=== PATIENT | female | born 1955 | race Hispanic/Latino ===

== ENCOUNTER 2018-11-02 08:21 | Inpatient (IN) | payer SELFPAY ==
[2018-11-02] MEDS ORDERED: Pantoprazole 80 MG in Sodium Chloride 0.9% 100 ML IVP SCH (08:45)
[2018-11-02 09:04] LABS: #Lymphocytes 1.3 thou/uL (1.20-3.40); #Monocytes 0.4 thou/uL (0.11-0.59); #Neutrophils 14.2 thou/uL (1.40-6.50); %Basophils 0.2 % (0.0-1.0); %Eosinophils 0.2 % (0.0-10.0); %Lymphocytes 8.4 % (21.0-51.0); %Monocytes 2.3 % (0.0-10.0); %Neutrophils 88.9 % (42.0-75.0); Hemoglobin 9.1 g/dL (12.0-16.0); Mean Corpuscular HGB CONC 33.2 g/dL (32.0-36.0); Mean Corpuscular Hemoglobin 28.1 pg (27.0-31.0); Mean Corpuscular Volume 84.7 fL (78.0-98.0); Mean Platelet Volume 8.3 fL (7.4-10.4); Platelet Count 471 thou/uL (130-400); RBC Distribution Width 14.2 % (11.5-14.5); Red Blood Cell (RBC) Count 3.22 mill/uL (4.20-5.40)
[2018-11-02] MEDS ORDERED: Ondansetron PF 4 MG/2 ML Vial ONE ×2 (09:12→16:09)
[2018-11-02] MEDS ORDERED: Promethazine HCl 25 MG/ML VIAL ONE ×2 (09:12→09:57)
--- NOTE | 2018-11-02 09:22 | RAD ---
CHEST 1 VIEW: COMPARISON: 08/03/2018. HISTORY: Emesis. Hematemesis. FINDINGS: Normal cardiac silhouette. The pulmonary vessels and hilum are normal. Costophrenic angles are kati r. Diminished lung volumes, likely due to a poor inspiratory effort. No masses or consolidation. N o pneumothorax or osseous abnormalities. IMPRESSION: No acute cardiopulmonary process. POS: [facility]
[2018-11-02 09:24] LABS: INR-International Normal Ratio 1.2; PTT 26.2 SEC (22.9-36.1); Prothrombin Time 14.9 SEC (12.0-14.7)
[2018-11-02 09:25] LABS: ALT (SGPT) Less than 7 U/L (8-55); AST (SGOT) 11 U/L (5-34); Albumin 3.7 g/dL (3.4-4.8); Alkaline Phosphatase 56 U/L (40-150); Anion Gap 16 mmol/L (10-20); BUN (Urea Nitrogen) 44 mg/dL (9.8-20.1); Bilirubin, Total 0.2 mg/dL (0.2-1.2); Calc. Creatinine Clearance 0 mL/min (70-130); Carbon Dioxide 14 mmol/L (23-31); Chloride 113 mmol/L (98-107); Estimated GFR-MDRD 51; Globulin 2.7 g/dL (2.4-3.5); Glucose 194 mg/dL (80-115); Lipase 4 U/L (8-78); Potassium 3.1 mmol/L (3.5-5.1); Protein, Total 6.4 g/dL (6.0-8.3); Sodium 140 mmol/L (136-145)
--- NOTE | 2018-11-02 10:40 | HP ---
PRIMARY CARE PROVIDER: Adrienne Conway. HISTORY OF PRESENT ILLNESS: Referred to [facility] by [place] [facility] with upper GI bleed. The patient developed abdominal pain, nausea and vomiting last night. She had been vomiting about 12 hours, has been vomiting coffee-grounds emesis. She was hospitalized in August of this year, underwent an endoscopy, past specimen showed no Helicobacter pylori. She was discharged on intensive dose of Protonix, ran out after one month and has not had it refilled. PAST MEDICAL HISTORY: Upper GI bleeding, August 2018; diabetes mellitus type 2; hypertension; osteoarthritis. CURRENT MEDICATIONS: 1. Metformin 500 mg twice a day. 2. ProAir HFA. 3. Tramadol 50 mg one or two tabs p.r.n. 4. Lisinopril 20 mg twice a day. 5. Gabapentin 900 mg three times a day. 6. Clonidine 0.1 mg as needed. 7. Potassium chloride 20 mEq a day. ALLERGIES: CIPRO CAUSED HIVES. PAST SURGICAL HISTORY: Cholecystectomy, hysterectomy. SOCIAL HISTORY: Full code status. Daughter at bedside, next of kin. No alcohol, tobacco. FAMILY HISTORY: Negative for inheritable diseases. REVIEW OF SYSTEMS: GENERAL: No fever, chills, dizziness, fainting. EYES: No double vision, blurred vision, flashing lights. EAR, NOSE AND THROAT: No ear pain or drainage. No nasal bleeding. No trouble swallowing. CARDIAC: No chest pain, orthopnea or paroxysmal nocturnal dyspnea. RESPIRATION: No cough, wheezing or asthma. GASTROINTESTINAL: In addition to this was mentioned in the PI, she did have one case of dark stool last night. GENITOURINARY: No hematuria, dysuria. MUSCULOSKELETAL: No pain or swelling in arms or legs. NEUROLOGICAL: No strokes, seizures, or focal weakness. PSYCHIATRIC: No anxiety, depression. SKIN: No bruising, bleeding or rash. HEME/LYMPH: No tender or swollen lymph nodes in axilla, inguinal, cervical area. PHYSICAL EXAMINATION: GENERAL: The patient is somewhat lethargic, but oriented, cooperative. VITAL SIGNS: Blood pressure 140/70, pulse 110, respirations 20, temperature 99.2. HEAD, EYES, EARS, NOSE, AND THROAT: Reveal pupils are equal, round, and reactive to light. Extraocular movements are intact. Sclerae are white. Tympanic membranes clear. Nose clear. Oral mucous membranes are dry. Dental hygiene is adequate. NECK: Supple without jugular venous distention, adenopathy or thyromegaly. CHEST: Clear to auscultation percussion. HEART: Regular rate and rhythm. First and second heart sounds are clear. There are no appreciated murmurs or gallops. ABDOMEN: Soft. Bowel sounds are normal. There is no hepatosplenomegaly. No mass. No rebound or bruits. EXTREMITIES: Reveal no cyanosis, clubbing, or edema. PULSES: Carotid, radial, femoral, and dorsalis pedis pulses intact. SKIN: Warm and dry without bruises or rash. HEME/LYMPH: No tender or swollen lymph nodes in axilla, inguinal, cervical area. NEUROLOGICAL: Cranial nerves 2 through 12 intact. Deep tendon reflexes symmetric. IMAGING DATA: Have looked for an EKG, have not found one. We will order one, if not found. Chest x-ray, large air bubble in stomach. No cardiomegaly, CHF, or infiltrate; reviewed by me. LABORATORY DATA: Sodium 140, potassium 3.1, CO2 14, BUN 44, creatinine 1.08, blood sugar 194. Liver function tests normal. White count 16.0, hemoglobin 9.1, platelet count 471,000. ADMITTING DIAGNOSES: 1. Upper gastrointestinal bleeding. 2. Acute blood loss anemia. 3. History of peptic ulcer disease. 4. Diabetes mellitus type 2, not in control. 5. Hypertension. 6. Metabolic acidosis. 7. Hypokalemia. PLAN: 1. IV fluid resuscitation, start with a bolus. Continue at 150 mL an hour of normal saline. 2. 40 mg IV q.12 hours. 3. Serial H and H q.6 hours. 4. Replace potassium. 5. Accu-Chek, sliding scale. 6. GI consult. Job ID: [id number]
[2018-11-02] MEDS ORDERED: HumaLOG 300 UNITS/3 ML VIAL SC PRN (11:30)
[2018-11-02] MEDS ORDERED: Dextrose 5% in Water 1,000 ML IV PRN (11:30)
[2018-11-02] MEDS ORDERED: Dextrose 50% Abboject 50 ML SYRINGE SLOW IVP PRN (11:30)
[2018-11-02 12:50] LABS: Bilirubin Negative (Negative); Blood, Urine Negative (Negative); Clarity CLEAR (Clear); Glucose, Urine (Dipstick) Negative (Negative); Leukocyte Negative (Negative); Nitrite Negative (Negative); Protein, Urine (Dipstick) Negative (Neg-Trace); Specific Gravity, Urine 1.013 (1.002-1.036); Urobilinogen 0.2 mg/dL (0.2-1.0); pH, Urine 6.5 (5.0-9.0)
[2018-11-02 13:07] LABS: #Lymphocytes 1.3 thou/uL (1.20-3.40); #Monocytes 0.2 thou/uL (0.11-0.59); #Neutrophils 14.6 thou/uL (1.40-6.50); %Basophils 0.1 % (0.0-1.0); %Eosinophils 0.1 % (0.0-10.0); %Monocytes 1.1 % (0.0-10.0); %Neutrophils 90.8 % (42.0-75.0); Mean Corpuscular HGB CONC 33.6 g/dL (32.0-36.0); Mean Corpuscular Hemoglobin 28.4 pg (27.0-31.0); Mean Corpuscular Volume 84.7 fL (78.0-98.0); Mean Platelet Volume 7.9 fL (7.4-10.4); Platelet Count 438 thou/uL (130-400); RBC Distribution Width 14.1 % (11.5-14.5); White Blood Cell (WBC) Count 16.1 thou/uL (4.8-10.8)
[2018-11-02] MEDS ORDERED: Lidocaine 1% PF 5 ML VIAL ONE (16:09)
[2018-11-02] MEDS ORDERED: Succinylcholine Chloride 20 MG/ML 10 ml SYRINGE FS ONE (16:09)
[2018-11-02] MEDS ORDERED: Rocuronium Bromide 10 MG/ML (10ML VIAL) ONE (16:09)
[2018-11-02] MEDS ORDERED: Glycopyrrolate 0.2 MG/ML 5 ML SYRINGE ONE (16:09)
[2018-11-02] MEDS ORDERED: Esmolol 100 MG/10 ML VIAL ONE (16:09)
[2018-11-02] MEDS ORDERED: PROPOFOL 200 MG/20 ML VIAL ONE (16:09)
[2018-11-02] MEDS ORDERED: PHENYLEPHRINE-NS 100 MCG/ML 10 ML SYRINGE ONE (16:09)
[2018-11-02] MEDS ORDERED: ePHEDrine 50 MG/ML VIAL ONE (16:09)
[2018-11-02] MEDS ORDERED: Fentanyl 100 MCG/2 ML VIAL ONE ×2 (16:31→16:32)
[2018-11-02] MEDS ORDERED: Ondansetron HCl/PF 4 MG/2 ML Vial IVP PRN (17:44)
[2018-11-02] MEDS ORDERED: Promethazine HCl 25 MG/ML VIAL SLOW IVP PRN (17:44)
[2018-11-02] MEDS ORDERED: Promethazine HCl 25 MG/ML VIAL IM PRN (17:44)
[2018-11-02 17:59] LABS: Hemoglobin 11.5 g/dL (12.0-16.0); Mean Corpuscular HGB CONC 31.9 g/dL (32.0-36.0); Mean Corpuscular Hemoglobin 28.1 pg (27.0-31.0); Mean Corpuscular Volume 87.9 fL (78.0-98.0); Mean Platelet Volume 8.2 fL (7.4-10.4); Platelet Count 325 thou/uL (130-400); RBC Distribution Width 15.1 % (11.5-14.5); Red Blood Cell (RBC) Count 4.12 mill/uL (4.20-5.40); White Blood Cell (WBC) Count 14.8 thou/uL (4.8-10.8)
[2018-11-02 18:21] LABS: Anisocytosis SLIGHT = 6-15 cells (100X) (0-5/hpf); Band 9 % (5-11); Burr Cells SLIGHT = 2-5 cells (100X) (0-1/hpf); Hypochromia SLIGHT = 6-15 cells (100X) (0-5/hpf); Lymphocytes 18 % (21-51); MDiff Complete? YES; Neutrophil 72 % (42-75); Ovalocytes SLIGHT = 2-5 cells (100X) (0-1/hpf); Platelet Morphology Comment Appears Adequate; Polychromasia SLIGHT = 2-3 cells (100X) (0-2/hpf); Reactive Lymphocytes 1 % (0-10)
[2018-11-02] MEDS ORDERED: Labetalol HCl 100 MG/20 ML VIAL SLOW IVP PRN (19:14)
[2018-11-02] MEDS: Sodium Chloride 0.9% 1,000 ML IV SCH ×2 (20:15→20:16)
[2018-11-02] MEDS: Ondansetron ODT 4 MG TAB PO PRN (20:16)
[2018-11-02] MEDS: Pantoprazole 40 MG VIAL IVP SCH (20:17)
[2018-11-02 20:22] VITALS: BMI 27.4
[2018-11-02] MEDS: Labetalol HCl 100 MG/20 ML VIAL SLOW IVP PRN (22:09)
[2018-11-03] MEDS: Sodium Chloride 0.9% 1,000 ML IV SCH ×2 (00:09→06:22)
[2018-11-03] MEDS: Gabapentin 300 MG CAP PO SCH ×6 (00:09→23:03)
[2018-11-03 00:54] LABS: Band 1 % (5-11); Hemoglobin 11.4 g/dL (12.0-16.0); Hypochromia SLIGHT = 6-15 cells (100X) (0-5/hpf); Lymphocytes 6 % (21-51); MDiff Complete? YES; Mean Corpuscular HGB CONC 33.6 g/dL (32.0-36.0); Mean Corpuscular Hemoglobin 28.3 pg (27.0-31.0); Mean Corpuscular Volume 84.3 fL (78.0-98.0); Mean Platelet Volume 7.8 fL (7.4-10.4); Monocytes 2 % (0-10); Neutrophil 91 % (42-75); Platelet Count 282 thou/uL (130-400); Platelet Morphology Comment Appears Adequate; Red Blood Cell (RBC) Count 4.02 mill/uL (4.20-5.40); White Blood Cell (WBC) Count 20.1 thou/uL (4.8-10.8)
[2018-11-03] MEDS ORDERED: Promethazine HCl 25 MG/ML VIAL IM/IV PRN (01:52)
[2018-11-03] MEDS: Labetalol HCl 100 MG/20 ML VIAL SLOW IVP PRN (01:58)
[2018-11-03] MEDS: Morphine 4 MG/ML VIAL SLOW IVP PRN ×2 (02:07→08:37)
--- NOTE | 2018-11-03 05:28 | CON ---
DATE OF CONSULTATION: 11/02/2018 REFERRING DOCTOR: Radha Harp MD REASON FOR CONSULTATION: History of coffee ground vomiting and also black tarry stools. HISTORY OF PRESENT ILLNESS: Maisha Qureshi is a 63-year-old Latin-Maur[place] female, who is known to me from before. She was hospitalized in July 2018 with black tarry stool; underwent an EGD. She was found to have multiple gastric ulcers and also a necrotic ulcer in duodenal bulb. Her gastric biopsy was negative for Helicobacter pylori. She was discharged on PPI. She was also come and see me in my office, but she did not show for the appointment. The patient did take the medications for nearly about a month and then she ran out of medications. She stopped taking the medication subsequently. The patient has done well until last night. She was not taking aspirin or any NSAID medication. The patient noted epigastric discomfort, nausea, and vomiting and started having some black tarry stool and also vomited coffee-ground material. She did through the night and she went nauseous. She came to the ER and hospitalized. In the ER, she had a CBC done, which showed WBC of 16,000, hemoglobin 9.1 and hematocrit 27.3, which have dropped down to hemoglobin 8 and hematocrit 23.7. She was seen in the Day Surgery. She appears ill and she appears pale. She says she is having nausea and trying to gag and vomit. She did not vomit in the Day Surgery.She was also tachycardic with a pulse rate of 136, blood pressure 120/58. There is no other relevant history. ALLERGIES: CIPRO. SOCIAL HISTORY: The patient does not smoke or drink alcohol. MEDICAL ILLNESSES: 1. Hypertension. 2. Diabetes mellitus. 3. Osteoarthritis. 4. Upper GI bleeding in July 2018 and had an EGD and was found to have multiple gastric ulcers and also large ulcer in the duodenum. PAST SURGICAL HISTORY: 1. Hysterectomy. 2. Cholecystectomy. MEDICATIONS LIST: Reviewed, which include: 1. Metformin. 2. ProAir. 3. Tramadol. 4. Lisinopril. 5. Gabapentin. 6. Clonidine. 7. Potassium chloride. FAMILY HISTORY: There is no family history of cancer, stroke, or heart disease. REVIEW OF SYSTEMS: CONSTITUTIONAL: Remarkable for a feeling dizzy, feeling sick to her stomach, nausea, vomiting, vague abdominal discomfort, melena, coffee-ground vomiting. CENTRAL NERVOUS SYSTEM: She also feels dizzy and lightheaded. Other systems reviewed and are normal. PHYSICAL EXAMINATION: GENERAL: She appears pale. She is awake and communicative. She is tachycardic. VITAL SIGNS: Pulse is 136 and blood pressure 120/58. HEENT: Conjunctivae clear. NECK: Supple. No adenitis or thyromegaly noted. CARDIOVASCULAR SYSTEM: First and second heart sounds heard. LUNGS: Clear to auscultation. ABDOMEN: Soft. Abdomen is mildly tender over the epigastric area. There is no rebound or guarding. EXTREMITIES: Reveal no edema. LABORATORY DATA: Potassium 3.1, BUN is 44 most recent GI bleeding, creatinine 1.08, glucose 194, calcium 9. Bilirubin 0.2, AST 11, ALT 7, alkaline phosphatase 56, lipase is 4. CBC shows anemia, hemoglobin 8, hematocrit 23.7, WBC count is 16,000, platelets 458,000, polymorphs 90, lymphocytes 8. CBC on 08/07/2018, hemoglobin 10.6 and hematocrit 31.1. CLINICAL IMPRESSION: 1. Acute upper gastrointestinal bleeding, most likely from the ulceration. She took the medications only for few weeks and stopped taking the medications after 1 month of therapy. The patient's ulcers are quite large and I believe . 2. Anemia due to blood loss. 3. Hypertension. 4. Diabetes mellitus. 5. Osteoarthritis. 6. Gastric ulcers and large ulcer in the duodenum. RECOMMENDATIONS: 1. N.p.o., IV PPI, IV fluids. 2. Transfuse if she is tachycardic and I believe her blood count is going to drop down further. I will plan on EGD as soon as possible. The patient's son was in the room and he was able to talk to her and respond it to me, and she was explained about the plan of treatment. She is agreeable. Job ID: [id number]
[2018-11-03 06:35] LABS: Reticulocyte Count 1.8 % (0.5-1.5)
[2018-11-03 06:40] LABS: #Lymphocytes 2.3 thou/uL (1.20-3.40); #Monocytes 0.8 thou/uL (0.11-0.59); #Neutrophils 11.9 thou/uL (1.40-6.50); %Basophils 0.1 % (0.0-1.0); %Eosinophils 0.1 % (0.0-10.0); %Lymphocytes 15.6 % (21.0-51.0); %Monocytes 5.3 % (0.0-10.0); Hemoglobin 10.4 g/dL (12.0-16.0); Mean Corpuscular HGB CONC 33.8 g/dL (32.0-36.0); Mean Corpuscular Hemoglobin 28.1 pg (27.0-31.0); Mean Corpuscular Volume 82.9 fL (78.0-98.0); Mean Platelet Volume 8.3 fL (7.4-10.4); Platelet Count 282 thou/uL (130-400); RBC Distribution Width 14.8 % (11.5-14.5); Red Blood Cell (RBC) Count 3.71 mill/uL (4.20-5.40)
[2018-11-03 06:50] LABS: Anion Gap 14 mmol/L (10-20); BUN (Urea Nitrogen) 21 mg/dL (9.8-20.1); Calc. Creatinine Clearance 67 mL/min (70-130); Calcium 7.9 mg/dL (7.8-10.44); Carbon Dioxide 17 mmol/L (23-31); Chloride 110 mmol/L (98-107); Estimated GFR-MDRD 75; Glucose 141 mg/dL (80-115); Iron 128 ug/dL (50-170); Iron Binding Capacity, Total 365 mcg/dL (265-497); Magnesium 1.2 mg/dL (1.6-2.6); Sodium 139 mmol/L (136-145)
[2018-11-03 06:53] LABS: Potassium 1.9 mmol/L (3.5-5.1)
[2018-11-03] MEDS ORDERED: Potassium Chloride 20 MEQ TAB PO SCH ×2 (08:00→19:15)
[2018-11-03] MEDS ORDERED: Magnesium Sulfate 4 GM in Sodium Chloride 0.9% 250 ML 250 ML IVPB SCH (08:00)
[2018-11-03] MEDS ORDERED: Loperamide HCl 2 MG CAP PO PRN (08:01)
[2018-11-03] MEDS ORDERED: Bisacodyl 5 MG TAB PO PRN (08:01)
[2018-11-03] MEDS ORDERED: Sodium Chloride 0.65% Nasal 44 ML BOT EA NARE PRN (08:01)
[2018-11-03] MEDS ORDERED: Ondansetron PF 4 MG/2 ML Vial IVP PRN (08:01)
[2018-11-03] MEDS ORDERED: Diabetic Tussin 200 MG/10 ML UDCUP PO PRN (08:01)
[2018-11-03] MEDS ORDERED: Cepastat Lozenges 1 LOZ PO PRN (08:01)
[2018-11-03] MEDS ORDERED: hydrALAZINE 20 MG/ML VIAL SLOW IVP PRN (08:01)
[2018-11-03] MEDS ORDERED: Acetaminophen 500 MG TAB PO PRN (08:01)
[2018-11-03] MEDS ORDERED: Loratadine 10 MG TAB PO PRN (08:01)
[2018-11-03] MEDS ORDERED: Artificial Tears 18 DROP/0.9 ML EA EYE PRN (08:01)
[2018-11-03] MEDS ORDERED: Senokot S 8.6-50 MG TAB PO PRN (08:01)
[2018-11-03] MEDS ORDERED: Eucerin (Mineral Oil/Petrolatum,White) 30 gm Jar TOP PRN (08:01)
[2018-11-03] MEDS ORDERED: Benzonatate 100 MG CAP PO PRN (08:01)
[2018-11-03 08:20] LABS: Phosphorus 2.1 mg/dL (2.3-4.7)
[2018-11-03] MEDS ORDERED: Potassium Phosphate 30 MMOL in Sodium Chloride 0.9% 500 ML IVPB SCH (08:30)
[2018-11-03] MEDS ORDERED: Potassium Chloride 20 MEQ in Premix Bag 1 BAG IVPB SCH (08:30)
[2018-11-03] MEDS: NS 0.9% w/ 20 MEQ KCL 1,000 ML/1,000 ML BAG IV SCH (08:31)
--- NOTE | 2018-11-03 09:10 | OP ---
DATE OF PROCEDURE: 11/02/2018 OPERATIVE PROCEDURES: 1. Esophagogastroduodenoscopy with biopsy. 2. Esophagogastroduodenoscopy with injection of 1:10,000 epinephrine to control bleeding over the duodenal bulb. 3. Esophagogastroduodenoscopy with heater probe therapy. PREOPERATIVE DIAGNOSES: Acute GI bleeding, hematemesis, melena. The patient is undergoing EGD. POSTOPERATIVE DIAGNOSES: 1. Small gastric ulcer over the gastric antrum, nonbleeding. 2. Pyloric channel ulcer, not bleeding. 3. Large ulcer in the duodenal bulb with a visible vessel oozing of blood. DESCRIPTION OF PROCEDURE: The patient was intubated and was given sedation by Anesthesia Department. A bite block was placed. The patient was turned on the left lateral position. A Pentax video gastroscope under direct vision passed down the oropharynx, past the GE junction into the stomach. The esophageal mucosa appeared normal. There was no blood in the esophagus. In the GE junction, no Sunshine-Pastor tear or bleeding seen. The patient had about 200 to 300 mL of bilious material in stomach. No blood seen in the stomach. The fundus and cardia, gastric body, no pathology seen. The patient had a gastric ulcer over the gastric antrum, nonbleeding. She has another ulcer at the pyloric channel. There was no active bleeding. In the apex of the duodenal bulb, the patient was found to have ulceration with a visible vessel oozing blood. In the descending duodenum, no pathology seen. The scope was withdrawn back to the duodenal bulb. Water was irrigated and washed out. Injection of epinephrine 1:10,000, total of 6 mL at 1 mL increments. Following injection, a 7-[place]ong[place] BiCap probe was and the ulcer base cauterized with good hemostasis. The ulcer base several times using the probe and I did not see any bleeding. The scope was withdrawn back to the stomach and biopsy of the gastric antrum and gastric body. The stomach decompressed and scope removed. RECOMMENDATIONS: 1. Keep n.p.o. for tonight. 2. Serial hemoglobin and hematocrit. 3. IV PPI. 4. Transfuse p.r.n. Job ID: [id number]
[2018-11-03] MEDS: cloNIDine 0.1 MG TAB PO SCH ×2 (09:16→20:16)
[2018-11-03] MEDS: Lisinopril 20 MG TAB PO SCH (09:16)
[2018-11-03] MEDS: Pantoprazole 40 MG VIAL IVP SCH ×2 (09:17→20:17)
--- NOTE | 2018-11-03 11:15 | PDOC.PN ---
- Subjective Encounter Start Date: 11/03/18 Encounter Start Time: 08:30 -: old records requested/rev Patient seen and examined. No new complaints. No overnight events - Objective Resuscitation Status - Order Detail: 11/02/18 10:04 Resuscitation Status Routine Resuscitation Status: FULL: Full Resuscitation MAR Reviewed: Yes Vital Signs & Weight: Vital Signs (12 hours) Temp Pulse Resp BP BP Pulse Ox 11/03/18 09:16 185/75 H 11/03/18 08:00 100.0 F H 89 16 187/77 H 99 11/03/18 04:00 98.1 F 74 18 166/73 H 100 11/03/18 01:58 85 185/75 H 11/03/18 00:00 97.4 F L 85 18 185/75 H 99 Weight Weight 127 lb I&O: 11/02/18 11/03/18 11/04/18 06:59 06:59 06:59 Intake Total 1950 360 Output Total 900 Balance 1050 360 Result Diagrams: 11/03/18 05:36 11/03/18 05:28 Additional Labs: Accuchecks 11/03/18 11/02/18 11/02/18 05:14 20:54 14:51 POC Glucose 134 H 160 H 185 H Phys Exam - Physical Examination Constitutional: NAD HEENT: PERRLA, moist MMs, sclera anicteric Neck: no JVD, supple Respiratory: no wheezing, no rales, no rhonchi Cardiovascular: RRR, no significant murmur, no rub Gastrointestinal: soft, non-tender, no distention, positive bowel sounds Musculoskeletal: no edema, pulses present Neurological: non-focal, normal sensation Lymphatic: no nodes Psychiatric: normal affect, A&O x 3 Skin: no rash, normal turgor Dx/Plan (1) Anemia due to acute blood loss Code(s): D62 - ACUTE POSTHEMORRHAGIC ANEMIA Status: Acute (2) Hypokalemia Code(s): E87.6 - HYPOKALEMIA Status: Acute (3) Hypomagnesemia Code(s): E83.42 - HYPOMAGNESEMIA Status: Acute (4) Upper GI bleed Code(s): K92.2 - GASTROINTESTINAL HEMORRHAGE, UNSPECIFIED Status: Acute (5) Diabetes type 2, controlled Code(s): E11.9 - TYPE 2 DIABETES MELLITUS WITHOUT COMPLICATIONS Status: Chronic (6) Dyslipidemia Code(s): E78.5 - HYPERLIPIDEMIA, UNSPECIFIED Status: Chronic (7) HTN (hypertension) Code(s): I10 - ESSENTIAL (PRIMARY) HYPERTENSION Status: Chronic Qualifiers: (8) Neuropathic pain Status: Chronic (9) PUD (peptic ulcer disease) Code(s): K27.9 - PEPTIC ULC, SITE UNSP, UNSP AC OR CHR, W/O HEMOR OR PERF Status: Chronic (10) Restless leg syndrome Status: Chronic - Plan cont current plan of care, plan discussed w/ family, out of bed/ambulate * replace magnesium sulfate * replace potassium phosphate * change IVF with potassium * repeat labs tomorrow * discussed with family * continue protonix * medication reviewed as below * symptomatic treatment. Review of Systems - Review of Systems ENT: negative: Ear Pain, Ear Discharge, Nose Pain, Nose Discharge, Nose Congestion, Mouth Pain, Mouth Swelling, Throat Pain, Throat Swelling, Other Respiratory: negative: Cough, Dry, Shortness of Breath, Hemoptysis, SOB with Excertion, Pleuritic Pain, Sputum, Wheezing Cardiovascular: negative: chest pain, palpitations, orthopnea, paroxysmal nocturnal dyspnea, edema, light headedness, other Gastrointestinal: negative: Nausea, Vomiting, Abdominal Pain, Diarrhea, Constipation, Melena, Hematochezia, Other Genitourinary: negative: Dysuria, Frequency, Incontinence, Hematuria, Retention , Other Musculoskeletal: negative: Neck Pain, Shoulder Pain, Arm Pain, Back Pain, Hand Pain, Leg Pain, Foot Pain, Other - Medications/Allergies Allergies/Adverse Reactions: Allergies Allergy/AdvReac Type Severity Reaction Status Date / Time ciprofloxacin Allergy Verified 11/02/18 15:06 Medications: Current Medications Acetaminophen (Tylenol) 650 mg PO Q4H PRN PRN Reason: Headache/Fever/Mild Pain (1-3) Artificial Tears (Tears Naturale) 2 drop EA EYE PRN PRN PRN Reason: Dry Eyes Benzonatate (Tessalon) 100 mg PO Q6H PRN PRN Reason: Cough Bisacodyl (Dulcolax) 10 mg PO DAILYPRN PRN PRN Reason: Constipation Clonidine (Catapres) 0.1 mg PO BID [facility] Last Admin: 11/03/18 09:16 Dose: 0.1 mg Dextrose/Water (Dextrose 50%) 25 gm SLOW IVP PRN PRN PRN Reason: Hypoglycemia Gabapentin (Neurontin) 300 mg PO TID [facility] Last Admin: 11/03/18 09:16 Dose: 300 mg Gabapentin (Neurontin) 300 mg PO NOW [facility] Stop: 11/04/18 01:00 Last Admin: 11/03/18 00:09 Dose: 300 mg Glucagon (Glucagon) 1 mg IM PRN PRN PRN Reason: Hypoglycemia Guaifenesin (Robitussin Sf) 200 mg PO Q4H PRN PRN Reason: Cough Hydralazine HCl (Apresoline) 10 mg SLOW IVP Q4H PRN PRN Reason: SBP > 180 and HR < 70 Dextrose/Water (D5w) 1,000 mls @ 0 mls/hr IV .Q0M PRN PRN Reason: Hypoglycemia Potassium Chloride/Sodium Chloride (Ns 0.9% W/ 20 Meq Kcl) 1,000 ml in 1,000 mls @ 50 mls/hr IV .Q20H [facility] Last Admin: 11/03/18 08:31 Dose: 1,000 mls Potassium Phosphate 30 mmol/ (Sodium Chloride) 510 mls @ 83.3 mls/hr IVPB ONE [facility] Stop: 11/03/18 13:00 Last Admin: 11/03/18 09:22 Dose: 510 mls Insulin Human Lispro (Humalog) 0 units SC .MODERATE SLIDING SC PRN PRN Reason: Moderate Correctional Scale Labetalol HCl (Normodyne) 10 mg SLOW IVP Q4H PRN PRN Reason: SBP > 170, DBP > 100 Last Admin: 11/03/18 01:58 Dose: 10 mg Lisinopril (Zestril) 20 mg PO DAILY [facility] Last Admin: 11/03/18 09:16 Dose: 20 mg Loperamide HCl (Imodium) 2 mg PO PRN PRN PRN Reason: Diarrhea/Loose Stools Loratadine (Claritin) 10 mg PO DAILYPRN PRN PRN Reason: Sinus Symptoms Mineral Oil/White Petrolatum (Eucerin Cream) 0 gm TOP BIDPRN PRN PRN Reason: Dry Skin Ondansetron HCl (Zofran Odt) 4 mg PO Q6H PRN PRN Reason: Nausea/Vomiting Last Admin: 11/02/18 20:16 Dose: 4 mg Ondansetron HCl (Zofran) 4 mg IVP Q6H PRN PRN Reason: Nausea/Vomiting Pantoprazole Sodium (Protonix) 40 mg IVP Q12HR [facility] Last Admin: 11/03/18 09:17 Dose: 40 mg Promethazine HCl (Phenergan) 12.5 mg IM/IV Q6H PRN PRN Reason: Nausea/Vomiting Last Admin: 11/03/18 02:08 Dose: 12.5 mg Senna/Docusate Sodium (Senokot S) 2 tab PO BID PRN PRN Reason: Constipation Sodium Chloride ([place] Nasal [place] 0.65%) 0 ml EA NARE QIDPRN PRN PRN Reason: Nasal Congestion Throat Lozenges (Cepastat Lozenges) 1 tyler PO Q2H PRN PRN Reason: Sore Throat
[2018-11-03] MEDS: Acetaminophen 325 MG TAB PO PRN (11:23)
[2018-11-03 18:35] LABS: Potassium 2.8 mmol/L (3.5-5.1)
[2018-11-03] MEDS: Ondansetron ODT 4 MG TAB PO PRN (22:11)
[2018-11-04] MEDS: Acetaminophen 325 MG TAB PO PRN (01:49)
[2018-11-04] MEDS: NS 0.9% w/ 20 MEQ KCL 1,000 ML/1,000 ML BAG IV SCH ×2 (05:22→17:37)
[2018-11-04 06:09] LABS: #Eosinphils 0.1 thou/uL (0.0-0.7); #Lymphocytes 2.9 thou/uL (1.20-3.40); #Monocytes 0.7 thou/uL (0.11-0.59); #Neutrophils 4.1 thou/uL (1.40-6.50); %Basophils 0.6 % (0.0-1.0); %Eosinophils 0.8 % (0.0-10.0); %Lymphocytes 37.8 % (21.0-51.0); %Monocytes 8.6 % (0.0-10.0); %Neutrophils 52.2 % (42.0-75.0); Hemoglobin 8.4 g/dL (12.0-16.0); Mean Corpuscular HGB CONC 34.2 g/dL (32.0-36.0); Mean Corpuscular Hemoglobin 29.1 pg (27.0-31.0); Mean Corpuscular Volume 85.1 fL (78.0-98.0); Mean Platelet Volume 8.1 fL (7.4-10.4); Platelet Count 237 thou/uL (130-400); RBC Distribution Width 15.1 % (11.5-14.5); Red Blood Cell (RBC) Count 2.88 mill/uL (4.20-5.40); White Blood Cell (WBC) Count 7.8 thou/uL (4.8-10.8)
[2018-11-04 06:29] LABS: ALT (SGPT) Less than 7 U/L (8-55); AST (SGOT) 15 U/L (5-34); Alkaline Phosphatase 39 U/L (40-150); Anion Gap 11 mmol/L (10-20); BUN (Urea Nitrogen) 17 mg/dL (9.8-20.1); Bilirubin, Total 0.4 mg/dL (0.2-1.2); Calc. Creatinine Clearance 71 mL/min (70-130); Calcium 7.8 mg/dL (7.8-10.44); Carbon Dioxide 16 mmol/L (23-31); Chloride 115 mmol/L (98-107); Estimated GFR-MDRD 79; Glucose 110 mg/dL (80-115); Magnesium 2.5 mg/dL (1.6-2.6); Sodium 139 mmol/L (136-145)
[2018-11-04 06:38] LABS: Potassium 2.9 mmol/L (3.5-5.1)
[2018-11-04] MEDS: Potassium Chloride 20 MEQ TAB PO SCH ×2 (07:34→09:41)
--- NOTE | 2018-11-04 08:28 | PRG ---
DATE OF SERVICE: 11/03/2018 SUBJECTIVE: This is a 63-year-old female, hospitalized with melena, vomiting coffee-ground material. She had an EGD done yesterday, which revealed bleeding peptic ulcer over the duodenal bulb. This was injected with epinephrine and cauterized. She had done well overnight. She has had no stool through the night and this morning. She has no more nausea. She has severe arthritis and has complained of severe pain in the legs. She is tolerating diabetic diet without any nausea. Her blood count has been pretty stable. After transfusion, it came up to 11.5 and then dipped to 10.4. This is most likely from dehydration. Her BUN was 44, does drop to 21 today. Her potassium level is low at . symptoms except for the pain over both legs. PHYSICAL EXAMINATION: VITAL SIGNS: Afebrile, pulse 75, blood pressure is 141/72. HEENT: Conjunctivae are clear. CARDIOVASCULAR SYSTEM: First and second heart sounds. LUNGS: Clear to auscultation. ABDOMEN: Soft. No organomegaly. No tenderness. No masses. IMPRESSION: Bleeding peptic ulcer and she had similar episodes in July 2018. Also likely is healing and the large ulcer seen on the gastric antrum has almost healed. The duodenal ulcer is also healing. However, she was found to have visible vessel bleeding yesterday. She had injection of epinephrine followed by BiCap probe therapy. RECOMMENDATIONS: 1. Avoid NSAID and aspirin. 2. Continue PPI. I had a long talk with the patient and explained that she needs to be on long-term PPI. 3. If the patient does well overnight without any problem, may consider discharge home. I would recommend long-term PPI. I would not for the next several years. Job ID: [id number]
--- NOTE | 2018-11-04 09:30 | PDOC.PN ---
- Subjective Encounter Start Date: 11/04/18 Encounter Start Time: 08:40 Patient seen and examined. No new complaints. No overnight events - Objective Resuscitation Status - Order Detail: 11/02/18 10:04 Resuscitation Status Routine Resuscitation Status: FULL: Full Resuscitation MAR Reviewed: Yes Vital Signs & Weight: Vital Signs (12 hours) Temp Pulse Resp BP BP BP BP 11/04/18 05:00 126/61 123/67 121/71 122/61 11/04/18 04:00 98.6 F 72 18 126/61 Pulse Ox 11/04/18 05:00 11/04/18 04:00 98 Weight Weight 127 lb I&O: 11/03/18 11/04/18 11/05/18 06:59 06:59 06:59 Intake Total 1950 1940 Output Total 900 Balance 1050 1940 Result Diagrams: 11/04/18 05:51 11/04/18 05:51 Additional Labs: Accuchecks 11/04/18 11/03/18 11/03/18 04:41 20:44 16:48 POC Glucose 116 H 144 H 143 H 11/03/18 11:26 POC Glucose 204 H Phys Exam - Physical Examination Constitutional: NAD HEENT: PERRLA, moist MMs, sclera anicteric Neck: no JVD, supple Respiratory: no wheezing, no rales, no rhonchi Cardiovascular: RRR, no significant murmur, no rub Gastrointestinal: soft, non-tender, no distention, positive bowel sounds Musculoskeletal: no edema, pulses present Neurological: non-focal, normal sensation Dx/Plan (1) Anemia due to acute blood loss Code(s): D62 - ACUTE POSTHEMORRHAGIC ANEMIA Status: Acute (2) Hypokalemia Code(s): E87.6 - HYPOKALEMIA Status: Acute (3) Hypomagnesemia Code(s): E83.42 - HYPOMAGNESEMIA Status: Acute (4) Upper GI bleed Code(s): K92.2 - GASTROINTESTINAL HEMORRHAGE, UNSPECIFIED Status: Acute (5) Diabetes type 2, controlled Code(s): E11.9 - TYPE 2 DIABETES MELLITUS WITHOUT COMPLICATIONS Status: Chronic (6) Dyslipidemia Code(s): E78.5 - HYPERLIPIDEMIA, UNSPECIFIED Status: Chronic (7) HTN (hypertension) Code(s): I10 - ESSENTIAL (PRIMARY) HYPERTENSION Status: Chronic Qualifiers: (8) Neuropathic pain Status: Chronic (9) PUD (peptic ulcer disease) Code(s): K27.9 - PEPTIC ULC, SITE UNSP, UNSP AC OR CHR, W/O HEMOR OR PERF Status: Chronic (10) Restless leg syndrome Status: Chronic - Plan cont current plan of care, plan discussed w/ family * replace potassium * check mag and phos * medication reviewed as below * symptomatic treatment * continue IVF * discharge soon * discussed with family bedside * ambulate as tolerated * educated about avoidance of NSAID. * her H & H has dropped today, will repeat labs tomorrow Review of Systems - Review of Systems ENT: negative: Ear Pain, Ear Discharge, Nose Pain, Nose Discharge, Nose Congestion, Mouth Pain, Mouth Swelling, Throat Pain, Throat Swelling, Other Respiratory: negative: Cough, Dry, Shortness of Breath, Hemoptysis, SOB with Excertion, Pleuritic Pain, Sputum, Wheezing Cardiovascular: negative: chest pain, palpitations, orthopnea, paroxysmal nocturnal dyspnea, edema, light headedness, other Gastrointestinal: negative: Nausea, Vomiting, Abdominal Pain, Diarrhea, Constipation, Melena, Hematochezia, Other Genitourinary: negative: Dysuria, Frequency, Incontinence, Hematuria, Retention , Other Musculoskeletal: negative: Neck Pain, Shoulder Pain, Arm Pain, Back Pain, Hand Pain, Leg Pain, Foot Pain, Other - Medications/Allergies Allergies/Adverse Reactions: Allergies Allergy/AdvReac Type Severity Reaction Status Date / Time ciprofloxacin Allergy Verified 11/02/18 15:06 Medications: Current Medications Acetaminophen (Tylenol) 650 mg PO Q4H PRN PRN Reason: Headache/Fever/Mild Pain (1-3) Last Admin: 11/04/18 01:49 Dose: 650 mg Artificial Tears (Tears Naturale) 2 drop EA EYE PRN PRN PRN Reason: Dry Eyes Benzonatate (Tessalon) 100 mg PO Q6H PRN PRN Reason: Cough Bisacodyl (Dulcolax) 10 mg PO DAILYPRN PRN PRN Reason: Constipation Clonidine (Catapres) 0.1 mg PO BID [facility] Last Admin: 11/03/18 20:16 Dose: 0.1 mg Dextrose/Water (Dextrose 50%) 25 gm SLOW IVP PRN PRN PRN Reason: Hypoglycemia Gabapentin (Neurontin) 300 mg PO TID [facility] Last Admin: 11/03/18 20:17 Dose: 300 mg Glucagon (Glucagon) 1 mg IM PRN PRN PRN Reason: Hypoglycemia Guaifenesin (Robitussin Sf) 200 mg PO Q4H PRN PRN Reason: Cough Hydralazine HCl (Apresoline) 10 mg SLOW IVP Q4H PRN PRN Reason: SBP > 180 and HR < 70 Dextrose/Water (D5w) 1,000 mls @ 0 mls/hr IV .Q0M PRN PRN Reason: Hypoglycemia Potassium Chloride/Sodium Chloride (Ns 0.9% W/ 20 Meq Kcl) 1,000 ml in 1,000 mls @ 50 mls/hr IV .Q20H [facility] Last Admin: 11/04/18 05:22 Dose: Not Given Insulin Human Lispro (Humalog) 0 units SC .MODERATE SLIDING SC PRN PRN Reason: Moderate Correctional Scale Labetalol HCl (Normodyne) 10 mg SLOW IVP Q4H PRN PRN Reason: SBP > 170, DBP > 100 Last Admin: 11/03/18 01:58 Dose: 10 mg Lisinopril (Zestril) 20 mg PO DAILY [facility] Last Admin: 11/03/18 09:16 Dose: 20 mg Loperamide HCl (Imodium) 2 mg PO PRN PRN PRN Reason: Diarrhea/Loose Stools Loratadine (Claritin) 10 mg PO DAILYPRN PRN PRN Reason: Sinus Symptoms Mineral Oil/White Petrolatum (Eucerin Cream) 0 gm TOP BIDPRN PRN PRN Reason: Dry Skin Ondansetron HCl (Zofran Odt) 4 mg PO Q6H PRN PRN Reason: Nausea/Vomiting Last Admin: 11/03/18 22:11 Dose: 4 mg Ondansetron HCl (Zofran) 4 mg IVP Q6H PRN PRN Reason: Nausea/Vomiting Last Admin: 11/03/18 18:22 Dose: 4 mg Pantoprazole Sodium (Protonix) 40 mg IVP Q12HR [facility] Last Admin: 11/03/18 20:17 Dose: 40 mg Potassium Chloride (K-Dur) 40 meq PO Q3H [facility] Stop: 11/04/18 10:01 Last Admin: 03/29/19 07:34 Dose: 40 meq Promethazine HCl (Phenergan) 12.5 mg IM/IV Q6H PRN PRN Reason: Nausea/Vomiting Last Admin: 11/03/18 02:08 Dose: 12.5 mg Senna/Docusate Sodium (Senokot S) 2 tab PO BID PRN PRN Reason: Constipation Sodium Chloride ([place] Nasal [place] 0.65%) 0 ml EA NARE QIDPRN PRN PRN Reason: Nasal Congestion Sodium Chloride (Flush - Normal Saline) 10 ml IVF Q12HR [facility] Sodium Chloride (Flush - Normal Saline) 10 ml IVF PRN PRN PRN Reason: Saline Flush Throat Lozenges (Cepastat Lozenges) 1 tyler PO Q2H PRN PRN Reason: Sore Throat
[2018-11-04 09:31] LABS: Phosphorus 1.2 mg/dL (2.3-4.7)
[2018-11-04] MEDS: Gabapentin 300 MG CAP PO SCH ×3 (09:41→20:19)
[2018-11-04] MEDS: cloNIDine 0.1 MG TAB PO SCH ×2 (09:42→20:19)
[2018-11-04] MEDS: Pantoprazole 40 MG VIAL IVP SCH ×2 (09:42→20:19)
[2018-11-04] MEDS: Lisinopril 20 MG TAB PO SCH (09:42)
[2018-11-04] MEDS ORDERED: Potassium Phosphate 30 MMOL in Sodium Chloride 0.9% 500 ML IVPB SCH (09:45)
[2018-11-04] MEDS: K-Phos Neutral 250 MG TAB PO SCH (16:11)
--- NOTE | 2018-11-04 22:40 | PRG ---
DATE OF SERVICE: 11/04/2018 REASON FOR CONSULTATION: Melena. SUBJECTIVE: The patient states that she was doing well until earlier this morning when she had a further episode of black semi-solid to liquid stools that was associated with increased weakness and shortness of breath. Further in the day, she had another episode of this darker black stool that was similar to symptoms that she experienced prior to admission. Currently, she states that she has mild shortness of breath while at rest and exertion in addition to weakness with inability to adequately ambulate without help. Otherwise, she denies any nausea, vomiting, fevers, chills, abdominal pain, hematemesis, or hematochezia. PHYSICAL EXAMINATION: VITAL SIGNS: Temperature 97.4, pulse 67, blood pressure 122/67, respiratory rate 16, saturating 100% on room air. GENERAL: The patient was lying in bed, in no acute distress, alert and oriented x4. CARDIOVASCULAR: Regular rate and rhythm. RESPIRATORY: Clear to auscultation bilaterally. ABDOMEN: Normoactive bowel sounds. Soft, nondistended. Tenderness to palpation in the midepigastric and right upper quadrant. EXTREMITIES: No cyanosis, clubbing, or edema. LABORATORY DATA: CBC with a white blood cell count of 7.8, hemoglobin 8.4, hematocrit 24.5, platelets 237. Chemistry with a sodium of 139, potassium 2.9, chloride 115, CO2 of 16, BUN 17, creatinine 0.74, glucose 110. IMAGING DATA: No current GI imaging is available for review. ASSESSMENT AND PLAN: The patient is a 63-year-old female with past medical history of diabetes, hypertension, osteoarthritis, and prior episode of gastrointestinal bleeding in August 2018, presenting with melena secondary to a bleeding gastric ulcer that was intervened on November 02, 2018. Melena: The patient initially presented with complaints of abdominal pain, nausea, and vomiting that was accompanied by vomiting of coffee-grounds emesis and possible melenic type stool. She subsequently underwent EGD on November 02, 2018, with findings of multiple gastric ulcers, but also a duodenal bulb ulcer that exhibited a visible vessel and active bleeding at the time of endoscopy. This was intervened upon with epinephrine injection and bipolar cautery with good hemostasis achieved. However, over the last 24 hours, the patient has exhibited increased weakness, shortness of breath as well as melenic type stools that have been accompanied by drop in her H and H. at this time, this is concerning for rebleeding from one of these ulcer sites. RECOMMENDATIONS: 1. Would continue to trend H and H and transfuse as necessary to maintain an H and H of 02/26. 2. Continue to monitor clinically for signs of active GI bleeding. 3. If the patient's H and H continued to decline, I would plan for an EGD tomorrow morning for repeat evaluation of the upper GI tract and intervention if active bleeding is seen at that time .. 4. Please make the patient n.p.o. at midnight in possible anticipation for that procedure. We will continue to follow. Please call with any questions. Job ID: [id number]
[2018-11-05] MEDS: NS 0.9% w/ 20 MEQ KCL 1,000 ML/1,000 ML BAG IV SCH (01:27)
[2018-11-05 06:52] LABS: Anion Gap 10 mmol/L (10-20); BUN (Urea Nitrogen) 12 mg/dL (9.8-20.1); Calc. Creatinine Clearance 84 mL/min (70-130); Carbon Dioxide 16 mmol/L (23-31); Chloride 117 mmol/L (98-107); Estimated GFR-MDRD Greater than 90; Glucose 107 mg/dL (80-115); Potassium 3.7 mmol/L (3.5-5.1); Sodium 139 mmol/L (136-145)
[2018-11-05 07:08] LABS: Phosphorus 2.3 mg/dL (2.3-4.7)
[2018-11-05] MEDS: Lisinopril 20 MG TAB PO SCH (08:01)
[2018-11-05] MEDS: cloNIDine 0.1 MG TAB PO SCH ×2 (08:01→20:46)
[2018-11-05] MEDS: Gabapentin 300 MG CAP PO SCH ×3 (08:01→20:45)
[2018-11-05] MEDS: Pantoprazole 40 MG VIAL IVP SCH ×2 (08:02→20:47)
[2018-11-05 08:39] LABS: Band 3 % (5-11); Eosinophils 3 % (0-10); Hemoglobin 8.6 g/dL (12.0-16.0); Lymphocytes 52 % (21-51); MDiff Complete? YES; Mean Corpuscular HGB CONC 33.5 g/dL (32.0-36.0); Mean Corpuscular Hemoglobin 29.8 pg (27.0-31.0); Mean Corpuscular Volume 88.9 fL (78.0-98.0); Mean Platelet Volume 8.4 fL (7.4-10.4); Monocytes 2 % (0-10); Neutrophil 40 % (42-75); Platelet Count 233 thou/uL (130-400); RBC Distribution Width 15.9 % (11.5-14.5); Red Blood Cell (RBC) Count 2.89 mill/uL (4.20-5.40); White Blood Cell (WBC) Count 7.3 thou/uL (4.8-10.8)
--- NOTE | 2018-11-05 10:33 | PDOC.PN ---
- Subjective Encounter Start Date: 11/05/18 Encounter Start Time: 09:20 Patient seen and examined. No new complaints. No overnight events - Objective Resuscitation Status - Order Detail: 11/02/18 10:04 Resuscitation Status Routine Resuscitation Status: FULL: Full Resuscitation MAR Reviewed: Yes Vital Signs & Weight: Vital Signs (12 hours) Temp Pulse Resp BP BP BP BP 11/05/18 09:54 156/78 H 11/05/18 08:01 180/81 H 11/05/18 08:00 82 180/81 H 11/05/18 07:57 79 195/65 H 11/05/18 07:33 99.8 F H 88 16 11/05/18 04:00 97.8 F 67 18 149/75 H 11/04/18 23:46 98.1 F 72 18 98/60 BP Pulse Ox 11/05/18 09:54 11/05/18 08:01 99 11/05/18 08:00 99 11/05/18 07:57 99 11/05/18 07:33 193/79 H 99 11/05/18 04:00 99 11/04/18 23:46 99 Weight Weight 127 lb I&O: 11/04/18 11/05/18 11/06/18 06:59 06:59 06:59 Intake Total 1940 950 Balance 1940 950 Result Diagrams: 11/05/18 06:09 11/05/18 06:09 Additional Labs: Accuchecks 11/05/18 11/04/18 11/04/18 05:14 20:58 16:06 POC Glucose 112 H 136 H 109 11/04/18 11:12 POC Glucose 196 H Phys Exam - Physical Examination Constitutional: NAD HEENT: PERRLA, moist MMs, sclera anicteric Neck: no JVD, supple Respiratory: no wheezing, no rales, no rhonchi Cardiovascular: RRR, no significant murmur, no rub Gastrointestinal: soft, non-tender, no distention, positive bowel sounds Musculoskeletal: no edema, pulses present Neurological: non-focal, normal sensation, moves all 4 limbs Lymphatic: no nodes Psychiatric: normal affect, A&O x 3 Skin: no rash, normal turgor Dx/Plan (1) Anemia due to acute blood loss Code(s): D62 - ACUTE POSTHEMORRHAGIC ANEMIA Status: Acute (2) Hypokalemia Code(s): E87.6 - HYPOKALEMIA Status: Acute (3) Hypomagnesemia Code(s): E83.42 - HYPOMAGNESEMIA Status: Acute (4) Upper GI bleed Code(s): K92.2 - GASTROINTESTINAL HEMORRHAGE, UNSPECIFIED Status: Acute (5) Diabetes type 2, controlled Code(s): E11.9 - TYPE 2 DIABETES MELLITUS WITHOUT COMPLICATIONS Status: Chronic (6) Dyslipidemia Code(s): E78.5 - HYPERLIPIDEMIA, UNSPECIFIED Status: Chronic (7) HTN (hypertension) Code(s): I10 - ESSENTIAL (PRIMARY) HYPERTENSION Status: Chronic Qualifiers: (8) Neuropathic pain Status: Chronic (9) PUD (peptic ulcer disease) Code(s): K27.9 - PEPTIC ULC, SITE UNSP, UNSP AC OR CHR, W/O HEMOR OR PERF Status: Chronic (10) Restless leg syndrome Status: Chronic - Plan cont current plan of care, plan discussed w/ family * stable H & H * medication reviewed as below * symptomatic treatment * overall doing well. * DC if GI OK Review of Systems - Review of Systems ENT: negative: Ear Pain, Ear Discharge, Nose Pain, Nose Discharge, Nose Congestion, Mouth Pain, Mouth Swelling, Throat Pain, Throat Swelling, Other Respiratory: negative: Cough, Dry, Shortness of Breath, Hemoptysis, SOB with Excertion, Pleuritic Pain, Sputum, Wheezing Cardiovascular: negative: chest pain, palpitations, orthopnea, paroxysmal nocturnal dyspnea, edema, light headedness, other Gastrointestinal: negative: Nausea, Vomiting, Abdominal Pain, Diarrhea, Constipation, Melena, Hematochezia, Other Genitourinary: negative: Dysuria, Frequency, Incontinence, Hematuria, Retention , Other Musculoskeletal: negative: Neck Pain, Shoulder Pain, Arm Pain, Back Pain, Hand Pain, Leg Pain, Foot Pain, Other Skin: negative: Rash, Lesions, Joe, Bruising, Other - Medications/Allergies Allergies/Adverse Reactions: Allergies Allergy/AdvReac Type Severity Reaction Status Date / Time ciprofloxacin Allergy Verified 11/02/18 15:06 Medications: Current Medications Acetaminophen (Tylenol) 650 mg PO Q4H PRN PRN Reason: Headache/Fever/Mild Pain (1-3) Last Admin: 11/04/18 01:49 Dose: 650 mg Artificial Tears (Tears Naturale) 2 drop EA EYE PRN PRN PRN Reason: Dry Eyes Benzonatate (Tessalon) 100 mg PO Q6H PRN PRN Reason: Cough Bisacodyl (Dulcolax) 10 mg PO DAILYPRN PRN PRN Reason: Constipation Clonidine (Catapres) 0.1 mg PO BID [facility] Last Admin: 11/05/18 08:01 Dose: 0.1 mg Dextrose/Water (Dextrose 50%) 25 gm SLOW IVP PRN PRN PRN Reason: Hypoglycemia Gabapentin (Neurontin) 300 mg PO TID [facility] Last Admin: 11/05/18 08:01 Dose: 300 mg Glucagon (Glucagon) 1 mg IM PRN PRN PRN Reason: Hypoglycemia Guaifenesin (Robitussin Sf) 200 mg PO Q4H PRN PRN Reason: Cough Hydralazine HCl (Apresoline) 10 mg SLOW IVP Q4H PRN PRN Reason: SBP > 180 and HR < 70 Dextrose/Water (D5w) 1,000 mls @ 0 mls/hr IV .Q0M PRN PRN Reason: Hypoglycemia Insulin Human Lispro (Humalog) 0 units SC .MODERATE SLIDING SC PRN PRN Reason: Moderate Correctional Scale Labetalol HCl (Normodyne) 10 mg SLOW IVP Q4H PRN PRN Reason: SBP > 170, DBP > 100 Last Admin: 11/03/18 01:58 Dose: 10 mg Lisinopril (Zestril) 20 mg PO DAILY [facility] Last Admin: 11/05/18 08:01 Dose: 20 mg Loperamide HCl (Imodium) 2 mg PO PRN PRN PRN Reason: Diarrhea/Loose Stools Loratadine (Claritin) 10 mg PO DAILYPRN PRN PRN Reason: Sinus Symptoms Mineral Oil/White Petrolatum (Eucerin Cream) 0 gm TOP BIDPRN PRN PRN Reason: Dry Skin Ondansetron HCl (Zofran Odt) 4 mg PO Q6H PRN PRN Reason: Nausea/Vomiting Last Admin: 11/03/18 22:11 Dose: 4 mg Ondansetron HCl (Zofran) 4 mg IVP Q6H PRN PRN Reason: Nausea/Vomiting Last Admin: 11/03/18 18:22 Dose: 4 mg Pantoprazole Sodium (Protonix) 40 mg IVP Q12HR [facility] Last Admin: 11/05/18 08:02 Dose: 40 mg Phosphorus (Kphos Neutral) 500 mg PO BID[facility] Last Admin: 11/04/18 16:11 Dose: 500 mg Promethazine HCl (Phenergan) 12.5 mg IM/IV Q6H PRN PRN Reason: Nausea/Vomiting Last Admin: 11/03/18 02:08 Dose: 12.5 mg Senna/Docusate Sodium (Senokot S) 2 tab PO BID PRN PRN Reason: Constipation Sodium Chloride ([place] Nasal [place] 0.65%) 0 ml EA NARE QIDPRN PRN PRN Reason: Nasal Congestion Sodium Chloride (Flush - Normal Saline) 10 ml IVF Q12HR [facility] Last Admin: 11/05/18 07:44 Dose: Not Given Sodium Chloride (Flush - Normal Saline) 10 ml IVF PRN PRN PRN Reason: Saline Flush Throat Lozenges (Cepastat Lozenges) 1 tyler PO Q2H PRN PRN Reason: Sore Throat
--- NOTE | 2018-11-05 11:03 | DIS ---
DATE OF ADMISSION: 11/02/2018 DATE OF DISCHARGE: 11/05/2018 PRIMARY CARE PHYSICIAN: [facility] Call admission. DISCHARGE DISPOSITION: Home. PRIMARY DISCHARGE DIAGNOSES: 1. Acute upper gastrointestinal bleed. 2. Anemia due to acute blood loss. 3. Hypokalemia. 4. Hypomagnesemia. 5. Hypophosphatemia. SECONDARY DISCHARGE DIAGNOSES: Restless legs syndrome, peptic ulcer disease, neuropathic pain, hypertension, diabetes type 2. PRIMARY PROCEDURE/OPERATION: Upper endoscopy was performed by Dr. Harper and the patient was found with small gastric ulcer, pyloric channel ulcer, large ulcer in duodenal bulb. SIGNIFICANT LABORATORY DATA: WBC 7.3, hemoglobin 8.6, platelet 233. INR 1.2. Sodium 139, potassium 3.7, BUN 12, creatinine 0.62, calcium 8.0. Urinalysis normal. Stool for guaiac positive. DISCHARGE MEDICATIONS: 1. ProAir HFA one or two puffs q.6 hourly p.r.n. 2. Buprenorphine one film b.i.d. 3. Lisinopril 20 mg daily. 4. Potassium chloride 20 mEq p.o. daily. 5. Clonidine 0.1 mg b.i.d. 6. Gabapentin 300 mg p.o. t.i.d. 7. Metformin 500 mg p.o. b.i.d. 8. Zofran 4 mg q.6 hourly p.r.n. 9. Protonix 40 mg b.i.d. 10. Tramadol 50 mg b.i.d. p.r.n. CONTRAINDICATION: None. CODE STATUS: Full code. INPATIENT SUPERVISOR GLUING: Dr. Harper was following while in hospital. TEST RESULT PENDING ON DISCHARGE: None. ALLERGIES: CIPROFLOXACIN. DISCHARGE PLAN: Posthospital, the patient will follow up with Dr. Harper as instructed and primary care physician as instructed. HOSPITAL COURSE: A 63-year-old female, who was admitted by Dr. Harp, please see his H and P for further details. On admission, the patient was having nausea, vomiting, epigastric pain, and upper GI bleed. She also had black tarry stool. The patient was found with hemoglobin 9.1 on admission. Her hemoglobin remained stable. She required total 2 units of blood transfusion while in hospital. While in hospital, we also noted that her electrolytes were abnormal that was replaced while in hospital. We have provided the patient education to avoid NSAID. The patient's hemoglobin remained stable for last couple of days and if GI is okay, then we will consider discharging her home later on today. The patient will continue Protonix therapy. The patient is seen and examined at bedside today. Please see my progress note from today for further detail. Job ID: [id number]
[2018-11-05] MEDS: K-Phos Neutral 250 MG TAB PO SCH ×2 (11:14→16:49)
--- NOTE | 2018-11-05 14:26 | PRG ---
DATE OF SERVICE: 11/05/2018 REASON FOR CONSULTATION: Melena. SUBJECTIVE: The patient states that she is feeling much better today than she did previously with no further episodes of diarrhea or black colored stools. Currently, she denies any nausea, vomiting, fevers, chills, abdominal pain, or GI bleeding. PHYSICAL EXAMINATION: VITAL SIGNS: Temperature 98.3, pulse 74, blood pressure 165/85, respiratory rate 18, saturating 100% on room air. LABORATORY DATA: CBC with a white blood cell count of 7.3, hemoglobin 8.6, hematocrit 25.7, platelets 233. Chemistry with a sodium of 139, potassium 3.7, chloride 117, CO2 of 16, BUN 12, creatinine 0.62, glucose 107. IMAGING DATA: No current GI imaging is available for review. ASSESSMENT AND PLAN: The patient is a 63-year-old female with past medical history of diabetes, hypertension, osteoarthritis with prior episode of gastrointestinal bleeding in August 2018, presenting with melena secondary to a bleeding duodenal ulcer. Melena/duodenal ulceration. The patient initially presented with complaints of abdominal pain, nausea, vomiting, that was accompanied by coffee-ground emesis and a melenic type stool. She subsequently underwent EGD on November 02, 2018, with findings of multiple gastric ulcers, but a duodenal bulb ulcer showing high-risk stigmata including a visible vessel. This was intervened upon with epinephrine injection and bipolar cautery with good hemostasis achieved. However, approximately 48 hours after intervention, she experienced a liquid black stool as well as an acute drop in her H and H concerning for rebleeding from this lesion. However, over the last 24 hours, she has not had any further episodes of melena, and her H and H has stabilized at this new value. RECOMMENDATIONS: 1. We would continue to trend H and H and transfuse as necessary to maintain an H and H of 7/21. 2. Continue to monitor clinically for signs of active GI bleeding. 3. Given the recent episode of what appeared to be melena yesterday and an acute drop in her H and H, I am still concerned that there may be some active bleeding going on. I would hold the patient inpatient until tomorrow, and if H and H are stable, no further episodes of bleeding, I could consider discharge at that time. We will continue to follow. Please call with any questions. Job ID: [id number]
[2018-11-06] MEDS: Acetaminophen 325 MG TAB PO PRN (01:41)
[2018-11-06 08:08] LABS: Hemoglobin 9.6 g/dL (12.0-16.0)
[2018-11-06] MEDS: cloNIDine 0.1 MG TAB PO SCH (08:21)
[2018-11-06] MEDS: K-Phos Neutral 250 MG TAB PO SCH (08:22)
[2018-11-06] MEDS: Lisinopril 20 MG TAB PO SCH (08:22)
[2018-11-06] MEDS: Gabapentin 300 MG CAP PO SCH (08:22)
[2018-11-06] MEDS: Pantoprazole 40 MG VIAL IVP SCH (08:23)
[2018-11-06 10:20] VITALS: BP 133/71; TEMP 98.1
--- NOTE | 2018-11-06 10:51 | PDOC.PN ---
- Subjective Encounter Start Date: 11/06/18 Encounter Start Time: 08:10 Patient seen and examined. No new complaints. No overnight events - Objective Resuscitation Status - Order Detail: 11/02/18 10:04 Resuscitation Status Routine Resuscitation Status: FULL: Full Resuscitation MAR Reviewed: Yes Vital Signs & Weight: Vital Signs (12 hours) Temp Pulse Resp BP BP BP BP 11/06/18 10:19 98.1 F 75 16 133/71 11/06/18 08:22 170/79 H 11/06/18 08:21 170/79 H 11/06/18 08:01 98.4 F 71 18 180/83 H 191/84 H 11/06/18 08:00 11/06/18 07:54 98.4 F 71 18 180/83 H 11/06/18 04:00 98.1 F 75 18 153/73 H 11/05/18 23:55 98.7 F 70 18 153/74 H BP Pulse Ox 11/06/18 10:19 100 11/06/18 08:22 11/06/18 08:21 11/06/18 08:01 170/79 H 99 11/06/18 08:00 99 11/06/18 07:54 99 11/06/18 04:00 99 11/05/18 23:55 99 Weight Weight 127 lb I&O: 11/05/18 11/06/18 11/07/18 06:59 06:59 06:59 Intake Total 950 Balance 950 Result Diagrams: 11/06/18 08:03 11/05/18 06:09 Additional Labs: Accuchecks 11/06/18 11/05/18 11/05/18 05:24 20:09 16:50 POC Glucose 132 H 118 H 109 11/05/18 11:29 POC Glucose 205 H Phys Exam - Physical Examination Constitutional: NAD HEENT: PERRLA, moist MMs, sclera anicteric Neck: no JVD, supple Respiratory: no wheezing, no rales, no rhonchi Cardiovascular: RRR, no significant murmur, no rub Gastrointestinal: soft, non-tender, no distention, positive bowel sounds Musculoskeletal: no edema, pulses present Neurological: non-focal, normal sensation, moves all 4 limbs Lymphatic: no nodes Psychiatric: normal affect, A&O x 3 Skin: no rash, normal turgor Dx/Plan (1) Anemia due to acute blood loss Code(s): D62 - ACUTE POSTHEMORRHAGIC ANEMIA Status: Acute (2) Hypokalemia Code(s): E87.6 - HYPOKALEMIA Status: Acute (3) Hypomagnesemia Code(s): E83.42 - HYPOMAGNESEMIA Status: Acute (4) Upper GI bleed Code(s): K92.2 - GASTROINTESTINAL HEMORRHAGE, UNSPECIFIED Status: Acute (5) Diabetes type 2, controlled Code(s): E11.9 - TYPE 2 DIABETES MELLITUS WITHOUT COMPLICATIONS Status: Chronic (6) Dyslipidemia Code(s): E78.5 - HYPERLIPIDEMIA, UNSPECIFIED Status: Chronic (7) HTN (hypertension) Code(s): I10 - ESSENTIAL (PRIMARY) HYPERTENSION Status: Chronic Qualifiers: (8) Neuropathic pain Status: Chronic (9) PUD (peptic ulcer disease) Code(s): K27.9 - PEPTIC ULC, SITE UNSP, UNSP AC OR CHR, W/O HEMOR OR PERF Status: Chronic (10) Restless leg syndrome Status: Chronic - Plan cont current plan of care * medication reviewed as below * symptomatic treatment * see discharge [place]. Review of Systems - Review of Systems ENT: negative: Ear Pain, Ear Discharge, Nose Pain, Nose Discharge, Nose Congestion, Mouth Pain, Mouth Swelling, Throat Pain, Throat Swelling, Other Respiratory: negative: Cough, Dry, Shortness of Breath, Hemoptysis, SOB with Excertion, Pleuritic Pain, Sputum, Wheezing Cardiovascular: negative: chest pain, palpitations, orthopnea, paroxysmal nocturnal dyspnea, edema, light headedness, other Gastrointestinal: negative: Nausea, Vomiting, Abdominal Pain, Diarrhea, Constipation, Melena, Hematochezia, Other Genitourinary: negative: Dysuria, Frequency, Incontinence, Hematuria, Retention , Other Musculoskeletal: negative: Neck Pain, Shoulder Pain, Arm Pain, Back Pain, Hand Pain, Leg Pain, Foot Pain, Other - Medications/Allergies Allergies/Adverse Reactions: Allergies Allergy/AdvReac Type Severity Reaction Status Date / Time ciprofloxacin Allergy Verified 11/02/18 15:06 Medications: Current Medications Acetaminophen (Tylenol) 650 mg PO Q4H PRN PRN Reason: Headache/Fever/Mild Pain (1-3) Last Admin: 11/06/18 01:41 Dose: 650 mg Artificial Tears (Tears Naturale) 2 drop EA EYE PRN PRN PRN Reason: Dry Eyes Benzonatate (Tessalon) 100 mg PO Q6H PRN PRN Reason: Cough Bisacodyl (Dulcolax) 10 mg PO DAILYPRN PRN PRN Reason: Constipation Clonidine (Catapres) 0.1 mg PO BID [facility] Last Admin: 11/06/18 08:21 Dose: 0.1 mg Dextrose/Water (Dextrose 50%) 25 gm SLOW IVP PRN PRN PRN Reason: Hypoglycemia Gabapentin (Neurontin) 300 mg PO TID [facility] Last Admin: 11/06/18 08:22 Dose: 300 mg Glucagon (Glucagon) 1 mg IM PRN PRN PRN Reason: Hypoglycemia Guaifenesin (Robitussin Sf) 200 mg PO Q4H PRN PRN Reason: Cough Hydralazine HCl (Apresoline) 10 mg SLOW IVP Q4H PRN PRN Reason: SBP > 180 and HR < 70 Dextrose/Water (D5w) 1,000 mls @ 0 mls/hr IV .Q0M PRN PRN Reason: Hypoglycemia Insulin Human Lispro (Humalog) 0 units SC .MODERATE SLIDING SC PRN PRN Reason: Moderate Correctional Scale Last Admin: 11/05/18 11:52 Dose: 4 unit Labetalol HCl (Normodyne) 10 mg SLOW IVP Q4H PRN PRN Reason: SBP > 170, DBP > 100 Last Admin: 11/03/18 01:58 Dose: 10 mg Lisinopril (Zestril) 20 mg PO DAILY [facility] Last Admin: 11/06/18 08:22 Dose: 20 mg Loperamide HCl (Imodium) 2 mg PO PRN PRN PRN Reason: Diarrhea/Loose Stools Loratadine (Claritin) 10 mg PO DAILYPRN PRN PRN Reason: Sinus Symptoms Mineral Oil/White Petrolatum (Eucerin Cream) 0 gm TOP BIDPRN PRN PRN Reason: Dry Skin Ondansetron HCl (Zofran Odt) 4 mg PO Q6H PRN PRN Reason: Nausea/Vomiting Last Admin: 11/03/18 22:11 Dose: 4 mg Ondansetron HCl (Zofran) 4 mg IVP Q6H PRN PRN Reason: Nausea/Vomiting Last Admin: 11/03/18 18:22 Dose: 4 mg Pantoprazole Sodium (Protonix) 40 mg IVP Q12HR [facility] Last Admin: 11/06/18 08:23 Dose: 40 mg Phosphorus (Kphos Neutral) 500 mg PO BID[facility] Last Admin: 11/06/18 08:22 Dose: 500 mg Promethazine HCl (Phenergan) 12.5 mg IM/IV Q6H PRN PRN Reason: Nausea/Vomiting Last Admin: 11/03/18 02:08 Dose: 12.5 mg Senna/Docusate Sodium (Senokot S) 2 tab PO BID PRN PRN Reason: Constipation Sodium Chloride ([place] Nasal [place] 0.65%) 0 ml EA NARE QIDPRN PRN PRN Reason: Nasal Congestion Sodium Chloride (Flush - Normal Saline) 10 ml IVF Q12HR [facility] Last Admin: 11/06/18 08:23 Dose: 10 ml Sodium Chloride (Flush - Normal Saline) 10 ml IVF PRN PRN PRN Reason: Saline Flush Throat Lozenges (Cepastat Lozenges) 1 tyler PO Q2H PRN PRN Reason: Sore Throat
--- NOTE | 2018-11-07 07:07 | DIS ---
DATE OF ADMISSION: 11/02/2018 DATE OF DISCHARGE: 11/06/2018 Please see my discharge summary dictated yesterday for more details. The patient was observed while in hospital overnight for H and H. Her H and H, stable. She is completely asymptomatic. On discharge, we added ferrous sulfate 325 mg p.o. daily. She will continue Protonix 40 mg b.i.d. The patient education is given. The patient is seen and examined at bedside today. Please see my progress note from today for further detail. Job ID: [id number]
== END 2018-11-06 11:03 | disposition home or self-care (01) | DRG 378 ==
LOC: ERS 08:21 → OBSVTOIN 10:24 → MERGE 10:24 → ERHOLD 10:24 → T4-B 14:06
PROVIDERS: ADMIT Internal Medicine; ATTEND Internal Medicine
PROC: 0DB68ZX Excision of Stomach, Via Natural or Artificial Opening Endoscopic, Diagnostic (ICD-10-PCS; principal; 2018-11-02)
PROC: 3E0G8GC Introduction of Other Therapeutic Substance into Upper GI, Via Natural or Artificial Opening Endoscopic (ICD-10-PCS; 2018-11-02)
DX: K92.2 Gastrointestinal hemorrhage, unspecified (principal); D62 Acute posthemorrhagic anemia; E87.2 Acidosis; E11.65 Type 2 diabetes mellitus with hyperglycemia; I10 Essential (primary) hypertension; E87.6 Hypokalemia; M19.90 Unspecified osteoarthritis, unspecified site; K25.9 Gastric ulcer, unspecified as acute or chronic, without hemorrhage or perforation; E78.5 Hyperlipidemia, unspecified; G25.81 Restless legs syndrome; E83.42 Hypomagnesemia; K27.9 Peptic ulcer, site unspecified, unspecified as acute or chronic, without hemorrhage or perforation
CPT/HCPCS: 36415; 36416; 36430; 71045; 80048; 80053; 81003; 82274; 82728; 83540; 83550; 83690; 83735; 84100; 85014; 85018; 85025; 85046; 85610; 85730; 86850; 86900; 86901; 88305; 88312; 88342; 96361; 96365; 96366; 96375; C9113; J2001; J2270; J2405; J2550; J2704; J3010; J3475; J3480; J3490; J7050; P9016; Q0162

== ENCOUNTER 2018-11-22 09:52 | Inpatient (IN) | payer SELFPAY ==
[2018-11-22] MEDS ORDERED: Ondansetron PF 4 MG/2 ML Vial ONE ×2 (09:59→17:24)
[2018-11-22 10:39] LABS: INR-International Normal Ratio 1.1
[2018-11-22 10:42] LABS: #Lymphocytes 1.4 thou/uL (1.20-3.40); #Monocytes 0.6 thou/uL (0.11-0.59); #Neutrophils 9.4 thou/uL (1.40-6.50); %Basophils 0.4 % (0.0-1.0); %Eosinophils 0.2 % (0.0-10.0); %Monocytes 5.4 % (0.0-10.0); %Neutrophils 82.1 % (42.0-75.0); Hemoglobin 4.5 g/dL (12.0-16.0); Mean Corpuscular HGB CONC 32.7 g/dL (32.0-36.0); Mean Corpuscular Hemoglobin 27.2 pg (27.0-31.0); Mean Corpuscular Volume 83.2 fL (78.0-98.0); Mean Platelet Volume 7.3 fL (7.4-10.4); Platelet Count 500 thou/uL (130-400); RBC Distribution Width 16.4 % (11.5-14.5); Red Blood Cell (RBC) Count 1.66 mill/uL (4.20-5.40); Reflex for Review?? NO; White Blood Cell (WBC) Count 11.5 thou/uL (4.8-10.8)
[2018-11-22 10:54] LABS: ALT (SGPT) 9 U/L (8-55); AST (SGOT) 11 U/L (5-34); Albumin 3.8 g/dL (3.4-4.8); Alkaline Phosphatase 55 U/L (40-150); Anion Gap 14 mmol/L (10-20); BUN (Urea Nitrogen) 35 mg/dL (9.8-20.1); Bilirubin, Total Less than 0.2 mg/dL (0.2-1.2); Calc. Creatinine Clearance 0 mL/min (70-130); Calcium 8.8 mg/dL (7.8-10.44); Carbon Dioxide 20 mmol/L (23-31); Chloride 106 mmol/L (98-107); Estimated GFR-MDRD 68; Globulin 2.2 g/dL (2.4-3.5); Glucose 147 mg/dL (80-115); Magnesium 1.6 mg/dL (1.6-2.6); Potassium 3.4 mmol/L (3.5-5.1); Sodium 137 mmol/L (136-145)
--- NOTE | 2018-11-22 11:03 | RAD ---
SINGLE VIEW CHEST: HISTORY: Shortness of breath and blood in stool. COMPARISON: 11/02/2018 FINDINGS: Single view of the chest show normal sized cardiomediastinal silhouette. There is no evidence of cons olidation, mass, or pleural effusion. The bones are unremarkable. IMPRESSION: No evidence of acute cardiopulmonary disease. POS: [facility]
[2018-11-22] MEDS ORDERED: Pantoprazole 40 MG VIAL ONE (11:09)
[2018-11-22] MEDS ORDERED: Ondansetron ODT 4 MG TAB PO PRN (11:45)
[2018-11-22] MEDS ORDERED: Dextrose 50% Abboject 50 ML SYRINGE SLOW IVP PRN (11:45)
[2018-11-22] MEDS ORDERED: Pantoprazole 80 MG in Sodium Chloride 0.9% 100 ML IVPB SCH (11:45)
[2018-11-22] MEDS ORDERED: Acetaminophen 325 MG TAB PO PRN (11:45)
[2018-11-22] MEDS ORDERED: Dextrose 5% in Water 1,000 ML IV PRN (11:45)
[2018-11-22] MEDS ORDERED: HumaLOG 300 UNITS/3 ML VIAL SC PRN (11:45)
[2018-11-22 11:54] LABS: Hypochromia SLIGHT = 6-15 cells (100X) (0-5/hpf); Polychromasia MODERATE = 3-4 cells (100X) (0-2/hpf)
--- NOTE | 2018-11-22 12:28 | HP ---
PRIMARY CARE PROVIDER: Adrienne. [facility]. HISTORY OF PRESENT ILLNESS: This is the third admission in a brief period of time for this lady. The last time she was admitted, she had not been taking her Protonix given at discharge for gastric ulcer. Today, she comes in with bloody stools for 3 days, dark, sometimes black. She had no abdominal pain. She had nausea, vomiting yesterday with coffee and ground emesis. She is profoundly weak, dizzy arising like she is going to faint, short of breath with exertion. PAST MEDICAL HISTORY: GI bleeding x3 in a short period of time, diabetes mellitus type 2, hypertension, and osteoarthritis. She did not bring her medicines with her, but they told me she was taking the medicine for ulcers. MEDICATIONS: When she was last discharged, her medicines included; 1. Protonix 40 mg twice a day. 2. Zofran 4 mg q.6 hours p.r.n. 3. Metformin 500 mg twice a day. 4. Gabapentin 300 mg 3 times a day. 5. Clonidine 0.1 mg twice a day. 6. Potassium chloride 20 mEq a day. 7. Lisinopril 20 mg a day. 8. Buprenorphine b.i.d. 9. ProAir HFA one or two puffs q.6 hours p.r.n. ALLERGIES: TO CIPROFLOXACIN. PAST SURGICAL HISTORY: Cholecystectomy, hysterectomy, and endoscopy x2 this year. FAMILY HISTORY: Negative for inheritable diseases, diabetes, hypertension, and coronary artery disease. SOCIAL HISTORY: Full code status. Daughter, next of kin at bedside. No alcohol. No tobacco. I asked her about Advil, etc., she denied it. REVIEW OF SYSTEMS: GENERAL: Feels very weak. Feels like she is going to faint when she gets up. She has blurred vision. She relates to her diabetes. EYES: No double vision or flashing of lights. EAR, NOSE, AND THROAT: No ear pain or drainage. No nasal bleeding. No trouble swallowing. CARDIAC: No chest pain, orthopnea, or paroxysmal nocturnal dyspnea. RESPIRATION: Dyspnea on exertion. No wheezing, asthma, or cough. GASTROINTESTINAL: See present illness. GENITOURINARY: No hematuria or dysuria. MUSCULOSKELETAL: She has occasional pain in her legs, poorly described. No swelling. PSYCHIATRIC: No history of anxiety or depression. NEUROLOGICAL: No strokes, seizures, or focal weakness. SKIN: No bruising, bleeding, or rash. HEME/LYMPH: No tender or swollen lymph nodes in axilla, inguinal, and cervical area. PHYSICAL EXAMINATION: VITAL SIGNS: Blood pressure 131/50, pulse 94, respirations 16, and temperature 99.1. HEAD, EYES, EARS, NOSE, AND THROAT: Revealed pupils are equal, round, and reactive to light. Extraocular movements are intact. Sclerae are white. Tympanic membranes are clear. Nose is clear. Oral mucous membranes are wet. Mucous membranes are decidedly pale. NECK: No jugular venous distention, adenopathy, or thyromegaly. CHEST: Clear to auscultation and percussion. HEART: Had a regular rate and rhythm. First and second heart sounds are clear. There are no appreciated murmurs or gallops. ABDOMEN: Soft. Bowel sounds are normal. There is no hepatosplenomegaly. No masses. No rebound. No bruits. EXTREMITIES: Reveal no cyanosis, clubbing, or edema. PULSES: Carotid, radial, femoral, and dorsalis pedis pulses are intact. SKIN: Warm and dry without bruises or rash. HEME/LYMPH: No tender or swollen lymph nodes in axilla, inguinal, or cervical area. NEUROLOGICAL: Cranial nerves II through XII are intact. Deep tendon reflexes are diminished bilaterally. IMAGING DATA: Chest x-ray, no cardiomegaly, CHF, infiltrate. Reviewed by me, EKG has been sought. If the one is not available, we will order one and review it. LABORATORY DATA: Hemoglobin 4.5, white count 11.5, and platelet count 500,000. INR 1.1. Comprehensive metabolic profile; potassium 3.4, CO2 of 20, BUN 35, glucose 147, otherwise unremarkable. ADMITTING DIAGNOSES: 1. Recurrent gastrointestinal bleeding. 2. Severe anemia secondary to acute blood loss. 3. History of peptic ulcer disease. 4. Diabetes mellitus, type 2. 5. Hypertension. 6. Osteoarthritis. PLAN: I have written orders to admit to [facility] to give 2 units of blood as fast as possible. IV fluids with normal saline or included I have not given her a large bolus as her blood pressure is stable and she is not tachycardic. I have requested a stat H and H after 2 units of blood. Ordered Protonix 40 mg IV twice a day. Accu-Cheks with sliding scale. We will hold p.o. medicines. I have requested a consultation with GI. She will require frequent observation. Job ID: [id number]
[2018-11-22] MEDS ORDERED: PROPOFOL 200 MG/20 ML VIAL ONE (13:38)
[2018-11-22] MEDS ORDERED: Esmolol 100 MG/10 ML VIAL ONE (13:38)
[2018-11-22] MEDS ORDERED: Lidocaine 1% PF 5 ML VIAL ONE (13:38)
[2018-11-22] MEDS ORDERED: EPINEPHrine 1 MG/10 ML Abboject SYRINGE ONE (13:38)
[2018-11-22] MEDS ORDERED: Fentanyl 100 MCG/2 ML VIAL ONE (15:46)
[2018-11-22] MEDS ORDERED: Promethazine HCl 25 MG/ML VIAL SLOW IVP PRN (16:29)
[2018-11-22] MEDS ORDERED: Promethazine HCl 25 MG/ML VIAL IM PRN (16:29)
[2018-11-22] MEDS ORDERED: HYDROmorphone 2 MG/ML VIAL SLOW IVP PRN (16:29)
[2018-11-22] MEDS ORDERED: Ondansetron HCl/PF 4 MG/2 ML Vial IVP PRN (16:29)
[2018-11-22] MEDS ORDERED: Morphine Sulfate 2 MG/ML SYRINGE SLOW IVP PRN (16:29)
[2018-11-22] MEDS ORDERED: PACU-Morphine 4MG/ML VIAL SLOW IVP PRN (16:29)
[2018-11-22] MEDS ORDERED: Labetalol HCl 100 MG/20 ML VIAL ONE (17:23)
--- NOTE | 2018-11-22 17:57 | CON ---
DATE OF CONSULTATION: 11/22/2018 REASON FOR CONSULTATION: Melena and history of prior duodenal ulcer. CONSULTING PHYSICIAN: Dr. Hamilton. HISTORY OF PRESENT ILLNESS: The patient is a 63-year-old female with past medical history of diabetes, hypertension, osteoarthritis, and more recently diagnosed with gastric ulcerations and a bleeding duodenal ulceration in October 2018, presenting with complaints of melena. Shortly after, she was discharged from the hospital approximately 2 to 3 weeks ago, she states that she was continued to have intermittent episodes of dark black colored stools that would happen approximately 1 to 2 times per week with her stools consisting of more semi-solid to liquid black bowel movements. She also endorse increased fatigue, increased somnolence, as well as increased weakness and mild dyspnea on exertion. With this repeat episodes of melena and weakness, she also did have 1 episode of hematemesis x1, which she had difficulty characterizing, but sounds as if it was more coffee-ground in nature. Over the last week with the increasing frequency of these darker black stools, it prompted her to seek readmission for evaluation. Of note, during this entire time, as an outpatient, she had been taking her PPI daily and had been avoiding NSAIDs. Upon evaluation in the [facility] ER, she was noted to have a significantly decreased H and H and thus she was admitted to the hospital for further evaluation. In addition to the above symptoms, she also endorsed increased mild confusion, but no complete loss of sensorium. Currently, she denies any vomiting, fevers, chills, abdominal pain, and hematochezia. REVIEW OF SYSTEMS: A 10-category review of systems was obtained with all responses negative except for the pertinent positives as listed in HPI. PAST MEDICAL HISTORY: As per HPI. PAST SURGICAL HISTORY: Cholecystectomy, hysterectomy, and endoscopy x2 this year. FAMILY HISTORY: Denies any GI malignancies. SOCIAL HISTORY: Denies any tobacco, alcohol, or illicit drug use OUTPATIENT MEDICATIONS: Reviewed. ALLERGIES: CIPROFLOXACIN. PHYSICAL EXAMINATION: VITAL SIGNS: Temperature 99.5, pulse 94, blood pressure 131/50, respiratory rate 16, and saturating 98% on room air. GENERAL: The patient is lying in bed, in no acute distress. Alert and oriented x4. NECK: Supple. No JVD noted. CARDIOVASCULAR: Regular rate and rhythm. 3/6 systolic murmur best heard at the left lower sternal border. No discernible gallops or rubs. RESPIRATORY: Clear to auscultation bilaterally with no discernible wheezes or rales. ABDOMEN: Normoactive bowel sounds. Soft and nondistended. Tenderness to palpation in the midepigastric right upper quadrant and periumbilical regions. EXTREMITIES: No cyanosis, clubbing, or edema. LABORATORY DATA: CBC with a white blood cell count of 11.5, hemoglobin 4.5, hematocrit 13.8, and platelets 500. INR 1.1. Chemistry with a sodium of 137, potassium 3.4, chloride 106, CO2 of 20, BUN 35, creatinine 0.84, glucose 147, AST 11, ALT 9, alkaline phosphatase 55, and total bilirubin 0.2. IMAGING DATA: Chest x-ray obtained on November 22, 2018, showed no evidence of acute cardiopulmonary disease. EGD obtained on November 02, 2018, showed no blood seen within the stomach. But, the patient did have a gastric ulcer over the gastric antrum, which was nonbleeding as well as another ulcer within the pyloric channel with no active bleeding seen at that site as well as. Within the apex of the duodenal bulb, she was found to have an ulceration with a visible vessel oozing blood, which was then intervened upon with injection of submucosal epinephrine as well as bipolar cautery with good hemostasis achieved at the end of the procedure. ASSESSMENT AND PLAN: The patient is a 63-year-old female with past medical history of diabetes, hypertension, osteoarthritis, and recent diagnoses of gastric ulcerations and duodenal ulcerations with active bleeding from the duodenal ulcer, presenting with probable upper gastrointestinal bleed. Upper gastrointestinal bleeding. The patient is presenting with a recent history of multiple gastric ulcers as well as a visibly bleeding vessel within the duodenal bulb on November 02, 2018. Shortly after discharge from her prior admission, she continued to have melenic type stools as well as increased fatigue, somnolence, and weakness, again concerning for continued gastrointestinal bleeding. Upon evaluation in the ER today, she was noted to have a significantly decreased H and H, which when coupled with the above symptoms, again is highly suspicious for an upper gastrointestinal bleed with a duodenal ulceration being a more likely etiology. At this time the differential could include rebleeding of the duodenal ulceration, increased bleeding from either the gastric ulcerations, arteriovenous malformation, or Dieulafoy lesion. RECOMMENDATIONS: 1. Would continue to trend H and H and transfuse as necessary to maintain an H and H of 02/26. 2. Continue to monitor clinically for signs of GI bleeding. 3. Would continue the patient on PPI drip given the higher likelihood of an upper GI bleed. 4. Would keep the patient n.p.o. in anticipation for EGD later on today with further recommendations to follow EGD. We will continue to follow. Please call with any questions. Job ID: [id number]
[2018-11-22] MEDS: Sodium Chloride 0.9% 1,000 ML IV SCH (17:59)
[2018-11-22 18:10] LABS: Hemoglobin 7.5 g/dL (12.0-16.0); Mean Corpuscular HGB CONC 31.5 g/dL (32.0-36.0); Mean Corpuscular Hemoglobin 27.5 pg (27.0-31.0); Mean Corpuscular Volume 87.3 fL (78.0-98.0); Mean Platelet Volume 7.2 fL (7.4-10.4); Platelet Count 366 thou/uL (130-400); RBC Distribution Width 14.6 % (11.5-14.5); Red Blood Cell (RBC) Count 2.72 mill/uL (4.20-5.40); White Blood Cell (WBC) Count 19.2 thou/uL (4.8-10.8)
[2018-11-22 18:52] LABS: #Eosinphils 0.1 thou/uL (0.0-0.7); #Lymphocytes 1.6 thou/uL (1.20-3.40); #Monocytes 1.1 thou/uL (0.11-0.59); #Neutrophils 16.5 thou/uL (1.40-6.50); %Basophils 0.2 % (0.0-1.0); %Eosinophils 0.4 % (0.0-10.0); %Lymphocytes 8.4 % (21.0-51.0); %Monocytes 5.5 % (0.0-10.0); %Neutrophils 85.6 % (42.0-75.0); Anisocytosis SLIGHT = 6-15 cells (100X) (0-5/hpf); MDiff Complete? YES; Platelet Morphology Comment Appears Adequate; Polychromasia SLIGHT = 2-3 cells (100X) (0-2/hpf)
[2018-11-22] MEDS ORDERED: traMADol HCl 50 MG TAB PO PRN (19:13)
[2018-11-22] MEDS ORDERED: PROVENTIL INHALER 6.7 G (200 INHALATIONS) INH PRN (19:14)
[2018-11-22] MEDS: Pantoprazole 40 MG VIAL IVP SCH (19:32)
[2018-11-22] MEDS: Gabapentin 300 MG CAP PO SCH (19:33)
[2018-11-22] MEDS ORDERED: BUPRENORPHINE 300 MCG FS SCH (21:00)
[2018-11-22] MEDS ORDERED: cloNIDine 0.1 MG TAB PO SCH (21:00)
[2018-11-22] MEDS ORDERED: Morphine 4 MG/ML VIAL SLOW IVP SCH (21:15)
[2018-11-22 21:20] LABS: #Basophils 0.1 thou/uL (0.0-0.2); #Lymphocytes 2.3 thou/uL (1.20-3.40); #Neutrophils 14.2 thou/uL (1.40-6.50); %Basophils 0.3 % (0.0-1.0); %Eosinophils 0.3 % (0.0-10.0); %Lymphocytes 13.3 % (21.0-51.0); %Monocytes 5.8 % (0.0-10.0); %Neutrophils 80.4 % (42.0-75.0); Hemoglobin 7.4 g/dL (12.0-16.0); Mean Corpuscular HGB CONC 33.1 g/dL (32.0-36.0); Mean Corpuscular Hemoglobin 28.1 pg (27.0-31.0); Mean Corpuscular Volume 84.9 fL (78.0-98.0); Mean Platelet Volume 7.3 fL (7.4-10.4); Platelet Count 383 thou/uL (130-400); RBC Distribution Width 14.3 % (11.5-14.5); Red Blood Cell (RBC) Count 2.65 mill/uL (4.20-5.40); White Blood Cell (WBC) Count 17.7 thou/uL (4.8-10.8)
--- NOTE | 2018-11-22 23:15 | OP ---
DATE OF PROCEDURE: 11/22/2018 PROCEDURE: EGD with control of hemorrhage. INDICATION FOR PROCEDURE: Melena, symptomatic anemia, history of duodenal ulceration. DESCRIPTION OF PROCEDURE: After the risks and benefits of the procedure were explained to the patient including risks of bleeding, infection, perforation, reactions to anesthesia, aspiration, and/or pain, informed consent was obtained. The patient was then taken to the endoscopy suite, where deep sedation was administered via propofol and anesthesia support. Once adequate sedation was achieved, the standard gastroscope was introduced into the mouth with intubation of the esophagus, stomach, and the proximal small intestine with the findings listed below. The patient tolerated the procedure well with no immediate perioperative complications. Upon conclusion of the procedure, all equipment was removed from the patient and she was transferred to PACU in satisfactory condition. FINDINGS: 1. Esophagus: Normal-appearing mucosa was seen in the proximal, mid, and distal esophagus. There was no evidence of erosions, ulcerations, mass, lesions, or active/recent bleeding. 2. Stomach: Normal-appearing mucosa was seen in the gastric cardia, fundus, body, greater curvature, antrum, and incisura. There was no evidence of erosions, ulcerations, mass, lesions, or active/recent bleeding. 3. Duodenum: Normal-appearing mucosa was seen in the proximal duodenal bulb. However, a 5 to 6 mm clean based ulceration was seen at the posterior portion of the duodenal bulb and into the duodenal sweep. Upon further evaluation of this ulceration, it did exhibit friability and mild oozing of blood with passage of the gastroscope. A small area of what appeared to be a visible vessel was seen at the periphery of the ulceration with mild oozing of blood from this site as well. Using epinephrine in a 1:10,000 dilution, it was injected in a 4-quadrant fashion around this site with approximately 4 mL distilled into the duodenal wall and good blanching achieved. Upon injection with the epinephrine, using a 10-Malay bipolar cautery probe, it was successfully cauterized with good hemostasis achieved. Further inspection in the area did not reveal any further bleeding. Inspection of the second portion of the duodenum did not yield any additional abnormalities with no erosions, ulcerations, mass, lesions, or active/recent bleeding seen at the site. IMPRESSION: 1. A 5 to 6 mm duodenal sweep ulceration with mild oozing of blood, now status post epinephrine injection and bipolar cauterization with good hemostasis achieved. 2. Otherwise, normal upper endoscopy. RECOMMENDATIONS: 1. We will continue to trend H and H and transfuse as necessary to maintain an H and H of 7/. 2. Continue to monitor clinically for signs of active GI bleeding. 3. Would place the patient on a clear liquid diet, but careful monitoring for signs of GI bleeding and n.p.o. status reinstated if recurring. 4. Would continue the patient on pantoprazole 40 mg b.i.d. 5. Would monitor the patient in the hospital over the next 48 hours given the increased risk of rebleeding during this time and repeat upper endoscopy if evidence of active bleeding. 6. Agree with placing the patient in an intermediate care bed setting. We will continue to follow. Please call with any questions. Job ID: [id number]
[2018-11-23] MEDS: Ondansetron ODT 4 MG TAB PO PRN ×2 (00:04→11:17)
[2018-11-23] MEDS: Sodium Chloride 0.9% 1,000 ML IV SCH ×2 (00:05→05:32)
[2018-11-23 01:18] LABS: #Basophils 0.1 thou/uL (0.0-0.2); #Lymphocytes 3.1 thou/uL (1.20-3.40); #Neutrophils 10.5 thou/uL (1.40-6.50); %Basophils 0.4 % (0.0-1.0); %Eosinophils 0.1 % (0.0-10.0); %Lymphocytes 20.9 % (21.0-51.0); %Monocytes 6.9 % (0.0-10.0); %Neutrophils 71.8 % (42.0-75.0); Hemoglobin 6.9 g/dL (12.0-16.0); Mean Corpuscular HGB CONC 32.6 g/dL (32.0-36.0); Mean Corpuscular Hemoglobin 28.4 pg (27.0-31.0); Mean Corpuscular Volume 87.2 fL (78.0-98.0); Mean Platelet Volume 7.4 fL (7.4-10.4); Platelet Count 342 thou/uL (130-400); RBC Distribution Width 14.6 % (11.5-14.5); Red Blood Cell (RBC) Count 2.42 mill/uL (4.20-5.40); White Blood Cell (WBC) Count 14.7 thou/uL (4.8-10.8)
[2018-11-23] MEDS ORDERED: Senokot S 8.6-50 MG TAB PO PRN (08:07)
[2018-11-23] MEDS ORDERED: Eucerin (Mineral Oil/Petrolatum,White) 30 gm Jar TOP PRN (08:07)
[2018-11-23] MEDS ORDERED: Cepastat Lozenges 1 LOZ PO PRN (08:07)
[2018-11-23] MEDS ORDERED: Sodium Chloride 0.65% Nasal 44 ML BOT EA NARE PRN (08:07)
[2018-11-23] MEDS ORDERED: Bisacodyl 5 MG TAB PO PRN (08:07)
[2018-11-23] MEDS ORDERED: Diabetic Tussin 200 MG/10 ML UDCUP PO PRN (08:07)
[2018-11-23] MEDS ORDERED: Zolpidem Tartrate 5 MG TAB PO PRN (08:07)
[2018-11-23] MEDS ORDERED: Artificial Tears 18 DROP/0.9 ML EA EYE PRN (08:07)
[2018-11-23] MEDS ORDERED: Loperamide HCl 2 MG CAP PO PRN (08:07)
[2018-11-23] MEDS ORDERED: Loratadine 10 MG TAB PO PRN (08:07)
[2018-11-23] MEDS ORDERED: Lisinopril 20 MG TAB PO SCH (09:00)
[2018-11-23] MEDS ORDERED: Potassium Chloride 20 MEQ TAB PO SCH (09:00)
[2018-11-23 09:05] LABS: #Basophils 0.1 thou/uL (0.0-0.2); #Lymphocytes 1.8 thou/uL (1.20-3.40); #Monocytes 0.7 thou/uL (0.11-0.59); #Neutrophils 7.8 thou/uL (1.40-6.50); %Basophils 0.7 % (0.0-1.0); %Eosinophils 0.3 % (0.0-10.0); %Lymphocytes 16.9 % (21.0-51.0); %Monocytes 6.9 % (0.0-10.0); %Neutrophils 75.2 % (42.0-75.0); Hemoglobin 8.5 g/dL (12.0-16.0); Mean Corpuscular HGB CONC 32.8 g/dL (32.0-36.0); Mean Corpuscular Hemoglobin 28.7 pg (27.0-31.0); Mean Corpuscular Volume 87.5 fL (78.0-98.0); Mean Platelet Volume 7.4 fL (7.4-10.4); Platelet Count 315 thou/uL (130-400); RBC Distribution Width 14.2 % (11.5-14.5); Red Blood Cell (RBC) Count 2.97 mill/uL (4.20-5.40); White Blood Cell (WBC) Count 10.4 thou/uL (4.8-10.8)
[2018-11-23 09:27] LABS: Anion Gap 9 mmol/L (10-20); BUN (Urea Nitrogen) 15 mg/dL (9.8-20.1); Calc. Creatinine Clearance 75 mL/min (70-130); Calcium 7.7 mg/dL (7.8-10.44); Carbon Dioxide 21 mmol/L (23-31); Chloride 111 mmol/L (98-107); Estimated GFR-MDRD 77; Glucose 138 mg/dL (80-115); Potassium 3.2 mmol/L (3.5-5.1); Sodium 138 mmol/L (136-145)
[2018-11-23] MEDS: HYDROcodone/Acetaminophen 5/325 mg Tablet PO PRN ×3 (09:36→22:26)
[2018-11-23] MEDS: metFORMIN 500 MG TAB PO SCH ×2 (09:37→16:34)
[2018-11-23] MEDS: Gabapentin 300 MG CAP PO SCH ×3 (09:37→22:26)
[2018-11-23] MEDS: Ferrous Sulfate 325 MG TAB PO SCH (09:37)
[2018-11-23] MEDS: Pantoprazole 40 MG VIAL IVP SCH ×2 (09:37→22:48)
[2018-11-23] MEDS: 1/2 NS w/KCL 20 mEq 1,000 ML IV SCH ×2 (09:37→13:47)
--- NOTE | 2018-11-23 11:47 | PDOC.PN ---
- Subjective Encounter Start Date: 11/23/18 Encounter Start Time: 09:00 -: old records requested/rev Patient seen and examined. No new complaints. No overnight events - Objective Resuscitation Status - Order Detail: 11/22/18 11:41 Resuscitation Status Routine Resuscitation Status: FULL: Full Resuscitation MAR Reviewed: Yes Vital Signs & Weight: Vital Signs (12 hours) Temp Resp Pulse Ox 11/23/18 08:00 97.5 F L 11/23/18 07:43 98 11/23/18 05:30 98.7 F 16 97 11/23/18 04:15 98.4 F 16 99 11/23/18 04:01 98.8 F 18 100 11/23/18 00:07 98.3 F Weight Weight 138 lb 7.205 oz Most Recent Monitor Data Heart Rate from ECG 65 NIBP 163/74 NIBP BP-Mean 103 Respiration from ECG 17 SpO2 98 I&O: 11/22/18 11/23/18 11/24/18 06:59 06:59 06:59 Intake Total 2505 Output Total 825 Balance 1680 Result Diagrams: 11/23/18 08:55 11/23/18 08:55 Additional Labs: Accuchecks 11/23/18 11/23/18 11/22/18 10:32 06:07 20:06 POC Glucose 143 H 135 H 151 H 11/22/18 17:56 POC Glucose 173 H EKG Reviewed by me: Yes Phys Exam - Physical Examination Constitutional: NAD HEENT: PERRLA, moist MMs, sclera anicteric Neck: no JVD, supple Respiratory: no wheezing, no rales, no rhonchi Cardiovascular: RRR, no significant murmur, no rub Gastrointestinal: soft, non-tender, no distention, positive bowel sounds Musculoskeletal: no edema, pulses present Neurological: non-focal, normal sensation, moves all 4 limbs Lymphatic: no nodes Psychiatric: normal affect, A&O x 3 Skin: no rash, normal turgor Dx/Plan (1) Anemia due to acute blood loss Code(s): D62 - ACUTE POSTHEMORRHAGIC ANEMIA Status: Acute (2) Hypokalemia Code(s): E87.6 - HYPOKALEMIA Status: Acute (3) Upper GI bleed Code(s): K92.2 - GASTROINTESTINAL HEMORRHAGE, UNSPECIFIED Status: Acute (4) Diabetes type 2, controlled Code(s): E11.9 - TYPE 2 DIABETES MELLITUS WITHOUT COMPLICATIONS Status: Chronic (5) Dyslipidemia Code(s): E78.5 - HYPERLIPIDEMIA, UNSPECIFIED Status: Chronic (6) HTN (hypertension) Code(s): I10 - ESSENTIAL (PRIMARY) HYPERTENSION Status: Chronic Qualifiers: (7) Neuropathic pain Status: Chronic (8) PUD (peptic ulcer disease) Code(s): K27.9 - PEPTIC ULC, SITE UNSP, UNSP AC OR CHR, W/O HEMOR OR PERF Status: Chronic (9) Restless leg syndrome Status: Chronic - Plan cont current plan of care, plan discussed w/ family * transfer to medical * medication reviewed as below * symptomatic treatment * replace potassium * continue gentle IVF * continue IV protonix * repeat labs tomorrow * ambulate as tolerated. Review of Systems - Review of Systems ENT: negative: Ear Pain, Ear Discharge, Nose Pain, Nose Discharge, Nose Congestion, Mouth Pain, Mouth Swelling, Throat Pain, Throat Swelling, Other Respiratory: negative: Cough, Dry, Shortness of Breath, Hemoptysis, SOB with Excertion, Pleuritic Pain, Sputum, Wheezing Cardiovascular: negative: chest pain, palpitations, orthopnea, paroxysmal nocturnal dyspnea, edema, light headedness, other Gastrointestinal: negative: Nausea, Vomiting, Abdominal Pain, Diarrhea, Constipation, Melena, Hematochezia, Other Genitourinary: negative: Dysuria, Frequency, Incontinence, Hematuria, Retention , Other Musculoskeletal: negative: Neck Pain, Shoulder Pain, Arm Pain, Back Pain, Hand Pain, Leg Pain, Foot Pain, Other Skin: negative: Rash, Lesions, Joe, Bruising, Other - Medications/Allergies Allergies/Adverse Reactions: Allergies Allergy/AdvReac Type Severity Reaction Status Date / Time ciprofloxacin Allergy Verified 11/06/18 19:36 Medications: Current Medications Acetaminophen (Tylenol) 650 mg PO Q4H PRN PRN Reason: Headache/Fever/Mild Pain (1-3) Last Admin: 11/22/18 19:32 Dose: 650 mg Hydrocodone Bitart/Acetaminophen ([place] 5/325) 1 tab PO Q4H PRN PRN Reason: Moderate Pain (4-6) Last Admin: 11/23/18 09:36 Dose: 1 tab Albuterol Sulfate (Proventil Hfa) 1 puff INH PRN PRN PRN Reason: . Artificial Tears (Tears Naturale) 2 drop EA EYE PRN PRN PRN Reason: Dry Eyes Bisacodyl (Dulcolax) 10 mg PO DAILYPRN PRN PRN Reason: Constipation Clonidine (Catapres) 0.1 mg PO Q4H PRN PRN Reason: SBP GREATER THAN 160 Dextrose/Water (Dextrose 50%) 25 gm SLOW IVP PRN PRN PRN Reason: Hypoglycemia Ferrous Sulfate (Feosol) 325 mg PO QAM [facility] Last Admin: 11/23/18 09:37 Dose: 325 mg Gabapentin (Neurontin) 300 mg PO TID [facility] Last Admin: 11/23/18 09:37 Dose: 300 mg Glucagon (Glucagon) 1 mg IM PRN PRN PRN Reason: Hypoglycemia Guaifenesin (Robitussin Sf) 200 mg PO Q4H PRN PRN Reason: Cough Hydralazine HCl (Apresoline) 10 mg SLOW IVP Q4H PRN PRN Reason: SBP > 180 and HR < 70 Dextrose/Water (D5w) 1,000 mls @ 0 mls/hr IV .Q0M PRN PRN Reason: Hypoglycemia Potassium Chloride/Sodium Chloride (1/2 Ns W/Kcl 20 Meq) 1,000 mls @ 50 mls/hr IV .Q20H [facility] Last Admin: 11/23/18 09:37 Dose: 1,000 mls Insulin Human Lispro (Humalog) 0 units SC .MILD SLIDING SCALE PRN PRN Reason: Mild Correctional Scale Loperamide HCl (Imodium) 2 mg PO PRN PRN PRN Reason: Diarrhea/Loose Stools Loratadine (Claritin) 10 mg PO DAILYPRN PRN PRN Reason: Sinus Symptoms Metformin HCl (Glucophage) 500 mg PO BID-[facility] Last Admin: 11/23/18 09:37 Dose: 500 mg Mineral Oil/White Petrolatum (Eucerin Cream) 0 gm TOP BIDPRN PRN PRN Reason: Dry Skin Ondansetron HCl (Zofran Odt) 4 mg PO Q6H PRN PRN Reason: Nausea/Vomiting Last Admin: 11/23/18 11:17 Dose: 4 mg Pantoprazole Sodium (Protonix) 40 mg IVP Q12HR [facility] Last Admin: 11/23/18 09:37 Dose: 40 mg Potassium Chloride (K-Dur) 20 meq PO QAM [facility] Last Admin: 11/23/18 09:37 Dose: 20 meq Senna/Docusate Sodium (Senokot S) 2 tab PO BID PRN PRN Reason: Constipation Sodium Chloride (Normal Saline Pf) 10 ml FS PRN PRN PRN Reason: RECONSTITUTION Sodium Chloride ([place] Nasal [place] 0.65%) 0 ml EA NARE QIDPRN PRN PRN Reason: Nasal Congestion Throat Lozenges (Cepastat Lozenges) 1 tyler PO Q2H PRN PRN Reason: Sore Throat Tramadol HCl (Ultram) 50 mg PO BIDPRN PRN PRN Reason: Pain 4-6 Last Admin: 11/22/18 19:33 Dose: 50 mg Zolpidem Tartrate (Ambien) 5 mg PO HSPRN PRN PRN Reason: Insomnia
[2018-11-23] MEDS: cloNIDine 0.1 MG TAB PO PRN (12:04)
[2018-11-23] MEDS: hydrALAZINE 20 MG/ML VIAL SLOW IVP PRN ×2 (13:25→22:28)
[2018-11-23 13:32] VITALS: BMI 33.3
--- NOTE | 2018-11-23 13:57 | PRG ---
DATE OF SERVICE: 11/23/2018 SUBJECTIVE: This is a 63-year-old female with recurrent GI bleeding. She was hospitalized here a couple of weeks ago with black tarry stool and anemia. She underwent EGD and was found to have an ulcer in the duodenal bulb. She had similar episodes in the past, last year in June 2018. The patient came back because of melena for the last several days. She had an EGD done by Dr. aBlta John and was found to have a nonbleeding ulcer over the postbulbar area of the duodenum. The patient came with abdominal pain. No nausea or vomiting. She had . Her CBC today is better than yesterday. WBC 50014, hemoglobin 8.5, hematocrit 26, MCV 87.5. PHYSICAL EXAMINATION: GENERAL: Appears very comfortable. VITAL SIGNS: Stable. Afebrile. Pulse is 71, blood pressure is 181/82. CARDIOVASCULAR: Within normal limits. LUNGS: Within normal limits. ABDOMEN: Soft. No organomegaly. No tenderness. No masses. CLINICAL IMPRESSION: Recurrent gastrointestinal bleeding. Initial one was on June of 2018 numerous ulcerations in the stomach and also in the duodenum. The last 1 about 3 weeks ago showed very minimal findings. She comes back with melena and EGD yesterday showed small ulcer. No active bleeding seen. PLAN: Colonoscopy. I did talk to the patient and patient's family and explained that she needs again a colonoscopy because of her age. Also because of recent GI bleeding and negative endoscopy with EGD, I believe she should have colonoscopy to rule out any other pathology. She was explained the bowel prep. She is agreeable. I will plan for colonoscopy tomorrow. I will leave her on clear liquid diet until colonoscopy. Job ID: [id number]
[2018-11-23] MEDS ORDERED: GoLYTELY 4,000 ml Bottle PO SCH (17:00)
[2018-11-23] MEDS ORDERED: Morphine 4 MG/ML VIAL SLOW IVP SCH (22:45)
[2018-11-23] MEDS: Sodium Chloride 0.9% (PF) 10 ML VIAL FS PRN (22:48)
[2018-11-24] MEDS: HYDROcodone/Acetaminophen 5/325 mg Tablet PO PRN ×2 (03:39→07:29)
[2018-11-24] MEDS ORDERED: Morphine 4 MG/ML VIAL SLOW IVP SCH ×3 (04:15→12:45)
[2018-11-24] MEDS: hydrALAZINE 20 MG/ML VIAL SLOW IVP PRN ×2 (04:17→11:28)
[2018-11-24 06:31] LABS: #Eosinphils 0.1 thou/uL (0.0-0.7); #Monocytes 0.8 thou/uL (0.11-0.59); #Neutrophils 6.5 thou/uL (1.40-6.50); %Eosinophils 1.3 % (0.0-10.0); %Lymphocytes 21.5 % (21.0-51.0); %Monocytes 8.1 % (0.0-10.0); %Neutrophils 69.1 % (42.0-75.0); Hemoglobin 9.3 g/dL (12.0-16.0); Mean Corpuscular HGB CONC 33.3 g/dL (32.0-36.0); Mean Corpuscular Volume 86.9 fL (78.0-98.0); Mean Platelet Volume 7.2 fL (7.4-10.4); Platelet Count 389 thou/uL (130-400); RBC Distribution Width 14.8 % (11.5-14.5); Red Blood Cell (RBC) Count 3.22 mill/uL (4.20-5.40); White Blood Cell (WBC) Count 9.5 thou/uL (4.8-10.8)
[2018-11-24 06:42] LABS: Anion Gap 17 mmol/L (10-20); BUN (Urea Nitrogen) 5 mg/dL (9.8-20.1); Calc. Creatinine Clearance 86 mL/min (70-130); Calcium 8.2 mg/dL (7.8-10.44); Carbon Dioxide 18 mmol/L (23-31); Chloride 108 mmol/L (98-107); Estimated GFR-MDRD 90; Glucose 87 mg/dL (80-115); Magnesium 1.5 mg/dL (1.6-2.6); Sodium 140 mmol/L (136-145)
[2018-11-24 06:45] LABS: Phosphorus 1.5 mg/dL (2.3-4.7)
[2018-11-24] MEDS ORDERED: Ondansetron PF 4 MG/2 ML Vial IVP PRN (07:19)
[2018-11-24] MEDS: cloNIDine 0.1 MG TAB PO PRN (07:21)
[2018-11-24] MEDS ORDERED: Potassium Phosphate 30 MMOL in Sodium Chloride 0.9% 500 ML IVPB SCH (07:30)
[2018-11-24] MEDS ORDERED: Magnesium Sulfate 4 GM in Sodium Chloride 0.9% 250 ML 250 ML IVPB SCH (07:30)
[2018-11-24] MEDS ORDERED: Morphine 4 MG/ML VIAL ONE (08:10)
[2018-11-24] MEDS ORDERED: Gabapentin 300 MG CAP PO SCH (09:00)
--- NOTE | 2018-11-24 09:26 | PDOC.PN ---
- Subjective Encounter Start Date: 11/24/18 Encounter Start Time: 07:00 -: old records requested/rev this morning pt has bilateral leg pain, no fever, no further bleeding - Objective Resuscitation Status - Order Detail: 11/22/18 11:41 Resuscitation Status Routine Resuscitation Status: FULL: Full Resuscitation MAR Reviewed: Yes Vital Signs & Weight: Vital Signs (12 hours) Temp Pulse Resp BP BP BP Pulse Ox 11/24/18 07:45 98.9 F 107 H 20 228/92 H 97 11/24/18 07:21 181/82 H 11/24/18 04:17 94 11/24/18 03:56 98.7 F 94 18 186/80 H 98 11/24/18 00:00 98.7 F 90 18 132/63 96 11/23/18 22:28 75 Weight Admit Weight 138 lb Weight 138 lb 7.205 oz Most Recent Monitor Data Heart Rate from ECG 71 NIBP 181/82 NIBP BP-Mean 115 Respiration from ECG 18 SpO2 98 I&O: 11/23/18 11/24/18 11/25/18 06:59 06:59 06:59 Intake Total 2505 750 Output Total 825 Balance 1680 750 Result Diagrams: 11/24/18 06:09 11/24/18 06:09 Additional Labs: Accuchecks 11/24/18 11/23/18 11/23/18 06:07 20:28 16:13 POC Glucose 92 89 96 11/23/18 10:32 POC Glucose 143 H Phys Exam - Physical Examination Constitutional: NAD HEENT: PERRLA, moist MMs, sclera anicteric Neck: no JVD, supple Respiratory: no wheezing, no rales, no rhonchi Cardiovascular: RRR, no significant murmur, no rub Gastrointestinal: soft, non-tender, no distention, positive bowel sounds Musculoskeletal: no edema, pulses present Neurological: non-focal, normal sensation Lymphatic: no nodes Psychiatric: normal affect, A&O x 3 Skin: no rash, normal turgor Dx/Plan (1) Upper GI bleed Code(s): K92.2 - GASTROINTESTINAL HEMORRHAGE, UNSPECIFIED Status: Acute (2) Anemia due to acute blood loss Code(s): D62 - ACUTE POSTHEMORRHAGIC ANEMIA Status: Acute (3) Hypokalemia Code(s): E87.6 - HYPOKALEMIA Status: Acute (4) Diabetes type 2, controlled Code(s): E11.9 - TYPE 2 DIABETES MELLITUS WITHOUT COMPLICATIONS Status: Chronic (5) Dyslipidemia Code(s): E78.5 - HYPERLIPIDEMIA, UNSPECIFIED Status: Chronic (6) HTN (hypertension) Code(s): I10 - ESSENTIAL (PRIMARY) HYPERTENSION Status: Chronic Qualifiers: (7) Neuropathic pain Status: Chronic (8) PUD (peptic ulcer disease) Code(s): K27.9 - PEPTIC ULC, SITE UNSP, UNSP AC OR CHR, W/O HEMOR OR PERF Status: Chronic (9) Restless leg syndrome Status: Chronic (10) Hypomagnesemia Code(s): E83.42 - HYPOMAGNESEMIA Status: Acute (11) Hypophosphatemia Code(s): E83.39 - OTHER DISORDERS OF PHOSPHORUS METABOLISM Status: Acute - Plan cont current plan of care, plan discussed w/ family * today colonoscopy * replace magnesium * replace potassium phosphate * repeat labs tomorrow * expecting discharge tomorrow * medication reviewed as below * symptomatic treatment Review of Systems - Review of Systems ENT: negative: Ear Pain, Ear Discharge, Nose Pain, Nose Discharge, Nose Congestion, Mouth Pain, Mouth Swelling, Throat Pain, Throat Swelling, Other Respiratory: negative: Cough, Dry, Shortness of Breath, Hemoptysis, SOB with Excertion, Pleuritic Pain, Sputum, Wheezing Cardiovascular: negative: chest pain, palpitations, orthopnea, paroxysmal nocturnal dyspnea, edema, light headedness, other Gastrointestinal: negative: Nausea, Vomiting, Abdominal Pain, Diarrhea, Constipation, Melena, Hematochezia, Other Genitourinary: negative: Dysuria, Frequency, Incontinence, Hematuria, Retention , Other Musculoskeletal: Leg Pain. negative: Neck Pain, Shoulder Pain, Arm Pain, Back Pain, Hand Pain, Foot Pain, Other Skin: negative: Rash, Lesions, Joe, Bruising, Other - Medications/Allergies Allergies/Adverse Reactions: Allergies Allergy/AdvReac Type Severity Reaction Status Date / Time ciprofloxacin Allergy Verified 11/06/18 19:36 Medications: Current Medications Acetaminophen (Tylenol) 650 mg PO Q4H PRN PRN Reason: Headache/Fever/Mild Pain (1-3) Last Admin: 11/22/18 19:32 Dose: 650 mg Hydrocodone Bitart/Acetaminophen ([place] 5/325) 1 tab PO Q4H PRN PRN Reason: Moderate Pain (4-6) Last Admin: 11/24/18 07:29 Dose: 1 tab Albuterol Sulfate (Proventil Hfa) 1 puff INH PRN PRN PRN Reason: . Artificial Tears (Tears Naturale) 2 drop EA EYE PRN PRN PRN Reason: Dry Eyes Bisacodyl (Dulcolax) 10 mg PO DAILYPRN PRN PRN Reason: Constipation Clonidine (Catapres) 0.1 mg PO Q4H PRN PRN Reason: SBP GREATER THAN 160 Last Admin: 11/24/18 07:21 Dose: 0.1 mg Dextrose/Water (Dextrose 50%) 25 gm SLOW IVP PRN PRN PRN Reason: Hypoglycemia Ferrous Sulfate (Feosol) 325 mg PO QAM [facility] Last Admin: 11/23/18 09:37 Dose: 325 mg Gabapentin (Neurontin) 300 mg PO TID [facility] Last Admin: 11/23/18 22:26 Dose: 300 mg Glucagon (Glucagon) 1 mg IM PRN PRN PRN Reason: Hypoglycemia Guaifenesin (Robitussin Sf) 200 mg PO Q4H PRN PRN Reason: Cough Hydralazine HCl (Apresoline) 10 mg SLOW IVP Q4H PRN PRN Reason: SBP > 180 and HR < 70 Last Admin: 11/24/18 04:17 Dose: 10 mg Dextrose/Water (D5w) 1,000 mls @ 0 mls/hr IV .Q0M PRN PRN Reason: Hypoglycemia Potassium Chloride/Sodium Chloride (1/2 Ns W/Kcl 20 Meq) 1,000 mls @ 50 mls/hr IV .Q20H [facility] Last Admin: 11/23/18 13:47 Dose: 1,000 mls Magnesium Sulfate 4 gm/ Sodium (Chloride) 258 mls @ 86 mls/hr IVPB NOW [facility] Stop: 11/24/18 10:29 Potassium Phosphate 30 mmol/ (Sodium Chloride) 510 mls @ 63.75 mls/hr IVPB NOW [facility] Stop: 11/24/18 15:29 Insulin Human Lispro (Humalog) 0 units SC .MILD SLIDING SCALE PRN PRN Reason: Mild Correctional Scale Loperamide HCl (Imodium) 2 mg PO PRN PRN PRN Reason: Diarrhea/Loose Stools Loratadine (Claritin) 10 mg PO DAILYPRN PRN PRN Reason: Sinus Symptoms Metformin HCl (Glucophage) 500 mg PO BID-[facility] Last Admin: 11/23/18 16:34 Dose: 500 mg Mineral Oil/White Petrolatum (Eucerin Cream) 0 gm TOP BIDPRN PRN PRN Reason: Dry Skin Morphine Sulfate (Morphine) 4 mg SLOW IVP NOW [facility] Stop: 11/24/18 10:00 Ondansetron HCl (Zofran Odt) 4 mg PO Q6H PRN PRN Reason: Nausea/Vomiting Last Admin: 11/23/18 11:17 Dose: 4 mg Ondansetron HCl (Zofran) 4 mg IVP Q6H PRN PRN Reason: Nausea/Vomiting Pantoprazole Sodium (Protonix) 40 mg IVP Q12HR [facility] Last Admin: 11/23/18 22:48 Dose: 40 mg Phosphorus (Kphos Neutral) [facility] Senna/Docusate Sodium (Senokot S) 2 tab PO BID PRN PRN Reason: Constipation Sodium Chloride (Normal Saline Pf) 10 ml FS PRN PRN PRN Reason: RECONSTITUTION Last Admin: 11/23/18 22:48 Dose: 10 ml Sodium Chloride ([place] Nasal [place] 0.65%) 0 ml EA NARE QIDPRN PRN PRN Reason: Nasal Congestion Throat Lozenges (Cepastat Lozenges) 1 tyler PO Q2H PRN PRN Reason: Sore Throat Tramadol HCl (Ultram) 50 mg PO BIDPRN PRN PRN Reason: Pain 4-6 Last Admin: 11/22/18 19:33 Dose: 50 mg Zolpidem Tartrate (Ambien) 5 mg PO HSPRN PRN PRN Reason: Insomnia
[2018-11-24] MEDS ORDERED: PROPOFOL 200 MG/20 ML VIAL ONE (09:44)
[2018-11-24] MEDS ORDERED: Fentanyl 100 MCG/2 ML VIAL ONE (09:45)
[2018-11-24] MEDS ORDERED: traMADol HCl 50 MG TAB PO PRN (10:53)
[2018-11-24] MEDS ORDERED: Lorazepam 0.5 MG TAB PO PRN (10:54)
[2018-11-24] MEDS: Morphine 2 MG/ML SYRINGE SLOW IVP PRN ×2 (11:52→19:36)
[2018-11-24] MEDS: Ferrous Sulfate 325 MG TAB PO SCH (11:54)
[2018-11-24] MEDS: Lisinopril 20 MG TAB PO SCH (11:54)
[2018-11-24] MEDS: Gabapentin 300 MG CAP PO SCH ×5 (11:54→21:28)
[2018-11-24] MEDS: cloNIDine 0.1 MG TAB PO SCH ×2 (11:55→21:27)
[2018-11-24] MEDS: Potassium Chloride 20 MEQ TAB PO SCH (11:55)
[2018-11-24] MEDS: Pantoprazole 40 MG VIAL IVP SCH ×2 (11:56→21:29)
[2018-11-24] MEDS: metFORMIN 500 MG TAB PO SCH ×2 (11:59→17:45)
[2018-11-24] MEDS: K-Phos Neutral 250 MG TAB PO SCH ×2 (12:00→17:45)
--- NOTE | 2018-11-24 13:26 | OP ---
DATE OF PROCEDURE: 11/24/2018 OPERATIVE PROCEDURE: Colonoscopy. PREOPERATIVE DIAGNOSES: Gastrointestinal bleeding, anemia due to blood loss. POSTOPERATIVE DIAGNOSES: 1. Normal colonoscopy. 2. Small hemorrhoids. DESCRIPTION OF PROCEDURE: The patient was placed on her left lateral position and was given sedation by Anesthesia Department. The rectal exam was done before the scope was advanced into the rectum. No lesions felt on rectal exam. A Pentax video colonoscope was introduced into the rectum and advanced all the way to the cecum. The prep is good. The mucosa appears normal throughout the colon. The appendiceal orifice, ileocecal wall, and cecum; no pathology seen. Withdrawal of scope from cecum, ascending colon, and hepatic flexure; no pathology seen. The transverse colon, splenic flexure, descending colon, sigmoid colon; no pathology seen. Retroflexion of scope in the rectum showed small hemorrhoids. RECOMMENDATIONS: 1. Diabetic diet. 2. Follow up H and H. 3. Consider discharge home tomorrow if no problems. Job ID: [id number]
[2018-11-24] MEDS ORDERED: BUPRENORPHINE HCL BUC SCH (21:00)
[2018-11-24] MEDS: Sodium Chloride 0.9% (PF) 10 ML VIAL FS PRN (21:29)
[2018-11-25 04:50] LABS: #Eosinphils 0.1 thou/uL (0.0-0.7); #Lymphocytes 1.5 thou/uL (1.20-3.40); #Monocytes 0.7 thou/uL (0.11-0.59); #Neutrophils 5.1 thou/uL (1.40-6.50); %Basophils 0.5 % (0.0-1.0); %Eosinophils 1.9 % (0.0-10.0); %Monocytes 9.1 % (0.0-10.0); %Neutrophils 68.4 % (42.0-75.0); Hemoglobin 8.6 g/dL (12.0-16.0); Mean Corpuscular HGB CONC 33.1 g/dL (32.0-36.0); Mean Corpuscular Hemoglobin 29.4 pg (27.0-31.0); Mean Corpuscular Volume 88.7 fL (78.0-98.0); Mean Platelet Volume 7.2 fL (7.4-10.4); Platelet Count 394 thou/uL (130-400); RBC Distribution Width 14.9 % (11.5-14.5); Red Blood Cell (RBC) Count 2.94 mill/uL (4.20-5.40); White Blood Cell (WBC) Count 7.5 thou/uL (4.8-10.8)
[2018-11-25 05:06] LABS: Anion Gap 14 mmol/L (10-20); BUN (Urea Nitrogen) 5 mg/dL (9.8-20.1); Calc. Creatinine Clearance 88 mL/min (70-130); Carbon Dioxide 19 mmol/L (23-31); Chloride 108 mmol/L (98-107); Estimated GFR-MDRD Greater than 90; Glucose 91 mg/dL (80-115); Phosphorus 3.3 mg/dL (2.3-4.7); Potassium 3.2 mmol/L (3.5-5.1); Sodium 138 mmol/L (136-145)
[2018-11-25] MEDS ORDERED: Potassium Chloride 20 MEQ in Premix Bag 1 BAG IVPB SCH (08:15)
[2018-11-25] MEDS: HYDROcodone/Acetaminophen 5/325 mg Tablet PO PRN (08:41)
[2018-11-25] MEDS: K-Phos Neutral 250 MG TAB PO SCH (08:41)
[2018-11-25] MEDS: Pantoprazole 40 MG VIAL IVP SCH (08:41)
[2018-11-25] MEDS: metFORMIN 500 MG TAB PO SCH (08:43)
[2018-11-25] MEDS: Lisinopril 20 MG TAB PO SCH (08:43)
[2018-11-25] MEDS: cloNIDine 0.1 MG TAB PO SCH (08:43)
[2018-11-25] MEDS: Ferrous Sulfate 325 MG TAB PO SCH (08:44)
[2018-11-25] MEDS: Potassium Chloride 20 MEQ TAB PO SCH (08:44)
[2018-11-25] MEDS: Gabapentin 300 MG CAP PO SCH ×2 (08:44→15:04)
[2018-11-25] MEDS: Morphine 2 MG/ML SYRINGE SLOW IVP PRN (08:49)
--- NOTE | 2018-11-25 09:46 | PDOC.PN ---
- Subjective Encounter Start Date: 11/25/18 Encounter Start Time: 07:00 Patient seen and examined. No new complaints. No overnight events - Objective Resuscitation Status - Order Detail: 11/22/18 11:41 Resuscitation Status Routine Resuscitation Status: FULL: Full Resuscitation MAR Reviewed: Yes Vital Signs & Weight: Vital Signs (12 hours) Temp Pulse Resp BP BP Pulse Ox 11/25/18 08:43 179/78 H 11/25/18 07:38 98.4 F 79 18 179/78 H 96 11/25/18 00:19 98.2 F 82 18 118/56 L 95 Weight Admit Weight 138 lb Weight 138 lb 7.205 oz Most Recent Monitor Data Heart Rate from ECG 71 NIBP 181/82 NIBP BP-Mean 115 Respiration from ECG 18 SpO2 98 I&O: 11/24/18 11/25/18 11/26/18 06:59 06:59 06:59 Intake Total 750 750 Balance 750 750 Result Diagrams: 11/25/18 04:36 11/25/18 04:36 Additional Labs: Accuchecks 11/25/18 11/24/18 11/24/18 05:29 20:38 16:14 POC Glucose 97 91 154 H 11/24/18 11:17 POC Glucose 115 H Phys Exam - Physical Examination Constitutional: NAD HEENT: PERRLA, moist MMs, sclera anicteric Neck: no JVD, supple Respiratory: no wheezing, no rales, no rhonchi Cardiovascular: RRR, no significant murmur, no rub Gastrointestinal: soft, non-tender, no distention, positive bowel sounds Musculoskeletal: no edema, pulses present Neurological: non-focal, normal sensation Psychiatric: normal affect, A&O x 3 Skin: no rash, normal turgor Dx/Plan (1) Upper GI bleed Code(s): K92.2 - GASTROINTESTINAL HEMORRHAGE, UNSPECIFIED Status: Acute (2) Anemia due to acute blood loss Code(s): D62 - ACUTE POSTHEMORRHAGIC ANEMIA Status: Acute (3) Hypokalemia Code(s): E87.6 - HYPOKALEMIA Status: Acute (4) Diabetes type 2, controlled Code(s): E11.9 - TYPE 2 DIABETES MELLITUS WITHOUT COMPLICATIONS Status: Chronic (5) Dyslipidemia Code(s): E78.5 - HYPERLIPIDEMIA, UNSPECIFIED Status: Chronic (6) HTN (hypertension) Code(s): I10 - ESSENTIAL (PRIMARY) HYPERTENSION Status: Chronic Qualifiers: (7) Neuropathic pain Status: Chronic (8) PUD (peptic ulcer disease) Code(s): K27.9 - PEPTIC ULC, SITE UNSP, UNSP AC OR CHR, W/O HEMOR OR PERF Status: Chronic (9) Restless leg syndrome Status: Chronic (10) Hypomagnesemia Code(s): E83.42 - HYPOMAGNESEMIA Status: Acute (11) Hypophosphatemia Code(s): E83.39 - OTHER DISORDERS OF PHOSPHORUS METABOLISM Status: Acute - Plan cont current plan of care, plan discussed w/ family * medication reviewed as below * symptomatic treatment * start PT * discharge later today * replace potassium. Review of Systems - Review of Systems ENT: negative: Ear Pain, Ear Discharge, Nose Pain, Nose Discharge, Nose Congestion, Mouth Pain, Mouth Swelling, Throat Pain, Throat Swelling, Other Respiratory: negative: Cough, Dry, Shortness of Breath, Hemoptysis, SOB with Excertion, Pleuritic Pain, Sputum, Wheezing Cardiovascular: negative: chest pain, palpitations, orthopnea, paroxysmal nocturnal dyspnea, edema, light headedness, other Gastrointestinal: negative: Nausea, Vomiting, Abdominal Pain, Diarrhea, Constipation, Melena, Hematochezia, Other Genitourinary: negative: Dysuria, Frequency, Incontinence, Hematuria, Retention , Other Musculoskeletal: negative: Neck Pain, Shoulder Pain, Arm Pain, Back Pain, Hand Pain, Leg Pain, Foot Pain, Other - Medications/Allergies Allergies/Adverse Reactions: Allergies Allergy/AdvReac Type Severity Reaction Status Date / Time ciprofloxacin Allergy Verified 11/06/18 19:36 Medications: Current Medications Acetaminophen (Tylenol) 650 mg PO Q4H PRN PRN Reason: Headache/Fever/Mild Pain (1-3) Last Admin: 11/22/18 19:32 Dose: 650 mg Hydrocodone Bitart/Acetaminophen ([place] 5/325) 1 tab PO Q4H PRN PRN Reason: Moderate Pain (4-6) Last Admin: 11/24/18 07:29 Dose: 1 tab Albuterol Sulfate (Proventil Hfa) 1 puff INH PRN PRN PRN Reason: . Artificial Tears (Tears Naturale) 2 drop EA EYE PRN PRN PRN Reason: Dry Eyes Bisacodyl (Dulcolax) 10 mg PO DAILYPRN PRN PRN Reason: Constipation Clonidine (Catapres) 0.1 mg PO Q4H PRN PRN Reason: SBP GREATER THAN 160 Last Admin: 11/24/18 07:21 Dose: 0.1 mg Clonidine (Catapres) 0.1 mg PO BID [facility] Last Admin: 11/25/18 08:43 Dose: 0.1 mg Dextrose/Water (Dextrose 50%) 25 gm SLOW IVP PRN PRN PRN Reason: Hypoglycemia Ferrous Sulfate (Feosol) 325 mg PO QAM [facility] Last Admin: 11/25/18 08:44 Dose: 325 mg Gabapentin (Neurontin) 600 mg PO TID [facility] Last Admin: 11/25/18 08:44 Dose: 600 mg Glucagon (Glucagon) 1 mg IM PRN PRN PRN Reason: Hypoglycemia Guaifenesin (Robitussin Sf) 200 mg PO Q4H PRN PRN Reason: Cough Hydralazine HCl (Apresoline) 10 mg SLOW IVP Q4H PRN PRN Reason: SBP > 180 and HR < 70 Last Admin: 11/24/18 11:28 Dose: 10 mg Dextrose/Water (D5w) 1,000 mls @ 0 mls/hr IV .Q0M PRN PRN Reason: Hypoglycemia Potassium Chloride 20 meq/ (Device) 100 mls @ 50 mls/hr IVPB NOW [facility] Stop: 11/25/18 10:15 Last Admin: 11/25/18 08:41 Dose: 100 mls Insulin Human Lispro (Humalog) 0 units SC .MILD SLIDING SCALE PRN PRN Reason: Mild Correctional Scale Lisinopril (Zestril) 20 mg PO DAILY [facility] Last Admin: 11/25/18 08:43 Dose: 20 mg Loperamide HCl (Imodium) 2 mg PO PRN PRN PRN Reason: Diarrhea/Loose Stools Loratadine (Claritin) 10 mg PO DAILYPRN PRN PRN Reason: Sinus Symptoms Lorazepam (Ativan) 0.5 mg PO Q4H PRN PRN Reason: Anxiety Last Admin: 11/24/18 11:53 Dose: 0.5 mg Metformin [facility] ([facility]ophage) [facility] Last Admin: 11/25/18 08:43 Dose: 500 mg Mineral Oil/White Petrolatum (Eucerin Cream) 0 gm TOP BIDPRN PRN PRN Reason: Dry Skin Morphine Sulfate (Morphine) 2 mg SLOW IVP Q4H PRN PRN Reason: Pain Last Admin: 11/25/18 08:49 Dose: 2 mg Non-Formulary Medication (Buprenorphine Hcl [[place]]) 1 film BUC BID [facility] Ondansetron HCl (Zofran Odt) 4 mg PO Q6H PRN PRN Reason: Nausea/Vomiting Last Admin: 11/23/18 11:17 Dose: 4 mg Ondansetron HCl (Zofran) 4 mg IVP Q6H PRN PRN Reason: Nausea/Vomiting Pantoprazole Sodium (Protonix) 40 mg IVP Q12HR [facility] Last Admin: 11/25/18 08:41 Dose: 40 mg Phosphorus (Kphos Neutral) 500 mg PO BID-[facility] Last Admin: 11/25/18 08:41 Dose: 500 mg Potassium Chloride (K-Dur) 20 meq PO DAILY [facility] Last Admin: 11/25/18 08:44 Dose: 20 meq Senna/Docusate Sodium (Senokot S) 2 tab PO BID PRN PRN Reason: Constipation Sodium Chloride (Normal Saline Pf) 10 ml FS PRN PRN PRN Reason: RECONSTITUTION Last Admin: 11/24/18 21:29 Dose: 10 ml Sodium Chloride ([place] Nasal [place] 0.65%) 0 ml EA NARE QIDPRN PRN PRN Reason: Nasal Congestion Throat Lozenges (Cepastat Lozenges) 1 tyler PO Q2H PRN PRN Reason: Sore Throat Tramadol HCl (Ultram) 50 mg PO BID PRN PRN Reason: Pain Last Admin: 11/24/18 12:33 Dose: 50 mg Zolpidem Tartrate (Ambien) 5 mg PO HSPRN PRN PRN Reason: Insomnia Last Admin: 11/24/18 21:28 Dose: 5 mg
--- NOTE | 2018-11-25 11:24 | DIS ---
DATE OF ADMISSION: 11/22/2018 DATE OF DISCHARGE: 11/25/2018 PRIMARY CARE PHYSICIAN: [facility]. DISCHARGE DISPOSITION: Home. PRIMARY DISCHARGE DIAGNOSES: 1. Acute gastrointestinal bleed. 2. Acute anemia due to acute blood loss. 3. Hypokalemia, hypomagnesemia, and hypophosphatemia. SECONDARY DISCHARGE DIAGNOSES: 1. Restless legs syndrome. 2. Peptic ulcer disease. 3. Neuropathic pain. 4. Hypertension. 5. Dyslipidemia. 6. Diabetes type 2. 7. Obesity with body mass index 33. PRIMARY PROCEDURE/OPERATION: Upper endoscopy was performed by Dr. John and the patient was found with normal esophagus, normal stomach, and small clean-based ulcer in duodenum, which was showing vessel and cauterized. Colonoscopy was normal, showing external hemorrhoid. RADIOLOGICAL INVESTIGATION: Chest x-ray normal. SIGNIFICANT LABORATORY DATA: Hemoglobin 8.6. INR 1.1. Creatinine 0.65. DISCHARGE MEDICATIONS: 1. ProAir HFA 2 puffs q.6 hourly p.r.n. 2. Belbuca one fill b.i.d. 3. Lisinopril 20 mg daily. 4. Potassium chloride 20 mEq daily. 5. Catapres 0.1 mg b.i.d. 6. Ferrous sulfate 325 mg daily. 7. Neurontin 300 mg p.o. t.i.d. as per home dose. 8. Glucophage 500 mg p.o. b.i.d. 9. Zofran 4 mg q.6 hourly p.r.n. 10. Protonix 40 mg b.i.d. 11. Tramadol 50 mg b.i.d. p.r.n. CONTRAINDICATION: None. CODE STATUS: Full code. INPATIENT FEDERAL MEDIATOR: Dr. John did EGD. Dr. Bush did colonoscopy. TEST RESULTS PENDING ON DISCHARGE: None. ALLERGIES: CIPRO. DISCHARGE PLAN: Posthospital, the patient will follow up with primary care physician and Gastroenterology. HOSPITAL COURSE: This is a 63-year-old female with above-mentioned medical problem, who was admitted by Dr. Harp. She was admitted for upper GI bleed and anemia due to acute blood loss. She was hydrated with IV fluid while in the hospital. She was given total 3 units of blood transfusion while in hospital. Her hemoglobin subsequently remained stable. She had abnormal electrolytes, which was replaced while in hospital. As her hemoglobin dropped again, that is why Dr. Bush did a colonoscopy, which was showing only external hemorrhoid. Upper endoscopy showed duodenal ulcer with visible vessel, which was cauterized. We advised the patient to not to take any NSAID upon discharge. While in hospital, she had significant leg discomfort, that was reattributed to be due to her chronic neuropathic pain. We replaced electrolytes, and we advised her to continue all her previous medication. GI cleared her for discharge. We are starting physical therapy. Overall, the patient is medically stable for discharge. I spoke with the family member and updated about plan. As long as the patient is doing well, then she will be discharged later on today. Please see my progress note from today for further detail. Job ID: [id number]
[2018-11-25 11:51] VITALS: TEMP 98.6
[2018-11-25] MEDS ORDERED: Potassium Chloride 20 MEQ TAB PO SCH (12:00)
[2018-11-25 14:16] VITALS: BP 184/80
== END 2018-11-25 15:05 | disposition home or self-care (01) | DRG 378 ==
LOC: ERS 09:52 → IMCU/EMU 13:25 → ONC 11-23 10:25
PROVIDERS: ADMIT Internal Medicine; ATTEND Internal Medicine
PROC: 30233N1 Transfusion of Nonautologous Red Blood Cells into Peripheral Vein, Percutaneous Approach (ICD-10-PCS; 2018-11-22)
PROC: 0W3P8ZZ Control Bleeding in Gastrointestinal Tract, Via Natural or Artificial Opening Endoscopic (ICD-10-PCS; principal; 2018-11-24)
PROC: 0DJD8ZZ Inspection of Lower Intestinal Tract, Via Natural or Artificial Opening Endoscopic (ICD-10-PCS; 2018-11-24)
DX: K26.4 Chronic or unspecified duodenal ulcer with hemorrhage (principal); D62 Acute posthemorrhagic anemia; K64.4 Residual hemorrhoidal skin tags; E87.6 Hypokalemia; E83.42 Hypomagnesemia; E83.39 Other disorders of phosphorus metabolism; I10 Essential (primary) hypertension; E11.9 Type 2 diabetes mellitus without complications; M19.90 Unspecified osteoarthritis, unspecified site; E78.5 Hyperlipidemia, unspecified; Z87.11 Personal history of peptic ulcer disease; Z88.1 Allergy status to other antibiotic agents; Z79.84 Long term (current) use of oral hypoglycemic drugs; Z79.899 Other long term (current) drug therapy
CPT/HCPCS: 36415; 36416; 36430; 71045; 80048; 80053; 82274; 83735; 84100; 85025; 85610; 86850; 86900; 86901; 93005; 96365; 96374; 96375; C9113; J0171; J0360; J2001; J2270; J2405; J2704; J3010; J3475; J3480; J3490; J7050; P9016; Q0162

== ENCOUNTER 2018-12-24 18:37 | Inpatient (IN) | payer SELFPAY ==
[~2018-12-24 18:37] MED LIST: Heparin 1,000 UNITS/ML VIAL ONE
[2018-12-24 19:15] LABS: #Eosinphils 0.1 thou/uL (0.0-0.7); #Lymphocytes 2.4 thou/uL (1.20-3.40); #Monocytes 0.6 thou/uL (0.11-0.59); #Neutrophils 4.8 thou/uL (1.40-6.50); %Basophils 0.3 % (0.0-1.0); %Eosinophils 1.8 % (0.0-10.0); %Lymphocytes 30.2 % (21.0-51.0); %Monocytes 7.2 % (0.0-10.0); %Neutrophils 60.6 % (42.0-75.0); Hemoglobin 7.8 g/dL (12.0-16.0); Mean Corpuscular HGB CONC 32.6 g/dL (32.0-36.0); Mean Corpuscular Hemoglobin 28.5 pg (27.0-31.0); Mean Corpuscular Volume 87.5 fL (78.0-98.0); Mean Platelet Volume 7.8 fL (7.4-10.4); Platelet Count 380 thou/uL (130-400); RBC Distribution Width 14.7 % (11.5-14.5); Red Blood Cell (RBC) Count 2.72 mill/uL (4.20-5.40); White Blood Cell (WBC) Count 7.9 thou/uL (4.8-10.8)
[2018-12-24 19:34] LABS: ALT (SGPT) 11 U/L (8-55); AST (SGOT) 14 U/L (5-34); Alkaline Phosphatase 78 U/L (40-150); Anion Gap 13 mmol/L (10-20); BUN (Urea Nitrogen) 41 mg/dL (9.8-20.1); Bilirubin, Total 0.2 mg/dL (0.2-1.2); Calc. Creatinine Clearance 0 mL/min (70-130); Calcium 9.6 mg/dL (7.8-10.44); Carbon Dioxide 20 mmol/L (23-31); Chloride 109 mmol/L (98-107); Estimated GFR-MDRD 42; Globulin 2.8 g/dL (2.4-3.5); Glucose 111 mg/dL (80-115); Potassium 3.9 mmol/L (3.5-5.1); Protein, Total 6.8 g/dL (6.0-8.3); Sodium 138 mmol/L (136-145)
[2018-12-24] MEDS ORDERED: Pantoprazole 80 MG, Admixture Fee 1 EACH in Sodium Chloride 0.9% 100 ML IVPB SCH (20:30)
[2018-12-24] MEDS ORDERED: Dextrose 50% Abboject 50 ML SYRINGE SLOW IVP PRN (21:36)
[2018-12-24] MEDS ORDERED: Dextrose 5% in Water 1,000 ML IV PRN (21:36)
[2018-12-24] MEDS ORDERED: Insulin Regular 300 UNITS/3 ML VIAL SC PRN ×2 (21:36)
[2018-12-24] MEDS ORDERED: Calcium Carbonate 500 MG ChewTAB PO PRN (21:39)
[2018-12-24] MEDS ORDERED: Ondansetron PF 4 MG/2 ML Vial IVP PRN (21:39)
[2018-12-24] MEDS ORDERED: Ondansetron ODT 4 MG TAB PO PRN (21:39)
[2018-12-24] MEDS ORDERED: Acetaminophen 325 MG TAB PO PRN (21:39)
[2018-12-24] MEDS ORDERED: Pantoprazole 80 MG in Sodium Chloride 0.9% 100 ML IVP SCH (21:45)
[2018-12-24] MEDS ORDERED: PROVENTIL INHALER 6.7 G (200 INHALATIONS) INH PRN (21:47)
[2018-12-24] MEDS ORDERED: traMADol HCl 50 MG TAB PO PRN (21:47)
[2018-12-24] MEDS ORDERED: tiZANidine HCl 4 MG TAB PO PRN (21:47)
--- NOTE | 2018-12-24 22:01 | HP ---
PRIMARY CARE: [facility]. CHIEF CONCERN: Rectal bleeding. HISTORY OF PRESENT ILLNESS: The patient is a 63-year-old female with recent diagnosis of peptic ulcer disease, status post EGD, presented to the emergency room with rectal bleeding that started yesterday. She was hospitalized at this facility twice in the last 2 months for similar complaint. She had a recent EGD and colonoscopy as well. She is currently on Protonix 40 mg twice a day. She is not on any antiplatelet or NSAIDs. Over the last 2 days, the patient has intermittent bloody stool. It is dark red in color. The patient has been feeling generally weak. No nausea, vomiting, or diarrhea. She has not been eating well and states that she may have lost approximately 20 pounds over the last month or so. She also had some vague left upper abdominal discomfort, more or less crampy. She denies any syncope, chest pain, or palpitations. In the emergency room, initial vital signs showed temperature 99.3, respirations 18, pulse rate of 90, and blood pressure of 134/70 with O2 saturation 97% on room air. She has been started on IV fluids as well as Protonix drip. Hemoglobin today was 7.8 compared to 8.6 last month. Her lowest hemoglobin last month was 4.5. She received a total of 5 units of PRBC recently. PAST MEDICAL HISTORY: 1. Peptic ulcer disease with hospitalization for GI bleeding. 2. Anemia requiring blood transfusion last month. 3. Diabetes mellitus type 2. 4. Chronic pain syndrome. 5. Hypertension. 6. Dyslipidemia. 7. Diabetic neuropathy. 8. Restless legs syndrome. 9. Degenerative joint disease. PAST SURGICAL HISTORY: 1. Cholecystectomy. 2. Hysterectomy. 3. Multiple EGDs recently. 4. Colonoscopy. ALLERGIES: THE PATIENT IS ALLERGIC TO CIPROFLOXACIN. CURRENT HOME MEDICATION: Confirmed with the patient; 1. Albuterol inhaler as needed. 2. Buprenorphine one film buccal b.i.d. 3. Gabapentin 900 mg three times a day. 4. Lisinopril 20 mg daily. 5. Potassium chloride 20 mEq daily. 6. Tizanidine as needed. 7. Clonidine 0.1 b.i.d. 8. Ferrous sulfate 325 mg daily. 9. Metformin 500 mg b.i.d. 10. Zofran as needed. 11. Protonix 40 mg b.i.d. 12. Tramadol as needed. SOCIAL HISTORY: The patient currently lives at home. Daughter is the next of kin. No alcohol, tobacco, or drug use. She makes her own decision with the help of her family. FAMILY HISTORY: Negative for diabetes, hypertension, and heart disease. REVIEW OF SYSTEMS: The patient overall feels generally weak. Denies any other symptoms. All other review of systems were reviewed and were found negative. PHYSICAL EXAMINATION: VITAL SIGNS: As discussed above. GENERAL: A 63-year-old female with generalized weakness. No active bleeding. HEENT: Head, atraumatic and normocephalic. Sclerae anicteric. Dry mucous membranes. Conjunctival pallor noted. No oral lesion. NECK: Supple. No JVD. No carotid bruit. LUNGS: Clear to auscultation bilaterally. No wheezing, rales, or rhonchi. HEART: S1 and S2 present. Regular rate and rhythm. No murmurs, rubs, or gallops appreciated. ABDOMEN: Soft, mild tenderness in the left upper quadrant. No rebound or guarding. No costovertebral angle tenderness. EXTREMITIES: No edema or calf tenderness. NEUROLOGIC: Grossly nonfocal. Moves all 4 extremities. Power was 5/5 in all extremities. Tone in normal range. PSYCHIATRY: Alert, awake, and oriented x3. SKIN: Warm and dry. LYMPH NODES: No palpable lymph nodes in the neck. Peripheral vascular radial pulses palpable bilaterally, equal volume. MUSCULOSKELETAL: No joint swelling or tenderness. LABORATORY FINDINGS: Hemoglobin 7.8, hematocrit 23.8, and WBC 7.9. Sodium 138, potassium 3.9, chloride 109, bicarb 20, BUN 41, and creatinine 1.27. Creatinine last admission was 0.6. Troponin was negative. LFTs in normal range. Stool for occult blood in the emergency room was positive. Chest x-ray from last admission by my review was negative for acute findings. Telemetry monitoring by my review showed sinus rhythm. IMPRESSION: 1. Acute gastrointestinal bleeding probably secondary to peptic ulcer disease. 2. Recent hospitalization for gastrointestinal bleeding from peptic ulcer disease. 3. Acute blood loss anemia with recent blood transfusions. 4. Acute kidney injury probably secondary to hypovolemia and angiotensin-converting enzyme inhibitor induced. 5. Diabetes mellitus type 2 with diabetic neuropathy. 6. Chronic pain syndrome. 7. Hypertension. 8. Dyslipidemia. 9. Weight loss of 20 pounds in the last month per the patient report. 10. Quinolone allergy. PLAN: The patient will be monitored on the medical floor. Protonix drip will be continued. We will keep her n.p.o. past midnight for possible intervention. Consult GI. Monitor H and H closely. Avoid nephrotoxic agent. Hold metformin and lisinopril. Resume selected home medications. Orthostatic vitals daily. Recheck basic metabolic profile in a.m. The patient will require 2 to 3 days for stabilization. Plan of care was discussed with the patient and the family at the bedside. They stated understanding. Job ID: [id number]
[2018-12-24 22:21] LABS: PTT 30.2 SEC (22.9-36.1); Prothrombin Time 13.2 SEC (12.0-14.7)
[2018-12-24] MEDS: Dextrose 5 %-0.45 % NaCl 1,000 ML IV SCH (22:40)
[2018-12-25] MEDS ORDERED: Pantoprazole 80 MG in Sodium Chloride 0.9% 100 ML IVPB SCH (06:00)
[2018-12-25] MEDS: Dextrose 5 %-0.45 % NaCl 1,000 ML IV SCH ×2 (06:34→16:42)
[2018-12-25 06:41] LABS: #Eosinphils 0.2 thou/uL (0.0-0.7); #Lymphocytes 2.7 thou/uL (1.20-3.40); #Monocytes 0.4 thou/uL (0.11-0.59); #Neutrophils 2.8 thou/uL (1.40-6.50); %Basophils 0.4 % (0.0-1.0); %Eosinophils 2.9 % (0.0-10.0); %Lymphocytes 44.2 % (21.0-51.0); %Monocytes 6.6 % (0.0-10.0); %Neutrophils 45.9 % (42.0-75.0); Hemoglobin 6.8 g/dL (12.0-16.0); Mean Corpuscular HGB CONC 32.2 g/dL (32.0-36.0); Mean Corpuscular Hemoglobin 28.5 pg (27.0-31.0); Mean Corpuscular Volume 88.5 fL (78.0-98.0); Mean Platelet Volume 7.6 fL (7.4-10.4); Platelet Count 321 thou/uL (130-400); RBC Distribution Width 14.6 % (11.5-14.5)
[2018-12-25 07:03] LABS: Anion Gap 9 mmol/L (10-20); BUN (Urea Nitrogen) 26 mg/dL (9.8-20.1); Calc. Creatinine Clearance 61 mL/min (70-130); Calcium 8.4 mg/dL (7.8-10.44); Carbon Dioxide 19 mmol/L (23-31); Chloride 112 mmol/L (98-107); Estimated GFR-MDRD 68; Glucose 144 mg/dL (80-115); Magnesium 1.5 mg/dL (1.6-2.6); Phosphorus 3.3 mg/dL (2.3-4.7); Potassium 3.8 mmol/L (3.5-5.1); Sodium 136 mmol/L (136-145)
[2018-12-25] MEDS ORDERED: Diabetic Tussin 200 MG/10 ML UDCUP PO PRN (07:29)
[2018-12-25] MEDS ORDERED: Loperamide HCl 2 MG CAP PO PRN (07:29)
[2018-12-25] MEDS ORDERED: HYDROcodone/Acetaminophen 5/325 mg Tablet PO PRN (07:29)
[2018-12-25] MEDS ORDERED: Zolpidem Tartrate 5 MG TAB PO PRN ×2 (07:29→21:00)
[2018-12-25] MEDS ORDERED: Bisacodyl 10 MG SUPP PR PRN (07:29)
[2018-12-25] MEDS ORDERED: Eucerin (Mineral Oil/Petrolatum,White) 30 gm Jar TOP PRN (07:29)
[2018-12-25] MEDS ORDERED: Artificial Tears 18 DROP/0.9 ML EA EYE PRN (07:29)
[2018-12-25] MEDS ORDERED: Loratadine 10 MG TAB PO PRN (07:29)
[2018-12-25] MEDS ORDERED: Senokot S 8.6-50 MG TAB PO PRN (07:29)
[2018-12-25] MEDS ORDERED: Sodium Chloride 0.65% Nasal 44 ML BOT EA NARE PRN (07:29)
[2018-12-25] MEDS ORDERED: Cepastat Lozenges 1 LOZ PO PRN (07:29)
[2018-12-25] MEDS ORDERED: hydrALAZINE 20 MG/ML VIAL SLOW IVP PRN (07:29)
[2018-12-25] MEDS ORDERED: Magnesium Sulfate 3 GM in Sodium Chloride 0.9% 100 ML IVPB SCH (08:00)
[2018-12-25] MEDS: Gabapentin 300 MG CAP PO SCH ×2 (08:11→17:27)
[2018-12-25] MEDS: cloNIDine 0.1 MG TAB PO SCH (08:11)
[2018-12-25] MEDS ORDERED: Ascorbic Acid 500 mg Chewable Tablet PO SCH (09:00)
--- NOTE | 2018-12-25 10:37 | PDOC.PN ---
- Subjective Encounter Start Date: 12/25/18 Encounter Start Time: 09:30 -: old records requested/rev pt came with allan, and low Hb, she denies NSAID use, she takes protonix, this is her 3rd admission - Objective Resuscitation Status - Order Detail: 12/24/18 21:39 Resuscitation Status Routine Resuscitation Status: FULL: Full Resuscitation MAR Reviewed: Yes Vital Signs & Weight: Vital Signs (12 hours) Temp Pulse Pulse Resp BP BP BP 12/25/18 09:13 98.1 F 73 18 146/87 H 12/25/18 08:11 146/87 H 12/25/18 08:00 98.5 F 70 16 152/83 H 12/25/18 07:25 98.1 F 73 18 146/87 H 12/25/18 04:00 97.8 F 67 16 99/60 12/24/18 23:54 98.4 F 77 16 130/72 Pulse Ox 12/25/18 09:13 99 12/25/18 08:11 12/25/18 08:00 98 12/25/18 07:25 99 12/25/18 04:00 97 12/24/18 23:54 98 Weight Weight 125 lb 3.2 oz I&O: 12/24/18 12/25/18 12/26/18 06:59 06:59 06:59 Intake Total 1625.6 0 Balance 1625.6 0 Result Diagrams: 12/25/18 06:03 12/25/18 06:03 Additional Labs: Accuchecks 12/25/18 12/25/18 12/24/18 04:12 00:23 22:39 POC Glucose 149 H 153 H 121 H Phys Exam - Physical Examination Constitutional: NAD HEENT: PERRLA, moist MMs, sclera anicteric Neck: no JVD, supple Respiratory: no wheezing, no rales, no rhonchi Cardiovascular: RRR, no significant murmur, no rub Gastrointestinal: soft, non-tender, no distention, positive bowel sounds Musculoskeletal: no edema, pulses present Neurological: non-focal, normal sensation, moves all 4 limbs Lymphatic: no nodes Psychiatric: normal affect, A&O x 3 Skin: no rash, normal turgor Dx/Plan (1) Upper GI bleed Code(s): K92.2 - GASTROINTESTINAL HEMORRHAGE, UNSPECIFIED Status: Acute (2) Anemia due to acute blood loss Code(s): D62 - ACUTE POSTHEMORRHAGIC ANEMIA Status: Acute (3) Hypomagnesemia Code(s): E83.42 - HYPOMAGNESEMIA Status: Acute (4) Chronic pain disorder Code(s): G89.4 - CHRONIC PAIN SYNDROME Status: Chronic (5) Diabetes type 2, controlled Code(s): E11.9 - TYPE 2 DIABETES MELLITUS WITHOUT COMPLICATIONS Status: Chronic (6) Dyslipidemia Code(s): E78.5 - HYPERLIPIDEMIA, UNSPECIFIED Status: Chronic (7) HTN (hypertension) Code(s): I10 - ESSENTIAL (PRIMARY) HYPERTENSION Status: Chronic Qualifiers: (8) Neuropathic pain Status: Chronic (9) Obesity (BMI 30.0-34.9) Code(s): E66.9 - OBESITY, UNSPECIFIED Status: Chronic (10) PUD (peptic ulcer disease) Code(s): K27.9 - PEPTIC ULC, SITE UNSP, UNSP AC OR CHR, W/O HEMOR OR PERF Status: Chronic (11) Restless leg syndrome Status: Chronic - Plan cont current plan of care, plan discussed w/ family * transfuse 1 unit PRBC * repeat labs tomorrow * GI consulted * check gastrin level tomorrow * discussed with family * medication reviewed as below * symptomatic treatment. * continue protonix * replace magnesium Review of Systems - Review of Systems Constitutional: weakness. negative: fever, chills, sweats, malaise, other ENT: negative: Ear Pain, Ear Discharge, Nose Pain, Nose Discharge, Nose Congestion, Mouth Pain, Mouth Swelling, Throat Pain, Throat Swelling, Other Respiratory: negative: Cough, Dry, Shortness of Breath, Hemoptysis, SOB with Excertion, Pleuritic Pain, Sputum, Wheezing Cardiovascular: negative: chest pain, palpitations, orthopnea, paroxysmal nocturnal dyspnea, edema, light headedness, other Gastrointestinal: Melena. negative: Nausea, Vomiting, Abdominal Pain, Diarrhea , Constipation, Hematochezia, Other Genitourinary: negative: Dysuria, Frequency, Incontinence, Hematuria, Retention , Other Musculoskeletal: negative: Neck Pain, Shoulder Pain, Arm Pain, Back Pain, Hand Pain, Leg Pain, Foot Pain, Other Skin: negative: Rash, Lesions, Joe, Bruising, Other - Medications/Allergies Allergies/Adverse Reactions: Allergies Allergy/AdvReac Type Severity Reaction Status Date / Time ciprofloxacin Allergy Verified 11/06/18 19:36 Medications: Current Medications Acetaminophen (Tylenol) 650 mg PO Q4H PRN PRN Reason: Headache/Fever/Mild Pain (1-3) Hydrocodone Bitart/Acetaminophen ([place] 5/325) 1 tab PO Q4H PRN PRN Reason: Moderate Pain (4-6) Albuterol Sulfate (Proventil Hfa) 2 puff INH PRN PRN PRN Reason: SOB/wheezing Artificial Tears (Tears Naturale) 2 drop EA EYE PRN PRN PRN Reason: Dry Eyes Ascorbic Acid (Vitamin C) 1,000 mg PO DAILY [facility] Last Admin: 12/25/18 08:11 Dose: 1,000 mg Bisacodyl (Dulcolax) 10 mg LA DAILYPRN PRN PRN Reason: Constipation Calcium Carbonate (Tums) 1,000 mg PO Q4H PRN PRN Reason: Heartburn or Indigestion Clonidine (Catapres) 0.1 mg PO Q4H PRN PRN Reason: SBP Greater Than 180 Clonidine (Catapres) 0.1 mg PO BID [facility] Last Admin: 12/25/18 08:11 Dose: 0.1 mg Dextrose/Water (Dextrose 50%) 25 gm SLOW IVP PRN PRN PRN Reason: Hypoglycemia Gabapentin (Neurontin) 900 mg PO TID [facility] Last Admin: 12/25/18 08:11 Dose: 900 mg Glucagon (Glucagon) 1 mg IM PRN PRN PRN Reason: Hypoglycemia Guaifenesin (Robitussin Sf) 200 mg PO Q4H PRN PRN Reason: Cough Hydralazine HCl (Apresoline) 10 mg SLOW IVP Q4H PRN PRN Reason: SBP > 180 and HR < 70 Dextrose/Water (D5w) 1,000 mls @ 0 mls/hr IV .Q0M PRN PRN Reason: Hypoglycemia Dextrose/Sodium Chloride (D5 1/2 Ns) 1,000 mls @ 125 mls/hr IV .Q8H [facility] Last Admin: 12/25/18 06:34 Dose: 1,000 mls Pantoprazole Sodium 80 mg/ (Sodium Chloride) 100 mls @ 10 mls/hr IVPB INF [facility] Last Admin: 12/25/18 06:36 Dose: 100 mls Insulin Human Regular (Humulin R) 0 units SC .BEDTIME SLIDING SC PRN PRN Reason: Bedtime Correctional Scale Insulin Human Regular (Humulin R) 0 units SC .MILD SLIDING SCALE PRN PRN Reason: Mild Correctional Scale Loperamide HCl (Imodium) 2 mg PO PRN PRN PRN Reason: Diarrhea/Loose Stools Loratadine (Claritin) 10 mg PO DAILYPRN PRN PRN Reason: Sinus Symptoms Mineral Oil/White Petrolatum (Eucerin Cream) 0 gm TOP BIDPRN PRN PRN Reason: Dry Skin (Buprenorphine Hcl [ (Belbuca] 1 Film)) 1 film BUC BID [place]AN[place] Ondansetron HCl (Zofran Odt) 4 mg PO Q6H PRN PRN Reason: Nausea/Vomiting Ondansetron HCl (Zofran) 4 mg IVP Q6H PRN PRN Reason: Nausea/Vomiting Senna/Docusate Sodium (Senokot S) 2 tab PO BID PRN PRN Reason: Constipation Sodium Chloride (Flush - Normal Saline) 10 ml IVF PRN PRN PRN Reason: Saline Flush Sodium Chloride ([place] Nasal [place] 0.65%) 0 ml EA NARE QIDPRN PRN PRN Reason: Nasal Congestion Throat Lozenges (Cepastat Lozenges) 1 tyler PO Q2H PRN PRN Reason: Sore Throat Tizanidine HCl (Zanaflex) 2 mg PO QID PRN PRN Reason: Muscle Spasm Last Admin: 12/25/18 02:08 Dose: 2 mg Tramadol HCl (Ultram) 50 mg PO BID PRN PRN Reason: Pain 4-6 Last Admin: 12/25/18 02:08 Dose: 50 mg Zolpidem Tartrate (Ambien) 5 mg PO HSPRN PRN PRN Reason: Insomnia
[2018-12-25] MEDS ORDERED: PROPOFOL 200 MG/20 ML VIAL ONE ×2 (11:59→12:00)
[2018-12-25] MEDS ORDERED: EPINEPHrine 1 MG/10 ML Abboject SYRINGE ONE (11:59)
[2018-12-25] MEDS ORDERED: Lidocaine 1% PF 5 ML VIAL ONE ×2 (11:59→12:00)
[2018-12-25] MEDS ORDERED: Labetalol HCl 100 MG/20 ML VIAL ONE (11:59)
[2018-12-25] MEDS ORDERED: Metoclopramide HCl 10 MG/2 ML VIAL ONE (12:00)
[2018-12-25] MEDS ORDERED: ePHEDrine 50 MG/ML VIAL ONE (12:00)
[2018-12-25] MEDS ORDERED: Succinylcholine Chloride 20 MG/ML 10 ml SYRINGE FS ONE (12:00)
[2018-12-25] MEDS ORDERED: Ondansetron PF 4 MG/2 ML Vial ONE ×2 (12:00→15:20)
[2018-12-25] MEDS ORDERED: Rocuronium Bromide 10 MG/ML (10ML VIAL) ONE (12:00)
[2018-12-25] MEDS ORDERED: PHENYLEPHRINE-NS 100 MCG/ML 10 ML SYRINGE ONE (12:00)
[2018-12-25] MEDS ORDERED: Glycopyrrolate 0.2 MG/ML 5 ML SYRINGE ONE (12:00)
[2018-12-25 12:46] LABS: Hemoglobin 8.8 g/dL (12.0-16.0)
[2018-12-25] MEDS ORDERED: Morphine 2 MG/ML SYRINGE ONE (14:08)
[2018-12-25] MEDS ORDERED: Promethazine HCl 25 MG/ML VIAL SLOW IVP PRN ×2 (15:21→21:00)
[2018-12-25] MEDS ORDERED: Ondansetron HCl/PF 4 MG/2 ML Vial IVP PRN ×2 (15:21→21:00)
[2018-12-25] MEDS ORDERED: Promethazine HCl 25 MG/ML VIAL IM PRN ×3 (15:21→21:00)
[2018-12-25] MEDS ORDERED: Fentanyl 100 MCG/2 ML VIAL ONE ×2 (15:29→15:47)
--- NOTE | 2018-12-25 15:59 | CON ---
DATE OF CONSULTATION: REASON FOR CONSULT: Suspected GI bleed. HISTORY OF PRESENT ILLNESS: Ms. Qureshi is a pleasant 63-year-old female, who has previously been in this hospital with upper GI hemorrhage from duodenal ulcer in 2016 showed a shallow ulcer over the gastric antrum and gastritis found by Dr. Harper, who was treated with Protonix. Initially she presented in July of 2018, at which time, she had multiple ulcers in the antrum with clean base and large ulcer in the pyloric channel as well as a necrotic ulcer in the apex of the bulb. She was found to have gastric ulcers. Again, a pyloric channel ulcer, large duodenal bulb ulcer with visible vessel. It was treated with epinephrine injection, heater probe cautery. She re-presented in about a month later on 11/22, she was felt to have an ulcer. She was felt to have GI bleed again and had an EGD with 5 to 6 mm clean based ulcer in the posterior portion of duodenal bulb and duodenal sweep with some friability and oozing. This was injected and cauterized at the margin with a 10-[place] heater probe. At that admission, she also underwent a colonoscopy by Dr. Harper on 11/24 to make sure she was not having a lower GI bleeding source, and this was negative. She was discharged on 11/25 on a PPI b.i.d. She reports that yesterday she had a bowel, that was black and tarry, when she moved it around, there was some red blood there. This happened once again this morning. Her hemoglobin was noted to drop as well and she is getting a unit of blood now. She denies any yihp-[id number] NSAID. She states she is only taking her prescribed narcotic pain pills for arthritis as well as Ultram as needed and gabapentin. She reports she is taking Protonix once daily. She has felt weak. She has had no nausea or vomiting. No chest pain. No shortness of breath. No dyspnea. She has had poor appetite over the last several months and has lost weight. She has some vague left lower abdominal crampiness before bowel movements. In the emergency room showed a temperature of 99, pulse of 90, and a blood pressure 134/70 on admission. Her hemoglobin has been monitored. Her hemoglobin was 8.6 on previous admission , 7.8 yesterday, today it dropped down to 6.8. When she was here last month, her hemoglobin got as low as 4.5. She received a 5 unit transfusion. Presently, she has had no further problems today. She is getting a transfusion. She has a Protonix drip going. PAST MEDICAL HISTORY: Peptic ulcer disease dating back to March of 2016. This has initially felt to be related to NSAID use or possibly noncompliance of her PPIs. She has had a CAT scan in July of 2018 with no abdominal masses or lesions. Type 2 diabetes, chronic pain with arthritis in her legs, hypertension, dyslipidemia, diabetic neuropathy, restless legs, and degenerative joint disease. PAST SURGICAL HISTORY: Cholecystectomy, hysterectomy, and endoscopies as noted above. ALLERGIES: CIPROFLOXACIN. MEDICATIONS: At home; 1. Albuterol inhaler. 2. Buprenorphine buccal film b.i.d. 3. Gabapentin 900 t.i.d. 4. Lisinopril 20 mg daily. 5. Potassium. 6. Tizanidine. 7. Clonidine. 8. Ferrous sulfate daily. 9. Metformin. 10. Zofran. 11. Protonix. 12. Tramadol. SOCIAL HISTORY: The patient lives at home. Presently, her and daughter at the bedside. Does not smoke, drink, or use drugs. FAMILY HISTORY: Negative for diabetes, hypertension, heart disease, ulcer disease, or pancreatic malignancies. REVIEW OF SYSTEMS: The patient feels weak. She is not nauseated. She has no chest pain. No dyspnea. She does have poor appetite and has had poor appetite for several months, reporting a 20 pounds weight loss over the past few months. PRESENT MEDICATIONS: 1. Tylenol. 2. Proventil. 3. Vitamin C. 4. Dulcolax. 5. Tums. 6. Catapres. 7. D5 half-normal at 125. 8. Dextrose p.r.n. 9. Neurontin. 10. Hydrocodone p.r.n. 11. Insulin sliding scale. 12. Imodium. 13. Claritin. 14. Eucerin cream. 15. Zofran p.r.n. 16. Protonix drip. 17. Throat lozenges. 18. Tizanidine. 19. Tramadol. 20. Ambien p.r.n. PHYSICAL EXAMINATION: GENERAL: She is very thin. She is resting in bed while daughter and at bedside. She is in no distress, but she is alert and oriented to person, place , and time. She can answer some questions. VITAL SIGNS: Temperature is 98.1, pulse is 70, blood pressure 146/87, respirations 18, and saturations 99% on room air. HEENT: She has had pale conjunctivae. Sclerae clear. NECK: Supple without any adenopathy. LUNGS: Clear. HEART: Regular rate and rhythm without clicks, rubs, or murmurs. ABDOMEN: Soft and nontender without rebound or guarding. EXTREMITIES: No clubbing, cyanosis, or edema. LABORATORY STUDIES: This morning, hemoglobin was 6.8, white count was 6, and platelet count was 321. Yesterday, hemoglobin was 7.8 and on 11/25, it was 8.6. INR is 1. BUN and creatinine are 26 and 0.84. Yesterday, her BUN was 41 and creatinine was 1.27. On 11/25, her BUN was 5. ASSESSMENT: Recurrent gastrointestinal bleeding with drop in hemoglobin and melena, history of ulcers dated back 2015 with recurrence in 07/2018. Now she has come in 4 times this year with bleeding from this ulcer the last time ( November 2018) she had a strictured area with ulceration that was treated with injection and cautery. She has overt melena and drop of Hb with increased BUN all consistent with acute bleeding. She has been taking her ppi bid . She has been avoiding nsaids per pt and family. RECOMMENDATIONS: 1. Transfuse as you are doing. 2. Continue Protonix drip. 3. EGD today. 4. She probably should be evaluated with serum gastrin and imaging for possible to rule out a gastrinoma. We will discuss this with Dr. Harper tomorrow as he may have done testing for this before or may have other reasons for recurrent ulceration. Job ID: [id number] [facility]
--- NOTE | 2018-12-25 16:31 | CT ---
CT Abdomen WO Con 12/25/2018 3:44 PM HISTORY: Abdominal pain. Perforated duodenal ulcer. COMPARISON: None. FINDINGS: This examination is limited for the evaluation of solid organs and vascular structures due to the lac k of intravenous contrast. Lower Chest: Linear bibasilar atelectasis is present. No pleural effusion is identified. Abdomen: Liver: within normal limits. Gallbladder: Not visualized and likely surgically absent. Pancreas: within normal limits. Spleen: within normal limits. Adrenals: within normal limits. Kidneys: A 3 mm nonobstructing calculus is seen in the inferior pole right kidney with 4 mm nonobstru cting calculus in the inferior pole left kidney. A subcentimeter too small to characterize hypodense lesion is seen in the superior pole right kidney with small exophytic too small to characte rize hypodense lesion posterior aspect inferior pole right kidney. No hydronephrosis is present. Lymph Nodes: No enlarged lymph nodes. Bowel: Normal caliber. Peritoneum/retroperitoneum: There is a small gas collection seen adjacent to the second portion of th e duodenum in the retroperitoneum worrisome for perforation of the duodenum especially given patient's clinical history. No significant fluid is seen in this region. No intraperitoneal free gas is seen, and there is no free fluid. Vessels: Vascular calcifications are seen in the abdominal aorta and in the limited visualized garcia ry arteries.. Abdominal Wall: Tiny fat-containing umbilical hernia is present. Bones: within normal limits. IMPRESSION: 1. Gas collection in the retroperitoneum adjacent to the second portion of the duodenum worrisome for perforation of the duodenum especially given patient's clinical history. 2. Nonobstructing bilateral renal calculi with subcentimeter too small to characterize hypodense lesi ons in the right kidney. 3. Above findings concerning evidence of perforation of the duodenum were discussed with Dr. Juan Alberto gar 12/25/2018 at 1623 hours.
[2018-12-25] MEDS ORDERED: cefOXitin 2 GM VIAL ONE (17:26)
[2018-12-25] MEDS ORDERED: Sodium Chloride 0.9% 100 ML ONE (17:27)
--- NOTE | 2018-12-25 17:35 | CON ---
DATE OF CONSULTATION: 12/25/2018 CHIEF COMPLAINT: Perforation. HISTORY OF PRESENT ILLNESS: This is a 63-year-old female with a history of a duodenal ulcer, that had recurrent bleeding and nonhealing over the course of the last few months. She has been taking Protonix twice a day with no significant improvement. She now presents after EGD and treatment of this ulcer again. Postoperative severe pain described as 10/10, sharp on her right side, associated with nausea, no vomiting. She is hemodynamically stable, but has the severe pain. CT scan shows perforation with retroperitoneal free air. PAST MEDICAL HISTORY: Includes: 1. Peptic ulcer disease, severe, recurrent, with chronic anemia associated with number #1. 2. Diabetes mellitus, type 2. 3. Chronic pain syndrome. 4. Hypertension. 5. Dyslipidemia. 6. Diabetic neuropathy. 7. Restless legs. 8. Degenerative joints. PAST SURGICAL HISTORY: Includes cholecystectomy, hysterectomy, multiple EGDs, and colonoscopy. ALLERGIES: SHE IS ALLERGIC TO CIPRO. MEDICATIONS: Medicines at home: 1. Albuterol. 2. . 3. Gabapentin. 4. Lisinopril. 5. Potassium. 6. Tizanidine. 7. Clonidine. 8. Ferrous sulfate. 9. Metformin. 10. Zofran. 11. Protonix. 12. Tramadol. SOCIAL HISTORY: Lives at home with her daughter. No smoking, alcohol, or other drugs. REVIEW OF SYSTEMS: Otherwise, negative unless described above PHYSICAL EXAMINATION: VITAL SIGNS: Pulse is 73, blood pressure 143/83, respirations 20. HEENT: Sclerae are anicteric. Oropharynx is clear. NECK: No lymphadenopathy. CHEST: Clear. HEART: Regular rate and rhythm. ABDOMEN: Soft. Tender in the right abdomen with guarding. She has a well-healed right subcostal incision without hernia. EXTREMITIES: No ischemia or edema to extremities. LABORATORY DATA: White blood cell count is 6, hemoglobin 8.8, platelet count is 321. Sodium 136, potassium 3.8, creatinine 0.84, glucose was 144. CT scan shows retroperitoneal free air, second portion of duodenum. ASSESSMENT: 1. Perforated duodenum in the setting of a recurrent nonhealing duodenal ulcer. 2. Diabetes mellitus. PLAN: She is going to need operative intervention today plus or minus antrectomy with gastrojejunostomy plus or minus vagotomy. I expect significant scar tissue in the area given her history of open gallbladder. Risks, benefits, and alternatives were discussed with the family. Risks specific to bleeding, infection, scarring, hernia, recurrent stenosis at gastro-J as well as duodenal stump leak. They do give consent. We will do this today. Job ID: [id number]
[2018-12-25] MEDS ORDERED: Midazolam HCl 2 mg/2 ml Vial ONE (18:01)
[2018-12-25] MEDS ORDERED: Fentanyl 250 MCG/5 ML VIAL ONE (18:34)
--- NOTE | 2018-12-25 18:59 | PRG ---
DATE OF SERVICE: 12/25/2018 SUBJECTIVE: After Ms. Qureshi's endoscopy, she had abdominal pain in the recovery room that it would not denise. We took her for an emergent noncontrast CT, which showed free air in the area of the duodenum and upper abdomen. This is very concerning for perforation. I have asked Dr. Ramos Morgan to see the patient. I reviewed the films with Radiology. This does seem to be an overt perforation as there is no contrast or free fluid in the abdomen. One option would be to manage this conservatively with IV antibiotics, n.p.o. status, NG suction, however, with her history of recurrent ulcers in this area and stricture in this area as well as active bleeding also had to be cauterized at this endoscopy. I think that would be followed with risks of infection and recurrent bleeding. Additionally, I think a lot of early satiety and weight loss are probably due to the fact that she has had a significant stricture in that region, which has caused early satiety and not feel really eat very much. I have discussed with the patient and the family and we brought her back down today to stay with plan for laparotomy for definitive therapy for the perforation and her recurrent ulcer disease. Job ID: [id number]
[2018-12-25] MEDS ORDERED: SUGAMMADEX SODIUM 200 MG/2 ML VIAL ONE (20:41)
[2018-12-25] MEDS ORDERED: HYDROmorphone 2 MG/ML VIAL ONE ×2 (20:59→21:26)
[2018-12-25] MEDS ORDERED: Naloxone HCl 0.4 mg/ml Vial IV PRN (21:00)
[2018-12-25] MEDS ORDERED: HYDROmorphone 2 MG/ML VIAL SLOW IVP PRN (21:00)
[2018-12-25] MEDS ORDERED: diphenhydrAMINE 50 MG/ML VIAL IM PRN (21:00)
[2018-12-25] MEDS ORDERED: Ondansetron PF 4 MG/2 ML Vial IVP PRN (21:00)
[2018-12-25] MEDS ORDERED: Communication Order-Pharmacy FS SCH (21:00)
[2018-12-25] MEDS ORDERED: Sodium Chloride 0.9% 10 ML ONE (21:12)
--- NOTE | 2018-12-25 21:29 | OP ---
DATE OF PROCEDURE: 12/25/2018 PREOPERATIVE DIAGNOSIS: Perforated duodenal ulcer with stricture. POSTOPERATIVE DIAGNOSIS: Perforated duodenal ulcer with stricture. PROCEDURES: Antrectomy, gastrojejunostomy, central line. ANESTHESIA: General. ESTIMATED BLOOD LOSS: 50 mL. COMPLICATIONS: None. FINDINGS: Severe stenosis posterior in first portion of duodenum with stricture between first and second portions. DESCRIPTION OF PROCEDURE: The patient was taken to the operating room and laid supine on the operating room table. After general anesthetic was obtained, a Barnard was placed. The abdomen was prepped and draped in a sterile fashion. Midline incision was made from xiphoid to umbilicus. Abdomen was entered. Multiple adhesions were taken down from post abdominal wall. Gastrocolic ligament was entered into the lesser sac. Stomach was mobilized past the incisura down towards the liver. There was some old adhesions from prior cholecystectomy that were taken down. A Ramila maneuver was used to bring the first portion of the duodenum up out of the retroperitoneum. A pocket of air was entered when doing this. There was no significant contamination. The ulcer was in the first portion of duodenum, very stuck posteriorly. Very carefully, this was dissected off the top of the pancreas. A LIZA stapler was fired across just past the duodenal bulb, just past the stricture. Multiple loads were fired along the greater curve toward the incisura to completely remove the antrum of the stomach. Trini anti-bleeding starch was placed up in the right upper quadrant. There was no ongoing bleeding. A 19 round drain was brought out through a right upper quadrant. 30 cm down from ligament of Treitz, loop of intestine was brought up through the bare area of the transverse mesocolon and a gastrojejunostomy was performed using one fire of the 60 stapler. The common enterotomy was closed using running 2-0 Vicryl followed by pop-off silk sutures. There was no stenosis here. The posterior window mesenteric defect was then closed using silk pop offs. The abdomen was irrigated. All instrument counts, needle counts, and lap counts were correct. PDS was used to close the fascial defect from the top to the bottom and tied in the middle. Subcutaneous tissues were irrigated. The skin was closed loosely using skin hannah. Telfa young were placed in between the hannah. Next, the right neck was prepped and draped in a sterile fashion. Local anesthetic was infiltrated over the right internal jugular vein. Internal jugular vein cannulated using a 22-gauge finder needle, followed by a Seldinger needle. Wire was passed into the superior vena cava and small brian was made at the wire entrance site. The wire was used to guide to dilate the internal jugular vein. Triple-lumen catheter was threaded at 16 cm sewn to the neck using close silk and connector. All ports were flushed and draw blood without difficulty. They were flushed with a saline solution. Sterile dressings were applied. The patient was sent to Recovery in stable condition. Job ID: [id number]
--- NOTE | 2018-12-25 21:52 | RAD ---
EXAM: CHEST ONE VIEW HISTORY: Central line placement and nasogastric tube placement COMPARISON: 11/22/2018 FINDINGS: The cardiac silhouette and pulmonary vasculature is within normal limits. There has been interval dev elopment of bibasilar atelectasis with subsegmental atelectasis in the left midlung zone. No pleural effusion or pneumothorax is identified. There has been interval placement of a nasogastric tu be with tip overlying the expected location of the body of the stomach. A right internal jugular vein central venous catheter has also been placed in the interim with the tip overlying the region of the cavoatrial junction. The osseous structures are intact. IMPRESSION: 1. Interval placement of lines and tubes as described above. 2. Bibasilar atelectasis. No pneumothorax is seen.
[2018-12-25] MEDS ORDERED: Dextrose 5% in Water 1,000 ML IV PRN (22:34)
[2018-12-25] MEDS ORDERED: Dextrose 50% Abboject 50 ML SYRINGE SLOW IVP PRN (22:34)
[2018-12-25] MEDS: hydrALAZINE 20 MG/ML VIAL SLOW IVP PRN (23:48)
[2018-12-26] MEDS: Acetaminophen 1,000 MG in Premix Bag 1 BAG IVPB PRN ×2 (00:58→11:35)
[2018-12-26] MEDS ORDERED: Ketorolac Tromethamine 30 MG/ML VIAL IVP SCH (01:00)
[2018-12-26] MEDS: Sodium Chloride 0.9% 1,000 ML IV SCH ×2 (01:39→18:47)
[2018-12-26 03:46] LABS: #Lymphocytes 0.7 thou/uL (1.20-3.40); #Monocytes 0.5 thou/uL (0.11-0.59); #Neutrophils 12.2 thou/uL (1.40-6.50); %Basophils 0.1 % (0.0-1.0); %Lymphocytes 5.4 % (21.0-51.0); %Monocytes 3.5 % (0.0-10.0); %Neutrophils 90.9 % (42.0-75.0); Hemoglobin 11.9 g/dL (12.0-16.0); Mean Corpuscular HGB CONC 32.6 g/dL (32.0-36.0); Mean Corpuscular Hemoglobin 29.5 pg (27.0-31.0); Mean Corpuscular Volume 90.7 fL (78.0-98.0); Mean Platelet Volume 7.7 fL (7.4-10.4); Platelet Count 294 thou/uL (130-400); RBC Distribution Width 14.4 % (11.5-14.5); Red Blood Cell (RBC) Count 4.03 mill/uL (4.20-5.40); White Blood Cell (WBC) Count 13.5 thou/uL (4.8-10.8)
[2018-12-26 03:57] LABS: Anion Gap 10 mmol/L (10-20); BUN (Urea Nitrogen) 13 mg/dL (9.8-20.1); Calc. Creatinine Clearance 67 mL/min (70-130); Calcium 7.9 mg/dL (7.8-10.44); Carbon Dioxide 17 mmol/L (23-31); Chloride 115 mmol/L (98-107); Estimated GFR-MDRD 76; Glucose 182 mg/dL (80-115); Magnesium 1.4 mg/dL (1.6-2.6); Potassium 3.4 mmol/L (3.5-5.1); Sodium 139 mmol/L (136-145)
[2018-12-26] MEDS: Gabapentin 300 MG CAP PO SCH (07:15)
[2018-12-26] MEDS: Dextrose 5 %-0.45 % NaCl 1,000 ML IV SCH (07:15)
[2018-12-26] MEDS: cloNIDine 0.1 MG TAB PO SCH (07:16)
[2018-12-26] MEDS: BUPRENORPHINE HCL BUC SCH (07:16)
[2018-12-26] MEDS ORDERED: Magnesium Sulfate 4 GM in Sodium Chloride 0.9% 250 ML 250 ML IVPB SCH (07:30)
[2018-12-26] MEDS: Pantoprazole 40 MG VIAL IVP SCH (08:14)
[2018-12-26] MEDS: 1/2 NS w/KCL 20 mEq 1,000 ML IV SCH ×2 (08:16→20:51)
--- NOTE | 2018-12-26 10:53 | PDOC.PN ---
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 - Objective Resuscitation Status - Order Detail: 12/24/18 21:39 Resuscitation Status Routine Resuscitation Status: FULL: Full Resuscitation MAR Reviewed: Yes Vital Signs & Weight: Vital Signs (12 hours) Temp Pulse Pulse Resp BP BP BP 12/26/18 08:14 12/26/18 07:54 98.5 F 92 16 152/71 H 12/26/18 07:16 178/83 H 12/26/18 03:32 98.4 F 109 H 16 110/66 12/26/18 01:03 98.4 F 105 H 20 110/65 12/26/18 00:02 12/25/18 23:48 93 178/83 H 12/25/18 23:18 98.2 F 85 16 188/73 H Pulse Ox 12/26/18 08:14 96 12/26/18 07:54 96 12/26/18 07:16 12/26/18 03:32 96 12/26/18 01:03 98 12/26/18 00:02 100 12/25/18 23:48 12/25/18 23:18 100 Weight Weight 125 lb 3.2 oz I&O: 12/25/18 12/26/18 12/27/18 06:59 06:59 06:59 Intake Total 1625.6 1900 Output Total 570 Balance 1625.6 1330 Result Diagrams: 12/26/18 03:20 12/26/18 03:20 Additional Labs: Accuchecks 12/26/18 12/25/18 12/25/18 06:01 23:54 11:46 POC Glucose 145 H 163 H 119 H Radiology Reviewed by me: Yes (CT abdomen reviwed) Phys Exam - Physical Examination Constitutional: NAD HEENT: PERRLA, moist MMs, sclera anicteric NG tube+ Neck: no JVD, supple Respiratory: no wheezing, no rales, no rhonchi Cardiovascular: RRR, no significant murmur, no rub Gastrointestinal: soft surgical site with dressing, ELEANOR drain+ Musculoskeletal: no edema, pulses present Neurological: non-focal, normal sensation, moves all 4 limbs Lymphatic: no nodes Psychiatric: normal affect, A&O x 3 Skin: no rash, normal turgor Dx/Plan (1) Perforated duodenal ulcer with hemorrhage Code(s): K26.6 - CHRONIC OR UNSP DUODENAL ULCER W BOTH HEMORRHAGE AND PERF Status: Acute (2) Upper GI bleed Code(s): K92.2 - GASTROINTESTINAL HEMORRHAGE, UNSPECIFIED Status: Acute (3) Anemia due to acute blood loss Code(s): D62 - ACUTE POSTHEMORRHAGIC ANEMIA Status: Acute (4) Hypomagnesemia Code(s): E83.42 - HYPOMAGNESEMIA Status: Acute (5) Chronic pain disorder Code(s): G89.4 - CHRONIC PAIN SYNDROME Status: Chronic (6) Diabetes type 2, controlled Code(s): E11.9 - TYPE 2 DIABETES MELLITUS WITHOUT COMPLICATIONS Status: Chronic (7) Dyslipidemia Code(s): E78.5 - HYPERLIPIDEMIA, UNSPECIFIED Status: Chronic (8) HTN (hypertension) Code(s): I10 - ESSENTIAL (PRIMARY) HYPERTENSION Status: Chronic Qualifiers: (9) Neuropathic pain Status: Chronic (10) Obesity (BMI 30.0-34.9) Code(s): E66.9 - OBESITY, UNSPECIFIED Status: Chronic (11) PUD (peptic ulcer disease) Code(s): K27.9 - PEPTIC ULC, SITE UNSP, UNSP AC OR CHR, W/O HEMOR OR PERF Status: Chronic (12) Restless leg syndrome Status: Chronic (13) Hypokalemia Code(s): E87.6 - HYPOKALEMIA Status: Acute (14) S/P bypass gastrojejunostomy Code(s): Z98.0 - INTESTINAL BYPASS AND ANASTOMOSIS STATUS Status: Acute - Plan cont current plan of care, plan discussed w/ family, incentive spirometry * pt is NPO, will defer diet advancement to surgeon * will change IVF 1/2 NS with KCL at 100 ml per hour to prevent hypechloremia * replace magnesium sulfate * continue IV protonix * post operative care * discussed with family * medication reviewed as below * symptomatic treatment * 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 Review of Systems - Review of Systems ENT: negative: Ear Pain, Ear Discharge, Nose Pain, Nose Discharge, Nose Congestion, Mouth Pain, Mouth Swelling, Throat Pain, Throat Swelling, Other Respiratory: negative: Cough, Dry, Shortness of Breath, Hemoptysis, SOB with Excertion, Pleuritic Pain, Sputum, Wheezing Cardiovascular: negative: chest pain, palpitations, orthopnea, paroxysmal nocturnal dyspnea, edema, light headedness, other Gastrointestinal: negative: Nausea, Vomiting, Abdominal Pain, Diarrhea, Constipation, Melena, Hematochezia, Other Genitourinary: negative: Dysuria, Frequency, Incontinence, Hematuria, Retention , Other Musculoskeletal: negative: Neck Pain, Shoulder Pain, Arm Pain, Back Pain, Hand Pain, Leg Pain, Foot Pain, Other Skin: negative: Rash, Lesions, Joe, Bruising, Other - Medications/Allergies Allergies/Adverse Reactions: Allergies Allergy/AdvReac Type Severity Reaction Status Date / Time ciprofloxacin Allergy Verified 11/06/18 19:36 Medications: Current Medications Albuterol/Ipratropium (Duoneb) 3 ml NEB Q4H PRN PRN Reason: Wheezing Clonidine (Catapres) 0.1 mg PO Q4H PRN PRN Reason: SBP Greater Than 180 Dextrose/Water (Dextrose 50%) 25 gm SLOW IVP PRN PRN PRN Reason: Hypoglycemia Diphenhydramine HCl (Benadryl) 25 mg IVP Q3H PRN PRN Reason: Itching Diphenhydramine HCl (Benadryl) 25 mg PO Q3H PRN PRN Reason: Itching Diphenhydramine HCl (Benadryl) 25 mg IM Q3H PRN PRN Reason: Itching Glucagon (Glucagon) 1 mg IM PRN PRN PRN Reason: Hypoglycemia Hydralazine HCl (Apresoline) 10 mg SLOW IVP Q4H PRN PRN Reason: SBP > 170 or DBP > 100 Last Admin: 12/25/18 23:48 Dose: 10 mg Hydromorphone HCl (Dilaudid Cadd) 0 mg IVPB INF PRN PRN Reason: Pain Dextrose/Water (D5w) 1,000 mls @ 0 mls/hr IV .Q0M PRN PRN Reason: Hypoglycemia Acetaminophen 1,000 mg/ Device 100 mls @ 400 mls/hr IVPB Q6H PRN PRN Reason: Fever/Mild Pain Stop: 12/26/18 22:35 Last Admin: 12/26/18 00:58 Dose: 100 mls Potassium Chloride/Sodium Chloride (1/2 Ns W/Kcl 20 Meq) 1,000 mls @ 100 mls/ hr IV .Q10H [facility] Last Admin: 12/26/18 08:16 Dose: 1,000 mls Insulin Human Lispro (Humalog) 0 units SC .MODERATE SLIDING SC PRN PRN Reason: Moderate Correctional Scale Miscellaneous Information (Communication Order-Pharmacy) 1 each FS ONE [facility] Stop: 12/26/18 21:01 Naloxone HCl (Narcan) 0.2 mg IV Q5MIN PRN PRN Reason: Opiate Reversal Ondansetron HCl (Zofran) 4 mg IVP Q6H PRN PRN Reason: Nausea/Vomiting Pantoprazole Sodium (Protonix) 40 mg IVP DAILY [facility] Last Admin: 12/26/18 08:14 Dose: 40 mg Promethazine HCl (Phenergan) 12.5 mg IM Q4H PRN PRN Reason: Nausea/Vomiting Sodium Chloride (Flush - Normal Saline) 10 ml IVF PRN PRN PRN Reason: Saline Flush Zolpidem Tartrate (Ambien) 5 mg PO HSPRN PRN PRN Reason: Insomnia
--- NOTE | 2018-12-26 11:12 | OP ---
DATE OF PROCEDURE: 12/25/2018 PROCEDURE: Esophagogastroduodenoscopy, control of hemorrhage. PREOPERATIVE DIAGNOSES: Recurrent gastrointestinal hemorrhage, history of duodenal ulcer with multiple endoscopies in the past since this past July. She has had 3 times at that time, once in 2016. Prior biopsies for Helicobacter pylori negative. POSTOPERATIVE DIAGNOSES: 1. 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 I was able to advance the scope beyond this area with some pressure. 2. There is a ulcer at the same area of the stricture with visible vessel. This was injected with 1:10,000 epinephrine and cauterized with 10-[place] heater probe with ablation of bleeding. RECOMMENDATIONS: 1. IV Protonix drip. 2. Gastrin fasting to rule out gastrinoma. This is elevated. They could be from atrophic gastritis or the Protonix, but I think it will warrant a workup for gastrinoma in light of her multiple ulcers. The family states she is not using NSAIDs. 3. The patient has recurrent bleeding and she needs to see General surgery for possible definitive surgical therapy with pyloroplasty and vagotomy as well, but would not do this until workup to rule out gastrinoma has been completed. ANESTHESIA: TIVA. PROCEDURE IN DETAIL: The patient was informed of the risks, benefits, and possible complications of endoscopy including perforation, reaction to medication, and aspiration. Informed consent was obtained. The patient was brought to endoscopy suite, where she was sedated in standard fashion. Once she was comfortable, a bite block was placed inside the orifice. The endoscope was advanced through the esophagus, stomach, and second and third portion of the duodenum. The esophagus and stomach were completely normal in appearance in forward and retroflexed views. The duodenal bulb was entered and there was a tinge of red blood there. The ulcer at the apex of the duodenal bulb was identified and there was a visible vessel with clot there. We went ahead and injected this with 1:10,000 epinephrine and then by this area into the 2nd, 3rd portion of the duodenum. There was a stricture at this area related to prior peptic disease. However, the scope was able to be advanced beyond this with some mild pressure. On the way back the visible vessel was seen. This was cauterized with a 10-[place] heater probe and ablated. The scope was removed. The patient tolerated the procedure well. There were no complications. Job ID: [id number]
--- NOTE | 2018-12-26 11:30 | PDOC.GSPN ---
Surgery Progress Note: Subj - Subjective Narrative: C/o severe pain. 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 not out of bed yet Surgery Progress Note: Obj - Vital signs Vital signs: Vital Signs - Most Recent Temp Pulse Resp BP Pulse Ox 98.5 F 92 16 152/71 H 96 12/26/18 07:54 12/26/18 07:54 12/26/18 07:54 12/26/18 07:54 12/26/18 08:14 - Physical Exam General: no distress Cardiovascular: regular rate and rhythm Respiratory: clear to auscultation Abdomen: soft, appropriately tender Wound: dressing clean,dry,intact (Drain: serosang) Surgery Progress Note: Results - Labs Result Diagrams: 12/26/18 03:20 12/26/18 03:20 Lab results: Laboratory Results - last 24 hr 12/24/18 12/25/18 12/26/18 19:00 23:54 03:20 WBC RBC Hgb Hct MCV MCH MCHC RDW Plt Count MPV Neutrophils % Lymphocytes % Monocytes % Eosinophils % Basophils % Neutrophils # Lymphocytes # Monocytes # Eosinophils # Basophils # Sodium 139 Potassium 3.4 L Chloride 115 H Carbon Dioxide 17 L Anion Gap 10 BUN 13 Creatinine 0.77 Estimated GFR (MDRD) 76 Glucose 182 H POC Glucose 163 H Calcium 7.9 Phosphorus Magnesium 1.4 L Blood Type O POSITIVE Antibody Screen NEGATIVE Crossmatch See Detail 12/26/18 12/26/18 12/26/18 03:20 03:20 06:01 WBC 13.5 H RBC 4.03 L Hgb 11.9 L Hct 36.5 MCV 90.7 MCH 29.5 MCHC 32.6 RDW 14.4 Plt Count 294 MPV 7.7 Neutrophils % 90.9 H Lymphocytes % 5.4 L Monocytes % 3.5 Eosinophils % 0.0 Basophils % 0.1 Neutrophils # 12.2 H Lymphocytes # 0.7 L Monocytes # 0.5 Eosinophils # 0.0 Basophils # 0.0 Sodium Potassium Chloride Carbon Dioxide Anion Gap BUN Creatinine Estimated GFR (MDRD) Glucose POC Glucose 145 H Calcium Phosphorus 3.0 Magnesium Blood Type Antibody Screen Crossmatch Surgery Progress Note: A/P - Problem (1) Perforated duodenal ulcer with hemorrhage Current Visit: Yes Code(s): K26.6 - CHRONIC OR UNSP DUODENAL ULCER W BOTH HEMORRHAGE AND PERF Status: Acute - Plan Plan: POD 1 antrectomy, loop gastro-J -pain control going to be difficult with her baseline chronic pain -NG to [facility] in am tomorrow
[2018-12-26] MEDS: HYDROmorphone 10 mg/100 ml CADD IVPB PRN ×2 (11:48→19:15)
[2018-12-26] MEDS: hydrALAZINE 20 MG/ML VIAL SLOW IVP PRN ×2 (16:43→20:18)
[2018-12-26] MEDS: Ondansetron PF 4 MG/2 ML Vial IVP PRN ×2 (17:13→23:26)
[2018-12-26] MEDS: Acetaminophen 1,000 MG in Premix Bag 1 BAG IVPB SCH ×2 (17:48→23:23)
[2018-12-26] MEDS: cloNIDine 0.2mg/24 Hour PATCH TD SCH (18:09)
[2018-12-26] MEDS ORDERED: Ketorolac Tromethamine 30 MG/ML VIAL IVP PRN (23:15)
[2018-12-26] MEDS ORDERED: Ketorolac Tromethamine 30 MG/ML VIAL ONE (23:21)
[2018-12-26] MEDS: Labetalol HCl 100 MG/20 ML VIAL SLOW IVP PRN (23:45)
[2018-12-27] MEDS: 1/2 NS w/KCL 20 mEq 1,000 ML IV SCH ×2 (01:58→13:03)
[2018-12-27] MEDS: Chloraseptic Spray 180 ml Bottle PO PRN (01:58)
[2018-12-27 03:42] LABS: #Lymphocytes 0.8 thou/uL (1.20-3.40); #Monocytes 0.6 thou/uL (0.11-0.59); %Basophils 0.2 % (0.0-1.0); %Eosinophils 0.1 % (0.0-10.0); %Lymphocytes 5.9 % (21.0-51.0); %Monocytes 4.1 % (0.0-10.0); %Neutrophils 89.7 % (42.0-75.0); Hemoglobin 11.2 g/dL (12.0-16.0); Mean Corpuscular HGB CONC 32.7 g/dL (32.0-36.0); Mean Corpuscular Hemoglobin 29.7 pg (27.0-31.0); Mean Platelet Volume 7.5 fL (7.4-10.4); Platelet Count 290 thou/uL (130-400); RBC Distribution Width 15.1 % (11.5-14.5); Red Blood Cell (RBC) Count 3.75 mill/uL (4.20-5.40); White Blood Cell (WBC) Count 13.4 thou/uL (4.8-10.8)
[2018-12-27] MEDS: HYDROmorphone 10 mg/100 ml CADD IVPB PRN (03:45)
[2018-12-27 04:01] LABS: Anion Gap 12 mmol/L (10-20); BUN (Urea Nitrogen) 13 mg/dL (9.8-20.1); Calc. Creatinine Clearance 71 mL/min (70-130); Calcium 7.6 mg/dL (7.8-10.44); Carbon Dioxide 14 mmol/L (23-31); Chloride 117 mmol/L (98-107); Estimated GFR-MDRD 81; Glucose 111 mg/dL (80-115); Phosphorus 2.7 mg/dL (2.3-4.7); Potassium 3.3 mmol/L (3.5-5.1); Sodium 140 mmol/L (136-145)
[2018-12-27] MEDS: Labetalol HCl 100 MG/20 ML VIAL SLOW IVP PRN ×3 (04:06→18:09)
[2018-12-27] MEDS: Acetaminophen 1,000 MG in Premix Bag 1 BAG IVPB SCH ×4 (05:29→23:01)
[2018-12-27] MEDS: hydrALAZINE 20 MG/ML VIAL SLOW IVP PRN (05:29)
[2018-12-27] MEDS ORDERED: KETAMINE IVPB SCH (08:45)
[2018-12-27] MEDS ORDERED: SODIUM CHLORIDE 0.9% IVPB SCH (08:45)
[2018-12-27] MEDS ORDERED: Ketamine 50 MG/ML (10ML VIAL) ONE (09:10)
--- NOTE | 2018-12-27 10:53 | PRG ---
DATE OF SERVICE: 12/27/2018 SUBJECTIVE: Ms. Qureshi continues to have severe pain issues. Her chronic pain has made it difficult to control her acute postsurgery pain. When her pain is most severe, her blood pressure and pulses increased. However, this morning her pulses is more normal. She has not been out of bed since surgery. OBJECTIVE: Blood pressure is 186/78, pulse 98, and respirations are 20. She is afebrile. Gastric drainage was 400 over for 24 hours, Barnard 1250, 90 in her drain, serosanguineous. Her abdomen is soft. Her wounds are dressed. LABORATORY DATA: White blood cell count is 13, hemoglobin 11, and platelet count is 290. Sodium 140, potassium 3.3, creatinine 0.73. ASSESSMENT: Postoperative day #2, antrectomy, and gastrojejunostomy. PLAN: I encouraged ambulation, which is going to be difficult until her pain is under better control. Her pain issues are substantial and may have trouble and I suspect we will have trouble controlling her acute postoperative pain. Until her pain improves, I am in no hurry to remove the NG tube or attempt a Gastrografin swallow. We will continue to follow. Job ID: [id number]
[2018-12-27] MEDS ORDERED: hydrALAZINE 20 MG/ML VIAL ONE (12:08)
[2018-12-27] MEDS ORDERED: Metoprolol Tartrate 5 MG/5 ML VIAL ONE (12:08)
[2018-12-27] MEDS ORDERED: Gabapentin 300 MG CAP ONE (12:15)
--- NOTE | 2018-12-27 12:19 | PDOC.PN ---
- Subjective Encounter Start Date: 12/27/18 Encounter Start Time: 08:30 this morning pt was moaning in pain, has nausea and vomiting, - Objective Resuscitation Status - Order Detail: 12/24/18 21:39 Resuscitation Status Routine Resuscitation Status: FULL: Full Resuscitation MAR Reviewed: Yes Vital Signs & Weight: Vital Signs (12 hours) Temp Pulse Resp BP BP Pulse Ox 12/27/18 08:00 97 12/27/18 07:40 98.9 F 98 20 186/78 H 97 12/27/18 06:29 148/71 H 12/27/18 05:29 80 193/78 H 12/27/18 04:06 97 203/87 H 12/27/18 04:00 98.4 F 92 20 97 Weight Admit Weight 125 lb 3.2 oz Weight 125 lb 3.2 oz I&O: 12/26/18 12/27/18 12/28/18 06:59 06:59 06:59 Intake Total 1900 2530 Output Total 570 1740 Balance 1330 790 Result Diagrams: 12/27/18 03:29 12/27/18 03:29 Additional Labs: Accuchecks 12/27/18 12/26/18 05:32 16:13 POC Glucose 116 H 134 H Phys Exam - Physical Examination Constitutional: NAD HEENT: PERRLA, sclera anicteric NG tube+ Neck: no JVD, supple Respiratory: no wheezing, no rales, no rhonchi Cardiovascular: RRR, no significant murmur, no rub Gastrointestinal: soft surgical site with dressing, ELEANOR drain+ Musculoskeletal: no edema, pulses present Neurological: non-focal, normal sensation, moves all 4 limbs Lymphatic: no nodes Psychiatric: normal affect, A&O x 3 Skin: no rash, normal turgor Dx/Plan (1) Perforated duodenal ulcer with hemorrhage Code(s): K26.6 - CHRONIC OR UNSP DUODENAL ULCER W BOTH HEMORRHAGE AND PERF Status: Acute (2) Upper GI bleed Code(s): K92.2 - GASTROINTESTINAL HEMORRHAGE, UNSPECIFIED Status: Acute (3) Anemia due to acute blood loss Code(s): D62 - ACUTE POSTHEMORRHAGIC ANEMIA Status: Acute (4) Hypomagnesemia Code(s): E83.42 - HYPOMAGNESEMIA Status: Acute (5) Chronic pain disorder Code(s): G89.4 - CHRONIC PAIN SYNDROME Status: Chronic (6) Diabetes type 2, controlled Code(s): E11.9 - TYPE 2 DIABETES MELLITUS WITHOUT COMPLICATIONS Status: Chronic (7) Dyslipidemia Code(s): E78.5 - HYPERLIPIDEMIA, UNSPECIFIED Status: Chronic (8) HTN (hypertension) Code(s): I10 - ESSENTIAL (PRIMARY) HYPERTENSION Status: Chronic Qualifiers: (9) Neuropathic pain Status: Chronic (10) Obesity (BMI 30.0-34.9) Code(s): E66.9 - OBESITY, UNSPECIFIED Status: Chronic (11) PUD (peptic ulcer disease) Code(s): K27.9 - PEPTIC ULC, SITE UNSP, UNSP AC OR CHR, W/O HEMOR OR PERF Status: Chronic (12) Restless leg syndrome Status: Chronic (13) Hypokalemia Code(s): E87.6 - HYPOKALEMIA Status: Acute (14) S/P bypass gastrojejunostomy Code(s): Z98.0 - INTESTINAL BYPASS AND ANASTOMOSIS STATUS Status: Acute - Plan cont current plan of care, plan discussed w/ family, incentive spirometry * pt is planned for ketamin for pain control with close monitoring in pacu * medication reviewed as below * symptomatic treatment * will defer post operative care as per surgeon * pt is NPO * for BP control continue catapress patch * will change hydralazin and labetolol IV q 2 hr prn * updated to daughter. Review of Systems - Review of Systems ENT: negative: Ear Pain, Ear Discharge, Nose Pain, Nose Discharge, Nose Congestion, Mouth Pain, Mouth Swelling, Throat Pain, Throat Swelling, Other Respiratory: negative: Cough, Dry, Shortness of Breath, Hemoptysis, SOB with Excertion, Pleuritic Pain, Sputum, Wheezing Cardiovascular: negative: chest pain, palpitations, orthopnea, paroxysmal nocturnal dyspnea, edema, light headedness, other Gastrointestinal: Nausea, Vomiting. negative: Abdominal Pain, Diarrhea, Constipation, Melena, Hematochezia, Other Genitourinary: negative: Dysuria, Frequency, Incontinence, Hematuria, Retention , Other - Medications/Allergies Allergies/Adverse Reactions: Allergies Allergy/AdvReac Type Severity Reaction Status Date / Time ciprofloxacin Allergy Verified 11/06/18 19:36 Medications: Current Medications Albuterol/Ipratropium (Duoneb) 3 ml NEB Q4H PRN PRN Reason: Wheezing Clonidine (Catapres) 0.1 mg PO Q4H PRN PRN Reason: SBP Greater Than 180 Clonidine ([id number]-[id number]) 0.2 mg TD Q7D [facility] Last Admin: 12/26/18 18:09 Dose: 0.2 mg Dextrose/Water (Dextrose 50%) 25 gm SLOW IVP PRN PRN PRN Reason: Hypoglycemia Diphenhydramine HCl (Benadryl) 25 mg IVP Q3H PRN PRN Reason: Itching Diphenhydramine HCl (Benadryl) 25 mg PO Q3H PRN PRN Reason: Itching Diphenhydramine HCl (Benadryl) 25 mg IM Q3H PRN PRN Reason: Itching Fentanyl (Duragesic) 75 mcg TD Q3D [facility] Glucagon (Glucagon) 1 mg IM PRN PRN PRN Reason: Hypoglycemia Hydralazine HCl (Apresoline) 10 mg SLOW IVP Q4H PRN PRN Reason: SBP > 170 or DBP > 100 Last Admin: 12/27/18 05:29 Dose: 10 mg Hydromorphone HCl (Dilaudid Cadd) 0 mg IVPB INF PRN PRN Reason: Pain Last Admin: 12/27/18 03:45 Dose: 10 mg Dextrose/Water (D5w) 1,000 mls @ 0 mls/hr IV .Q0M PRN PRN Reason: Hypoglycemia Potassium Chloride/Sodium Chloride (1/2 Ns W/Kcl 20 Meq) 1,000 mls @ 100 mls/ hr IV .Q10H [facility] Last Admin: 12/27/18 01:58 Dose: 1,000 mls Acetaminophen 1,000 mg/ Device 100 mls @ 400 mls/hr IVPB Q6HR [facility] Stop: 12/29/18 18:01 Last Admin: 12/27/18 05:29 Dose: 100 mls Potassium Chloride 10 meq/ (Device) 100 mls @ 100 mls/hr IVPB Q6H [facility] Stop: 12/28/18 01:59 Insulin Human Lispro (Humalog) 0 units SC .MODERATE SLIDING SC PRN PRN Reason: Moderate Correctional Scale Labetalol HCl (Normodyne) 20 mg SLOW IVP Q4H PRN PRN Reason: SBP Greater Than 180 Last Admin: 12/27/18 04:06 Dose: 20 mg Naloxone HCl (Narcan) 0.2 mg IV Q5MIN PRN PRN Reason: Opiate Reversal Ondansetron HCl (Zofran) 4 mg IVP Q6H PRN PRN Reason: Nausea/Vomiting Last Admin: 12/26/18 23:26 Dose: 4 mg Pantoprazole Sodium (Protonix) 40 mg IVP DAILY [facility] Last Admin: 12/26/18 08:14 Dose: 40 mg Phenol (Chloraseptic [place] 180 Ml Bot) 0 ml PO Q4H PRN PRN Reason: Sore Throat Last Admin: 12/27/18 01:58 Dose: 1 spray Promethazine HCl (Phenergan) 12.5 mg IM Q4H PRN PRN Reason: Nausea/Vomiting Sodium Chloride (Flush - Normal Saline) 10 ml IVF PRN PRN PRN Reason: Saline Flush Zolpidem Tartrate (Ambien) 5 mg PO HSPRN PRN PRN Reason: Insomnia
[2018-12-27] MEDS: Potassium Chloride 10 MEQ in Premix Bag 1 BAG IVPB SCH ×3 (13:08→18:09)
[2018-12-27] MEDS: Pantoprazole 40 MG VIAL IVP SCH ×2 (13:11→13:13)
[2018-12-27] MEDS ORDERED: Gabapentin 300 MG CAP PO SCH (13:30)
--- NOTE | 2018-12-27 13:31 | PDOC.EVN ---
Event Note - Event Note Event Note: Called to room for family with questions about her care. The patient told family she was "mistreated" and "ignored" in the PACU during Ketamine infusion. I explained that she was monitored continuously during her time there. Explained what a Ketamine infusion entailed and her recollection may be due to lingering effects from the ketamine which did markedly improve her pain. She is now complaining of chest pain. Will check EKG and cardiac enzymes. Will allow sips water for restarting meds including gabapentin
[2018-12-27] MEDS: Gabapentin 300 MG CAP PO SCH (21:45)
[2018-12-28] MEDS: 1/2 NS w/KCL 20 mEq 1,000 ML IV SCH ×2 (00:01→16:02)
[2018-12-28] MEDS: Potassium Chloride 10 MEQ in Premix Bag 1 BAG IVPB SCH (00:02)
[2018-12-28] MEDS ORDERED: Activase 2 MG VIAL CATH SCH (03:15)
[2018-12-28] MEDS ORDERED: Sterile Water 10 ML VIAL IVP SCH (03:15)
[2018-12-28] MEDS: Acetaminophen 1,000 MG in Premix Bag 1 BAG IVPB SCH ×3 (05:24→18:12)
[2018-12-28 05:45] LABS: #Lymphocytes 1.4 thou/uL (1.20-3.40); #Monocytes 0.9 thou/uL (0.11-0.59); #Neutrophils 13.1 thou/uL (1.40-6.50); %Basophils 0.1 % (0.0-1.0); %Eosinophils 0.1 % (0.0-10.0); %Lymphocytes 9.3 % (21.0-51.0); %Monocytes 5.6 % (0.0-10.0); %Neutrophils 84.9 % (42.0-75.0); Hemoglobin 9.3 g/dL (12.0-16.0); Mean Corpuscular HGB CONC 32.5 g/dL (32.0-36.0); Mean Corpuscular Hemoglobin 29.8 pg (27.0-31.0); Mean Corpuscular Volume 91.8 fL (78.0-98.0); Mean Platelet Volume 8.1 fL (7.4-10.4); Platelet Count 247 thou/uL (130-400); RBC Distribution Width 15.3 % (11.5-14.5); Red Blood Cell (RBC) Count 3.12 mill/uL (4.20-5.40); White Blood Cell (WBC) Count 15.4 thou/uL (4.8-10.8)
[2018-12-28 05:55] LABS: ALT (SGPT) 119 U/L (8-55); AST (SGOT) 62 U/L (5-34); Albumin 2.7 g/dL (3.4-4.8); Alkaline Phosphatase 142 U/L (40-150); Anion Gap 11 mmol/L (10-20); BUN (Urea Nitrogen) 18 mg/dL (9.8-20.1); Bilirubin, Total 5.6 mg/dL (0.2-1.2); Calc. Creatinine Clearance 73 mL/min (70-130); Calcium 8.4 mg/dL (7.8-10.44); Carbon Dioxide 18 mmol/L (23-31); Chloride 110 mmol/L (98-107); Estimated GFR-MDRD 83; Globulin 2.6 g/dL (2.4-3.5); Glucose 87 mg/dL (80-115); Potassium 3.5 mmol/L (3.5-5.1); Protein, Total 5.3 g/dL (6.0-8.3); Sodium 135 mmol/L (136-145)
[2018-12-28] MEDS: cloNIDine 0.1 MG TAB PO PRN (09:36)
[2018-12-28] MEDS: Pantoprazole 40 MG VIAL IVP SCH ×2 (09:38→22:05)
[2018-12-28] MEDS: Gabapentin 300 MG CAP PO SCH ×3 (09:38→22:05)
--- NOTE | 2018-12-28 10:25 | CT ---
CT OF THE ABDOMEN AND PELVIS WITH IV CONTRAST: INDICATION: History of recent antrectomy and establishment of a gastrojejunostomy with complaints of abdominal pa in. COMPARISON: Noncontrast CT of the abdomen dated 12/25/2018 and 08/06/2018. FINDINGS: Within the region of a focal gas collection in the retroperitoneal space, adjacent to the 2nd stage o f the duodenum on the prior examination, is now a fluid and gas collection measuring 4.7 x 7.2 cm. T his is seen just cephalad to the duodenal resection site, near the anastomotic suture line. There is a surgical drain projecting up into the right upper quadrant of the abdomen. There are a few scatte red locules of free air within the anterior abdomen likely related to patient's recent post cholecyst ectomy state. There is a midline laparotomy incision. There has been an interval gastrojejunostomy. No abnormal fluid is seen surrounding the gastrojejuno stomy site. Contrast does not extravasate. Contrast is seen within multiple loops of jejunum. There is new moderate intrahepatic and extrahepatic biliary ductal dilatation and pancreatic ductal d ilation which has developed in the interim. The common bile duct measures 1.1 cm. There is bibasilar atelectasis. The spleen and kidneys reveal no definite acute abnormality. There is a stable 4 mm nonobstructing c alculus in the inferior pole of the left kidney. There are bilateral renal cysts. There is a Barnard catheter in a decompressed bladder. No acute osseous abnormality is evident. IMPRESSION: 1. Interval gastric antrectomy/partial duodenectomy with establishment of a gastric jejunostomy and closure of the distal 2nd stage of the duodenum. There is a fluid and gas collection seen adjacent t o the antrectomy site which may reflect a small postoperative fluid collection. This does not appear well organized to suggest that it represents an abscess and is likely a post operative fluid collect ion. The surgical drain is adjacent to but no in the collection. 2. Small locules of gas within the anterior abdomen consistent with patient's recent postoperative s matthews. 3. Interval development of intrahepatic and extrahepatic biliary ductal and pancreatic ductal dilata tion may be related obstruction from inflammation or the surgical procedure near the ampulla. Would recommend consideration for a HIDA scan to evaluate biliary drainage from the biliary system. 4. Left nephrolithiasis and bilateral renal cysts. 5. Barnard catheter. POS: TPC
[2018-12-28] MEDS: HYDROmorphone 10 mg/100 ml CADD IVPB PRN (10:40)
--- NOTE | 2018-12-28 11:31 | PDOC.PN ---
- Subjective Encounter Start Date: 12/28/18 Encounter Start Time: 09:15 pt still has surgical site pain, today has icterus, no nausea, no fever - Objective Resuscitation Status - Order Detail: 12/24/18 21:39 Resuscitation Status Routine Resuscitation Status: FULL: Full Resuscitation MAR Reviewed: Yes Vital Signs & Weight: Vital Signs (12 hours) Temp Pulse Resp BP BP Pulse Ox 12/28/18 09:36 202/84 H 12/28/18 07:28 98.4 F 90 20 195/81 H 97 12/28/18 04:26 98.7 F 81 16 148/63 H 97 12/28/18 00:00 97.9 F 67 20 102/62 99 Weight Admit Weight 125 lb 3.2 oz Weight 125 lb 3.2 oz I&O: 12/27/18 12/28/18 12/29/18 06:59 06:59 06:59 Intake Total 2530 1450 Output Total 1780 1185 Balance 750 265 Result Diagrams: 12/28/18 02:55 12/28/18 02:55 Additional Labs: Accuchecks 12/28/18 12/27/18 05:23 23:51 POC Glucose 98 104 Radiology Reviewed by me: Yes (CT abdomen noted) Phys Exam - Physical Examination Constitutional: NAD HEENT: PERRLA, moist MMs icterus noted Neck: no JVD, supple Respiratory: no wheezing, no rales, no rhonchi Cardiovascular: RRR, no significant murmur, no rub Gastrointestinal: soft surgical site with dressing, drain+ Musculoskeletal: no edema, pulses present Neurological: non-focal, normal sensation, moves all 4 limbs Lymphatic: no nodes Psychiatric: normal affect, A&O x 3 Skin: no rash, normal turgor Dx/Plan (1) Perforated duodenal ulcer with hemorrhage Code(s): K26.6 - CHRONIC OR UNSP DUODENAL ULCER W BOTH HEMORRHAGE AND PERF Status: Acute (2) S/P bypass gastrojejunostomy Code(s): Z98.0 - INTESTINAL BYPASS AND ANASTOMOSIS STATUS Status: Acute (3) Abnormal LFTs Code(s): R94.5 - ABNORMAL RESULTS OF LIVER FUNCTION STUDIES Status: Acute (4) Upper GI bleed Code(s): K92.2 - GASTROINTESTINAL HEMORRHAGE, UNSPECIFIED Status: Acute (5) Anemia due to acute blood loss Code(s): D62 - ACUTE POSTHEMORRHAGIC ANEMIA Status: Acute (6) Hypomagnesemia Code(s): E83.42 - HYPOMAGNESEMIA Status: Resolved (7) Chronic pain disorder Code(s): G89.4 - CHRONIC PAIN SYNDROME Status: Chronic (8) Diabetes type 2, controlled Code(s): E11.9 - TYPE 2 DIABETES MELLITUS WITHOUT COMPLICATIONS Status: Chronic (9) Dyslipidemia Code(s): E78.5 - HYPERLIPIDEMIA, UNSPECIFIED Status: Chronic (10) HTN (hypertension) Code(s): I10 - ESSENTIAL (PRIMARY) HYPERTENSION Status: Chronic Qualifiers: Comment: labile control (11) Neuropathic pain Status: Chronic (12) Obesity (BMI 30.0-34.9) Code(s): E66.9 - OBESITY, UNSPECIFIED Status: Chronic (13) PUD (peptic ulcer disease) Code(s): K27.9 - PEPTIC ULC, SITE UNSP, UNSP AC OR CHR, W/O HEMOR OR PERF Status: Chronic (14) Restless leg syndrome Status: Chronic (15) Hypokalemia Code(s): E87.6 - HYPOKALEMIA Status: Acute - Plan cont current plan of care, plan discussed w/ family, incentive spirometry, DVT proph w/SCDs * will monitor LFT, her elevated billirubin related with periampullary swelling. will defer further plan to surgeon, doubt need for hida scan vs ERCP * currently on fentanyl patch, [employer] * now able to give her home PO meds, so started lisinopril for better BP control , she has clonidine patch and will use PO clonidine * parenteral nutrition will defer to surgeon * ambulate as tolerated * diet advancement will defer to surgeon * continue post operative care * medication reviewed as below * symptomatic treatment * discussed with family Review of Systems - Review of Systems Eyes: negative: Pain, Vision Change, Conjunctivae Inflammation, Eyelid Inflammation, Redness, Other ENT: negative: Ear Pain, Ear Discharge, Nose Pain, Nose Discharge, Nose Congestion, Mouth Pain, Mouth Swelling, Throat Pain, Throat Swelling, Other Respiratory: negative: Cough, Dry, Shortness of Breath, Hemoptysis, SOB with Excertion, Pleuritic Pain, Sputum, Wheezing Cardiovascular: negative: chest pain, palpitations, orthopnea, paroxysmal nocturnal dyspnea, edema, light headedness, other Gastrointestinal: Abdominal Pain. negative: Nausea, Vomiting, Diarrhea, Constipation, Melena, Hematochezia, Other Musculoskeletal: negative: Neck Pain, Shoulder Pain, Arm Pain, Back Pain, Hand Pain, Leg Pain, Foot Pain, Other Skin: negative: Rash, Lesions, Joe, Bruising, Other - Medications/Allergies Allergies/Adverse Reactions: Allergies Allergy/AdvReac Type Severity Reaction Status Date / Time ciprofloxacin Allergy Verified 11/06/18 19:36 Medications: Current Medications Albuterol/Ipratropium (Duoneb) 3 ml NEB Q4H PRN PRN Reason: Wheezing Clonidine (Catapres) 0.1 mg PO Q4H PRN PRN Reason: SBP Greater Than 180 Last Admin: 12/28/18 09:36 Dose: 0.1 mg Clonidine ([id number]-Xwt-3) 0.2 mg TD Q7D [facility] Last Admin: 12/26/18 18:09 Dose: 0.2 mg Dextrose/Water (Dextrose 50%) 25 gm SLOW IVP PRN PRN PRN Reason: Hypoglycemia Diphenhydramine HCl (Benadryl) 25 mg IVP Q3H PRN PRN Reason: Itching Diphenhydramine HCl (Benadryl) 25 mg PO Q3H PRN PRN Reason: Itching Diphenhydramine HCl (Benadryl) 25 mg IM Q3H PRN PRN Reason: Itching Fentanyl (Duragesic) 75 mcg TD Q3D [facility] Gabapentin (Neurontin) 600 mg PO TID [facility] Last Admin: 12/28/18 09:38 Dose: 600 mg Glucagon (Glucagon) 1 mg IM PRN PRN PRN Reason: Hypoglycemia Hydralazine HCl (Apresoline) 10 mg SLOW IVP Q2H PRN PRN Reason: SBP > 170 or DBP > 100 Hydromorphone HCl (Dilaudid Cadd) 0 mg IVPB INF PRN PRN Reason: Pain Last Admin: 12/28/18 10:40 Dose: 10 mg Dextrose/Water (D5w) 1,000 mls @ 0 mls/hr IV .Q0M PRN PRN Reason: Hypoglycemia Potassium Chloride/Sodium Chloride (1/2 Ns W/Kcl 20 Meq) 1,000 mls @ 100 mls/ hr IV .Q10H [facility] Last Admin: 12/28/18 00:01 Dose: 1,000 mls Acetaminophen 1,000 mg/ Device 100 mls @ 400 mls/hr IVPB Q6HR [facility] Stop: 12/29/18 18:01 Last Admin: 12/28/18 05:24 Dose: 100 mls Insulin Human Lispro (Humalog) 0 units SC .MODERATE SLIDING SC PRN PRN Reason: Moderate Correctional Scale Labetalol HCl (Normodyne) 20 mg SLOW IVP Q2H PRN PRN Reason: SBP Greater Than 180 Last Admin: 12/27/18 18:09 Dose: 20 mg Naloxone HCl (Narcan) 0.2 mg IV Q5MIN PRN PRN Reason: Opiate Reversal Ondansetron HCl (Zofran) 4 mg IVP Q6H PRN PRN Reason: Nausea/Vomiting Last Admin: 12/26/18 23:26 Dose: 4 mg Pantoprazole Sodium (Protonix) 40 mg IVP Q12HR [facility] Last Admin: 12/28/18 09:38 Dose: 40 mg Phenol (Chloraseptic [place] 180 Ml Bot) 0 ml PO Q4H PRN PRN Reason: Sore Throat Last Admin: 12/27/18 01:58 Dose: 1 spray Promethazine HCl (Phenergan) 12.5 mg IM Q4H PRN PRN Reason: Nausea/Vomiting Sodium Chloride (Flush - Normal Saline) 10 ml IVF PRN PRN PRN Reason: Saline Flush Zolpidem Tartrate (Ambien) 5 mg PO HSPRN PRN PRN Reason: Insomnia
[2018-12-28] MEDS ORDERED: Iopamidol 370 76% 50 ML VIAL FS ONE (11:42)
[2018-12-28] MEDS ORDERED: ISOVUE-370 76%-LOCM 1 ML ONE (11:42)
--- NOTE | 2018-12-28 12:23 | PDOC.GSPN ---
Surgery Progress Note: Subj - Subjective Narrative: Pain improved today. No nausea Surgery Progress Note: Obj - Vital signs Vital signs: Vital Signs - Most Recent Temp Pulse Resp BP Pulse Ox 98.6 F 76 22 H 181/71 H 98 12/28/18 10:58 12/28/18 10:58 12/28/18 10:58 12/28/18 10:58 12/28/18 10:58 - Physical Exam General: no distress Cardiovascular: regular rate and rhythm Respiratory: clear to auscultation Abdomen: soft, appropriately tender Wound: healing well Surgery Progress Note: Results - Labs Result Diagrams: 12/28/18 02:55 12/28/18 02:55 Lab results: Laboratory Results - last 24 hr 12/28/18 12/28/18 12/28/18 02:55 02:55 05:23 WBC 15.4 H RBC 3.12 L Hgb 9.3 L Hct 28.6 L MCV 91.8 MCH 29.8 MCHC 32.5 RDW 15.3 H Plt Count 247 MPV 8.1 Neutrophils % 84.9 H Lymphocytes % 9.3 L Monocytes % 5.6 Eosinophils % 0.1 Basophils % 0.1 Neutrophils # 13.1 H Lymphocytes # 1.4 Monocytes # 0.9 H Eosinophils # 0.0 Basophils # 0.0 Sodium 135 L Potassium 3.5 Chloride 110 H Carbon Dioxide 18 L Anion Gap 11 BUN 18 Creatinine 0.71 Estimated GFR (MDRD) 83 Glucose 87 POC Glucose 98 Calcium 8.4 Total Bilirubin 5.6 H AST 62 H ALT 119 H Alkaline Phosphatase 142 Ammonia Serum Total Protein 5.3 L Albumin 2.7 L Globulin 2.6 Albumin/Globulin Ratio 1.0 L 12/28/18 12/28/18 05:25 12:01 WBC RBC Hgb Hct MCV MCH MCHC RDW Plt Count MPV Neutrophils % Lymphocytes % Monocytes % Eosinophils % Basophils % Neutrophils # Lymphocytes # Monocytes # Eosinophils # Basophils # Sodium Potassium Chloride Carbon Dioxide Anion Gap BUN Creatinine Estimated GFR (MDRD) Glucose POC Glucose 86 Calcium Total Bilirubin AST ALT Alkaline Phosphatase Ammonia 36 Serum Total Protein Albumin Globulin Albumin/Globulin Ratio Surgery Progress Note: A/P - Problem (1) Perforated duodenal ulcer with hemorrhage Current Visit: Yes Code(s): K26.6 - CHRONIC OR UNSP DUODENAL ULCER W BOTH HEMORRHAGE AND PERF Status: Acute - Plan Plan: Elevated Tbili/Lft's -CT shows no leak at gastro-j -HIDA scan to rule out biliary obstruction -will allow clears after HIDA
[2018-12-28] MEDS: diphenhydrAMINE 25 MG CAP PO PRN (18:12)
--- NOTE | 2018-12-28 18:45 | NM ---
Nuclear medicine hepatobiliary scan: DATE: 12/28/2018 HISTORY: 63-year-old female status post Billroth 2 surgery. Elevated bilirubin. Suspicious for biliary obstruc tion. TECHNIQUE: 4.7 mCi of technetium 99m-mebrofenin injected IV. Anterior dynamic scintigraphy performed for one hour. 4 hour delayed static image obtained. FINDINGS: There is uptake, but no washout of activity, at the liver. No activity in the common bile duct or bow el. No evidence of extravasation. In conjunction with the appearance on the recent CT, this is consistent with high-grade biliary obstruction. IMPRESSION: Evidence for high-grade biliary obstruction at the distal common bile duct/ampulla
[2018-12-28] MEDS: fentaNYL 75 mcg/hour Patch TD SCH (19:53)
[2018-12-28] MEDS ORDERED: [UNRECOGNIZED DRUG - OTHER] IV SCH (22:00)
[2018-12-28] MEDS ORDERED: [UNRECOGNIZED DRUG - OTHER] IV SCH ×2 (22:00)
[2018-12-28] MEDS ORDERED: MULTIVITAMINS IV SCH ×3 (22:00)
[2018-12-28] MEDS ORDERED: SODIUM ACETATE IV SCH ×3 (22:00)
[2018-12-28] MEDS ORDERED: POTASSIUM ACETATE IV SCH ×3 (22:00)
[2018-12-28] MEDS: Lisinopril 20 MG TAB PO SCH (22:05)
[2018-12-29] MEDS: Acetaminophen 1,000 MG in Premix Bag 1 BAG IVPB SCH ×3 (00:40→13:31)
[2018-12-29] MEDS: 1/2 NS w/KCL 20 mEq 1,000 ML IV SCH (00:43)
[2018-12-29] MEDS: Ondansetron PF 4 MG/2 ML Vial IVP PRN ×2 (02:44→12:20)
[2018-12-29] MEDS: HYDROmorphone 10 mg/100 ml CADD IVPB PRN (03:20)
[2018-12-29] MEDS: Promethazine HCl 25 MG/ML VIAL IM PRN ×2 (04:21→09:09)
[2018-12-29 06:16] LABS: ALT (SGPT) 77 U/L (8-55); AST (SGOT) 38 U/L (5-34); Albumin 2.7 g/dL (3.4-4.8); Alkaline Phosphatase 156 U/L (40-150); Anion Gap 11 mmol/L (10-20); BUN (Urea Nitrogen) 10 mg/dL (9.8-20.1); Bilirubin, Total 5.2 mg/dL (0.2-1.2); Calc. Creatinine Clearance 94 mL/min (70-130); Calcium 8.8 mg/dL (7.8-10.44); Carbon Dioxide 16 mmol/L (23-31); Chloride 107 mmol/L (98-107); Estimated GFR-MDRD Greater than 90; Globulin 2.8 g/dL (2.4-3.5); Glucose 118 mg/dL (80-115); Lipase 267 U/L (8-78); Protein, Total 5.5 g/dL (6.0-8.3); Sodium 131 mmol/L (136-145)
[2018-12-29 06:20] LABS: Potassium 2.8 mmol/L (3.5-5.1)
[2018-12-29 06:28] LABS: Band 3 % (5-11); Hemoglobin 9.9 g/dL (12.0-16.0); Hypochromia SLIGHT = 6-15 cells (100X) (0-5/hpf); Lymphocytes 2 % (21-51); MDiff Complete? YES; Mean Corpuscular HGB CONC 32.7 g/dL (32.0-36.0); Mean Corpuscular Hemoglobin 29.8 pg (27.0-31.0); Mean Corpuscular Volume 91.1 fL (78.0-98.0); Mean Platelet Volume 7.5 fL (7.4-10.4); Monocytes 2 % (0-10); Neutrophil 93 % (42-75); Platelet Count 286 thou/uL (130-400); Platelet Morphology Comment Appears Adequate; RBC Distribution Width 15.1 % (11.5-14.5); Red Blood Cell (RBC) Count 3.31 mill/uL (4.20-5.40); White Blood Cell (WBC) Count 16.1 thou/uL (4.8-10.8)
[2018-12-29] MEDS ORDERED: Potassium Chloride 40 MEQ in Premix Bag 1 BAG IVPB SCH (07:45)
[2018-12-29] MEDS: Lisinopril 20 MG TAB PO SCH (07:48)
[2018-12-29] MEDS: Gabapentin 300 MG CAP PO SCH ×2 (07:48→15:30)
[2018-12-29] MEDS: Pantoprazole 40 MG VIAL IVP SCH (07:50)
[2018-12-29 07:58] LABS: Magnesium 1.2 mg/dL (1.6-2.6)
[2018-12-29 08:03] LABS: Phosphorus 1.6 mg/dL (2.3-4.7)
[2018-12-29] MEDS ORDERED: Magnesium Sulfate 4 GM in Sodium Chloride 0.9% 250 ML 250 ML IVPB SCH (08:30)
[2018-12-29] MEDS ORDERED: Potassium Phosphate 30 MMOL in Sodium Chloride 0.9% 500 ML IVPB SCH (08:30)
[2018-12-29] MEDS: Potassium Chloride 40 MEQ in Sodium Chloride 0.45% 1,000 ML IV SCH (08:52)
[2018-12-29] MEDS: Potassium Chloride 20 MEQ in Premix Bag 1 BAG IVPB SCH ×2 (08:54→11:08)
[2018-12-29] MEDS: cloNIDine 0.1 MG TAB PO PRN ×2 (09:08→15:31)
[2018-12-29] MEDS ORDERED: Rocuronium Bromide 10 MG/ML (10ML VIAL) ONE (09:45)
[2018-12-29] MEDS ORDERED: Ondansetron PF 4 MG/2 ML Vial ONE (09:45)
[2018-12-29] MEDS ORDERED: Calcium Chloride 1 GM/10 ML Abboject SYRINGE ONE (09:45)
[2018-12-29] MEDS ORDERED: ePHEDrine 50 MG/ML VIAL ONE (09:45)
[2018-12-29] MEDS ORDERED: PROPOFOL 200 MG/20 ML VIAL ONE (09:45)
[2018-12-29] MEDS ORDERED: Succinylcholine Chloride 20 MG/ML 10 ml SYRINGE FS ONE (09:45)
[2018-12-29] MEDS ORDERED: Lidocaine 1% PF 5 ML VIAL ONE (09:45)
[2018-12-29] MEDS ORDERED: PHENYLEPHRINE-NS 100 MCG/ML 10 ML SYRINGE ONE (09:45)
[2018-12-29] MEDS ORDERED: Esmolol 100 MG/10 ML VIAL ONE (09:45)
[2018-12-29] MEDS ORDERED: Glycopyrrolate 0.2 MG/ML 5 ML SYRINGE ONE (09:45)
--- NOTE | 2018-12-29 10:02 | PDOC.PN ---
- Subjective Encounter Start Date: 12/29/18 Encounter Start Time: 08:40 today pt has abdominal cramping pain, no fever - Objective Resuscitation Status - Order Detail: 12/24/18 21:39 Resuscitation Status Routine Resuscitation Status: FULL: Full Resuscitation MAR Reviewed: Yes Vital Signs & Weight: Vital Signs (12 hours) Temp Pulse Resp BP BP Pulse Ox 12/29/18 09:08 195/76 H 12/29/18 07:48 196/85 H 12/29/18 07:44 98.4 F 92 20 196/85 H 94 L 12/29/18 06:40 87 170/67 H 12/29/18 04:42 98.5 F 86 18 210/87 H 95 12/29/18 00:59 99.3 F 93 18 172/71 H 95 12/28/18 22:05 162/64 H Weight Admit Weight 125 lb 3.2 oz Weight 125 lb 3.2 oz I&O: 12/28/18 12/29/18 12/30/18 06:59 06:59 06:59 Intake Total 1450 2521 Output Total 1185 2950 Balance 265 -429 Result Diagrams: 12/29/18 05:40 12/29/18 05:40 Additional Labs: Accuchecks 12/29/18 12/28/18 12/28/18 00:42 22:19 18:06 POC Glucose 108 69 L 69 L 12/28/18 12:01 POC Glucose 86 Radiology Reviewed by me: Yes (HIDA scan and CT abdomen noted) Phys Exam - Physical Examination Constitutional: NAD HEENT: PERRLA, moist MMs, sclera anicteric Neck: no JVD, supple Respiratory: no wheezing, no rales, no rhonchi Cardiovascular: RRR, no significant murmur, no rub Gastrointestinal: soft, non-tender, no distention, positive bowel sounds drain+, surgical site with dressing Musculoskeletal: no edema, pulses present Neurological: non-focal, normal sensation Lymphatic: no nodes Psychiatric: normal affect, A&O x 3 Skin: no rash, normal turgor Dx/Plan (1) Upper GI bleed Code(s): K92.2 - GASTROINTESTINAL HEMORRHAGE, UNSPECIFIED Status: Acute (2) Anemia due to acute blood loss Code(s): D62 - ACUTE POSTHEMORRHAGIC ANEMIA Status: Acute Comment: s/p total 3 unit PRBC (3) Perforated duodenal ulcer with hemorrhage Code(s): K26.6 - CHRONIC OR UNSP DUODENAL ULCER W BOTH HEMORRHAGE AND PERF Status: Acute Comment: required surgical repair this admission (4) S/P bypass gastrojejunostomy Code(s): Z98.0 - INTESTINAL BYPASS AND ANASTOMOSIS STATUS Status: Acute (5) Abnormal LFTs Code(s): R94.5 - ABNORMAL RESULTS OF LIVER FUNCTION STUDIES Status: Acute Comment: due to billiary obstruction (6) Hypophosphatemia Code(s): E83.39 - OTHER DISORDERS OF PHOSPHORUS METABOLISM Status: Acute (7) Hypomagnesemia Code(s): E83.42 - HYPOMAGNESEMIA Status: Acute (8) Hypokalemia Code(s): E87.6 - HYPOKALEMIA Status: Acute (9) Chronic pain disorder Code(s): G89.4 - CHRONIC PAIN SYNDROME Status: Chronic (10) Diabetes type 2, controlled Code(s): E11.9 - TYPE 2 DIABETES MELLITUS WITHOUT COMPLICATIONS Status: Chronic (11) Dyslipidemia Code(s): E78.5 - HYPERLIPIDEMIA, UNSPECIFIED Status: Chronic (12) HTN (hypertension) Code(s): I10 - ESSENTIAL (PRIMARY) HYPERTENSION Status: Chronic Qualifiers: Comment: labile control (13) Neuropathic pain Status: Chronic (14) Obesity (BMI 30.0-34.9) Code(s): E66.9 - OBESITY, UNSPECIFIED Status: Chronic (15) PUD (peptic ulcer disease) Code(s): K27.9 - PEPTIC ULC, SITE UNSP, UNSP AC OR CHR, W/O HEMOR OR PERF Status: Chronic (16) Restless leg syndrome Status: Chronic - Plan cont current plan of care, plan discussed w/ family * 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 Review of Systems - Review of Systems ENT: negative: Ear Pain, Ear Discharge, Nose Pain, Nose Discharge, Nose Congestion, Mouth Pain, Mouth Swelling, Throat Pain, Throat Swelling, Other Respiratory: negative: Cough, Dry, Shortness of Breath, Hemoptysis, SOB with Excertion, Pleuritic Pain, Sputum, Wheezing Cardiovascular: negative: chest pain, palpitations, orthopnea, paroxysmal nocturnal dyspnea, edema, light headedness, other Gastrointestinal: Abdominal Pain. negative: Nausea, Vomiting, Diarrhea, Constipation, Melena, Hematochezia, Other Genitourinary: negative: Dysuria, Frequency, Incontinence, Hematuria, Retention , Other Musculoskeletal: negative: Neck Pain, Shoulder Pain, Arm Pain, Back Pain, Hand Pain, Leg Pain, Foot Pain, Other Skin: negative: Rash, Lesions, Joe, Bruising, Other - Medications/Allergies Allergies/Adverse Reactions: Allergies Allergy/AdvReac Type Severity Reaction Status Date / Time ciprofloxacin Allergy Verified 11/06/18 19:36 Medications: Current Medications Albuterol/Ipratropium (Duoneb) 3 ml NEB Q4H PRN PRN Reason: Wheezing Clonidine (Catapres) 0.1 mg PO Q4H PRN PRN Reason: SBP Greater Than 180 Last Admin: 12/29/18 09:08 Dose: 0.1 mg Clonidine (Wmutjbah-Qpn-5) 0.2 mg TD Q7D [facility] Last Admin: 12/26/18 18:09 Dose: 0.2 mg Dextrose/Water (Dextrose 50%) 25 gm SLOW IVP PRN PRN PRN Reason: Hypoglycemia Diphenhydramine HCl (Benadryl) 25 mg IVP Q3H PRN PRN Reason: Itching Diphenhydramine HCl (Benadryl) 25 mg PO Q3H PRN PRN Reason: Itching Last Admin: 12/28/18 18:12 Dose: 25 mg Diphenhydramine HCl (Benadryl) 25 mg IM Q3H PRN PRN Reason: Itching Fentanyl (Duragesic) 75 mcg TD Q3D [facility] Last Admin: 12/28/18 19:53 Dose: Not Given Gabapentin (Neurontin) 600 mg PO TID [facility] Last Admin: 12/29/18 07:48 Dose: 600 mg Glucagon (Glucagon) 1 mg IM PRN PRN PRN Reason: Hypoglycemia Hydralazine HCl (Apresoline) 10 mg SLOW IVP Q2H PRN PRN Reason: SBP > 170 or DBP > 100 Hydromorphone HCl (Dilaudid Cadd) 0 mg IVPB INF PRN PRN Reason: Pain Last Admin: 12/29/18 03:20 Dose: 10 mg Dextrose/Water (D5w) 1,000 mls @ 0 mls/hr IV .Q0M PRN PRN Reason: Hypoglycemia Acetaminophen 1,000 mg/ Device 100 mls @ 400 mls/hr IVPB Q6HR [facility] Stop: 12/29/18 18:01 Last Admin: 12/29/18 06:56 Dose: 100 mls Sodium Acetate 40 meq/Potassium Acetate 20 meq/Multivitamins 10 ml/ Chromium/ Copper/Manganese/Seleni/Zn 5 ml/ Amino Acids/Electrolytes/Fat Emulsion Intravenous 2,295 mls @ 95.625 mls/hr IV 2200 [facility] Last Admin: 12/28/18 22:13 Dose: 2,295 mls Potassium Chloride 40 meq/ (Sodium Chloride) 1,020 mls @ 50 mls/hr IV .[id number] [facility] Last Admin: 12/29/18 08:52 Dose: 1,020 mls Potassium Chloride 20 meq/ (Device) 100 mls @ 50 mls/hr IVPB Q2H [facility] Stop: 12/29/18 12:59 Last Admin: 12/29/18 08:54 Dose: 100 mls Magnesium Sulfate 4 gm/ Sodium (Chloride) 258 mls @ 86 mls/hr IVPB [facility] Potassium Phosphate 30 mmol/ (Sodium Chloride) 510 mls @ 83.3 mls/hr IVPB [facility] Insulin Human Lispro (Humalog) 0 units SC .MODERATE SLIDING SC PRN PRN Reason: Moderate Correctional Scale Labetalol HCl (Normodyne) 20 mg SLOW IVP Q2H PRN PRN Reason: SBP Greater Than 180 Last Admin: 12/27/18 18:09 Dose: 20 mg Lisinopril (Zestril) 20 mg PO BID [facility] Last Admin: 12/29/18 07:48 Dose: 20 mg Naloxone HCl (Narcan) 0.2 mg IV Q5MIN PRN PRN Reason: Opiate Reversal Ondansetron HCl (Zofran) 4 mg IVP Q6H PRN PRN Reason: Nausea/Vomiting Last Admin: 12/29/18 02:44 Dose: 4 mg Pantoprazole Sodium (Protonix) 40 mg IVP Q12HR [facility] Last Admin: 12/29/18 07:50 Dose: 40 mg Phenol (Chloraseptic [place] 180 Ml Bot) 0 ml PO Q4H PRN PRN Reason: Sore Throat Last Admin: 12/27/18 01:58 Dose: 1 spray Promethazine HCl (Phenergan) 12.5 mg IM Q4H PRN PRN Reason: Nausea/Vomiting Last Admin: 12/29/18 09:09 Dose: 12.5 mg Sodium Chloride (Flush - Normal Saline) 10 ml IVF PRN PRN PRN Reason: Saline Flush Zolpidem Tartrate (Ambien) 5 mg PO HSPRN PRN PRN Reason: Insomnia
[2018-12-29] MEDS: Labetalol HCl 100 MG/20 ML VIAL SLOW IVP PRN (12:07)
[2018-12-29] MEDS: Acetaminophen 325 MG TAB PO PRN (15:30)
[2018-12-29] MEDS ORDERED: cefOXitin 2 GM VIAL ONE (18:43)
[2018-12-29] MEDS ORDERED: Sodium Chloride 0.9% 100 ML ONE (18:44)
[2018-12-29] MEDS ORDERED: cefOXitin Sodium/Dextrose,Iso 2 GM in Premix Bag 1 BAG IVPB SCH (18:45)
[2018-12-29] MEDS ORDERED: HYDROmorphone 2 MG/ML VIAL ONE ×2 (19:10→21:37)
[2018-12-29] MEDS ORDERED: Fentanyl 100 MCG/2 ML VIAL ONE (19:10)
[2018-12-29] MEDS ORDERED: Lidocaine 2% Jelly 5 ML TUBE ONE (19:10)
--- NOTE | 2018-12-29 19:35 | PDOC.EVN ---
Event Note - Event Note Event Note: Patient complaining of increased pain all day with periods of tachycardia. Her pain is in the central abdomen. CT with oral contrast showed no leak yesterday. There was evidence of biliary obstruction likely from edema or bile duct injury. HIDA showed no uptake in distal duodenum. Plan washout tonight. Her drain in the right upper quadrant is not in ideal location with small fluid collection around the duodenal stump. Risks, benefits discussed. Family and patient consent.
[2018-12-29] MEDS ORDERED: SUGAMMADEX SODIUM 200 MG/2 ML VIAL ONE (21:12)
[2018-12-29] MEDS ORDERED: Promethazine HCl 25 MG/ML VIAL SLOW IVP PRN (21:32)
[2018-12-29] MEDS ORDERED: Promethazine HCl 25 MG/ML VIAL IM PRN (21:32)
[2018-12-29] MEDS ORDERED: HYDROmorphone 2 MG/ML VIAL SLOW IVP PRN (21:32)
[2018-12-29] MEDS ORDERED: Ondansetron HCl/PF 4 MG/2 ML Vial IVP PRN (21:32)
[2018-12-29] MEDS: FAT EMULSIONS IV SCH (22:38)
[2018-12-29] MEDS: SODIUM ACETATE IV SCH (22:38)
[2018-12-29] MEDS: SODIUM CHLORIDE IV SCH (22:38)
[2018-12-29] MEDS: [UNRECOGNIZED DRUG - OTHER] IV SCH (22:38)
[2018-12-29 23:27] LABS: Hemoglobin 7.9 g/dL (12.0-16.0)
[2018-12-29] MEDS ORDERED: Sodium Chloride 0.9% 1,000 ML IV SCH (23:59)
[2018-12-30] MEDS: Pantoprazole 40 MG VIAL IVP SCH ×3 (00:12→20:57)
[2018-12-30] MEDS ORDERED: Acetaminophen 1,000 MG in Premix Bag 1 BAG IVPB SCH (00:30)
[2018-12-30] MEDS: HumaLOG 300 UNITS/3 ML VIAL SC PRN ×4 (00:38→18:43)
[2018-12-30] MEDS: HYDROmorphone 10 mg/100 ml CADD IVPB PRN ×2 (01:01→16:20)
[2018-12-30] MEDS: Lisinopril 20 MG TAB PO SCH (01:26)
[2018-12-30] MEDS: Gabapentin 300 MG CAP PO SCH (01:26)
--- NOTE | 2018-12-30 02:25 | OP ---
DATE OF PROCEDURE: 12/29/2018 PREOPERATIVE DIAGNOSES: Peritonitis, abdominal pain. PROCEDURES PERFORMED: Abdominal washout and placement of new abdominal drain. ANESTHESIA: General. ESTIMATED BLOOD LOSS: 600 mL. COMPLICATIONS: None. FINDINGS: There was severe pancreatitis with fat saponification in the right upper quadrant area from previous surgery. The duodenal stump was opened to look for the ampulla and although there is a small amount of bile present. The ampulla cannot be seen secondary to the severe inflammatory change. There was no bile in the abdomen. INDICATIONS FOR PROCEDURE: The patient is a 63-year-old female, who presents after having emergent exploratory laparotomy, antrectomy, and gastrojejunostomy on Wednesday for perforated chronic duodenal ulcer that was found to have significant local inflammatory change in the right upper quadrant with significant inflammation in the retroperitoneum. Her postop course has been complicated by her severe abdominal pain. She has a history of chronic abdominal pain, which just made pain control very difficult. Today, she was doing well on morning rounds; however, developed progressive increased abdominal distention and severe pain. She was crying out for help constantly. She did have CT scan of the abdomen and pelvis yesterday with oral contrast, which showed no obvious leak from her gastro J. There was a small amount of fluid around the duodenum and there was evidence of biliary dilation. She also had a HIDA scan at that time, which showed no contrast flow or no radioactive uptake in the duodenum. However, her bilirubin had trended down this morning on morning labs. DESCRIPTION OF PROCEDURE: The patient was taken to the operating room and laid supine on the operating room table. After general anesthetic was obtained, the abdomen was re-prepped and draped in a sterile fashion. The hannah were removed. The abdominal cavity was entered. There was no evidence of infection in the abdomen. There was some turbid-appearing fluid in the right upper quadrant consistent with the pancreatitis, but no bile. The gastrojejunostomy was intact evidence of leak. There was no stenosis. There was no ischemia in any intra-abdominal structures. There was severe inflammatory change to the pancreatic head, much more pronounced than on initial laparotomy. Her duodenal stump was intact. Due to the significant retroperitoneal inflammatory change, the bile duct was hard to differentiate and dissect down and there was some bleeding. Anytime any of this dissection was to be performed. On the superior aspect of the pancreatic head and area of previous antrectomy, there was a venous bleeder, where a significant amount of blood loss occurred and controlled. This was finally controlled using silk suture. Surgicel was left in this area. The duodenum was mobilized around from the second to the third portion of the duodenum. The end of the staple line was opened. The attempts were made to find the ampulla, but it was difficult given the significant local inflammatory change. There was a small amount of bile in the duodenal stump. The duodenal stump was then closed using running PDS suture. A new 19 round drain was brought in and lift on the lateral edge of the duodenum and sewn in place using 2-0 silk. The abdomen had been irrigated copiously using sterile solution. Midline fascia was closed using #1 PDS from the top and the bottom, and tied in the middle. An NG tube had been brought back down and left in the stomach. Subcutaneous tissues were irrigated copiously using sterile solution. The skin was closed using skin clips. Telfa young were left in between the hannah. Sterile dressings were placed. The patient was sent to Recovery in stable condition. Job ID: [id number]
[2018-12-30] MEDS: Potassium Chloride 40 MEQ in Sodium Chloride 0.45% 1,000 ML IV SCH (06:53)
[2018-12-30 07:01] LABS: #Lymphocytes 0.7 thou/uL (1.20-3.40); #Monocytes 0.8 thou/uL (0.11-0.59); #Neutrophils 13.7 thou/uL (1.40-6.50); %Basophils 0.1 % (0.0-1.0); %Eosinophils 0.1 % (0.0-10.0); %Lymphocytes 4.5 % (21.0-51.0); %Monocytes 5.3 % (0.0-10.0); Mean Corpuscular HGB CONC 34.5 g/dL (32.0-36.0); Mean Corpuscular Hemoglobin 30.8 pg (27.0-31.0); Mean Corpuscular Volume 89.4 fL (78.0-98.0); Mean Platelet Volume 8.1 fL (7.4-10.4); Platelet Count 262 thou/uL (130-400); RBC Distribution Width 14.8 % (11.5-14.5); Red Blood Cell (RBC) Count 3.23 mill/uL (4.20-5.40); White Blood Cell (WBC) Count 15.2 thou/uL (4.8-10.8)
[2018-12-30 07:29] LABS: ALT (SGPT) 53 U/L (8-55); AST (SGOT) 41 U/L (5-34); Albumin 2.2 g/dL (3.4-4.8); Alkaline Phosphatase 143 U/L (40-150); Anion Gap 10 mmol/L (10-20); BUN (Urea Nitrogen) 14 mg/dL (9.8-20.1); Bilirubin, Total 6.1 mg/dL (0.2-1.2); Calc. Creatinine Clearance 91 mL/min (70-130); Carbon Dioxide 17 mmol/L (23-31); Chloride 110 mmol/L (98-107); Estimated GFR-MDRD Greater than 90; Globulin 2.5 g/dL (2.4-3.5); Glucose 204 mg/dL (80-115); Lipase 41 U/L (8-78); Magnesium 1.4 mg/dL (1.6-2.6); Phosphorus 2.3 mg/dL (2.3-4.7); Potassium 3.8 mmol/L (3.5-5.1); Protein, Total 4.7 g/dL (6.0-8.3); Sodium 133 mmol/L (136-145)
[2018-12-30] MEDS ORDERED: Magnesium Sulfate 3 GM in Sodium Chloride 0.9% 100 ML IVPB SCH (09:00)
[2018-12-30] MEDS: fentaNYL 75 mcg/hour Patch TD SCH (09:42)
[2018-12-30] MEDS: Labetalol HCl 100 MG/20 ML VIAL SLOW IVP PRN ×2 (09:44→14:24)
--- NOTE | 2018-12-30 12:31 | PDOC.GSPN ---
Surgery Progress Note: Subj - Subjective Narrative: Feels better today Surgery Progress Note: Obj - Vital signs Vital signs: Vital Signs - Most Recent Temp Pulse Resp BP Pulse Ox 98.5 F 89 20 181/79 H 100 12/30/18 11:22 12/30/18 11:22 12/30/18 11:22 12/30/18 11:22 12/30/18 11:22 - Physical Exam General: no distress Abdomen: soft, appropriately tender Wound: dressing clean,dry,intact Surgery Progress Note: Results - Labs Result Diagrams: 12/30/18 06:25 12/30/18 06:25 Lab results: Laboratory Results - last 24 hr 12/29/18 12/30/18 12/30/18 23:59 05:41 06:25 WBC RBC Hgb Hct MCV MCH MCHC RDW Plt Count MPV Neutrophils % Lymphocytes % Monocytes % Eosinophils % Basophils % Neutrophils # Lymphocytes # Monocytes # Eosinophils # Basophils # Sodium 133 L Potassium 3.8 Chloride 110 H Carbon Dioxide 17 L Anion Gap 10 BUN 14 Creatinine 0.57 L Estimated GFR (MDRD) Greater than 90 Glucose 204 H POC Glucose 227 H Calcium 8.0 Phosphorus 2.3 Magnesium 1.4 L Total Bilirubin 6.1 H AST 41 H ALT 53 Alkaline Phosphatase 143 Serum Total Protein 4.7 L Albumin 2.2 L Globulin 2.5 Albumin/Globulin Ratio 0.9 L Lipase 41 Blood Type O POSITIVE Antibody Screen NEGATIVE Crossmatch See Detail 12/30/18 12/30/18 06:25 10:23 WBC 15.2 H RBC 3.23 L Hgb 10.0 L Hct 28.9 L MCV 89.4 MCH 30.8 MCHC 34.5 RDW 14.8 H Plt Count 262 MPV 8.1 Neutrophils % 90.0 H Lymphocytes % 4.5 L Monocytes % 5.3 Eosinophils % 0.1 Basophils % 0.1 Neutrophils # 13.7 H Lymphocytes # 0.7 L Monocytes # 0.8 H Eosinophils # 0.0 Basophils # 0.0 Sodium Potassium Chloride Carbon Dioxide Anion Gap BUN Creatinine Estimated GFR (MDRD) Glucose POC Glucose 217 H Calcium Phosphorus Magnesium Total Bilirubin AST ALT Alkaline Phosphatase Serum Total Protein Albumin Globulin Albumin/Globulin Ratio Lipase Blood Type Antibody Screen Crossmatch Surgery Progress Note: A/P - Problem (1) Perforated duodenal ulcer with hemorrhage Current Visit: Yes Code(s): K26.6 - CHRONIC OR UNSP DUODENAL ULCER W BOTH HEMORRHAGE AND PERF Status: Acute - Plan Plan: s/p re-exploration, drain placement -cont tpn supportive care -cont to follow bilirubin level
--- NOTE | 2018-12-30 12:47 | PDOC.PN ---
- Subjective Encounter Start Date: 12/30/18 Encounter Start Time: 08:15 today pt feels better, pain controlled, no fever Patient seen and examined. No overnight events - Objective Resuscitation Status - Order Detail: 12/24/18 21:39 Resuscitation Status Routine Resuscitation Status: FULL: Full Resuscitation MAR Reviewed: Yes Vital Signs & Weight: Vital Signs (12 hours) Temp Pulse Pulse Resp BP BP BP 12/30/18 11:22 98.5 F 89 20 181/79 H 12/30/18 09:44 114 H 183/76 H 12/30/18 07:59 98 F 104 H 20 179/89 H 12/30/18 04:35 97.7 F 106 H 15 128/74 12/30/18 02:05 98.3 F 118 H 26 H 100/61 12/30/18 01:50 98.2 F 115 H 26 H 103/45 L Pulse Ox 12/30/18 11:22 100 12/30/18 09:44 12/30/18 07:59 100 12/30/18 04:35 100 12/30/18 02:05 100 12/30/18 01:50 100 Weight Admit Weight 125 lb 3.2 oz Weight 125 lb 3.2 oz I&O: 12/29/18 12/30/18 12/31/18 06:59 06:59 06:59 Intake Total 2521 1995 935 Output Total 2950 2630 825 Balance -429 -635 110 Result Diagrams: 12/30/18 06:25 12/30/18 06:25 Additional Labs: Accuchecks 12/30/18 12/30/18 12/29/18 10:23 05:41 23:47 POC Glucose 217 H 227 H 278 H 12/29/18 17:48 POC Glucose 284 H Phys Exam - Physical Examination Constitutional: NAD HEENT: PERRLA, moist MMs, sclera anicteric NG tube+ Neck: no JVD, supple Respiratory: no wheezing, no rales, no rhonchi Cardiovascular: RRR, no significant murmur, no rub surgical site with dressing, drain+ Musculoskeletal: no edema, pulses present Neurological: non-focal, normal sensation Lymphatic: no nodes Psychiatric: normal affect, A&O x 3 Skin: no rash, normal turgor Dx/Plan (1) Upper GI bleed Code(s): K92.2 - GASTROINTESTINAL HEMORRHAGE, UNSPECIFIED Status: Acute (2) Anemia due to acute blood loss Code(s): D62 - ACUTE POSTHEMORRHAGIC ANEMIA Status: Acute Comment: s/p total 3 unit PRBC (3) Perforated duodenal ulcer with hemorrhage Code(s): K26.6 - CHRONIC OR UNSP DUODENAL ULCER W BOTH HEMORRHAGE AND PERF Status: Acute Comment: required surgical repair this admission (4) S/P bypass gastrojejunostomy Code(s): Z98.0 - INTESTINAL BYPASS AND ANASTOMOSIS STATUS Status: Acute Comment: s/p re exploration of abdomen and wash out 12/29/18 (5) Abnormal LFTs Code(s): R94.5 - ABNORMAL RESULTS OF LIVER FUNCTION STUDIES Status: Acute Comment: due to billiary obstruction (6) Hypophosphatemia Code(s): E83.39 - OTHER DISORDERS OF PHOSPHORUS METABOLISM Status: Acute (7) Hypomagnesemia Code(s): E83.42 - HYPOMAGNESEMIA Status: Acute (8) Hypokalemia Code(s): E87.6 - HYPOKALEMIA Status: Acute (9) Chronic pain disorder Code(s): G89.4 - CHRONIC PAIN SYNDROME Status: Chronic (10) Diabetes type 2, controlled Code(s): E11.9 - TYPE 2 DIABETES MELLITUS WITHOUT COMPLICATIONS Status: Chronic (11) Dyslipidemia Code(s): E78.5 - HYPERLIPIDEMIA, UNSPECIFIED Status: Chronic (12) HTN (hypertension) Code(s): I10 - ESSENTIAL (PRIMARY) HYPERTENSION Status: Chronic Qualifiers: Comment: labile control (13) Neuropathic pain Status: Chronic (14) Obesity (BMI 30.0-34.9) Code(s): E66.9 - OBESITY, UNSPECIFIED Status: Chronic (15) PUD (peptic ulcer disease) Code(s): K27.9 - PEPTIC ULC, SITE UNSP, UNSP AC OR CHR, W/O HEMOR OR PERF Status: Chronic (16) Restless leg syndrome Status: Chronic - Plan cont current plan of care, plan discussed w/ family, incentive spirometry * currently NPO * continue GUM WORKER for pain control * continue TPN * medication reviewed as below * symptomatic treatment * discussed with family * replace magnesium. Review of Systems - Review of Systems Eyes: negative: Pain, Vision Change, Conjunctivae Inflammation, Eyelid Inflammation, Redness, Other ENT: negative: Ear Pain, Ear Discharge, Nose Pain, Nose Discharge, Nose Congestion, Mouth Pain, Mouth Swelling, Throat Pain, Throat Swelling, Other Respiratory: negative: Cough, Dry, Shortness of Breath, Hemoptysis, SOB with Excertion, Pleuritic Pain, Sputum, Wheezing Cardiovascular: negative: chest pain, palpitations, orthopnea, paroxysmal nocturnal dyspnea, edema, light headedness, other Gastrointestinal: Abdominal Pain. negative: Nausea, Vomiting, Diarrhea, Constipation, Melena, Hematochezia, Other Genitourinary: negative: Dysuria, Frequency, Incontinence, Hematuria, Retention , Other Musculoskeletal: negative: Neck Pain, Shoulder Pain, Arm Pain, Back Pain, Hand Pain, Leg Pain, Foot Pain, Other - Medications/Allergies Allergies/Adverse Reactions: Allergies Allergy/AdvReac Type Severity Reaction Status Date / Time ciprofloxacin Allergy Verified 11/06/18 19:36 Medications: Current Medications Acetaminophen (Tylenol) 650 mg PO Q6H PRN PRN Reason: Pain Last Admin: 12/29/18 15:30 Dose: 650 mg Albuterol/Ipratropium (Duoneb) 3 ml NEB Q4H PRN PRN Reason: Wheezing Clonidine (Catapres) 0.1 mg PO Q4H PRN PRN Reason: SBP Greater Than 180 Last Admin: 12/29/18 15:31 Dose: 0.1 mg Clonidine (Pdyfbdyk-Khk-2) 0.2 mg TD Q7D [facility] Last Admin: 12/26/18 18:09 Dose: 0.2 mg Dextrose/Water (Dextrose 50%) 25 gm SLOW IVP PRN PRN PRN Reason: Hypoglycemia Diphenhydramine HCl (Benadryl) 25 mg IVP Q3H PRN PRN Reason: Itching Diphenhydramine HCl (Benadryl) 25 mg PO Q3H PRN PRN Reason: Itching Last Admin: 12/28/18 18:12 Dose: 25 mg Diphenhydramine HCl (Benadryl) 25 mg IM Q3H PRN PRN Reason: Itching Last Admin: 12/29/18 11:11 Dose: 25 mg Fentanyl (Duragesic) 75 mcg TD Q3D [facility] Last Admin: 12/30/18 09:42 Dose: 75 mcg Glucagon (Glucagon) 1 mg IM PRN PRN PRN Reason: Hypoglycemia Hydralazine HCl (Apresoline) 10 mg SLOW IVP Q2H PRN PRN Reason: SBP > 170 or DBP > 100 Hydromorphone HCl (Dilaudid Cadd) 0 mg IVPB INF PRN PRN Reason: Pain Last Admin: 12/30/18 01:01 Dose: 10 mg Dextrose/Water (D5w) 1,000 mls @ 0 mls/hr IV .Q0M PRN PRN Reason: Hypoglycemia Potassium Chloride 40 meq/ (Sodium Chloride) 1,020 mls @ 50 mls/hr IV .[id number] [facility] Last Admin: 12/30/18 06:53 Dose: 1,020 mls Fat Emulsion Intravenous 100 ml/ Sodium Acetate 40 meq/Sodium Chloride 30 meq/ Potassium Chloride 20 meq/Potassium Phosphate 30 mmol/Calcium Gluconate 10 meq/ Magnesium Sulfate 10 meq/Multivitamins 10 ml/ Chromium/Copper/Manganese/Seleni/ Zn 5 ml/ Dextrose/Water/ Sterile Water/ Amino Acids 1,086.7021 mls @ 45.279 mls /hr IV 2200 [facility] Last Admin: 12/29/18 22:38 Dose: 1,086.7021 mls Cefoxitin Sodium/Dextrose 2 gm (/ Device) 50 mls @ 100 mls/hr IVPB [facility] Stop: 12/30/18 18:46 Insulin Human Lispro (Humalog) 0 units SC .MODERATE SLIDING SC PRN PRN Reason: Moderate Correctional Scale Last Admin: 12/30/18 11:19 Dose: 4 unit Labetalol HCl (Normodyne) 20 mg SLOW IVP Q2H PRN PRN Reason: SBP Greater Than 180 Last Admin: 12/30/18 09:44 Dose: 20 mg Naloxone HCl (Narcan) 0.2 mg IV Q5MIN PRN PRN Reason: Opiate Reversal Ondansetron HCl (Zofran) 4 mg IVP Q6H PRN PRN Reason: Nausea/Vomiting Last Admin: 12/29/18 12:20 Dose: 4 mg Pantoprazole Sodium (Protonix) 40 mg IVP Q12HR [facility] Last Admin: 12/30/18 09:44 Dose: 40 mg Phenol (Chloraseptic [place] 180 Ml Bot) 0 ml PO Q4H PRN PRN Reason: Sore Throat Last Admin: 12/27/18 01:58 Dose: 1 spray Promethazine HCl (Phenergan) 12.5 mg IM Q4H PRN PRN Reason: Nausea/Vomiting Last Admin: 12/29/18 09:09 Dose: 12.5 mg Sodium Chloride (Flush - Normal Saline) 10 ml IVF PRN PRN PRN Reason: Saline Flush
--- NOTE | 2018-12-30 14:55 | PDOC.PALFU ---
Palliative Care Follow-up Note Follow up visit with Palliative Care RN Jonathan Corrigan. Patient and 5 family members in room, patient in hospital bed. Although remains in pain states she feels a decrease in discomfort. Encouraged oral care as non pharmacological measure to promote comfort. Will continue to follow and support to manage symptoms. Consideration for antidepressant to facilitate management of chronic pain.
[2018-12-30] MEDS: hydrALAZINE 20 MG/ML VIAL SLOW IVP PRN ×2 (15:35→20:56)
[2018-12-30] MEDS: diphenhydrAMINE 50 MG/ML VIAL IVP PRN (15:37)
[2018-12-30] MEDS: Ondansetron PF 4 MG/2 ML Vial IVP PRN (20:56)
[2018-12-30] MEDS: [UNRECOGNIZED DRUG - OTHER] IV SCH (22:42)
[2018-12-30] MEDS: SODIUM CHLORIDE IV SCH (22:42)
[2018-12-30] MEDS: SODIUM ACETATE IV SCH (22:42)
[2018-12-30] MEDS: FAT EMULSIONS IV SCH (22:42)
[2018-12-30] MEDS: Chloraseptic Spray 180 ml Bottle PO PRN (23:39)
[2018-12-31] MEDS: Lorazepam 2 MG/ML VIAL SLOW IVP PRN ×3 (00:03→21:55)
[2018-12-31] MEDS: HumaLOG 300 UNITS/3 ML VIAL SC PRN ×4 (00:16→19:00)
[2018-12-31] MEDS: Chloraseptic Spray 180 ml Bottle PO PRN (05:25)
[2018-12-31 06:37] LABS: ALT (SGPT) 49 U/L (8-55); AST (SGOT) 53 U/L (5-34); Albumin 2.3 g/dL (3.4-4.8); Alkaline Phosphatase 241 U/L (40-150); Anion Gap 12 mmol/L (10-20); BUN (Urea Nitrogen) 15 mg/dL (9.8-20.1); Bilirubin, Total 6.9 mg/dL (0.2-1.2); Calc. Creatinine Clearance 91 mL/min (70-130); Calcium 8.4 mg/dL (7.8-10.44); Carbon Dioxide 19 mmol/L (23-31); Chloride 108 mmol/L (98-107); Estimated GFR-MDRD Greater than 90; Globulin 2.9 g/dL (2.4-3.5); Glucose 189 mg/dL (80-115); Potassium 3.6 mmol/L (3.5-5.1); Protein, Total 5.2 g/dL (6.0-8.3); Sodium 135 mmol/L (136-145)
[2018-12-31] MEDS: Potassium Chloride 40 MEQ in Sodium Chloride 0.45% 1,000 ML IV SCH ×2 (06:47→21:19)
[2018-12-31] MEDS: Pantoprazole 40 MG VIAL IVP SCH ×2 (08:30→21:19)
--- NOTE | 2018-12-31 10:24 | PDOC.PN ---
- Subjective Encounter Start Date: 12/31/18 Encounter Start Time: 08:30 last night pt was restless, unable to sleep, she was given ativan and after that she is resting, her sister present bedside - Objective Resuscitation Status - Order Detail: 12/24/18 21:39 Resuscitation Status Routine Resuscitation Status: FULL: Full Resuscitation MAR Reviewed: Yes Vital Signs & Weight: Vital Signs (12 hours) Temp Pulse Resp BP Pulse Ox 12/31/18 07:29 98.0 F 91 20 165/89 H 96 12/31/18 04:00 98.2 F 118 H 16 114/70 97 12/31/18 00:00 97.6 F 117 H 20 141/70 H 97 Weight Admit Weight 125 lb 3.2 oz Weight 125 lb 3.2 oz I&O: 12/30/18 12/31/18 01/01/19 06:59 06:59 06:59 Intake Total 4738 602 5978 Output Total 2630 1790 925 Balance -306 -443 395 Result Diagrams: 12/30/18 06:25 12/31/18 05:45 Additional Labs: Accuchecks 12/31/18 12/30/18 12/30/18 00:17 15:50 10:23 POC Glucose 228 H 194 H 217 H Phys Exam - Physical Examination Constitutional: NAD HEENT: PERRLA, sclera anicteric NF tube+ Neck: no JVD, supple central line+ Respiratory: no rales, wheezing present Cardiovascular: RRR, no significant murmur, no rub Gastrointestinal: soft, no distention surgical site with dressing, drain+ Musculoskeletal: no edema, pulses present Neurological: moves all 4 limbs Lymphatic: no nodes Skin: no rash, normal turgor Dx/Plan (1) Upper GI bleed Code(s): K92.2 - GASTROINTESTINAL HEMORRHAGE, UNSPECIFIED Status: Acute (2) Anemia due to acute blood loss Code(s): D62 - ACUTE POSTHEMORRHAGIC ANEMIA Status: Acute Comment: s/p total 4 unit PRBC (3) Perforated duodenal ulcer with hemorrhage Code(s): K26.6 - CHRONIC OR UNSP DUODENAL ULCER W BOTH HEMORRHAGE AND PERF Status: Acute Comment: required surgical repair this admission (4) S/P bypass gastrojejunostomy Code(s): Z98.0 - INTESTINAL BYPASS AND ANASTOMOSIS STATUS Status: Acute Comment: s/p re exploration of abdomen and wash out 12/29/18 (5) Abnormal LFTs Code(s): R94.5 - ABNORMAL RESULTS OF LIVER FUNCTION STUDIES Status: Acute Comment: due to billiary obstruction (6) Hypophosphatemia Code(s): E83.39 - OTHER DISORDERS OF PHOSPHORUS METABOLISM Status: Acute (7) Hypomagnesemia Code(s): E83.42 - HYPOMAGNESEMIA Status: Acute (8) Hypokalemia Code(s): E87.6 - HYPOKALEMIA Status: Acute (9) Chronic pain disorder Code(s): G89.4 - CHRONIC PAIN SYNDROME Status: Chronic (10) Diabetes type 2, controlled Code(s): E11.9 - TYPE 2 DIABETES MELLITUS WITHOUT COMPLICATIONS Status: Chronic (11) Dyslipidemia Code(s): E78.5 - HYPERLIPIDEMIA, UNSPECIFIED Status: Chronic (12) HTN (hypertension) Code(s): I10 - ESSENTIAL (PRIMARY) HYPERTENSION Status: Chronic Qualifiers: Comment: labile control (13) Neuropathic pain Status: Chronic (14) Obesity (BMI 30.0-34.9) Code(s): E66.9 - OBESITY, UNSPECIFIED Status: Chronic (15) PUD (peptic ulcer disease) Code(s): K27.9 - PEPTIC ULC, SITE UNSP, UNSP AC OR CHR, W/O HEMOR OR PERF Status: Chronic (16) Restless leg syndrome Status: Chronic - Plan cont current plan of care, plan discussed w/ family * continue TPN * continue [employer] * continue post operative care. * discussed with family bedside * medication reviewed as below * symptomatic treatment * add duoneb therapy as needed Review of Systems - Review of Systems Other: unable to review today due to sleepiness - Medications/Allergies Allergies/Adverse Reactions: Allergies Allergy/AdvReac Type Severity Reaction Status Date / Time ciprofloxacin Allergy Verified 11/06/18 19:36 Medications: Current Medications Acetaminophen (Tylenol) 650 mg PO Q6H PRN PRN Reason: Pain Last Admin: 12/29/18 15:30 Dose: 650 mg Albuterol/Ipratropium (Duoneb) 3 ml NEB Q4H PRN PRN Reason: Wheezing Clonidine (Catapres) 0.1 mg PO Q4H PRN PRN Reason: SBP Greater Than 180 Last Admin: 12/29/18 15:31 Dose: 0.1 mg Clonidine (Mirapsoz-Jyf-4) 0.2 mg TD Q7D [facility] Last Admin: 12/26/18 18:09 Dose: 0.2 mg Dextrose/Water (Dextrose 50%) 25 gm SLOW IVP PRN PRN PRN Reason: Hypoglycemia Diphenhydramine HCl (Benadryl) 25 mg IVP Q3H PRN PRN Reason: Itching Last Admin: 12/30/18 15:37 Dose: 25 mg Diphenhydramine HCl (Benadryl) 25 mg PO Q3H PRN PRN Reason: Itching Last Admin: 12/28/18 18:12 Dose: 25 mg Diphenhydramine HCl (Benadryl) 25 mg IM Q3H PRN PRN Reason: Itching Last Admin: 12/29/18 11:11 Dose: 25 mg Fentanyl (Duragesic) 75 mcg TD Q3D [facility] Last Admin: 12/30/18 09:42 Dose: 75 mcg Glucagon (Glucagon) 1 mg IM PRN PRN PRN Reason: Hypoglycemia Hydralazine HCl (Apresoline) 10 mg SLOW IVP Q2H PRN PRN Reason: SBP > 170 or DBP > 100 Last Admin: 12/30/18 20:56 Dose: 10 mg Hydromorphone HCl (Dilaudid Cadd) 0 mg IVPB INF PRN PRN Reason: Pain Last Admin: 12/30/18 16:20 Dose: 10 mg Dextrose/Water (D5w) 1,000 mls @ 0 mls/hr IV .Q0M PRN PRN Reason: Hypoglycemia Potassium Chloride 40 meq/ (Sodium Chloride) 1,020 mls @ 50 mls/hr IV .[id number] [facility] Last Admin: 12/31/18 06:47 Dose: 1,020 mls Fat Emulsion Intravenous 100 ml/ Sodium Acetate 40 meq/Sodium Chloride 30 meq/ Potassium Chloride 20 meq/Potassium Phosphate 30 mmol/Calcium Gluconate 10 meq/ Magnesium Sulfate 10 meq/Multivitamins 10 ml/ Chromium/Copper/Manganese/Seleni/ Zn 5 ml/ Dextrose/Water/ Sterile Water/ Amino Acids 1,086.7021 mls @ 45.279 mls /hr IV 2200 [facility] Last Admin: 12/30/18 22:42 Dose: 1,086.7021 mls Insulin Human Lispro (Humalog) 0 units SC .MODERATE SLIDING SC PRN PRN Reason: Moderate Correctional Scale Last Admin: 12/31/18 06:47 Dose: 2 unit Labetalol HCl (Normodyne) 20 mg SLOW IVP Q2H PRN PRN Reason: SBP Greater Than 180 Last Admin: 12/30/18 14:24 Dose: 20 mg Lorazepam (Ativan) 1 mg SLOW IVP Q4H PRN PRN Reason: Anxiety/Agitation Last Admin: 12/31/18 05:24 Dose: 1 mg Naloxone HCl (Narcan) 0.2 mg IV Q5MIN PRN PRN Reason: Opiate Reversal Ondansetron HCl (Zofran) 4 mg IVP Q6H PRN PRN Reason: Nausea/Vomiting Last Admin: 12/30/18 20:56 Dose: 4 mg Pantoprazole Sodium (Protonix) 40 mg IVP Q12HR [facility] Last Admin: 12/31/18 08:30 Dose: 40 mg Phenol (Chloraseptic [place] 180 Ml Bot) 0 ml PO Q4H PRN PRN Reason: Sore Throat Last Admin: 12/31/18 05:25 Dose: 1 spray Promethazine HCl (Phenergan) 12.5 mg IM Q4H PRN PRN Reason: Nausea/Vomiting Last Admin: 12/29/18 09:09 Dose: 12.5 mg Sodium Chloride (Flush - Normal Saline) 10 ml IVF PRN PRN PRN Reason: Saline Flush
[2018-12-31 10:46] LABS: #Basophils 0.1 thou/uL (0.0-0.2); #Lymphocytes 1.1 thou/uL (1.20-3.40); #Monocytes 1.3 thou/uL (0.11-0.59); #Neutrophils 12.3 thou/uL (1.40-6.50); %Basophils 0.6 % (0.0-1.0); %Eosinophils 0.3 % (0.0-10.0); %Lymphocytes 7.5 % (21.0-51.0); %Monocytes 8.5 % (0.0-10.0); %Neutrophils 83.3 % (42.0-75.0); Hemoglobin 8.5 g/dL (12.0-16.0); Mean Corpuscular Hemoglobin 29.7 pg (27.0-31.0); Mean Corpuscular Volume 89.8 fL (78.0-98.0); Mean Platelet Volume 7.8 fL (7.4-10.4); Platelet Count 325 thou/uL (130-400); Red Blood Cell (RBC) Count 2.86 mill/uL (4.20-5.40); White Blood Cell (WBC) Count 14.7 thou/uL (4.8-10.8)
--- NOTE | 2018-12-31 11:42 | PRG ---
DATE OF SERVICE: SUBJECTIVE: Ms. Qureshi is doing well today. The patient is seen by Dr. Morgan. She has undergone two operations. The last of which was performed on 12/29/2018. The patient has NG tube in place. She is on TPN. Her drain is draining darker fluid 265 mL 24 hours, gastric drainage 25 mL, Barnard 1500 mL for 24 hours. White count is 14 and hemoglobin 8.5. Basic metabolic profile is normal. Bilirubin is 6.9 today, up from 6.1. OBJECTIVE: LUNGS: Clear to auscultation. CARDIAC: Regular rate and rhythm. No murmur or gallop. ABDOMEN: Postoperative tenderness. Wound VAC in place. ASSESSMENT AND PLAN: 1. Elevated liver function tests. Continue to follow. I expect this will improve with time as her periampullary pancreatic inflammation improves. Continue to monitor. 2. Malnutrition. N.p.o. Continue TPN. 3. Continue NG tube. 4. Poor mobility. She needs to be up out of bed into a chair 4 times a day and ambulate hallways more often. Job ID: [id number]
[2018-12-31] MEDS: hydrALAZINE 20 MG/ML VIAL SLOW IVP PRN (13:01)
--- NOTE | 2018-12-31 13:25 | EKG ---
Test Reason : Blood Pressure : / mmHG Vent. Rate : 104 BPM Atrial Rate : 104 BPM P-R Int : 182 ms QRS Dur : 082 ms QT Int : 336 ms P-R-T Axes : 048 -08 031 degrees QTc Int : 441 ms Sinus tachycardia Otherwise normal ECG When compared with ECG of 24-DEC-2018 20:30, (Unconfirmed) No significant change was found Confirmed by DR. Hair RODRIGUEZ ([id number]) on 12/31/2018 1:25:25 PM Referred By: ARYA Confirmed By:DR. Hair RODRIGUEZ
[2018-12-31] MEDS: HYDROmorphone 10 mg/100 ml CADD IVPB PRN (14:08)
[2018-12-31] MEDS: [UNRECOGNIZED DRUG - OTHER] IV SCH (23:08)
[2018-12-31] MEDS: SODIUM ACETATE IV SCH (23:08)
[2018-12-31] MEDS: FAT EMULSIONS IV SCH (23:08)
[2018-12-31] MEDS: SODIUM CHLORIDE IV SCH (23:08)
[2019-01-01] MEDS: HumaLOG 300 UNITS/3 ML VIAL SC PRN ×4 (00:40→18:16)
[2019-01-01] MEDS: Lorazepam 2 MG/ML VIAL SLOW IVP PRN ×3 (02:41→20:18)
[2019-01-01] MEDS: Labetalol HCl 100 MG/20 ML VIAL SLOW IVP PRN ×2 (04:24→07:56)
[2019-01-01 05:42] LABS: #Basophils 0.1 thou/uL (0.0-0.2); #Eosinphils 0.1 thou/uL (0.0-0.7); #Lymphocytes 0.9 thou/uL (1.20-3.40); #Monocytes 1.2 thou/uL (0.11-0.59); #Neutrophils 10.1 thou/uL (1.40-6.50); %Basophils 0.6 % (0.0-1.0); %Eosinophils 0.6 % (0.0-10.0); %Lymphocytes 7.1 % (21.0-51.0); %Monocytes 9.9 % (0.0-10.0); %Neutrophils 81.8 % (42.0-75.0); Hemoglobin 7.6 g/dL (12.0-16.0); Mean Corpuscular HGB CONC 33.1 g/dL (32.0-36.0); Mean Corpuscular Hemoglobin 29.7 pg (27.0-31.0); Mean Corpuscular Volume 89.6 fL (78.0-98.0); Mean Platelet Volume 7.6 fL (7.4-10.4); Platelet Count 340 thou/uL (130-400); RBC Distribution Width 15.2 % (11.5-14.5); Red Blood Cell (RBC) Count 2.56 mill/uL (4.20-5.40); White Blood Cell (WBC) Count 12.3 thou/uL (4.8-10.8)
[2019-01-01 06:02] LABS: ALT (SGPT) 84 U/L (8-55); AST (SGOT) 117 U/L (5-34); Albumin 2.4 g/dL (3.4-4.8); Alkaline Phosphatase 419 U/L (40-150); Anion Gap 12 mmol/L (10-20); BUN (Urea Nitrogen) 13 mg/dL (9.8-20.1); Bilirubin, Total 7.6 mg/dL (0.2-1.2); Calc. Creatinine Clearance 97 mL/min (70-130); Calcium 8.6 mg/dL (7.8-10.44); Carbon Dioxide 19 mmol/L (23-31); Chloride 106 mmol/L (98-107); Estimated GFR-MDRD Greater than 90; Glucose 171 mg/dL (80-115); Potassium 3.5 mmol/L (3.5-5.1); Protein, Total 5.4 g/dL (6.0-8.3); Sodium 133 mmol/L (136-145)
[2019-01-01] MEDS: Pantoprazole 40 MG VIAL IVP SCH ×2 (07:58→20:05)
--- NOTE | 2019-01-01 10:04 | PDOC.PN ---
- Subjective Encounter Start Date: 01/01/19 Encounter Start Time: 08:50 Patient seen and examined. pt is still moaning with pain, no fever, No overnight events - Objective Resuscitation Status - Order Detail: 12/24/18 21:39 Resuscitation Status Routine Resuscitation Status: FULL: Full Resuscitation MAR Reviewed: Yes Vital Signs & Weight: Vital Signs (12 hours) Temp Pulse Resp BP BP Pulse Ox 01/01/19 09:01 88 184/72 H 01/01/19 07:56 96 197/91 H 01/01/19 07:23 98.0 F 96 20 197/91 H 96 01/01/19 04:55 80 186/75 H 01/01/19 04:24 102 H 200/89 H 01/01/19 04:00 98 F 102 H 22 H 200/89 H 95 01/01/19 02:45 103 H 96 01/01/19 00:20 97.8 F 104 H 16 169/81 H 97 Weight Admit Weight 125 lb 3.2 oz Weight 125 lb 3.2 oz I&O: 12/31/18 01/01/19 01/02/19 06:59 06:59 06:59 Intake Total 935 2640 Output Total 1790 3970 Balance -855 -9020 Result Diagrams: 01/01/19 05:31 01/01/19 05:31 Additional Labs: Accuchecks 01/01/19 01/01/19 12/31/18 05:21 00:11 19:01 POC Glucose 167 H 212 H 212 H 12/31/18 12:18 POC Glucose 210 H Phys Exam - Physical Examination Constitutional: NAD HEENT: PERRLA, moist MMs icterus+ NG tube+ Neck: no JVD, supple Respiratory: no wheezing, no rales, no rhonchi Cardiovascular: RRR, no significant murmur, no rub Gastrointestinal: soft, no distention surgical site with dressing, drain+ Musculoskeletal: no edema, pulses present Neurological: non-focal, normal sensation Lymphatic: no nodes Psychiatric: normal affect Skin: no rash, normal turgor Dx/Plan (1) Upper GI bleed Code(s): K92.2 - GASTROINTESTINAL HEMORRHAGE, UNSPECIFIED Status: Acute (2) Anemia due to acute blood loss Code(s): D62 - ACUTE POSTHEMORRHAGIC ANEMIA Status: Acute Comment: s/p total 4 unit PRBC (3) Perforated duodenal ulcer with hemorrhage Code(s): K26.6 - CHRONIC OR UNSP DUODENAL ULCER W BOTH HEMORRHAGE AND PERF Status: Acute Comment: required surgical repair this admission (4) S/P bypass gastrojejunostomy Code(s): Z98.0 - INTESTINAL BYPASS AND ANASTOMOSIS STATUS Status: Acute Comment: s/p re exploration of abdomen and wash out 12/29/18 (5) Abnormal LFTs Code(s): R94.5 - ABNORMAL RESULTS OF LIVER FUNCTION STUDIES Status: Acute Comment: due to billiary obstruction from periampullary swelling (6) Hypophosphatemia Code(s): E83.39 - OTHER DISORDERS OF PHOSPHORUS METABOLISM Status: Acute (7) Hypomagnesemia Code(s): E83.42 - HYPOMAGNESEMIA Status: Acute (8) Hypokalemia Code(s): E87.6 - HYPOKALEMIA Status: Acute (9) Chronic pain disorder Code(s): G89.4 - CHRONIC PAIN SYNDROME Status: Chronic (10) Diabetes type 2, controlled Code(s): E11.9 - TYPE 2 DIABETES MELLITUS WITHOUT COMPLICATIONS Status: Chronic (11) Dyslipidemia Code(s): E78.5 - HYPERLIPIDEMIA, UNSPECIFIED Status: Chronic (12) HTN (hypertension) Code(s): I10 - ESSENTIAL (PRIMARY) HYPERTENSION Status: Chronic Qualifiers: Comment: labile control (13) Neuropathic pain Status: Chronic (14) Obesity (BMI 30.0-34.9) Code(s): E66.9 - OBESITY, UNSPECIFIED Status: Chronic (15) PUD (peptic ulcer disease) Code(s): K27.9 - PEPTIC ULC, SITE UNSP, UNSP AC OR CHR, W/O HEMOR OR PERF Status: Chronic (16) Restless leg syndrome Status: Chronic - Plan cont current plan of care, plan discussed w/ family, huynh catheter, PT/OT, incentive spirometry, out of bed/ambulate, DVT proph w/SCDs * medication reviewed as below * symptomatic treatment * continue [employer] * continue gentle fluid * today electrolytes are normal, billirubin still rising and Hb dropping, monitor daily labs * surgeon following. * BP is labile and seems related with her pain and anxiety Review of Systems - Review of Systems Eyes: negative: Pain, Vision Change, Conjunctivae Inflammation, Eyelid Inflammation, Redness, Other ENT: negative: Ear Pain, Ear Discharge, Nose Pain, Nose Discharge, Nose Congestion, Mouth Pain, Mouth Swelling, Throat Pain, Throat Swelling, Other Respiratory: negative: Cough, Dry, Shortness of Breath, Hemoptysis, SOB with Excertion, Pleuritic Pain, Sputum, Wheezing Cardiovascular: negative: chest pain, palpitations, orthopnea, paroxysmal nocturnal dyspnea, edema, light headedness, other Gastrointestinal: Abdominal Pain. negative: Nausea, Vomiting, Diarrhea, Constipation, Melena, Hematochezia, Other Genitourinary: negative: Dysuria, Frequency, Incontinence, Hematuria, Retention , Other Musculoskeletal: negative: Neck Pain, Shoulder Pain, Arm Pain, Back Pain, Hand Pain, Leg Pain, Foot Pain, Other - Medications/Allergies Allergies/Adverse Reactions: Allergies Allergy/AdvReac Type Severity Reaction Status Date / Time ciprofloxacin Allergy Verified 11/06/18 19:36 Medications: Current Medications Acetaminophen (Tylenol) 650 mg PO Q6H PRN PRN Reason: Pain Last Admin: 12/29/18 15:30 Dose: 650 mg Albuterol/Ipratropium (Duoneb) 3 ml NEB Q4H PRN PRN Reason: Wheezing Clonidine (Catapres) 0.1 mg PO Q4H PRN PRN Reason: SBP Greater Than 180 Last Admin: 12/29/18 15:31 Dose: 0.1 mg Clonidine (Gmbtptqd-Hhm-3) 0.2 mg TD Q7D [facility] Last Admin: 12/26/18 18:09 Dose: 0.2 mg Dextrose/Water (Dextrose 50%) 25 gm SLOW IVP PRN PRN PRN Reason: Hypoglycemia Diphenhydramine HCl (Benadryl) 25 mg IVP Q3H PRN PRN Reason: Itching Last Admin: 12/30/18 15:37 Dose: 25 mg Diphenhydramine HCl (Benadryl) 25 mg PO Q3H PRN PRN Reason: Itching Last Admin: 12/28/18 18:12 Dose: 25 mg Diphenhydramine HCl (Benadryl) 25 mg IM Q3H PRN PRN Reason: Itching Last Admin: 12/29/18 11:11 Dose: 25 mg Fentanyl (Duragesic) 75 mcg TD Q3D [facility] Last Admin: 12/30/18 09:42 Dose: 75 mcg Glucagon (Glucagon) 1 mg IM PRN PRN PRN Reason: Hypoglycemia Hydralazine HCl (Apresoline) 10 mg SLOW IVP Q2H PRN PRN Reason: SBP > 170 or DBP > 100 Last Admin: 12/31/18 13:01 Dose: 10 mg Hydromorphone HCl (Dilaudid Cadd) 0 mg IVPB INF PRN PRN Reason: Pain Last Admin: 12/31/18 14:08 Dose: 10 mg Dextrose/Water (D5w) 1,000 mls @ 0 mls/hr IV .Q0M PRN PRN Reason: Hypoglycemia Potassium Chloride 40 meq/ (Sodium Chloride) 1,020 mls @ 50 mls/hr IV .[id number] [facility] Last Admin: 12/31/18 21:19 Dose: 1,020 mls Fat Emulsion Intravenous 100 ml/ Sodium Acetate 40 meq/Sodium Chloride 30 meq/ Potassium Chloride 20 meq/Potassium Phosphate 30 mmol/Calcium Gluconate 10 meq/ Magnesium Sulfate 10 meq/Multivitamins 10 ml/ Chromium/Copper/Manganese/Seleni/ Zn 5 ml/ Dextrose/Water/ Sterile Water/ Amino Acids 1,086.7021 mls @ 45.279 mls /hr IV 2200 [facility] Last Admin: 12/31/18 23:08 Dose: 1,086.7021 mls Insulin Human Lispro (Humalog) 0 units SC .MODERATE SLIDING SC PRN PRN Reason: Moderate Correctional Scale Last Admin: 01/01/19 06:27 Dose: 2 unit Labetalol HCl (Normodyne) 20 mg SLOW IVP Q2H PRN PRN Reason: SBP Greater Than 180 Last Admin: 01/01/19 07:56 Dose: 20 mg Lorazepam (Ativan) 1 mg SLOW IVP Q4H PRN PRN Reason: Anxiety/Agitation Last Admin: 01/01/19 02:41 Dose: 1 mg Naloxone HCl (Narcan) 0.2 mg IV Q5MIN PRN PRN Reason: Opiate Reversal Ondansetron HCl (Zofran) 4 mg IVP Q6H PRN PRN Reason: Nausea/Vomiting Last Admin: 12/30/18 20:56 Dose: 4 mg Pantoprazole Sodium (Protonix) 40 mg IVP Q12HR [facility] Last Admin: 01/01/19 07:58 Dose: 40 mg Phenol (Chloraseptic Dema 180 Ml Bot) 0 ml PO Q4H PRN PRN Reason: Sore Throat Last Admin: 12/31/18 05:25 Dose: 1 spray Promethazine HCl (Phenergan) 12.5 mg IM Q4H PRN PRN Reason: Nausea/Vomiting Last Admin: 12/29/18 09:09 Dose: 12.5 mg Sodium Chloride (Flush - Normal Saline) 10 ml IVF PRN PRN PRN Reason: Saline Flush
[2019-01-01] MEDS: hydrALAZINE 20 MG/ML VIAL SLOW IVP PRN ×2 (10:56→16:18)
--- NOTE | 2019-01-01 12:43 | PRG ---
DATE OF SERVICE: 01/01/2019 SUBJECTIVE: The patient is seen by Dr. Morgan. OBJECTIVE: VITAL SIGNS: pulse 106, blood pressure 154/76. LUNGS: Clear to auscultation. CARDIAC: Regular rate and rhythm without murmur or gallop. ABDOMEN: Soft. Postoperative tenderness. Dressings over midline wound. ELEANOR drain output appears bilious 24 hours. LABORATORY DATA: This morning, white count is 12, hemoglobin 7.6. Basic metabolic profile is normal. Bilirubin increased to 7.6, up from 6.9 yesterday. AST 84 (49 yesterday), alkaline phosphatase 419 (241 yesterday). ASSESSMENT AND PLAN: I suspect biliary leak from the drain. We will start her on Sandostatin. Continue NG tube suction, n.p.o., and supportive care and pain management. She is up in a chair today. Increase mobility efforts. Job ID: [id number]
[2019-01-01 14:02] LABS: Fluid, Bilirubin Total 12.3 mg/dL (Not Available)
[2019-01-01] MEDS: Octreotide Acetate 100 MCG/ML VIAL SC SCH ×2 (15:01→22:53)
[2019-01-01] MEDS: HYDROmorphone 10 mg/100 ml CADD IVPB PRN (15:04)
[2019-01-01] MEDS: Potassium Chloride 40 MEQ in Sodium Chloride 0.45% 1,000 ML IV SCH (15:54)
[2019-01-01 21:42] LABS: Band 13 % (5-11); Lymphocytes 6 % (21-51); MDiff Complete? YES; Mean Corpuscular HGB CONC 34.6 g/dL (32.0-36.0); Mean Corpuscular Hemoglobin 30.9 pg (27.0-31.0); Mean Corpuscular Volume 89.2 fL (78.0-98.0); Mean Platelet Volume 8.3 fL (7.4-10.4); Monocytes 9 % (0-10); Neutrophil 72 % (42-75); Nucleated RBC 4 % (0); Platelet Count 391 thou/uL (130-400); RBC Distribution Width 15.2 % (11.5-14.5); Red Blood Cell (RBC) Count 2.27 mill/uL (4.20-5.40); White Blood Cell (WBC) Count 10.6 thou/uL (4.8-10.8)
[2019-01-01] MEDS: SODIUM CHLORIDE IV SCH (22:30)
[2019-01-01] MEDS: SODIUM ACETATE IV SCH (22:30)
[2019-01-01] MEDS: Piperacillin/Tazobactam 4.5 GM in Sodium Chloride 0.9% 100 ML IVPB SCH (22:30)
[2019-01-01] MEDS: [UNRECOGNIZED DRUG - OTHER] IV SCH (22:30)
[2019-01-01] MEDS: FAT EMULSIONS IV SCH (22:30)
[2019-01-02] MEDS: HumaLOG 300 UNITS/3 ML VIAL SC PRN ×3 (00:05→22:22)
--- NOTE | 2019-01-02 00:26 | PDOC.EVN ---
Event Note - Event Note Event Note: paged by RN, pt has continued to deteriorate, will place in imcu, there is some drip in hb, will repeat ct abdomen and pelvis as of now pt remains full code.
[2019-01-02] MEDS ORDERED: diphenhydrAMINE 50 MG/ML VIAL IVP SCH (01:30)
[2019-01-02] MEDS ORDERED: Lorazepam 2 MG/ML VIAL SLOW IVP SCH (02:30)
[2019-01-02] MEDS: Piperacillin/Tazobactam 4.5 GM in Sodium Chloride 0.9% 100 ML IVPB SCH ×3 (05:14→21:58)
[2019-01-02] MEDS: Octreotide Acetate 100 MCG/ML VIAL SC SCH ×3 (05:15→21:58)
[2019-01-02] MEDS: Lorazepam 2 MG/ML VIAL SLOW IVP PRN ×3 (05:33→16:20)
[2019-01-02] MEDS: HYDROmorphone 10 mg/100 ml CADD IVPB PRN (08:06)
--- NOTE | 2019-01-02 08:11 | RAD ---
PORTABLE CHEST 1 VIEW: DATE: 01/02/2019. TIME: 3:03 a.m. HISTORY: Shortness of breath. FINDINGS/IMPRESSION: Comparison is made with the exam of 12/25/2018. Right-sided internal jugular central line and a nasogastric tube are present. The heart size is norm al. Bibasilar infiltrates are noted. There are plates of atelectasis in the lower lung moss as we ll. No pneumothoraces or large effusions are seen. POS: [facility]
[2019-01-02] MEDS ORDERED: Acetaminophen 650 MG Suppository PR PRN (08:53)
[2019-01-02] MEDS: Labetalol HCl 100 MG/20 ML VIAL SLOW IVP PRN (09:18)
[2019-01-02 09:29] LABS: Actual Bicarbonate (HCO3a) 16.4 mEq/L (22-28); Base Excess (BEa) -6.6 mEq/L (-2.0 to +3.0); Calcium, Ionized 1.19 mmol/L (1.12-1.30); Potassium - ABG Lab 4.78 mmol/L (3.70-5.30)
[2019-01-02 09:32] LABS: O2 Tension (PaO2) 59.7 mmHg (> 80.0); Puncture Site LR
[2019-01-02] MEDS: Pantoprazole 40 MG VIAL IVP SCH ×2 (09:32→21:58)
[2019-01-02 09:33] LABS: ALT (SGPT) 85 U/L (8-55); AST (SGOT) 63 U/L (5-34); Albumin 2.6 g/dL (3.4-4.8); Alkaline Phosphatase 292 U/L (40-150); Anion Gap 14 mmol/L (10-20); BUN (Urea Nitrogen) 26 mg/dL (9.8-20.1); Bilirubin, Total 5.2 mg/dL (0.2-1.2); Calc. Creatinine Clearance 71 mL/min (70-130); Calcium 8.8 mg/dL (7.8-10.44); Carbon Dioxide 20 mmol/L (23-31); Chloride 105 mmol/L (98-107); Estimated GFR-MDRD 81; Globulin 3.4 g/dL (2.4-3.5); Glucose 218 mg/dL (80-115); Potassium 4.9 mmol/L (3.5-5.1); Sodium 134 mmol/L (136-145)
[2019-01-02 09:37] LABS: #Lymphocytes 1.7 thou/uL (1.20-3.40); #Monocytes 2.4 thou/uL (0.11-0.59); #Neutrophils 12.8 thou/uL (1.40-6.50); %Eosinophils 0.1 % (0.0-10.0); %Lymphocytes 9.9 % (21.0-51.0); %Monocytes 13.9 % (0.0-10.0); %Neutrophils 76.1 % (42.0-75.0); Hemoglobin 10.2 g/dL (12.0-16.0); Mean Corpuscular HGB CONC 32.4 g/dL (32.0-36.0); Mean Corpuscular Hemoglobin 28.9 pg (27.0-31.0); Mean Corpuscular Volume 88.9 fL (78.0-98.0); Mean Platelet Volume 8.3 fL (7.4-10.4); Platelet Count 399 thou/uL (130-400); RBC Distribution Width 15.9 % (11.5-14.5); Red Blood Cell (RBC) Count 3.53 mill/uL (4.20-5.40); White Blood Cell (WBC) Count 16.8 thou/uL (4.8-10.8)
[2019-01-02] MEDS ORDERED: Midazolam HCl 2 mg/2 ml Vial ONE (09:52)
[2019-01-02] MEDS ORDERED: Bacteriostatic Water 30 ML VIAL FS PRN (10:10)
[2019-01-02] MEDS ORDERED: Acetaminophen 1,000 MG in Premix Bag 1 BAG IVPB PRN (10:30)
[2019-01-02] MEDS ORDERED: Midazolam HCl 2 mg/2 ml Vial IVP SCH (10:30)
[2019-01-02 10:54] LABS: Actual Bicarbonate (HCO3a) 17.8 mEq/L (22-28); Base Excess (BEa) -5.2 mEq/L (-2.0 to +3.0); CO2 Tension 26.5 mmHg (35.0-45.0); Calcium, Ionized 1.14 mmol/L (1.12-1.30); Carboxyhemoglobin (COHb) 0.9 gm% (0.0-3.0); Hemoglobin (Hb) 9.9 g/dL (12.0-16.0); O2 Tension (PaO2) 66.4 mmHg (> 80.0); Potassium - ABG Lab 4.66 mmol/L (3.70-5.30); pH, Arterial 7.45 (7.35-7.45)
[2019-01-02 10:57] LABS: ALV-art Gradient 185.675 (0-20); Puncture Site RBA
[2019-01-02] MEDS: Potassium Chloride 40 MEQ in Sodium Chloride 0.45% 1,000 ML IV SCH ×2 (11:05→14:18)
[2019-01-02] MEDS: methylPREDNISolone Sod Succ 40 MG VIAL IVP SCH ×3 (11:32→21:58)
[2019-01-02] MEDS: Cefepime 1 GM in Sodium Chloride 0.9% 100 ML IVPB SCH ×2 (11:33→21:59)
--- NOTE | 2019-01-02 11:44 | CT ---
PRELIMINARY REPORT/[facility]/EMERGENCY AFTER HOURS PROCEDURE: Addendum created by Ramos Potter MD on 01/02/2019 4:15 AM Central Time ([place] & [place]) Findings were dis cussed with Dr. Hdez at 01/02/2019 4:13 AM CDT. Initial Report created on 01/02/2019 4:02 AM Central Time ([place]) EXAM: CT Abdomen and Pelvis With Contrast EXAM DATE/TIME: 01/02/2019 3:37 AM CLINICAL HISTORY: 63 years old, female; Abdominal pain; Acute; Patient HX: PT unable to follow breathing instructions. Worsening pain over the last 18 hours. Anemia, recently had a egd and PT had perforated bowel. TECHNIQUE: Imaging protocol: Axial computed tomography images of the abdomen and pelvis with intravenous contras t. Coronal reformatted images were created and reviewed. COMPARISON: No relevant prior studies available. FINDINGS: Tubes, catheters and devices: Nasogastric tube courses into the stomach. There is a surgical drain no cherelle within the RIGHT abdomen which terminates inferior to the liver. Lungs: There is moderate bibasilar atelectasis. ABDOMEN: Liver: There are no focal liver lesions identified. Gallbladder and bile ducts: Gallbladder surgically absent. No ductal dilation. Pancreas: The pancreas appears normal. No ductal dilatation. Spleen: The spleen is normal. Adrenals: The adrenal glands are normal. Kidneys and ureters: The kidneys appear normal. No hydronephrosis. Stomach and bowel: The distal stomach is not well-visualized. Gastric bypass may be present. There is dense contrast seen within the colon which is decompressed and otherwise unremarkable. Small bowel is decompressed. No evidence of obstruction. Appendix: A normal appendix is identified. PELVIS: Bladder: The bladder is decompressed by a Barnard catheter but is otherwise normal. There is a small am ount of intraluminal air consistent with instrumentation. Reproductive: Uterus is surgically absent. ABDOMEN and PELVIS: Intraperitoneal space: There is moderate RIGHT upper quadrant hyperdense ascites which may be simple fluid with volume averaging although hemorrhage cannot be completely excluded and clinical correlatio n is advised. There is a small amount of free pelvic fluid present. Patient is post recent surgery. There is free air within the upper abdomen of indeterminate significance. Bones/joints: No acute fracture. No dislocation. Soft tissues: Unremarkable. Vasculature: Normal. No abdominal aortic aneurysm. Lymph nodes: Normal. No enlarged lymph nodes. IMPRESSION: 1. There is moderate RIGHT upper quadrant hyperdense ascites which may be simple fluid with volume av eraging although hemorrhage cannot be completely excluded and clinical correlation is advised. 2. Patient is post recent bowel surgery. There is free air within the upper abdomen of indeterminate significance. Thank you for allowing us to participate in the care of your patient. Dictated and Authenticated by: Ramos Potter MD 01/02/2019 4:02 AM Central Time ([place] & [place]) FINAL REPORT CT ABDOMEN AND PELVIS WITH IV CONTRAST: I agree with the preliminary report given by Dr. Ramos Potter of [facility]. Comparison is made to the exam of 12/28/2018. The peripancreatic fluid collection has decreased in si ze. There is fluid adjacent to the liver and in the pelvis which was not seen on the previous study. POS: NO
[2019-01-02] MEDS ORDERED: methylPREDNISolone Sod Succ 40 MG VIAL IVP SCH (12:00)
[2019-01-02] MEDS: fentaNYL 75 mcg/hour Patch TD SCH (12:25)
--- NOTE | 2019-01-02 12:33 | CON ---
DATE OF CONSULTATION: HISTORY OF PRESENT ILLNESS: This is a 63-year-old female, who was transferred last night with progressive respiratory failure and tachycardia. I was called to see the patient on emergent basis. This morning when I arrived, she was clearly agonal respiration, encephalopathic. There is a daughter and a son at the bedside, whom I spoke to them regarding progressive respiratory failure issues. It was felt we reviewed proceed with intubation and transferred to the ICU. Her blood gases showed a pO2 of 59, pCO2 of 27, pH 7.40 showing severe respiratory failure. Emergency lytes were normal. Liver function was slightly elevated. She had a CAT scan done of her abdomen last night. The patient has been in the hospital for 9 days for an initial presentation of GI bleed, status post surgery. The son and the daughter stated that the patient does not smoke or drink. PAST MEDICAL HISTORY: Pertinent for previous GI bleed, peptic ulcer disease, history of chronic pain, hypertension, and diabetes. PAST SURGICAL HISTORY: Cholecystectomy, hysterectomy, and multiple endoscopies. ALLERGIES: CIPRO. HOME MEDICATIONS: Included: 1. Zestril 20 twice a day. 2. Albuterol inhaler. 3. Tramadol. 4. Zanaflex 8 mg. 5. Neurontin 900 three times a day. 6. Belbuca. 7. Metformin 500 twice a day. 8. Catapres 0.1. 9. Potassium. 10. Protonix 40. 11. She is now on Zosyn and TPN. ALLERGIES: CIPRO. REVIEW OF SYSTEMS: Otherwise unobtainable. VITAL SIGNS: Temperature is 98, pulse 131, blood pressure 180/80, respirations 30, agonal respiration. Slightly jaundice. CHEST: Extensive rhonchi. CARDIAC: Sinus tach. ABDOMEN: Soft. LABORATORY DATA: White count 16,000, hemoglobin and hematocrit of 10 and 31, and platelet count is 399. X-ray shows bibasilar infiltrates. AST and ALT slightly elevated. Respiratory failure, metabolic encephalopathy, status post lap, diabetes, poor nutritional status, and chronic pain. PLAN: It was felt she needs to be intubated. This was done using a 7.5 endotracheal tube over the bronchoscope. Posterior pharynx is visualized, which is very large and copious amounts of pus in the back of the throat, which was suction lavaged. Entering the trachea, large volume of pus was seen, which was suctioned. Tube was placed above the elmira was removed. The patient was bagged, sats 100%. Therapeutic lavage was done. Bronchoscope was passed again. [place] was visualized. Right lung was inspected initially. There was pus in the right lung, which was suction lavaged to clear. Right upper, right middle lobe and right lower lobe visualized. No further endobronchial disease was seen. The left lung inspected after this also had pus in the mainstem bronchus. This was suction lavaged. Will clear thereafter the left upper and left lower were visualized. No further endobronchial disease seen. Washings were sent for Gram stain and C and S. The patient was connected through a vent, was transferred to the ICU. IMPRESSION: 1. Respiratory failure, retained secretions. 2. Encephalopathy. 3. Status post lap. 4. Chronic pain. 5. Diabetes. PLAN: Continue antibiotics, neb treatments, steroids, and TPN. This is a 45-minute critical time exclusive of the intubation and bronchial lavage. Job ID: [id number]
--- NOTE | 2019-01-02 13:48 | PRG ---
DATE OF SERVICE: 01/01/2019 I have talked with Dr. Reeves. The patient will need OMF intervention in the next few days. The patient is re-evaluated at bedside after ORIF, left forearm and closure of facial lacerations. The patient is alert and oriented. Her pupils are equally round and reactive to light. She does have normal vision in her left eye at the best of my exam at bedside. The patient's extraocular movements are intact with some perhaps slight limitation in lateral left gaze. Left pupil otherwise intact. The patient's vision is not blurry. Per Dr. Reeves's request, I have talked to Dr. John Box per telephone and Dr. John Box will see her in the next 1 or 2 days. Job ID: [id number]
--- NOTE | 2019-01-02 13:53 | PDOC.PN ---
- Subjective Encounter Start Date: 01/02/19 Encounter Start Time: 11:00 Subjective: pt intubated early this am due to respiratory distress - Objective Resuscitation Status - Order Detail: 12/24/18 21:39 Resuscitation Status Routine Resuscitation Status: FULL: Full Resuscitation Vital Signs & Weight: Vital Signs (12 hours) Temp Pulse Pulse Resp BP BP BP 01/02/19 12:47 87 134/64 01/02/19 12:00 98.6 F 01/02/19 10:15 100.9 F H 01/02/19 09:58 82 143/68 H 01/02/19 09:18 131 H 01/02/19 08:00 99.4 F 01/02/19 07:20 98.7 F 01/02/19 05:12 99.0 F 121 H 29 H 171/93 H 01/02/19 04:56 99.2 F 28 H 01/02/19 03:04 98.6 F 01/02/19 02:44 100.3 F H 122 H 24 H 122/64 01/02/19 01:58 99.9 F H Pulse Ox 01/02/19 12:47 01/02/19 12:00 01/02/19 10:15 01/02/19 09:58 01/02/19 09:18 01/02/19 08:00 90 L 01/02/19 07:20 01/02/19 05:12 26 L 01/02/19 04:56 96 01/02/19 03:04 01/02/19 02:44 96 01/02/19 01:58 97 Weight Admit Weight 131 lb 9.855 oz Weight 125 lb 3.2 oz Most Recent Monitor Data Heart Rate from ECG 82 NIBP 147/73 NIBP BP-Mean 97 Respiration from ECG 24 SpO2 95 I&O: 01/01/19 01/02/19 01/03/19 06:59 06:59 06:59 Intake Total 2640 2609.4 120 Output Total 3970 2745 380 Balance -1330 -135.6 -260 Result Diagrams: 01/02/19 08:50 01/02/19 08:50 Additional Labs: Accuchecks 01/02/19 01/02/19 01/01/19 05:35 00:02 17:51 POC Glucose 203 H 219 H 255 H Phys Exam - Physical Examination Respiratory: no wheezing, no rales, no rhonchi, wheezing present, clear to auscultation bilateral Cardiovascular: RRR, no significant murmur, no rub, gallop, irregular Gastrointestinal: soft, positive bowel sounds mild pain on palpation Musculoskeletal: no edema, pulses present, edema present Dx/Plan (1) Acute respiratory failure Code(s): J96.00 - ACUTE RESPIRATORY FAILURE, UNSP W HYPOXIA OR HYPERCAPNIA Status: Acute (2) Anemia due to acute blood loss Code(s): D62 - ACUTE POSTHEMORRHAGIC ANEMIA Status: Acute Comment: s/p total 4 unit PRBC (3) Perforated duodenal ulcer with hemorrhage Code(s): K26.6 - CHRONIC OR UNSP DUODENAL ULCER W BOTH HEMORRHAGE AND PERF Status: Acute Comment: required surgical repair this admission (4) S/P bypass gastrojejunostomy Code(s): Z98.0 - INTESTINAL BYPASS AND ANASTOMOSIS STATUS Status: Acute Comment: s/p re exploration of abdomen and wash out 12/29/18 (5) Upper GI bleed Code(s): K92.2 - GASTROINTESTINAL HEMORRHAGE, UNSPECIFIED Status: Acute (6) Diabetes type 2, controlled Code(s): E11.9 - TYPE 2 DIABETES MELLITUS WITHOUT COMPLICATIONS Status: Chronic (7) HTN (hypertension) Code(s): I10 - ESSENTIAL (PRIMARY) HYPERTENSION Status: Chronic Qualifiers: Comment: labile control (8) Obesity (BMI 30.0-34.9) Code(s): E66.9 - OBESITY, UNSPECIFIED Status: Chronic - Plan per nursing staff 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 pt was on dilaudid -: pt got intubated this am. pt is on steroids per pulm -: She is on abx. HH is stable * . Review of Systems - Review of Systems Other: pt incubated - Medications/Allergies Allergies/Adverse Reactions: Allergies Allergy/AdvReac Type Severity Reaction Status Date / Time ciprofloxacin Allergy Verified 11/06/18 19:36 Medications: Current Medications Acetaminophen (Tylenol) 650 mg PO Q6H PRN PRN Reason: Pain Last Admin: 12/29/18 15:30 Dose: 650 mg Acetaminophen (Tylenol) 975 mg IA Q8H PRN PRN Reason: Fever > 101 Albuterol/Ipratropium (Duoneb) 3 ml NEB Q4H PRN PRN Reason: Wheezing Albuterol/Ipratropium (Duoneb) 3 ml NEB [id number] [facility] Clonidine (Catapres) 0.1 mg PO Q4H PRN PRN Reason: SBP Greater Than 180 Last Admin: 12/29/18 15:31 Dose: 0.1 mg Clonidine (Ivwggbxf-Yph-0) 0.2 mg TD Q7D [facility] Last Admin: 12/26/18 18:09 Dose: 0.2 mg Dextrose/Water (Dextrose 50%) 25 gm SLOW IVP PRN PRN PRN Reason: Hypoglycemia Diphenhydramine HCl (Benadryl) 25 mg IVP Q3H PRN PRN Reason: Itching Last Admin: 12/30/18 15:37 Dose: 25 mg Diphenhydramine HCl (Benadryl) 25 mg PO Q3H PRN PRN Reason: Itching Last Admin: 12/28/18 18:12 Dose: 25 mg Diphenhydramine HCl (Benadryl) 25 mg IM Q3H PRN PRN Reason: Itching Last Admin: 12/29/18 11:11 Dose: 25 mg Fentanyl (Duragesic) 75 mcg TD Q3D [facility] Last Admin: 01/02/19 12:25 Dose: 75 mcg Gabapentin (Neurontin) 300 mg PO TID [facility] Glucagon (Glucagon) 1 mg IM PRN PRN PRN Reason: Hypoglycemia Hydralazine HCl (Apresoline) 10 mg SLOW IVP Q2H PRN PRN Reason: SBP > 170 or DBP > 100 Last Admin: 01/01/19 16:18 Dose: 10 mg Dextrose/Water (D5w) 1,000 mls @ 0 mls/hr IV .Q0M PRN PRN Reason: Hypoglycemia Potassium Chloride 40 meq/ (Sodium Chloride) 1,020 mls @ 50 mls/hr IV .[id number] [facility] Last Admin: 01/02/19 11:05 Dose: 1,020 mls Fat Emulsion Intravenous 100 ml/ Sodium Acetate 40 meq/Sodium Chloride 30 meq/ Potassium Chloride 20 meq/Potassium Phosphate 30 mmol/Calcium Gluconate 10 meq/ Magnesium Sulfate 10 meq/Multivitamins 10 ml/ Chromium/Copper/Manganese/Seleni/ Zn 5 ml/ Dextrose/Water/ Sterile Water/ Amino Acids 1,086.7021 mls @ 45.279 mls /hr IV 2200 [facility] Last Admin: 01/01/19 22:30 Dose: 1,086.7021 mls Piperacillin Sod/Tazobactam (Sod 4.5 gm/ Sodium Chloride) 100 mls @ 200 mls/hr IVPB Q8HR [facility] Last Admin: 01/02/19 05:14 Dose: 100 mls Cefepime HCl 1 gm/ Sodium (Chloride) 100 mls @ 200 mls/hr IVPB 1000,2200 [facility] Last Admin: 01/02/19 11:33 Dose: 100 mls Acetaminophen 1,000 mg/ Device 100 mls @ 400 mls/hr IVPB Q8H PRN PRN Reason: PAIN/FEVER Stop: 01/03/19 10:31 Dexmedetomidine HCl 200 mcg/ (Sodium Chloride) 50 mls @ 0 mls/hr IVPB INF [facility]; Protocol Last Admin: 01/02/19 12:34 Dose: 50 mls Insulin Human Lispro (Humalog) 0 units SC .MODERATE SLIDING SC PRN PRN Reason: Moderate Correctional Scale Last Admin: 01/02/19 06:28 Dose: 4 unit Labetalol HCl (Normodyne) 20 mg SLOW IVP Q2H PRN PRN Reason: SBP Greater Than 180 Last Admin: 01/02/19 09:18 Dose: 20 mg Lorazepam (Ativan) 1 mg SLOW IVP Q4H PRN PRN Reason: Anxiety/Agitation Last Admin: 01/02/19 12:46 Dose: 1 mg Methylprednisolone Sodium Succinate (Solu-Medrol) 40 mg IVP 0400,1000,1600, 2200 [facility] Last Admin: 01/02/19 11:32 Dose: 40 mg Naloxone HCl (Narcan) 0.2 mg IV Q5MIN PRN PRN Reason: Opiate Reversal Octreotide Acetate (Sandostatin) 100 mcg SC Q8HR [facility] Last Admin: 01/02/19 05:15 Dose: 100 mcg Ondansetron HCl (Zofran) 4 mg IVP Q6H PRN PRN Reason: Nausea/Vomiting Last Admin: 12/30/18 20:56 Dose: 4 mg Pantoprazole Sodium (Protonix) 40 mg IVP Q12HR [facility] Last Admin: 01/02/19 09:32 Dose: 40 mg Phenol (Chloraseptic [place] 180 Ml Bot) 0 ml PO Q4H PRN PRN Reason: Sore Throat Last Admin: 12/31/18 05:25 Dose: 1 spray Promethazine HCl (Phenergan) 12.5 mg IM Q4H PRN PRN Reason: Nausea/Vomiting Last Admin: 12/29/18 09:09 Dose: 12.5 mg Sodium Chloride (Flush - Normal Saline) 10 ml IVF PRN PRN PRN Reason: Saline Flush Sterile Water (Bacteriostatic Water) 1 ml FS PRN PRN PRN Reason: RECONSTITUTION
[2019-01-02 14:06] LABS: Ref Lab Test Ordered AMYLASE FLUID JP DRA; Reference Lab Name LABCORP
[2019-01-02] MEDS: Gabapentin 300 MG CAP PO SCH ×2 (14:20→21:58)
[2019-01-02] MEDS ORDERED: ISOVUE-370 76%-LOCM 1 ML ONE (16:09)
[2019-01-02] MEDS ORDERED: Propofol BOLUS 1,000 MG/100 ML VIAL IV PRN (16:57)
[2019-01-02] MEDS: Propofol 1,000 MG/100 ML VIAL IV PRN (17:01)
[2019-01-02] MEDS: cloNIDine 0.2mg/24 Hour PATCH TD SCH (18:24)
[2019-01-02] MEDS: SODIUM ACETATE IV SCH (21:57)
[2019-01-02] MEDS: SODIUM CHLORIDE IV SCH (21:57)
[2019-01-02] MEDS: FAT EMULSIONS IV SCH (21:57)
[2019-01-02] MEDS: [UNRECOGNIZED DRUG - OTHER] IV SCH (21:57)
[2019-01-03] MEDS: Propofol 1,000 MG/100 ML VIAL IV PRN (05:18)
[2019-01-03] MEDS: Octreotide Acetate 100 MCG/ML VIAL SC SCH ×3 (05:18→22:00)
[2019-01-03] MEDS: HumaLOG 300 UNITS/3 ML VIAL SC PRN ×4 (05:19→22:19)
[2019-01-03] MEDS: methylPREDNISolone Sod Succ 40 MG VIAL IVP SCH ×4 (05:20→22:01)
[2019-01-03] MEDS: Piperacillin/Tazobactam 4.5 GM in Sodium Chloride 0.9% 100 ML IVPB SCH ×3 (05:21→22:01)
[2019-01-03 05:46] LABS: Band 25 % (5-11); Hemoglobin 8.4 g/dL (12.0-16.0); Lymphocytes 1 % (21-51); MDiff Complete? YES; Mean Corpuscular Hemoglobin 29.2 pg (27.0-31.0); Mean Corpuscular Volume 88.4 fL (78.0-98.0); Monocytes 6 % (0-10); Neutrophil 68 % (42-75); Platelet Count 380 thou/uL (130-400); RBC Distribution Width 15.9 % (11.5-14.5); Red Blood Cell (RBC) Count 2.89 mill/uL (4.20-5.40); White Blood Cell (WBC) Count 20.5 thou/uL (4.8-10.8)
[2019-01-03 05:53] LABS: ALT (SGPT) 68 U/L (8-55); AST (SGOT) 48 U/L (5-34); Albumin 2.4 g/dL (3.4-4.8); Alkaline Phosphatase 195 U/L (40-150); Anion Gap 14 mmol/L (10-20); BUN (Urea Nitrogen) 33 mg/dL (9.8-20.1); Calc. Creatinine Clearance 52 mL/min (70-130); Calcium 8.4 mg/dL (7.8-10.44); Carbon Dioxide 17 mmol/L (23-31); Chloride 107 mmol/L (98-107); Estimated GFR-MDRD 57; Globulin 3.2 g/dL (2.4-3.5); Glucose 471 mg/dL (80-115); Potassium 4.6 mmol/L (3.5-5.1); Protein, Total 5.6 g/dL (6.0-8.3); Sodium 133 mmol/L (136-145)
[2019-01-03 07:21] LABS: Actual Bicarbonate (HCO3a) 15.2 mEq/L (22-28); Base Excess (BEa) -7.1 mEq/L (-2.0 to +3.0); Calcium, Ionized 1.13 mmol/L (1.12-1.30); Carboxyhemoglobin (COHb) 0.8 gm% (0.0-3.0); Hemoglobin (Hb) 9.1 g/dL (12.0-16.0); O2 Tension (PaO2) 72.1 mmHg (> 80.0); Potassium - ABG Lab 4.32 mmol/L (3.70-5.30); pH, Arterial 7.47 (7.35-7.45)
[2019-01-03 07:25] LABS: CO2 Tension 21.4 mmHg (35.0-45.0); Puncture Site RR
--- NOTE | 2019-01-03 07:57 | RAD ---
Portable frontal chest radiograph: 01/03/2019 COMPARISON: 01/02/2019 HISTORY: Ventilated patient FINDINGS: Evaluation is limited secondary to shallow inspiration. There is increased density in both lung bases, which may signify infiltrate or volume loss. No pneumothorax is evident. Right vascular catheter terminates over the region of the right atrium. Endotracheal tube terminates at level of cla vicles. Nasogastric tube extends into left upper quadrant. Postoperative cutaneous hannah overlie the midline upper abdomen. IMPRESSION: Lines and tubes as detailed above. Nonspecific increased density in both lung bases.
--- NOTE | 2019-01-03 08:38 | PRG ---
DATE OF SERVICE: 01/03/2019 SUBJECTIVE: This morning, she is sedated with Precedex and propofol. Once we discontinued the propofol, she is little bit more responsive. She has Duragesic patch 75 every 3 days. She is on gabapentin. She is on multiple medications. OBJECTIVE: VITAL SIGNS: Blood pressure 180/84, pulse is 70, temperature 100.8, respirations 20, and pulse 80. I's and O's are consistently ahead. CHEST: Decreased breath sounds. No wheezing. No crackles. CARDIAC: Normal S1, S2. ABDOMEN: No masses. LABORATORY DATA: PO2 72, pCO2 21, pH 7.47, at rate of 24, 40% of tidal volume. PEEP of 5. White count 20,000. Lytes otherwise unremarkable. Sodium 133. Albumin is low. IMPRESSION: 1. Metabolic encephalopathy, respiratory failure, retained secretions. 2. Status post lap for bleeding peptic ulcer disease, poor nutrition, abnormal LFTs. PLAN: 1. Hold sedation. Consider weaning. Discuss with family when they arrive on ongoing issues. 2. Need to restart home blood pressure medication. PT nutrition. One-half hour for critical time. Job ID: [id number]
[2019-01-03] MEDS: Cefepime 1 GM in Sodium Chloride 0.9% 100 ML IVPB SCH ×2 (09:11→22:01)
[2019-01-03] MEDS: Gabapentin 300 MG CAP PO SCH ×3 (09:12→19:58)
[2019-01-03] MEDS: Pantoprazole 40 MG VIAL IVP SCH ×2 (09:12→20:05)
--- NOTE | 2019-01-03 09:36 | PDOC.GSPN ---
Surgery Progress Note: Subj - Subjective Narrative: Intubated Surgery Progress Note: Obj - Vital signs Vital signs: Vital Signs - Most Recent Temp Pulse Resp BP Pulse Ox 100.8 F H 70 26 H 180/84 H 93 L 01/03/19 07:00 01/03/19 07:41 01/03/19 08:00 01/03/19 07:41 01/03/19 08:00 - Physical Exam General: no distress Cardiovascular: regular rate and rhythm Respiratory: coarse breath sounds Abdomen: soft, nondistended (Dressings removed and young removed. ELEANOR has bilious drainage), appropriately tender Surgery Progress Note: Results - Labs Result Diagrams: 01/03/19 05:15 01/03/19 05:15 Lab results: Laboratory Results - last 24 hr 01/02/19 01/03/19 01/03/19 22:21 05:15 05:15 WBC 20.5 H RBC 2.89 L Hgb 8.4 L Hct 25.5 L MCV 88.4 MCH 29.2 MCHC 33.0 RDW 15.9 H Plt Count 380 MPV 9.0 Neutrophils % (Manual) 68 Band Neuts % (Manual) 25 H Lymphocytes % (Manual) 1 L Monocytes % (Manual) 6 Specimen Type Puncture Site Bicarbonate Actual ABG pH ABG pCO2 ABG pO2 ABG O2 Sat Calc/Nila ABG O2 Content ABG Base Excess ABG Hematocrit ABG Hemoglobin ABG Oxyhemoglobin ABG Carboxyhemoglobin ABG Methemoglobin ABG Deoxyhemoglobin Jose Test A-a O2 Gradient Ionized Calcium Mode of Support % Minute Volume Mechanical Rate Inspired O2 Tidal Volume Pressure Support PEEP or CPAP Sodium 133 L Potassium 4.6 Chloride 107 Carbon Dioxide 17 L Anion Gap 14 BUN 33 H Creatinine 0.99 Estimated GFR (MDRD) 57 Glucose 471 H POC Glucose 449 H Calcium 8.4 Total Bilirubin 4.0 H AST 48 H ALT 68 H Alkaline Phosphatase 195 H Serum Total Protein 5.6 L Albumin 2.4 L Globulin 3.2 Albumin/Globulin Ratio 0.8 L 01/03/19 07:13 WBC RBC Hgb Hct MCV MCH MCHC RDW Plt Count MPV Neutrophils % (Manual) Band Neuts % (Manual) Lymphocytes % (Manual) Monocytes % (Manual) Specimen Type ARTERIAL Puncture Site RR Bicarbonate Actual 15.2 L ABG pH 7.47 H ABG pCO2 21.4 L* ABG pO2 72.1 ABG O2 Sat Calc/Nila 94.3 ABG O2 Content 12.0 L ABG Base Excess -7.1 L ABG Hematocrit 27.0 L ABG Hemoglobin 9.1 L ABG Oxyhemoglobin 93.3 L ABG Carboxyhemoglobin 0.8 ABG Methemoglobin 0.30 ABG Deoxyhemoglobin 5.6 H Jose Test POSITIVE A-a O2 Gradient 186.350 H Ionized Calcium 1.13 Mode of Support SIMV % Minute Volume 10.3 Mechanical Rate 24 Inspired O2 40 Tidal Volume 400 Pressure Support 10 PEEP or CPAP 5.0 Sodium 131 L Potassium 4.32 Chloride 106 Carbon Dioxide Anion Gap BUN Creatinine Estimated GFR (MDRD) Glucose POC Glucose Calcium Total Bilirubin AST ALT Alkaline Phosphatase Serum Total Protein Albumin Globulin Albumin/Globulin Ratio Surgery Progress Note: A/P - Problem (1) Perforated duodenal ulcer with hemorrhage Current Visit: Yes Code(s): K26.6 - CHRONIC OR UNSP DUODENAL ULCER W BOTH HEMORRHAGE AND PERF Status: Acute - Plan Plan: Now intubated but stable -Clearly bilious ELEANOR output and fluid around liver on the scan. Drain is in good position, I don't think this is infected fluid -Question is whether this represents duodenal stump leak vs ductal leak -Would continue TPN, drainage and NPO for now. Expect bilirubin to continue to trend down
[2019-01-03] MEDS: Potassium Chloride 40 MEQ in Sodium Chloride 0.45% 1,000 ML IV SCH (10:03)
[2019-01-03] MEDS: Labetalol HCl 100 MG/20 ML VIAL SLOW IVP PRN ×3 (10:14→16:15)
[2019-01-03] MEDS ORDERED: Insulin Glargine 20 UNITS in Pre-Filled Syringe 1 EACH SC SCH (11:30)
[2019-01-03] MEDS ORDERED: Enoxaparin Sodium 40 MG/0.4 ML SYRINGE SC SCH (11:45)
[2019-01-03] MEDS ORDERED: DC Sedation Protocol FS ONE (12:24)
--- NOTE | 2019-01-03 13:13 | PDOC.PN ---
- Subjective Encounter Start Date: 01/03/19 Encounter Start Time: 13:12 pt is extubated this afternoon, family bedside Patient seen and examined. No overnight events - Objective Resuscitation Status - Order Detail: 12/24/18 21:39 Resuscitation Status Routine Resuscitation Status: FULL: Full Resuscitation MAR Reviewed: Yes Vital Signs & Weight: Vital Signs (12 hours) Temp Pulse Resp BP Pulse Ox 01/03/19 13:08 70 197/105 H 01/03/19 12:44 99 01/03/19 12:25 99 01/03/19 12:00 99.9 F H 21 H 01/03/19 11:06 70 197/105 H 01/03/19 10:14 70 180/84 H 01/03/19 10:00 21 H 01/03/19 08:00 26 H 93 L 01/03/19 07:41 70 180/84 H 01/03/19 07:00 100.8 F H 01/03/19 06:00 24 H 01/03/19 04:00 98.4 F 24 H 01/03/19 02:14 71 151/70 H 01/03/19 02:00 24 H Weight Admit Weight 125 lb Weight 136 lb 14.513 oz Most Recent Monitor Data Heart Rate from ECG 73 NIBP 184/86 NIBP BP-Mean 118 Respiration from ECG 27 SpO2 97 I&O: 01/02/19 01/03/19 01/04/19 06:59 06:59 06:59 Intake Total 2609.4 2725.1 100 Output Total 2745 1565 340 Balance -135.6 1160.1 -240 Result Diagrams: 01/03/19 05:15 01/03/19 05:15 Additional Labs: Accuchecks 01/02/19 22:21 POC Glucose 449 H Radiology Reviewed by me: Yes (chest xray reviewed) EKG Reviewed by me: Yes (nsr) Phys Exam - Physical Examination Constitutional: NAD HEENT: PERRLA, sclera anicteric NG tube+ Neck: no JVD, supple central line+ Respiratory: no wheezing, no rales, no rhonchi Cardiovascular: RRR, no significant murmur, no rub Gastrointestinal: soft surgical site with dressing Musculoskeletal: no edema, pulses present Neurological: moves all 4 limbs Lymphatic: no nodes Psychiatric: normal affect Skin: no rash, normal turgor Dx/Plan (1) Upper GI bleed Code(s): K92.2 - GASTROINTESTINAL HEMORRHAGE, UNSPECIFIED Status: Acute (2) Anemia due to acute blood loss Code(s): D62 - ACUTE POSTHEMORRHAGIC ANEMIA Status: Acute Comment: s/p total 4 unit PRBC (3) Perforated duodenal ulcer with hemorrhage Code(s): K26.6 - CHRONIC OR UNSP DUODENAL ULCER W BOTH HEMORRHAGE AND PERF Status: Acute Comment: required surgical repair this admission (4) S/P bypass gastrojejunostomy Code(s): Z98.0 - INTESTINAL BYPASS AND ANASTOMOSIS STATUS Status: Acute Comment: s/p re exploration of abdomen and wash out 12/29/18 (5) Abnormal LFTs Code(s): R94.5 - ABNORMAL RESULTS OF LIVER FUNCTION STUDIES Status: Acute Comment: due to billiary obstruction from periampullary swelling (6) Hypophosphatemia Code(s): E83.39 - OTHER DISORDERS OF PHOSPHORUS METABOLISM Status: Acute (7) Hypomagnesemia Code(s): E83.42 - HYPOMAGNESEMIA Status: Acute (8) Hypokalemia Code(s): E87.6 - HYPOKALEMIA Status: Acute (9) Chronic pain disorder Code(s): G89.4 - CHRONIC PAIN SYNDROME Status: Chronic (10) Diabetes type 2, controlled Code(s): E11.9 - TYPE 2 DIABETES MELLITUS WITHOUT COMPLICATIONS Status: Chronic (11) Dyslipidemia Code(s): E78.5 - HYPERLIPIDEMIA, UNSPECIFIED Status: Chronic (12) HTN (hypertension) Code(s): I10 - ESSENTIAL (PRIMARY) HYPERTENSION Status: Chronic Qualifiers: Comment: labile control (13) Neuropathic pain Status: Chronic (14) Obesity (BMI 30.0-34.9) Code(s): E66.9 - OBESITY, UNSPECIFIED Status: Chronic (15) PUD (peptic ulcer disease) Code(s): K27.9 - PEPTIC ULC, SITE UNSP, UNSP AC OR CHR, W/O HEMOR OR PERF Status: Chronic (16) Restless leg syndrome Status: Chronic (17) Acute metabolic encephalopathy Code(s): G93.41 - METABOLIC ENCEPHALOPATHY Status: Acute (18) Acute respiratory failure Code(s): J96.00 - ACUTE RESPIRATORY FAILURE, UNSP W HYPOXIA OR HYPERCAPNIA Status: Acute (19) Hyperglycemia Code(s): R73.9 - HYPERGLYCEMIA, UNSPECIFIED Status: Acute (20) Transaminitis Code(s): R74.0 - NONSPEC ELEV OF LEVELS OF TRANSAMNS & LACTIC ACID DEHYDRGNSE Status: Acute - Plan cont current plan of care, plan discussed w/ family, continue antibiotics, respiratory therapy * medication reviewed as below * symptomatic treatment * s/p extubation * BP is labile * on TPN * discussed with family * continue supportive care. Review of Systems - Review of Systems Other: not reliable due to pt's level of cognitive status - Medications/Allergies Allergies/Adverse Reactions: Allergies Allergy/AdvReac Type Severity Reaction Status Date / Time ciprofloxacin Allergy Verified 11/06/18 19:36 Medications: Current Medications Acetaminophen (Tylenol) 650 mg PO Q6H PRN PRN Reason: Pain Last Admin: 12/29/18 15:30 Dose: 650 mg Acetaminophen (Tylenol) 975 mg WA Q8H PRN PRN Reason: Fever > 101 Albuterol/Ipratropium (Duoneb) 3 ml NEB Q4H PRN PRN Reason: Wheezing Albuterol/Ipratropium (Duoneb) 3 ml NEB [id number] [facility] Last Admin: 01/03/19 07:41 Dose: 3 ml Clonidine (Catapres) 0.1 mg PO Q4H PRN PRN Reason: SBP Greater Than 180 Last Admin: 12/29/18 15:31 Dose: 0.1 mg Clonidine (Kxfklyhl-Ciq-0) 0.2 mg TD Q7D [facility] Last Admin: 01/02/19 18:24 Dose: 0.2 mg Dextrose/Water (Dextrose 50%) 25 gm SLOW IVP PRN PRN PRN Reason: Hypoglycemia Diphenhydramine HCl (Benadryl) 25 mg IVP Q3H PRN PRN Reason: Itching Last Admin: 12/30/18 15:37 Dose: 25 mg Diphenhydramine HCl (Benadryl) 25 mg PO Q3H PRN PRN Reason: Itching Last Admin: 12/28/18 18:12 Dose: 25 mg Diphenhydramine HCl (Benadryl) 25 mg IM Q3H PRN PRN Reason: Itching Last Admin: 12/29/18 11:11 Dose: 25 mg Enoxaparin Sodium (Lovenox) 40 mg SC 0900 [facility] Enoxaparin Sodium (Lovenox) 40 mg SC ONE [facility] Stop: 01/03/19 13:45 Fentanyl (Duragesic) 75 mcg TD Q3D [facility] Last Admin: 01/02/19 12:25 Dose: 75 mcg Gabapentin (Neurontin) 300 mg PO TID [facility] Last Admin: 01/03/19 09:12 Dose: 300 mg Glucagon (Glucagon) 1 mg IM PRN PRN PRN Reason: Hypoglycemia Hydralazine HCl (Apresoline) 10 mg SLOW IVP Q2H PRN PRN Reason: SBP > 170 or DBP > 100 Last Admin: 01/01/19 16:18 Dose: 10 mg Dextrose/Water (D5w) 1,000 mls @ 0 mls/hr IV .Q0M PRN PRN Reason: Hypoglycemia Potassium Chloride 40 meq/ (Sodium Chloride) 1,020 mls @ 50 mls/hr IV .[id number] [facility] Last Admin: 01/03/19 10:03 Dose: 1,020 mls Fat Emulsion Intravenous 100 ml/ Sodium Acetate 40 meq/Sodium Chloride 30 meq/ Potassium Chloride 20 meq/Potassium Phosphate 30 mmol/Calcium Gluconate 10 meq/ Magnesium Sulfate 10 meq/Multivitamins 10 ml/ Chromium/Copper/Manganese/Seleni/ Zn 5 ml/ Dextrose/Water/ Sterile Water/ Amino Acids 1,086.7021 mls @ 45.279 mls /hr IV 2200 [facility] Last Admin: 01/02/19 21:57 Dose: 1,086.7021 mls Piperacillin Sod/Tazobactam (Sod 4.5 gm/ Sodium Chloride) 100 mls @ 200 mls/hr IVPB Q8HR [facility] Last Admin: 01/03/19 05:21 Dose: 100 mls Cefepime HCl 1 gm/ Sodium (Chloride) 100 mls @ 200 mls/hr IVPB 1000,2200 [facility] Last Admin: 01/03/19 09:11 Dose: 100 mls Insulin Glargine 20 units/ (Miscellaneous Medication) 0.2 mls @ 0 mls/hr SC QAM [facility] Insulin Glargine 20 units/ (Miscellaneous Medication) 0.2 mls @ 0 mls/hr SC ONE [facility] Stop: 01/03/19 13:30 Insulin Human Lispro (Humalog) 0 units SC .AGGRESSIVE SLIDING PRN; Protocol PRN Reason: AGGRESSIVE SLIDING SCALE Labetalol HCl (Normodyne) 20 mg SLOW IVP Q2H PRN PRN Reason: SBP Greater Than 180 Last Admin: 01/03/19 13:08 Dose: 20 mg Lorazepam (Ativan) 1 mg SLOW IVP Q4H PRN PRN Reason: Anxiety/Agitation Last Admin: 01/02/19 16:20 Dose: 1 mg Methylprednisolone Sodium Succinate (Solu-Medrol) 40 mg IVP 0400,1000,1600, 2200 [facility] Last Admin: 01/03/19 10:03 Dose: 40 mg Naloxone HCl (Narcan) 0.2 mg IV Q5MIN PRN PRN Reason: Opiate Reversal Octreotide Acetate (Sandostatin) 100 mcg SC Q8HR [facility] Last Admin: 01/03/19 05:18 Dose: 100 mcg Ondansetron HCl (Zofran) 4 mg IVP Q6H PRN PRN Reason: Nausea/Vomiting Last Admin: 12/30/18 20:56 Dose: 4 mg Pantoprazole Sodium (Protonix) 40 mg IVP Q12HR [facility] Last Admin: 01/03/19 09:12 Dose: 40 mg Phenol (Chloraseptic [place] 180 Ml Bot) 0 ml PO Q4H PRN PRN Reason: Sore Throat Last Admin: 12/31/18 05:25 Dose: 1 spray Promethazine HCl (Phenergan) 12.5 mg IM Q4H PRN PRN Reason: Nausea/Vomiting Last Admin: 12/29/18 09:09 Dose: 12.5 mg Sodium Chloride (Flush - Normal Saline) 10 ml IVF PRN PRN PRN Reason: Saline Flush Sterile Water (Bacteriostatic Water) 1 ml FS PRN PRN PRN Reason: RECONSTITUTION
[2019-01-03] MEDS: hydrALAZINE 20 MG/ML VIAL SLOW IVP PRN ×4 (14:24→22:30)
[2019-01-03] MEDS: [UNRECOGNIZED DRUG - OTHER] IV SCH (22:05)
[2019-01-03] MEDS: SODIUM ACETATE IV SCH (22:05)
[2019-01-03] MEDS: SODIUM CHLORIDE IV SCH (22:05)
[2019-01-03] MEDS: FAT EMULSIONS IV SCH (22:05)
[2019-01-04] MEDS: methylPREDNISolone Sod Succ 40 MG VIAL IVP SCH (03:08)
[2019-01-04] MEDS: hydrALAZINE 20 MG/ML VIAL SLOW IVP PRN ×4 (03:08→18:08)
[2019-01-04] MEDS: Acetaminophen 325 MG TAB PO PRN ×2 (04:15→20:57)
[2019-01-04] MEDS: cloNIDine 0.1 MG TAB PO PRN ×3 (04:15→18:31)
[2019-01-04] MEDS: HumaLOG 300 UNITS/3 ML VIAL SC PRN ×4 (04:26→21:09)
[2019-01-04] MEDS: Piperacillin/Tazobactam 4.5 GM in Sodium Chloride 0.9% 100 ML IVPB SCH (05:23)
[2019-01-04] MEDS: Labetalol HCl 100 MG/20 ML VIAL SLOW IVP PRN ×5 (05:23→17:02)
[2019-01-04] MEDS: Lorazepam 2 MG/ML VIAL SLOW IVP PRN ×2 (05:23→10:25)
[2019-01-04 05:26] LABS: ALT (SGPT) 85 U/L (8-55); AST (SGOT) 71 U/L (5-34); Albumin 2.6 g/dL (3.4-4.8); Alkaline Phosphatase 181 U/L (40-150); Anion Gap 14 mmol/L (10-20); BUN (Urea Nitrogen) 25 mg/dL (9.8-20.1); Bilirubin, Total 3.5 mg/dL (0.2-1.2); Calc. Creatinine Clearance 83 mL/min (70-130); Calcium 8.7 mg/dL (7.8-10.44); Carbon Dioxide 19 mmol/L (23-31); Chloride 107 mmol/L (98-107); Estimated GFR-MDRD 85; Globulin 3.6 g/dL (2.4-3.5); Glucose 315 mg/dL (80-115); Potassium 3.6 mmol/L (3.5-5.1); Protein, Total 6.2 g/dL (6.0-8.3); Sodium 136 mmol/L (136-145)
[2019-01-04] MEDS: Octreotide Acetate 100 MCG/ML VIAL SC SCH ×3 (05:36→22:18)
[2019-01-04 06:27] LABS: Hemoglobin 9.7 g/dL (12.0-16.0); Mean Corpuscular HGB CONC 31.8 g/dL (32.0-36.0); Mean Corpuscular Hemoglobin 28.5 pg (27.0-31.0); Mean Corpuscular Volume 89.5 fL (78.0-98.0); Mean Platelet Volume 8.8 fL (7.4-10.4); Platelet Count 532 thou/uL (130-400); RBC Distribution Width 15.8 % (11.5-14.5); Red Blood Cell (RBC) Count 3.42 mill/uL (4.20-5.40); White Blood Cell (WBC) Count 29.7 thou/uL (4.8-10.8)
--- NOTE | 2019-01-04 07:55 | RAD ---
XR Chest 1 View Portable HISTORY: Respiratory failure COMPARISON: Previous day FINDINGS: There is been interval removal of the endotracheal tube since the previous days exam. A sma ll right pleural effusion is seen. Bibasilar atelectatic change versus mild infiltrates are noted. No pneumothoraces are identified.
[2019-01-04 07:57] LABS: Band 21 % (5-11); Hypochromia SLIGHT = 6-15 cells (100X) (0-5/hpf); Large Platelets SLIGHT; Lymphocytes 1 % (21-51); MDiff Complete? YES; Metamyelocyte 3 % (0-0); Monocytes 2 % (0-10); Neutrophil 73 % (42-75); Platelet Morphology Comment Appears Increased; Polychromasia MODERATE = 3-4 cells (100X) (0-2/hpf)
--- NOTE | 2019-01-04 08:46 | PRG ---
DATE OF SERVICE: 01/04/2019 SUBJECTIVE: She remains in the ICU, nauseated, less pain. OBJECTIVE: VITAL SIGNS: Pulse 88, blood pressure 194/88, saturations 95% on 4 L, respiratory rate 19. Is and Os have been consistently negative. CHEST: Decreased breath sounds. No wheezing. CARDIAC: Normal S1 and S2. No gallops. ABDOMEN: No masses. IMAGING STUDIES: X-ray shows small lungs, elevated diaphragm. Left retrocardiac pneumonia is better. LABORATORY DATA: White count 29,000, with a left shift. Liver function elevated. IMPRESSION: 1. Status post laparotomy, gastrointestinal bleed. 2. Respiratory failure, encephalopathy, tracheobronchitis, methicillin-resistant Staphylococcus aureus. 3. Severe deconditioning. 4. Abnormal liver function test. PLAN: 1. Zyvox is being initiated. 2. Otherwise, continue nutrition, PT, supportive care. 3. We will follow. Job ID: [id number]
[2019-01-04] MEDS ORDERED: methylPREDNISolone Sod Succ 40 MG VIAL IVP SCH (09:00)
[2019-01-04] MEDS: Insulin Glargine 20 UNITS in Pre-Filled Syringe 1 EACH SC SCH (09:02)
[2019-01-04] MEDS: Enoxaparin Sodium 40 MG/0.4 ML SYRINGE SC SCH (09:02)
[2019-01-04] MEDS: Gabapentin 300 MG CAP PO SCH ×3 (09:05→20:46)
[2019-01-04] MEDS: Potassium Chloride 40 MEQ in Sodium Chloride 0.45% 1,000 ML IV SCH (09:05)
--- NOTE | 2019-01-04 09:07 | PRG ---
DATE OF SERVICE: 01/02/2019 SUBJECTIVE: Ms. Qureshi is seen for Dr. Morgan. OBJECTIVE: VITAL SIGNS: The patient has had a temperature to 100.1 degrees, heart rate 67, blood pressure 147/67. Her drain ELEANOR has put out 530 in the last 24 hours. Urine output is good. The patient was in IMCU, managing her with a FOOTBALL COACH. Apparently, the family was pushing her Dilaudid FOOTBALL COACH and she went into respiratory difficulty, required intubation, has been moved to the ICU. This morning, her white count is 16.8, hemoglobin 10.2. Her bilirubin has fallen from 7.6 to 5.2. Her electrolytes are acceptable, normal. Glucose is 200 to 255. LUNGS: Clear to auscultation. CARDIAC: Regular and rhythm without murmur or gallop. ABDOMEN: Soft. She is on the ventilator. EXTREMITIES: Unremarkable. I had a discussion with the family regarding her prognosis as requested by the family. The patient had problems with chronic pain, restless legs syndrome, required nonsteroidal anti-inflammatories which she had avoided for about 6-8 weeks prior to this event. Although she had chronic pain, she was functional and never expressed that she was tired of living. I have told the family that there is a good chance the patient will survive this, but it will be a prolonged course probably requiring rehab or an LTAC. Hope is that she will be coming off respirator soon. The patient did have ELEANOR drain fluid which appears bilious, sent for analysis demonstrating fluid total bilirubin of 12.3 and amylase calculate. ASSESSMENT AND PLAN: 1. 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 Would continue ELEANOR drainage suggested perihepatic fluid and one could consider repeating her HIDA scan to see if it finds this way into the GI tract or extravasates. She may need a CT-guided drain placement to facilitate drainage. We will discuss with Dr. Morgan, leave that decision to him. 2. Respiratory failure. Continue her ventilation. Job ID: [id number]
[2019-01-04] MEDS: Pantoprazole 40 MG VIAL IVP SCH ×2 (09:12→20:46)
[2019-01-04] MEDS: Linezolid 600 MG in Premix Bag 1 BAG IVPB SCH ×2 (09:15→20:45)
[2019-01-04] MEDS: Piperacillin/Tazobactam 3.375 GM in Sodium Chloride 0.9% 100 ML IVPB SCH ×2 (12:10→17:24)
[2019-01-04] MEDS ORDERED: Lisinopril 20 MG TAB PO SCH ×2 (14:15→21:00)
--- NOTE | 2019-01-04 15:07 | PRG ---
DATE OF SERVICE: 01/04/2019 SUBJECTIVE: The patient remains in ICU C7 room. She feels weak and tired. OBJECTIVE: VITAL SIGNS: Blood pressure is 212/99, pulse is 69, respiratory rate 18, and O2 saturation is 99% on 3 L by nasal cannula. GENERAL: She looks tired and exhausted. She has an NG-tube in her nostril. HEENT: Her pupils responding to light properly. Sclerae are nonicteric. Conjunctivae are palish. Oral mucosa is somewhat dry. NECK: Supple. LUNGS: Breath sounds diminished at both bases. HEART: S1 and S2 normal. No S3. No S4. ABDOMEN: Soft. Bowel sounds are sluggish. There is a drain in the right side of the abdomen and the dressing covering the midline incision. EXTREMITIES: No clubbing, cyanosis, or edema. NEUROLOGIC: She follows my commands. She moves her all 4 extremities. LABORATORY DATA: Labs showed a white count of 29.7, hemoglobin 9.7, hematocrit 30.6, platelet count is 532,000, and 21 bands. Sodium of 136, potassium 3.6, chloride 107, CO2 of 19, BUN 25, creatinine 0.70, glycemia is ranging from 231 to 403, total bilirubin 3.5, AST 71, ALT 85, alkaline phosphatase 181, albumin 2.6, and globulin 3.6. Post bronchial washings showed MRSA sensitive to vancomycin and Zyvox. Also levofloxacin, clarithromycin, clindamycin, Cipro, and rifampin. IMPRESSION: 1. Perforated duodenal ulcer with hemorrhage and stricture, status post antrectomy and gastrojejunostomy. 2. Respiratory failure with positive methicillin-resistant Staphylococcus aureus in her bronchial washings, currently on Zyvox. 3. Uncontrolled diabetes mellitus with current status on TPN. The patient is started on long-acting insulin along with aggressive sliding scale. 4. Encephalopathy, improved. 5. Upper gastrointestinal bleeding. 6. Hypertension. 7. Dyslipidemia. 8. Elevated liver function tests. DISCUSSION: The patient is started on lisinopril 20 mg once a day. Her normal home dose is 20 mg twice a day. We will gradually get to this dosing with time. We will continue her p.r.n. labetalol and hydralazine. We will continue TPN and n.p.o. status. We will continue Zyvox and IV fluids and we will continue Zosyn, prednisolone and pantoprazole with octreotide. Job ID: [id number]
--- NOTE | 2019-01-04 15:19 | PDOC.GSPN ---
Surgery Progress Note: Subj - Subjective Patient reports: no new complaints (No nausea) Surgery Progress Note: Obj - Vital signs Vital signs: Vital Signs - Most Recent Temp Pulse Resp BP Pulse Ox 97.6 F 69 18 191/88 H 99 01/04/19 12:00 01/04/19 12:47 01/04/19 12:47 01/04/19 14:48 01/04/19 12:47 - Physical Exam General: no distress Cardiovascular: regular rate and rhythm Respiratory: clear to auscultation Abdomen: soft, non tender, nondistended Wound: healing well Surgery Progress Note: Results - Labs Result Diagrams: 01/04/19 04:20 01/04/19 04:20 Lab results: Laboratory Results - last 24 hr 01/04/19 01/04/19 01/04/19 04:20 04:20 04:27 WBC 29.7 H RBC 3.42 L Hgb 9.7 L Hct 30.6 L MCV 89.5 MCH 28.5 MCHC 31.8 L RDW 15.8 H Plt Count 532 H MPV 8.8 Neutrophils % (Manual) 73 Band Neuts % (Manual) 21 H Lymphocytes % (Manual) 1 L Monocytes % (Manual) 2 Metamyelocytes % (Man) 3 H Neutrophils # Not Reportable Lymphocytes # Not Reportable Hypochromia SLIGHT = 6-15 cells Large Platelets SLIGHT Plt Morphology Comment Appears Increased H Polychromasia MODERATE = 3-4 cells H Sodium 136 Potassium 3.6 Chloride 107 Carbon Dioxide 19 L Anion Gap 14 BUN 25 H Creatinine 0.70 Estimated GFR (MDRD) 85 Glucose 315 H POC Glucose 290 H Calcium 8.7 Total Bilirubin 3.5 H AST 71 H ALT 85 H Alkaline Phosphatase 181 H Serum Total Protein 6.2 Albumin 2.6 L Globulin 3.6 H Albumin/Globulin Ratio 0.7 L Surgery Progress Note: A/P - Problem (1) Perforated duodenal ulcer with hemorrhage Current Visit: Yes Code(s): K26.6 - CHRONIC OR UNSP DUODENAL ULCER W BOTH HEMORRHAGE AND PERF Status: Acute - Plan Plan: Minimal NG output -DC NG -start clears -LFT's trending down -duodenal stump leak, no plans for OR yet
[2019-01-04] MEDS ORDERED: niCARdipine 40MG In NaCl 40 MG/200 ML BAG IVPB SCH (19:15)
[2019-01-04] MEDS: niCARdipine 50 MG in Sodium Chloride 0.9% 250 ML 230 ML IVPB SCH (19:40)
[2019-01-04] MEDS: Lisinopril 20 MG TAB PO SCH (20:46)
[2019-01-04] MEDS: cloNIDine 0.2 MG TAB PO SCH (20:46)
[2019-01-04] MEDS: diphenhydrAMINE 25 MG CAP PO PRN (20:57)
[2019-01-04] MEDS: [UNRECOGNIZED DRUG - OTHER] IV SCH (22:18)
[2019-01-04] MEDS: SODIUM CHLORIDE IV SCH (22:18)
[2019-01-04] MEDS: FAT EMULSIONS IV SCH (22:18)
[2019-01-04] MEDS: SODIUM ACETATE IV SCH (22:18)
[2019-01-05] MEDS: Piperacillin/Tazobactam 3.375 GM in Sodium Chloride 0.9% 100 ML IVPB SCH ×4 (00:20→17:25)
[2019-01-05 04:15] LABS: ALT (SGPT) 102 U/L (8-55); AST (SGOT) 87 U/L (5-34); Albumin 2.4 g/dL (3.4-4.8); Alkaline Phosphatase 156 U/L (40-150); Anion Gap 11 mmol/L (10-20); BUN (Urea Nitrogen) 22 mg/dL (9.8-20.1); Bilirubin, Total 3.7 mg/dL (0.2-1.2); Calc. Creatinine Clearance 94 mL/min (70-130); Calcium 8.5 mg/dL (7.8-10.44); Carbon Dioxide 21 mmol/L (23-31); Chloride 108 mmol/L (98-107); Estimated GFR-MDRD Greater than 90; Globulin 3.3 g/dL (2.4-3.5); Glucose 210 mg/dL (80-115); Potassium 3.9 mmol/L (3.5-5.1); Protein, Total 5.7 g/dL (6.0-8.3); Sodium 136 mmol/L (136-145)
[2019-01-05 04:17] LABS: Band 12 % (5-11); Hemoglobin 8.9 g/dL (12.0-16.0); Lymphocytes 4 % (21-51); MDiff Complete? YES; Mean Corpuscular HGB CONC 32.2 g/dL (32.0-36.0); Mean Corpuscular Hemoglobin 29.1 pg (27.0-31.0); Mean Corpuscular Volume 90.3 fL (78.0-98.0); Monocytes 8 % (0-10); Myelocyte 1 % (0-0); Neutrophil 75 % (42-75); Platelet Count 495 thou/uL (130-400); Platelet Morphology Comment Appears Increased; RBC Distribution Width 15.7 % (11.5-14.5); Red Blood Cell (RBC) Count 3.04 mill/uL (4.20-5.40); White Blood Cell (WBC) Count 22.8 thou/uL (4.8-10.8)
[2019-01-05] MEDS: Potassium Chloride 40 MEQ in Sodium Chloride 0.45% 1,000 ML IV SCH (04:38)
[2019-01-05] MEDS: HumaLOG 300 UNITS/3 ML VIAL SC PRN ×5 (04:38→21:57)
[2019-01-05] MEDS: Ondansetron PF 4 MG/2 ML Vial IVP PRN (05:32)
[2019-01-05] MEDS: Octreotide Acetate 100 MCG/ML VIAL SC SCH ×3 (05:48→22:07)
--- NOTE | 2019-01-05 07:31 | RAD ---
Exam: Chest one view HISTORY:Respiratory distress. Comparison: 01/04/2019 FINDINGS: Persistently diminished lung volumes. Bibasilar pleural and parenchymal changes do remain. Stable rig ht-sided vascular catheter. No pneumothorax. Stable cardiac silhouette IMPRESSION: No significant interval change.
--- NOTE | 2019-01-05 08:51 | PRG ---
DATE OF SERVICE: 01/05/2019 SUBJECTIVE: This morning, she is awake, alert, responsive . She denies any pain, discomfort, or difficulty breathing. OBJECTIVE: VITAL SIGNS: Her saturations are 94% on room air, blood pressure is 146/58, respirations are still elevated about 30, temperature is 98. GENERAL: She moves all 4 extremities. CHEST: Decreased breath sounds. No wheezing. No rhonchi. CARDIAC: Normal S1, S2. No gallops or masses. LABORATORY DATA: Renal function is still slightly elevated. White count 20,000, H and H of 8 and 27, platelet count is normal. IMPRESSION: 1. Status post respiratory failure, extensive secretions, tracheobronchitis, pneumonia, methicillin-resistant Staphylococcus aureus. 2. Status post laparotomy for bleeding ulcer. 3. Severe deconditioning. 4. Hypertension. PLAN: Continue Zyvox, broad-spectrum antibiotics, PT and supportive care. She can probably be transferred out to the surgical floor at a later time. Job ID: [id number]
[2019-01-05] MEDS ORDERED: Lisinopril 20 MG TAB PO SCH (09:00)
[2019-01-05] MEDS: Linezolid 600 MG in Premix Bag 1 BAG IVPB SCH ×2 (09:05→20:14)
[2019-01-05] MEDS: cloNIDine 0.2 MG TAB PO SCH ×2 (09:53→20:15)
[2019-01-05] MEDS: Gabapentin 300 MG CAP PO SCH ×3 (09:53→20:15)
[2019-01-05] MEDS: Enoxaparin Sodium 40 MG/0.4 ML SYRINGE SC SCH (09:55)
[2019-01-05] MEDS: Pantoprazole 40 MG VIAL IVP SCH ×2 (09:55→20:16)
[2019-01-05] MEDS: Lisinopril 20 MG TAB PO SCH ×2 (09:55→20:15)
[2019-01-05] MEDS: Insulin Glargine 20 UNITS in Pre-Filled Syringe 1 EACH SC SCH (09:59)
[2019-01-05] MEDS: fentaNYL 75 mcg/hour Patch TD SCH (10:53)
--- NOTE | 2019-01-05 11:35 | PDOC.PN ---
- Subjective Encounter Start Date: 01/05/19 Encounter Start Time: 10:15 -: old records requested/rev Patient seen and examined. No new complaints. No overnight events - Objective Resuscitation Status - Order Detail: 12/24/18 21:39 Resuscitation Status Routine Resuscitation Status: FULL: Full Resuscitation MAR Reviewed: Yes Vital Signs & Weight: Vital Signs (12 hours) Temp Pulse Resp BP Pulse Ox 01/05/19 09:55 192/92 H 01/05/19 09:53 192/92 H 01/05/19 08:00 98.5 F 97 01/05/19 06:58 85 19 01/05/19 04:00 97.6 F 01/05/19 00:12 80 27 H 100 01/05/19 00:00 97.5 F L Weight Admit Weight 125 lb Weight 130 lb 8.218 oz Most Recent Monitor Data Heart Rate from ECG 83 NIBP 164/77 NIBP BP-Mean 106 Respiration from ECG 20 SpO2 97 I&O: 01/04/19 01/05/19 01/06/19 06:59 06:59 06:59 Intake Total 2637 3575 Output Total 3080 2890 300 Balance -443 685 -300 Result Diagrams: 01/05/19 03:45 01/05/19 03:45 Additional Labs: Accuchecks 01/05/19 01/04/19 01/04/19 03:46 21:10 17:25 POC Glucose 192 H 242 H 313 H 01/04/19 12:19 POC Glucose 361 H EKG Reviewed by me: Yes (nsr) Phys Exam - Physical Examination Constitutional: NAD HEENT: PERRLA, moist MMs, sclera anicteric Neck: no JVD, supple Respiratory: no wheezing, no rales, no rhonchi Cardiovascular: RRR, no significant murmur, no rub Gastrointestinal: soft, non-tender, no distention, positive bowel sounds surgical site with dressing, ELEANOR drain+ Musculoskeletal: no edema, pulses present Neurological: non-focal, normal sensation, moves all 4 limbs Lymphatic: no nodes Psychiatric: normal affect, A&O x 3 Skin: no rash, normal turgor Dx/Plan (1) Perforated duodenal ulcer with hemorrhage Code(s): K26.6 - CHRONIC OR UNSP DUODENAL ULCER W BOTH HEMORRHAGE AND PERF Status: Acute Comment: required surgical repair this admission (2) S/P bypass gastrojejunostomy Code(s): Z98.0 - INTESTINAL BYPASS AND ANASTOMOSIS STATUS Status: Acute Comment: s/p re exploration of abdomen and wash out 12/29/18 (3) Hypertensive urgency Code(s): I16.0 - HYPERTENSIVE URGENCY Status: Acute (4) Upper GI bleed Code(s): K92.2 - GASTROINTESTINAL HEMORRHAGE, UNSPECIFIED Status: Resolved (5) Anemia due to acute blood loss Code(s): D62 - ACUTE POSTHEMORRHAGIC ANEMIA Status: Acute Comment: s/p total 5 unit PRBC (6) Abnormal LFTs Code(s): R94.5 - ABNORMAL RESULTS OF LIVER FUNCTION STUDIES Status: Acute Comment: due to billiary obstruction from periampullary swelling (7) Hypophosphatemia Code(s): E83.39 - OTHER DISORDERS OF PHOSPHORUS METABOLISM Status: Resolved (8) Hypomagnesemia Code(s): E83.42 - HYPOMAGNESEMIA Status: Resolved (9) Hypokalemia Code(s): E87.6 - HYPOKALEMIA Status: Acute (10) Chronic pain disorder Code(s): G89.4 - CHRONIC PAIN SYNDROME Status: Chronic (11) Diabetes type 2, controlled Code(s): E11.9 - TYPE 2 DIABETES MELLITUS WITHOUT COMPLICATIONS Status: Chronic (12) Dyslipidemia Code(s): E78.5 - HYPERLIPIDEMIA, UNSPECIFIED Status: Chronic (13) HTN (hypertension) Code(s): I10 - ESSENTIAL (PRIMARY) HYPERTENSION Status: Chronic Qualifiers: Comment: labile control (14) Neuropathic pain Status: Chronic (15) Obesity (BMI 30.0-34.9) Code(s): E66.9 - OBESITY, UNSPECIFIED Status: Chronic (16) PUD (peptic ulcer disease) Code(s): K27.9 - PEPTIC ULC, SITE UNSP, UNSP AC OR CHR, W/O HEMOR OR PERF Status: Chronic (17) Restless leg syndrome Status: Chronic (18) Acute metabolic encephalopathy Code(s): G93.41 - METABOLIC ENCEPHALOPATHY Status: Resolved (19) Acute respiratory failure Code(s): J96.00 - ACUTE RESPIRATORY FAILURE, UNSP W HYPOXIA OR HYPERCAPNIA Status: Resolved (20) Hyperglycemia Code(s): R73.9 - HYPERGLYCEMIA, UNSPECIFIED Status: Acute (21) Transaminitis Code(s): R74.0 - NONSPEC ELEV OF LEVELS OF TRANSAMNS & LACTIC ACID DEHYDRGNSE Status: Acute - Plan cont current plan of care, plan discussed w/ family * medication reviewed as below * symptomatic treatment * currently on cardene drip * currently on clear liquid diet * discussed with daughter bedside * post surgical care as per surgeon * continue TPN. Review of Systems - Review of Systems ENT: negative: Ear Pain, Ear Discharge, Nose Pain, Nose Discharge, Nose Congestion, Mouth Pain, Mouth Swelling, Throat Pain, Throat Swelling, Other Respiratory: negative: Cough, Dry, Shortness of Breath, Hemoptysis, SOB with Excertion, Pleuritic Pain, Sputum, Wheezing Cardiovascular: negative: chest pain, palpitations, orthopnea, paroxysmal nocturnal dyspnea, edema, light headedness, other Gastrointestinal: negative: Nausea, Vomiting, Abdominal Pain, Diarrhea, Constipation, Melena, Hematochezia, Other Genitourinary: negative: Dysuria, Frequency, Incontinence, Hematuria, Retention , Other Musculoskeletal: negative: Neck Pain, Shoulder Pain, Arm Pain, Back Pain, Hand Pain, Leg Pain, Foot Pain, Other - Medications/Allergies Allergies/Adverse Reactions: Allergies Allergy/AdvReac Type Severity Reaction Status Date / Time ciprofloxacin Allergy Verified 11/06/18 19:36 Medications: Current Medications Acetaminophen (Tylenol) 650 mg PO Q6H PRN PRN Reason: Pain Last Admin: 01/04/19 20:57 Dose: 650 mg Acetaminophen (Tylenol) 975 mg NM Q8H PRN PRN Reason: Fever > 101 Albuterol/Ipratropium (Duoneb) 3 ml NEB Q4H PRN PRN Reason: Wheezing Albuterol/Ipratropium (Duoneb) 3 ml NEB [id number] [facility] Last Admin: 01/05/19 06:58 Dose: 3 ml Clonidine (Catapres) 0.1 mg PO Q4H PRN PRN Reason: SBP Greater Than 180 Last Admin: 01/04/19 18:31 Dose: 0.1 mg Clonidine (Catapres) 0.2 mg PO BID [facility] Last Admin: 01/05/19 09:53 Dose: 0.2 mg Dextrose/Water (Dextrose 50%) 25 gm SLOW IVP PRN PRN PRN Reason: Hypoglycemia Diphenhydramine HCl (Benadryl) 25 mg IVP Q3H PRN PRN Reason: Itching Last Admin: 12/30/18 15:37 Dose: 25 mg Diphenhydramine HCl (Benadryl) 25 mg PO Q3H PRN PRN Reason: Itching Last Admin: 01/04/19 20:57 Dose: 25 mg Diphenhydramine HCl (Benadryl) 25 mg IM Q3H PRN PRN Reason: Itching Last Admin: 12/29/18 11:11 Dose: 25 mg Enoxaparin Sodium (Lovenox) 40 mg SC 0900 [facility] Last Admin: 01/05/19 09:55 Dose: 40 mg Fentanyl (Duragesic) 75 mcg TD Q3D [facility] Last Admin: 01/05/19 10:53 Dose: 75 mcg Gabapentin (Neurontin) 300 mg PO TID [facility] Last Admin: 01/05/19 09:53 Dose: 300 mg Glucagon (Glucagon) 1 mg IM PRN PRN PRN Reason: Hypoglycemia Hydralazine HCl (Apresoline) 10 mg SLOW IVP Q2H PRN PRN Reason: SBP > 170 or DBP > 100 Last Admin: 01/04/19 18:08 Dose: 10 mg Hydralazine HCl (Apresoline) 10 mg SLOW IVP Q3H PRN PRN Reason: SBP GREATER THAN 160 Last Admin: 01/04/19 07:38 Dose: 10 mg Dextrose/Water (D5w) 1,000 mls @ 0 mls/hr IV .Q0M PRN PRN Reason: Hypoglycemia Potassium Chloride 40 meq/ (Sodium Chloride) 1,020 mls @ 50 mls/hr IV .[id number] [facility] Last Admin: 01/05/19 04:38 Dose: 1,020 mls Fat Emulsion Intravenous 100 ml/ Sodium Acetate 40 meq/Sodium Chloride 30 meq/ Potassium Chloride 20 meq/Potassium Phosphate 30 mmol/Calcium Gluconate 10 meq/ Magnesium Sulfate 10 meq/Multivitamins 10 ml/ Chromium/Copper/Manganese/Seleni/ Zn 5 ml/ Dextrose/Water/ Sterile Water/ Amino Acids 1,086.7021 mls @ 45.279 mls /hr IV 2200 [facility] Last Admin: 01/04/19 22:18 Dose: 1,086.7021 mls Insulin Glargine 20 units/ (Miscellaneous Medication) 0.2 mls @ 0 mls/hr SC QAM [facility] Last Admin: 01/05/19 09:59 Dose: 0.2 mls Linezolid 600 mg/ Device 300 mls @ 150 mls/hr IVPB Q12HR [facility] Last Admin: 01/05/19 09:05 Dose: 300 mls Piperacillin Sod/Tazobactam (Sod 3.375 gm/ Sodium Chloride) 100 mls @ 200 mls/ hr IVPB Q6HR [facility] Last Admin: 01/05/19 05:32 Dose: 100 mls Nicardipine/Sodium Chloride (Cardene Iv) 40 mg in 200 mls @ 0 mls/hr IVPB INF [facility]; Protocol Nicardipine HCl 50 mg/ Sodium (Chloride) 250 mls @ 0 mls/hr IVPB INF [facility]; Protocol Last Admin: 01/04/19 19:40 Dose: 250 mls Insulin Human Lispro (Humalog) 0 units SC .AGGRESSIVE SLIDING PRN; Protocol PRN Reason: AGGRESSIVE SLIDING SCALE Last Admin: 01/05/19 10:15 Dose: 6 unit Labetalol HCl (Normodyne) 20 mg SLOW IVP Q2H PRN PRN Reason: SBP Greater Than 180 Last Admin: 01/04/19 17:02 Dose: 20 mg Lisinopril (Zestril) 20 mg PO BID [facility] Last Admin: 01/05/19 09:55 Dose: 20 mg Octreotide Acetate (Sandostatin) 100 mcg SC Q8HR [facility] Last Admin: 01/05/19 05:48 Dose: 100 mcg Ondansetron HCl (Zofran) 4 mg IVP Q6H PRN PRN Reason: Nausea/Vomiting Last Admin: 01/05/19 05:32 Dose: 4 mg Pantoprazole Sodium (Protonix) 40 mg IVP Q12HR [facility] Last Admin: 01/05/19 09:55 Dose: 40 mg Phenol (Chloraseptic [place] 180 Ml Bot) 0 ml PO Q4H PRN PRN Reason: Sore Throat Last Admin: 12/31/18 05:25 Dose: 1 spray Promethazine HCl (Phenergan) 12.5 mg IM Q4H PRN PRN Reason: Nausea/Vomiting Last Admin: 12/29/18 09:09 Dose: 12.5 mg Sodium Chloride (Flush - Normal Saline) 10 ml IVF PRN PRN PRN Reason: Saline Flush Last Admin: 01/04/19 10:27 Dose: 10 ml Sterile Water (Bacteriostatic Water) 1 ml FS PRN PRN PRN Reason: RECONSTITUTION
[2019-01-05] MEDS: niCARdipine 50 MG in Sodium Chloride 0.9% 250 ML 230 ML IVPB SCH ×2 (11:45→21:57)
[2019-01-05] MEDS: Acetaminophen 325 MG TAB PO PRN (12:47)
--- NOTE | 2019-01-05 13:26 | PDOC.GSPN ---
Surgery Progress Note: Subj - Subjective Narrative: complaining of more pain this pm, was pain free earlier. No nausea Surgery Progress Note: Obj - Vital signs Vital signs: Vital Signs - Most Recent Temp Pulse Resp BP Pulse Ox 98.6 F 85 19 192/92 H 97 01/05/19 12:00 01/05/19 06:58 01/05/19 06:58 01/05/19 09:55 01/05/19 08:00 - Physical Exam General: no distress Cardiovascular: regular rate and rhythm Abdomen: soft, appropriately tender Wound: healing well (dressing removed. no infection) Surgery Progress Note: Results - Labs Result Diagrams: 01/05/19 03:45 01/05/19 03:45 Lab results: Laboratory Results - last 24 hr 01/04/19 01/04/19 01/05/19 12:19 21:10 03:45 WBC RBC Hgb Hct MCV MCH MCHC RDW Plt Count MPV Neutrophils % (Manual) Band Neuts % (Manual) Lymphocytes % (Manual) Monocytes % (Manual) Myelocytes % Plt Morphology Comment Sodium 136 Potassium 3.9 Chloride 108 H Carbon Dioxide 21 L Anion Gap 11 BUN 22 H Creatinine 0.62 Estimated GFR (MDRD) Greater than 90 Glucose 210 H POC Glucose 361 H 242 H Calcium 8.5 Total Bilirubin 3.7 H AST 87 H ALT 102 H Alkaline Phosphatase 156 H Serum Total Protein 5.7 L Albumin 2.4 L Globulin 3.3 Albumin/Globulin Ratio 0.7 L 01/05/19 01/05/19 03:45 03:46 WBC 22.8 H RBC 3.04 L Hgb 8.9 L Hct 27.5 L MCV 90.3 MCH 29.1 MCHC 32.2 RDW 15.7 H Plt Count 495 H MPV 9.0 Neutrophils % (Manual) 75 Band Neuts % (Manual) 12 H Lymphocytes % (Manual) 4 L Monocytes % (Manual) 8 Myelocytes % 1 H Plt Morphology Comment Appears Increased H Sodium Potassium Chloride Carbon Dioxide Anion Gap BUN Creatinine Estimated GFR (MDRD) Glucose POC Glucose 192 H Calcium Total Bilirubin AST ALT Alkaline Phosphatase Serum Total Protein Albumin Globulin Albumin/Globulin Ratio Surgery Progress Note: A/P - Problem (1) Perforated duodenal ulcer with hemorrhage Current Visit: Yes Code(s): K26.6 - CHRONIC OR UNSP DUODENAL ULCER W BOTH HEMORRHAGE AND PERF Status: Acute - Plan Plan: Duodenal stump leak with elevated bilirubin -If output persists she will need PTC and drainage to decompress biliary system -Bilirubin trended down to 3.5 now 3.7 -Continue tpn, clears -discussed with family at bedside, they are discussing potential DNR status
[2019-01-05] MEDS: SODIUM ACETATE IV SCH (22:10)
[2019-01-05] MEDS: [UNRECOGNIZED DRUG - OTHER] IV SCH (22:10)
[2019-01-05] MEDS: SODIUM CHLORIDE IV SCH (22:10)
[2019-01-05] MEDS: FAT EMULSIONS IV SCH (22:10)
[2019-01-06] MEDS: Piperacillin/Tazobactam 3.375 GM in Sodium Chloride 0.9% 100 ML IVPB SCH ×5 (00:13→23:25)
[2019-01-06] MEDS: Octreotide Acetate 100 MCG/ML VIAL SC SCH ×3 (05:09→23:25)
[2019-01-06] MEDS: Potassium Chloride 40 MEQ in Sodium Chloride 0.45% 1,000 ML IV SCH (05:09)
--- NOTE | 2019-01-06 08:24 | PDOC.GSPN ---
Surgery Progress Note: Subj - Subjective Narrative: Complaining of no pain this am Surgery Progress Note: Obj - Vital signs Vital signs: Vital Signs - Most Recent Temp Pulse Resp BP Pulse Ox 98.0 F 89 21 H 142/71 H 100 01/06/19 04:00 01/06/19 07:31 01/06/19 07:31 01/05/19 20:15 01/06/19 07:22 - Physical Exam General: no distress Cardiovascular: regular rate and rhythm Respiratory: clear to auscultation Abdomen: soft, appropriately tender Wound: healing well Surgery Progress Note: Results - Labs Result Diagrams: 01/05/19 03:45 01/05/19 03:45 Lab results: Laboratory Results - last 24 hr 01/05/19 21:58 POC Glucose 150 H Surgery Progress Note: A/P - Problem (1) Perforated duodenal ulcer with hemorrhage Current Visit: Yes Code(s): K26.6 - CHRONIC OR UNSP DUODENAL ULCER W BOTH HEMORRHAGE AND PERF Status: Acute - Plan Plan: Bile leak/stump leak, elevated bilirubin -cont clears, tpn, drain, abx -rescan next week
[2019-01-06] MEDS: Enoxaparin Sodium 40 MG/0.4 ML SYRINGE SC SCH (09:30)
[2019-01-06] MEDS: Lisinopril 20 MG TAB PO SCH ×2 (09:34→20:21)
[2019-01-06] MEDS: cloNIDine 0.2 MG TAB PO SCH ×2 (09:34→20:21)
[2019-01-06] MEDS: Gabapentin 300 MG CAP PO SCH ×3 (09:34→20:21)
[2019-01-06] MEDS: Pantoprazole 40 MG VIAL IVP SCH ×2 (09:34→20:21)
[2019-01-06] MEDS: Insulin Glargine 20 UNITS in Pre-Filled Syringe 1 EACH SC SCH (09:40)
[2019-01-06] MEDS: Linezolid 600 MG in Premix Bag 1 BAG IVPB SCH ×2 (09:41→20:20)
--- NOTE | 2019-01-06 09:54 | PRG ---
DATE OF SERVICE: 01/06/2019 SUBJECTIVE: This morning, she is awake, alert, and responsive. No pain. No discomfort. OBJECTIVE: VITAL SIGNS: Stable. Temperature is 98, pulse 95, blood pressure 150/70, saturations are 90%, respirations 34. CHEST: Decreased breath sounds. No wheezing. CARDIAC: Normal S1, S2. No gallops. ABDOMEN: No masses. IMPRESSION: 1. Hypertension. 2. Status post lap pain. Added additional blood pressure medication, so we can try and wean her off Cardene. She remain in the ICU. Broad-spectrum antibiotics for Staph. PT supportive care. We will follow. Job ID: [id number]
[2019-01-06] MEDS: Amlodipine 5 MG TAB PO SCH (10:01)
[2019-01-06] MEDS ORDERED: fentaNYL 75 mcg/hour Patch TD SCH (11:15)
[2019-01-06] MEDS: HumaLOG 300 UNITS/3 ML VIAL SC PRN (12:08)
[2019-01-06] MEDS: Acetaminophen 1,000 MG in Premix Bag 1 BAG IVPB PRN (12:52)
--- NOTE | 2019-01-06 14:21 | PDOC.PN ---
- Subjective Encounter Start Date: 01/06/19 Encounter Start Time: 14:19 Patient seen and examined, no new issues or complaints. - Objective Resuscitation Status - Order Detail: 12/24/18 21:39 Resuscitation Status Routine Resuscitation Status: FULL: Full Resuscitation Vital Signs & Weight: Vital Signs (12 hours) Temp Pulse Resp BP Pulse Ox 01/06/19 13:26 103 H 16 01/06/19 12:00 98.2 F 01/06/19 10:01 142/71 H 01/06/19 09:34 139/76 01/06/19 08:00 97.8 F 01/06/19 07:31 89 21 H 01/06/19 07:22 100 01/06/19 04:00 98.0 F Weight Admit Weight 125 lb 3.2 oz Weight 132 lb 4.438 oz Most Recent Monitor Data Heart Rate from ECG 95 NIBP 161/75 NIBP BP-Mean 103 Respiration from ECG 34 SpO2 98 I&O: 01/05/19 01/06/19 01/07/19 06:59 06:59 06:59 Intake Total 3575 3871 400 Output Total 2890 3840 1350 Balance 685 31 -950 Result Diagrams: 01/05/19 03:45 01/05/19 03:45 Additional Labs: Accuchecks 01/06/19 01/06/19 01/05/19 10:57 04:16 21:58 POC Glucose 290 H 148 H 150 H 01/05/19 01/05/19 17:11 10:10 POC Glucose 166 H 236 H Phys Exam - Physical Examination Constitutional: NAD HEENT: PERRLA, moist MMs Neck: no nodes, no JVD Respiratory: no wheezing, no rales, no rhonchi Cardiovascular: RRR, no significant murmur, no rub Gastrointestinal: soft, non-tender, no distention Musculoskeletal: no edema, pulses present Dx/Plan (1) Anemia due to acute blood loss Code(s): D62 - ACUTE POSTHEMORRHAGIC ANEMIA Status: Acute Comment: s/p total 5 unit PRBC (2) Hypertensive urgency Code(s): I16.0 - HYPERTENSIVE URGENCY Status: Acute (3) Transaminitis Code(s): R74.0 - NONSPEC ELEV OF LEVELS OF TRANSAMNS & LACTIC ACID DEHYDRGNSE Status: Acute (4) Diabetes type 2, controlled Code(s): E11.9 - TYPE 2 DIABETES MELLITUS WITHOUT COMPLICATIONS Status: Chronic (5) Dyslipidemia Code(s): E78.5 - HYPERLIPIDEMIA, UNSPECIFIED Status: Chronic (6) HTN (hypertension) Code(s): I10 - ESSENTIAL (PRIMARY) HYPERTENSION Status: Chronic Qualifiers: Comment: labile control (7) Neuropathic pain Status: Chronic (8) Obesity (BMI 30.0-34.9) Code(s): E66.9 - OBESITY, UNSPECIFIED Status: Chronic - Plan * cont current plan of care * surgery will be doing another scan early next week to check on bile leak * no other changes for now * vitals stable * case and plan d/w patient and daughter at length, they understood and agreed with this plan.
[2019-01-06] MEDS: niCARdipine 50 MG in Sodium Chloride 0.9% 250 ML 230 ML IVPB SCH (19:50)
[2019-01-06] MEDS: SODIUM CHLORIDE IV SCH (21:57)
[2019-01-06] MEDS: FAT EMULSIONS IV SCH (21:57)
[2019-01-06] MEDS: SODIUM ACETATE IV SCH (21:57)
[2019-01-06] MEDS: [UNRECOGNIZED DRUG - OTHER] IV SCH (21:57)
[2019-01-07] MEDS: Acetaminophen 1,000 MG in Premix Bag 1 BAG IVPB PRN ×3 (01:01→17:44)
[2019-01-07 04:07] LABS: ALT (SGPT) 83 U/L (8-55); AST (SGOT) 50 U/L (5-34); Albumin 2.4 g/dL (3.4-4.8); Alkaline Phosphatase 131 U/L (40-150); Anion Gap 12 mmol/L (10-20); BUN (Urea Nitrogen) 12 mg/dL (9.8-20.1); Bilirubin, Total 2.3 mg/dL (0.2-1.2); Calc. Creatinine Clearance 98 mL/min (70-130); Carbon Dioxide 25 mmol/L (23-31); Chloride 100 mmol/L (98-107); Estimated GFR-MDRD Greater than 90; Globulin 3.4 g/dL (2.4-3.5); Glucose 127 mg/dL (80-115); Lipase 14 U/L (8-78); Protein, Total 5.8 g/dL (6.0-8.3); Sodium 134 mmol/L (136-145)
[2019-01-07 04:10] LABS: Potassium 2.7 mmol/L (3.5-5.1)
[2019-01-07 04:12] LABS: #Eosinphils 0.1 thou/uL (0.0-0.7); #Monocytes 0.9 thou/uL (0.11-0.59); #Neutrophils 18.2 thou/uL (1.40-6.50); %Eosinophils 0.5 % (0.0-10.0); %Lymphocytes 4.9 % (21.0-51.0); %Monocytes 4.5 % (0.0-10.0); %Neutrophils 90.1 % (42.0-75.0); Hemoglobin 9.1 g/dL (12.0-16.0); Mean Corpuscular HGB CONC 31.9 g/dL (32.0-36.0); Mean Corpuscular Hemoglobin 28.9 pg (27.0-31.0); Mean Corpuscular Volume 90.6 fL (78.0-98.0); Mean Platelet Volume 8.6 fL (7.4-10.4); Platelet Count 565 thou/uL (130-400); RBC Distribution Width 15.7 % (11.5-14.5); Red Blood Cell (RBC) Count 3.15 mill/uL (4.20-5.40); White Blood Cell (WBC) Count 20.2 thou/uL (4.8-10.8)
[2019-01-07] MEDS: niCARdipine 50 MG in Sodium Chloride 0.9% 250 ML 230 ML IVPB SCH (04:15)
[2019-01-07] MEDS ORDERED: Potassium Chloride 40 MEQ in Premix Bag 1 BAG IVPB SCH (04:30)
[2019-01-07] MEDS: Piperacillin/Tazobactam 3.375 GM in Sodium Chloride 0.9% 100 ML IVPB SCH ×4 (05:08→23:01)
[2019-01-07] MEDS: Octreotide Acetate 100 MCG/ML VIAL SC SCH ×2 (05:08→14:47)
[2019-01-07] MEDS: Linezolid 600 MG in Premix Bag 1 BAG IVPB SCH ×2 (08:51→19:26)
[2019-01-07] MEDS: Insulin Glargine 20 UNITS in Pre-Filled Syringe 1 EACH SC SCH (08:51)
[2019-01-07] MEDS: Amlodipine 5 MG TAB PO SCH (08:52)
[2019-01-07] MEDS: Enoxaparin Sodium 40 MG/0.4 ML SYRINGE SC SCH (08:52)
[2019-01-07] MEDS: Lisinopril 20 MG TAB PO SCH ×2 (08:52→19:26)
[2019-01-07] MEDS: Gabapentin 300 MG CAP PO SCH ×3 (08:53→19:25)
[2019-01-07] MEDS: cloNIDine 0.2 MG TAB PO SCH ×2 (08:53→19:25)
[2019-01-07] MEDS: Pantoprazole 40 MG VIAL IVP SCH ×2 (08:53→19:26)
--- NOTE | 2019-01-07 10:54 | PRG ---
DATE OF SERVICE: 01/07/2019 SUBJECTIVE: This morning, she is better. OBJECTIVE: VITAL SIGNS: Blood pressure is improved at 149/71, pulse 91, saturations 97 on 2L, respiratory rate 21. She is pretty much off the Cardene. CHEST: Decreased breath sounds. No wheezing. CARDIAC: Normal S1 and S2. No gallops. LABORATORY DATA: Potassium 2.7. Lytes are normal. Liver function better. IMPRESSION: 1. Status post respiratory failure, resolved. 2. Encephalopathy, improved. PLAN: Continue PT, supportive care, and nutrition. Hopefully, she can be transferred out of the ICU. Job ID: [id number]
--- NOTE | 2019-01-07 11:25 | PDOC.GSPN ---
Surgery Progress Note: Subj - Subjective Patient reports: no new complaints Surgery Progress Note: Obj - Vital signs Vital signs: Vital Signs - Most Recent Temp Pulse Resp BP Pulse Ox 98.3 F 89 22 H 149/60 H 100 01/07/19 03:00 01/07/19 08:52 01/07/19 08:01 01/07/19 08:53 01/07/19 08:01 - Physical Exam General: no distress Respiratory: coarse breath sounds Abdomen: soft, appropriately tender Wound: healing well (ELEANOR bile) Surgery Progress Note: Results - Labs Result Diagrams: 01/07/19 03:20 01/07/19 03:20 Lab results: Laboratory Results - last 24 hr 01/06/19 01/07/19 01/07/19 22:02 03:20 03:20 WBC 20.2 H RBC 3.15 L Hgb 9.1 L Hct 28.6 L MCV 90.6 MCH 28.9 MCHC 31.9 L RDW 15.7 H Plt Count 565 H MPV 8.6 Neutrophils % 90.1 H Neutrophils % (Manual) Not Reportable Lymphocytes % 4.9 L Monocytes % 4.5 Eosinophils % 0.5 Basophils % 0.0 Neutrophils # 18.2 H Lymphocytes # 1.0 L Monocytes # 0.9 H Eosinophils # 0.1 Basophils # 0.0 Sodium 134 L Potassium 2.7 L* Chloride 100 Carbon Dioxide 25 Anion Gap 12 BUN 12 Creatinine 0.57 L Estimated GFR (MDRD) Greater than 90 Glucose 127 H POC Glucose 129 H Calcium 8.0 Total Bilirubin 2.3 H AST 50 H ALT 83 H Alkaline Phosphatase 131 Serum Total Protein 5.8 L Albumin 2.4 L Globulin 3.4 Albumin/Globulin Ratio 0.7 L Lipase 14 01/07/19 03:23 WBC RBC Hgb Hct MCV MCH MCHC RDW Plt Count MPV Neutrophils % Neutrophils % (Manual) Lymphocytes % Monocytes % Eosinophils % Basophils % Neutrophils # Lymphocytes # Monocytes # Eosinophils # Basophils # Sodium Potassium Chloride Carbon Dioxide Anion Gap BUN Creatinine Estimated GFR (MDRD) Glucose POC Glucose 120 H Calcium Total Bilirubin AST ALT Alkaline Phosphatase Serum Total Protein Albumin Globulin Albumin/Globulin Ratio Lipase Surgery Progress Note: A/P - Problem (1) Perforated duodenal ulcer with hemorrhage Current Visit: Yes Code(s): K26.6 - CHRONIC OR UNSP DUODENAL ULCER W BOTH HEMORRHAGE AND PERF Status: Acute Assessment and Plan: Likely duodenal stump leak -convert drain to low suction -cont tpn, encouraged po intake of clears -cont abx -to floor tomorrow if better able to control drainage -rescan wednesday
[2019-01-07] MEDS: HumaLOG 300 UNITS/3 ML VIAL SC PRN (13:05)
[2019-01-07] MEDS: Fentanyl 100 MCG/2 ML VIAL SLOW IVP PRN ×3 (13:05→23:30)
--- NOTE | 2019-01-07 14:52 | PDOC.PN ---
- Subjective Encounter Start Date: 01/07/19 Encounter Start Time: 14:50 Patient seen and examined, no new issues. - Objective Resuscitation Status - Order Detail: 12/24/18 21:39 Resuscitation Status Routine Resuscitation Status: FULL: Full Resuscitation Vital Signs & Weight: Vital Signs (12 hours) Temp Pulse Pulse Pulse Resp BP BP 01/07/19 12:37 86 21 H 01/07/19 12:00 98 F 01/07/19 11:45 92 88 153/82 H 01/07/19 08:53 149/60 H 01/07/19 08:52 89 162/78 H 01/07/19 08:01 78 22 H 01/07/19 08:00 97.8 F 01/07/19 07:56 01/07/19 03:00 98.3 F BP Pulse Ox Pulse Ox Pulse Ox 01/07/19 12:37 100 01/07/19 12:00 01/07/19 11:45 155/80 H 97 98 01/07/19 08:53 01/07/19 08:52 01/07/19 08:01 100 01/07/19 08:00 01/07/19 07:56 100 01/07/19 03:00 Weight Admit Weight 125 lb 3.2 oz Weight 135 lb 2.294 oz Most Recent Monitor Data Heart Rate from ECG 87 NIBP 162/84 NIBP BP-Mean 110 Respiration from ECG 22 SpO2 99 I&O: 01/06/19 01/07/19 01/08/19 06:59 06:59 06:59 Intake Total 3871 2205 300 Output Total 3840 5495 730 Balance 31 -3290 -430 Result Diagrams: 01/07/19 03:20 01/07/19 03:20 Additional Labs: Accuchecks 01/07/19 01/07/19 01/06/19 13:00 03:23 22:02 POC Glucose 329 H 120 H 129 H 01/06/19 17:28 POC Glucose 99 Phys Exam - Physical Examination Constitutional: NAD HEENT: PERRLA, moist MMs, sclera anicteric Neck: no nodes, no JVD, supple Respiratory: no wheezing, no rales, no rhonchi Cardiovascular: RRR, no significant murmur, no rub Gastrointestinal: soft, non-tender, no distention Musculoskeletal: no edema, pulses present Dx/Plan (1) Anemia due to acute blood loss Code(s): D62 - ACUTE POSTHEMORRHAGIC ANEMIA Status: Acute Comment: s/p total 5 unit PRBC (2) Hypertensive urgency Code(s): I16.0 - HYPERTENSIVE URGENCY Status: Acute (3) Transaminitis Code(s): R74.0 - NONSPEC ELEV OF LEVELS OF TRANSAMNS & LACTIC ACID DEHYDRGNSE Status: Acute (4) Diabetes type 2, controlled Code(s): E11.9 - TYPE 2 DIABETES MELLITUS WITHOUT COMPLICATIONS Status: Chronic (5) Dyslipidemia Code(s): E78.5 - HYPERLIPIDEMIA, UNSPECIFIED Status: Chronic (6) HTN (hypertension) Code(s): I10 - ESSENTIAL (PRIMARY) HYPERTENSION Status: Chronic Qualifiers: Comment: labile control (7) Neuropathic pain Status: Chronic (8) Obesity (BMI 30.0-34.9) Code(s): E66.9 - OBESITY, UNSPECIFIED Status: Chronic - Plan * repeat scan on wednesday * potassium being replaced * cont current plan of care, ok to transfer to floor once cleared by sx * case and plan d/w patient and daughter at length, they understood and agreed with this plan.
[2019-01-07] MEDS: [UNRECOGNIZED DRUG - OTHER] IV SCH (21:49)
[2019-01-07] MEDS: SODIUM ACETATE IV SCH (21:49)
[2019-01-07] MEDS: FAT EMULSIONS IV SCH (21:49)
[2019-01-07] MEDS: SODIUM CHLORIDE IV SCH (21:49)
[2019-01-08] MEDS: Acetaminophen 1,000 MG in Premix Bag 1 BAG IVPB PRN ×4 (00:08→20:52)
[2019-01-08 03:31] LABS: #Eosinphils 0.1 thou/uL (0.0-0.7); #Lymphocytes 0.8 thou/uL (1.20-3.40); #Monocytes 0.7 thou/uL (0.11-0.59); #Neutrophils 15.1 thou/uL (1.40-6.50); %Basophils 0.2 % (0.0-1.0); %Eosinophils 0.9 % (0.0-10.0); %Lymphocytes 4.8 % (21.0-51.0); %Monocytes 4.1 % (0.0-10.0); %Neutrophils 90.1 % (42.0-75.0); Hemoglobin 8.3 g/dL (12.0-16.0); Mean Corpuscular HGB CONC 31.6 g/dL (32.0-36.0); Mean Corpuscular Hemoglobin 28.7 pg (27.0-31.0); Mean Corpuscular Volume 90.6 fL (78.0-98.0); Mean Platelet Volume 8.2 fL (7.4-10.4); Platelet Count 581 thou/uL (130-400); RBC Distribution Width 15.7 % (11.5-14.5); White Blood Cell (WBC) Count 16.8 thou/uL (4.8-10.8)
[2019-01-08 03:49] LABS: Anion Gap 10 mmol/L (10-20); BUN (Urea Nitrogen) 14 mg/dL (9.8-20.1); Calc. Creatinine Clearance 90 mL/min (70-130); Calcium 8.3 mg/dL (7.8-10.44); Carbon Dioxide 26 mmol/L (23-31); Chloride 102 mmol/L (98-107); Estimated GFR-MDRD Greater than 90; Glucose 208 mg/dL (80-115); Potassium 3.6 mmol/L (3.5-5.1); Sodium 134 mmol/L (136-145)
[2019-01-08] MEDS: HumaLOG 300 UNITS/3 ML VIAL SC PRN ×2 (03:56→11:26)
[2019-01-08] MEDS: Piperacillin/Tazobactam 3.375 GM in Sodium Chloride 0.9% 100 ML IVPB SCH ×4 (05:22→23:37)
[2019-01-08] MEDS: Fentanyl 100 MCG/2 ML VIAL SLOW IVP PRN ×2 (05:43→13:25)
[2019-01-08] MEDS: Enoxaparin Sodium 40 MG/0.4 ML SYRINGE SC SCH (09:57)
[2019-01-08] MEDS: Amlodipine 5 MG TAB PO SCH (09:57)
[2019-01-08] MEDS: Pantoprazole 40 MG VIAL IVP SCH ×2 (09:58→20:54)
[2019-01-08] MEDS: Lisinopril 20 MG TAB PO SCH ×2 (09:58→20:53)
[2019-01-08] MEDS: Linezolid 600 MG in Premix Bag 1 BAG IVPB SCH ×2 (09:58→20:53)
[2019-01-08] MEDS: Gabapentin 300 MG CAP PO SCH ×3 (09:58→20:54)
[2019-01-08] MEDS: cloNIDine 0.2 MG TAB PO SCH ×2 (09:58→20:52)
[2019-01-08] MEDS: Insulin Glargine 20 UNITS in Pre-Filled Syringe 1 EACH SC SCH (10:01)
--- NOTE | 2019-01-08 10:07 | PRG ---
DATE OF SERVICE: SUBJECTIVE: Maisha Qureshi, this morning, is still complaining of abdominal pain, but no longer nauseated, less short of breath. OBJECTIVE: VITAL SIGNS: Sats are 98% on room air, respiratory rate 16, pulse 85, and blood pressure 151/70. CHEST: Decreased breath sounds. No wheezing. CARDIAC: Normal S1, S2. LABORATORY DATA: Lytes are normal. White count is dropped to 16,000, H and H 8 and 23, platelet count . ASSESSMENT: 1. Status post lap. 2. Hypertension. 3. Perforated duodenal ulcer. 4. Gram-positive Staph, methicillin-resistant Staphylococcus aureus, tracheobronchitis, pneumonia, improved. PLAN: Once she is able to swallow better, we will switch the Zyvox to p.o. Blood pressure is much controlled. She can probably transferred to the surgical floor. Pulmonary followup. Job ID: [id number]
[2019-01-08] MEDS: fentaNYL 75 mcg/hour Patch TD SCH (10:28)
--- NOTE | 2019-01-08 10:44 | PRG ---
DATE OF SERVICE: 01/08/2019 SUBJECTIVE: Ms. Qureshi is up in the recliner at the bedside complaining of soreness and bloating. She is drinking some juice, but anything more makes her feel bloated she states. She is still having pain at her drain site. She is off the Cardene. OBJECTIVE: VITAL SIGNS: Pulse is 85, blood pressure 158/70. Urine is 3125, ELEANOR drain was 680 for the day yesterday. ABDOMEN: Soft, minimally distended, but less tender on exam. There is no infection. LABORATORY DATA: White blood cell count of 16, hemoglobin 8.3, and platelet count is 581. Sodium 134, potassium 3.6, creatinine 0.62, and glucose is 208. 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 PLAN: Continue drainage, TPN, plus or minus clear liquids. Her bilirubin is trending down. We will recheck her LFTs tomorrow. My plan would be repeat CT scan on Wednesday. She is going to be moved to the surgery floor today. Job ID: [id number]
[2019-01-08] MEDS: cloNIDine 0.1 MG TAB PO PRN (13:29)
--- NOTE | 2019-01-08 14:10 | PDOC.PN ---
- Subjective Encounter Start Date: 01/08/19 Encounter Start Time: 14:09 Patient seen and examined. - Objective Resuscitation Status - Order Detail: 12/24/18 21:39 Resuscitation Status Routine Resuscitation Status: FULL: Full Resuscitation Vital Signs & Weight: Vital Signs (12 hours) Temp Pulse Resp BP Pulse Ox 01/08/19 13:29 188/71 H 01/08/19 09:58 158/74 H 01/08/19 09:57 85 158/74 H 01/08/19 08:00 98.6 F 97 01/08/19 07:32 85 16 98 01/08/19 03:00 98.8 F Weight Admit Weight 125 lb 3.2 oz Weight 133 lb 2.547 oz Most Recent Monitor Data Heart Rate from ECG 95 NIBP 145/84 NIBP BP-Mean 104 Respiration from ECG 29 SpO2 99 I&O: 01/07/19 01/08/19 01/09/19 06:59 06:59 06:59 Intake Total 2206 2773 732 Output Total 5255 3925 950 [facility] -3290 -1152 -218 Result Diagrams: 01/08/19 03:16 01/08/19 03:16 Additional Labs: Accuchecks 01/08/19 01/07/19 01/07/19 11:14 20:37 17:10 POC Glucose 277 H 131 H 128 H Phys Exam - Physical Examination Constitutional: NAD HEENT: PERRLA, moist MMs, sclera anicteric Neck: no nodes, no JVD, supple Respiratory: no wheezing, no rales, no rhonchi Cardiovascular: RRR, no significant murmur, no rub Gastrointestinal: soft, non-tender, no distention, positive bowel sounds Dx/Plan (1) Anemia due to acute blood loss Code(s): D62 - ACUTE POSTHEMORRHAGIC ANEMIA Status: Acute Comment: s/p total 5 unit PRBC (2) Hypertensive urgency Code(s): I16.0 - HYPERTENSIVE URGENCY Status: Acute (3) Transaminitis Code(s): R74.0 - NONSPEC ELEV OF LEVELS OF TRANSAMNS & LACTIC ACID DEHYDRGNSE Status: Acute (4) Diabetes type 2, controlled Code(s): E11.9 - TYPE 2 DIABETES MELLITUS WITHOUT COMPLICATIONS Status: Chronic (5) Dyslipidemia Code(s): E78.5 - HYPERLIPIDEMIA, UNSPECIFIED Status: Chronic (6) HTN (hypertension) Code(s): I10 - ESSENTIAL (PRIMARY) HYPERTENSION Status: Chronic Qualifiers: Comment: labile control (7) Neuropathic pain Status: Chronic (8) Obesity (BMI 30.0-34.9) Code(s): E66.9 - OBESITY, UNSPECIFIED Status: Chronic - Plan * cont current plan of care * labs stable * vitals stable * rescan next week * sx following
[2019-01-08] MEDS: hydrALAZINE 20 MG/ML VIAL SLOW IVP PRN (14:56)
--- NOTE | 2019-01-08 15:44 | RAD ---
Exam: Chest one view HISTORY:Pain Comparison: 01/05/2019 FINDINGS: Lungs: Patchy bibasilar densities. Elevation of right hemidiaphragm. Cardiac silhouette:Enlarged Pulmonary vessels: Engorged Pleural Spaces: Bilateral pleural fluid Pneumothorax: None Osseous abnormalities: None of acuity. IMPRESSION: Findings which favor fluid overload. Correlate for evidence of CHF. Follow-up to resolution is recommended.
[2019-01-08] MEDS ORDERED: Sterile Water 10 ML VIAL IVP SCH (18:30)
[2019-01-08] MEDS ORDERED: Activase 2 MG VIAL CATH SCH (18:30)
[2019-01-08] MEDS: SODIUM ACETATE IV SCH (22:02)
[2019-01-08] MEDS: [UNRECOGNIZED DRUG - OTHER] IV SCH (22:02)
[2019-01-08] MEDS: SODIUM CHLORIDE IV SCH (22:02)
[2019-01-08] MEDS: FAT EMULSIONS IV SCH (22:02)
[2019-01-08 23:40] LABS: Troponin I Less than 0.010 ng/mL (< 0.028)
[2019-01-09] MEDS: Labetalol HCl 100 MG/20 ML VIAL SLOW IVP PRN ×3 (01:57→21:19)
[2019-01-09] MEDS: Fentanyl 100 MCG/2 ML VIAL SLOW IVP PRN ×2 (02:01→11:43)
[2019-01-09] MEDS: Acetaminophen 1,000 MG in Premix Bag 1 BAG IVPB PRN ×3 (04:04→21:17)
[2019-01-09] MEDS: Piperacillin/Tazobactam 3.375 GM in Sodium Chloride 0.9% 100 ML IVPB SCH ×4 (05:14→23:04)
[2019-01-09] MEDS: HumaLOG 300 UNITS/3 ML VIAL SC PRN ×3 (06:08→23:18)
[2019-01-09 08:15] LABS: Troponin I Less than 0.010 ng/mL (< 0.028)
--- NOTE | 2019-01-09 08:30 | PDOC.PN ---
- Subjective Encounter Start Date: 01/09/19 Encounter Start Time: 11:20 Subjective: Patient with some abdominal pain. No vomiting. No fever. - Objective Resuscitation Status - Order Detail: 12/24/18 21:39 Resuscitation Status Routine Resuscitation Status: FULL: Full Resuscitation MAR Reviewed: Yes Vital Signs & Weight: Vital Signs (12 hours) Temp Pulse Resp BP BP Pulse Ox 01/09/19 07:40 98.5 F 88 16 185/79 H 96 01/09/19 06:40 104 H 20 93 L 01/09/19 03:03 98.8 F 76 18 156/66 H 95 01/09/19 01:57 101 H 182/70 H 01/09/19 00:53 97 01/09/19 00:06 20 01/09/19 00:00 98.8 F 97 16 185/76 H 98 01/08/19 20:53 179/73 H 01/08/19 20:52 179/73 H Weight Admit Weight 125 lb 3.2 oz Weight 146 lb 4.8 oz Most Recent Monitor Data Heart Rate from ECG 95 NIBP 145/84 NIBP BP-Mean 104 Respiration from ECG 29 SpO2 99 I&O: 01/08/19 01/09/19 01/10/19 06:59 06:59 06:59 Intake Total 2773 1132 Output Total 3925 2720 Balance -5162 -7082 Result Diagrams: 01/08/19 03:16 01/08/19 03:16 Additional Labs: Accuchecks 01/09/19 01/08/19 01/08/19 05:46 21:39 16:06 POC Glucose 193 H 116 H 88 01/08/19 11:14 POC Glucose 277 H Phys Exam - Physical Examination Constitutional: NAD HEENT: moist MMs Respiratory: no wheezing, no rales, no rhonchi Cardiovascular: RRR Gastrointestinal: soft diffuse TTP, decreased bowel sounds Neurological: non-focal Psychiatric: normal affect, A&O x 3 Dx/Plan (1) Pneumonia Code(s): J18.9 - PNEUMONIA, UNSPECIFIED ORGANISM Status: Acute Qualifiers: Pneumonia type: due to methicillin-resistant Staphylococcus aureus (MRSA) Comment: including tracheobronchitis, on Linezolid and Zosyn since 01/04/2019, Dr. De Oliveira following (2) Duodenal ulcer, perforated Code(s): K26.5 - CHRONIC OR UNSPECIFIED DUODENAL ULCER WITH PERFORATION Status : Acute Comment: s/p antrectomy, with duodenal stump leak postop, Dr. Morgan following (3) Anemia due to acute blood loss Code(s): D62 - ACUTE POSTHEMORRHAGIC ANEMIA Status: Acute Comment: s/p total 5 unit PRBC (4) Hypertensive urgency Code(s): I16.0 - HYPERTENSIVE URGENCY Status: Acute Comment: improved (5) Transaminitis Code(s): R74.0 - NONSPEC ELEV OF LEVELS OF TRANSAMNS & LACTIC ACID DEHYDRGNSE Status: Acute (6) Diabetes type 2, controlled Code(s): E11.9 - TYPE 2 DIABETES MELLITUS WITHOUT COMPLICATIONS Status: Chronic (7) Dyslipidemia Code(s): E78.5 - HYPERLIPIDEMIA, UNSPECIFIED Status: Chronic (8) HTN (hypertension) Code(s): I10 - ESSENTIAL (PRIMARY) HYPERTENSION Status: Chronic Qualifiers: Comment: labile control (9) Neuropathic pain Status: Chronic (10) Obesity (BMI 30.0-34.9) Code(s): E66.9 - OBESITY, UNSPECIFIED Status: Chronic (11) Restless leg syndrome Status: Chronic - Plan cont current plan of care, continue antibiotics, PT/OT Plan for CT abdomen tomorrow * . - Discharge Day Encounter end time: 11:30
--- NOTE | 2019-01-09 08:40 | PDOC.GSPN ---
Surgery Progress Note: Subj - Subjective Patient reports: no new complaints Surgery Progress Note: Obj - Vital signs Vital signs: Vital Signs - Most Recent Temp Pulse Resp BP Pulse Ox 98.5 F 88 16 185/79 H 96 01/09/19 07:40 01/09/19 07:40 01/09/19 07:40 01/09/19 07:40 01/09/19 07:40 - Physical Exam General: no distress Respiratory: clear to auscultation Abdomen: soft, appropriately tender Wound: healing well (ELEANOR bilious) Surgery Progress Note: Results - Labs Result Diagrams: 01/08/19 03:16 01/08/19 03:16 Lab results: Laboratory Results - last 24 hr 01/08/19 01/08/19 01/09/19 21:39 23:05 05:46 POC Glucose 116 H 193 H Troponin I Less than 0.010 01/09/19 07:30 POC Glucose Troponin I Less than 0.010 Surgery Progress Note: A/P - Problem (1) Perforated duodenal ulcer with hemorrhage Current Visit: Yes Code(s): K26.6 - CHRONIC OR UNSP DUODENAL ULCER W BOTH HEMORRHAGE AND PERF Status: Acute Assessment and Plan: s/p antrectomy, loop gastro-j -complicated by bile leak, ?duodenal stump leak - Plan Plan: Plan add norco to help with pain control, avoiding IV narcotics, has fentanyl patch -CT tomorrow
[2019-01-09] MEDS: Insulin Glargine 20 UNITS in Pre-Filled Syringe 1 EACH SC SCH (08:55)
[2019-01-09] MEDS: Pantoprazole 40 MG VIAL IVP SCH ×2 (08:55→21:21)
[2019-01-09] MEDS: HYDROcodone/Acetaminophen 10/325 mg Tablet PO PRN ×2 (08:56→16:16)
[2019-01-09] MEDS: Gabapentin 300 MG CAP PO SCH ×3 (08:56→21:17)
[2019-01-09] MEDS: cloNIDine 0.2 MG TAB PO SCH ×2 (08:56→21:20)
[2019-01-09] MEDS: Lisinopril 20 MG TAB PO SCH ×2 (08:56→21:18)
[2019-01-09] MEDS: Amlodipine 10 MG TAB PO SCH (08:56)
[2019-01-09] MEDS: Linezolid 600 MG in Premix Bag 1 BAG IVPB SCH (09:06)
--- NOTE | 2019-01-09 09:22 | PRG ---
DATE OF SERVICE: 01/09/2019 SUBJECTIVE: Maisha Qureshi has swelling and pain at the ostomy site. OBJECTIVE: VITAL SIGNS: Saturations are 96% on 2 L, respirations 16, temperature 98, pulse 88, and blood pressure is 185/79, multiple medication. CHEST: Decreased breath sounds. No wheezing. CARDIAC: Normal S1 and S2. No gallops. ABDOMEN: No masses. IMPRESSION: 1. Hypertension. 2. Respiratory failure. 3. Status post lap. 4. Chronic pain. PLAN: At this stage, continue PT, supportive care. Hopefully that can be advanced. We will follow. Job ID: [id number]
[2019-01-09] MEDS: Linezolid 600 MG TAB PO SCH ×2 (09:35→21:19)
[2019-01-09] MEDS: Enoxaparin Sodium 40 MG/0.4 ML SYRINGE SC SCH (09:36)
[2019-01-09] MEDS: [UNRECOGNIZED DRUG - OTHER] IV SCH (22:11)
[2019-01-09] MEDS: SODIUM ACETATE IV SCH (22:11)
[2019-01-09] MEDS: SODIUM CHLORIDE IV SCH (22:11)
[2019-01-09] MEDS: FAT EMULSIONS IV SCH (22:11)
[2019-01-10 03:35] LABS: #Eosinphils 0.1 thou/uL (0.0-0.7); #Lymphocytes 0.7 thou/uL (1.20-3.40); #Monocytes 0.6 thou/uL (0.11-0.59); #Neutrophils 10.8 thou/uL (1.40-6.50); %Basophils 0.2 % (0.0-1.0); %Eosinophils 0.8 % (0.0-10.0); %Lymphocytes 5.9 % (21.0-51.0); %Monocytes 4.8 % (0.0-10.0); %Neutrophils 88.3 % (42.0-75.0); Mean Corpuscular Hemoglobin 29.5 pg (27.0-31.0); Mean Corpuscular Volume 89.2 fL (78.0-98.0); Mean Platelet Volume 7.6 fL (7.4-10.4); Platelet Count 680 thou/uL (130-400); RBC Distribution Width 15.4 % (11.5-14.5); Red Blood Cell (RBC) Count 3.06 mill/uL (4.20-5.40); White Blood Cell (WBC) Count 12.3 thou/uL (4.8-10.8)
[2019-01-10 04:29] LABS: ALT (SGPT) 51 U/L (8-55); AST (SGOT) 32 U/L (5-34); Albumin 2.5 g/dL (3.4-4.8); Alkaline Phosphatase 145 U/L (40-150); Anion Gap 12 mmol/L (10-20); BUN (Urea Nitrogen) 16 mg/dL (9.8-20.1); Bilirubin, Total 1.7 mg/dL (0.2-1.2); Calc. Creatinine Clearance 97 mL/min (70-130); Calcium 8.5 mg/dL (7.8-10.44); Carbon Dioxide 24 mmol/L (23-31); Chloride 102 mmol/L (98-107); Estimated GFR-MDRD Greater than 90; Glucose 130 mg/dL (80-115); Protein, Total 6.5 g/dL (6.0-8.3); Sodium 135 mmol/L (136-145)
[2019-01-10 04:34] LABS: Potassium 2.8 mmol/L (3.5-5.1)
[2019-01-10] MEDS: Piperacillin/Tazobactam 3.375 GM in Sodium Chloride 0.9% 100 ML IVPB SCH ×4 (05:05→22:40)
[2019-01-10] MEDS: Potassium Chloride 20 MEQ TAB PO SCH ×2 (05:05→11:51)
[2019-01-10] MEDS: Labetalol HCl 100 MG/20 ML VIAL SLOW IVP PRN (05:05)
[2019-01-10] MEDS: HumaLOG 300 UNITS/3 ML VIAL SC PRN ×2 (05:41→11:51)
[2019-01-10] MEDS: Acetaminophen 1,000 MG in Premix Bag 1 BAG IVPB PRN ×3 (05:41→20:26)
--- NOTE | 2019-01-10 08:13 | PDOC.PN ---
- Subjective Encounter Start Date: 01/10/19 Encounter Start Time: 10:00 Subjective: Patient without significant pain currently. No nausea/vomiting. No fever. -: No SOB. - Objective Resuscitation Status - Order Detail: 12/24/18 21:39 Resuscitation Status Routine Resuscitation Status: FULL: Full Resuscitation MAR Reviewed: Yes Vital Signs & Weight: Vital Signs (12 hours) Temp Pulse Resp BP BP BP Pulse Ox 01/10/19 06:14 85 16 94 L 01/10/19 05:05 103 H 197/80 H 01/10/19 04:00 99.5 F 104 H 18 191/71 H 93 L 01/10/19 02:33 97 01/10/19 00:00 98.7 F 80 16 156/69 H 94 L 01/09/19 23:39 16 01/09/19 22:33 156/68 H 01/09/19 21:20 190/88 H 01/09/19 21:19 114 H 190/88 H 01/09/19 21:18 190/88 H Weight Admit Weight 125 lb 3.2 oz Weight 131 lb 9.6 oz Most Recent Monitor Data Heart Rate from ECG 95 NIBP 145/84 NIBP BP-Mean 104 Respiration from ECG 29 SpO2 99 I&O: 01/09/19 01/10/19 01/11/19 06:59 06:59 06:59 Intake Total 1132 940 Output Total 2720 1750 Balance -1588 -810 Result Diagrams: 01/10/19 03:23 01/10/19 03:23 Additional Labs: Accuchecks 01/10/19 01/09/19 01/09/19 05:37 23:11 18:24 POC Glucose 177 H 234 H 156 H 01/09/19 12:03 POC Glucose 243 H Phys Exam - Physical Examination Constitutional: NAD HEENT: moist MMs Respiratory: no wheezing, no rales, no rhonchi Cardiovascular: RRR, no significant murmur diffuse TTP, hypoactive bowel sounds, mild distention Musculoskeletal: no edema Neurological: non-focal, moves all 4 limbs Psychiatric: normal affect, A&O x 3 Dx/Plan (1) Pneumonia Code(s): J18.9 - PNEUMONIA, UNSPECIFIED ORGANISM Status: Acute Qualifiers: Pneumonia type: due to methicillin-resistant Staphylococcus aureus (MRSA) Comment: including tracheobronchitis, on Linezolid and Zosyn since 01/04/2019, Dr. De Oliveira following (2) Duodenal ulcer, perforated Code(s): K26.5 - CHRONIC OR UNSPECIFIED DUODENAL ULCER WITH PERFORATION Status : Acute Comment: s/p antrectomy, with duodenal stump leak postop, Dr. Morgan following, CT with persistent leak 01/10/19, plan for CT guided percutaneous drain placement (3) Anemia due to acute blood loss Code(s): D62 - ACUTE POSTHEMORRHAGIC ANEMIA Status: Acute Comment: s/p total 5 unit PRBC (4) Hypertensive urgency Code(s): I16.0 - HYPERTENSIVE URGENCY Status: Acute Comment: improved (5) Transaminitis Code(s): R74.0 - NONSPEC ELEV OF LEVELS OF TRANSAMNS & LACTIC ACID DEHYDRGNSE Status: Acute (6) Diabetes type 2, controlled Code(s): E11.9 - TYPE 2 DIABETES MELLITUS WITHOUT COMPLICATIONS Status: Chronic (7) Dyslipidemia Code(s): E78.5 - HYPERLIPIDEMIA, UNSPECIFIED Status: Chronic (8) HTN (hypertension) Code(s): I10 - ESSENTIAL (PRIMARY) HYPERTENSION Status: Chronic Qualifiers: Comment: labile control (9) Neuropathic pain Status: Chronic (10) Obesity (BMI 30.0-34.9) Code(s): E66.9 - OBESITY, UNSPECIFIED Status: Chronic (11) Restless leg syndrome Status: Chronic - Plan cont current plan of care, continue antibiotics, PT/OT plan for percutaneous drain placement * . - Discharge Day Encounter end time: 10:10
--- NOTE | 2019-01-10 09:01 | CT ---
CT Abdomen Pelvis W Con History: [Duodenal stump leak after antrectomy.] Comparison: CT abdomen and pelvis January 02, 2019 Findings: Moderate layering right pleural effusion with atelectatic changes at both lung bases. No pe ricardial effusion. Moderate right perihepatic fluid collection with abnormal enhancement pneumoperitoneum. There is scal loping upon the liver indicating some mass effect. There is an abnormal peripherally enhancing collection adjacent to the pancreatic head. There is free air within this collection which is increas ed from the comparison examination. There is an indwelling drain in good position. There is suture at the level of the junction of the second/third portion of the duodenum. Prior gastr ic antrectomy with Gastrografin jejunostomy. No hydronephrosis. The aortoiliac contour is nonaneurysmal. No retroperitoneal adenopathy. Nonobstructing 2 mm calculus lower right renal collecting system and a 2 mm calculus left lower pole collecting system. Spleen is unremarkable. No evidence of bowel obstruction. Indwelling Barnard catheter. Portal vein is p atent. No acute osseous abnormality. Impression: 1. Enlarging fluid collection around the duodenal stump with peripheral enhancement gas indicating du odenal stump perforation. There is a indwelling drain in good position. 2. Slightly enlarging perihepatic collection likely communicating with the stump leak with some scall oping of the liver as well as peripheral peritoneal enhancement.
[2019-01-10] MEDS: Gabapentin 300 MG CAP PO SCH ×3 (09:28→20:27)
[2019-01-10] MEDS: Lisinopril 20 MG TAB PO SCH ×2 (09:28→20:27)
[2019-01-10] MEDS: Pantoprazole 40 MG VIAL IVP SCH ×2 (09:28→20:27)
[2019-01-10] MEDS: Insulin Glargine 20 UNITS in Pre-Filled Syringe 1 EACH SC SCH (09:28)
[2019-01-10] MEDS: Enoxaparin Sodium 40 MG/0.4 ML SYRINGE SC SCH (09:28)
[2019-01-10] MEDS: cloNIDine 0.2 MG TAB PO SCH ×2 (09:28→20:28)
[2019-01-10] MEDS: Amlodipine 10 MG TAB PO SCH (09:29)
[2019-01-10] MEDS: Linezolid 600 MG TAB PO SCH ×2 (09:29→20:28)
[2019-01-10] MEDS: Fentanyl 100 MCG/2 ML VIAL SLOW IVP PRN (09:34)
--- NOTE | 2019-01-10 12:08 | PDOC.GSPN ---
Surgery Progress Note: Subj - Subjective Patient reports: no new complaints (Pain well controlled on IV tylenol) Surgery Progress Note: Obj - Vital signs Vital signs: Vital Signs - Most Recent Temp Pulse Resp BP Pulse Ox 99.8 F H 88 16 165/79 H 97 01/10/19 11:38 01/10/19 11:38 01/10/19 11:38 01/10/19 11:38 01/10/19 11:38 - Physical Exam General: no distress Respiratory: clear to auscultation Abdomen: soft, appropriately tender Wound: healing well (ELEANOR dutta) Surgery Progress Note: Results - Labs Result Diagrams: 01/10/19 03:23 01/10/19 03:23 Lab results: Laboratory Results - last 24 hr 01/10/19 01/10/19 01/10/19 03:23 03:23 05:37 WBC 12.3 H RBC 3.06 L Hgb 9.0 L Hct 27.3 L MCV 89.2 MCH 29.5 MCHC 33.0 RDW 15.4 H Plt Count 680 H MPV 7.6 Neutrophils % 88.3 H Lymphocytes % 5.9 L Monocytes % 4.8 Eosinophils % 0.8 Basophils % 0.2 Neutrophils # 10.8 H Lymphocytes # 0.7 L Monocytes # 0.6 H Eosinophils # 0.1 Basophils # 0.0 Sodium 135 L Potassium 2.8 L* Chloride 102 Carbon Dioxide 24 Anion Gap 12 BUN 16 Creatinine 0.62 Estimated GFR (MDRD) Greater than 90 Glucose 130 H POC Glucose 177 H Calcium 8.5 Total Bilirubin 1.7 H AST 32 ALT 51 Alkaline Phosphatase 145 Serum Total Protein 6.5 Albumin 2.5 L Globulin 4.0 H Albumin/Globulin Ratio 0.6 L 01/10/19 11:47 WBC RBC Hgb Hct MCV MCH MCHC RDW Plt Count MPV Neutrophils % Lymphocytes % Monocytes % Eosinophils % Basophils % Neutrophils # Lymphocytes # Monocytes # Eosinophils # Basophils # Sodium Potassium Chloride Carbon Dioxide Anion Gap BUN Creatinine Estimated GFR (MDRD) Glucose POC Glucose 241 H Calcium Total Bilirubin AST ALT Alkaline Phosphatase Serum Total Protein Albumin Globulin Albumin/Globulin Ratio Surgery Progress Note: A/P - Problem (1) Perforated duodenal ulcer with hemorrhage Current Visit: Yes Code(s): K26.6 - CHRONIC OR UNSP DUODENAL ULCER W BOTH HEMORRHAGE AND PERF Status: Acute - Plan Plan: CT shows persistent retained fluid over liver -CT guided perc drain placement -LFT's trending down
--- NOTE | 2019-01-10 12:13 | PRG ---
DATE OF SERVICE: 01/10/2019 SUBJECTIVE: The patient is still having significant abdominal pain. She had a CT done of the abdomen. OBJECTIVE: VITAL SIGNS: Temperature 99, pulse 95, respiratory rate 18, saturations 96% pn room air, and blood pressure 166/72. CHEST: Decreased breath sounds. Anterior rhonchi. CARDIAC: Normal S1 and S2. No gallops. ABDOMEN: No mass. ASSESSMENT: Methicillin-resistant Staphylococcus aureus tracheobronchitis, status post lap, severe deconditioning; ongoing marked weakness. PLAN: PO Zyvox, still on _mefoxin iv as per General surgery. Continue PT, supportive care, eventually placement. Job ID: [id number] [facility]
[2019-01-10] MEDS: Ketorolac Tromethamine 30 MG/ML VIAL IVP PRN ×2 (14:05→22:52)
--- NOTE | 2019-01-10 17:24 | EKG ---
Test Reason : STAT Blood Pressure : / mmHG Vent. Rate : 141 BPM Atrial Rate : 141 BPM P-R Int : 112 ms QRS Dur : 064 ms QT Int : 262 ms P-R-T Axes : 023 -21 016 degrees QTc Int : 401 ms Sinus tachycardia Moderate voltage criteria for LVH, may be normal variant Borderline ECG When compared with ECG of 27-DEC-2018 13:46, Questionable change in QRS duration Confirmed by MONICA WRIGHT (2) on 01/10/2019 5:24:18 PM Referred By: ROBERT Confirmed By:MONICA WRIGHT
[2019-01-10] MEDS: hydrALAZINE 20 MG/ML VIAL SLOW IVP PRN (20:28)
[2019-01-10] MEDS: SODIUM ACETATE IV SCH (22:40)
[2019-01-10] MEDS: [UNRECOGNIZED DRUG - OTHER] IV SCH (22:40)
[2019-01-10] MEDS: FAT EMULSIONS IV SCH (22:40)
[2019-01-10] MEDS: SODIUM CHLORIDE IV SCH (22:40)
[2019-01-11] MEDS: Acetaminophen 1,000 MG in Premix Bag 1 BAG IVPB PRN ×4 (02:28→20:55)
[2019-01-11] MEDS: diphenhydrAMINE 25 MG CAP PO PRN (05:53)
[2019-01-11] MEDS: Piperacillin/Tazobactam 3.375 GM in Sodium Chloride 0.9% 100 ML IVPB SCH ×4 (05:53→23:46)
[2019-01-11] MEDS: HumaLOG 300 UNITS/3 ML VIAL SC PRN ×3 (06:02→22:11)
[2019-01-11] MEDS: Ketorolac Tromethamine 30 MG/ML VIAL IVP PRN ×2 (06:56→15:26)
[2019-01-11] MEDS: Enoxaparin Sodium 40 MG/0.4 ML SYRINGE SC SCH (07:35)
--- NOTE | 2019-01-11 08:01 | PDOC.GSPN ---
Surgery Progress Note: Subj - Subjective Narrative: Complaining of pain, no nausea, still not taking much po Surgery Progress Note: Obj - Vital signs Vital signs: Vital Signs - Most Recent Temp Pulse Resp BP Pulse Ox 98.7 F 88 14 195/77 H 93 L 01/11/19 07:46 01/11/19 07:46 01/11/19 07:46 01/11/19 07:46 01/11/19 07:46 - Physical Exam General: no distress Respiratory: clear to auscultation Abdomen: soft, nondistended, appropriately tender Wound: healing well Surgery Progress Note: Results - Labs Result Diagrams: 01/10/19 03:23 01/10/19 03:23 Lab results: Laboratory Results - last 24 hr 01/10/19 01/11/19 22:00 03:43 POC Glucose 163 H 245 H Surgery Progress Note: A/P - Problem (1) Perforated duodenal ulcer with hemorrhage Current Visit: Yes Code(s): K26.6 - CHRONIC OR UNSP DUODENAL ULCER W BOTH HEMORRHAGE AND PERF Status: Acute - Plan Plan: CT guided drain today to better drain lateral fluid collection -advance to full liquids -Will place dophoff via EGD thru afferent limb for tube feeds if doesn't start taking more po, need to get her off tpn. -LTAC placement
--- NOTE | 2019-01-11 08:33 | PDOC.PN ---
- Subjective Encounter Start Date: 01/11/19 Encounter Start Time: 13:00 Subjective: Patient with new drain placed today under CT guidance, small bloody -: return, concern for possibly hematoma not able to drain through cath. -: Patient with some increased abdominal pain after drain. No other complaint. - Objective Resuscitation Status - Order Detail: 12/24/18 21:39 Resuscitation Status Routine Resuscitation Status: FULL: Full Resuscitation MAR Reviewed: Yes Vital Signs & Weight: Vital Signs (12 hours) Temp Pulse Resp BP BP Pulse Ox 01/11/19 07:46 98.7 F 88 14 195/77 H 93 L 01/11/19 04:57 98.5 F 93 16 158/66 H 96 01/11/19 02:12 99 01/11/19 00:21 22 H 01/11/19 00:12 99.2 F 102 H 16 134/68 95 Weight Admit Weight 125 lb 3.2 oz Weight 128 lb 9.6 oz Most Recent Monitor Data Heart Rate from ECG 95 NIBP 145/84 NIBP BP-Mean 104 Respiration from ECG 29 SpO2 99 I&O: 01/10/19 01/11/19 01/12/19 06:59 06:59 06:59 Intake Total 940 1040 Output Total 1750 1525 Balance -810 -485 Result Diagrams: 01/10/19 03:23 01/11/19 08:32 Additional Labs: Accuchecks 01/11/19 01/10/19 01/10/19 03:43 22:00 17:58 POC Glucose 245 H 163 H 113 H 01/10/19 11:47 POC Glucose 241 H Phys Exam - Physical Examination moderate distress from pain, nurse giving Toradol HEENT: moist MMs Respiratory: no wheezing, no rales, no rhonchi Cardiovascular: RRR, no significant murmur Gastrointestinal: soft, positive bowel sounds diffuse TTP Neurological: non-focal, moves all 4 limbs Psychiatric: normal affect, A&O x 3 Dx/Plan (1) Pneumonia Code(s): J18.9 - PNEUMONIA, UNSPECIFIED ORGANISM Status: Acute Qualifiers: Pneumonia type: due to methicillin-resistant Staphylococcus aureus (MRSA) Comment: including tracheobronchitis, on Linezolid and Zosyn since 01/04/2019, Dr. Wyatt following (2) Duodenal ulcer, perforated Code(s): K26.5 - CHRONIC OR UNSPECIFIED DUODENAL ULCER WITH PERFORATION Status : Acute Comment: s/p antrectomy, with duodenal stump leak postop, Dr. Morgan following, CT with persistent leak 01/10/19, CT guided percutaneous drain placement 01/11/19 (3) Anemia due to acute blood loss Code(s): D62 - ACUTE POSTHEMORRHAGIC ANEMIA Status: Acute Comment: s/p total 5 unit PRBC (4) Hypertensive urgency Code(s): I16.0 - HYPERTENSIVE URGENCY Status: Acute Comment: improved (5) Transaminitis Code(s): R74.0 - NONSPEC ELEV OF LEVELS OF TRANSAMNS & LACTIC ACID DEHYDRGNSE Status: Acute (6) Diabetes type 2, controlled Code(s): E11.9 - TYPE 2 DIABETES MELLITUS WITHOUT COMPLICATIONS Status: Chronic (7) Dyslipidemia Code(s): E78.5 - HYPERLIPIDEMIA, UNSPECIFIED Status: Chronic (8) HTN (hypertension) Code(s): I10 - ESSENTIAL (PRIMARY) HYPERTENSION Status: Chronic Qualifiers: Comment: labile control (9) Neuropathic pain Status: Chronic (10) Obesity (BMI 30.0-34.9) Code(s): E66.9 - OBESITY, UNSPECIFIED Status: Chronic (11) Restless leg syndrome Status: Chronic (12) Hypokalemia Code(s): E87.6 - HYPOKALEMIA Status: Acute Comment: repleted, need to recheck - Plan cont current plan of care, continue antibiotics, PT/OT continue care as per surgical team * . - Discharge Day Encounter end time: 13:15
[2019-01-11] MEDS: Lisinopril 20 MG TAB PO SCH ×2 (08:42→20:56)
[2019-01-11] MEDS: cloNIDine 0.2 MG TAB PO SCH ×2 (08:42→20:55)
[2019-01-11] MEDS: Linezolid 600 MG TAB PO SCH ×2 (08:42→20:56)
[2019-01-11] MEDS: Amlodipine 10 MG TAB PO SCH (08:43)
[2019-01-11] MEDS: Pantoprazole 40 MG VIAL IVP SCH ×2 (08:43→20:56)
[2019-01-11] MEDS: Gabapentin 300 MG CAP PO SCH ×3 (08:43→20:55)
[2019-01-11] MEDS: Insulin Glargine 20 UNITS in Pre-Filled Syringe 1 EACH SC SCH (08:44)
[2019-01-11 09:20] LABS: Anion Gap 12 mmol/L (10-20); BUN (Urea Nitrogen) 15 mg/dL (9.8-20.1); Calc. Creatinine Clearance 88 mL/min (70-130); Calcium 8.5 mg/dL (7.8-10.44); Carbon Dioxide 21 mmol/L (23-31); Chloride 106 mmol/L (98-107); Estimated GFR-MDRD Greater than 90; Glucose 139 mg/dL (80-115); Potassium 3.4 mmol/L (3.5-5.1); Sodium 136 mmol/L (136-145)
--- NOTE | 2019-01-11 09:20 | PRG ---
DATE OF SERVICE: 01/11/2019 SUBJECTIVE: This morning, the patient is still having significant abdominal pain, but no shortness of breath. CT abdomen shows right pleural effusion. There is a large fluid collection around the duodenal stump./gas infection around the duodenal stump. She is scheduled to go down for another drain insertion. OBJECTIVE: VITAL SIGNS: Reveal a blood pressure of 195/77, temperature 98, saturations are 98%, respiratory rate 18. CHEST: Wheezing, crackles. CARDIAC: Normal S1, S2. No gallops. ABDOMEN: No masses. IMPRESSION: 1. Status post lap for bleeding. 2. Respiratory failure. 3. Gram-positive MRSA tracheobronchitis. PLAN: She will get another drain placed today under CT guidance. Pulmonary mauricio, we will continue to follow. Neb treatment, antibiotics. Job ID: [id number] MTDD
[2019-01-11] MEDS ORDERED: Sodium Bicarbonate 2.5 MEQ/5 ML VIAL ONE (10:55)
[2019-01-11] MEDS ORDERED: Fentanyl 100 MCG/2 ML VIAL ONE (10:56)
[2019-01-11] MEDS ORDERED: Midazolam HCl 2 mg/2 ml Vial ONE (10:56)
[2019-01-11] MEDS: fentaNYL 75 mcg/hour Patch TD SCH (12:52)
--- NOTE | 2019-01-11 14:04 | CT ---
Right upper quadrant abscess drainage. HISTORY: Patient with free intraperitoneal fluid/abscess. Informed consent was obtained from the patient. The right upper quadrant fluid collection was localiz ed using CT guidance. The overlying skin was prepped and draped in the usual sterile manner. A 1% lidocaine solution was used to anesthetize overlying soft tissues. A small dermatotomy was made. A 5 Guamanian Yueh needle was placed into the peritoneal collection. An Amplatz wire was introduced. The tract was dilated using a 8 Guamanian dilator. An all-purpose drainage catheter was placed over the wire into the right upper quadrant fluid collection. Small amount of bloody fluid was returned. I'm concerned that this collection may be predominantly hematoma. The multihole Guamanian catheter was not a ble to evacuate significant volume of fluid. IMPRESSION: Right upper quadrant drainage catheter placement; however, I'm concerned there may be a l arge collection of hematoma with poor drainage through the recently placed catheter. Transcribed Date/Time: 01/11/2019 2:26 PM
[2019-01-11] MEDS: hydrALAZINE 20 MG/ML VIAL SLOW IVP PRN (17:42)
[2019-01-11] MEDS: SODIUM ACETATE IV SCH (22:11)
[2019-01-11] MEDS: SODIUM CHLORIDE IV SCH (22:11)
[2019-01-11] MEDS: [UNRECOGNIZED DRUG - OTHER] IV SCH (22:11)
[2019-01-11] MEDS: FAT EMULSIONS IV SCH (22:11)
[2019-01-12] MEDS: Ketorolac Tromethamine 30 MG/ML VIAL IVP PRN ×4 (00:03→23:18)
[2019-01-12] MEDS: Acetaminophen 1,000 MG in Premix Bag 1 BAG IVPB PRN ×4 (02:54→20:18)
[2019-01-12] MEDS: HumaLOG 300 UNITS/3 ML VIAL SC PRN ×3 (05:02→18:07)
[2019-01-12] MEDS: Piperacillin/Tazobactam 3.375 GM in Sodium Chloride 0.9% 100 ML IVPB SCH ×4 (05:04→23:19)
[2019-01-12 05:52] LABS: ALT (SGPT) 42 U/L (8-55); AST (SGOT) 36 U/L (5-34); Albumin 2.5 g/dL (3.4-4.8); Alkaline Phosphatase 166 U/L (40-150); Anion Gap 12 mmol/L (10-20); BUN (Urea Nitrogen) 14 mg/dL (9.8-20.1); Bilirubin, Total 1.7 mg/dL (0.2-1.2); Calc. Creatinine Clearance 84 mL/min (70-130); Calcium 8.8 mg/dL (7.8-10.44); Carbon Dioxide 20 mmol/L (23-31); Chloride 104 mmol/L (98-107); Estimated GFR-MDRD Greater than 90; Globulin 4.1 g/dL (2.4-3.5); Glucose 189 mg/dL (80-115); Magnesium 1.4 mg/dL (1.6-2.6); Potassium 3.3 mmol/L (3.5-5.1); Protein, Total 6.6 g/dL (6.0-8.3); Sodium 133 mmol/L (136-145)
[2019-01-12 06:30] LABS: Phosphorus 2.9 mg/dL (2.3-4.7)
--- NOTE | 2019-01-12 07:48 | PDOC.PN ---
- Subjective Encounter Start Date: 01/12/19 Encounter Start Time: 13:00 Subjective: Patient feeling a bit better. Today. Smiling a bit. Ate some breakfast. -: Pain in stomach doing better. - Objective Resuscitation Status - Order Detail: 12/24/18 21:39 Resuscitation Status Routine Resuscitation Status: FULL: Full Resuscitation MAR Reviewed: Yes Vital Signs & Weight: Vital Signs (12 hours) Temp Pulse Resp BP BP BP Pulse Ox 01/12/19 06:22 110 H 20 96 01/12/19 04:10 97.7 F 95 20 169/73 H 94 L 01/12/19 00:35 16 01/11/19 23:46 99.3 F 110 H 16 167/70 H 96 01/11/19 20:56 150/74 H 01/11/19 20:55 150/74 H 97 Weight Admit Weight 125 lb 3.2 oz Weight 128 lb 9.6 oz Most Recent Monitor Data Heart Rate from ECG 95 NIBP 145/84 NIBP BP-Mean 104 Respiration from ECG 29 SpO2 99 I&O: 01/11/19 01/12/19 01/13/19 06:59 06:59 06:59 Intake Total 1040 2690 Output Total 1525 2575 Balance -485 115 Result Diagrams: 01/10/19 03:23 01/12/19 05:15 Additional Labs: Accuchecks 01/12/19 01/11/19 01/11/19 04:31 21:59 17:26 POC Glucose 225 H 155 H 216 H 01/11/19 12:37 POC Glucose 146 H Phys Exam - Physical Examination Constitutional: NAD HEENT: moist MMs Respiratory: no wheezing, no rales, no rhonchi Cardiovascular: RRR, no significant murmur Gastrointestinal: soft, positive bowel sounds TTP, but improved Musculoskeletal: no edema Neurological: non-focal Psychiatric: normal affect, A&O x 3 Dx/Plan (1) Pneumonia Code(s): J18.9 - PNEUMONIA, UNSPECIFIED ORGANISM Status: Acute Qualifiers: Pneumonia type: due to methicillin-resistant Staphylococcus aureus (MRSA) Comment: including tracheobronchitis, on Linezolid and Zosyn since 01/04/2019, Dr. Wyatt following (2) Duodenal ulcer, perforated Code(s): K26.5 - CHRONIC OR UNSPECIFIED DUODENAL ULCER WITH PERFORATION Status : Acute Comment: s/p antrectomy, with duodenal stump leak postop, Dr. Morgan following, CT with persistent leak 01/10/19, CT guided percutaneous drain placement 01/11/19 (3) Anemia due to acute blood loss Code(s): D62 - ACUTE POSTHEMORRHAGIC ANEMIA Status: Acute Comment: s/p total 5 unit PRBC (4) Hypertensive urgency Code(s): I16.0 - HYPERTENSIVE URGENCY Status: Acute Comment: improved (5) Transaminitis Code(s): R74.0 - NONSPEC ELEV OF LEVELS OF TRANSAMNS & LACTIC ACID DEHYDRGNSE Status: Acute (6) Diabetes type 2, controlled Code(s): E11.9 - TYPE 2 DIABETES MELLITUS WITHOUT COMPLICATIONS Status: Chronic (7) Dyslipidemia Code(s): E78.5 - HYPERLIPIDEMIA, UNSPECIFIED Status: Chronic (8) HTN (hypertension) Code(s): I10 - ESSENTIAL (PRIMARY) HYPERTENSION Status: Chronic Qualifiers: Comment: labile control (9) Neuropathic pain Status: Chronic (10) Obesity (BMI 30.0-34.9) Code(s): E66.9 - OBESITY, UNSPECIFIED Status: Chronic (11) Restless leg syndrome Status: Chronic (12) Hypokalemia Code(s): E87.6 - HYPOKALEMIA Status: Acute Comment: repleted, need to recheck - Plan cont current plan of care, continue antibiotics, PT/OT Improving, advance diet as tolerated and hopefully can get off TPN * . - Discharge Day Encounter end time: 13:15
[2019-01-12] MEDS ORDERED: Potassium Chloride 10 MEQ in Premix Bag 1 BAG IVPB SCH (08:00)
[2019-01-12] MEDS: Gabapentin 300 MG CAP PO SCH ×3 (08:04→20:17)
[2019-01-12] MEDS: Labetalol HCl 100 MG/20 ML VIAL SLOW IVP PRN (08:04)
[2019-01-12] MEDS: Lisinopril 20 MG TAB PO SCH ×2 (09:58→20:17)
[2019-01-12] MEDS: Linezolid 600 MG TAB PO SCH ×2 (09:58→20:17)
[2019-01-12] MEDS: cloNIDine 0.2 MG TAB PO SCH ×2 (09:59→20:16)
[2019-01-12] MEDS: Amlodipine 10 MG TAB PO SCH (09:59)
[2019-01-12] MEDS: Pantoprazole 40 MG VIAL IVP SCH ×2 (10:00→20:18)
[2019-01-12] MEDS: Insulin Glargine 20 UNITS in Pre-Filled Syringe 1 EACH SC SCH (10:01)
--- NOTE | 2019-01-12 12:31 | PRG ---
DATE OF SERVICE: 01/12/2019 SUBJECTIVE: This morning, she is awake, alert, and responsive. Still having pain. OBJECTIVE: VITAL SIGNS: Blood pressure 170/74, pulse 108, maximum temperature was 97, respiratory rate 18. CHEST: Decreased breath sounds. No wheezing. CARDIAC: Normal S1 and S2. No gallops. ABDOMEN: No masses.. She had a drain inserted in the abdomen, which drained bilious Concerned there may be a hematoma. ASSESSMENT: Status post lap, methicillin-resistant Staphylococcus aureus tracheobronchitis, pneumonia, severe deconditioning, bleeding ulcer. PLAN: Continue Zyvox. Continue PT, supportive care, TPN. We will follow. Job ID: [id number] MTDD
[2019-01-12] MEDS: hydrALAZINE 20 MG/ML VIAL SLOW IVP PRN (13:45)
--- NOTE | 2019-01-12 13:50 | PRG ---
DATE OF SERVICE: 01/12/2019 SUBJECTIVE: Ms. Qureshi has no complaints today. She does have some pain around her new drain site in her right posterior flank. Her perc drainage results are noted, appears that this was more of a hematoma over the liver and not a loculated fluid collection. She is actually hungry today. OBJECTIVE: VITAL SIGNS: She is afebrile. Vital signs are stable. ABDOMEN: Soft and nontender. LABORATORY DATA: Her bilirubin remains at 1.7. ASSESSMENT AND PLAN: Continued improvement. Advance to GI soft diet. Continue drainage of duodenal stump leak. Likely to rehab LTAC next week. Job ID: [id number]
[2019-01-12] MEDS: SODIUM ACETATE IV SCH (22:00)
[2019-01-12] MEDS: SODIUM CHLORIDE IV SCH (22:00)
[2019-01-12] MEDS: [UNRECOGNIZED DRUG - OTHER] IV SCH (22:00)
[2019-01-12] MEDS: FAT EMULSIONS IV SCH (22:00)
[2019-01-13] MEDS: HumaLOG 300 UNITS/3 ML VIAL SC PRN ×5 (00:39→21:50)
[2019-01-13] MEDS: cloNIDine 0.1 MG TAB PO PRN ×3 (00:40→15:59)
[2019-01-13] MEDS: Acetaminophen 1,000 MG in Premix Bag 1 BAG IVPB PRN ×4 (01:58→21:50)
[2019-01-13] MEDS: Gabapentin 300 MG CAP PO SCH ×3 (05:29→21:27)
[2019-01-13] MEDS: Piperacillin/Tazobactam 3.375 GM in Sodium Chloride 0.9% 100 ML IVPB SCH ×3 (05:30→18:54)
[2019-01-13 06:57] LABS: #Eosinphils 0.1 thou/uL (0.0-0.7); #Lymphocytes 0.5 thou/uL (1.20-3.40); #Monocytes 0.4 thou/uL (0.11-0.59); #Neutrophils 12.8 thou/uL (1.40-6.50); %Basophils 0.2 % (0.0-1.0); %Eosinophils 0.4 % (0.0-10.0); %Lymphocytes 3.7 % (21.0-51.0); %Monocytes 2.7 % (0.0-10.0); Hemoglobin 8.5 g/dL (12.0-16.0); Mean Corpuscular HGB CONC 32.5 g/dL (32.0-36.0); Mean Corpuscular Hemoglobin 29.3 pg (27.0-31.0); Mean Corpuscular Volume 90.3 fL (78.0-98.0); Mean Platelet Volume 7.2 fL (7.4-10.4); Platelet Count 561 thou/uL (130-400); RBC Distribution Width 15.7 % (11.5-14.5); Red Blood Cell (RBC) Count 2.89 mill/uL (4.20-5.40); White Blood Cell (WBC) Count 13.8 thou/uL (4.8-10.8)
[2019-01-13 07:16] LABS: Anion Gap 12 mmol/L (10-20); BUN (Urea Nitrogen) 11 mg/dL (9.8-20.1); Calc. Creatinine Clearance 88 mL/min (70-130); Calcium 8.6 mg/dL (7.8-10.44); Carbon Dioxide 19 mmol/L (23-31); Chloride 107 mmol/L (98-107); Estimated GFR-MDRD Greater than 90; Glucose 182 mg/dL (80-115); Potassium 3.2 mmol/L (3.5-5.1); Sodium 135 mmol/L (136-145)
[2019-01-13] MEDS: Ketorolac Tromethamine 30 MG/ML VIAL IVP PRN ×2 (08:34→16:10)
[2019-01-13] MEDS: cloNIDine 0.2 MG TAB PO SCH ×2 (08:42→21:26)
[2019-01-13] MEDS: Amlodipine 10 MG TAB PO SCH (08:42)
[2019-01-13] MEDS: Linezolid 600 MG TAB PO SCH ×2 (08:43→21:26)
[2019-01-13] MEDS: Lisinopril 20 MG TAB PO SCH ×2 (08:43→21:26)
[2019-01-13] MEDS: Pantoprazole 40 MG VIAL IVP SCH ×2 (08:44→21:27)
[2019-01-13] MEDS: Insulin Glargine 20 UNITS in Pre-Filled Syringe 1 EACH SC SCH (08:50)
[2019-01-13] MEDS ORDERED: Gabapentin 300 MG CAP PO SCH (09:00)
--- NOTE | 2019-01-13 09:13 | PRG ---
DATE OF SERVICE: 01/13/2019 SUBJECTIVE: No shortness of breath. No cough. Abdominal pain, severe neuropathic pain. OBJECTIVE: VITAL SIGNS: Pulse 111, saturations 90% on 3 L, blood pressure 180/80, respiratory rate 18. CHEST: No wheezing. CARDIAC: Normal S1 and S2. No gallops. ABDOMEN: No masses. IMPRESSION: 1. Status post lap for bleeding peptic ulcer disease. It is showing fluid collection around the surgical site. 2. Aspiration pneumonia and diabetic neuropathy. PLAN: Pulmonary mauricio, she has had adequate antibiotics for MRSA tracheobronchitis. X-ray is better. Probably can be discontinued after 10 days. Otherwise, supportive care and PT. Job ID: [id number]
[2019-01-13] MEDS: Labetalol HCl 100 MG/20 ML VIAL SLOW IVP PRN (11:24)
--- NOTE | 2019-01-13 14:27 | PDOC.GSPN ---
Surgery Progress Note: Subj - Subjective Narrative: c/o pain at new flank drain site Surgery Progress Note: Obj - Vital signs Vital signs: Vital Signs - Most Recent Temp Pulse Resp BP Pulse Ox 99.0 F 96 28 H 191/84 H 99 01/13/19 04:00 01/13/19 13:43 01/13/19 13:43 01/13/19 11:24 01/13/19 08:40 - Physical Exam General: no distress Cardiovascular: regular rate and rhythm Respiratory: clear to auscultation Abdomen: soft, appropriately tender Wound: healing well (ELEANOR drain site redressed. Central line dressing changed. ELEANOR drainage much less.) Surgery Progress Note: Results - Labs Result Diagrams: 01/13/19 06:39 01/13/19 06:39 Lab results: Laboratory Results - last 24 hr 01/13/19 01/13/19 01/13/19 05:26 06:39 06:39 WBC 13.8 H RBC 2.89 L Hgb 8.5 L Hct 26.1 L MCV 90.3 MCH 29.3 MCHC 32.5 RDW 15.7 H Plt Count 561 H MPV 7.2 L Neutrophils % 93.0 H Lymphocytes % 3.7 L Monocytes % 2.7 Eosinophils % 0.4 Basophils % 0.2 Neutrophils # 12.8 H Lymphocytes # 0.5 L Monocytes # 0.4 Eosinophils # 0.1 Basophils # 0.0 Sodium 135 L Potassium 3.2 L Chloride 107 Carbon Dioxide 19 L Anion Gap 12 BUN 11 Creatinine 0.60 Estimated GFR (MDRD) Greater than 90 Glucose 182 H POC Glucose 201 H Calcium 8.6 01/13/19 11:49 WBC RBC Hgb Hct MCV MCH MCHC RDW Plt Count MPV Neutrophils % Lymphocytes % Monocytes % Eosinophils % Basophils % Neutrophils # Lymphocytes # Monocytes # Eosinophils # Basophils # Sodium Potassium Chloride Carbon Dioxide Anion Gap BUN Creatinine Estimated GFR (MDRD) Glucose POC Glucose 233 H Calcium Surgery Progress Note: A/P - Problem (1) Perforated duodenal ulcer with hemorrhage Current Visit: Yes Code(s): K26.6 - CHRONIC OR UNSP DUODENAL ULCER W BOTH HEMORRHAGE AND PERF Status: Acute - Plan Plan: LFT's trending down -tolerating 50% GI soft, plan dc tpn in next few days if taking adequate po -ELEANOR output less, ?closing fistula vs drain obstruction -DC'd flank drain. Was only hematoma, no retained bile collection. -Up'd gabapentin to home dose. She was having more pain in her legs.
--- NOTE | 2019-01-13 21:29 | PDOC.PN ---
- Subjective Encounter Start Date: 01/13/19 Encounter Start Time: 17:30 Says she is doing ok. Pain is controlled. No new complaints. - Objective Resuscitation Status - Order Detail: 12/24/18 21:39 Resuscitation Status Routine Resuscitation Status: FULL: Full Resuscitation Vital Signs & Weight: Vital Signs (12 hours) Temp Pulse Resp BP BP Pulse Ox 01/13/19 20:47 99.5 F 111 H 18 168/70 H 95 01/13/19 19:02 101 H 20 96 01/13/19 15:59 191/84 H 01/13/19 13:43 96 28 H 01/13/19 11:24 110 H 191/84 H Weight Admit Weight 125 lb 3.2 oz Weight 128 lb 9.6 oz Most Recent Monitor Data Heart Rate from ECG 95 NIBP 145/84 NIBP BP-Mean 104 Respiration from ECG 29 SpO2 99 I&O: 01/12/19 01/13/19 01/14/19 06:59 06:59 06:59 Intake Total 2690 2060 1400 Output Total 2575 2470 3320 Balance 115 -410 -1920 Result Diagrams: 01/13/19 06:39 01/13/19 06:39 Additional Labs: Accuchecks 01/13/19 01/13/19 01/13/19 17:56 11:49 05:26 POC Glucose 171 H 233 H 201 H 01/13/19 01/12/19 00:05 09:21 POC Glucose 189 H 149 H Phys Exam - Physical Examination Constitutional: NAD Respiratory: no wheezing, no rales, no rhonchi Slightly tachypneic Cardiovascular: RRR, no significant murmur, no rub Gastrointestinal: soft, no distention, positive bowel sounds Musculoskeletal: no edema Neurological: non-focal Psychiatric: normal affect, A&O x 3 Dx/Plan (1) Anemia due to acute blood loss Code(s): D62 - ACUTE POSTHEMORRHAGIC ANEMIA Status: Acute Comment: s/p total 5 unit PRBC (2) Duodenal ulcer, perforated Code(s): K26.5 - CHRONIC OR UNSPECIFIED DUODENAL ULCER WITH PERFORATION Status : Acute Comment: s/p antrectomy, with duodenal stump leak postop, Dr. Morgan following, CT with persistent leak 01/10/19, CT guided percutaneous drain placement 01/11/19 (3) Hypertensive urgency Code(s): I16.0 - HYPERTENSIVE URGENCY Status: Acute Comment: improved (4) Pneumonia Code(s): J18.9 - PNEUMONIA, UNSPECIFIED ORGANISM Status: Acute Qualifiers: Pneumonia type: due to methicillin-resistant Staphylococcus aureus (MRSA) Comment: including tracheobronchitis, on Linezolid and Zosyn since 01/04/2019, Dr. Wyatt following (5) Abnormal LFTs Code(s): R94.5 - ABNORMAL RESULTS OF LIVER FUNCTION STUDIES Status: Acute Comment: due to billiary obstruction from periampullary swelling (6) Hypokalemia Code(s): E87.6 - HYPOKALEMIA Status: Acute Comment: repleted, need to recheck (7) Diabetes type 2, controlled Code(s): E11.9 - TYPE 2 DIABETES MELLITUS WITHOUT COMPLICATIONS Status: Chronic (8) Dyslipidemia Code(s): E78.5 - HYPERLIPIDEMIA, UNSPECIFIED Status: Chronic (9) HTN (hypertension) Code(s): I10 - ESSENTIAL (PRIMARY) HYPERTENSION Status: Chronic Qualifiers: Comment: labile control (10) Neuropathic pain Status: Chronic (11) Obesity (BMI 30.0-34.9) Code(s): E66.9 - OBESITY, UNSPECIFIED Status: Chronic (12) Restless leg syndrome Status: Chronic - Plan * Followed by Gen Surg and Pulmonary. * So far, abd fluid cx negative. * Advancing po's. * Still tachycardic and tachypneic.
[2019-01-13] MEDS: FAT EMULSIONS IV SCH (23:01)
[2019-01-13] MEDS: [UNRECOGNIZED DRUG - OTHER] IV SCH (23:01)
[2019-01-13] MEDS: SODIUM ACETATE IV SCH (23:01)
[2019-01-13] MEDS: SODIUM CHLORIDE IV SCH (23:01)
[2019-01-14] MEDS: Piperacillin/Tazobactam 3.375 GM in Sodium Chloride 0.9% 100 ML IVPB SCH ×3 (00:24→11:35)
[2019-01-14] MEDS: Ketorolac Tromethamine 30 MG/ML VIAL IVP PRN ×2 (00:24→12:25)
[2019-01-14] MEDS: Acetaminophen 1,000 MG in Premix Bag 1 BAG IVPB PRN ×2 (05:04→14:27)
[2019-01-14] MEDS: Fentanyl 100 MCG/2 ML VIAL SLOW IVP PRN (05:51)
[2019-01-14] MEDS: HumaLOG 300 UNITS/3 ML VIAL SC PRN ×3 (07:37→16:09)
[2019-01-14] MEDS: cloNIDine 0.2 MG TAB PO SCH ×2 (08:17→20:35)
[2019-01-14] MEDS: Gabapentin 300 MG CAP PO SCH ×3 (08:18→20:35)
[2019-01-14] MEDS: Linezolid 600 MG TAB PO SCH (08:18)
[2019-01-14] MEDS: Amlodipine 10 MG TAB PO SCH (08:18)
[2019-01-14] MEDS: Lisinopril 20 MG TAB PO SCH ×2 (08:19→20:35)
[2019-01-14] MEDS: Pantoprazole 40 MG VIAL IVP SCH (08:19)
[2019-01-14] MEDS: Acetaminophen 325 MG TAB PO PRN (08:19)
[2019-01-14] MEDS: Insulin Glargine 20 UNITS in Pre-Filled Syringe 1 EACH SC SCH (08:29)
[2019-01-14] MEDS: fentaNYL 75 mcg/hour Patch TD SCH (11:36)
[2019-01-14] MEDS: Labetalol HCl 100 MG/20 ML VIAL SLOW IVP PRN ×2 (11:40→23:44)
[2019-01-14 12:19] LABS: #Lymphocytes 0.6 thou/uL (1.20-3.40); #Monocytes 0.4 thou/uL (0.11-0.59); #Neutrophils 10.1 thou/uL (1.40-6.50); %Basophils 0.2 % (0.0-1.0); %Eosinophils 0.2 % (0.0-10.0); %Lymphocytes 5.7 % (21.0-51.0); %Monocytes 3.9 % (0.0-10.0); %Neutrophils 89.9 % (42.0-75.0); Hemoglobin 7.9 g/dL (12.0-16.0); Mean Corpuscular HGB CONC 32.7 g/dL (32.0-36.0); Mean Corpuscular Hemoglobin 29.8 pg (27.0-31.0); Mean Corpuscular Volume 91.1 fL (78.0-98.0); Mean Platelet Volume 7.6 fL (7.4-10.4); Platelet Count 462 thou/uL (130-400); RBC Distribution Width 15.8 % (11.5-14.5); Red Blood Cell (RBC) Count 2.64 mill/uL (4.20-5.40); White Blood Cell (WBC) Count 11.2 thou/uL (4.8-10.8)
--- NOTE | 2019-01-14 12:25 | RAD ---
XR Chest 1 View Portable History: [Fever. Left lower lobe Rales] Comparison: Radiograph in second 2019 Findings: Lungs are hyperinflated. Mild pulmonary edema. No pneumothorax. Chronic elevation right hem idiaphragm. Central venous catheter is similar. Heart size continues to be enlarged. Atelectasis left lower lobe. Impression: 1. Cardiomegaly and mild pulmonary edema. 2. Mild left lower lobe atelectatic changes, slightly improved.
--- NOTE | 2019-01-14 12:45 | PDOC.PN ---
- Subjective Encounter Start Date: 01/14/19 Encounter Start Time: 11:45 Feels ok. Denies significant abdominal pain. Denies SOB, but when pressed says it has been harder for her to talk because she gets SOB since last night. She also admits to some dysuria. - Objective Resuscitation Status - Order Detail: 12/24/18 21:39 Resuscitation Status Routine Resuscitation Status: FULL: Full Resuscitation Vital Signs & Weight: Vital Signs (12 hours) Temp Pulse Resp BP BP Pulse Ox 01/14/19 11:40 108 H 185/81 H 01/14/19 11:00 99.3 F 108 H 16 187/84 H 98 01/14/19 08:19 185/81 H 01/14/19 08:18 123 H 01/14/19 08:17 185/81 H 01/14/19 08:05 94 L 01/14/19 07:25 100.3 F H 123 H 16 185/81 H 94 L 01/14/19 07:11 120 H 20 01/14/19 04:40 99.8 F H 104 H 18 134/59 L 93 L Weight Admit Weight 125 lb 3.2 oz Weight 128 lb 9.6 oz Most Recent Monitor Data Heart Rate from ECG 95 NIBP 145/84 NIBP BP-Mean 104 Respiration from ECG 29 SpO2 99 I&O: 01/13/19 01/14/19 01/15/19 06:59 06:59 06:59 Intake Total 2060 1400 1220 Output Total 2470 3330 Balance -410 -1930 1220 Result Diagrams: 01/14/19 12:10 01/13/19 06:39 Additional Labs: Accuchecks 01/14/19 01/14/19 01/13/19 10:29 05:21 21:47 POC Glucose 173 H 227 H 186 H 01/13/19 01/12/19 17:56 09:21 POC Glucose 171 H 149 H Phys Exam - Physical Examination Constitutional: NAD Lying in the chair on her left side. Prominent left basilar rales. Mild tachypnea. Cardiovascular: RRR, no significant murmur, no rub Tachy Gastrointestinal: soft, non-tender, no distention, positive bowel sounds Musculoskeletal: no edema Neurological: non-focal Psychiatric: normal affect, A&O x 3 Skin: normal turgor Dx/Plan (1) Duodenal ulcer, perforated Code(s): K26.5 - CHRONIC OR UNSPECIFIED DUODENAL ULCER WITH PERFORATION Status : Acute Comment: s/p antrectomy, with duodenal stump leak postop, Dr. Morgan following, CT with persistent leak 01/10/19, CT guided percutaneous drain placement 01/11/19 (2) Anemia due to acute blood loss Code(s): D62 - ACUTE POSTHEMORRHAGIC ANEMIA Status: Acute Comment: s/p total 5 unit PRBC (3) Hypertensive urgency Code(s): I16.0 - HYPERTENSIVE URGENCY Status: Resolved Comment: improved (4) Pneumonia Code(s): J18.9 - PNEUMONIA, UNSPECIFIED ORGANISM Status: Acute Qualifiers: Pneumonia type: due to methicillin-resistant Staphylococcus aureus (MRSA) Comment: including tracheobronchitis, on Linezolid and Zosyn since 01/04/2019, Dr. Wyatt following (5) Abnormal LFTs Code(s): R94.5 - ABNORMAL RESULTS OF LIVER FUNCTION STUDIES Status: Acute Comment: due to billiary obstruction from periampullary swelling (6) Hypokalemia Code(s): E87.6 - HYPOKALEMIA Status: Acute Comment: repleted, need to recheck (7) Diabetes type 2, controlled Code(s): E11.9 - TYPE 2 DIABETES MELLITUS WITHOUT COMPLICATIONS Status: Chronic (8) Dyslipidemia Code(s): E78.5 - HYPERLIPIDEMIA, UNSPECIFIED Status: Chronic (9) HTN (hypertension) Code(s): I10 - ESSENTIAL (PRIMARY) HYPERTENSION Status: Chronic Qualifiers: Comment: labile control (10) Neuropathic pain Status: Chronic (11) Obesity (BMI 30.0-34.9) Code(s): E66.9 - OBESITY, UNSPECIFIED Status: Chronic (12) Restless leg syndrome Status: Chronic (13) Abdominal abscess Code(s): [id number] - Status: Acute Comment: S/P drain - Plan * She is still mildly febrile, tachycardic and tachypneic. * WBC up slightly yesterday. Will recheck today. * UA for dysuria, leuks and fever. * CXR for Left basilar rales that sound more prominent today. * Encouraged IS. Stays on her left side and likely causing some atelectasis. * Continue Zosyn. Zyvox course has ended and likely adequate coverage for the MRSA pneumonia. * Hemoglobin is holding. * Surgery, Pulm following.
[2019-01-14 12:58] LABS: Bilirubin Negative (Negative); Blood, Urine Negative (Negative); Clarity CLEAR (Clear); Glucose, Urine (Dipstick) 100 mg/dL (Negative); Leukocyte Negative (Negative); Nitrite Negative (Negative); Protein, Urine (Dipstick) 30 mg/dL (Neg-Trace); Urobilinogen 0.2 mg/dL (0.2-1.0)
[2019-01-14 13:00] LABS: Bacteria/HPF None Seen HPF (None Seen); Hyaline Casts/LPF 0-3 HYALINE CAST LPF (0-3 Hyaline); Squamous Epithelial 0-3 HPF (0-3); WBC/HPF 0-3 HPF (0-3)
[2019-01-14] MEDS ORDERED: traMADol HCl 50 MG TAB PO PRN (14:37)
--- NOTE | 2019-01-14 15:09 | PRG ---
DATE OF SERVICE: 01/14/2019 SUBJECTIVE: Maisha Qureshi is tolerating regular diet. Her central line has malfunctioned, leaking TPN solution. She is on Zosyn parenteral. She is tolerating diet. She is also getting p.r.n. Ofirmev. She complains of pain when she moves. Her biliary drain output continues to diminish in the last 24 hours. His drain of 30 mL is biliary in nature. Her CT-guided drain has been removed, that only drained old hematoma. LABORATORY DATA: There are no laboratories today. OBJECTIVE: LUNGS: Clear to auscultation. CARDIAC: Regular rate and rhythm without murmur or gallop. ABDOMEN: Soft, nontender. EXTREMITIES: Unremarkable. ASSESSMENT AND PLAN: Dysfunctional central line. Discontinue TPN. Change Zosyn to Augmentin orally. Change Ofirmev to p.o. Tylenol. Establish a peripheral IV. If she needs an another central line, I can replace one or she can have a PICC line. Hopefully, we can avoid this. Job ID: [id number]
--- NOTE | 2019-01-14 16:43 | EKG ---
Test Reason : Blood Pressure : / mmHG Vent. Rate : 086 BPM Atrial Rate : 086 BPM P-R Int : 146 ms QRS Dur : 084 ms QT Int : 368 ms P-R-T Axes : 025 -12 027 degrees QTc Int : 440 ms Normal sinus rhythm Possible Left atrial enlargement Left ventricular hypertrophy Abnormal ECG Confirmed by MIGNON SHIPMAN DO ([id number]), editorial writer ABI DANIEL ([id number] on 01/14/2019 4:43:21 PM Referred By: Confirmed By:MIGNON SHIPMAN DO
[2019-01-14] MEDS: HYDROcodone/Acetaminophen 10/325 mg Tablet PO PRN (22:48)
[2019-01-15] MEDS: HumaLOG 300 UNITS/3 ML VIAL SC PRN (00:35)
[2019-01-15] MEDS: Ketorolac Tromethamine 30 MG/ML VIAL IVP PRN ×2 (00:36→09:00)
[2019-01-15 05:46] LABS: ALT (SGPT) 39 U/L (8-55); AST (SGOT) 38 U/L (5-34); Albumin 2.7 g/dL (3.4-4.8); Alkaline Phosphatase 187 U/L (40-150); Anion Gap 15 mmol/L (10-20); BUN (Urea Nitrogen) 18 mg/dL (9.8-20.1); Bilirubin, Total 1.3 mg/dL (0.2-1.2); Calc. Creatinine Clearance 68 mL/min (70-130); Carbon Dioxide 19 mmol/L (23-31); Chloride 107 mmol/L (98-107); Estimated GFR-MDRD 72; Globulin 4.8 g/dL (2.4-3.5); Glucose 70 mg/dL (80-115); Potassium 3.4 mmol/L (3.5-5.1); Protein, Total 7.5 g/dL (6.0-8.3); Sodium 138 mmol/L (136-145)
[2019-01-15] MEDS: Gabapentin 300 MG CAP PO SCH ×3 (08:06→20:43)
[2019-01-15] MEDS: Amlodipine 10 MG TAB PO SCH (08:06)
[2019-01-15] MEDS: cloNIDine 0.2 MG TAB PO SCH ×2 (08:07→20:44)
[2019-01-15] MEDS: Insulin Glargine 20 UNITS in Pre-Filled Syringe 1 EACH SC SCH (08:07)
[2019-01-15] MEDS: Lisinopril 20 MG TAB PO SCH ×2 (08:07→20:45)
--- NOTE | 2019-01-15 10:05 | RAD ---
XR Chest 1 View Portable History: Dyspnea Comparison: Radiograph prior day Findings: Interval removal of the central venous catheter. Lungs are hypoinflated with vascular crowd ing and bibasilar atelectasis. Heart size is enlarged. No pneumothorax. Impression: Removal of the central venous catheter otherwise unchanged exam.
[2019-01-15] MEDS: Acetaminophen 500 MG TAB PO PRN ×3 (11:00→22:27)
--- NOTE | 2019-01-15 12:07 | PDOC.PN ---
- Subjective Encounter Start Date: 01/15/19 Encounter Start Time: 10:30 Feels ok. Feels about the same as yesterday. Denies abd. pain or SOB. - Objective Resuscitation Status - Order Detail: 12/24/18 21:39 Resuscitation Status Routine Resuscitation Status: FULL: Full Resuscitation Vital Signs & Weight: Vital Signs (12 hours) Temp Pulse Resp BP BP BP BP 01/15/19 10:10 121 H 130/70 121/67 01/15/19 08:07 125/81 01/15/19 08:06 113 H 01/15/19 08:00 98.5 F 113 H 16 125/81 01/15/19 07:56 98.5 F 113 H 16 125/81 01/15/19 07:15 01/15/19 07:11 116 H 22 H 01/15/19 04:33 99 F 113 H 14 101/68 01/15/19 00:46 101 H 20 01/15/19 00:09 99.0 F 98 20 170/80 H BP Pulse Ox 01/15/19 10:10 147/77 H 01/15/19 08:07 01/15/19 08:06 01/15/19 08:00 95 01/15/19 07:56 99 01/15/19 07:15 99 01/15/19 07:11 99 01/15/19 04:33 98 01/15/19 00:46 98 01/15/19 00:09 98 Weight Admit Weight 125 lb 3.2 oz Weight 132 lb 8 oz Most Recent Monitor Data Heart Rate from ECG 95 NIBP 145/84 NIBP BP-Mean 104 Respiration from ECG 29 SpO2 99 I&O: 01/14/19 01/15/19 01/16/19 06:59 06:59 06:59 Intake Total 1400 8525 Output Total 3330 10 Balance -1930 8515 Result Diagrams: 01/14/19 12:10 01/15/19 04:42 Additional Labs: Accuchecks 01/15/19 01/14/19 01/14/19 10:36 23:58 15:24 POC Glucose 140 H 225 H 192 H Radiology Reviewed by me: Yes Phys Exam - Physical Examination Constitutional: NAD Neck: no nodes, no JVD Respiratory: no wheezing Mild left basilar rales. Cardiovascular: RRR, no significant murmur Gastrointestinal: soft, non-tender, no distention, positive bowel sounds Musculoskeletal: no edema Neurological: non-focal, normal sensation Was initially difficult to awaken, but did come fully awake. Psychiatric: normal affect, A&O x 3 Dx/Plan (1) Duodenal ulcer, perforated Code(s): K26.5 - CHRONIC OR UNSPECIFIED DUODENAL ULCER WITH PERFORATION Status : Acute Comment: s/p antrectomy, with duodenal stump leak postop, Dr. Morgan following, CT with persistent leak 01/10/19, CT guided percutaneous drain placement 01/11/19 (2) Anemia due to acute blood loss Code(s): D62 - ACUTE POSTHEMORRHAGIC ANEMIA Status: Acute Comment: s/p total 5 unit PRBC (3) Hypertensive urgency Code(s): I16.0 - HYPERTENSIVE URGENCY Status: Resolved Comment: improved (4) Pneumonia Code(s): J18.9 - PNEUMONIA, UNSPECIFIED ORGANISM Status: Resolved Qualifiers: Pneumonia type: due to methicillin-resistant Staphylococcus aureus (MRSA) Comment: including tracheobronchitis, on Linezolid and Zosyn since 01/04/2019, Dr. Wyatt following (5) Abnormal LFTs Code(s): R94.5 - ABNORMAL RESULTS OF LIVER FUNCTION STUDIES Status: Acute Comment: due to billiary obstruction from periampullary swelling (6) Hypokalemia Code(s): E87.6 - HYPOKALEMIA Status: Acute Comment: repleted, need to recheck (7) Diabetes type 2, controlled Code(s): E11.9 - TYPE 2 DIABETES MELLITUS WITHOUT COMPLICATIONS Status: Chronic (8) Dyslipidemia Code(s): E78.5 - HYPERLIPIDEMIA, UNSPECIFIED Status: Chronic (9) HTN (hypertension) Code(s): I10 - ESSENTIAL (PRIMARY) HYPERTENSION Status: Chronic Qualifiers: Comment: labile control (10) Neuropathic pain Status: Chronic (11) Obesity (BMI 30.0-34.9) Code(s): E66.9 - OBESITY, UNSPECIFIED Status: Chronic (12) Restless leg syndrome Status: Chronic (13) Abdominal abscess Code(s): [id number] - Status: Acute Comment: S/P drain (14) Tachycardia Code(s): R00.0 - TACHYCARDIA, UNSPECIFIED Status: Acute (15) Atelectasis of left lung Code(s): J98.11 - ATELECTASIS Status: Acute - Plan * Still tachycardic. * Etiology is unclear. * Checking orthostatic vitals. * Recheck CBC in a.m. * No medical reason for tachycardia known at present. May be still related to the surgical issues. * Continue IS. * Glucose control adequate.
--- NOTE | 2019-01-15 13:32 | PRG ---
DATE OF SERVICE: 01/15/2019 SUBJECTIVE: Ms. Qureshi is doing well today. She is tolerating her diet. Her TPN was discontinued yesterday. Her Zosyn is changed to Augmentin p.o. OBJECTIVE: VITAL SIGNS: Heart rate 113 to 120, , saturations 99% on room air, . LUNGS: Clear to auscultation. CARDIAC: Regular rate and rhythm without murmur or gallop. ABDOMEN: Soft, nontender with hannah in place. LABORATORY DATA: Dr. Cook checked her CBC this morning, that is pending. White count yesterday was 11.2, hemoglobin was 7.9. Basic metabolic profile, normal this morning. Potassium 3.4, bilirubin 1.3. ELEANOR output 10 mL per 24 hours. ASSESSMENT AND PLAN: Doing well. Bile leak seems to be closing. We will remove her hannah today. We will discontinue her Augmentin. She should be able to be transferred to rehab for severe deconditioning in the very near future. Job ID: [id number]
[2019-01-15] MEDS: traMADol HCl 50 MG TAB PO PRN (19:23)
--- NOTE | 2019-01-15 19:29 | PRG ---
DATE OF SERVICE: 01/15/2019 SUBJECTIVE: Ms. Qureshi is in no distress. Her family says she looks the way she has looked for several days. I did note she was mildly tachypneic, but it was more of tachypnea created by muscle weakness than one created by respiratory distress. I looked at yesterday's chest x-ray and there are no infiltrates or pleural effusion. She does have an elevated right hemidiaphragm. I repeated her radiograph today and it was unchanged. Yesterday's hemoglobin was 7.9, which is essentially the same as the day before at 8.5. Her electrolytes were unremarkable. Her anion gap was 12. Sodium was 138, potassium 3.4, chloride 107, bicarb 19, BUN 18, and creatinine 0.8. OBJECTIVE: LUNGS: Clear. HEART: Regular rhythm. ABDOMEN: Soft and nontender. She does have a protuberant abdomen, but she had bowel sounds. VITAL SIGNS: She is afebrile. Heart rate is 102 this afternoon, respiratory rate 16, blood pressure 167/67, and oximetry is 93% on room air. IMPRESSION AND PLAN: 1. Status post long hospitalization with weakness and deconditioning after a laparotomy for bleeding ulcer. 2. Aspiration pneumonia, that has clinically resolved. 3. Diabetic neuropathy. 4. Extreme deconditioning. 5. Tracheobronchitis, felt to possibly be secondary to methicillin-resistant Staphylococcus aureus. She has a CBC ordered in the morning. She appears to be clinically stable. I answered all the family's questions. The biggest issue is that she needs to start doing a little more for herself every day. She had multiple family members that were very attentive and I have feeling they are continuously waiting on her. I asked her to sit up in a chair this afternoon for as long as possible. Job ID: [id number]
[2019-01-16 05:38] LABS: Band 8 % (5-11); Hemoglobin 7.7 g/dL (12.0-16.0); Lymphocytes 15 % (21-51); MDiff Complete? YES; Mean Corpuscular HGB CONC 30.9 g/dL (32.0-36.0); Mean Corpuscular Hemoglobin 28.2 pg (27.0-31.0); Mean Corpuscular Volume 91.4 fL (78.0-98.0); Mean Platelet Volume 7.2 fL (7.4-10.4); Monocytes 8 % (0-10); Neutrophil 69 % (42-75); Platelet Count 471 thou/uL (130-400); Platelet Morphology Comment Appears Increased; RBC Distribution Width 15.8 % (11.5-14.5); Red Blood Cell (RBC) Count 2.71 mill/uL (4.20-5.40); White Blood Cell (WBC) Count 11.1 thou/uL (4.8-10.8)
[2019-01-16 05:45] LABS: ALT (SGPT) 56 U/L (8-55); AST (SGOT) 66 U/L (5-34); Albumin 2.6 g/dL (3.4-4.8); Alkaline Phosphatase 188 U/L (40-150); Anion Gap 11 mmol/L (10-20); BUN (Urea Nitrogen) 18 mg/dL (9.8-20.1); Bilirubin, Total 1.2 mg/dL (0.2-1.2); Calc. Creatinine Clearance 78 mL/min (70-130); Calcium 8.9 mg/dL (7.8-10.44); Carbon Dioxide 21 mmol/L (23-31); Chloride 106 mmol/L (98-107); Estimated GFR-MDRD 85; Globulin 4.5 g/dL (2.4-3.5); Glucose 79 mg/dL (80-115); Potassium 3.4 mmol/L (3.5-5.1); Protein, Total 7.1 g/dL (6.0-8.3); Sodium 135 mmol/L (136-145)
[2019-01-16] MEDS: Gabapentin 300 MG CAP PO SCH ×3 (08:32→19:55)
[2019-01-16] MEDS: Acetaminophen 500 MG TAB PO PRN ×2 (08:32→16:09)
[2019-01-16] MEDS: Lisinopril 20 MG TAB PO SCH ×2 (08:33→19:56)
[2019-01-16] MEDS: Zinc Sulfate 220 MG CAP PO SCH (08:33)
[2019-01-16] MEDS: Amlodipine 10 MG TAB PO SCH (08:33)
[2019-01-16] MEDS: cloNIDine 0.2 MG TAB PO SCH ×2 (08:34→19:58)
[2019-01-16] MEDS: Multivit, Chewable SF 1 TAB PO SCH (08:34)
[2019-01-16] MEDS: Ascorbic Acid 500 mg Chewable Tablet PO SCH (08:34)
--- NOTE | 2019-01-16 09:45 | PRG ---
DATE OF SERVICE: 01/16/2019 SUBJECTIVE: This morning, still pain, still short of breath. OBJECTIVE: VITAL SIGNS: Blood pressure 188/80, pulse 117, sats are 99% on 2L, temperature 98. GENERAL: Weak. CHEST: Decreased breath sounds. No wheezing. CARDIAC: Normal S1 and S2. No gallops. ABDOMEN: Soft. LABORATORY DATA: Albumin is 2.6. White count 11,000, H and H are 7 and 24, status post lap, status post placement of a drain in the area of a bile leak. PLAN: At this stage, continue supportive care. She has a drain in place. Control blood pressure. Pain relief. PT and nutrition as per Surgery. Job ID: [id number]
[2019-01-16] MEDS: Insulin Glargine 20 UNITS in Pre-Filled Syringe 1 EACH SC SCH (11:09)
[2019-01-16] MEDS: traMADol HCl 50 MG TAB PO PRN (12:44)
[2019-01-16] MEDS: HumaLOG 300 UNITS/3 ML VIAL SC PRN (12:45)
--- NOTE | 2019-01-16 14:37 | PDOC.GSPN ---
Surgery Progress Note: Subj - Subjective Patient reports: no new complaints, no bowel movement, tolerating a regular diet Surgery Progress Note: Obj - Vital signs Vital signs: Vital Signs - Most Recent Temp Pulse Resp BP Pulse Ox 99.0 F 104 H 25 H 121/73 97 01/16/19 11:20 01/16/19 12:49 01/16/19 12:49 01/16/19 11:20 01/16/19 11:20 - Physical Exam General: no distress Cardiovascular: regular rate and rhythm Respiratory: clear to auscultation Abdomen: soft, non tender Wound: healing well Surgery Progress Note: Results - Labs Result Diagrams: 01/16/19 04:43 01/16/19 04:43 Lab results: Laboratory Results - last 24 hr 01/16/19 01/16/19 01/16/19 04:43 04:43 05:34 WBC 11.1 H RBC 2.71 L Hgb 7.7 L Hct 24.8 L MCV 91.4 MCH 28.2 MCHC 30.9 L RDW 15.8 H Plt Count 471 H MPV 7.2 L Neutrophils % (Manual) 69 Band Neuts % (Manual) 8 Lymphocytes % (Manual) 15 L Monocytes % (Manual) 8 Plt Morphology Comment Appears Increased H Sodium 135 L Potassium 3.4 L Chloride 106 Carbon Dioxide 21 L Anion Gap 11 BUN 18 Creatinine 0.70 Estimated GFR (MDRD) 85 Glucose 79 L POC Glucose 78 Calcium 8.9 Total Bilirubin 1.2 AST 66 H ALT 56 H Alkaline Phosphatase 188 H Serum Total Protein 7.1 Albumin 2.6 L Globulin 4.5 H Albumin/Globulin Ratio 0.6 L 01/16/19 11:19 WBC RBC Hgb Hct MCV MCH MCHC RDW Plt Count MPV Neutrophils % (Manual) Band Neuts % (Manual) Lymphocytes % (Manual) Monocytes % (Manual) Plt Morphology Comment Sodium Potassium Chloride Carbon Dioxide Anion Gap BUN Creatinine Estimated GFR (MDRD) Glucose POC Glucose 160 H Calcium Total Bilirubin AST ALT Alkaline Phosphatase Serum Total Protein Albumin Globulin Albumin/Globulin Ratio Surgery Progress Note: A/P - Problem (1) Perforated duodenal ulcer with hemorrhage Current Visit: Yes Code(s): K26.6 - CHRONIC OR UNSP DUODENAL ULCER W BOTH HEMORRHAGE AND PERF Status: Acute - Plan Plan: status post gastrectomy -increase ambulation -drain output way down -correction placement -bilirubin normal
--- NOTE | 2019-01-16 15:45 | PDOC.PN ---
- Subjective Encounter Start Date: 01/16/19 Encounter Start Time: 13:00 Says she is feeling a little better. Feels like she is getting better every day. Ate half of lunch. - Objective Resuscitation Status - Order Detail: 12/24/18 21:39 Resuscitation Status Routine Resuscitation Status: FULL: Full Resuscitation Vital Signs & Weight: Vital Signs (12 hours) Temp Pulse Pulse Pulse Pulse Resp BP 01/16/19 15:30 101.0 F H 112 H 20 01/16/19 12:49 104 H 25 H 01/16/19 11:20 99.0 F 100 18 01/16/19 09:09 125 H 112 H 127 H 125 H 01/16/19 08:34 188/80 H 01/16/19 08:33 117 H 188/80 H 01/16/19 07:49 98.8 F 117 H 20 01/16/19 04:27 99.2 F 90 16 BP BP BP BP BP BP BP 01/16/19 15:30 167/77 H 01/16/19 12:49 01/16/19 11:20 121/73 01/16/19 09:09 176/76 H 181/78 H 151/68 H 176/76 H 181/78 H 151/68 H 01/16/19 08:34 01/16/19 08:33 01/16/19 07:49 177/80 H 188/80 H 01/16/19 04:27 146/74 H 146/74 H Pulse Ox Pulse Ox Pulse Ox Pulse Ox 01/16/19 15:30 94 L 01/16/19 12:49 01/16/19 11:20 97 01/16/19 09:09 93 L 96 93 L 01/16/19 08:34 01/16/19 08:33 01/16/19 07:49 99 01/16/19 04:27 98 Weight Admit Weight 125 lb 3.2 oz Weight 132 lb 8 oz Most Recent Monitor Data Heart Rate from ECG 95 NIBP 145/84 NIBP BP-Mean 104 Respiration from ECG 29 SpO2 99 I&O: 01/15/19 01/16/19 01/17/19 06:59 06:59 06:59 Intake Total 8525 750 480 Output Total 10 10 Balance 8515 740 480 Result Diagrams: 01/16/19 04:43 01/16/19 04:43 Additional Labs: Accuchecks 01/16/19 01/16/19 01/15/19 11:19 05:34 20:56 POC Glucose 160 H 78 136 H 01/15/19 16:09 POC Glucose 144 H Phys Exam - Physical Examination Constitutional: NAD Minimal left basilar rales. Mild tachypnea Cardiovascular: RRR, no significant murmur, no rub Mild tachycardia Gastrointestinal: soft, non-tender, no distention, positive bowel sounds Musculoskeletal: no edema Psychiatric: normal affect, A&O x 3 Skin: normal turgor Dx/Plan (1) Duodenal ulcer, perforated Code(s): K26.5 - CHRONIC OR UNSPECIFIED DUODENAL ULCER WITH PERFORATION Status : Acute Comment: s/p antrectomy, with duodenal stump leak postop, Dr. Morgan following, CT with persistent leak 01/10/19, CT guided percutaneous drain placement 01/11/19 (2) Anemia due to acute blood loss Code(s): D62 - ACUTE POSTHEMORRHAGIC ANEMIA Status: Acute Comment: s/p total 5 unit PRBC (3) Hypertensive urgency Code(s): I16.0 - HYPERTENSIVE URGENCY Status: Resolved Comment: improved (4) Pneumonia Code(s): J18.9 - PNEUMONIA, UNSPECIFIED ORGANISM Status: Resolved Qualifiers: Pneumonia type: due to methicillin-resistant Staphylococcus aureus (MRSA) Comment: including tracheobronchitis, on Linezolid and Zosyn since 01/04/2019, Dr. Wytat following (5) Abnormal LFTs Code(s): R94.5 - ABNORMAL RESULTS OF LIVER FUNCTION STUDIES Status: Acute Comment: due to billiary obstruction from periampullary swelling (6) Hypokalemia Code(s): E87.6 - HYPOKALEMIA Status: Acute Comment: repleted, need to recheck (7) Diabetes type 2, controlled Code(s): E11.9 - TYPE 2 DIABETES MELLITUS WITHOUT COMPLICATIONS Status: Chronic (8) Dyslipidemia Code(s): E78.5 - HYPERLIPIDEMIA, UNSPECIFIED Status: Chronic (9) HTN (hypertension) Code(s): I10 - ESSENTIAL (PRIMARY) HYPERTENSION Status: Chronic Qualifiers: Comment: labile control (10) Neuropathic pain Status: Chronic (11) Obesity (BMI 30.0-34.9) Code(s): E66.9 - OBESITY, UNSPECIFIED Status: Chronic (12) Restless leg syndrome Status: Chronic (13) Abdominal abscess Code(s): [id number] - Status: Acute Comment: S/P drain (14) Tachycardia Code(s): R00.0 - TACHYCARDIA, UNSPECIFIED Status: Acute (15) Atelectasis of left lung Code(s): J98.11 - ATELECTASIS Status: Acute - Plan * Improving a little daily. * Discussed with surgery. Patient severe disease and extensive inflammatory changes with her initial insult. Will take time for her to resolve all of that. * Continue to increase activity. * She is anemic, but does not have orthostatic vitals. * Continue to work on nutrition. * Continue to use IS.
[2019-01-16] MEDS: fentaNYL 75 mcg/hour Patch TD SCH (16:28)
--- NOTE | 2019-01-16 18:50 | EKG ---
Test Reason : Blood Pressure : / mmHG Vent. Rate : 102 BPM Atrial Rate : 102 BPM P-R Int : 122 ms QRS Dur : 084 ms QT Int : 334 ms P-R-T Axes : 025 -13 034 degrees QTc Int : 435 ms Sinus tachycardia Minimal voltage criteria for LVH, may be normal variant Possible Anterior infarct , age undetermined Abnormal ECG Confirmed by MONICA WRIGHT (2) on 01/16/2019 6:50:11 PM Referred By: Confirmed By:MONICA WRIGHT
[2019-01-17] MEDS: Acetaminophen 500 MG TAB PO PRN (01:20)
[2019-01-17 03:14] LABS: Band 13 % (5-11); Hemoglobin 7.6 g/dL (12.0-16.0); Lymphocytes 9 % (21-51); MDiff Complete? YES; Mean Corpuscular HGB CONC 32.1 g/dL (32.0-36.0); Mean Corpuscular Hemoglobin 28.9 pg (27.0-31.0); Mean Corpuscular Volume 89.9 fL (78.0-98.0); Monocytes 5 % (0-10); Neutrophil 72 % (42-75); Platelet Count 435 thou/uL (130-400); RBC Distribution Width 15.4 % (11.5-14.5); Red Blood Cell (RBC) Count 2.61 mill/uL (4.20-5.40); White Blood Cell (WBC) Count 8.8 thou/uL (4.8-10.8)
[2019-01-17] MEDS: Lisinopril 20 MG TAB PO SCH ×2 (08:27→20:30)
[2019-01-17] MEDS: cloNIDine 0.2 MG TAB PO SCH ×2 (08:28→20:30)
[2019-01-17] MEDS: Gabapentin 300 MG CAP PO SCH ×3 (08:28→20:31)
[2019-01-17] MEDS: Amlodipine 10 MG TAB PO SCH (08:28)
[2019-01-17] MEDS: Multivit, Chewable SF 1 TAB PO SCH (08:28)
[2019-01-17] MEDS: Ascorbic Acid 500 mg Chewable Tablet PO SCH (08:28)
[2019-01-17] MEDS: Zinc Sulfate 220 MG CAP PO SCH (08:29)
[2019-01-17] MEDS: Insulin Glargine 20 UNITS in Pre-Filled Syringe 1 EACH SC SCH (08:44)
[2019-01-17] MEDS: traMADol HCl 50 MG TAB PO PRN (08:44)
--- NOTE | 2019-01-17 09:22 | RAD ---
Frontal radiograph chest: 01/17/2019 COMPARISON: 01/15/2019 HISTORY: Shortness of breath FINDINGS: There is elevation of the right hemidiaphragm. Increased density in the right lung base is noted, which suggest right middle and/or right lower lobe consolidation/collapse and small volume right pleural fluid. Increased linear density noted in the left lung base suggesting volume loss/infiltrate. There has bee n no significant interval change when compared to the 01/15/2019 examination. IMPRESSION: Stable appearance of the chest as detailed above.
--- NOTE | 2019-01-17 09:23 | HP ---
SUBJECTIVE: A 63-year-old female, having significant pain, still short of breath. OBJECTIVE: VITAL SIGNS: resp 30, temperature 99, blood pressure 187/71. pulse 107 CHEST: No wheezing or crackles. Revealed decreased breath sounds. CARDIAC: Sinus tach. ABDOMEN: Soft. LABORATORY DATA: White count is 8000, H and H 7 and 23, platelet count 435, slight left shift. IMPRESSION: Status post laparotomy, respiratory failure, pneumonia, severe deconditioning. PLAN: An echo and chest x-ray are being ordered. Otherwise, continue supportive care. Further input from General Surgery. Job ID: [id number] [facility]
--- NOTE | 2019-01-17 13:14 | CT ---
CT PULMONARY ANGIOGRAM WITH IV CONTRAST AND 3D MIP RECONSTRUCTIONS: DATE: 01/17/2019. PROVIDED CLINICAL HISTORY: Chest pain. FINDINGS: There is no evidence for a central or segmental pulmonary embolus. Vascular calcification including coronary calcium is demonstrated. Moderate calcified stenosis at the origin of the left subclavian a rtery. There is elevation of the right hemidiaphragm with adjacent subsegmental atelectatic change at the ri t lung base. There is a moderate right pleural effusion. Scattered areas of subsegmental atelecta sis involving the remainder of ___ parenchymal bilaterally without evidence for a concerning parenchy mal opacity. The airway appears patent and of normal caliber. There is no evidence for pneumothorax. Partially visualized free intraperitoneal fluid about the right liver margin. The osseous structures demonstrate no concerning lytic or blastic lesions. IMPRESSION: 1. No evidence for central or segmental pulmonary embolus. 2. Vascular calcification including coronary calcium. 3. Moderate right pleural effusion. 4. Partially visualized free intraperitoneal fluid about the right hepatic margin. POS: OFF
--- NOTE | 2019-01-17 13:38 | CT ---
CT ABDOMEN AND PELVIS WITH IV CONTRAST: Multiple axial tomograms were obtained through the abdomen and pelvis with IV enhancement. Oral cont rast was administered. INDICATION: Evaluate right upper quadrant fluid collection. FINDINGS: Comparison is made to CT abdomen and pelvis 01/10/2019. FINDINGS: Images through the lung bases again show right pleural effusion as well as right basilar atelectasis. The size of this right effusion has increased at least since 01/10/2019. The dense right basilar ate lectasis with air bronchograms has also progressed since the prior study. Fluid under the right hemidiaphragm and surrounding the lateral margin of the right liver is again se en, not significantly changed in size. The fluid air collection seen at the site of the duodenal stump that has been previously described martinez s been previously described is again noted. There is a drainage catheter coiled within this collecti on. The size of the collection has not significantly changed other than there is increased air densi ty within the collection when compared to the recent exam. Pancreas unremarkable. Liver and spleen otherwise unremarkable. The small bowel loops are normal caliber. Images through the pelvis are unremarkable. Kidneys unrem arkable. Aorta and retroperitoneum are unremarkable. IMPRESSION: 1. Mildly enlarging right pleural effusion with increasing right basilar atelectasis with air bronch ograms. 2. subdiaphragmatic fluid collection on the right extending along the lateral margin of the right li shannon is unchanged. 3. The fluid gas collection in the region of the duodenal stump with drainage catheter seen through this collection is again noted. Overall size has not significantly changed, although there is increa sed gas within this collection today. POS: [facility]
--- NOTE | 2019-01-17 14:34 | PDOC.GSPN ---
Surgery Progress Note: Subj - Subjective Narrative: Worsening tachycardia this am. More tachypneic. Not complaining of abdominal pain. Complaining of upper central chest pain Surgery Progress Note: Obj - Vital signs Vital signs: Vital Signs - Most Recent Temp Pulse Resp BP Pulse Ox 99.9 F H 116 H 16 156/76 H 96 01/17/19 11:16 01/17/19 11:16 01/17/19 11:16 01/17/19 11:16 01/17/19 11:16 - Physical Exam General: no distress Cardiovascular: other (Tachy) Respiratory: coarse breath sounds Abdomen: soft, non tender, nondistended Wound: other (Well healed) Surgery Progress Note: Results - Labs Result Diagrams: 01/17/19 02:45 01/16/19 04:43 Lab results: Laboratory Results - last 24 hr 01/17/19 01/17/19 01/17/19 02:45 02:45 06:08 WBC 8.8 RBC 2.61 L Hgb 7.6 L Hct 23.5 L MCV 89.9 MCH 28.9 MCHC 32.1 RDW 15.4 H Plt Count 435 H MPV 7.0 L Neutrophils % (Manual) 72 Band Neuts % (Manual) 13 H Lymphocytes % (Manual) 9 L Monocytes % (Manual) 5 Basophils % (Manual) 1 D-Dimer 11.03 H POC Glucose 118 H 01/17/19 10:24 WBC RBC Hgb Hct MCV MCH MCHC RDW Plt Count MPV Neutrophils % (Manual) Band Neuts % (Manual) Lymphocytes % (Manual) Monocytes % (Manual) Basophils % (Manual) D-Dimer POC Glucose 137 H Surgery Progress Note: A/P - Problem (1) Perforated duodenal ulcer with hemorrhage Current Visit: Yes Code(s): K26.6 - CHRONIC OR UNSP DUODENAL ULCER W BOTH HEMORRHAGE AND PERF Status: Acute Assessment and Plan: Concerning tachycardia this am. - Plan Plan: CT chest shows pleual effusion without PE. CT shows right pleural effusion, unchanged hepatic fluid collection and unchanged fluid around the duodenal stump. (The hepatic collection was already accessed and found to be hematoma. Drain in good position in area of duodenal stump) -I would expect more of a fluid collection around the duodenal stump if there was continued high ouput leakage. -LFT's have almost normalized -Leukocytosis resolved -Deconditioning
[2019-01-17] MEDS: Sodium Chloride 0.9% 1,000 ML IV SCH (14:54)
[2019-01-17] MEDS ORDERED: Iopamidol 370 76% 100 ML VIAL ONE (16:12)
--- NOTE | 2019-01-17 16:14 | PDOC.PN ---
- Subjective Encounter Start Date: 01/17/19 Encounter Start Time: 14:00 She is worn out from getting up a little bit today. Still feels SOB and has some pressure on her chest. - Objective Resuscitation Status - Order Detail: 12/24/18 21:39 Resuscitation Status Routine Resuscitation Status: FULL: Full Resuscitation Vital Signs & Weight: Vital Signs (12 hours) Temp Pulse Resp BP BP Pulse Ox 01/17/19 15:47 124 H 01/17/19 15:06 99.8 F H 123 H 18 168/80 H 96 01/17/19 11:16 99.9 F H 116 H 16 156/76 H 96 01/17/19 09:20 114 H 18 01/17/19 08:28 127 H 183/71 H 01/17/19 08:27 183/71 H 01/17/19 08:09 2 L 01/17/19 07:46 99.3 F 126 H 18 183/71 H 95 01/17/19 05:24 99.2 F Weight Admit Weight 125 lb 3.2 oz Weight 130 lb 1.6 oz Most Recent Monitor Data Heart Rate from ECG 95 NIBP 145/84 NIBP BP-Mean 104 Respiration from ECG 29 SpO2 99 I&O: 01/16/19 01/17/19 01/18/19 06:59 06:59 06:59 Intake Total 750 1612 Output Total 10 358 Balance 740 1254 Result Diagrams: 01/17/19 02:45 01/16/19 04:43 Additional Labs: Accuchecks 01/17/19 01/17/19 01/17/19 10:24 06:08 01:31 POC Glucose 137 H 118 H 103 01/16/19 01/16/19 20:09 15:52 POC Glucose 127 H 107 Phys Exam - Physical Examination Constitutional: NAD Ill appearing. Respiratory: no wheezing, no rales, no rhonchi Diminished, tachypneic Cardiovascular: RRR, no significant murmur Tachy Gastrointestinal: soft, non-tender, no distention, positive bowel sounds Musculoskeletal: no edema Neurological: non-focal Psychiatric: normal affect, A&O x 3 Dx/Plan (1) Duodenal ulcer, perforated Code(s): K26.5 - CHRONIC OR UNSPECIFIED DUODENAL ULCER WITH PERFORATION Status : Acute Comment: s/p antrectomy, with duodenal stump leak postop, Dr. Morgan following, CT with persistent leak 01/10/19, CT guided percutaneous drain placement 01/11/19 (2) Anemia due to acute blood loss Code(s): D62 - ACUTE POSTHEMORRHAGIC ANEMIA Status: Acute Comment: s/p total 5 unit PRBC (3) Hypertensive urgency Code(s): I16.0 - HYPERTENSIVE URGENCY Status: Resolved Comment: improved (4) Pneumonia Code(s): J18.9 - PNEUMONIA, UNSPECIFIED ORGANISM Status: Resolved Qualifiers: Pneumonia type: due to methicillin-resistant Staphylococcus aureus (MRSA) Comment: including tracheobronchitis, on Linezolid and Zosyn since 01/04/2019, Dr. Wyatt following (5) Abnormal LFTs Code(s): R94.5 - ABNORMAL RESULTS OF LIVER FUNCTION STUDIES Status: Acute Comment: due to billiary obstruction from periampullary swelling (6) Hypokalemia Code(s): E87.6 - HYPOKALEMIA Status: Acute Comment: repleted, need to recheck (7) Diabetes type 2, controlled Code(s): E11.9 - TYPE 2 DIABETES MELLITUS WITHOUT COMPLICATIONS Status: Chronic (8) Dyslipidemia Code(s): E78.5 - HYPERLIPIDEMIA, UNSPECIFIED Status: Chronic (9) HTN (hypertension) Code(s): I10 - ESSENTIAL (PRIMARY) HYPERTENSION Status: Chronic Qualifiers: Comment: labile control (10) Neuropathic pain Status: Chronic (11) Obesity (BMI 30.0-34.9) Code(s): E66.9 - OBESITY, UNSPECIFIED Status: Chronic (12) Restless leg syndrome Status: Chronic (13) Abdominal abscess Code(s): [id number] - Status: Acute Comment: S/P drain (14) Tachycardia Code(s): R00.0 - TACHYCARDIA, UNSPECIFIED Status: Acute (15) Atelectasis of left lung Code(s): J98.11 - ATELECTASIS Status: Acute (16) Pleural effusion Code(s): J90 - PLEURAL EFFUSION, NOT ELSEWHERE CLASSIFIED Status: Acute Comment: Right - Plan * Still tachycardic and tachypneic. * Has a significant Right pleural effusion. * WBC normalized. * LFT's normalized. * CTA chest and CT abdomen and pelvis reviewed. * No new findings. Still has the two fluid collections in abdomen. One is hematoma and the other is post-surgical and has drain in place with low output. * Will give some IVF in light of modest po intake and tachycardia. * Will recheck labs in am.
[2019-01-17] MEDS: Enoxaparin Sodium 40 MG/0.4 ML SYRINGE SC SCH (20:35)
[2019-01-18] MEDS: Acetaminophen 500 MG TAB PO PRN ×3 (01:37→20:09)
[2019-01-18] MEDS: Sodium Chloride 0.9% 1,000 ML IV SCH ×2 (04:25→16:13)
[2019-01-18 05:49] LABS: Anion Gap 12 mmol/L (10-20); BUN (Urea Nitrogen) 6 mg/dL (9.8-20.1); Calc. Creatinine Clearance 103 mL/min (70-130); Carbon Dioxide 22 mmol/L (23-31); Chloride 108 mmol/L (98-107); Estimated GFR-MDRD Greater than 90; Glucose 71 mg/dL (80-115); Sodium 139 mmol/L (136-145)
[2019-01-18 06:01] LABS: Potassium 2.8 mmol/L (3.5-5.1)
[2019-01-18 06:15] LABS: #Monocytes 0.6 thou/uL (0.11-0.59); #Neutrophils 7.6 thou/uL (1.40-6.50); %Basophils 0.2 % (0.0-1.0); %Eosinophils 0.5 % (0.0-10.0); %Lymphocytes 10.4 % (21.0-51.0); %Monocytes 6.9 % (0.0-10.0); %Neutrophils 82.1 % (42.0-75.0); Hemoglobin 6.2 g/dL (12.0-16.0); Mean Corpuscular HGB CONC 31.9 g/dL (32.0-36.0); Mean Corpuscular Hemoglobin 28.2 pg (27.0-31.0); Mean Corpuscular Volume 88.5 fL (78.0-98.0); Mean Platelet Volume 7.6 fL (7.4-10.4); Platelet Count 413 thou/uL (130-400); RBC Distribution Width 15.7 % (11.5-14.5); Red Blood Cell (RBC) Count 2.19 mill/uL (4.20-5.40); White Blood Cell (WBC) Count 9.3 thou/uL (4.8-10.8)
[2019-01-18] MEDS ORDERED: Potassium Chloride 20 MEQ TAB PO SCH ×2 (06:45→13:00)
[2019-01-18] MEDS ORDERED: Magnesium 2 GM/50 ML 2 GM in Premix Bag 1 BAG IVPB SCH (07:30)
[2019-01-18] MEDS ORDERED: Magnesium Sulfate 2 GM in Sodium Chloride 0.9% 100 ML IVPB SCH (07:30)
--- NOTE | 2019-01-18 09:17 | PRG ---
DATE OF SERVICE: 01/18/2019 SUBJECTIVE: Maisha Qureshi this morning is still having pain. OBJECTIVE: VITAL SIGNS: Saturations are 94% on 3 L, temperature is 98, pulse is 109, blood pressure is 170/82. CHEST: Decreased breath sounds. No wheezing. CARDIAC: Normal S1 and S2. No gallops. ABDOMEN: No mass. ASSESSMENT: 1. Status post laparotomy, perforated duodenal bleeding ulcer. 2. Severe deconditioning, elevated right hemidiaphragm. 3. Pleural effusion. PLAN: Thoracentesis will be done on the right side to release some of the pleural effusion. Otherwise supportive care, PT. We will follow. Job ID: [id number]
[2019-01-18] MEDS: K-Phos Neutral 250 MG TAB PO SCH ×3 (09:28→16:00)
[2019-01-18] MEDS: Multivit, Chewable SF 1 TAB PO SCH (09:29)
[2019-01-18] MEDS: Zinc Sulfate 220 MG CAP PO SCH (09:29)
[2019-01-18] MEDS: Ascorbic Acid 500 mg Chewable Tablet PO SCH (09:29)
[2019-01-18] MEDS: cloNIDine 0.2 MG TAB PO SCH ×2 (09:29→20:09)
[2019-01-18] MEDS: Gabapentin 300 MG CAP PO SCH ×3 (09:29→20:10)
[2019-01-18] MEDS: Insulin Glargine 20 UNITS in Pre-Filled Syringe 1 EACH SC SCH (09:30)
[2019-01-18] MEDS: Amlodipine 10 MG TAB PO SCH (09:30)
[2019-01-18] MEDS: Lisinopril 20 MG TAB PO SCH ×2 (09:30→20:10)
--- NOTE | 2019-01-18 09:54 | PRG ---
DATE OF SERVICE: 01/18/2019 SUBJECTIVE: Ms. Qureshi has no complaints this morning. She appears to be less tachypneic and tachycardic. OBJECTIVE: VITAL SIGNS: Her pulse is 109, blood pressure is 172/82, she is afebrile, her respirations are 14, and she is 94% on 3 L. ELEANOR drain put out [address] scan yesterday revealed no change in the fluid collections in her abdomen, right pleural effusion. No PE. ABDOMEN: Soft, nontender, nondistended. She has a midline wound that is well healed. ASSESSMENT: Status post gastrectomy, duodenal stump leak that is slowly improving, drain output much less. No significant fluid collection in the abdomen. She does have a hematoma along the right liver edge. Previous perc drain showed only hematoma that drain has been removed. She has new pleural effusion on the right. Dr. Wyatt has seen her for that. She is still not taking in much. She feels too tired to eat. PLAN: TPN, electrolyte replacements. If reading does not improve in the next few days, will have GI place Dobhoff tube through her efferent limb for long-term feeds. Job ID: [id number]
[2019-01-18 10:10] LABS: INR-International Normal Ratio 1.3; PTT 44.2 SEC (22.9-36.1); Prothrombin Time 15.8 SEC (12.0-14.7)
--- NOTE | 2019-01-18 10:13 | OP ---
DATE OF PROCEDURE: 01/18/2019 PROCEDURE: Thoracentesis. INDICATION: Pleural effusion. DESCRIPTION OF PROCEDURE: After informed consent, the right posterior thorax was cleaned with chlorhexidine and 1% Xylocaine was infiltrated into the 8th intercostal space in the midscapular line. Pleural cavity was entered. 20 mL of sanguinous fluid was removed. Thereafter, using an 8-[place] catheter, a total of 350 mL was removed without any difficulty. The patient otherwise tolerated the procedure well. Pleural effusion sent for appropriate studies including culture. Job ID: [id number]
[2019-01-18 10:31] LABS: ALT (SGPT) 91 U/L (8-55); AST (SGOT) 121 U/L (5-34); Albumin 2.7 g/dL (3.4-4.8); Alkaline Phosphatase 240 U/L (40-150); Anion Gap 15 mmol/L (10-20); BUN (Urea Nitrogen) 6 mg/dL (9.8-20.1); Calc. Creatinine Clearance 104 mL/min (70-130); Calcium 8.2 mg/dL (7.8-10.44); Carbon Dioxide 18 mmol/L (23-31); Cardiac Risk 5.2 (Less than 4.5); Chloride 106 mmol/L (98-107); Cholesterol 98 mg/dl (< 200 Desired); Estimated GFR-MDRD Greater than 90; Globulin 4.5 g/dL (2.4-3.5); Glucose 85 mg/dL (80-115); HDL Cholesterol 19 mg/dL (>60 Neg Risk); LDL Cholesterol, Calculated 53 mg/dL; Magnesium 1.1 mg/dL (1.6-2.6); Protein, Total 7.2 g/dL (6.0-8.3); Sodium 136 mmol/L (136-145); Triglycerides 131 mg/dL (Less than 150)
[2019-01-18 10:35] LABS: Phosphorus 1.6 mg/dL (2.3-4.7); Potassium 2.8 mmol/L (3.5-5.1)
--- NOTE | 2019-01-18 11:05 | RAD ---
CHEST ONE VIEW: HISTORY: Status post thoracentesis. COMPARISON: 01/17/2019 FINDINGS: Minimal decrease in the right pleural effusion. Stable patchy linear and parenchymal changes in both bases, probably representing some subsegmental atelectasis. No evidence for pneumothorax. Heart si ze is normal. IMPRESSION: 1. Slight decrease in the right pleural effusion. 2. Stable linear bibasilar parenchymal changes. Continue short-term followup for clearing or stabil ity. POS: C
[2019-01-18 11:20] LABS: Fluid, Triglycerides 49 mg/dL (Not Available); Pleural Fluid, Amylase Less than 30 U/L (Not Available); Pleural Fluid, Glucose 73 mg/dL; Pleural Fluid, LDH 759 U/L (Not Available); Pleural Fluid, Protein 3.7 g/dL
[2019-01-18 11:40] LABS: BF Color Red; Body Fluid Source Thoracentesis Fluid; Clarity Cloudy/Turbid (Clear); RBC Background Count 0.001; Tube # EDTA
[2019-01-18 11:41] LABS: RBC Count-Automated 135000 /cumm; WBC/NonHematic-Auto 2770 /cumm
--- NOTE | 2019-01-18 11:43 | SPC ---
Sonographic guided left upper extremity PICC placement HISTORY: Malnutrition. Need for total parenteral nutrition. FINDINGS: After explaining the procedure and answering all questions, left upper extremity and the ex ternal portion of the IVC catheter were prepped and draped in usual sterile fashion. Sonographic evaluation confirmed the left upper extremity midline within the brachial vein. The left upper extremity midline was used to exchange, over a wire, for a 5 Czech dual-lumen PICC. C atheter tip was placed at the cavoatrial junction. The catheter was secured externally and flushed. Patient tolerated the procedure well and was returned in unchanged condition. Fluoroscopy time 0 seconds. IMPRESSION: Left upper extremity PICC is ready for use.
--- NOTE | 2019-01-18 12:43 | PDOC.PN ---
- Subjective Encounter Start Date: 01/18/19 Encounter Start Time: 12:00 Denies any specific complaints. Not eating much, but thinks she might be able to eat a little. - Objective Resuscitation Status - Order Detail: 12/24/18 21:39 Resuscitation Status Routine Resuscitation Status: FULL: Full Resuscitation Vital Signs & Weight: Vital Signs (12 hours) Temp Pulse Resp BP BP BP Pulse Ox 01/18/19 09:30 109 H 172/82 H 01/18/19 09:29 172/82 H 01/18/19 08:55 94 L 01/18/19 07:42 98.9 F 109 H 14 172/82 H 94 L 01/18/19 06:58 112 H 34 H 01/18/19 04:00 99 F 102 H 18 148/73 H 96 Weight Admit Weight 125 lb 3.2 oz Weight 133 lb 7 oz Most Recent Monitor Data Heart Rate from ECG 95 NIBP 145/84 NIBP BP-Mean 104 Respiration from ECG 29 SpO2 99 I&O: 01/17/19 01/18/19 01/19/19 06:59 06:59 06:59 Intake Total 1612 2150 Output Total 358 5 Balance 1254 2145 Result Diagrams: 01/18/19 05:08 01/18/19 09:53 Additional Labs: Accuchecks 01/17/19 01/17/19 01/17/19 23:53 20:14 16:20 POC Glucose 92 85 76 Phys Exam - Physical Examination Ill appearing. Pale. Frail. Respiratory: no wheezing, no rales, no rhonchi, clear to auscultation bilateral Cardiovascular: RRR, no significant murmur Tachy. Gastrointestinal: soft, non-tender, no distention Musculoskeletal: no edema Neurological: non-focal Psychiatric: normal affect, A&O x 3 Deviation from normal: Just a little lethargic. Dx/Plan (1) Duodenal ulcer, perforated Code(s): K26.5 - CHRONIC OR UNSPECIFIED DUODENAL ULCER WITH PERFORATION Status : Acute Comment: s/p antrectomy, with duodenal stump leak postop, Dr. Morgan following, CT with persistent leak 01/10/19, CT guided percutaneous drain placement 01/11/19 (2) Anemia due to acute blood loss Code(s): D62 - ACUTE POSTHEMORRHAGIC ANEMIA Status: Acute Comment: s/p total 5 unit PRBC (3) Hypertensive urgency Code(s): I16.0 - HYPERTENSIVE URGENCY Status: Resolved Comment: improved (4) Pneumonia Code(s): J18.9 - PNEUMONIA, UNSPECIFIED ORGANISM Status: Resolved Qualifiers: Pneumonia type: due to methicillin-resistant Staphylococcus aureus (MRSA) Comment: including tracheobronchitis, on Linezolid and Zosyn since 01/04/2019, Dr. Wyatt following (5) Abnormal LFTs Code(s): R94.5 - ABNORMAL RESULTS OF LIVER FUNCTION STUDIES Status: Acute Comment: due to billiary obstruction from periampullary swelling (6) Hypokalemia Code(s): E87.6 - HYPOKALEMIA Status: Acute Comment: repleted, need to recheck (7) Diabetes type 2, controlled Code(s): E11.9 - TYPE 2 DIABETES MELLITUS WITHOUT COMPLICATIONS Status: Chronic (8) Dyslipidemia Code(s): E78.5 - HYPERLIPIDEMIA, UNSPECIFIED Status: Chronic (9) HTN (hypertension) Code(s): I10 - ESSENTIAL (PRIMARY) HYPERTENSION Status: Chronic Qualifiers: Comment: labile control (10) Neuropathic pain Status: Chronic (11) Obesity (BMI 30.0-34.9) Code(s): E66.9 - OBESITY, UNSPECIFIED Status: Chronic (12) Restless leg syndrome Status: Chronic (13) Abdominal abscess Code(s): QVM5574 - Status: Acute Comment: S/P drain. Repeat CT 01/17 with no change in the size of the fluid collection. Drain still well positioned. (14) Tachycardia Code(s): R00.0 - TACHYCARDIA, UNSPECIFIED Status: Acute (15) Atelectasis of left lung Code(s): J98.11 - ATELECTASIS Status: Acute (16) Pleural effusion Code(s): J90 - PLEURAL EFFUSION, NOT ELSEWHERE CLASSIFIED Status: Acute Comment: Right. Thoracentesis 01/18. (17) Perforated duodenal ulcer with hemorrhage Code(s): K26.6 - CHRONIC OR UNSP DUODENAL ULCER W BOTH HEMORRHAGE AND PERF Status: Acute Comment: required surgical repair this admission (18) S/P bypass gastrojejunostomy Code(s): Z98.0 - INTESTINAL BYPASS AND ANASTOMOSIS STATUS Status: Acute Comment: s/p re exploration of abdomen and wash out 12/29/18 (19) Transaminitis Code(s): R74.0 - NONSPEC ELEV OF LEVELS OF TRANSAMNS & LACTIC ACID DEHYDRGNSE Status: Acute (20) PUD (peptic ulcer disease) Code(s): K27.9 - PEPTIC ULC, SITE UNSP, UNSP AC OR CHR, W/O HEMOR OR PERF Status: Chronic (21) Acute respiratory failure Code(s): J96.00 - ACUTE RESPIRATORY FAILURE, UNSP W HYPOXIA OR HYPERCAPNIA Status: Resolved (22) Hypomagnesemia Code(s): E83.42 - HYPOMAGNESEMIA Status: Resolved (23) Hypophosphatemia Code(s): E83.39 - OTHER DISORDERS OF PHOSPHORUS METABOLISM Status: Resolved - Plan * Low K, Mg, Phos. Replacing all. * Given fluids overnight. Thinks she feels a little better. * Discussed with surg. * PICC line placed today. Start TPN. * Transfuse for anemia. May improve the tachycardia. * Pleural effusion tapped today. Studies still pending. Initially does not look infected.
[2019-01-18] MEDS: traMADol HCl 50 MG TAB PO PRN (13:02)
[2019-01-18 14:16] LABS: BF Segmented Neutrophils 57 %; Cell Count Non Hematic 40 %; Lymphocytes 3 %
[2019-01-18] MEDS: SODIUM ACETATE IV SCH (16:00)
[2019-01-18] MEDS: [UNRECOGNIZED DRUG - OTHER] IV SCH (16:00)
[2019-01-18] MEDS: SODIUM CHLORIDE IV SCH (16:00)
[2019-01-18] MEDS: FAT EMULSION IV SCH (16:00)
[2019-01-18] MEDS: Enoxaparin Sodium 40 MG/0.4 ML SYRINGE SC SCH (20:10)
[2019-01-18] MEDS: HumaLOG 300 UNITS/3 ML VIAL SC PRN (21:40)
[2019-01-19] MEDS: traMADol HCl 50 MG TAB PO PRN ×2 (00:11→08:16)
[2019-01-19] MEDS ORDERED: Morphine 2 MG/ML SYRINGE SLOW IVP SCH (01:30)
[2019-01-19] MEDS: Acetaminophen 500 MG TAB PO PRN (02:08)
[2019-01-19 05:52] LABS: #Lymphocytes 0.6 thou/uL (1.20-3.40); #Monocytes 0.5 thou/uL (0.11-0.59); %Eosinophils 0.3 % (0.0-10.0); %Lymphocytes 8.5 % (21.0-51.0); %Neutrophils 84.2 % (42.0-75.0); Hemoglobin 8.3 g/dL (12.0-16.0); Mean Corpuscular HGB CONC 31.7 g/dL (32.0-36.0); Mean Corpuscular Volume 88.2 fL (78.0-98.0); Mean Platelet Volume 7.4 fL (7.4-10.4); Platelet Count 442 thou/uL (130-400); Red Blood Cell (RBC) Count 2.97 mill/uL (4.20-5.40); White Blood Cell (WBC) Count 7.2 thou/uL (4.8-10.8)
[2019-01-19 06:11] LABS: Anion Gap 11 mmol/L (10-20); BUN (Urea Nitrogen) 10 mg/dL (9.8-20.1); Calc. Creatinine Clearance 93 mL/min (70-130); Calcium 7.9 mg/dL (7.8-10.44); Carbon Dioxide 22 mmol/L (23-31); Chloride 107 mmol/L (98-107); Estimated GFR-MDRD Greater than 90; Glucose 184 mg/dL (80-115); Magnesium 1.3 mg/dL (1.6-2.6); Phosphorus 2.3 mg/dL (2.3-4.7); Potassium 2.7 mmol/L (3.5-5.1); Sodium 137 mmol/L (136-145); Triglycerides 117 mg/dL (Less than 150)
[2019-01-19] MEDS: HumaLOG 300 UNITS/3 ML VIAL SC PRN ×2 (06:27→17:58)
[2019-01-19] MEDS: Sodium Chloride 0.9% 1,000 ML IV SCH ×2 (06:28→19:32)
[2019-01-19] MEDS ORDERED: Potassium Chloride 40 MEQ in Premix Bag 1 BAG IVPB SCH (07:00)
[2019-01-19] MEDS ORDERED: Magnesium 2 GM/50 ML 2 GM in Premix Bag 1 BAG IVPB SCH (07:00)
[2019-01-19] MEDS: K-Phos Neutral 250 MG TAB PO SCH ×4 (08:15→19:32)
[2019-01-19] MEDS: Amlodipine 10 MG TAB PO SCH ×2 (08:15→10:24)
[2019-01-19] MEDS: cloNIDine 0.2 MG TAB PO SCH ×2 (08:15→21:28)
[2019-01-19] MEDS: Multivit, Chewable SF 1 TAB PO SCH ×2 (08:16→10:26)
[2019-01-19] MEDS: Zinc Sulfate 220 MG CAP PO SCH (08:17)
[2019-01-19] MEDS: Gabapentin 300 MG CAP PO SCH ×3 (08:17→21:28)
[2019-01-19] MEDS: Lisinopril 20 MG TAB PO SCH ×2 (08:18→21:28)
[2019-01-19] MEDS: Ascorbic Acid 500 mg Chewable Tablet PO SCH ×2 (08:18→10:26)
[2019-01-19] MEDS: Insulin Glargine 20 UNITS in Pre-Filled Syringe 1 EACH SC SCH (08:35)
[2019-01-19 09:12] LABS: Actual Bicarbonate (HCO3a) 21.5 mEq/L (22-28); Base Excess (BEa) -1.8 mEq/L (-2.0 to +3.0); CO2 Tension 31.1 mmHg (35.0-45.0); Calcium, Ionized 1.15 mmol/L (1.12-1.30); Carboxyhemoglobin (COHb) 0.3 gm% (0.0-3.0); Hemoglobin (Hb) 10.3 g/dL (12.0-16.0); O2 Tension (PaO2) 150.9 mmHg (> 80.0); Potassium - ABG Lab 2.49 mmol/L (3.70-5.30); pH, Arterial 7.46 (7.35-7.45)
[2019-01-19 09:14] LABS: ALV-art Gradient 523.225 (0-20); Puncture Site LR
--- NOTE | 2019-01-19 09:26 | PRG ---
DATE OF SERVICE: 01/19/2019 SUBJECTIVE: Maisha Qureshi underwent a thoracentesis yesterday 350 mL of bloody effusion removed, which is an exudate. Still having difficulty breathing. She is still coughing. OBJECTIVE: VITAL SIGNS: Saturations are 95% on room air, blood pressure 170/74 , temperature 98.4. CHEST: Decreased breath sounds. No wheezing. CARDIAC: Normal S1 and S2. No gallops. ABDOMEN: No masses. LABORATORY STUDIES: Lytes are normal. White count 12,000_ ASSESSMENT AND PLAN: Respiratory failure, status post laparotomy. PLAN: I would direct to her present treatment. Continue supportive care. We will follow. Job ID: [id number] MTDD
--- NOTE | 2019-01-19 10:08 | RAD ---
CHEST 1 VIEW: HISTORY: Congestive heart failure. COMPARISON: 01/18/2019. FINDINGS: Stable pleural and parenchymal opacity changes in the right lower chest and minimal linear parenchyma l changes in the left base. Left PICC line in place. Mild vascular congestion. IMPRESSION: Overall stable chest. Continued short-term followup. POS: TPC
--- NOTE | 2019-01-19 10:08 | PRG ---
DATE OF SERVICE: 01/19/2019 SUBJECTIVE: Kiera suddenly became more short of breath while I was in the room. A code [place] was called in. She is clearly struggling to breathe, but once again, sats are 96% on nasal O2. Clearly does not much significant wheezing. Emergency blood gases showed a pO2 of 150, pCO2 of 31%, pH 7.46, on non-rebreather. This morning, as noted, lab was remarkable only for potassium. There is no left shift. She has a drain in abdomen, which is apparently draining what looks like maybe some fecal matter. OBJECTIVE: CHEST: Otherwise decreased breath sounds. No significant wheezing. CARDIAC: Sinus tach. ABDOMEN: Soft. IMPRESSION: 1. The patient now in respiratory distress, etiology unclear. CT chest yesterday showed no evidence of pulmonary emboli. 2. Chronic pain. 3. Status post lap for bleeding ulcer. 4. We will notify General Surgery about the transfer. I would hold fentanyl. Continue neb treatments, chest x-ray, PT, supportive care. 5. She may need surgical intervention. One-half hour of critical time. Job ID: [id number]
[2019-01-19] MEDS: SODIUM ACETATE IV SCH (15:21)
[2019-01-19] MEDS: FAT EMULSION IV SCH (15:21)
[2019-01-19] MEDS: SODIUM CHLORIDE IV SCH (15:21)
[2019-01-19] MEDS: [UNRECOGNIZED DRUG - OTHER] IV SCH (15:21)
--- NOTE | 2019-01-19 16:38 | PDOC.PN ---
- Subjective Encounter Start Date: 01/19/19 Encounter Start Time: 09:30 Subjective: pt was found to be tachypenic and a code green was called - Objective Resuscitation Status - Order Detail: 12/24/18 21:39 Resuscitation Status Routine Resuscitation Status: FULL: Full Resuscitation Vital Signs & Weight: Vital Signs (12 hours) Temp Pulse Resp BP BP Pulse Ox 01/19/19 13:26 106 H 23 H 99 01/19/19 13:25 106 H 21 H 99 01/19/19 12:00 98.8 F 01/19/19 10:34 102 H 13 100 01/19/19 10:00 98.8 F 100 01/19/19 09:20 114 H 43 H 98 01/19/19 08:18 170/74 H 01/19/19 08:16 92 L 01/19/19 08:15 170/74 H 01/19/19 07:58 99.3 F 105 H 18 170/74 H 94 L 01/19/19 07:05 104 H 28 H 01/19/19 04:34 99.0 F 106 H 20 158/74 H 93 L Weight Admit Weight 125 lb 3.2 oz Weight 131 lb 7 oz Most Recent Monitor Data Heart Rate from ECG 109 NIBP 147/75 NIBP BP-Mean 99 Respiration from ECG 25 SpO2 98 I&O: 01/18/19 01/19/19 01/20/19 06:59 06:59 06:59 Intake Total 2150 2450 100 Output Total 5 6 Balance 2145 2444 100 Result Diagrams: 01/19/19 05:30 01/19/19 05:30 Additional Labs: Accuchecks 01/19/19 01/19/19 01/18/19 09:10 00:18 21:08 POC Glucose 249 H 140 H 219 H 01/18/19 16:39 POC Glucose 121 H Phys Exam - Physical Examination Neck: no nodes, no JVD, supple, full ROM Respiratory: no wheezing, no rales, no rhonchi, wheezing present, clear to auscultation bilateral Cardiovascular: RRR, no significant murmur, no rub, gallop, irregular Gastrointestinal: soft, non-tender, no distention, positive bowel sounds Dx/Plan (1) Acute respiratory failure Code(s): J96.00 - ACUTE RESPIRATORY FAILURE, UNSP W HYPOXIA OR HYPERCAPNIA Status: Resolved (2) Anemia due to acute blood loss Code(s): D62 - ACUTE POSTHEMORRHAGIC ANEMIA Status: Acute Comment: s/p total 5 unit PRBC (3) Perforated duodenal ulcer with hemorrhage Code(s): K26.6 - CHRONIC OR UNSP DUODENAL ULCER W BOTH HEMORRHAGE AND PERF Status: Acute Comment: required surgical repair this admission (4) S/P bypass gastrojejunostomy Code(s): Z98.0 - INTESTINAL BYPASS AND ANASTOMOSIS STATUS Status: Acute Comment: s/p re exploration of abdomen and wash out 12/29/18 (5) Upper GI bleed Code(s): K92.2 - GASTROINTESTINAL HEMORRHAGE, UNSPECIFIED Status: Resolved (6) Diabetes type 2, controlled Code(s): E11.9 - TYPE 2 DIABETES MELLITUS WITHOUT COMPLICATIONS Status: Chronic (7) HTN (hypertension) Code(s): I10 - ESSENTIAL (PRIMARY) HYPERTENSION Status: Chronic Qualifiers: Comment: labile control (8) Obesity (BMI 30.0-34.9) Code(s): E66.9 - OBESITY, UNSPECIFIED Status: Chronic - Plan pt very tachypenic, pt taken to ccu and will be put on bipap -: pt off abx, has been on zyvox for MRSA in bronch washing -: leukocytosis has improved, pt afebrile -: pt on tpn. Hh low stable, will tranfuse as needed. * . Review of Systems - Review of Systems Respiratory: Shortness of Breath. negative: Cough, Dry, Hemoptysis, SOB with Excertion, Pleuritic Pain, Sputum, Wheezing Cardiovascular: negative: chest pain, palpitations, orthopnea, paroxysmal nocturnal dyspnea, edema, light headedness, other Gastrointestinal: negative: Nausea, Vomiting, Abdominal Pain, Diarrhea, Constipation, Melena, Hematochezia, Other - Medications/Allergies Allergies/Adverse Reactions: Allergies Allergy/AdvReac Type Severity Reaction Status Date / Time ciprofloxacin Allergy Verified 11/06/18 19:36 Medications: Current Medications Acetaminophen (Tylenol) 1,000 mg PO Q6H PRN PRN Reason: Moderate to Severe Pain (6-10) Last Admin: 01/19/19 02:08 Dose: 1,000 mg Albuterol/Ipratropium (Duoneb) 3 ml NEB Q4H PRN PRN Reason: Wheezing Albuterol/Ipratropium (Duoneb) 3 ml NEB [id number] [facility] Last Admin: 01/19/19 13:25 Dose: 3 ml Amlodipine Besylate (Norvasc) 10 mg PO DAILY [facility] Last Admin: 01/19/19 10:24 Dose: Not Given Arformoterol Tartrate (Brovana) 15 mcg NEB BID-RT [facility] Ascorbic Acid (Vitamin C) 1,000 mg PO DAILY [facility] Last Admin: 01/19/19 10:26 Dose: Not Given Budesonide (Pulmicort Neb Solution) 0.5 mg INH BID-RT [facility] Clonidine (Catapres) 0.1 mg PO Q4H PRN PRN Reason: SBP Greater Than 180 Last Admin: 01/13/19 15:59 Dose: 0.1 mg Clonidine (Catapres) 0.2 mg PO BID [facility] Last Admin: 01/19/19 08:15 Dose: 0.2 mg Dextrose/Water (Dextrose 50%) 25 gm SLOW IVP PRN PRN PRN Reason: Hypoglycemia Diphenhydramine HCl (Benadryl) 25 mg IVP Q3H PRN PRN Reason: Itching Last Admin: 12/30/18 15:37 Dose: 25 mg Diphenhydramine HCl (Benadryl) 25 mg PO Q3H PRN PRN Reason: Itching Last Admin: 01/11/19 05:53 Dose: 25 mg Diphenhydramine HCl (Benadryl) 25 mg IM Q3H PRN PRN Reason: Itching Last Admin: 12/29/18 11:11 Dose: 25 mg Enoxaparin Sodium (Lovenox) 40 mg SC 2100 [facility] Last Admin: 01/18/19 20:10 Dose: 40 mg Fentanyl (Duragesic) 75 mcg TD Q3D [facility] Last Admin: 01/16/19 16:28 Dose: 75 mcg Gabapentin (Neurontin) 900 mg PO TID [facility] Last Admin: 01/19/19 08:17 Dose: 900 mg Glucagon (Glucagon) 1 mg IM PRN PRN PRN Reason: Hypoglycemia Hydralazine HCl (Apresoline) 10 mg SLOW IVP Q2H PRN PRN Reason: SBP > 170 or DBP > 100 Last Admin: 01/12/19 13:45 Dose: 10 mg Hydralazine HCl (Apresoline) 10 mg SLOW IVP Q3H PRN PRN Reason: SBP GREATER THAN 160 Last Admin: 01/08/19 14:56 Dose: 10 mg Dextrose/Water (D5w) 1,000 mls @ 0 mls/hr IV .Q0M PRN PRN Reason: Hypoglycemia Insulin Glargine 20 units/ (Miscellaneous Medication) 0.2 mls @ 0 mls/hr SC QAM [facility] Last Admin: 01/19/19 08:35 Dose: 0.2 mls Sodium Chloride (Normal Saline 0.9%) 1,000 mls @ 75 mls/hr IV .[id number] [facility] Last Admin: 01/19/19 06:28 Dose: 1,000 mls Fat Emulsion Intravenous 100 ml/ Sodium Acetate 40 meq/Sodium Chloride 30 meq/ Potassium Chloride 20 meq/Potassium Phosphate 30 mmol/Calcium Gluconate 10 meq/ Magnesium Sulfate 10 meq/Multivitamins 10 ml/ Chromium/Copper/Manganese/Seleni/ Zn 5 ml/ Dextrose/Water/ Sterile Water/ Amino Acids 1,136.7021 mls @ 47.363 mls /hr IV 1400 [facility] Last Admin: 01/19/19 15:21 Dose: 1,136.7021 mls Insulin Human Lispro (Humalog) 0 units SC .AGGRESSIVE SLIDING PRN; Protocol PRN Reason: AGGRESSIVE SLIDING SCALE Last Admin: 01/19/19 06:27 Dose: 3 unit Labetalol HCl (Normodyne) 20 mg SLOW IVP Q2H PRN PRN Reason: SBP Greater Than 180 Last Admin: 01/14/19 23:44 Dose: 20 ml Lisinopril (Zestril) 20 mg PO BID [facility] Last Admin: 01/19/19 08:18 Dose: 20 mg Multivitamins (Multivit, Chewable Sf) 1 tab PO DAILY [facility] Last Admin: 01/19/19 10:26 Dose: Not Given Ondansetron HCl (Zofran) 4 mg IVP Q6H PRN PRN Reason: Nausea/Vomiting Last Admin: 01/05/19 05:32 Dose: 4 mg Pantoprazole Sodium (Protonix) 40 mg PO DAILY [facility] Last Admin: 01/19/19 08:18 Dose: 40 mg Phenol (Chloraseptic [place] 180 Ml Bot) 0 ml PO Q4H PRN PRN Reason: Sore Throat Last Admin: 12/31/18 05:25 Dose: 1 spray Phosphorus (Kphos Neutral) 250 mg PO TID-WM [facility] Last Admin: 01/19/19 15:20 Dose: Not Given Sodium Chloride (Flush - Normal Saline) 10 ml IVF PRN PRN PRN Reason: Saline Flush Last Admin: 01/16/19 08:32 Dose: 10 ml Sterile Water (Bacteriostatic Water) 1 ml FS PRN PRN PRN Reason: RECONSTITUTION Tramadol HCl (Ultram) 50 mg PO Q6H PRN PRN Reason: Pain 1-5 Last Admin: 01/19/19 08:16 Dose: 50 mg Zinc Sulfate (Zinc Sulfate) 220 mg PO DAILY [facility] Last Admin: 01/19/19 08:17 Dose: 220 mg
--- NOTE | 2019-01-19 16:41 | PDOC.GSPN ---
Surgery Progress Note: Subj - Subjective Narrative: Patient transferred to ICU for tachypnea Surgery Progress Note: Obj - Vital signs Vital signs: Vital Signs - Most Recent Temp Pulse Resp BP Pulse Ox 98.8 F 106 H 23 H 170/74 H 99 01/19/19 12:00 01/19/19 13:26 01/19/19 13:26 01/19/19 08:18 01/19/19 13:26 - Physical Exam Abdomen: soft, appropriately tender, other (mildly distended) Surgery Progress Note: Results - Labs Result Diagrams: 01/19/19 05:30 01/19/19 05:30 Lab results: Laboratory Results - last 24 hr 01/18/19 01/19/19 01/19/19 09:20 05:30 05:30 WBC 7.2 RBC 2.97 L Hgb 8.3 L Hct 26.2 L MCV 88.2 MCH 28.0 MCHC 31.7 L RDW 15.0 H Plt Count 442 H MPV 7.4 Neutrophils % 84.2 H Lymphocytes % 8.5 L Monocytes % 7.0 Eosinophils % 0.3 Basophils % 0.0 Neutrophils # 6.0 Lymphocytes # 0.6 L Monocytes # 0.5 Eosinophils # 0.0 Basophils # 0.0 Specimen Type Puncture Site Bicarbonate Actual ABG pH ABG pCO2 ABG pO2 ABG O2 Sat Calc/Nila ABG O2 Content ABG Base Excess ABG Hematocrit ABG Hemoglobin ABG Oxyhemoglobin ABG Carboxyhemoglobin ABG Methemoglobin ABG Deoxyhemoglobin Jose Test A-a O2 Gradient Ionized Calcium Mode of Support Inspired O2 Sodium 137 Potassium 2.7 L* Chloride 107 Carbon Dioxide 22 L Anion Gap 11 BUN 10 Creatinine 0.59 L Estimated GFR (MDRD) Greater than 90 Glucose 184 H POC Glucose Calcium 7.9 Phosphorus 2.3 Magnesium 1.3 L Lactate Dehydrogenase Triglycerides 117 Fluid Diff Path Review 01/19/19 01/19/19 01/19/19 08:46 09:05 09:10 WBC RBC Hgb Hct MCV MCH MCHC RDW Plt Count MPV Neutrophils % Lymphocytes % Monocytes % Eosinophils % Basophils % Neutrophils # Lymphocytes # Monocytes # Eosinophils # Basophils # Specimen Type ARTERIAL Puncture Site LR Bicarbonate Actual 21.5 L ABG pH 7.46 H ABG pCO2 31.1 L ABG pO2 150.9 H ABG O2 Sat Calc/Nila 99.1 H ABG O2 Content 14.6 L ABG Base Excess -1.8 ABG Hematocrit 30.0 L ABG Hemoglobin 10.3 L ABG Oxyhemoglobin 98.5 H ABG Carboxyhemoglobin 0.3 ABG Methemoglobin 0.30 ABG Deoxyhemoglobin 0.9 Jose Test POSITIVE A-a O2 Gradient 523.225 H Ionized Calcium 1.15 Mode of Support NRB Inspired O2 100 Sodium 137 Potassium 2.49 L Chloride 106 Carbon Dioxide Anion Gap BUN Creatinine Estimated GFR (MDRD) Glucose POC Glucose 249 H Calcium Phosphorus Magnesium Lactate Dehydrogenase 332 H Triglycerides Fluid Diff Path Review Surgery Progress Note: A/P - Problem (1) Perforated duodenal ulcer with hemorrhage Current Visit: Yes Code(s): K26.6 - CHRONIC OR UNSP DUODENAL ULCER W BOTH HEMORRHAGE AND PERF Status: Acute - Plan Plan: Respiratory distress in ICU now on Bipap -CT yesterday showed good placement of drain, no change in perihepatic fluid collection that was previously perc drained and found to be hematoma -Back on Tpn -NPO for now -poor prognosis, discussed with daughter in law. There is no surgical treatment for her duodenal stump leak other than the current drainage.
[2019-01-19] MEDS ORDERED: Budesonide 0.5 MG/2 ML NEB INH SCH (18:30)
[2019-01-19] MEDS ORDERED: Mometasone/Formoterol 120 PUFF INHALER INH SCH (18:30)
[2019-01-19] MEDS: Arformoterol 15 MCG/2 ML NEB NEB SCH (18:39)
[2019-01-19] MEDS: Budesonide 0.5 MG/2 ML NEB INH SCH (18:39)
[2019-01-19] MEDS: fentaNYL 75 mcg/hour Patch TD SCH (20:18)
[2019-01-19] MEDS ORDERED: Magnesium Sulfate 3 GM in Sodium Chloride 0.9% 100 ML IVPB SCH (20:45)
[2019-01-19] MEDS: Enoxaparin Sodium 40 MG/0.4 ML SYRINGE SC SCH (21:19)
[2019-01-19] MEDS: Labetalol HCl 100 MG/20 ML VIAL SLOW IVP PRN (21:37)
[2019-01-19] MEDS: Morphine 4 MG/ML VIAL SLOW IVP PRN (22:00)
[2019-01-19] MEDS ORDERED: Lorazepam 2 MG/ML VIAL SLOW IVP PRN (23:16)
[2019-01-20] MEDS: HumaLOG 300 UNITS/3 ML VIAL SC PRN ×4 (06:03→21:51)
[2019-01-20] MEDS: Budesonide 0.5 MG/2 ML NEB INH SCH ×2 (07:18→19:02)
[2019-01-20] MEDS: Arformoterol 15 MCG/2 ML NEB NEB SCH ×2 (07:19→19:02)
[2019-01-20 07:56] LABS: #Lymphocytes 1.2 thou/uL (1.20-3.40); #Monocytes 0.5 thou/uL (0.11-0.59); %Basophils 0.3 % (0.0-1.0); %Eosinophils 0.1 % (0.0-10.0); %Lymphocytes 13.9 % (21.0-51.0); %Monocytes 5.6 % (0.0-10.0); %Neutrophils 80.1 % (42.0-75.0); Mean Corpuscular HGB CONC 34.3 g/dL (32.0-36.0); Mean Corpuscular Volume 87.4 fL (78.0-98.0); Mean Platelet Volume 7.5 fL (7.4-10.4); Platelet Count 529 thou/uL (130-400); RBC Distribution Width 15.1 % (11.5-14.5); White Blood Cell (WBC) Count 8.7 thou/uL (4.8-10.8)
[2019-01-20] MEDS: K-Phos Neutral 250 MG TAB PO SCH ×3 (08:00→20:52)
--- NOTE | 2019-01-20 08:18 | PRG ---
DATE OF SERVICE: 01/20/2019 SUBJECTIVE: She did have respiratory distress yesterday and was placed on noninvasive ventilation, to which she has done well. OBJECTIVE: VITAL SIGNS: Pulse 99, respiratory rate 21, saturations are 94% on room air, blood pressure 174/80. GENERAL: She is awake, alert, and responsive. She says she is feeling better. CHEST: Minimal wheezing, if any at all. CARDIAC: Normal S1, S2. No gallops. ABDOMEN: No masses. LABORATORY DATA: Blood sugars were elevated. IMPRESSION: Laparotomy, perforated duodenal ulcer, status post leak, respiratory failure, asthma, major anxiety, chronic pain. It is unclear what the cause of her respiratory distress is. I did a thoracentesis and drained 350 mL of fluid, which is probably very sympathetic in origin from the surgery. Cultures and cytology were all negative. She is off all antibiotics. She is on TPN, supportive care, neb treatments. Nothing additional to offer at this time. Discussed with surgery in the process of continuing observation regarding abdominal process. We will follow. Job ID: [id number]
[2019-01-20 08:41] LABS: ALT (SGPT) 75 U/L (8-55); AST (SGOT) 69 U/L (5-34); Albumin 2.7 g/dL (3.4-4.8); Alkaline Phosphatase 211 U/L (40-150); Anion Gap 13 mmol/L (10-20); BUN (Urea Nitrogen) 16 mg/dL (9.8-20.1); Bilirubin, Total 0.8 mg/dL (0.2-1.2); Calc. Creatinine Clearance 80 mL/min (70-130); Calcium 8.5 mg/dL (7.8-10.44); Carbon Dioxide 23 mmol/L (23-31); Chloride 110 mmol/L (98-107); Estimated GFR-MDRD 89; Globulin 4.8 g/dL (2.4-3.5); Glucose 242 mg/dL (80-115); Potassium 2.6 mmol/L (3.5-5.1); Protein, Total 7.5 g/dL (6.0-8.3); Sodium 143 mmol/L (136-145)
[2019-01-20] MEDS: Zinc Sulfate 220 MG CAP PO SCH (09:00)
[2019-01-20] MEDS: Lisinopril 20 MG TAB PO SCH ×2 (09:00→21:10)
[2019-01-20] MEDS: Ascorbic Acid 500 mg Chewable Tablet PO SCH (09:00)
[2019-01-20] MEDS: cloNIDine 0.2 MG TAB PO SCH ×2 (09:00→21:10)
[2019-01-20] MEDS: Gabapentin 300 MG CAP PO SCH ×3 (09:00→21:10)
[2019-01-20] MEDS: Multivit, Chewable SF 1 TAB PO SCH (09:00)
[2019-01-20] MEDS: Amlodipine 10 MG TAB PO SCH (09:00)
[2019-01-20] MEDS: Insulin Glargine 20 UNITS in Pre-Filled Syringe 1 EACH SC SCH (09:59)
[2019-01-20] MEDS: Sodium Chloride 0.9% 1,000 ML IV SCH (10:01)
[2019-01-20] MEDS: hydrALAZINE 20 MG/ML VIAL SLOW IVP PRN ×2 (11:34→13:53)
[2019-01-20] MEDS ORDERED: Magnesium Sulfate 3 GM in Sodium Chloride 0.9% 100 ML IVPB SCH (13:15)
[2019-01-20] MEDS ORDERED: Lorazepam 1 MG TAB PO SCH (13:15)
[2019-01-20] MEDS ORDERED: Potassium Chloride 40 MEQ in Premix Bag 1 BAG IVPB SCH (13:45)
[2019-01-20] MEDS: SODIUM CHLORIDE IV SCH (15:25)
[2019-01-20] MEDS: [UNRECOGNIZED DRUG - OTHER] IV SCH (15:25)
[2019-01-20] MEDS: SODIUM ACETATE IV SCH (15:25)
[2019-01-20] MEDS: FAT EMULSION IV SCH (15:25)
--- NOTE | 2019-01-20 17:28 | PRG ---
DATE OF SERVICE: 01/20/2019 SUBJECTIVE: Ms. Qureshi is sleeping after getting some Ativan. She appears much more comfortable. Her tachypnea has resolved. Her tachycardia is improved. OBJECTIVE: VITAL SIGNS: Her pulse is 99. Her blood pressure is 181/70. She is 99% on 2 L nasal cannula. Her ELEANOR output remains decreased. There is some bilious material in the drain. ABDOMEN: She has had no bowel movement since she had a bowel movement yesterday. She is voiding regularly. Her abdomen is soft and nontender. Her midline wound is well healed. LABORATORY DATA: Her white blood cell count is 8.7. Her hemoglobin is 9. She has a normal differential. Her sodium is 143, potassium is 2.6, and creatinine 0.67. Her bilirubin is normal. Her albumin is 2.7. ASSESSMENT: 1. Status post antrectomy, gastrectomy with loop gastrojejunostomy complicated by duodenal stump leak. 2. History of chronic pain. 3. History of tachypnea and tachycardia secondary to anxiety and right pleural effusion. 4. CT on 01/17 showed drain in good position, and near the duodenal stump, there is a second fluid collection, that is perihepatic, that already was attempted to perc drain, but it is hematoma. PLAN: I have allowed for now n.p.o. except meds and ice chips. She is on TPN. Her potassium has been low and difficult to replace; however, we are now being more aggressive on magnesium supplementation too. I recommend to continue antibiotics, TPN, minimal p.o. until her tachypnea has resolved and improved, and then she will be transferred back to the floor. Job ID: [id number]
[2019-01-20] MEDS: Enoxaparin Sodium 40 MG/0.4 ML SYRINGE SC SCH (21:09)
--- NOTE | 2019-01-20 21:09 | EKG ---
Test Reason : Blood Pressure : / mmHG Vent. Rate : 120 BPM Atrial Rate : 120 BPM P-R Int : 126 ms QRS Dur : 080 ms QT Int : 308 ms P-R-T Axes : 017 -19 035 degrees QTc Int : 435 ms Sinus tachycardia Anterior infarct (cited on or before 08-JAN-2019) Abnormal ECG When compared with ECG of 08-JAN-2019 15:12, No significant change was found Confirmed by Luis STUART ([id number]) on 01/20/2019 9:09:24 PM Referred By: Confirmed By:Luis STUART
[2019-01-21] MEDS: Sodium Chloride 0.9% 1,000 ML IV SCH ×2 (00:15→11:36)
[2019-01-21 04:24] LABS: #Lymphocytes 1.1 thou/uL (1.20-3.40); #Monocytes 0.7 thou/uL (0.11-0.59); #Neutrophils 6.3 thou/uL (1.40-6.50); %Basophils 0.1 % (0.0-1.0); %Eosinophils 0.2 % (0.0-10.0); %Monocytes 8.4 % (0.0-10.0); %Neutrophils 77.2 % (42.0-75.0); Hemoglobin 8.1 g/dL (12.0-16.0); Mean Corpuscular HGB CONC 32.3 g/dL (32.0-36.0); Mean Corpuscular Hemoglobin 28.7 pg (27.0-31.0); Mean Platelet Volume 7.9 fL (7.4-10.4); Platelet Count 547 thou/uL (130-400); RBC Distribution Width 15.3 % (11.5-14.5); Red Blood Cell (RBC) Count 2.81 mill/uL (4.20-5.40); White Blood Cell (WBC) Count 8.1 thou/uL (4.8-10.8)
[2019-01-21 04:57] LABS: Anion Gap 12 mmol/L (10-20); BUN (Urea Nitrogen) 25 mg/dL (9.8-20.1); Calc. Creatinine Clearance 80 mL/min (70-130); Calcium 8.8 mg/dL (7.8-10.44); Carbon Dioxide 26 mmol/L (23-31); Chloride 112 mmol/L (98-107); Estimated GFR-MDRD 89; Glucose 142 mg/dL (80-115); Magnesium 2.1 mg/dL (1.6-2.6); Phosphorus 3.4 mg/dL (2.3-4.7); Sodium 147 mmol/L (136-145)
[2019-01-21] MEDS: HumaLOG 300 UNITS/3 ML VIAL SC PRN ×3 (06:29→16:17)
[2019-01-21] MEDS: Budesonide 0.5 MG/2 ML NEB INH SCH ×2 (06:47→18:24)
[2019-01-21] MEDS: Arformoterol 15 MCG/2 ML NEB NEB SCH ×2 (06:48→18:25)
--- NOTE | 2019-01-21 08:02 | PDOC.PN ---
- Subjective Encounter Start Date: 01/20/19 Encounter Start Time: 10:20 Subjective: pt up in bed appear anxious - Objective Resuscitation Status - Order Detail: 12/24/18 21:39 Resuscitation Status Routine Resuscitation Status: FULL: Full Resuscitation Vital Signs & Weight: Vital Signs (12 hours) Temp Pulse Resp BP Pulse Ox 01/21/19 06:49 97 01/21/19 06:48 110 H 18 97 01/21/19 06:44 112 H 24 H 97 01/21/19 04:00 98.0 F 01/21/19 00:29 96 21 H 98 01/21/19 00:00 98.1 F 01/20/19 21:10 112/56 L Weight Admit Weight 125 lb 3.2 oz Weight 129 lb 13.636 oz Most Recent Monitor Data Heart Rate from ECG 105 NIBP 150/78 NIBP BP-Mean 102 Respiration from ECG 15 SpO2 97 I&O: 01/20/19 01/21/19 01/22/19 06:59 06:59 06:59 Intake Total 1732 3257 Output Total 500 620 Balance 1232 2637 Result Diagrams: 01/21/19 03:50 01/21/19 03:50 Additional Labs: Accuchecks 01/20/19 01/20/19 01/20/19 21:51 17:05 13:32 POC Glucose 236 H 184 H 166 H 01/20/19 07:48 POC Glucose 238 H Phys Exam - Physical Examination Neck: no nodes, no JVD, supple, full ROM Respiratory: no wheezing, no rales, no rhonchi, clear to auscultation bilateral Cardiovascular: RRR, no significant murmur, no rub, gallop, irregular Gastrointestinal: soft, non-tender, no distention, positive bowel sounds Dx/Plan (1) Acute respiratory failure Code(s): J96.00 - ACUTE RESPIRATORY FAILURE, UNSP W HYPOXIA OR HYPERCAPNIA Status: Resolved (2) Anemia due to acute blood loss Code(s): D62 - ACUTE POSTHEMORRHAGIC ANEMIA Status: Acute Comment: s/p total 5 unit PRBC (3) Perforated duodenal ulcer with hemorrhage Code(s): K26.6 - CHRONIC OR UNSP DUODENAL ULCER W BOTH HEMORRHAGE AND PERF Status: Acute Comment: required surgical repair this admission (4) S/P bypass gastrojejunostomy Code(s): Z98.0 - INTESTINAL BYPASS AND ANASTOMOSIS STATUS Status: Acute Comment: s/p re exploration of abdomen and wash out 12/29/18 (5) Upper GI bleed Code(s): K92.2 - GASTROINTESTINAL HEMORRHAGE, UNSPECIFIED Status: Resolved (6) Diabetes type 2, controlled Code(s): E11.9 - TYPE 2 DIABETES MELLITUS WITHOUT COMPLICATIONS Status: Chronic (7) HTN (hypertension) Code(s): I10 - ESSENTIAL (PRIMARY) HYPERTENSION Status: Chronic Qualifiers: Comment: labile control (8) Obesity (BMI 30.0-34.9) Code(s): E66.9 - OBESITY, UNSPECIFIED Status: Chronic - Plan pt appears anxious will give one dose of ativan -: vitals stable, she is back on bipap -: good ef on echo, cxr no edema -: ?anxiety component * . Review of Systems - Review of Systems Respiratory: negative: Cough, Dry, Shortness of Breath, Hemoptysis, SOB with Excertion, Pleuritic Pain, Sputum, Wheezing Cardiovascular: negative: chest pain, palpitations, orthopnea, paroxysmal nocturnal dyspnea, edema, light headedness, other Gastrointestinal: negative: Nausea, Vomiting, Abdominal Pain, Diarrhea, Constipation, Melena, Hematochezia, Other - Medications/Allergies Allergies/Adverse Reactions: Allergies Allergy/AdvReac Type Severity Reaction Status Date / Time ciprofloxacin Allergy Verified 11/06/18 19:36 Medications: Current Medications Acetaminophen (Tylenol) 1,000 mg PO Q6H PRN PRN Reason: Moderate to Severe Pain (6-10) Last Admin: 01/19/19 02:08 Dose: 1,000 mg Albuterol/Ipratropium (Duoneb) 3 ml NEB Q4H PRN PRN Reason: Wheezing Albuterol/Ipratropium (Duoneb) 3 ml NEB [id number] [facility] Last Admin: 01/21/19 12:32 Dose: 3 ml Amlodipine Besylate (Norvasc) 10 mg PO DAILY [facility] Last Admin: 01/21/19 08:49 Dose: 10 mg Arformoterol Tartrate (Brovana) 15 mcg NEB BID-RT [facility] Last Admin: 01/21/19 06:48 Dose: 15 mcg Ascorbic Acid (Vitamin C) 1,000 mg PO DAILY [facility] Last Admin: 01/21/19 08:48 Dose: 1,000 mg Budesonide (Pulmicort Neb Solution) 0.5 mg INH BID-RT [facility] Last Admin: 01/21/19 06:47 Dose: 0.5 mg Citalopram Hydrobromide (Celexa) 10 mg PO DAILY [facility] Clonidine (Catapres) 0.1 mg PO Q4H PRN PRN Reason: SBP Greater Than 180 Last Admin: 01/13/19 15:59 Dose: 0.1 mg Clonidine (Catapres) 0.2 mg PO BID [facility] Last Admin: 01/21/19 08:48 Dose: 0.2 mg Dextrose/Water (Dextrose 50%) 25 gm SLOW IVP PRN PRN PRN Reason: Hypoglycemia Diphenhydramine HCl (Benadryl) 25 mg IVP Q3H PRN PRN Reason: Itching Last Admin: 12/30/18 15:37 Dose: 25 mg Diphenhydramine HCl (Benadryl) 25 mg PO Q3H PRN PRN Reason: Itching Last Admin: 01/11/19 05:53 Dose: 25 mg Diphenhydramine HCl (Benadryl) 25 mg IM Q3H PRN PRN Reason: Itching Last Admin: 12/29/18 11:11 Dose: 25 mg Enoxaparin Sodium (Lovenox) 40 mg SC 2100 [facility] Last Admin: 01/20/19 21:09 Dose: 40 mg Fentanyl (Duragesic) 75 mcg TD Q3D [facility] Last Admin: 01/19/19 20:18 Dose: 75 mcg Gabapentin (Neurontin) 900 mg PO TID [facility] Last Admin: 01/21/19 14:58 Dose: 900 mg Glucagon (Glucagon) 1 mg IM PRN PRN PRN Reason: Hypoglycemia Hydralazine HCl (Apresoline) 10 mg SLOW IVP Q2H PRN PRN Reason: SBP > 170 or DBP > 100 Last Admin: 01/20/19 13:53 Dose: 10 mg Hydralazine HCl (Apresoline) 10 mg SLOW IVP Q3H PRN PRN Reason: SBP GREATER THAN 160 Last Admin: 01/08/19 14:56 Dose: 10 mg Dextrose/Water (D5w) 1,000 mls @ 0 mls/hr IV .Q0M PRN PRN Reason: Hypoglycemia Sodium Chloride (Normal Saline 0.9%) 1,000 mls @ 75 mls/hr IV .[id number] [facility] Last Admin: 01/21/19 11:36 Dose: 1,000 mls Insulin Glargine 25 units/ (Miscellaneous Medication) 0.25 mls @ 0 mls/hr SC QAM [facility] Last Admin: 01/21/19 08:49 Dose: 0.25 mls Fat Emulsion Intravenous 100 ml/ Sodium Acetate 40 meq/Sodium Chloride 30 meq/ Potassium Chloride 20 meq/Potassium Acetate 40 meq/Potassium Phosphate 30 mmol/ Calcium Gluconate 10 meq/Magnesium Sulfate 15 meq/Multivitamins 10 ml/ Chromium/ Copper/Manganese/Seleni/Zn 5 ml/ Dextrose/Water/ Sterile Water/ Amino Acids 1, 157.9336 mls @ 48.247 mls/hr IV 1400 [facility] Last Admin: 01/21/19 14:58 Dose: 1,157.9336 mls Insulin Human Lispro (Humalog) 0 units SC .AGGRESSIVE SLIDING PRN; Protocol PRN Reason: AGGRESSIVE SLIDING SCALE Last Admin: 01/21/19 11:26 Dose: 3 unit Labetalol HCl (Normodyne) 20 mg SLOW IVP Q2H PRN PRN Reason: SBP Greater Than 180 Last Admin: 01/19/19 21:37 Dose: 20 mg Lisinopril (Zestril) 20 mg PO BID [facility] Last Admin: 01/21/19 08:48 Dose: 20 mg Lorazepam (Ativan) 1 mg PO BID PRN PRN Reason: Anxiety/Agitation Morphine Sulfate (Morphine) 2 mg SLOW IVP Q4H PRN PRN Reason: Pain IF UNABLE TO TAKE PO Last Admin: 01/19/19 22:00 Dose: 2 mg Multivitamins (Multivit, Chewable Sf) 1 tab PO DAILY [facility] Last Admin: 01/21/19 08:54 Dose: 1 tab Ondansetron HCl (Zofran) 4 mg IVP Q6H PRN PRN Reason: Nausea/Vomiting Last Admin: 01/05/19 05:32 Dose: 4 mg Pantoprazole Sodium (Protonix) 40 mg PO DAILY [facility] Last Admin: 01/21/19 08:48 Dose: 40 mg Phenol (Chloraseptic [place] 180 Ml Bot) 0 ml PO Q4H PRN PRN Reason: Sore Throat Last Admin: 12/31/18 05:25 Dose: 1 spray Phosphorus (Kphos Neutral) 250 mg PO TID-[facility] Last Admin: 01/21/19 11:32 Dose: 250 mg Potassium Chloride (K-Dur) 40 meq PO BID-[facility] Stop: 01/22/19 08:01 Sodium Chloride (Flush - Normal Saline) 10 ml IVF PRN PRN PRN Reason: Saline Flush Last Admin: 01/16/19 08:32 Dose: 10 ml Sterile Water (Bacteriostatic Water) 1 ml FS PRN PRN PRN Reason: RECONSTITUTION Tramadol HCl (Ultram) 50 mg PO Q6H PRN PRN Reason: Pain 1-5 Last Admin: 01/19/19 08:16 Dose: 50 mg Zinc Sulfate (Zinc Sulfate) 220 mg PO DAILY [facility] Last Admin: 01/21/19 08:48 Dose: 220 mg
[2019-01-21] MEDS: K-Phos Neutral 250 MG TAB PO SCH ×3 (08:47→16:16)
[2019-01-21] MEDS: cloNIDine 0.2 MG TAB PO SCH ×2 (08:48→20:35)
[2019-01-21] MEDS: Lisinopril 20 MG TAB PO SCH ×2 (08:48→20:37)
[2019-01-21] MEDS: Zinc Sulfate 220 MG CAP PO SCH (08:48)
[2019-01-21] MEDS: Ascorbic Acid 500 mg Chewable Tablet PO SCH (08:48)
[2019-01-21] MEDS: Gabapentin 300 MG CAP PO SCH ×3 (08:48→20:35)
[2019-01-21] MEDS: Insulin Glargine 25 UNITS in Pre-Filled Syringe 1 EACH SC SCH (08:49)
[2019-01-21] MEDS: Amlodipine 10 MG TAB PO SCH (08:49)
[2019-01-21] MEDS: Multivit, Chewable SF 1 TAB PO SCH (08:54)
--- NOTE | 2019-01-21 10:21 | PRG ---
DATE OF SERVICE: 01/21/2019 SUBJECTIVE: The patient has done well overnight. She was taken off the BiPAP this morning. She says her abdominal pain is a little better. OBJECTIVE: VITAL SIGNS: Temperature is 98.0, pulse 105, blood pressure 150/70, O2 saturation 97%. HEENT: Unremarkable. NECK: No adenopathy or JVD. LUNGS: Clear anteriorly. CARDIAC: S1 and S2 regular. ABDOMEN: Some tenderness in the mid epigastric region, but no rebound. EXTREMITIES: No clubbing, cyanosis, or edema. LABORATORY DATA: White blood cell count 8.1, hematocrit 25, platelet count 547. Sodium potassium 3, chloride 112, CO2 of 26, BUN 25, creatinine 0.6, glucose 142. ASSESSMENT: 1. Status post antrectomy and gastrectomy with loop gastrojejunostomy complicated by duodenal stump leak. 2. Pain. 3. Reactive pleural effusion. PLAN: She has done well in the last 24 hours and I think to be transferred out to the intermediate care unit. The patient is wanting to eat, but I think that should ultimately be left up to the General Surgery group. Job ID: [id number]
[2019-01-21] MEDS: [UNRECOGNIZED DRUG - OTHER] IV SCH (14:58)
[2019-01-21] MEDS: SODIUM CHLORIDE IV SCH (14:58)
[2019-01-21] MEDS: SODIUM ACETATE IV SCH (14:58)
[2019-01-21] MEDS: FAT EMULSION IV SCH (14:58)
--- NOTE | 2019-01-21 15:22 | PDOC.PN ---
- Subjective Encounter Start Date: 01/21/19 Encounter Start Time: 10:15 Subjective: pt up in bed feels better off bipap - Objective Resuscitation Status - Order Detail: 12/24/18 21:39 Resuscitation Status Routine Resuscitation Status: FULL: Full Resuscitation Vital Signs & Weight: Vital Signs (12 hours) Temp Pulse Resp BP Pulse Ox 01/21/19 12:32 93 20 97 01/21/19 08:49 107 H 145/70 H 01/21/19 08:48 145/70 H 01/21/19 06:49 97 01/21/19 06:48 110 H 18 97 01/21/19 06:44 112 H 24 H 97 01/21/19 04:00 98.0 F Weight Admit Weight 125 lb 3.2 oz Weight 129 lb 13.636 oz Most Recent Monitor Data Heart Rate from ECG 105 NIBP 150/78 NIBP BP-Mean 102 Respiration from ECG 15 SpO2 97 I&O: 01/20/19 01/21/19 01/22/19 06:59 06:59 06:59 Intake Total 1732 3257 Output Total 500 620 Balance 1232 2637 Result Diagrams: 01/21/19 03:50 01/21/19 03:50 Additional Labs: Accuchecks 01/21/19 01/21/19 01/20/19 11:25 06:29 21:51 POC Glucose 196 H 194 H 236 H 01/20/19 17:05 POC Glucose 184 H Phys Exam - Physical Examination Neck: no nodes, no JVD, supple, full ROM Respiratory: no wheezing, no rales, no rhonchi, clear to auscultation bilateral Cardiovascular: RRR, no significant murmur, no rub, gallop, irregular Gastrointestinal: soft, non-tender, no distention, positive bowel sounds Musculoskeletal: no edema, pulses present, edema present Dx/Plan (1) Acute respiratory failure Code(s): J96.00 - ACUTE RESPIRATORY FAILURE, UNSP W HYPOXIA OR HYPERCAPNIA Status: Resolved (2) Anemia due to acute blood loss Code(s): D62 - ACUTE POSTHEMORRHAGIC ANEMIA Status: Acute Comment: s/p total 5 unit PRBC (3) Perforated duodenal ulcer with hemorrhage Code(s): K26.6 - CHRONIC OR UNSP DUODENAL ULCER W BOTH HEMORRHAGE AND PERF Status: Acute Comment: required surgical repair this admission (4) S/P bypass gastrojejunostomy Code(s): Z98.0 - INTESTINAL BYPASS AND ANASTOMOSIS STATUS Status: Acute Comment: s/p re exploration of abdomen and wash out 12/29/18 (5) Upper GI bleed Code(s): K92.2 - GASTROINTESTINAL HEMORRHAGE, UNSPECIFIED Status: Resolved (6) Diabetes type 2, controlled Code(s): E11.9 - TYPE 2 DIABETES MELLITUS WITHOUT COMPLICATIONS Status: Chronic (7) HTN (hypertension) Code(s): I10 - ESSENTIAL (PRIMARY) HYPERTENSION Status: Chronic Qualifiers: Comment: labile control (8) Obesity (BMI 30.0-34.9) Code(s): E66.9 - OBESITY, UNSPECIFIED Status: Chronic (9) Anxiety Code(s): F41.9 - ANXIETY DISORDER, UNSPECIFIED Status: Acute - Plan will add citalopram and prn ativan -: hh stable, no elevated wbc. * . Review of Systems - Review of Systems Respiratory: negative: Cough, Dry, Shortness of Breath, Hemoptysis, SOB with Excertion, Pleuritic Pain, Sputum, Wheezing Cardiovascular: negative: chest pain, palpitations, orthopnea, paroxysmal nocturnal dyspnea, edema, light headedness, other Gastrointestinal: negative: Nausea, Vomiting, Abdominal Pain, Diarrhea, Constipation, Melena, Hematochezia, Other - Medications/Allergies Allergies/Adverse Reactions: Allergies Allergy/AdvReac Type Severity Reaction Status Date / Time ciprofloxacin Allergy Verified 11/06/18 19:36 Medications: Current Medications Acetaminophen (Tylenol) 1,000 mg PO Q6H PRN PRN Reason: Moderate to Severe Pain (6-10) Last Admin: 01/19/19 02:08 Dose: 1,000 mg Albuterol/Ipratropium (Duoneb) 3 ml NEB Q4H PRN PRN Reason: Wheezing Albuterol/Ipratropium (Duoneb) 3 ml NEB [id number] Last Admin: 01/21/19 12:32 Dose: 3 ml Amlodipine Besylate (Norvasc) 10 mg PO DAILY [facility] Last Admin: 01/21/19 08:49 Dose: 10 mg Arformoterol Tartrate (Brovana) 15 mcg NEB BID-RT [facility] Last Admin: 01/21/19 06:48 Dose: 15 mcg Ascorbic Acid (Vitamin C) 1,000 mg PO DAILY [facility] Last Admin: 01/21/19 08:48 Dose: 1,000 mg Budesonide (Pulmicort Neb Solution) 0.5 mg INH BID-RT [facility] Last Admin: 01/21/19 06:47 Dose: 0.5 mg Citalopram Hydrobromide (Celexa) 10 mg PO DAILY [facility] Clonidine (Catapres) 0.1 mg PO Q4H PRN PRN Reason: SBP Greater Than 180 Last Admin: 01/13/19 15:59 Dose: 0.1 mg Clonidine (Catapres) 0.2 mg PO BID [facility] Last Admin: 01/21/19 08:48 Dose: 0.2 mg Dextrose/Water (Dextrose 50%) 25 gm SLOW IVP PRN PRN PRN Reason: Hypoglycemia Diphenhydramine HCl (Benadryl) 25 mg IVP Q3H PRN PRN Reason: Itching Last Admin: 12/30/18 15:37 Dose: 25 mg Diphenhydramine HCl (Benadryl) 25 mg PO Q3H PRN PRN Reason: Itching Last Admin: 01/11/19 05:53 Dose: 25 mg Diphenhydramine HCl (Benadryl) 25 mg IM Q3H PRN PRN Reason: Itching Last Admin: 12/29/18 11:11 Dose: 25 mg Enoxaparin Sodium (Lovenox) 40 mg SC 2100 [facility] Last Admin: 01/20/19 21:09 Dose: 40 mg Fentanyl (Duragesic) 75 mcg TD Q3D [facility] Last Admin: 01/19/19 20:18 Dose: 75 mcg Gabapentin (Neurontin) 900 mg PO TID [facility] Last Admin: 01/21/19 14:58 Dose: 900 mg Glucagon (Glucagon) 1 mg IM PRN PRN PRN Reason: Hypoglycemia Hydralazine HCl (Apresoline) 10 mg SLOW IVP Q2H PRN PRN Reason: SBP > 170 or DBP > 100 Last Admin: 01/20/19 13:53 Dose: 10 mg Hydralazine HCl (Apresoline) 10 mg SLOW IVP Q3H PRN PRN Reason: SBP GREATER THAN 160 Last Admin: 01/08/19 14:56 Dose: 10 mg Dextrose/Water (D5w) 1,000 mls @ 0 mls/hr IV .Q0M PRN PRN Reason: Hypoglycemia Sodium Chloride (Normal Saline 0.9%) 1,000 mls @ 75 mls/hr IV .[id number] [facility] Last Admin: 01/21/19 11:36 Dose: 1,000 mls Insulin Glargine 25 units/ (Miscellaneous Medication) 0.25 mls @ 0 mls/hr SC QAM [facility] Last Admin: 01/21/19 08:49 Dose: 0.25 mls Fat Emulsion Intravenous 100 ml/ Sodium Acetate 40 meq/Sodium Chloride 30 meq/ Potassium Chloride 20 meq/Potassium Acetate 40 meq/Potassium Phosphate 30 mmol/ Calcium Gluconate 10 meq/Magnesium Sulfate 15 meq/Multivitamins 10 ml/ Chromium/ Copper/Manganese/Seleni/Zn 5 ml/ Dextrose/Water/ Sterile Water/ Amino Acids 1, 157.9336 mls @ 48.247 mls/hr IV 1400 [facility] Last Admin: 01/21/19 14:58 Dose: 1,157.9336 mls Insulin Human Lispro (Humalog) 0 units SC .AGGRESSIVE SLIDING PRN; Protocol PRN Reason: AGGRESSIVE SLIDING SCALE Last Admin: 01/21/19 11:26 Dose: 3 unit Labetalol HCl (Normodyne) 20 mg SLOW IVP Q2H PRN PRN Reason: SBP Greater Than 180 Last Admin: 01/19/19 21:37 Dose: 20 mg Lisinopril (Zestril) 20 mg PO BID [facility] Last Admin: 01/21/19 08:48 Dose: 20 mg Lorazepam (Ativan) 1 mg PO BID PRN PRN Reason: Anxiety/Agitation Morphine Sulfate (Morphine) 2 mg SLOW IVP Q4H PRN PRN Reason: Pain IF UNABLE TO TAKE PO Last Admin: 01/19/19 22:00 Dose: 2 mg Multivitamins (Multivit, Chewable Sf) 1 tab PO DAILY [facility] Last Admin: 01/21/19 08:54 Dose: 1 tab Ondansetron HCl (Zofran) 4 mg IVP Q6H PRN PRN Reason: Nausea/Vomiting Last Admin: 01/05/19 05:32 Dose: 4 mg Pantoprazole Sodium (Protonix) 40 mg PO DAILY [facility] Last Admin: 01/21/19 08:48 Dose: 40 mg Phenol (Chloraseptic [place] 180 Ml Bot) 0 ml PO Q4H PRN PRN Reason: Sore Throat Last Admin: 12/31/18 05:25 Dose: 1 spray Phosphorus (Kphos Neutral) 250 mg PO TID-[facility] Last Admin: 01/21/19 11:32 Dose: 250 mg Potassium Chloride (K-Dur) 40 meq PO BID-[facility] Stop: 01/22/19 08:01 Sodium Chloride (Flush - Normal Saline) 10 ml IVF PRN PRN PRN Reason: Saline Flush Last Admin: 01/16/19 08:32 Dose: 10 ml Sterile Water (Bacteriostatic Water) 1 ml FS PRN PRN PRN Reason: RECONSTITUTION Tramadol HCl (Ultram) 50 mg PO Q6H PRN PRN Reason: Pain 1-5 Last Admin: 01/19/19 08:16 Dose: 50 mg Zinc Sulfate (Zinc Sulfate) 220 mg PO DAILY [facility] Last Admin: 01/21/19 08:48 Dose: 220 mg
[2019-01-21] MEDS: traMADol HCl 50 MG TAB PO PRN (16:15)
[2019-01-21] MEDS: Potassium Chloride 20 MEQ TAB PO SCH (16:15)
[2019-01-21] MEDS: Enoxaparin Sodium 40 MG/0.4 ML SYRINGE SC SCH (20:37)
[2019-01-21] MEDS: Lorazepam 1 MG TAB PO PRN (20:51)
--- NOTE | 2019-01-21 20:56 | PDOC.GSPN ---
Surgery Progress Note: Subj - Subjective Narrative: Patient with duodenal ulcer status post antrectomy with duodenal stump leak. She was transferred to IMCU after her respiratory status improved. She is no longer on BiPAP and feels that she is breathing better. She is not having any significant abdominal pain or nausea. Still has some bilious drainage from the right-sided ELEANOR. Abdominal exam is benign. Breath sounds are diminished and respiratory effort is poor. H&H is stable. She had low-grade temperatures earlier today. Abdominal exam is benign. Her incisions are okay. Assessment/plan: Doing better from a respiratory status and transferred from CCU to IMCU. Controlled duodenal stump leak with minimal bilious output through her ELEANOR. Continue conservative management for this. Poor respiratory effort, likely due to recent abdominal surgery. Incentive spirometer has been ordered and the nurses are going to train her in its use. Surgery Progress Note: Obj - Vital signs Vital signs: Vital Signs - Most Recent Temp Pulse Resp BP Pulse Ox 99.7 F H 107 H 18 154/73 H 95 01/21/19 19:36 01/21/19 18:24 01/21/19 18:24 01/21/19 20:37 01/21/19 18:24 Surgery Progress Note: Results - Labs Result Diagrams: 01/21/19 03:50 01/21/19 03:50 Lab results: Laboratory Results - last 24 hr 01/21/19 01/21/19 01/21/19 11:25 16:13 20:24 POC Glucose 196 H 162 H 150 H
[2019-01-22] MEDS: Sodium Chloride 0.9% 1,000 ML IV SCH ×2 (01:20→14:34)
[2019-01-22] MEDS: Arformoterol 15 MCG/2 ML NEB NEB SCH ×2 (07:26→18:25)
[2019-01-22] MEDS: Budesonide 0.5 MG/2 ML NEB INH SCH ×2 (07:26→18:25)
[2019-01-22] MEDS: HumaLOG 300 UNITS/3 ML VIAL SC PRN ×2 (08:04→11:12)
[2019-01-22] MEDS ORDERED: Potassium Chloride 20 MEQ TAB PO SCH (09:12)
[2019-01-22] MEDS: cloNIDine 0.2 MG TAB PO SCH ×2 (09:30→21:01)
[2019-01-22] MEDS: Amlodipine 10 MG TAB PO SCH (09:30)
[2019-01-22] MEDS: Potassium Chloride 20 MEQ TAB PO SCH ×2 (09:32→16:00)
[2019-01-22] MEDS: Ascorbic Acid 500 mg Chewable Tablet PO SCH (09:32)
[2019-01-22] MEDS: Citalopram 10 MG TAB PO SCH (09:33)
[2019-01-22] MEDS: Lisinopril 20 MG TAB PO SCH ×2 (09:33→21:01)
[2019-01-22] MEDS: Gabapentin 300 MG CAP PO SCH ×3 (09:33→21:02)
[2019-01-22] MEDS: K-Phos Neutral 250 MG TAB PO SCH ×3 (09:34→16:00)
[2019-01-22] MEDS: Multivit, Chewable SF 1 TAB PO SCH (09:34)
[2019-01-22] MEDS: Insulin Glargine 25 UNITS in Pre-Filled Syringe 1 EACH SC SCH (09:35)
[2019-01-22] MEDS: Zinc Sulfate 220 MG CAP PO SCH (09:46)
--- NOTE | 2019-01-22 10:20 | PRG ---
DATE OF SERVICE: 01/22/2019 SUBJECTIVE: She seems to be doing fairly well today. She is chewing on some ice chips this morning. OBJECTIVE: VITAL SIGNS: Temperature is 98.4, pulse 111, blood pressure 178/74, O2 sat 96% on nasal cannula. HEENT: Unremarkable. NECK: No JVD. LUNGS: Fairly clear anteriorly. CARDIAC: S1, S2. Regular. ABDOMEN: Somewhat tender to mid epigastric palpation. EXTREMITIES: No clubbing, cyanosis, or edema. LABORATORY DATA: No labs were done today. ASSESSMENT: 1. Status post antrectomy and gastrectomy with loop gastrojejunostomy complicated by duodenal stump leak. 2. Pain. 3. Reactive pleural effusion. PLAN: Continuing TPN and supportive care. From my standpoint, she can go to the surgical floor. Job ID: [id number]
--- NOTE | 2019-01-22 13:21 | PDOC.PN ---
- Subjective Encounter Start Date: 01/22/19 Encounter Start Time: 11:20 Subjective: pt up in bed feels better - Objective Resuscitation Status - Order Detail: 12/24/18 21:39 Resuscitation Status Routine Resuscitation Status: FULL: Full Resuscitation Vital Signs & Weight: Vital Signs (12 hours) Temp Pulse Resp BP Pulse Ox 01/22/19 12:49 94 16 98 01/22/19 12:05 97.7 F 01/22/19 09:33 154/73 H 01/22/19 09:30 105 H 154/73 H 01/22/19 08:00 98 01/22/19 07:34 98.4 F 01/22/19 07:27 98 01/22/19 07:26 105 H 24 H 98 01/22/19 07:22 111 H 20 98 01/22/19 04:08 99.8 F H Weight Admit Weight 125 lb 3.2 oz Weight 130 lb 6.4 oz Most Recent Monitor Data Heart Rate from ECG 97 NIBP 139/69 NIBP BP-Mean 92 Respiration from ECG 19 SpO2 98 I&O: 01/21/19 01/22/19 01/23/19 06:59 06:59 06:59 Intake Total 3257 742 Output Total 620 406 Balance 2637 336 Result Diagrams: 01/21/19 03:50 01/21/19 03:50 Additional Labs: Accuchecks 01/22/19 01/22/19 01/21/19 10:27 05:43 20:24 POC Glucose 222 H 211 H 150 H 01/21/19 16:13 POC Glucose 162 H Phys Exam - Physical Examination Neck: no nodes, no JVD, supple, full ROM Respiratory: no wheezing, no rales, no rhonchi, wheezing present, clear to auscultation bilateral Cardiovascular: RRR, no significant murmur, no rub, gallop, irregular Gastrointestinal: soft, non-tender, no distention, positive bowel sounds Dx/Plan (1) Acute respiratory failure Code(s): J96.00 - ACUTE RESPIRATORY FAILURE, UNSP W HYPOXIA OR HYPERCAPNIA Status: Resolved (2) Anemia due to acute blood loss Code(s): D62 - ACUTE POSTHEMORRHAGIC ANEMIA Status: Acute Comment: s/p total 5 unit PRBC (3) Perforated duodenal ulcer with hemorrhage Code(s): K26.6 - CHRONIC OR UNSP DUODENAL ULCER W BOTH HEMORRHAGE AND PERF Status: Acute Comment: required surgical repair this admission (4) S/P bypass gastrojejunostomy Code(s): Z98.0 - INTESTINAL BYPASS AND ANASTOMOSIS STATUS Status: Acute Comment: s/p re exploration of abdomen and wash out 12/29/18 (5) Upper GI bleed Code(s): K92.2 - GASTROINTESTINAL HEMORRHAGE, UNSPECIFIED Status: Resolved (6) Diabetes type 2, controlled Code(s): E11.9 - TYPE 2 DIABETES MELLITUS WITHOUT COMPLICATIONS Status: Chronic (7) HTN (hypertension) Code(s): I10 - ESSENTIAL (PRIMARY) HYPERTENSION Status: Chronic Qualifiers: Comment: labile control (8) Obesity (BMI 30.0-34.9) Code(s): E66.9 - OBESITY, UNSPECIFIED Status: Chronic - Plan will check bmp today, she may need some free water -: hh low stable, will monitor. pt's anxiety is controlled. -: she is doing well may be transferred out * . Review of Systems - Review of Systems Respiratory: negative: Cough, Dry, Shortness of Breath, Hemoptysis, SOB with Excertion, Pleuritic Pain, Sputum, Wheezing Cardiovascular: negative: chest pain, palpitations, orthopnea, paroxysmal nocturnal dyspnea, edema, light headedness, other Gastrointestinal: negative: Nausea, Vomiting, Abdominal Pain, Diarrhea, Constipation, Melena, Hematochezia, Other - Medications/Allergies Allergies/Adverse Reactions: Allergies Allergy/AdvReac Type Severity Reaction Status Date / Time ciprofloxacin Allergy Verified 11/06/18 19:36 Medications: Current Medications Acetaminophen (Tylenol) 1,000 mg PO Q6H PRN PRN Reason: Moderate to Severe Pain (6-10) Last Admin: 01/19/19 02:08 Dose: 1,000 mg Albuterol/Ipratropium (Duoneb) 3 ml NEB Q4H PRN PRN Reason: Wheezing Albuterol/Ipratropium (Duoneb) 3 ml NEB [id number] [facility] Last Admin: 01/22/19 12:49 Dose: 3 ml Amlodipine Besylate (Norvasc) 10 mg PO DAILY [facility] Last Admin: 01/22/19 09:30 Dose: 10 mg Arformoterol Tartrate (Brovana) 15 mcg NEB BID-RT [facility] Last Admin: 01/22/19 07:26 Dose: 15 mcg Ascorbic Acid (Vitamin C) 1,000 mg PO DAILY [facility] Last Admin: 01/22/19 09:32 Dose: 1,000 mg Budesonide (Pulmicort Neb Solution) 0.5 mg INH BID-RT [facility] Last Admin: 01/22/19 07:26 Dose: 0.5 mg Citalopram Hydrobromide (Celexa) 10 mg PO DAILY [facility] Last Admin: 01/22/19 09:33 Dose: 10 mg Clonidine (Catapres) 0.1 mg PO Q4H PRN PRN Reason: SBP Greater Than 180 Last Admin: 01/13/19 15:59 Dose: 0.1 mg Clonidine (Catapres) 0.2 mg PO BID [facility] Last Admin: 01/22/19 09:30 Dose: 0.2 mg Dextrose/Water (Dextrose 50%) 25 gm SLOW IVP PRN PRN PRN Reason: Hypoglycemia Diphenhydramine HCl (Benadryl) 25 mg IVP Q3H PRN PRN Reason: Itching Last Admin: 12/30/18 15:37 Dose: 25 mg Diphenhydramine HCl (Benadryl) 25 mg PO Q3H PRN PRN Reason: Itching Last Admin: 01/11/19 05:53 Dose: 25 mg Diphenhydramine HCl (Benadryl) 25 mg IM Q3H PRN PRN Reason: Itching Last Admin: 12/29/18 11:11 Dose: 25 mg Enoxaparin Sodium (Lovenox) 40 mg SC 2100 [facility] Last Admin: 01/21/19 20:37 Dose: 40 mg Fentanyl (Duragesic) 75 mcg TD Q3D [facility] Last Admin: 01/19/19 20:18 Dose: 75 mcg Gabapentin (Neurontin) 900 mg PO TID [facility] Last Admin: 01/22/19 09:33 Dose: 900 mg Glucagon (Glucagon) 1 mg IM PRN PRN PRN Reason: Hypoglycemia Hydralazine HCl (Apresoline) 10 mg SLOW IVP Q2H PRN PRN Reason: SBP > 170 or DBP > 100 Last Admin: 01/20/19 13:53 Dose: 10 mg Hydralazine HCl (Apresoline) 10 mg SLOW IVP Q3H PRN PRN Reason: SBP GREATER THAN 160 Last Admin: 01/08/19 14:56 Dose: 10 mg Dextrose/Water (D5w) 1,000 mls @ 0 mls/hr IV .Q0M PRN PRN Reason: Hypoglycemia Sodium Chloride (Normal Saline 0.9%) 1,000 mls @ 75 mls/hr IV .[id number] [facility] Last Admin: 01/22/19 01:20 Dose: Not Given Insulin Glargine 25 units/ (Miscellaneous Medication) 0.25 mls @ 0 mls/hr SC QAM [facility] Last Admin: 01/22/19 09:35 Dose: 0.25 mls Fat Emulsion Intravenous 100 ml/ Sodium Acetate 40 meq/Sodium Chloride 30 meq/ Potassium Chloride 20 meq/Potassium Acetate 40 meq/Potassium Phosphate 30 mmol/ Calcium Gluconate 10 meq/Magnesium Sulfate 15 meq/Multivitamins 10 ml/ Chromium/ Copper/Manganese/Seleni/Zn 5 ml/ Dextrose/Water/ Sterile Water/ Amino Acids 1, 157.9336 mls @ 48.247 mls/hr IV 1400 [facility] Last Admin: 01/21/19 14:58 Dose: 1,157.9336 mls Insulin Human Lispro (Humalog) 0 units SC .AGGRESSIVE SLIDING PRN; Protocol PRN Reason: AGGRESSIVE SLIDING SCALE Last Admin: 01/22/19 11:12 Dose: 6 unit Labetalol HCl (Normodyne) 20 mg SLOW IVP Q2H PRN PRN Reason: SBP Greater Than 180 Last Admin: 01/19/19 21:37 Dose: 20 mg Lisinopril (Zestril) 20 mg PO BID [facility] Last Admin: 01/22/19 09:33 Dose: 20 mg Lorazepam (Ativan) 1 mg PO BIDPRN PRN PRN Reason: Anxiety/Agitation Last Admin: 01/21/19 20:51 Dose: 1 mg Morphine Sulfate (Morphine) 2 mg SLOW IVP Q4H PRN PRN Reason: Pain IF UNABLE TO TAKE PO Last Admin: 01/19/19 22:00 Dose: 2 mg Multivitamins (Multivit, Chewable Sf) 1 tab PO DAILY [facility] Last Admin: 01/22/19 09:34 Dose: 1 tab Ondansetron HCl (Zofran) 4 mg IVP Q6H PRN PRN Reason: Nausea/Vomiting Last Admin: 05/30/19 05:32 Dose: 4 mg Pantoprazole Sodium (Protonix) 40 mg PO DAILY [facility] Last Admin: 01/22/19 09:31 Dose: 40 mg Phenol (Chloraseptic [place] 180 Ml Bot) 0 ml PO Q4H PRN PRN Reason: Sore Throat Last Admin: 12/31/18 05:25 Dose: 1 spray Phosphorus (Kphos Neutral) 250 mg PO TID-[facility] Last Admin: 01/22/19 11:27 Dose: 250 mg Potassium Chloride (K-Dur) 40 meq PO BID-[facility] Stop: 01/22/19 17:01 Last Admin: 01/22/19 09:46 Dose: 40 meq Sodium Chloride (Flush - Normal Saline) 10 ml IVF PRN PRN PRN Reason: Saline Flush Last Admin: 01/16/19 08:32 Dose: 10 ml Sterile Water (Bacteriostatic Water) 1 ml FS PRN PRN PRN Reason: RECONSTITUTION Tramadol HCl (Ultram) 50 mg PO Q6H PRN PRN Reason: Pain 1-5 Last Admin: 01/21/19 16:15 Dose: 50 mg Zinc Sulfate (Zinc Sulfate) 220 mg PO DAILY [facility] Last Admin: 01/22/19 09:46 Dose: 220 mg
[2019-01-22] MEDS: SODIUM ACETATE IV SCH (14:25)
[2019-01-22] MEDS: SODIUM CHLORIDE IV SCH (14:25)
[2019-01-22] MEDS: [UNRECOGNIZED DRUG - OTHER] IV SCH (14:25)
[2019-01-22] MEDS: FAT EMULSION IV SCH (14:25)
[2019-01-22 14:42] LABS: Anion Gap 15 mmol/L (10-20); BUN (Urea Nitrogen) 18 mg/dL (9.8-20.1); Calc. Creatinine Clearance 94 mL/min (70-130); Calcium 8.4 mg/dL (7.8-10.44); Carbon Dioxide 25 mmol/L (23-31); Chloride 111 mmol/L (98-107); Estimated GFR-MDRD Greater than 90; Glucose 107 mg/dL (80-115); Sodium 148 mmol/L (136-145)
[2019-01-22 14:45] LABS: Potassium 2.8 mmol/L (3.5-5.1)
[2019-01-22] MEDS ORDERED: Potassium Chloride 20 MEQ in Premix Bag 1 BAG IVPB SCH (15:15)
[2019-01-22] MEDS: fentaNYL 75 mcg/hour Patch TD SCH (16:10)
[2019-01-22] MEDS: Enoxaparin Sodium 40 MG/0.4 ML SYRINGE SC SCH (21:02)
[2019-01-22] MEDS: Lorazepam 1 MG TAB PO PRN (21:11)
[2019-01-23] MEDS: Acetaminophen 500 MG TAB PO PRN (03:28)
[2019-01-23 05:02] LABS: Anion Gap 12 mmol/L (10-20); BUN (Urea Nitrogen) 18 mg/dL (9.8-20.1); Calc. Creatinine Clearance 91 mL/min (70-130); Calcium 8.4 mg/dL (7.8-10.44); Carbon Dioxide 27 mmol/L (23-31); Chloride 110 mmol/L (98-107); Estimated GFR-MDRD Greater than 90; Glucose 232 mg/dL (80-115); Potassium 3.1 mmol/L (3.5-5.1); Sodium 146 mmol/L (136-145)
[2019-01-23 06:07] LABS: #Lymphocytes 1.3 thou/uL (1.20-3.40); #Monocytes 0.5 thou/uL (0.11-0.59); #Neutrophils 4.8 thou/uL (1.40-6.50); %Eosinophils 0.3 % (0.0-10.0); %Lymphocytes 19.2 % (21.0-51.0); %Monocytes 7.8 % (0.0-10.0); %Neutrophils 72.7 % (42.0-75.0); Hemoglobin 8.5 g/dL (12.0-16.0); Mean Corpuscular HGB CONC 32.8 g/dL (32.0-36.0); Mean Corpuscular Hemoglobin 29.1 pg (27.0-31.0); Mean Corpuscular Volume 88.7 fL (78.0-98.0); Mean Platelet Volume 8.4 fL (7.4-10.4); Platelet Count 558 thou/uL (130-400); RBC Distribution Width 15.2 % (11.5-14.5); Red Blood Cell (RBC) Count 2.91 mill/uL (4.20-5.40); White Blood Cell (WBC) Count 7.1 thou/uL (4.8-10.8)
[2019-01-23] MEDS: HumaLOG 300 UNITS/3 ML VIAL SC PRN ×3 (06:33→20:30)
[2019-01-23] MEDS: Sodium Chloride 0.9% 1,000 ML IV SCH ×2 (06:50→15:28)
[2019-01-23] MEDS: Arformoterol 15 MCG/2 ML NEB NEB SCH ×2 (08:00→18:59)
[2019-01-23] MEDS: Budesonide 0.5 MG/2 ML NEB INH SCH ×2 (08:01→18:58)
--- NOTE | 2019-01-23 08:24 | PRG ---
DATE OF SERVICE: 01/23/2019 SUBJECTIVE: This morning, she is awake, alert, and responsive. OBJECTIVE: VITAL SIGNS: Saturations are 98% on 2 L, pulse is 109, temperature 99.8, respiratory rate 19, blood pressure 170/80. CHEST: Decreased breath sounds. No wheezing. CARDIAC: Normal S1, S2. No gallops. ABDOMEN: No masses. LABORATORY STUDIES: Lytes are normal. Platelet count is normal. H and H is 8.5 and 25. ASSESSMENT: 1. Status post laparotomy. 2. Respiratory failure. 3. Pleural effusion, chronic pain. PLAN: The patient appears to have stabilized. Still having a lot of issues with breathing though better. Continue neb treatment, supportive care. We will follow. Job ID: [id number] MTDD
[2019-01-23] MEDS: Lisinopril 20 MG TAB PO SCH ×2 (09:34→20:29)
[2019-01-23] MEDS: cloNIDine 0.2 MG TAB PO SCH ×2 (09:35→20:29)
[2019-01-23] MEDS: Gabapentin 300 MG CAP PO SCH ×3 (09:36→20:29)
[2019-01-23] MEDS: Amlodipine 10 MG TAB PO SCH (09:37)
[2019-01-23] MEDS: Potassium Chloride 20 MEQ TAB PO SCH (09:37)
[2019-01-23] MEDS: K-Phos Neutral 250 MG TAB PO SCH ×3 (09:38→16:26)
[2019-01-23] MEDS: Citalopram 10 MG TAB PO SCH ×2 (09:39→09:40)
[2019-01-23] MEDS: Insulin Glargine 25 UNITS in Pre-Filled Syringe 1 EACH SC SCH (09:41)
[2019-01-23] MEDS: Multivit, Chewable SF 1 TAB PO SCH (09:41)
[2019-01-23] MEDS: Ascorbic Acid 500 mg Chewable Tablet PO SCH (09:41)
[2019-01-23] MEDS: Zinc Sulfate 220 MG CAP PO SCH (09:45)
--- NOTE | 2019-01-23 12:39 | PDOC.PN ---
- Subjective Encounter Start Date: 01/23/19 Encounter Start Time: 13:30 Subjective: Patient feeling a bit better. Off Bipap. Hungry, though still NPO except -: meds for now. On TPN. Denies abdominal pain. - Objective Resuscitation Status - Order Detail: 12/24/18 21:39 Resuscitation Status Routine Resuscitation Status: FULL: Full Resuscitation MAR Reviewed: Yes Vital Signs & Weight: Vital Signs (12 hours) Temp Pulse Resp BP Pulse Ox 01/23/19 10:22 99.2 F 01/23/19 09:37 109 H 01/23/19 09:35 140/71 01/23/19 09:34 140/71 01/23/19 08:01 98 01/23/19 08:00 98 01/23/19 07:58 109 H 19 98 01/23/19 07:07 99.8 F H 01/23/19 04:00 99.6 F 01/23/19 00:46 103 H 18 98 Weight Admit Weight 125 lb 3.2 oz Weight 130 lb 14.4 oz Most Recent Monitor Data Heart Rate from ECG 100 NIBP 109/69 NIBP BP-Mean 82 Respiration from ECG 18 SpO2 98 I&O: 01/22/19 01/23/19 01/24/19 06:59 06:59 06:59 Intake Total 742 2599.6 Output Total 406 1452 Balance 336 1147.6 Result Diagrams: 01/23/19 04:24 01/23/19 04:24 Additional Labs: Accuchecks 01/23/19 01/23/19 01/22/19 10:03 05:48 20:09 POC Glucose 133 H 252 H 185 H 01/22/19 16:54 POC Glucose 139 H Phys Exam - Physical Examination Constitutional: NAD HEENT: moist MMs Respiratory: no wheezing, no rales, no rhonchi Cardiovascular: RRR Gastrointestinal: soft, positive bowel sounds Neurological: non-focal Psychiatric: A&O x 3 Deviation from normal: sleepy, arousable Dx/Plan (1) Duodenal ulcer, perforated Code(s): K26.5 - CHRONIC OR UNSPECIFIED DUODENAL ULCER WITH PERFORATION Status : Acute Comment: s/p antrectomy, with duodenal stump leak postop, Dr. Morgan following, CT with persistent leak 01/10/19, CT guided percutaneous drain placement 01/11/19, no evidence of persistent leak on recent CTs, observing (2) Anemia due to acute blood loss Code(s): D62 - ACUTE POSTHEMORRHAGIC ANEMIA Status: Acute Comment: s/p total 5 unit PRBC, stable for last couple weeks now (3) Transaminitis Code(s): R74.0 - NONSPEC ELEV OF LEVELS OF TRANSAMNS & LACTIC ACID DEHYDRGNSE Status: Acute (4) Diabetes type 2, controlled Code(s): E11.9 - TYPE 2 DIABETES MELLITUS WITHOUT COMPLICATIONS Status: Chronic (5) Dyslipidemia Code(s): E78.5 - HYPERLIPIDEMIA, UNSPECIFIED Status: Chronic (6) HTN (hypertension) Code(s): I10 - ESSENTIAL (PRIMARY) HYPERTENSION Status: Chronic Qualifiers: Comment: labile control (7) Neuropathic pain Status: Chronic (8) Obesity (BMI 30.0-34.9) Code(s): E66.9 - OBESITY, UNSPECIFIED Status: Chronic (9) Restless leg syndrome Status: Chronic (10) Hypokalemia Code(s): E87.6 - HYPOKALEMIA Status: Acute Comment: repleting (11) Pneumonia Code(s): J18.9 - PNEUMONIA, UNSPECIFIED ORGANISM Status: Resolved Qualifiers: Pneumonia type: due to methicillin-resistant Staphylococcus aureus (MRSA) Comment: including tracheobronchitis, finished course of Linezolid and Zosyn - Plan cont current plan of care, PT/OT off Bipap -: recieving TPN * . - Discharge Day Encounter end time: 13:45
[2019-01-23] MEDS: Lorazepam 1 MG TAB PO PRN ×2 (13:07→21:39)
[2019-01-23] MEDS: [UNRECOGNIZED DRUG - OTHER] IV SCH (14:40)
[2019-01-23] MEDS: SODIUM CHLORIDE IV SCH (14:40)
[2019-01-23] MEDS: SODIUM ACETATE IV SCH (14:40)
[2019-01-23] MEDS: FAT EMULSION IV SCH (14:40)
--- NOTE | 2019-01-23 17:04 | PRG ---
DATE OF SERVICE: 01/23/2019 SUBJECTIVE: The patient says she denies any pain. She has really thirsty. She wants to try and eat something. She said the Dr. Morgan was letting her to drink some fluids, but when she got transferred to this unit, she was made n.p.o. OBJECTIVE: VITAL SIGNS: She is on TPN. Her temperature is 97.5, heart rate is 95, and blood pressure 140/71. GENERAL: She is awake, alert. Does not appear to be in any distress. ABDOMEN: Soft. She has a drain in the right upper quadrant that is putting out minimal, but it is somewhat thick. LABORATORY DATA: Her white count is 7.1, H and H 8.5 and 25, platelet count 558. Electrolytes; sodium is 146, potassium 3.1, creatinine 0.59, and glucose 232. ASSESSMENT: Status post perforated ulcer with duodenal fistula, which appears to be closing. She has been diverted. PLAN: We will try some sips of clear liquids if there is really no increase in drain output prior to get the drain out. Job ID: [id number]
[2019-01-23] MEDS: Enoxaparin Sodium 40 MG/0.4 ML SYRINGE SC SCH (20:30)
[2019-01-24] MEDS: Sodium Chloride 0.9% 1,000 ML IV SCH ×2 (03:30→20:17)
[2019-01-24 04:04] LABS: Anion Gap 8 mmol/L (10-20); BUN (Urea Nitrogen) 20 mg/dL (9.8-20.1); Calc. Creatinine Clearance 87 mL/min (70-130); Calcium 8.5 mg/dL (7.8-10.44); Carbon Dioxide 31 mmol/L (23-31); Chloride 104 mmol/L (98-107); Estimated GFR-MDRD Greater than 90; Glucose 165 mg/dL (80-115); Potassium 3.3 mmol/L (3.5-5.1); Sodium 140 mmol/L (136-145)
[2019-01-24] MEDS: HumaLOG 300 UNITS/3 ML VIAL SC PRN ×2 (06:04→11:40)
[2019-01-24] MEDS: Gabapentin 300 MG CAP PO SCH ×3 (08:11→20:17)
[2019-01-24] MEDS: Lisinopril 20 MG TAB PO SCH ×2 (08:12→20:17)
[2019-01-24] MEDS: Amlodipine 10 MG TAB PO SCH (08:12)
[2019-01-24] MEDS: cloNIDine 0.2 MG TAB PO SCH ×2 (08:12→20:17)
[2019-01-24] MEDS: K-Phos Neutral 250 MG TAB PO SCH ×3 (08:13→18:00)
[2019-01-24] MEDS: Insulin Glargine 25 UNITS in Pre-Filled Syringe 1 EACH SC SCH (08:13)
[2019-01-24] MEDS: Ascorbic Acid 500 mg Chewable Tablet PO SCH (08:13)
[2019-01-24] MEDS: Zinc Sulfate 220 MG CAP PO SCH (08:14)
[2019-01-24] MEDS: Multivit, Chewable SF 1 TAB PO SCH (08:14)
[2019-01-24] MEDS: Budesonide 0.5 MG/2 ML NEB INH SCH ×2 (08:22→18:36)
[2019-01-24] MEDS: Arformoterol 15 MCG/2 ML NEB NEB SCH ×2 (08:22→18:34)
--- NOTE | 2019-01-24 08:52 | PRG ---
DATE OF SERVICE: 01/24/2019 SUBJECTIVE: This morning, the patient is better. She is less short of breath. She is not wearing a CPAP or BiPAP at nighttime. Less anxious. Less agitated. OBJECTIVE: VITAL SIGNS: Pulse is 101, temperature is 98.2, blood pressure is 180/70, saturations on 2 L. CHEST: No wheezing, crackles. CARDIAC: Normal S1, S2. No gallops. ABDOMEN: No masses. IMPRESSION: Status post laparotomy, respiratory failure, right pleural effusion, asthma. PLAN: The patient can be transferred out of the MICU to surgical floor. Continue PT, supportive care. We will follow. Job ID: [id number]
--- NOTE | 2019-01-24 11:30 | PDOC.PN ---
- Subjective Encounter Start Date: 01/24/19 Encounter Start Time: 11:25 Subjective: f/u s/p perforated ulcer with duodenal fistula and slow return to po intake -: with main nutrition with TPN. - Objective Resuscitation Status - Order Detail: 12/24/18 21:39 Resuscitation Status Routine Resuscitation Status: FULL: Full Resuscitation MAR Reviewed: Yes Vital Signs & Weight: Vital Signs (12 hours) Temp Pulse Resp BP BP Pulse Ox 01/24/19 10:48 97.7 F 95 18 144/77 H 96 01/24/19 09:00 95 01/24/19 08:24 97 01/24/19 08:20 104 H 16 97 01/24/19 08:12 101 H 169/84 H 01/24/19 07:39 98 01/24/19 07:10 98.2 F 01/24/19 04:00 98.1 F 01/24/19 00:00 98.8 F 101 H 15 98 Weight Admit Weight 125 lb 3.2 oz Weight 131 lb 2.801 oz Most Recent Monitor Data Heart Rate from ECG 105 NIBP 169/84 NIBP BP-Mean 112 Respiration from ECG 20 SpO2 97 I&O: 01/23/19 01/24/19 01/25/19 06:59 06:59 06:59 Intake Total 2599.6 3219.2 Output Total 1452 1502 Balance 1147.6 1717.2 Result Diagrams: 01/23/19 04:24 01/24/19 03:35 Additional Labs: Accuchecks 01/24/19 01/23/19 01/23/19 11:04 20:24 16:08 POC Glucose 166 H 231 H 187 H Laboratory Tests 01/18/19 01/19/19 01/20/19 05:08 05:30 07:39 Hgb 6.2 L 8.3 L 9.0 L Sodium Potassium 01/21/19 01/23/19 03:50 04:24 Hgb 8.1 L Sodium 146 H Potassium 3.1 L Phys Exam - Physical Examination Constitutional: NAD HEENT: PERRLA, sclera anicteric, oral pharynx no lesions Neck: no nodes, no JVD, supple, full ROM Respiratory: no wheezing, no rales, no rhonchi, clear to auscultation bilateral S1, S2 Cardiovascular: RRR, no significant murmur, no rub, gallop RUQ ELEANOR drain Gastrointestinal: soft, non-tender, no distention, positive bowel sounds Musculoskeletal: no edema, pulses present Neurological: normal sensation, moves all 4 limbs Psychiatric: A&O x 3 Skin: normal turgor, cap refill <2 seconds Dx/Plan (1) Duodenal ulcer, perforated Code(s): K26.5 - CHRONIC OR UNSPECIFIED DUODENAL ULCER WITH PERFORATION Status : Acute Comment: s/p antrectomy, with duodenal stump leak postop, Dr. Morgan following, CT with persistent leak 01/10/19, CT guided percutaneous drain placement 01/11/19, no evidence of persistent leak on recent CTs, observing, clear liquids started (2) Anemia due to acute blood loss Code(s): D62 - ACUTE POSTHEMORRHAGIC ANEMIA Status: Acute Comment: s/p total 7 unit PRBC, H/H stable currently (3) Hypokalemia Code(s): E87.6 - HYPOKALEMIA Status: Acute Comment: KCL replacement, serial K+ monitoring (4) Chronic pain disorder Code(s): G89.4 - CHRONIC PAIN SYNDROME Status: Chronic (5) Diabetes type 2, controlled Code(s): E11.9 - TYPE 2 DIABETES MELLITUS WITHOUT COMPLICATIONS Status: Chronic Qualifiers: Diabetes mellitus mcfp insulin use: with mcfp use Comment: ISS, Lantus, ADA when tolerating po intake (6) HTN (hypertension) Code(s): I10 - ESSENTIAL (PRIMARY) HYPERTENSION Status: Chronic Qualifiers: Hypertension type: essential hypertension Comment: labile control - Plan PT/OT, social service liaison, speech therapy, respiratory therapy, DVT proph w/SCDs Stable currently -: Continue PT for mobilization, ROM exercises -: Clear liquids as tolerated -: Continue nutriotional support with TPN -: CM for SNF options * .
[2019-01-24] MEDS: SODIUM CHLORIDE IV SCH (14:01)
[2019-01-24] MEDS: [UNRECOGNIZED DRUG - OTHER] IV SCH (14:01)
[2019-01-24] MEDS: FAT EMULSION IV SCH (14:01)
[2019-01-24] MEDS: SODIUM ACETATE IV SCH (14:01)
[2019-01-24] MEDS: hydrALAZINE 20 MG/ML VIAL SLOW IVP PRN (15:33)
--- NOTE | 2019-01-24 16:42 | PRG ---
DATE OF SERVICE: 01/24/2019 SUBJECTIVE: The patient feels a lot better. She has been transferred up to the surgical floor. She is tolerating clear liquids well. She has minimal out her ELEANOR drain. OBJECTIVE: VITAL SIGNS: Temperature 98.4, pulse 100, blood pressure 171/81. GENERAL: She is awake, does not appear to be in any distress. ABDOMEN: Soft, just mildly tender. She has a drain in the right upper quadrant. LABORATORY DATA: Her white count is 7.1, H and H 8 and 25, platelet count 558. ASSESSMENT: Stable. PLAN: Full liquid diet. Probably, we can get the drain out. Dr. Qiu will be covering. Job ID: [id number]
[2019-01-24] MEDS: Enoxaparin Sodium 40 MG/0.4 ML SYRINGE SC SCH (20:16)
[2019-01-24] MEDS: Lorazepam 1 MG TAB PO PRN (20:24)
[2019-01-25] MEDS: Budesonide 0.5 MG/2 ML NEB INH SCH ×2 (06:31→18:51)
[2019-01-25] MEDS: Arformoterol 15 MCG/2 ML NEB NEB SCH ×2 (06:31→18:53)
[2019-01-25] MEDS: Ondansetron PF 4 MG/2 ML Vial IVP PRN (06:33)
[2019-01-25] MEDS: Morphine 4 MG/ML VIAL SLOW IVP PRN (06:33)
[2019-01-25] MEDS: Lisinopril 20 MG TAB PO SCH ×2 (08:27→19:47)
[2019-01-25] MEDS: Gabapentin 300 MG CAP PO SCH ×3 (08:27→19:48)
[2019-01-25] MEDS: Ascorbic Acid 500 mg Chewable Tablet PO SCH (08:28)
[2019-01-25] MEDS: Citalopram 10 MG TAB PO SCH (08:28)
[2019-01-25] MEDS: Zinc Sulfate 220 MG CAP PO SCH (08:29)
[2019-01-25] MEDS: K-Phos Neutral 250 MG TAB PO SCH ×3 (08:29→18:55)
[2019-01-25] MEDS: cloNIDine 0.2 MG TAB PO SCH ×2 (08:29→19:47)
[2019-01-25] MEDS: Amlodipine 10 MG TAB PO SCH (08:30)
[2019-01-25] MEDS: Multivit, Chewable SF 1 TAB PO SCH (08:43)
[2019-01-25] MEDS ORDERED: traMADol HCl 50 MG TAB PO PRN (08:43)
[2019-01-25] MEDS: Insulin Glargine 25 UNITS in Pre-Filled Syringe 1 EACH SC SCH (08:44)
--- NOTE | 2019-01-25 09:15 | PRG ---
DATE OF SERVICE: 01/25/2019 SUBJECTIVE: This morning, she is better, less pain, less shortness of breath. OBJECTIVE: VITAL SIGNS: Saturations are 96% on 2 L, respiratory rate 22, pulse 114, temperature 98, blood pressure 154/78. CHEST: No wheezing. CARDIAC: Sinus tach. ABDOMEN: Soft. IMPRESSION: 1. Status post laparotomy, duodenal ulcer bleed, status post leak, bilious. 2. Respiratory failure, retained secretions, asthma. Pulmonary mauricio, scheduled Brovana twice a day and neb treatments p.r.n. PT, nutrition. Will follow. Job ID: [id number]
--- NOTE | 2019-01-25 09:28 | PRG ---
DATE OF SERVICE: 01/25/2019 SUBJECTIVE: The patient is a 63-year-old female. She is status post operation per Dr. Morgan one month ago today for perforated duodenal ulcer with stricture, for which an antrectomy and gastrojejunostomy was performed. A few days later, he re-explored her abdomen and explored the duodenal stump. She had an elevated bilirubin that was concerning. This returned to normal on its own over time. She had a duodenal stump leak that was drained by Radiology on January 11. This drain output had become negligible and the drain was removed by Dr. Mckeon yesterday. The patient is now on a full liquid diet, which she is tolerating without nausea or vomiting. She is having bowel movements. Her TPN has been titrated down to 48 mL/h. She is off all antibiotics. She is on a Duragesic patch for pain control. She apparently has a history of chronic pain, for which she was on pain medication prior to presentation. I am told that she is fairly weak and has difficulty with ambulating. She has been seen by Physical Therapy and Occupational Therapy. OBJECTIVE: VITAL SIGNS: On examination today, she is afebrile, as she has been for a number of days. Her pulse is a little bit elevated at 103 to 114, but this is stable for her. Blood pressure is 154/78. LUNGS: Clear to auscultation anteriorly, but she has a limited respiratory effort. HEART: Regular rate and rhythm. ABDOMEN: Soft. Incision is nicely healed. Bowel sounds are present and normoactive. LABORATORY DATA: Her CBC from 2 days ago revealed a white blood cell count of 7.1 with a hemoglobin of 8.5. Chemistry panel from yesterday revealed a potassium that was a little bit low. Blood sugars are a little bit elevated between 160 and 200. ASSESSMENT: She appears to be stable a month out from her surgery. She as mentioned, is tolerating her diet and off antibiotics. We should be able to wean her TPN, if she continues to progress in her diet. Her primary problem appears to be decondition and for which she will require significant ongoing rehabilitation. I will request Case Management to help with placement either at rehab or fdc facility. She should be ready for discharge in the next 1 to 2 days. Her IV fluids can be discontinued. I will start iron sulfate orally to help with her anemia. Job ID: [id number]
[2019-01-25] MEDS: traMADol HCl 50 MG TAB PO PRN (15:06)
[2019-01-25] MEDS: Acetaminophen 500 MG TAB PO PRN (15:06)
[2019-01-25] MEDS: SODIUM ACETATE IV SCH (15:38)
[2019-01-25] MEDS: Sodium Chloride 0.9% 1,000 ML IV SCH ×2 (15:38→19:52)
[2019-01-25] MEDS: FAT EMULSION IV SCH (15:38)
[2019-01-25] MEDS: SODIUM CHLORIDE IV SCH (15:38)
[2019-01-25] MEDS: [UNRECOGNIZED DRUG - OTHER] IV SCH (15:38)
[2019-01-25] MEDS: fentaNYL 75 mcg/hour Patch TD SCH (15:44)
--- NOTE | 2019-01-25 16:22 | PDOC.PN ---
- Subjective Encounter Start Date: 01/25/19 Encounter Start Time: 16:20 Subjective: f/u s/p perforated duodenal ulcer with stump leak and CT guided -: drainage and now d/c drain. Tolerating po intake with plans to wean -: off TPN. Remains deconditioned and working with PT/OT. - Objective Resuscitation Status - Order Detail: 12/24/18 21:39 Resuscitation Status Routine Resuscitation Status: FULL: Full Resuscitation MAR Reviewed: Yes Vital Signs & Weight: Vital Signs (12 hours) Temp Pulse Resp BP BP BP Pulse Ox 01/25/19 15:49 98.5 F 105 H 18 159/78 H 96 01/25/19 15:24 120 H 20 01/25/19 12:00 97.6 F 103 H 14 138/75 95 01/25/19 10:26 01/25/19 08:00 98.3 F 114 H 22 H 160/75 H 96 01/25/19 07:25 94 L 01/25/19 06:31 104 H 24 H 94 L 01/25/19 04:35 98.9 F 103 H 20 154/78 H 96 Pulse Ox Pulse Ox 01/25/19 15:49 01/25/19 15:24 01/25/19 12:00 01/25/19 10:26 91 L 92 L 01/25/19 08:00 01/25/19 07:25 01/25/19 06:31 01/25/19 04:35 Weight Admit Weight 125 lb 3.2 oz Weight 131 lb Most Recent Monitor Data Heart Rate from ECG 105 NIBP 169/84 NIBP BP-Mean 112 Respiration from ECG 20 SpO2 97 I&O: 01/24/19 01/25/19 01/26/19 06:59 06:59 06:59 Intake Total 3219.2 3299 Output Total 1502 1250 Balance 1717.2 2049 Result Diagrams: 01/23/19 04:24 01/24/19 03:35 Additional Labs: Accuchecks 01/25/19 01/25/19 01/24/19 11:35 05:42 20:45 POC Glucose 244 H 206 H 147 H Laboratory Tests 01/18/19 01/19/19 01/20/19 05:08 05:30 07:39 Hgb 6.2 L 8.3 L 9.0 L Sodium Potassium 01/21/19 01/23/19 03:50 04:24 Hgb 8.1 L Sodium 146 H Potassium 3.1 L Phys Exam - Physical Examination Constitutional: NAD HEENT: PERRLA, sclera anicteric, oral pharynx no lesions Neck: no nodes, no JVD, supple, full ROM Respiratory: no wheezing, no rales, no rhonchi, clear to auscultation bilateral tachycardic S1, S2 Cardiovascular: no significant murmur, no rub, gallop Gastrointestinal: soft, non-tender, no distention, positive bowel sounds Musculoskeletal: no edema, pulses present Neurological: normal sensation, moves all 4 limbs Psychiatric: A&O x 3 Skin: normal turgor, cap refill <2 seconds Dx/Plan (1) Duodenal ulcer, perforated Code(s): K26.5 - CHRONIC OR UNSPECIFIED DUODENAL ULCER WITH PERFORATION Status : Acute Comment: s/p antrectomy, with duodenal stump leak postop, Dr. Morgan following, CT with persistent leak 01/10/19, CT guided percutaneous drain placement 01/11/19, no evidence of persistent leak on recent CTs, observing, full liquids started (2) Anemia due to acute blood loss Code(s): D62 - ACUTE POSTHEMORRHAGIC ANEMIA Status: Acute Comment: s/p total 7 unit PRBC, H/H stable currently (3) Hypokalemia Code(s): E87.6 - HYPOKALEMIA Status: Acute Comment: KCL replacement, serial K+ monitoring (4) Chronic pain disorder Code(s): G89.4 - CHRONIC PAIN SYNDROME Status: Chronic (5) Diabetes type 2, controlled Code(s): E11.9 - TYPE 2 DIABETES MELLITUS WITHOUT COMPLICATIONS Status: Chronic Qualifiers: Diabetes mellitus file system installer insulin use: with jail use Comment: ISS, Lantus, ADA when tolerating po intake (6) HTN (hypertension) Code(s): I10 - ESSENTIAL (PRIMARY) HYPERTENSION Status: Chronic Qualifiers: Hypertension type: essential hypertension Comment: labile control - Plan PT/OT, social group worker, respiratory therapy, out of bed/ambulate, DVT proph w/ SCDs Stable currently -: Advancing diet -: Wean off TPN -: OOB/PT for mobilization -: CM for SNF options * AM lab: CMP, CBC
[2019-01-25] MEDS: Ferrous Sulfate 325 MG TAB PO SCH (18:55)
[2019-01-25] MEDS: Enoxaparin Sodium 40 MG/0.4 ML SYRINGE SC SCH (19:47)
[2019-01-25] MEDS: Lorazepam 1 MG TAB PO PRN (19:47)
[2019-01-26] MEDS ORDERED: hydrALAZINE 25 MG TAB ONE (06:37)
[2019-01-26] MEDS ORDERED: hydrALAZINE 20 MG/ML VIAL ONE (06:48)
[2019-01-26] MEDS ORDERED: Ondansetron PF 4 MG/2 ML Vial ONE (06:51)
[2019-01-26] MEDS: Arformoterol 15 MCG/2 ML NEB NEB SCH ×3 (07:55→20:27)
[2019-01-26] MEDS: Budesonide 0.5 MG/2 ML NEB INH SCH ×3 (07:55→20:25)
[2019-01-26] MEDS ORDERED: Furosemide 40 MG/4 ML VIAL SLOW IVP SCH (08:45)
--- NOTE | 2019-01-26 09:01 | PRG ---
DATE OF SERVICE: 01/26/2019 SUBJECTIVE: This morning, she is transferred back to the MICU. Nurses tell me she was having respiratory distress last night, using some accessory muscles. OBJECTIVE: VITAL SIGNS: Her saturations are 94% on 2 L, temperature 98, pulse 104, blood pressure 154/71. CHEST: No wheezing. CARDIAC: Normal S1, S2. No gallops. ABDOMEN: No masses. IMPRESSION: Recurrent respiratory failure distress, status post laparotomy. Unfortunately, it is unclear what additional treatment can be offered to this patient. she has recurrent evidence of respiratory distress, relatively unremarkable physical findings. Surgery is going to contemplate repeating a CT of the abdomen to see whether she has worsening fluid collection. We will review chest x-ray today. Continue otherwise supportive care, nutrition. We will follow. Job ID: [id number] MTDD
--- NOTE | 2019-01-26 10:01 | PDOC.PN ---
- Subjective Encounter Start Date: 01/26/19 Encounter Start Time: 07:30 Patient was seen today in follow-up of duodenal ulcer with perforation. She was noted to be short of breath through the night. She also was noted to be more lethargic than usual. - Objective Resuscitation Status - Order Detail: 12/24/18 21:39 Resuscitation Status Routine Resuscitation Status: FULL: Full Resuscitation MAR Reviewed: Yes Vital Signs & Weight: Vital Signs (12 hours) Pulse 01/26/19 09:47 104 H Weight Admit Weight 125 lb 3.2 oz Weight 131 lb Most Recent Monitor Data Heart Rate from ECG 105 NIBP 169/84 NIBP BP-Mean 112 Respiration from ECG 20 SpO2 97 I&O: 01/25/19 01/26/19 01/27/19 06:59 06:59 06:59 Intake Total 3299 1180 Output Total 1250 950 Balance 2049 230 Result Diagrams: 01/23/19 04:24 01/24/19 03:35 Additional Labs: Accuchecks 01/26/19 01/25/19 01/25/19 05:39 21:13 16:25 POC Glucose 140 H 134 H 135 H 01/25/19 11:35 POC Glucose 244 H Phys Exam - Physical Examination HEENT: PERRLA Respiratory: no wheezing, no rales, no rhonchi Cardiovascular: RRR tacycardic Gastrointestinal: soft, no distention, positive bowel sounds + mild diffuse tenderness Musculoskeletal: pulses present, edema present Dx/Plan (1) Respiratory failure Code(s): J96.90 - RESPIRATORY FAILURE, UNSP, UNSP W HYPOXIA OR HYPERCAPNIA Status: Acute (2) Duodenal ulcer, perforated Code(s): K26.5 - CHRONIC OR UNSPECIFIED DUODENAL ULCER WITH PERFORATION Status : Acute Comment: s/p antrectomy, with duodenal stump leak postop, Dr. Morgan following, CT with persistent leak 01/10/19, CT guided percutaneous drain placement 01/11/19, no evidence of persistent leak on recent CTs, observing, full liquids started (3) Chronic pain disorder Code(s): G89.4 - CHRONIC PAIN SYNDROME Status: Chronic (4) Diabetes type 2, controlled Code(s): E11.9 - TYPE 2 DIABETES MELLITUS WITHOUT COMPLICATIONS Status: Chronic Qualifiers: Diabetes mellitus long term care phlebotomist insulin use: with long term care phlebotomist use Comment: ISS, Lantus, ADA when tolerating po intake (5) HTN (hypertension) Code(s): I10 - ESSENTIAL (PRIMARY) HYPERTENSION Status: Chronic Qualifiers: Hypertension type: essential hypertension Comment: labile control - Plan * Respiratory distress- she has been moved to the [facility], and discussed with Dr. Wyatt * Will place her on BiPAP if needed * Will check a stat EKG and ABG were ordered, and results noted * Still awaiting chest X-ray results * DM- blood glucose is stable * Recent Duodenal ulcer- a repeat CT scan of the abdomen is planned * HTN- blood pressure has been in an acceptable range * Await further recommendations from Surgery.
[2019-01-26] MEDS ORDERED: Iopamidol 370 76% 50 ML VIAL FS ONE (10:03)
[2019-01-26] MEDS ORDERED: ISOVUE-370 76%-LOCM 1 ML ONE (10:03)
[2019-01-26] MEDS: cloNIDine 0.2 MG TAB PO SCH (10:19)
[2019-01-26] MEDS: Amlodipine 10 MG TAB PO SCH (10:20)
[2019-01-26] MEDS: Lisinopril 20 MG TAB PO SCH (10:20)
[2019-01-26] MEDS: Gabapentin 300 MG CAP PO SCH ×3 (10:20→21:45)
[2019-01-26] MEDS: Ascorbic Acid 500 mg Chewable Tablet PO SCH (10:20)
[2019-01-26] MEDS: Sodium Chloride 0.9% 1,000 ML IV SCH ×2 (10:21→19:55)
[2019-01-26] MEDS: Insulin Glargine 25 UNITS in Pre-Filled Syringe 1 EACH SC SCH (10:21)
[2019-01-26 11:07] LABS: Troponin I 0.014 ng/mL (< 0.028)
--- NOTE | 2019-01-26 11:13 | RAD ---
CHEST ONE VIEW: HISTORY: Congestive heart failure. COMPARISON: 01/19/2019 FINDINGS: Heart size is enlarged. Large right effusion, enlarging. No pneumothorax. PICC tip in good positio n. Mild pulmonary vascular congestion and developing edema. IMPRESSION: 1. Worsening large right pleural effusion. 2. Worsening pulmonary edema. POS: CET
--- NOTE | 2019-01-26 11:23 | OP ---
DATE OF PROCEDURE: 01/26/2019 INDICATIONS FOR PROCEDURE: Maisha Qureshi is a 63-year-old female. X-ray surprisingly shows recurrence of the right pleural effusion. DESCRIPTION OF PROCEDURE: After informed consent, the right posterior thorax was cleaned with chlorhexidine. 1% Xylocaine was infiltrated into the right 8th intercostal space in the midscapular line. Pleural cavity was entered and initially 20 mL of slightly turbid sanguinous fluid was removed. Thereafter, using an 8-Italian catheter, additional 300 mL was removed with some difficulty. The patient tolerated the procedure well. Pleural effusion was sent for Gram stain and C and S. Please note, I discussed with surgery and the need to repeat a CT chest and abdomen to see whether she has pleural effusion secondary to sympathetic subdiaphragmatic process. Job ID: [id number]
[2019-01-26 11:49] LABS: ALT (SGPT) 102 U/L (8-55); AST (SGOT) 55 U/L (5-34); Albumin 2.9 g/dL (3.4-4.8); Alkaline Phosphatase 166 U/L (40-150); Anion Gap 16 mmol/L (10-20); BUN (Urea Nitrogen) 18 mg/dL (9.8-20.1); Bilirubin, Total 0.5 mg/dL (0.2-1.2); Calc. Creatinine Clearance 81 mL/min (70-130); Calcium 8.8 mg/dL (7.8-10.44); Carbon Dioxide 26 mmol/L (23-31); Chloride 98 mmol/L (98-107); Estimated GFR-MDRD 89; Globulin 4.5 g/dL (2.4-3.5); Glucose 176 mg/dL (80-115); Potassium 3.5 mmol/L (3.5-5.1); Protein, Total 7.4 g/dL (6.0-8.3); Sodium 136 mmol/L (136-145)
[2019-01-26 12:37] LABS: Actual Bicarbonate (HCO3a) 30.2 mEq/L (22-28); Analyzer IN Cardio ER; Base Excess (BEa) 3.1 mEq/L (-2.0 to +3.0); CO2 Tension 58.8 mmHg (35.0-45.0); Calcium, Ionized 1.17 mmol/L (1.12-1.30); Hemoglobin (Hb) 11.1 g/dL (12.0-16.0); O2 Tension (PaO2) 79.7 mmHg (> 80.0); Potassium - ABG Lab 3.43 mmol/L (3.70-5.30); Puncture Site L.R.; pH, Arterial 7.33 (7.35-7.45)
[2019-01-26 12:55] LABS: #Lymphocytes 0.7 thou/uL (1.20-3.40); #Monocytes 0.3 thou/uL (0.11-0.59); #Neutrophils 7.5 thou/uL (1.40-6.50); %Basophils 0.1 % (0.0-1.0); %Eosinophils 0.1 % (0.0-10.0); %Lymphocytes 8.1 % (21.0-51.0); %Monocytes 3.8 % (0.0-10.0); %Neutrophils 87.9 % (42.0-75.0); Hemoglobin 8.4 g/dL (12.0-16.0); Mean Corpuscular HGB CONC 31.2 g/dL (32.0-36.0); Mean Corpuscular Volume 89.5 fL (78.0-98.0); Platelet Count 504 thou/uL (130-400); White Blood Cell (WBC) Count 8.5 thou/uL (4.8-10.8)
[2019-01-26] MEDS: Ferrous Sulfate 325 MG TAB PO SCH ×2 (13:08→20:52)
[2019-01-26] MEDS: Multivit, Chewable SF 1 TAB PO SCH (13:08)
[2019-01-26] MEDS: K-Phos Neutral 250 MG TAB PO SCH ×3 (13:08→20:52)
[2019-01-26] MEDS: Zinc Sulfate 220 MG CAP PO SCH (13:08)
[2019-01-26] MEDS: Citalopram 10 MG TAB PO SCH (13:10)
[2019-01-26] MEDS: traMADol HCl 50 MG TAB PO PRN (13:11)
[2019-01-26] MEDS: Acetaminophen 500 MG TAB PO PRN (13:12)
--- NOTE | 2019-01-26 13:17 | RAD ---
ONE VIEW CHEST: 01/26/19 COMPARISON: 01/26/19 at 8:51 a.m. FINDINGS: Stable PICC line and stable decreased lung volumes with opacification of the left and right lung. No pneumothorax. IMPRESSION: Stable pulmonary edema and large right sided pleural effusion. POS: [facility]
[2019-01-26 14:07] LABS: Fluid, Triglycerides 35 mg/dL (Not Available); Pleural Fluid, Amylase Less than 30 U/L (Not Available); Pleural Fluid, Glucose 177 mg/dL; Pleural Fluid, LDH 305 U/L (Not Available); Pleural Fluid, Protein 3.5 g/dL
[2019-01-26] MEDS ORDERED: Rocuronium Bromide 10 MG/ML (10ML VIAL) ONE (15:20)
[2019-01-26 15:27] LABS: BF Color Yellow; Body Fluid Source Thoracentesis Fluid; Clarity Hazy (Clear)
[2019-01-26 15:28] LABS: RBC Background Count 0.001; Tube # EDTA; WBC/NonHematic-Auto 570 /cumm
[2019-01-26] MEDS: SODIUM CHLORIDE IV SCH (15:53)
[2019-01-26] MEDS: [UNRECOGNIZED DRUG - OTHER] IV SCH (15:53)
[2019-01-26] MEDS: FAT EMULSION IV SCH (15:53)
[2019-01-26] MEDS: SODIUM ACETATE IV SCH (15:53)
[2019-01-26 16:03] LABS: BF RBC Count - Manual 7215 /cumm
[2019-01-26 16:05] LABS: BF Segmented Neutrophils 30 %; Cell Count Non Hematic 7 %; Lymphocytes 63 %
--- NOTE | 2019-01-26 16:10 | CT ---
CT THORAX WITH CONTRAST CT ABDOMEN WITH CONTRAST CT PELVIS WITH CONTRAST: DATE: 01/26/2019 HISTORY: 63-year-old female follow-up right pleural effusion and right abdominal fluid collection. COMPARISON: CT abdomen and pelvis of 01/17/2019. CT pulmonary angiogram of 01/17/2019. TECHNIQUE: IV iodinated contrast media: Administered Oral contrast media: Administered Single phase scans of thorax, abdomen, and pelvis. FINDINGS: Right pleural effusion occupies approximately 20-35% volume of the right hemithoracic cavity. Some of it is displaced more to the apex because there is a greater degree of consolidation involving the entire right lower lobe now, and much of the right middle lobe, with air bronchogram. The volume of a erated right upper lobe is smaller, and there is distribution of patchy airspace densities now in the anterior segment of right upper lobe, probably subsegmental atelectasis. There continues to be subacute or chronic subsegmental atelectasis in the medial aspect of left lower lobe, following the left hilum and descending thoracic aorta. No left-sided pleural effusion. No pneumothorax. No thoracic aortic aneurysm or dissection. Cardiomegaly with four-chamber dilation. No mediastinal lymphadenopathy. Left-sided central line with distal tip at SVC. The right subdiaphragmatic fluid collection surrounding the right lobe of the liver (perhaps subcapsu lar fluid collection), has become somewhat smaller in volume. The underlying liver appears normal. The other loculated intraperitoneal fluid collection inferior to the left and right lobes of the live r containing air-fluid level and a curvilinear foreign body which could represent a suture line, has probably slightly decreased in volume. The previously demonstrated drainage catheter within it, h as now. It currently measures approximately 9 x 4.5 x 5.5 cm. There is no extravasation of oral contrast material. Oral contrast material has reached loops of ileu m. A tiny amount of oral contrast material is present in the ascending colon. It is uncertain whether this is from the previous CT or currently administered oral contrast. No small bowel dilation . No pneumoperitoneum. No hydronephrosis. Tiny left renal lower pole calculus. No abdominal aortic aneurysm. No pathology of pancreas. No adrenal nodule. No splenomegaly. Normal urinary bladder. Small amount of free fluid within the dependent portion of the pelvic cavity, greater than on previous CT. IMPRESSION: 1) moderate size right pleural effusion probably has not significantly changed in volume. 2) however, there is interval worsening of aeration of the right lung, now with total opacification o f right lower lobe, and streaky densities in the right upper lobe. This is presumed to represent severe atelectasis, but pneumonia is a possibility. 3) intraperitoneal gas and fluid collection in the right side of the abdominal cavity has slightly de creased in size. The drainage catheter from it has been removed. 3) the moderate sized fluid collection surrounding the right lobe of the liver, probably subcapsular hepatic fluid collection, has slightly decreased in size.
--- NOTE | 2019-01-26 16:31 | PRG ---
DATE OF SERVICE: 01/26/2019 CT chest, abdomen was done. Chest CT showed the pleural effusion is still persistent. Appears, it may be loculated, at least thick. I had difficulty draining the fluid, even though it came out, but no further fluid was retrievable on the vacuum bottle. The patient post CT was lethargic, appeared to have some difficulty breathing. We are going to put on a noninvasive ventilation BiPAP. I am going to talk with Dr. Qiu to see whether she needs a chest tube on the right side, whether he is going to do it or they need the Cardiovascular Surgery to do that. Regarding the CT of the abdomen, surgery to review it and decide appropriate intervention. We will follow. Job ID: [id number]
[2019-01-26] MEDS ORDERED: Midazolam HCl 5 mg/5 ml Vial ONE (16:48)
[2019-01-26] MEDS ORDERED: Fentanyl 250 MCG/5 ML VIAL ONE (17:18)
[2019-01-26 17:29] LABS: Actual Bicarbonate (HCO3a) 30.1 mEq/L (22-28); Base Excess (BEa) 3.1 mEq/L (-2.0 to +3.0); Calcium, Ionized 1.12 mmol/L (1.12-1.30); Carboxyhemoglobin (COHb) 1.1 gm% (0.0-3.0); Hemoglobin (Hb) 7.5 g/dL (12.0-16.0); Potassium - ABG Lab 2.72 mmol/L (3.70-5.30)
[2019-01-26 17:32] LABS: CO2 Tension 62.5 mmHg (35.0-45.0); O2 Tension (PaO2) 53.5 mmHg (> 80.0); Puncture Site LRA
[2019-01-26 17:33] LABS: ALV-art Gradient 224.875 (0-20)
[2019-01-26] MEDS ORDERED: Norepinephrine 4 MG/4 ML VIAL ONE (18:31)
[2019-01-26] MEDS ORDERED: Rocuronium Bromide 50 MG/5 ML VIAL IVP SCH (18:45)
[2019-01-26] MEDS ORDERED: Midazolam HCl 2 mg/2 ml Vial IVP SCH (18:45)
[2019-01-26] MEDS: MEROPENEM 1 GM/50 ML 1 GM in Premix Bag 1 BAG IVPB SCH ×2 (19:55→20:08)
[2019-01-26] MEDS ORDERED: Ventilator Sedation Protocol 1 EACH FS ONE (20:12)
[2019-01-26] MEDS ORDERED: Norepinephrine 8 MG/0.9% NS 250 ML IVPB PRN (20:12)
[2019-01-26] MEDS ORDERED: Promethazine HCl 25 MG/ML VIAL IM PRN (20:12)
[2019-01-26] MEDS ORDERED: Nitroglycerin 50 MG/250 ML BOT 250 ML IVPB PRN (20:12)
[2019-01-26] MEDS ORDERED: hydrALAZINE 20 MG/ML VIAL SLOW IVP PRN (20:12)
[2019-01-26 20:14] LABS: Actual Bicarbonate (HCO3a) 24.2 mEq/L (22-28); Base Excess (BEa) 0.3 mEq/L (-2.0 to +3.0); CO2 Tension 36.4 mmHg (35.0-45.0); Calcium, Ionized 1.01 mmol/L (1.12-1.30); Carboxyhemoglobin (COHb) 0.4 gm% (0.0-3.0); Hemoglobin (Hb) 10.5 g/dL (12.0-16.0); Potassium - ABG Lab 2.22 mmol/L (3.70-5.30); pH, Arterial 7.44 (7.35-7.45)
[2019-01-26 20:23] LABS: O2 Tension (PaO2) 53.2 mmHg (> 80.0)
[2019-01-26 20:24] LABS: Puncture Site LINE
[2019-01-26] MEDS ORDERED: Propofol 1,000 MG/100 ML VIAL IV PRN (20:48)
[2019-01-26] MEDS ORDERED: Lorazepam 2 MG/ML VIAL SLOW IVP PRN (20:48)
[2019-01-26] MEDS ORDERED: Propofol BOLUS 1,000 MG/100 ML VIAL IV PRN (20:48)
[2019-01-26] MEDS ORDERED: Fentanyl BOLUS 250 ML IVPB PRN (20:48)
[2019-01-26] MEDS ORDERED: DISCONTINUE PREVIOUS NARCOTIC PAIN MEDICATIONS AND BENZODIAZEPINES FS SCH (20:48)
--- NOTE | 2019-01-26 21:30 | CON ---
DATE OF CONSULTATION: 01/26/2019 HISTORY OF PRESENT ILLNESS: I was called by Dr. Wyatt today to evaluate Ms. Qureshi who is a 63-year-old woman who has had a long hospital stay after having a perforated ulcer and antrectomy performed. She has had recent accumulation of a right pleural effusion. Dr. Wyatt did a thoracentesis today with evacuation of approximately 300 mL of clear fluid, but could not completely evacuate the fluid and it appears to be loculated on CT scan. She has had more and more difficulty breathing. On my arrival, she is almost in extremis. The nursing students were rubbing her sternum telling her to remember to breathe. She was, on my arrival, intubated and transferred to the CCU. I have reviewed her CT scans and we will be taking her to the operating room for decortication as soon as the OR is available. PAST MEDICAL HISTORY: Significant for 1. Peptic ulcer disease with bleeding in the past. 2. Diabetes mellitus. 3. Chronic pain. 4. Hypertension. 5. Dyslipidemia. 6. Diabetic neuropathy. 7. Restless legs. 8. DJD. PAST SURGICAL HISTORY: 1. Cholecystectomy. 2. Hysterectomy. 3. Multiple EGDs. 4. Antrectomy with gastro-J reanastomosis. CURRENT MEDICATIONS: Noted. ALLERGIES: CIPRO. PHYSICAL EXAMINATION: GENERAL: This is a diminutive elderly woman, who has just been intubated. VITAL SIGNS: Her heart rate is 110, her blood pressure is 70/40, fluid resuscitation is ongoing. LUNGS: Had diminished breath sounds throughout. HEART: Rhythm is regular. ABDOMEN: Has a healed midline scar. It is soft. EXTREMITIES: No edema. LABORATORY DATA: Of note, white blood cell count is 8.5, hemoglobin is 8.4, platelet count is 504,000. Creatinine 0.67, potassium 3.5. ASSESSMENT AND PLAN: Probable right loculated empyema, for thoracoscopy/thoracotomy and evacuation and decortication. Job ID: [id number]
--- NOTE | 2019-01-26 21:37 | PRG ---
DATE OF SERVICE: 01/26/2019 SUBJECTIVE: Ms. Qureshi is status post repair of perforated ulcer with antrectomy and gastrojejunostomy per Dr. Morgan on 12/25. She developed a duodenal stump leak sometimes following her reexploration on 12/29. She developed a leak at the site and had a drainage procedure performed by Radiology on 01/11. Her drain was removed 2 days ago as there was negligible output. During the night, she developed apparent confusion and lethargy and appeared to be having respiratory problems, and she was transferred to the intermediate care unit. Chest x-ray showed a large right-sided effusion. Dr. Wyatt saw her and performed a thoracentesis removing 300 mL of fluid with difficulty, but the followup chest x-ray shows persistent effusion. CT scan of abdomen and pelvis was obtained revealing a large area of probably loculated effusion along with intraabdominal perihepatic fluid collection and subhepatic fluid collection in the area of the duodenal stump. The collection around the duodenal stump has both fluid and air and it is similar to previously, although it now appears to be a little smaller. Dr. Jose Guadalupe Delong was consulted in regard to her loculated fluid collection and he took her to the operating room this evening, where he performed a thoracotomy with drainage of her pleural space and chest tube placement. She was returned to the intensive care unit, still on the ventilator. She was apparently ventilating quite poorly prior to surgery. At that time, she is seen by myself, she is resting comfortably in bed with sedation and ventilation. OBJECTIVE: VITAL SIGNS: On examination, she has been afebrile all day. Her pulse persists in baseline tachycardia between 105 and 120. Blood pressure is stable at 158/70. LUNGS: Clear to auscultation anteriorly currently. ABDOMEN: Soft and does not appear to be tender. Bowel sounds are present, but hypoactive. Well-healed incision in midline abdomen. EXTREMITIES: Unremarkable. LABORATORY DATA: Her white blood cell count from this morning was 8.5 with a hemoglobin of 8.4. Both of these are stable. She does appear to have a left shift with 88% neutrophils. Her chemistry panel revealed normal electrolytes with normal BUN and creatinine. Her albumin is diminished to 2.9, but this is up from this hospitalization, the highest has been since 12/28. Her pre-albumin is low at 11 however. ASSESSMENT: The patient with a loculated pleural effusion, that has been drained with thoracotomy per Dr. Delong this evening. She still appears to have fluid collection intraabdominal, that is likely the source of her pulmonary problems in a sympathetic fashion. I have ordered a CT-guided drainage of the air and fluid collection in the right abdomen again per Radiology for tomorrow. A Dobhoff tube will be placed and I would plan to initiate tube feeds. Her CT scan did show that the contrast that she drank passed through uneventfully. Hopefully, the drainage procedure and the thoracotomy will allow her inflammatory and infectious issues to resolve. I would anticipate she will be on the ventilator for a while as these issues are sorted out. Job ID: [id number]
[2019-01-26] MEDS: HumaLOG 300 UNITS/3 ML VIAL SC PRN (21:45)
[2019-01-26] MEDS: Enoxaparin Sodium 40 MG/0.4 ML SYRINGE SC SCH (22:30)
--- NOTE | 2019-01-26 22:31 | RAD ---
PORTABLE CHEST: 01/26/19 HISTORY: Chest tube placement. COMPARISON: Prior day's exam. Patient reportedly had undergone a thoracotomy. Two right sided chest tubes are now in place and ther e has been a definite reduction in the right sided effusion. Some subcutaneous emphysema is present. Endotracheal tube is present. The tip is less than 1 cm above the elmira and directed slightly toward s the right main stem bronchus. Right and left central lines are noted. Catheter tips are in the prox imal and distal superior vena cava. IMPRESSION: 1. Post thoracotomy change. Interval reduction of a right sided pleural effusion with two right chest tubes in place. No signs of pneumothorax. 2. Endotracheal tube slightly low in position. 3. Interval placement of a right sided subclavian line. The catheter tip is in the superior vena cava right atrium junction. Left sided PICC type line is unchanged in position. POS: OFF
[2019-01-27] MEDS: MEROPENEM 1 GM/50 ML 1 GM in Premix Bag 1 BAG IVPB SCH ×3 (01:04→17:16)
--- NOTE | 2019-01-27 01:44 | OP ---
DATE OF PROCEDURE: 01/26/2019 PREOPERATIVE DIAGNOSIS: Right empyema. POSTOPERATIVE DIAGNOSIS: Right empyema. PROCEDURES PERFORMED: 1. Left femoral arterial line placement. 2. Right subclavian central line placement. 3. Right thoracoscopy converted to thoracotomy for total pulmonary decortication. DRAINS: Thirtytwo-Kazakh chest tubes x2. DRIPS: Levophed. TRANSFUSIONS: Two units pack red blood cells. DESCRIPTION OF PROCEDURE: The patient was brought to the operating room already intubated. Her endotracheal tube was exchanged for a double-lumen tube. Flexible fiberoptic bronchoscopy was used to confirm placement. An arterial line was placed in the left common femoral artery and secured with silk suture. A right subclavian 7-Kazakh central line was placed and secured to the skin with silk suture. Sterile dressing was applied. The patient was placed in a left lateral decubitus position. Joints were appropriately padded. SCDs were used. Right chest wall was prepped and draped in usual sterile fashion. The lung was attempted to be deflated, but when we dropped the lung, the oxygen saturations immediately plummeted and she became hypotensive. We elected to abandon the thoracoscopy and a posterolateral thoracotomy incision was made. The ribs were spread minimally. Approximately 500 mL of clear thin fluid was evacuated. There was some gelatinous material which was evacuated. Once the chest was completely evacuated, the lung was deflated momentarily allowing for further inspection with the scope and this showed no further debris within the chest. Lung was re-expanded. The 32-Kazakh chest tubes x2 were placed. Ribs were reapproximated with #1 Vicryl. Wounds were irrigated and closed in layers. The patient was then transported back to the intensive care unit in critical condition. Needle, sponge, and instrument counts were all reported as correct at the end of the procedure. Job ID: [id number]
[2019-01-27] MEDS: Ondansetron PF 4 MG/2 ML Vial IVP PRN (03:36)
[2019-01-27 04:24] LABS: #Lymphocytes 0.8 thou/uL (1.20-3.40); #Monocytes 0.3 thou/uL (0.11-0.59); #Neutrophils 11.4 thou/uL (1.40-6.50); %Lymphocytes 6.1 % (21.0-51.0); %Monocytes 2.1 % (0.0-10.0); %Neutrophils 91.7 % (42.0-75.0); Hemoglobin 10.2 g/dL (12.0-16.0); Mean Corpuscular HGB CONC 35.4 g/dL (32.0-36.0); Mean Corpuscular Hemoglobin 31.4 pg (27.0-31.0); Mean Corpuscular Volume 88.7 fL (78.0-98.0); Mean Platelet Volume 7.7 fL (7.4-10.4); Platelet Count 387 thou/uL (130-400); RBC Distribution Width 15.2 % (11.5-14.5); Red Blood Cell (RBC) Count 3.23 mill/uL (4.20-5.40); White Blood Cell (WBC) Count 12.4 thou/uL (4.8-10.8)
[2019-01-27 04:26] LABS: INR-International Normal Ratio 1.2; Prothrombin Time 14.9 SEC (12.0-14.7)
[2019-01-27 04:49] LABS: ALT (SGPT) 68 U/L (8-55); AST (SGOT) 40 U/L (5-34); Albumin 2.3 g/dL (3.4-4.8); Alkaline Phosphatase 131 U/L (40-150); Anion Gap 12 mmol/L (10-20); BUN (Urea Nitrogen) 22 mg/dL (9.8-20.1); Bilirubin, Total 0.5 mg/dL (0.2-1.2); Calc. Creatinine Clearance 82 mL/min (70-130); Carbon Dioxide 26 mmol/L (23-31); Chloride 99 mmol/L (98-107); Estimated GFR-MDRD 90; Globulin 3.6 g/dL (2.4-3.5); Glucose 246 mg/dL (80-115); Potassium 2.7 mmol/L (3.5-5.1); Protein, Total 5.9 g/dL (6.0-8.3); Sodium 134 mmol/L (136-145)
[2019-01-27] MEDS: Morphine 2 MG/ML SYRINGE SLOW IVP PRN ×5 (05:30→17:09)
[2019-01-27] MEDS: HumaLOG 300 UNITS/3 ML VIAL SC PRN (05:54)
[2019-01-27] MEDS ORDERED: Potassium Chloride 20 MEQ in Premix Bag 1 BAG IVPB SCH (06:30)
--- NOTE | 2019-01-27 07:55 | RAD ---
SINGLE VIEW OF THE CHEST: COMPARISON: 01/26/2019. HISTORY: Status post thoracotomy. FINDINGS: A single view of the chest shows an enlarged but stable cardiomediastinal silhouette. The lines and tubes are unchanged in position. There is increasing opacity in the right thorax which may represent an evolving right pleural effusion. No pneumothorax is seen. IMPRESSION: Increasing opacity in the right thorax may represent a developing right pleural effusion. POS: JAMES
[2019-01-27] MEDS: Budesonide 0.5 MG/2 ML NEB INH SCH ×2 (07:57→19:48)
[2019-01-27] MEDS: Arformoterol 15 MCG/2 ML NEB NEB SCH ×2 (07:57→19:47)
--- NOTE | 2019-01-27 08:31 | PRG ---
DATE OF SERVICE: 01/27/2019 SUBJECTIVE: This morning, she was intubated on the vent, sedated. X-ray shows still rather extensive right-sided infiltrate. OBJECTIVE: VITAL SIGNS: Her saturations are 100%, blood pressure 140/80, pulse 80, respiratory rate 18, and temperature 101.5. CHEST: Extensive rhonchi, right greater than left. CARDIAC: Normal S1 and S2. No gallops. ABDOMEN: No masses. LABORATORY DATA: A pO2 of 53, pCO2 of 36, pH 7.42 on 70%, PEEP of 5, and 400 tidal volume. Creatinine is 2.7. Albumin is low. IMPRESSION: 1. Status post right lung thoracoscopy with associated total decortication. 2. Hypertension. 3. Respiratory failure. 4. Status post laparoscopy. PLAN: At this stage, she is not weanable. Vent is being adjusted. Continue broad-spectrum antibiotics. Nutrition and PT as per General Surgery. Await cultures on the bronch washings. TIME SPENT: One-half hour of Critical Care time exclusive of the bronchoscopy and lavage. Job ID: [id number]
--- NOTE | 2019-01-27 08:37 | OP ---
DATE OF PROCEDURE: 01/27/2019 PROCEDURE PERFORMED: Bronchoscopy with lavage. INDICATION: Extensive right-sided pneumonia, mucus plugging, respiratory failure. POSTBRONCHOSCOPY DIAGNOSIS: Extensive right-sided pneumonia, mucus plugging, respiratory failure. DESCRIPTION OF PROCEDURE: With informed consent from the family, flexible bronchoscope was passed using adapting the endotracheal tube. Distal elmira was normal. The endotracheal tube was sitting at the level of the elmira and was pulled back. There was some pus or blood seen at the distal trachea, which was suctioned and lavaged until clear. The right lung was inspected initially. There was some relatively thick mucus in the mainstem bronchus, which was suctioned and lavaged until clear. Thereafter, the right upper, right middle, and lower lobe were visualized without any further endobronchial disease. The left lung was inspected, thereafter this was unremarkable. The patient tolerated the procedure well. The bronchoscope was removed. The patient was both lungs inspected. They were completely clear. The endotracheal tube was in adequate position and sitting way above the elmira. Job ID: [id number]
[2019-01-27] MEDS: K-Phos Neutral 250 MG TAB PO SCH ×3 (09:26→17:16)
[2019-01-27] MEDS: Ferrous Sulfate 325 MG TAB PO SCH ×2 (09:27→17:10)
[2019-01-27] MEDS: Insulin Glargine 25 UNITS in Pre-Filled Syringe 1 EACH SC SCH (09:27)
[2019-01-27] MEDS: Gabapentin 300 MG CAP PO SCH ×3 (09:27→21:05)
[2019-01-27] MEDS: cloNIDine 0.2 MG TAB PO SCH ×2 (12:41→21:05)
[2019-01-27] MEDS: Amlodipine 10 MG TAB PO SCH (12:41)
[2019-01-27] MEDS ORDERED: Sodium Bicarbonate 2.5 MEQ/5 ML VIAL ONE (13:02)
--- NOTE | 2019-01-27 14:33 | CT ---
CT-guided abdominal abscess drainage HISTORY: Abdominal abscess HISTORY: After explaining the procedure and obtaining informed consent, limited CT imaging of the abd omen was performed. Sterile technique, buffered local anesthesia, CT guidance, and a right upper quadrant anterior approach were used to carefully advance a 19-gauge needle into the gas and fluid po cket in the right upper quadrant. Guidewire was placed and the tract was dilated to 8 Italian. An 8 Italian locking loop catheter was car efully placed into the abscess cavity. A total volume of 5 cc purulent liquid was aspirated. A portion was sent to laboratory for analysis. The catheter was secured externally with 0 silk suture a nd left draining to gravity. Patient tolerated the procedure well and was returned in unchanged condition. IMPRESSION: Technically successful CT-guided right upper quadrant abscess drainage.
[2019-01-27] MEDS: FAT EMULSION IV SCH (14:46)
[2019-01-27] MEDS: SODIUM CHLORIDE IV SCH (14:46)
[2019-01-27] MEDS: [UNRECOGNIZED DRUG - OTHER] IV SCH (14:46)
[2019-01-27] MEDS: SODIUM ACETATE IV SCH (14:46)
[2019-01-27] MEDS: Labetalol HCl 100 MG/20 ML VIAL SLOW IVP PRN (14:46)
[2019-01-27 15:40] LABS: BF Color Yellow; Body Fluid Source Abscess Fluid; Clarity Cloudy/Turbid (Clear); RBC Background Count 0.002; RBC Count-Automated 25000 /cumm; Tube # EDTA; WBC/NonHematic-Auto 877 /cumm
[2019-01-27 16:42] LABS: BF Segmented Neutrophils 23 %; Cell Count Non Hematic 29 %; Lymphocytes 48 %
--- NOTE | 2019-01-27 18:11 | PDOC.PN ---
- Subjective Encounter Start Date: 01/27/19 Encounter Start Time: 09:15 was seen today in follow-up of respiratory failure. The vents of last night were noted. she has had thorcentesis, followed by decortication and chest tube placement for empyema. She is currently on the ventilator, and is awake and alert. - Objective Resuscitation Status - Order Detail: 12/24/18 21:39 Resuscitation Status Routine Resuscitation Status: FULL: Full Resuscitation MAR Reviewed: Yes Vital Signs & Weight: Vital Signs (12 hours) Temp Pulse Pulse Pulse Resp BP BP 01/27/19 16:00 18 01/27/19 15:00 99.9 F H 01/27/19 14:46 92 182/71 H 01/27/19 14:00 18 01/27/19 12:41 92 01/27/19 12:00 18 01/27/19 11:27 92 138/67 01/27/19 11:00 100.3 F H 01/27/19 10:00 18 01/27/19 09:33 90 81 132/63 01/27/19 08:19 94 150/90 H 01/27/19 08:00 18 BP Pulse Ox Pulse Ox Pulse Ox 01/27/19 16:00 01/27/19 15:00 01/27/19 14:46 01/27/19 14:00 01/27/19 12:41 01/27/19 12:00 01/27/19 11:27 01/27/19 11:00 01/27/19 10:00 01/27/19 09:33 128/59 L 100 100 01/27/19 08:19 01/27/19 08:00 99 Weight Admit Weight 125 lb 3.2 oz Weight 130 lb 1.164 oz Most Recent Monitor Data Heart Rate from ECG 81 NIBP 146/69 NIBP BP-Mean 104 Respiration from ECG 18 SpO2 100 I&O: 01/26/19 01/27/19 01/28/19 06:59 06:59 06:59 Intake Total 1180 555.7 1142 Output Total 950 840 790 Balance 230 -284.3 352 Result Diagrams: 01/27/19 04:04 01/27/19 04:04 Additional Labs: Accuchecks 01/27/19 01/27/19 01/26/19 11:06 05:55 21:12 POC Glucose 127 H 217 H 237 H Phys Exam - Physical Examination HEENT: PERRLA decreased breath sounds at the bases Cardiovascular: RRR, no significant murmur, no rub Gastrointestinal: soft, non-tender, no distention, positive bowel sounds Musculoskeletal: pulses present, edema present + edema in both upper and ;ower extremities, and bruising in the extremitie Neurological: non-focal, moves all 4 limbs Dx/Plan (1) Empyema of right pleural space Code(s): J86.9 - PYOTHORAX WITHOUT FISTULA Status: Acute (2) Respiratory failure Code(s): J96.90 - RESPIRATORY FAILURE, UNSP, UNSP W HYPOXIA OR HYPERCAPNIA Status: Acute (3) Duodenal ulcer, perforated Code(s): K26.5 - CHRONIC OR UNSPECIFIED DUODENAL ULCER WITH PERFORATION Status : Acute Comment: s/p antrectomy, with duodenal stump leak postop, Dr. 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 Her antibiotics have been changed to Meropenem * Continue ventilator support * She continues to have an inflammatory process in the Abdomen- continue Meropenem for this, and continue as per Surgery recommendations * HTN- blood pressure is currently stable * DM- blood glucose is stable * Duodenal ulcer with hemorrhage- this was the initial presentation- would consider checking H. Pylori- stool Ab prior to discharge to see if she will need treatment for this * Hypokalemia- replace
[2019-01-27] MEDS: fentaNYL Citrate/PF 2,000 MCG in Sodium Chloride 0.9% 60 ML IV SCH (19:44)
[2019-01-27] MEDS: Enoxaparin Sodium 40 MG/0.4 ML SYRINGE SC SCH (21:05)
[2019-01-28] MEDS: MEROPENEM 1 GM/50 ML 1 GM in Premix Bag 1 BAG IVPB SCH ×3 (01:02→17:50)
[2019-01-28 04:17] LABS: #Lymphocytes 1.5 thou/uL (1.20-3.40); #Monocytes 0.5 thou/uL (0.11-0.59); #Neutrophils 7.6 thou/uL (1.40-6.50); %Basophils 0.1 % (0.0-1.0); %Eosinophils 0.2 % (0.0-10.0); %Lymphocytes 15.2 % (21.0-51.0); %Monocytes 4.8 % (0.0-10.0); %Neutrophils 79.6 % (42.0-75.0); Hemoglobin 9.9 g/dL (12.0-16.0); Mean Corpuscular HGB CONC 34.2 g/dL (32.0-36.0); Mean Corpuscular Hemoglobin 30.4 pg (27.0-31.0); Mean Corpuscular Volume 88.7 fL (78.0-98.0); Mean Platelet Volume 7.9 fL (7.4-10.4); Platelet Count 394 thou/uL (130-400); RBC Distribution Width 15.1 % (11.5-14.5); Red Blood Cell (RBC) Count 3.25 mill/uL (4.20-5.40); White Blood Cell (WBC) Count 9.5 thou/uL (4.8-10.8)
[2019-01-28] MEDS: HumaLOG 300 UNITS/3 ML VIAL SC PRN ×2 (06:12→11:54)
[2019-01-28] MEDS: Morphine 2 MG/ML SYRINGE SLOW IVP PRN ×4 (06:37→15:52)
--- NOTE | 2019-01-28 07:00 | PRG ---
DATE OF SERVICE: 01/27/2019 SUBJECTIVE: Ms. Qureshi is on postoperative day #[address] Delong. She is resting comfortably on the ventilator in the intensive care unit. She is one month out from repair of perforated ulcer with antrectomy and gastrojejunostomy on 12/25. CT scan of abdomen from yesterday revealed a recurrent air and fluid collection in the area of the duodenal stump. She also has a large amount of perihepatic fluid. The contrast from her ingested contrast passed through the small bowel and into the colon. OBJECTIVE: VITAL SIGNS: On examination today, she is afebrile. Her pulse is down from the low 100s into the mid 90s. Blood pressure is within normal limits and stable. Her urine output over night was 740 mL. LUNGS: Clear to auscultation anteriorly bilaterally on the ventilator. ABDOMEN: Soft with well-healed midline incision. Bowel sounds are present, but hypoactive. EXTREMITIES: Unremarkable. LABORATORY DATA: Her white blood cell count is elevated to 12.4 (from 8.5 yesterday), hemoglobin is elevated at 10.2 from 8.4 yesterday. Chemistries reveal hypokalemia with a potassium of 2.7. Other electrolytes are within normal limits. BUN and creatinine are normal. Liver function tests show slight elevation of AST and ALT, although bilirubin level is normal. Albumin is little low at 2.3. ASSESSMENT: The patient has stabilized significantly since her thoracotomy yesterday and being placed on the ventilator. She is alert and appears to be comfortable. She is much less tachycardic. She appears to be ventilating well. There was concern that the cause of her thoracic problems is ongoing intraabdominal problems. I will ask radiology to place a CT-guided drain into the air and fluid collections in the right abdomen in the area of the duodenal stump. This will be performed later today. Continue antibiotics and ventilation and TPN for now. Job ID: [id number]
[2019-01-28] MEDS: Arformoterol 15 MCG/2 ML NEB NEB SCH ×2 (08:06→19:16)
[2019-01-28] MEDS: Budesonide 0.5 MG/2 ML NEB INH SCH ×2 (08:07→19:16)
[2019-01-28 08:21] LABS: Actual Bicarbonate (HCO3a) 26.4 mEq/L (22-28); Base Excess (BEa) 3.8 mEq/L (-2.0 to +3.0); CO2 Tension 32.4 mmHg (35.0-45.0); Carboxyhemoglobin (COHb) 0.3 gm% (0.0-3.0); Hemoglobin (Hb) 10.3 g/dL (12.0-16.0); Potassium - ABG Lab 3.79 mmol/L (3.70-5.30); pH, Arterial 7.53 (7.35-7.45)
[2019-01-28 08:24] LABS: Puncture Site LINE
[2019-01-28] MEDS: K-Phos Neutral 250 MG TAB PO SCH ×3 (09:18→16:31)
--- NOTE | 2019-01-28 09:18 | RAD ---
PORTABLE CHEST: 01/28/2019 PROVIDED CLINICAL HISTORY: Status post thoracotomy. COMPARISON: 02/04/2019 FINDINGS: Significant interval change with respect to the prior examination is not apparent. IMPRESSION: As above. POS: OFF
[2019-01-28] MEDS: Gabapentin 300 MG CAP PO SCH ×3 (09:19→20:55)
[2019-01-28] MEDS: cloNIDine 0.2 MG TAB PO SCH ×2 (09:19→20:55)
[2019-01-28] MEDS: Ferrous Sulfate 325 MG TAB PO SCH ×2 (09:20→16:31)
[2019-01-28] MEDS: Amlodipine 10 MG TAB PO SCH (09:20)
[2019-01-28] MEDS: Insulin Glargine 25 UNITS in Pre-Filled Syringe 1 EACH SC SCH (09:21)
[2019-01-28] MEDS: Pantoprazole 40 MG VIAL IVP SCH (09:36)
[2019-01-28] MEDS ORDERED: Furosemide 20 MG/2 ML VIAL SLOW IVP SCH (10:00)
[2019-01-28] MEDS ORDERED: Calcium Gluc 4.6 MEQ/10 ML (100 MG/ML) SLOW IVP SCH (10:30)
--- NOTE | 2019-01-28 10:50 | PRG ---
DATE OF SERVICE: 01/28/2019 SERVICE: Pulmonary Medicine. INTERVAL HISTORY: The patient is doing fine from respiratory standpoint. Oxygen requirements have improved. We seem to be hyperventilating or ever so slightly at this point. There has been no interval change to her condition. She continues to have chest discomfort. She denies having any abdominal discomfort. She had a large bowel movement yesterday. There were no overnight events. PHYSICAL EXAMINATION: VITAL SIGNS: Afebrile; currently, with a T-max overnight of 101.1. Pulse 84, blood pressure 146/61, respirations 18, and saturation 100% on 31% FiO2 and a PEEP of 5. GENERAL: The patient is awake and alert, on mechanical ventilation. She is on some sedating medication. HEENT: Normocephalic and atraumatic. Sclerae are white. Conjunctivae are pink. Oral mucosa is moist without lesions. LUNGS: Decent air entry. Crackles and rhonchi are present. No prolonged expiratory phase or wheezing is appreciated. HEART: Normal rate and regular. ABDOMEN: Soft, nontender, and nondistended. Bowel sounds are positive. MUSCULOSKELETAL: No cyanosis or clubbing. EXTREMITIES: There is no pitting in the bilateral lower extremities. NEUROLOGIC: Grossly nonfocal. LABORATORY DATA: WBC 9.5, hemoglobin 9.9 and roughly stable, and platelets of 394,000. INR 1.2. A pH 7.53, pCO2 of 32, and pO2 of 103. Blood sugar ranges from 108 to 217. Urinalysis was previously unremarkable. CELSO screen was negative. Abdominal abscess is growing a gram-negative sloane, this is yet to be further identified. We have a remote MRSA growing in the bronchial washing from the 02 of January. All other culture results remain essentially unremarkable. ASSESSMENT: 1. Severe sepsis. 2. Abdominal abscess, status post drain placement. 3. Empyema, status post decortication, postoperative day 2. 4. Healthcare-associated pneumonia, status post full course of therapy. 5. Urinary tract infection, status post full course of therapy. 6. Acute hypoxic respiratory failure. DISCUSSION AND PLAN: We will continue supportive measures including antibiotics and nebulized medications. I have made multiple adjustments to the ventilator to return more work of breathing over to the patient. Pulmonary/Critical Care will continue to follow along while the patient remains inhouse. We will work on mobilizing some fluid from the patient now that she has hemodynamically stabilized. CRITICAL CARE TIME: 30 minutes. Job ID: [id number] MTDD
--- NOTE | 2019-01-28 13:59 | PRG ---
DATE OF SERVICE: 01/28/2019 SUBJECTIVE: Ms. Qureshi is doing well. She has had a right chest decortication. Has a right chest tube in place. Dr. Simmons seen her today in ICU and wants her to remain on ventilator and letting decrease her ventilatory rate, FiO2, and hopefully, we can extubate her in the next 1 to 2 days. Her potassium was low yesterday, but on her blood gas, potassium is 3.79. We will recheck a basic met tomorrow. White count 9 and hemoglobin 9.9. OBJECTIVE: VITAL SIGNS: Blood pressure 127/58 and heart rate 93. HEAD, EARS, EYES, NOSE, AND THROAT: Unremarkable. LUNGS: Clear to auscultation. CARDIAC: Regular rate and rhythm without murmur or gallop. ABDOMEN: Soft. Percutaneously placed drain at duodenal stump has bilious output, 120 mL last 24 hours. URINARY: Urine output is good at 1545. Gram-negative sloane noted in the percutaneous drain fluid. ASSESSMENT AND PLAN: 1. Decortication, right chest. Continue chest tube. 2. Duodenal fistula. Continue percutaneous drain. Has 120 in last 24 hours. Observe this volume and output. Hopefully, this will resolve as she has had two other past operations and would be reluctant to reoperate on this. 3. Low potassium yesterday, normalized with replacement, and recheck this morning on her blood gas. Check basic metabolic tomorrow. 4. Last magnesium on 01/26/2019 was 1.3, replaced, not rechecked. We will recheck that tomorrow. 5. Bilirubin has been normal with normalizing transaminases. 6. Respiratory failure, wean in the next day or two per Dr. Simmons. Job ID: [id number]
[2019-01-28] MEDS: [UNRECOGNIZED DRUG - OTHER] IV SCH (14:35)
[2019-01-28] MEDS: FAT EMULSION IV SCH (14:35)
[2019-01-28] MEDS: SODIUM ACETATE IV SCH (14:35)
[2019-01-28] MEDS: SODIUM CHLORIDE IV SCH (14:35)
[2019-01-28] MEDS: fentaNYL Citrate/PF 2,000 MCG in Sodium Chloride 0.9% 60 ML IV SCH (17:57)
[2019-01-28] MEDS ORDERED: Acetaminophen 1,000 MG in Premix Bag 1 BAG IVPB PRN (18:00)
[2019-01-28] MEDS: Enoxaparin Sodium 40 MG/0.4 ML SYRINGE SC SCH (20:54)
[2019-01-29] MEDS: MEROPENEM 1 GM/50 ML 1 GM in Premix Bag 1 BAG IVPB SCH ×3 (02:05→19:28)
[2019-01-29 04:17] LABS: Phosphorus 3.8 mg/dL (2.3-4.7)
[2019-01-29 04:18] LABS: Anion Gap 12 mmol/L (10-20); BUN (Urea Nitrogen) 23 mg/dL (9.8-20.1); Calc. Creatinine Clearance 93 mL/min (70-130); Calcium 8.5 mg/dL (7.8-10.44); Carbon Dioxide 31 mmol/L (23-31); Chloride 104 mmol/L (98-107); Estimated GFR-MDRD Greater than 90; Glucose 153 mg/dL (80-115); Magnesium 1.5 mg/dL (1.6-2.6); Sodium 143 mmol/L (136-145)
[2019-01-29] MEDS: HumaLOG 300 UNITS/3 ML VIAL SC PRN ×4 (06:03→20:49)
[2019-01-29] MEDS: Budesonide 0.5 MG/2 ML NEB INH SCH ×2 (06:40→18:55)
[2019-01-29] MEDS: Arformoterol 15 MCG/2 ML NEB NEB SCH ×2 (06:40→18:55)
[2019-01-29] MEDS: fentaNYL Citrate/PF 2,000 MCG in Sodium Chloride 0.9% 60 ML IV SCH (07:26)
--- NOTE | 2019-01-29 07:33 | RAD ---
EXAM: Portable chest PROVIDED CLINICAL HISTORY: Respiratory insufficiency COMPARISON: 01/28/2019 FINDINGS: Significant interval change with respect to the prior examination is not apparent. IMPRESSION: As above.
[2019-01-29] MEDS: Labetalol HCl 100 MG/20 ML VIAL SLOW IVP PRN (08:44)
[2019-01-29] MEDS ORDERED: Magnesium Sulfate 4 GM in Sodium Chloride 0.9% 250 ML 250 ML IVPB SCH (08:45)
[2019-01-29] MEDS: Amlodipine 10 MG TAB PO SCH (08:54)
[2019-01-29] MEDS: Gabapentin 300 MG CAP PO SCH ×3 (08:54→20:50)
[2019-01-29] MEDS: Pantoprazole 40 MG VIAL IVP SCH (08:54)
[2019-01-29] MEDS: Sodium Chloride 0.9% (PF) 10 ML VIAL FS PRN (08:54)
[2019-01-29] MEDS: Ferrous Sulfate 325 MG TAB PO SCH ×2 (08:54→17:32)
--- NOTE | 2019-01-29 08:54 | PRG ---
DATE OF SERVICE: 01/29/2019 SERVICE: Pulmonary Medicine. INTERVAL HISTORY: The patient is doing really well from respiratory standpoint. Breathing comfortably. Denies any current chest discomfort or abdominal discomfort. Her biggest complaint is shoulder discomfort. She takes tramadol at home for this. There has been no interval change to her condition, otherwise. PHYSICAL EXAMINATION: VITAL SIGNS: T-max 101, current temperature 100.6, pulse 98, blood pressure 141/60, respirations 14, and saturation 97% on 27% FiO2 and a PEEP of 5. GENERAL: The patient is awake and alert, in no apparent distress. LUNGS: Decent air entry. There is no prolonged expiratory phase. Wheezing is present. HEART: Normal rate, regular. ABDOMEN: Soft, nontender, and nondistended. Bowel sounds are hypoactive. GENITOURINARY: Barnard catheter in place. NEUROLOGIC: Grossly nonfocal. LABORATORY DATA: Creatinine 0.58. Basic metabolic profile is otherwise unremarkable. Magnesium 1.5, phosphorus 3.8. Abdominal fluid is growing Klebsiella pneumoniae. This is a pansensitive organism. IMAGING DATA: Chest x-ray demonstrates scattered infiltrates throughout the right lung. She has an endotracheal tube in good position roughly 2 to 3 cm above the level of the elm[place]. The carinal angle is quite generous. Subclavian central venous catheter terminates in good position. Right-sided thoracostomy tube is in place with good aeration of the right lung. Some cephalization is present. ASSESSMENT: 1. Severe sepsis, improving. 2. Abdominal abscess secondary to Klebsiella pneumoniae, pansensitive, status post drain placement. 3. Empyema, status post decortication, postop day 3. 4. Healthcare-associated pneumonia, status post full course of antibiotic therapy. 5. Urinary tract infection, status post full course of antibiotic therapy. 6. Acute hypoxic respiratory failure, improving. DISCUSSION AND PLAN: We will continue to diurese the patient down to euvolemia. Pulmonary/Critical Care will continue to follow along. Magnesium will be replaced today and we will continue diuresed euvolemia. I am going to interrupt all sedating medication that is continuous and only provide her with p.r.n. medication. Hopefully, we will be able to give her spontaneous breathing trial. Despite the fact that she is wide awake on the ventilator, whenever I drop her volumes, she takes very small breaths and becomes quite tachypneic. She denies having any discomfort when this occurs. CRITICAL CARE TIME: 30 minutes. Job ID: [id number]
[2019-01-29] MEDS ORDERED: Furosemide 20 MG/2 ML VIAL SLOW IVP SCH (09:00)
[2019-01-29] MEDS: Ondansetron PF 4 MG/2 ML Vial IVP PRN (09:38)
[2019-01-29] MEDS: traMADol HCl 50 MG TAB PO PRN (10:10)
[2019-01-29] MEDS: K-Phos Neutral 250 MG TAB PO SCH ×3 (10:15→17:33)
[2019-01-29] MEDS: Insulin Glargine 25 UNITS in Pre-Filled Syringe 1 EACH SC SCH (10:22)
[2019-01-29] MEDS ORDERED: Sodium Bicarbonate Tab 325 MG TAB PER TUBE PRN (10:36)
[2019-01-29] MEDS ORDERED: Pancrelipase DR 12000 1 CAP FS PRN (10:36)
[2019-01-29] MEDS: FAT EMULSION IV SCH (13:40)
[2019-01-29] MEDS: SODIUM CHLORIDE IV SCH (13:40)
[2019-01-29] MEDS: [UNRECOGNIZED DRUG - OTHER] IV SCH (13:40)
[2019-01-29] MEDS: SODIUM ACETATE IV SCH (13:40)
--- NOTE | 2019-01-29 17:35 | PRG ---
DATE OF SERVICE: 01/29/2019 SUBJECTIVE: Ms. Qureshi is in ICU. She is on the ventilator. Dr. Simmons is trying to wean her slow. Hopefully, she will be extubated in the next day or two. She is awake, cooperative. She indicates that she did not have any abdominal pain when asked. She has had fevers to 101 degrees at 8 o'clock this morning, respiratory rate 18, blood pressure 152/58. TPN is infusing. She is at her target rate with her enteral tube feedings. She is being diuresed. Chest tube drainage is 40 mL for 24 hours. Percutaneous abdominal drainage record to be 0, although there is bilious drainage present, approximately 60 mL currently. Apparently, this was not recorded for the last 24 hours. Urine output 2920 in the past 24 hours. White count 9 yesterday, hemoglobin 9.9 yesterday. Basic metabolic profile normal today. OBJECTIVE: LUNGS: Clear to auscultation. CARDIAC: Regular rate and rhythm without murmur or gallop. ABDOMEN: Soft and nontender. ASSESSMENT AND PLAN: The patient has a PICC line. We will remove the central line since she is febrile. Continue ventilatory weaning. We will discontinue TPN as she is tolerating her tube feedings. Job ID: [id number]
--- NOTE | 2019-01-29 18:51 | PDOC.PN ---
- Subjective Encounter Start Date: 01/29/19 Encounter Start Time: 18:35 Subjective: f/u for severe sepsis, empyema, abd abscess with Klebsiella and -: resp failure on mech vent. Tolerating current vent settings but unable -: to wean. Receiving Meropenem. - Objective Resuscitation Status - Order Detail: 12/24/18 21:39 Resuscitation Status Routine Resuscitation Status: FULL: Full Resuscitation MAR Reviewed: Yes Vital Signs & Weight: Vital Signs (12 hours) Temp Pulse Resp BP Pulse Ox 01/29/19 18:00 22 H 01/29/19 16:00 19 01/29/19 15:25 82 152/58 H 01/29/19 13:20 77 133/60 01/29/19 12:00 20 96 01/29/19 10:54 82 152/73 H 01/29/19 10:00 22 H 01/29/19 08:54 103 H 198/73 H 01/29/19 08:44 103 H 198/73 H 01/29/19 08:00 101.1 F H 21 H 95 Weight Admit Weight 125 lb 3.2 oz Weight 139 lb 1.787 oz Most Recent Monitor Data Heart Rate from ECG 87 NIBP 169/73 NIBP BP-Mean 86 Respiration from ECG 27 SpO2 94 I&O: 01/28/19 01/29/19 01/30/19 06:59 06:59 06:59 Intake Total 2224.7 2632.5 1182.1 Output Total 1715 2960 2115 Balance 509.7 -327.5 -932.9 Result Diagrams: 01/28/19 04:05 01/29/19 03:30 Additional Labs: Accuchecks 01/29/19 01/29/19 01/28/19 09:21 05:54 20:51 POC Glucose 168 H 165 H 106 Microbiology 01/27/19 13:30 Abdomen - Abscess Bacterial Culture - Preliminary Staphylococcus aureus Klebsiella pneumoniae ssp pneu Laboratory Tests 01/18/19 01/19/19 01/20/19 05:08 05:30 07:39 WBC Hgb 6.2 L 8.3 L 9.0 L Sodium Potassium Phosphorus Magnesium 01/21/19 01/23/19 01/27/19 03:50 04:24 04:04 WBC 12.4 H Hgb 8.1 L 10.2 L Sodium 146 H Potassium 3.1 L Phosphorus Magnesium 01/29/19 01/29/19 03:30 03:40 WBC Hgb Sodium Potassium Phosphorus 3.8 Magnesium 1.5 L Radiology Reviewed by me: Yes (PCXR - R -sided infiltrate, lines/tubes in position) EKG Reviewed by me: Yes (Tele - SR) Phys Exam - Physical Examination opens eyes to name, nods to questions ETT/NGT in place HEENT: PERRLA, sclera anicteric, oral pharynx no lesions Neck: no nodes, no JVD, supple, full ROM diminished in bases S1, S2 Cardiovascular: RRR, no significant murmur, no rub, gallop Gastrointestinal: soft, no distention, positive bowel sounds Musculoskeletal: no edema, pulses present Neurological: moves all 4 limbs Skin: normal turgor, cap refill <2 seconds Dx/Plan (1) Severe sepsis Code(s): A41.9 - SEPSIS, UNSPECIFIED ORGANISM; R65.20 - SEVERE SEPSIS WITHOUT SEPTIC SHOCK Status: Acute Comment: Secondary to abd abscess and empyema, continue Meropenem and chest tube drainage (2) Empyema lung Code(s): J86.9 - PYOTHORAX WITHOUT FISTULA Status: Acute Comment: s/p thoracotomy with decortication and chest tube, monitor for clinical improvement (3) Acute respiratory failure with hypoxia Code(s): J96.01 - ACUTE RESPIRATORY FAILURE WITH HYPOXIA Status: Acute Comment: Remains on mech vent, slow wean as clinically tolerated, serial PCXR (4) Duodenal ulcer, perforated Code(s): K26.5 - CHRONIC OR UNSPECIFIED DUODENAL ULCER WITH PERFORATION Status : Acute Comment: s/p antrectomy, with duodenal stump leak postop, Dr. Morgan following, CT with persistent leak 01/10/19, CT guided percutaneous drain placement 01/11/19, TPN/TF's concurrently (5) Anemia due to acute blood loss Code(s): D62 - ACUTE POSTHEMORRHAGIC ANEMIA Status: Acute Comment: s/p total 7 unit PRBC, H/H stable currently (6) Hypokalemia Code(s): E87.6 - HYPOKALEMIA Status: Acute Comment: KCL replacement, serial K+ monitoring (7) Chronic pain disorder Code(s): G89.4 - CHRONIC PAIN SYNDROME Status: Chronic (8) Diabetes type 2, controlled Code(s): E11.9 - TYPE 2 DIABETES MELLITUS WITHOUT COMPLICATIONS Status: Chronic Qualifiers: Diabetes mellitus long lines operator insulin use: with mcc use Comment: ISS, Lantus, ADA when tolerating po intake (9) HTN (hypertension) Code(s): I10 - ESSENTIAL (PRIMARY) HYPERTENSION Status: Chronic Qualifiers: Hypertension type: essential hypertension Comment: labile control (10) Hypomagnesemia Code(s): E83.42 - HYPOMAGNESEMIA Status: Resolved - Plan continue antibiotics, long term care social worker, respiratory therapy, DVT proph w/SCDs Continue pulmonary support with mech vent -: Continue Meropenem -: Nutritional support with TPN/TF's with Vital HP -: Continue Lantus/ISS -: AM lab: BMP, Mg++, ABG * PCXR in am
[2019-01-29] MEDS: Enoxaparin Sodium 40 MG/0.4 ML SYRINGE SC SCH (20:49)
[2019-01-29] MEDS: Ketorolac Tromethamine 30 MG/ML VIAL IVP PRN (23:00)
[2019-01-30] MEDS: MEROPENEM 1 GM/50 ML 1 GM in Premix Bag 1 BAG IVPB SCH ×3 (01:27→17:17)
[2019-01-30] MEDS: traMADol HCl 50 MG TAB PO PRN (01:52)
[2019-01-30 05:42] LABS: Anion Gap 11 mmol/L (10-20); BUN (Urea Nitrogen) 33 mg/dL (9.8-20.1); Calc. Creatinine Clearance 88 mL/min (70-130); Carbon Dioxide 33 mmol/L (23-31); Chloride 102 mmol/L (98-107); Estimated GFR-MDRD Greater than 90; Glucose 104 mg/dL (80-115); Magnesium 1.9 mg/dL (1.6-2.6); Sodium 143 mmol/L (136-145)
[2019-01-30 05:53] LABS: Potassium 2.9 mmol/L (3.5-5.1)
[2019-01-30] MEDS: Arformoterol 15 MCG/2 ML NEB NEB SCH ×2 (06:38→19:05)
[2019-01-30] MEDS: Budesonide 0.5 MG/2 ML NEB INH SCH ×2 (06:40→19:06)
[2019-01-30 06:56] LABS: Actual Bicarbonate (HCO3a) 33.8 mEq/L (22-28); Base Excess (BEa) 9.8 mEq/L (-2.0 to +3.0); CO2 Tension 43.4 mmHg (35.0-45.0); Calcium, Ionized 1.13 mmol/L (1.12-1.30); Carboxyhemoglobin (COHb) 0.6 gm% (0.0-3.0); Hemoglobin (Hb) 10.5 g/dL (12.0-16.0); O2 Tension (PaO2) 62.9 mmHg (> 80.0); pH, Arterial 7.51 (7.35-7.45)
--- NOTE | 2019-01-30 07:54 | RAD ---
EXAM: CHEST ONE VIEW HISTORY: Post thoracotomy. Follow-up evaluation. COMPARISON: 01/29/2019 FINDINGS: Endotracheal tube, Dobbhoff feeding tube, left-sided PICC line, and 2 right-sided thoracostomy tubes remain in place and unchanged in position. Right subclavian central venous catheter has been removed. Bibasilar parenchymal lung changes are noted which may be related to atelectasis versus pneu monia. There has been overall improvement in aeration the upper right hemithorax compared to prior exam. Cardiac silhouette is stable in appearance. Pulmonary vasculature is within normal limits. The osseous structures are intact. Skin clips again overlie the lateral right chest. IMPRESSION: 1. Mild improvement in aeration in the right upper and mid lung zone with persistent bibasilar pleura l and parenchymal lung changes. 2. Right-sided thoracostomy tubes are unchanged in position and no obvious pneumothorax is seen.
[2019-01-30 08:26] LABS: Puncture Site RRA
--- NOTE | 2019-01-30 08:48 | PRG ---
DATE OF SERVICE: 01/30/2019 SUBJECTIVE: This morning, she is awake, alert, and responsive. X-ray shows improvement in bilateral infiltrates, the right lung. OBJECTIVE: VITAL SIGNS: Blood pressure is 155/77, pulse 87, saturations 97%, and respiratory rate 18, temperature 100.8 F. CHEST: Decreased breath sounds. No wheezing. CARDIAC: Normal S1, S2. No gallop. ABDOMEN: No masses. LABORATORY DATA: She has methicillin-resistant Staph and Klebsiella from her abdomen and methicillin-resistant Staph from bronch washings. She has been on Zyvox earlier about three weeks ago. Lytes are normal. Potassium 2.9. Chest x-ray shows much improvement. IMPRESSION: 1. Status post decortication. 2. Status post previous drainage from a percutaneous abdominal catheter. 3. Severe deconditioning. 4. Chronic pain. PLAN: Discontinue vent. Continue supportive care, PT. We will follow. One-half hour of critical care time. Job ID: [id number]
[2019-01-30] MEDS: Ferrous Sulfate 325 MG TAB PO SCH ×2 (08:57→16:09)
[2019-01-30] MEDS: Amlodipine 10 MG TAB PO SCH (08:57)
[2019-01-30] MEDS: Gabapentin 300 MG CAP PO SCH ×3 (08:58→20:52)
[2019-01-30] MEDS: Sodium Chloride 0.9% (PF) 10 ML VIAL FS PRN (08:58)
[2019-01-30] MEDS: Pantoprazole 40 MG VIAL IVP SCH (08:58)
[2019-01-30] MEDS ORDERED: Vancomycin HCl 1 GM in Sodium Chloride 0.9% 250 ML 300 ML IVPB SCH (09:00)
[2019-01-30] MEDS: Insulin Glargine 25 UNITS in Pre-Filled Syringe 1 EACH SC SCH (09:21)
[2019-01-30] MEDS: Vancomycin HCl 1 GM in Premix Bag 1 BAG IVPB SCH ×2 (09:21→20:51)
[2019-01-30] MEDS: K-Phos Neutral 250 MG TAB PO SCH ×3 (09:23→16:18)
[2019-01-30] MEDS: Labetalol HCl 100 MG/20 ML VIAL SLOW IVP PRN ×2 (10:38→16:06)
[2019-01-30] MEDS: fentaNYL 50 mcg/hour Patch TD SCH (11:06)
[2019-01-30] MEDS ORDERED: cloNIDine 0.2 MG TAB PO SCH ×2 (12:15→21:00)
--- NOTE | 2019-01-30 13:38 | PDOC.GSPN ---
Surgery Progress Note: Subj - Subjective Narrative: Extubated, c/o nausea. TF at 25ml/hr Surgery Progress Note: Obj - Vital signs Vital signs: Vital Signs - Most Recent Temp Pulse Resp BP Pulse Ox 101.1 F H 87 22 H 210/82 H 99 01/29/19 08:00 01/30/19 10:38 01/30/19 08:00 01/30/19 10:38 01/30/19 08:03 - Physical Exam General: no distress Abdomen: soft, non tender, nondistended Wound: other (well healed. ELEANOR bilious but only 40ml/day) Surgery Progress Note: Results - Labs Result Diagrams: 01/28/19 04:05 01/30/19 05:08 Lab results: Laboratory Results - last 24 hr 01/27/19 01/30/19 01/30/19 Unknown 05:08 06:11 Specimen Type Puncture Site Bicarbonate Actual ABG pH ABG pCO2 ABG pO2 ABG O2 Sat Calc/Nila ABG O2 Content ABG Base Excess ABG Hematocrit ABG Hemoglobin ABG Oxyhemoglobin ABG Carboxyhemoglobin ABG Methemoglobin ABG Deoxyhemoglobin Jose Test A-a O2 Gradient Ionized Calcium Mode of Support Mechanical Rate Inspired O2 Tidal Volume Pressure Support PEEP or CPAP Sodium 143 Potassium 2.9 L* Chloride 102 Carbon Dioxide 33 H Anion Gap 11 BUN 33 H Creatinine 0.64 Estimated GFR (MDRD) Greater than 90 Glucose 104 POC Glucose 102 Calcium 8.0 Magnesium 1.9 Fluid Diff Path Review 01/30/19 01/30/19 06:30 11:23 Specimen Type ARTERIAL Puncture Site RRA Bicarbonate Actual 33.8 H ABG pH 7.51 H ABG pCO2 43.4 ABG pO2 62.9 ABG O2 Sat Calc/Nila 92.2 L ABG O2 Content 13.5 L ABG Base Excess 9.8 H ABG Hematocrit 31.0 L ABG Hemoglobin 10.5 L ABG Oxyhemoglobin 91.4 L ABG Carboxyhemoglobin 0.6 ABG Methemoglobin 0.30 ABG Deoxyhemoglobin 7.7 H Jose Test NOT DONE A-a O2 Gradient 96.750 H Ionized Calcium 1.13 Mode of Support SIMV.PSV Mechanical Rate 5 Inspired O2 30 Tidal Volume 380 Pressure Support 15 PEEP or CPAP 5.0 Sodium 145 Potassium 3.50 L Chloride 104 Carbon Dioxide Anion Gap BUN Creatinine Estimated GFR (MDRD) Glucose POC Glucose 129 H Calcium Magnesium Fluid Diff Path Review Surgery Progress Note: A/P - Problem (1) Perforated duodenal ulcer with hemorrhage Current Visit: Yes Code(s): K26.6 - CHRONIC OR UNSP DUODENAL ULCER W BOTH HEMORRHAGE AND PERF Status: Acute - Plan Plan: Duodenal stump leak -Drain replaced, low output -s/p decortication, extubated -cont TF for now. Her duodenal stump output is minimal now. should close soon
--- NOTE | 2019-01-30 18:44 | PDOC.PN ---
- Subjective Encounter Start Date: 01/30/19 Encounter Start Time: 18:00 Subjective: f/u for severe sepsis due to empyema, recurrent abd abscess from duodenal -: stump leak s/p thoracotomy with decortication and ELEANOR drain placement. -: Extubated today and tolerating enteral TF's with Vital HP @ 25ml/h - Objective Resuscitation Status - Order Detail: 12/24/18 21:39 Resuscitation Status Routine Resuscitation Status: FULL: Full Resuscitation MAR Reviewed: Yes Vital Signs & Weight: Vital Signs (12 hours) Pulse Resp BP Pulse Ox 01/30/19 16:08 191/84 H 01/30/19 16:06 85 191/84 H 01/30/19 12:00 98 01/30/19 10:38 87 210/82 H 01/30/19 08:57 87 146/73 H 01/30/19 08:03 99 01/30/19 08:00 22 H 97 Weight Admit Weight 125 lb 3.2 oz Weight 136 lb 10.986 oz Most Recent Monitor Data Heart Rate from ECG 76 NIBP 177/65 NIBP BP-Mean 118 Respiration from ECG 19 SpO2 100 I&O: 01/29/19 01/30/19 01/31/19 06:59 06:59 06:59 Intake Total 2632.5 2171.8 730 Output Total 2960 3780 2120 Balance -327.5 -1608.2 -1390 Result Diagrams: 01/28/19 04:05 01/30/19 05:08 Additional Labs: Accuchecks 01/30/19 01/30/19 01/29/19 11:23 06:11 20:46 POC Glucose 129 H 102 153 H 01/29/19 16:55 POC Glucose 208 H Microbiology 01/27/19 13:30 Abdomen - Abscess Bacterial Culture - Preliminary Staphylococcus aureus Klebsiella pneumoniae ssp pneu Laboratory Tests 01/18/19 01/19/19 01/20/19 05:08 05:30 07:39 WBC Hgb 6.2 L 8.3 L 9.0 L Sodium Potassium Phosphorus Magnesium 01/21/19 01/23/19 01/27/19 03:50 04:24 04:04 WBC 12.4 H Hgb 8.1 L 10.2 L Sodium 146 H Potassium 3.1 L Phosphorus Magnesium 06/23/19 06/23/19 03:30 03:40 WBC Hgb Sodium Potassium Phosphorus 3.8 Magnesium 1.5 L Radiology Reviewed by me: Yes (PCXR - persistent R-sided infiltrate, CT in place ) EKG Reviewed by me: Yes (Tele - SR) Phys Exam - Physical Examination Constitutional: NAD HEENT: PERRLA, sclera anicteric, oral pharynx no lesions Neck: no nodes, no JVD, supple, full ROM diminished R hemithorax, occ rhonchi S1, S2 Cardiovascular: RRR, no significant murmur, no rub, gallop ELEANOR drain in place Gastrointestinal: soft, no distention, positive bowel sounds Musculoskeletal: no edema, pulses present Neurological: normal sensation, moves all 4 limbs Skin: normal turgor, cap refill <2 seconds Dx/Plan (1) Severe sepsis Code(s): A41.9 - SEPSIS, UNSPECIFIED ORGANISM; R65.20 - SEVERE SEPSIS WITHOUT SEPTIC SHOCK Status: Acute Comment: Secondary to abd abscess and empyema, continue Meropenem and chest tube drainage, isolated Klebsiella/MRSA spp, Vancomycin added (2) Empyema lung Code(s): J86.9 - PYOTHORAX WITHOUT FISTULA Status: Acute Comment: s/p thoracotomy with decortication and chest tube, monitor for clinical improvement (3) Acute respiratory failure with hypoxia Code(s): J96.01 - ACUTE RESPIRATORY FAILURE WITH HYPOXIA Status: Acute Comment: Extubated 01/30/19, serial PCXR (4) Duodenal ulcer, perforated Code(s): K26.5 - CHRONIC OR UNSPECIFIED DUODENAL ULCER WITH PERFORATION Status : Acute Comment: s/p antrectomy, with duodenal stump leak postop, Dr. Morgan following, CT with persistent leak 01/10/19, CT guided percutaneous drain placement 01/11/19, TPN d/c'd, continue TF's with Vital HP @ 25ml/h (5) Anemia due to acute blood loss Code(s): D62 - ACUTE POSTHEMORRHAGIC ANEMIA Status: Acute Comment: s/p total 7 unit PRBC, H/H stable currently (6) Hypokalemia Code(s): E87.6 - HYPOKALEMIA Status: Acute Comment: KCL replacement, serial K+ monitoring (7) Chronic pain disorder Code(s): G89.4 - CHRONIC PAIN SYNDROME Status: Chronic (8) Diabetes type 2, controlled Code(s): E11.9 - TYPE 2 DIABETES MELLITUS WITHOUT COMPLICATIONS Status: Chronic Qualifiers: Diabetes mellitus fdc insulin use: with fdc use Comment: ISS, decrease Lantus, ADA when tolerating po intake (9) HTN (hypertension) Code(s): I10 - ESSENTIAL (PRIMARY) HYPERTENSION Status: Chronic Qualifiers: Hypertension type: essential hypertension Comment: labile control (10) Hypomagnesemia Code(s): E83.42 - HYPOMAGNESEMIA Status: Resolved - Plan continue antibiotics, PT/OT, social science teacher, respiratory therapy, DVT proph w/ SCDs Continue supportive mgmt -: Continue Meropenem/Vancomycin -: Nutritional support Vital HP @ 25ml/h -: Increase KCL 40meq TID -: Decrease Lantus 5u sc AM * AM lab: BMP, Mg++
[2019-01-30] MEDS: cloNIDine 0.2 MG TAB PO SCH (20:52)
[2019-01-30] MEDS: Enoxaparin Sodium 40 MG/0.4 ML SYRINGE SC SCH (20:53)
[2019-01-31] MEDS: Ketorolac Tromethamine 30 MG/ML VIAL IVP PRN (00:42)
[2019-01-31] MEDS: MEROPENEM 1 GM/50 ML 1 GM in Premix Bag 1 BAG IVPB SCH ×3 (04:07→17:32)
[2019-01-31 05:58] LABS: Anion Gap 11 mmol/L (10-20); BUN (Urea Nitrogen) 24 mg/dL (9.8-20.1); Calc. Creatinine Clearance 104 mL/min (70-130); Calcium 8.3 mg/dL (7.8-10.44); Carbon Dioxide 35 mmol/L (23-31); Chloride 104 mmol/L (98-107); Estimated GFR-MDRD Greater than 90; Magnesium 1.4 mg/dL (1.6-2.6); Sodium 147 mmol/L (136-145)
[2019-01-31 06:01] LABS: Glucose 49 mg/dL (80-115); Potassium 2.7 mmol/L (3.5-5.1)
[2019-01-31] MEDS: Arformoterol 15 MCG/2 ML NEB NEB SCH ×2 (07:34→18:37)
[2019-01-31] MEDS: Budesonide 0.5 MG/2 ML NEB INH SCH ×2 (07:35→18:39)
--- NOTE | 2019-01-31 08:06 | RAD ---
PORTABLE CHEST: Date: 01/31/19 HISTORY: Status post thoracotomy. COMPARISON: Prior day's exam. FINDINGS: Heart size is enlarged. Endotracheal tube and Dobbhoff feeding tube, as well as left-sided PICC line are all unchanged in position. Right chest tube is unchanged. Pleural and parenchymal changes in the right base are stable. IMPRESSION: Stable exam. POS: NO
[2019-01-31] MEDS: Amlodipine 10 MG TAB PO SCH (08:27)
[2019-01-31] MEDS: Ferrous Sulfate 325 MG TAB PO SCH ×3 (08:29→16:32)
[2019-01-31] MEDS: cloNIDine 0.2 MG TAB PO SCH ×2 (08:29→20:21)
[2019-01-31] MEDS: K-Phos Neutral 250 MG TAB PO SCH ×3 (08:29→16:49)
[2019-01-31] MEDS: Gabapentin 300 MG CAP PO SCH ×3 (08:36→20:21)
[2019-01-31] MEDS: Sodium Chloride 0.9% (PF) 10 ML VIAL FS PRN (08:39)
[2019-01-31] MEDS: Pantoprazole 40 MG VIAL IVP SCH (08:39)
[2019-01-31] MEDS: Vancomycin HCl 1 GM in Premix Bag 1 BAG IVPB SCH ×2 (08:59→21:35)
[2019-01-31] MEDS: Insulin Glargine 5 UNITS in Pre-Filled Syringe SC SCH (09:00)
--- NOTE | 2019-01-31 09:06 | PRG ---
DATE OF SERVICE: 01/31/2019 SUBJECTIVE: This morning, the patient is awake, alert, responsive, much improved. Chest x-ray shows atelectatic change in the right base, otherwise unremarkable. She is no longer in any distress. OBJECTIVE: VITAL SIGNS: Saturations are 95% on 2 L, blood pressure 180/80, pulse 95, respiratory rate 29. CHEST: Reveals decreased breath sounds. No wheezing. CARDIAC: Normal S1, S2. No gallops. ABDOMEN: No masses. ASSESSMENT: 1. Methicillin-resistant Staphylococcus aureus wound, may be colonization. 2. Hypokalemia. 3. Congestive heart failure. 4. Status post decortication. PLAN: Vancomycin for GI, MRSA. Meropenem for pulmonary infection, decortication. Once the chest tube is discontinued, I will probably discontinue the meropenem. Continue PT, supportive care. She can be transferred out of the ICU to a monitored bed. Continue PT, supportive care. One half hour critical care time. Job ID: [id number]
[2019-01-31] MEDS: Pot Chloride/Pot Bicarb/Cit Ac 25 mEq Effervescent Tablet PO SCH ×2 (10:12→21:52)
[2019-01-31] MEDS ORDERED: Magnesium Sulfate 4 GM in Sodium Chloride 0.9% 250 ML 250 ML IVPB SCH (10:30)
--- NOTE | 2019-01-31 15:30 | PDOC.PN ---
- Subjective Encounter Start Date: 01/31/19 Encounter Start Time: 15:25 Subjective: f/u for abd abscess, recurrent R empyema s/p CT and decortication -: tx with Meropenem/Vancomycin. Nsg reports multiple loose stools. -: Receiving TF's with Vital HP. - Objective Resuscitation Status - Order Detail: 12/24/18 21:39 Resuscitation Status Routine Resuscitation Status: FULL: Full Resuscitation MAR Reviewed: Yes Vital Signs & Weight: Vital Signs (12 hours) Temp Pulse Resp BP Pulse Ox 01/31/19 08:29 198/89 H 01/31/19 08:27 90 189/81 H 01/31/19 08:00 98 01/31/19 07:35 97 01/31/19 07:34 84 30 H 97 01/31/19 04:00 98.9 F Weight Admit Weight 125 lb 3.2 oz Weight 138 lb 3.2 oz Most Recent Monitor Data Heart Rate from ECG 83 NIBP 162/78 NIBP BP-Mean 95 Respiration from ECG 23 SpO2 96 I&O: 01/30/19 01/31/19 02/01/19 06:59 06:59 06:59 Intake Total 2171.8 1637 650 Output Total 3780 4350 910 Balance -1608.2 -2713 -260 Result Diagrams: 01/28/19 04:05 01/31/19 05:00 Additional Labs: Accuchecks 01/31/19 01/31/19 01/30/19 10:25 07:33 21:52 POC Glucose 125 H 102 87 01/30/19 01/30/19 17:45 17:23 POC Glucose 103 40 L* Microbiology 01/27/19 13:30 Abdomen - Abscess Bacterial Culture - Preliminary Staphylococcus aureus Klebsiella pneumoniae ssp pneu Laboratory Tests 01/18/19 01/19/19 01/20/19 05:08 05:30 07:39 WBC Hgb 6.2 L 8.3 L 9.0 L Sodium Potassium Phosphorus Magnesium 01/21/19 01/23/19 01/27/19 03:50 04:24 04:04 WBC 12.4 H Hgb 8.1 L 10.2 L Sodium 146 H Potassium 3.1 L Phosphorus Magnesium 01/29/19 01/29/19 01/30/19 03:30 03:40 05:08 WBC Hgb Sodium 143 143 Potassium 4.0 2.9 L* Phosphorus 3.8 Magnesium 1.5 L 1.9 01/31/19 05:00 WBC Hgb Sodium Potassium Phosphorus Magnesium 1.4 L Radiology Reviewed by me: Yes (PCXR - R-sided consolidation, Dobhoff, PICC and R CT in place) EKG Reviewed by me: Yes (Tele - SR) Phys Exam - Physical Examination alert, tired-appearing HEENT: PERRLA, sclera anicteric, oral pharynx no lesions Neck: no nodes, no JVD, supple, full ROM diminished in R base, scattered rhonchi Respiratory: no wheezing S1, S2 Cardiovascular: RRR, no significant murmur, no rub, gallop Gastrointestinal: soft, non-tender, no distention, positive bowel sounds Musculoskeletal: no edema, pulses present Neurological: normal sensation, moves all 4 limbs Skin: normal turgor, cap refill <2 seconds Dx/Plan (1) Severe sepsis Code(s): A41.9 - SEPSIS, UNSPECIFIED ORGANISM; R65.20 - SEVERE SEPSIS WITHOUT SEPTIC SHOCK Status: Acute Comment: Secondary to abd abscess and empyema, continue Meropenem and chest tube drainage, isolated Klebsiella/MRSA spp, Vancomycin added (2) Empyema lung Code(s): J86.9 - PYOTHORAX WITHOUT FISTULA Status: Acute Comment: s/p thoracotomy with decortication and chest tube, monitor for clinical improvement (3) Acute respiratory failure with hypoxia Code(s): J96.01 - ACUTE RESPIRATORY FAILURE WITH HYPOXIA Status: Acute Comment: Extubated 01/30/19, serial PCXR (4) Duodenal ulcer, perforated Code(s): K26.5 - CHRONIC OR UNSPECIFIED DUODENAL ULCER WITH PERFORATION Status : Acute Comment: s/p antrectomy, with duodenal stump leak postop, Dr. Morgan following, CT with persistent leak 01/10/19, CT guided percutaneous drain placement 01/11/19, TPN d/c'd, continue TF's with Vital HP @ 25ml/h (5) Anemia due to acute blood loss Code(s): D62 - ACUTE POSTHEMORRHAGIC ANEMIA Status: Acute Comment: s/p total 7 unit PRBC, H/H stable currently (6) Hypokalemia Code(s): E87.6 - HYPOKALEMIA Status: Acute Comment: KCL replacement, serial K+ monitoring, concomitant Mg++ replacement (7) Chronic pain disorder Code(s): G89.4 - CHRONIC PAIN SYNDROME Status: Chronic (8) Diabetes type 2, controlled Code(s): E11.9 - TYPE 2 DIABETES MELLITUS WITHOUT COMPLICATIONS Status: Chronic Qualifiers: Diabetes mellitus retirement insulin use: with termite control representative use Comment: ISS, decrease Lantus, ADA when tolerating po intake (9) HTN (hypertension) Code(s): I10 - ESSENTIAL (PRIMARY) HYPERTENSION Status: Chronic Qualifiers: Hypertension type: essential hypertension Comment: labile control (10) Hypomagnesemia Code(s): E83.42 - HYPOMAGNESEMIA Status: Acute Comment: Magnesium 4gm IV - Plan continue antibiotics, PT/OT, social work specialist, respiratory therapy, DVT proph w/ SCDs Continue supportive mgmt -: Continue Meropenem/Vancomycin -: Check stool cx, c. diff -: Florastor 250mg daily -: AM lab: BMP, Mg++ * .
--- NOTE | 2019-01-31 16:15 | PDOC.GSPN ---
Surgery Progress Note: Subj - Subjective Narrative: Doing well after extubation. Nervous at times, anxious, having trouble sleeping Surgery Progress Note: Obj - Vital signs Vital signs: Vital Signs - Most Recent Temp Pulse Resp BP Pulse Ox 98.9 F 90 30 H 198/89 H 98 01/31/19 04:00 01/31/19 08:27 01/31/19 07:34 01/31/19 08:29 01/31/19 08:00 - Physical Exam General: no distress Cardiovascular: regular rate and rhythm Respiratory: clear to auscultation Abdomen: soft, non tender, nondistended Wound: other (well healed Drain: bilious, decreased output) Surgery Progress Note: Results - Labs Result Diagrams: 01/28/19 04:05 01/31/19 05:00 Lab results: Laboratory Results - last 24 hr 01/26/19 01/30/19 01/31/19 12:49 21:52 05:00 Sodium 147 H Potassium 2.7 L* Chloride 104 Carbon Dioxide 35 H Anion Gap 11 BUN 24 H Creatinine 0.54 L Estimated GFR (MDRD) Greater than 90 Glucose 49 L* POC Glucose 87 Calcium 8.3 Magnesium 1.4 L Fungal Smear Not Reportable 01/31/19 01/31/19 07:33 10:25 Sodium Potassium Chloride Carbon Dioxide Anion Gap BUN Creatinine Estimated GFR (MDRD) Glucose POC Glucose 102 125 H Calcium Magnesium Fungal Smear Surgery Progress Note: A/P - Problem (1) Perforated duodenal ulcer with hemorrhage Current Visit: Yes Code(s): K26.6 - CHRONIC OR UNSP DUODENAL ULCER W BOTH HEMORRHAGE AND PERF Status: Acute - Plan Plan: Add something for sleep continue TF Drain output down, fistula closing continue antibiotics
[2019-01-31] MEDS: Enoxaparin Sodium 40 MG/0.4 ML SYRINGE SC SCH (20:22)
[2019-01-31 20:43] LABS: Vancomycin, Trough 19.2 ug/mL
[2019-01-31] MEDS: ALPRAZolam 0.5 MG TAB PO PRN (21:37)
[2019-02-01] MEDS: MEROPENEM 1 GM/50 ML 1 GM in Premix Bag 1 BAG IVPB SCH ×3 (02:04→17:18)
[2019-02-01 03:57] LABS: Anion Gap 10 mmol/L (10-20); BUN (Urea Nitrogen) 24 mg/dL (9.8-20.1); Calc. Creatinine Clearance 93 mL/min (70-130); Calcium 8.2 mg/dL (7.8-10.44); Carbon Dioxide 34 mmol/L (23-31); Chloride 103 mmol/L (98-107); Estimated GFR-MDRD Greater than 90; Glucose 135 mg/dL (80-115); Magnesium 1.9 mg/dL (1.6-2.6); Potassium 3.1 mmol/L (3.5-5.1); Sodium 144 mmol/L (136-145)
[2019-02-01] MEDS: Budesonide 0.5 MG/2 ML NEB INH SCH ×2 (07:26→18:36)
[2019-02-01] MEDS: Arformoterol 15 MCG/2 ML NEB NEB SCH ×2 (07:26→18:35)
--- NOTE | 2019-02-01 08:09 | RAD ---
PORTABLE CHEST: HISTORY: The patient is status post thoracotomy. COMPARISON: Prior day's study. FINDINGS: The pleural and parenchymal lung changes appear essentially stable as compared to the prior exam. Ri ght-sided chest tubes are unchanged in position. IMPRESSION: Overall stable chest. POS: JAMES
[2019-02-01] MEDS: K-Phos Neutral 250 MG TAB PO SCH ×3 (08:36→17:17)
[2019-02-01] MEDS: Gabapentin 300 MG CAP PO SCH ×3 (08:36→21:54)
[2019-02-01] MEDS: Pot Chloride/Pot Bicarb/Cit Ac 25 mEq Effervescent Tablet PO SCH ×2 (08:36→22:08)
[2019-02-01] MEDS: Vancomycin HCl 1 GM in Premix Bag 1 BAG IVPB SCH ×2 (08:37→21:53)
[2019-02-01] MEDS: Saccharomyces boulardii 250 MG CAP PO SCH (08:37)
[2019-02-01] MEDS: cloNIDine 0.2 MG TAB PO SCH ×2 (08:37→21:53)
[2019-02-01] MEDS: Amlodipine 10 MG TAB PO SCH (08:37)
[2019-02-01] MEDS: Pantoprazole 40 MG VIAL IVP SCH (08:37)
[2019-02-01] MEDS: Insulin Glargine 5 UNITS in Pre-Filled Syringe SC SCH (08:38)
--- NOTE | 2019-02-01 09:49 | PRG ---
DATE OF SERVICE: 02/01/2019 SUBJECTIVE: This morning, she looks much better, less short of breath, sitting inside the bed without any oxygen and her saturations are much improved. X-ray showed bibasilar atelectatic area. Chest tube in good position. Cultures, all negative except for methicillin-resistant staphylococcus aureus Klebsiella in the abdominal draining area. OBJECTIVE: VITAL SIGNS: Pulse 76, respiratory rate 22, blood pressure 162/87. CHEST: Decreased breath sounds. No wheezing. CARDIAC: Normal S1 and S2. No gallop. ABDOMEN: No masses. IMPRESSION: 1. Hypertension. 2. Status post laparoscopy. 3. Status post decortication. 4. Severe deconditioning. 5. Major anxiety. PLAN: Pulmonary mauricio, antibiotics as noticed. PT, supportive care. She can probably be transferred to the surgical floor once the chest tube is removed. Job ID: [id number]
[2019-02-01] MEDS: Ferrous Sulfate 325 MG TAB PO SCH (17:17)
--- NOTE | 2019-02-01 17:51 | PDOC.PN ---
- Subjective Encounter Start Date: 02/01/19 Encounter Start Time: 13:05 Subjective: f/u for abd abscess with MRSA/Klebsiella on Meropenem/Vanc. Remains -: with R CT secondary to empyema. - Objective Resuscitation Status - Order Detail: 12/24/18 21:39 Resuscitation Status Routine Resuscitation Status: FULL: Full Resuscitation MAR Reviewed: Yes Vital Signs & Weight: Vital Signs (12 hours) Temp Pulse Resp BP Pulse Ox 02/01/19 14:48 98.2 F 02/01/19 10:43 98.0 F 02/01/19 08:37 86 198/89 H 02/01/19 08:00 97 02/01/19 07:26 86 22 H 96 Weight Admit Weight 125 lb 3.2 oz Weight 138 lb 6.4 oz Most Recent Monitor Data Heart Rate from ECG 83 NIBP 151/82 NIBP BP-Mean 105 Respiration from ECG 10 SpO2 96 I&O: 01/31/19 02/01/19 02/02/19 06:59 06:59 06:59 Intake Total 1637 2447 Output Total 4350 2580 Balance -2713 -133 Result Diagrams: 01/28/19 04:05 02/01/19 02:10 Additional Labs: Accuchecks 02/01/19 02/01/19 01/31/19 16:19 14:22 20:47 POC Glucose 145 H 145 H 117 H 01/31/19 16:41 POC Glucose 128 H Microbiology 01/27/19 13:30 Abdomen - Abscess Bacterial Culture - Preliminary Staphylococcus aureus Klebsiella pneumoniae ssp pneu Laboratory Tests 01/18/19 01/19/19 01/20/19 05:08 05:30 07:39 WBC Hgb 6.2 L 8.3 L 9.0 L Sodium Potassium Phosphorus Magnesium 01/21/19 01/23/19 01/27/19 03:50 04:24 04:04 WBC 12.4 H Hgb 8.1 L 10.2 L Sodium 146 H Potassium 3.1 L Phosphorus Magnesium 01/29/19 01/29/19 01/30/19 03:30 03:40 05:08 WBC Hgb Sodium 143 143 Potassium 4.0 2.9 L* Phosphorus 3.8 Magnesium 1.5 L 1.9 01/31/19 05:00 WBC Hgb Sodium Potassium Phosphorus Magnesium 1.4 L Radiology Reviewed by me: Yes (PCXR - no specific changes, lines/CT in place) EKG Reviewed by me: Yes (Tele - SR) Phys Exam - Physical Examination Constitutional: NAD HEENT: PERRLA, sclera anicteric, oral pharynx no lesions Neck: no nodes, no JVD, supple, full ROM diminished on R and bilat bases S1, S2 Cardiovascular: RRR, no significant murmur, no rub, gallop Gastrointestinal: soft, non-tender, no distention, positive bowel sounds Musculoskeletal: no edema, pulses present Neurological: moves all 4 limbs Skin: normal turgor, cap refill <2 seconds Dx/Plan (1) Severe sepsis Code(s): A41.9 - SEPSIS, UNSPECIFIED ORGANISM; R65.20 - SEVERE SEPSIS WITHOUT SEPTIC SHOCK Status: Acute Comment: Secondary to abd abscess and empyema, continue Meropenem and chest tube drainage, isolated Klebsiella/MRSA spp, Vancomycin added (2) Empyema lung Code(s): J86.9 - PYOTHORAX WITHOUT FISTULA Status: Acute Comment: s/p thoracotomy with decortication and chest tube, monitor for clinical improvement , CT in appropriate position (3) Acute respiratory failure with hypoxia Code(s): J96.01 - ACUTE RESPIRATORY FAILURE WITH HYPOXIA Status: Acute Comment: Extubated 01/30/19, serial PCXR, remains on RA (4) Duodenal ulcer, perforated Code(s): K26.5 - CHRONIC OR UNSPECIFIED DUODENAL ULCER WITH PERFORATION Status : Acute Comment: s/p antrectomy, with duodenal stump leak postop, Dr. Morgan following, CT with persistent leak 01/10/19, CT guided percutaneous drain placement 01/11/19, TPN d/c'd, Glucerna 1.2 with goal rate 40ml/h, Prostat (5) Anemia due to acute blood loss Code(s): D62 - ACUTE POSTHEMORRHAGIC ANEMIA Status: Acute Comment: s/p total 7 unit PRBC, H/H stable currently (6) Hypokalemia Code(s): E87.6 - HYPOKALEMIA Status: Acute Comment: KCL replacement, serial K+ monitoring, concomitant Mg++ replacement (7) Chronic pain disorder Code(s): G89.4 - CHRONIC PAIN SYNDROME Status: Chronic (8) Diabetes type 2, controlled Code(s): E11.9 - TYPE 2 DIABETES MELLITUS WITHOUT COMPLICATIONS Status: Chronic Qualifiers: Diabetes mellitus long term care social worker insulin use: with penitentiary use Comment: ISS, decrease Lantus, ADA when tolerating po intake (9) HTN (hypertension) Code(s): I10 - ESSENTIAL (PRIMARY) HYPERTENSION Status: Chronic Qualifiers: Hypertension type: essential hypertension Comment: labile control (10) Hypomagnesemia Code(s): E83.42 - HYPOMAGNESEMIA Status: Acute Comment: Magnesium 4gm IV - Plan continue antibiotics, PT/OT, social research assistant, respiratory therapy, DVT proph w/ SCDs Stable currently -: Continue Meropenem/Vancomycin -: CT for R-hemithorax drainage -: Nutritional support with Glucerna 1.2, Prostat -: Continue Florastor * AM lab: BMP, Mg++
[2019-02-01] MEDS: Enoxaparin Sodium 40 MG/0.4 ML SYRINGE SC SCH (21:54)
[2019-02-01] MEDS: ALPRAZolam 0.5 MG TAB PO PRN (22:01)
[2019-02-02] MEDS: MEROPENEM 1 GM/50 ML 1 GM in Premix Bag 1 BAG IVPB SCH ×3 (01:49→16:59)
[2019-02-02] MEDS: Arformoterol 15 MCG/2 ML NEB NEB SCH ×2 (07:15→18:44)
[2019-02-02] MEDS: Budesonide 0.5 MG/2 ML NEB INH SCH ×2 (07:16→18:43)
--- NOTE | 2019-02-02 07:37 | RAD ---
EXAM: Single view of the chest HISTORY: Status post thoracotomy COMPARISON: 02/01/2019 FINDINGS: Single view of the chest shows a normal sized cardiomediastinal silhouette. Atelectasis is seen in the left lung base. The Dobbhoff tube and PICC line are unchanged in position. The right chest tubes have been removed without evidence of pneumothorax. There is no evidence of consolidatio n, mass, or pleural effusion. The bones are unremarkable. IMPRESSION: Status post right chest tube removal without evidence of pneumothorax.
[2019-02-02 08:38] LABS: Anion Gap 12 mmol/L (10-20); BUN (Urea Nitrogen) 20 mg/dL (9.8-20.1); Calc. Creatinine Clearance 87 mL/min (70-130); Calcium 7.6 mg/dL (7.8-10.44); Carbon Dioxide 30 mmol/L (23-31); Chloride 97 mmol/L (98-107); Estimated GFR-MDRD Greater than 90; Glucose 128 mg/dL (80-115); Magnesium 1.2 mg/dL (1.6-2.6); Sodium 136 mmol/L (136-145)
[2019-02-02 08:42] LABS: Potassium 2.8 mmol/L (3.5-5.1)
--- NOTE | 2019-02-02 08:46 | PRG ---
DATE OF SERVICE: 02/02/2019 SUBJECTIVE: Kiera is in day 39 in the hospital. Chest tube is removed, status post decortication, much improved. Less abdominal pain. Still bothers drainage. OBJECTIVE: VITAL SIGNS: Saturations are 96% on room air, respirations 18, temperature 98.5, and blood pressure 153/87. GENERAL: She appears to be calm, will relax after many days. CHEST: Decreased breath sounds. No wheezing. CARDIAC: Normal S1 and S2. No gallops. ABDOMEN: No masses. IMPRESSION: 1. Status post decortication. 2. Status post laparoscopy. 3. Status post encephalopathy. 4. Status post chronic pain. 5. Status post persistent nausea and vomiting. PLAN: She looks much improved. She can probably be transferred to the MICU. Continue present medication. Pulmonary will follow while in the MICU. Job ID: [id number]
[2019-02-02] MEDS: Amlodipine 10 MG TAB PO SCH (09:46)
[2019-02-02] MEDS: Ferrous Sulfate 325 MG TAB PO SCH ×2 (09:46→16:59)
[2019-02-02] MEDS: Insulin Glargine 5 UNITS in Pre-Filled Syringe SC SCH (09:48)
[2019-02-02] MEDS: cloNIDine 0.2 MG TAB PO SCH ×2 (09:48→20:46)
[2019-02-02] MEDS: Gabapentin 300 MG CAP PO SCH ×3 (09:48→20:47)
[2019-02-02] MEDS: Magnesium Oxide 400 MG TAB PO SCH ×2 (09:48→20:47)
[2019-02-02] MEDS: Saccharomyces boulardii 250 MG CAP PO SCH (09:49)
[2019-02-02] MEDS: Pantoprazole 40 MG VIAL IVP SCH (09:49)
[2019-02-02] MEDS: fentaNYL 50 mcg/hour Patch TD SCH (09:50)
[2019-02-02 10:13] LABS: Vancomycin, Trough 31.9 ug/mL
[2019-02-02] MEDS: Vancomycin HCl 1 GM in Premix Bag 1 BAG IVPB SCH ×2 (10:15→20:51)
[2019-02-02] MEDS ORDERED: Magnesium Sulfate 4 GM in Sodium Chloride 0.9% 250 ML 250 ML IVPB SCH (11:00)
[2019-02-02] MEDS ORDERED: Potassium Chloride 60 MEQ in Sodium Chloride 0.9% 250 ML 250 ML IVPB SCH (11:00)
[2019-02-02] MEDS: K-Phos Neutral 250 MG TAB PO SCH ×3 (11:08→16:59)
[2019-02-02] MEDS: Pot Chloride/Pot Bicarb/Cit Ac 25 mEq Effervescent Tablet PO SCH ×2 (11:09→21:17)
--- NOTE | 2019-02-02 15:28 | PDOC.PN ---
- Subjective Encounter Start Date: 02/02/19 Encounter Start Time: 15:25 Subjective: f/u for abd abscess, recurrent R empyema and sepsis from same s/p -: R CT now removed. Continues with abd drain, Meropenem/Vancomycin. -: Tolerating clear liquids/TF's. Sat EOB with PT. - Objective Resuscitation Status - Order Detail: 12/24/18 21:39 Resuscitation Status Routine Resuscitation Status: FULL: Full Resuscitation MAR Reviewed: Yes Vital Signs & Weight: Vital Signs (12 hours) Temp Pulse Pulse Pulse Resp BP BP 02/02/19 11:31 98.2 F 02/02/19 10:28 93 94 152/81 H 02/02/19 09:48 172/90 H 02/02/19 09:46 93 172/90 H 02/02/19 08:00 02/02/19 07:38 98.4 F 02/02/19 07:15 95 18 02/02/19 03:46 98.6 F BP Pulse Ox Pulse Ox Pulse Ox 02/02/19 11:31 02/02/19 10:28 174/82 H 98 99 02/02/19 09:48 02/02/19 09:46 02/02/19 08:00 98 02/02/19 07:38 02/02/19 07:15 96 02/02/19 03:46 Weight Admit Weight 125 lb 3.2 oz Weight 134 lb 11.239 oz Most Recent Monitor Data Heart Rate from ECG 94 NIBP 147/82 NIBP BP-Mean 103 Respiration from ECG 13 SpO2 98 I&O: 02/01/19 02/02/19 02/03/19 06:59 06:59 06:59 Intake Total 2447 7 60 Output Total 2580 1974 Balance -133 -18 60 Result Diagrams: 01/28/19 04:05 02/02/19 07:58 Additional Labs: Accuchecks 02/02/19 02/02/19 02/01/19 10:38 05:46 20:25 POC Glucose 152 H 129 H 139 H 02/01/19 16:19 POC Glucose 145 H Microbiology 01/27/19 13:30 Abdomen - Abscess Bacterial Culture - Preliminary Staphylococcus aureus Klebsiella pneumoniae ssp pneu Laboratory Tests 01/18/19 01/19/19 01/20/19 05:08 05:30 07:39 WBC Hgb 6.2 L 8.3 L 9.0 L Sodium Potassium Phosphorus Magnesium 01/21/19 01/23/19 01/27/19 03:50 04:24 04:04 WBC 12.4 H Hgb 8.1 L 10.2 L Sodium 146 H Potassium 3.1 L Phosphorus Magnesium 01/29/19 01/29/19 01/30/19 03:30 03:40 05:08 WBC Hgb Sodium 143 143 Potassium 4.0 2.9 L* Phosphorus 3.8 Magnesium 1.5 L 1.9 01/31/19 05:00 WBC Hgb Sodium Potassium Phosphorus Magnesium 1.4 L Radiology Reviewed by me: Yes (PCXR - post R CT removal, no PTX) EKG Reviewed by me: Yes (Tele - SR) Phys Exam - Physical Examination Constitutional: NAD HEENT: PERRLA, sclera anicteric, oral pharynx no lesions Neck: no nodes, no JVD, supple, full ROM diminished in bases Respiratory: no wheezing S1, S2 Cardiovascular: RRR, no significant murmur, no rub, gallop Drain in place Gastrointestinal: soft, non-tender, no distention, positive bowel sounds Musculoskeletal: no edema, pulses present Neurological: normal sensation, moves all 4 limbs Psychiatric: A&O x 3 Skin: normal turgor, cap refill <2 seconds Dx/Plan (1) Severe sepsis Code(s): A41.9 - SEPSIS, UNSPECIFIED ORGANISM; R65.20 - SEVERE SEPSIS WITHOUT SEPTIC SHOCK Status: Acute Comment: Secondary to abd abscess and empyema, continue Meropenem and chest tube drainage, isolated Klebsiella/MRSA spp, Vancomycin added (2) Empyema lung Code(s): J86.9 - PYOTHORAX WITHOUT FISTULA Status: Acute Comment: s/p thoracotomy with decortication and chest tube, monitor for clinical improvement , CT removed 02/01/19 (3) Acute respiratory failure with hypoxia Code(s): J96.01 - ACUTE RESPIRATORY FAILURE WITH HYPOXIA Status: Acute Comment: Extubated 01/30/19, serial PCXR, remains on RA (4) Duodenal ulcer, perforated Code(s): K26.5 - CHRONIC OR UNSPECIFIED DUODENAL ULCER WITH PERFORATION Status : Acute Comment: s/p antrectomy, with duodenal stump leak postop, Dr. Morgan following, CT with persistent leak 01/10/19, CT guided percutaneous drain placement 01/11/19, TPN d/c'd, Glucerna 1.2 with goal rate 40ml/h, Prostat, tolerating clear liquids (5) Anemia due to acute blood loss Code(s): D62 - ACUTE POSTHEMORRHAGIC ANEMIA Status: Acute Comment: s/p total 7 unit PRBC, H/H stable currently (6) Hypokalemia Code(s): E87.6 - HYPOKALEMIA Status: Acute Comment: KCL replacement, serial K+ monitoring, concomitant Mg++ replacement (7) Chronic pain disorder Code(s): G89.4 - CHRONIC PAIN SYNDROME Status: Chronic (8) Diabetes type 2, controlled Code(s): E11.9 - TYPE 2 DIABETES MELLITUS WITHOUT COMPLICATIONS Status: Chronic Qualifiers: Diabetes mellitus firmware software verification engineer insulin use: with half-way use Comment: ISS, decrease Lantus, ADA when tolerating po intake (9) HTN (hypertension) Code(s): I10 - ESSENTIAL (PRIMARY) HYPERTENSION Status: Chronic Qualifiers: Hypertension type: essential hypertension Comment: labile control (10) Hypomagnesemia Code(s): E83.42 - HYPOMAGNESEMIA Status: Acute Comment: Magnesium 4gm IV, Mag Oxide 400mg BID - Plan plan discussed w/ family, continue antibiotics, PT/OT, marriage and family social worker, respiratory therapy, out of bed/ambulate, DVT proph w/SCDs Stable currently -: Continue Meropenem/Vanc -: PT/OT for mobilization -: CM for SNF options, [facility]? -: AM lab: BMP, Mg++ * .
[2019-02-02] MEDS: traMADol HCl 50 MG TAB PO PRN (17:46)
[2019-02-02] MEDS: ALPRAZolam 0.5 MG TAB PO PRN (20:47)
[2019-02-02] MEDS: Enoxaparin Sodium 40 MG/0.4 ML SYRINGE SC SCH (20:48)
[2019-02-02] MEDS: Chloraseptic Spray 180 ml Bottle PO PRN (21:18)
[2019-02-03] MEDS: MEROPENEM 1 GM/50 ML 1 GM in Premix Bag 1 BAG IVPB SCH (01:21)
[2019-02-03] MEDS: traMADol HCl 50 MG TAB PO PRN ×2 (01:48→20:20)
[2019-02-03] MEDS: diphenhydrAMINE 50 MG/ML VIAL IVP PRN ×3 (01:56→17:05)
[2019-02-03 06:50] LABS: Anion Gap 12 mmol/L (10-20); BUN (Urea Nitrogen) 15 mg/dL (9.8-20.1); Calc. Creatinine Clearance 82 mL/min (70-130); Calcium 8.3 mg/dL (7.8-10.44); Carbon Dioxide 31 mmol/L (23-31); Chloride 95 mmol/L (98-107); Estimated GFR-MDRD 89; Glucose 116 mg/dL (80-115); Magnesium 1.3 mg/dL (1.6-2.6); Phosphorus 3.2 mg/dL (2.3-4.7); Potassium 3.2 mmol/L (3.5-5.1); Sodium 135 mmol/L (136-145)
[2019-02-03] MEDS: Arformoterol 15 MCG/2 ML NEB NEB SCH ×2 (07:50→19:23)
[2019-02-03] MEDS: Budesonide 0.5 MG/2 ML NEB INH SCH ×2 (07:52→19:24)
--- NOTE | 2019-02-03 07:59 | RAD ---
XR Chest 1 View Portable History: Thoracotomy Comparison: Radiograph prior day Findings: Enteric feeding tube is in place with below diaphragm and out of field of view. Layering ri ght effusion is similar. Mild blunting left lateral costophrenic sulcus with minor atelectatic changes. PICC catheter tip is similar. No pneumothorax. Impression: No significant change in the radiographic appearance of the chest. No residual pneumothor ax.
--- NOTE | 2019-02-03 09:07 | PRG ---
DATE OF SERVICE: 02/03/2019 SUBJECTIVE: This morning, she is better, less short of breath. X-ray shows right-sided atelectatic areas, but otherwise no new consolidation. OBJECTIVE: VITAL SIGNS: Saturations are 99% on room air, respiratory rate 21, pulse 103, temperature 98, blood pressure 160/80. CHEST: Decreased breath sounds. No wheezing. CARDIAC: Normal S1 and S2. No gallops. ABDOMEN: No masses. IMPRESSION: 1. Status post laparotomy. 2. Status post decortication. 3. Hypertension. 4. Severe deconditioning. 5. Chronic pain. PLAN: 1. Pulmonary mauricio, she has improved. Her asthma is stable. She is on vancomycin for MRSA in the abdomen. Up to Surgery to see how long she needs the antibiotic. 2. Meropenem was given for the pneumonia in the lung that has much improved. 3. Probably discontinue meropenem in the next several days. 4. We will follow. Job ID: [id number]
[2019-02-03] MEDS: Insulin Glargine 5 UNITS in Pre-Filled Syringe SC SCH (09:08)
[2019-02-03] MEDS: Saccharomyces boulardii 250 MG CAP PO SCH (09:08)
[2019-02-03] MEDS: cloNIDine 0.2 MG TAB PO SCH ×2 (09:09→20:04)
[2019-02-03] MEDS: Pot Chloride/Pot Bicarb/Cit Ac 25 mEq Effervescent Tablet PO SCH ×2 (09:11→20:04)
--- NOTE | 2019-02-03 09:11 | PRG ---
DATE OF SERVICE: 02/02/2019 SUBJECTIVE: Ms. Qureshi has no complaints today. She still notes some anxiety at times and states that she is "scared to fall asleep." However, she had significant good restful sleep last night after taking Ambien. She has been hemodynamically stable. OBJECTIVE: VITAL SIGNS: Her blood pressure is 170/90, her pulse is 105. She is afebrile. Urine output 800. ELEANOR drain only 10. She has had a couple of bowel movements. CHEST: Bilateral clear. HEART: Regular rate. ABDOMEN: Soft. Her midline incision is well healed. She has a perc drain in the right upper quadrant with a small amount of bile, but it has been very minimal. LABORATORY DATA: Her potassium is 2.8 today. Her magnesium was 1.2. ASSESSMENT: 1. Prolonged hospitalization started by duodenal perforation after esophagogastroduodenoscopy for bleeding chronic duodenal ulcer. The patient had multiple admissions over several months with a nonhealing posterior first portion duodenum ulcer associated with stricture just distal. After endoscopy after bleeding here in the hospital she had free air, which necessitated operation by me which involved antrectomy and loop gastrojejunostomy, Billroth II. 2. Duodenal stump leak. The patient's postop course was complicated by duodenal stump leak. This was treated with drainage, total parenteral nutrition and it has mostly resolved. Her original Jomar-Sanon drain has been removed, but with a small recurring fluid collection near the duodenal stump. A percutaneous drain was replaced. 3. The patient has a fluid collection over her liver. This has already been attempted to be percutaneously drained once, however, it is hematoma from her operation. It should resolve on its own. 4. The patient is status post right decortication for loculated pleural effusion. 5. Chronic deconditioning. 6. Chronic pain. The patient has a history of Belbuca taking at home at high doses and significant chronic anxiety and pain issues. PLAN: The patient's medical issues have improved considerably. Her chest tubes are out for her decortication. Her biliary stump leak is almost resolved. Her liver function tests were normal last time they were checked. Her midline wound is healed. She is tolerating tube feeds with a Dobhoff into her efferent limb. I have allowed her some liquid diet, which she is tolerating without difficulty. She needs to be transferred to the floor. Aggressive physical therapy, occupational therapy in my absence next week. Options for rehab at a different hospital, limited by her lack of insurance. Dr. Brito to cover for me in the next week while I am gone. Job ID: [id number]
[2019-02-03] MEDS: Gabapentin 300 MG CAP PO SCH ×3 (09:13→20:04)
[2019-02-03] MEDS: Magnesium Oxide 400 MG TAB PO SCH ×2 (09:13→20:04)
[2019-02-03] MEDS: Ferrous Sulfate 325 MG TAB PO SCH ×2 (09:13→17:06)
[2019-02-03] MEDS: Amlodipine 10 MG TAB PO SCH (09:14)
[2019-02-03] MEDS: K-Phos Neutral 250 MG TAB PO SCH ×3 (09:14→17:07)
[2019-02-03] MEDS: Pantoprazole 40 MG VIAL IVP SCH (09:15)
--- NOTE | 2019-02-03 13:43 | PDOC.PN ---
- Subjective Encounter Start Date: 02/03/19 Encounter Start Time: 13:41 Subjective: Admitted with recurrent GI bleed. Had EGD showing duodenal stricture /ulcer -: Developed perforation and later had antrectomy and gastrojejunal anastomis -: Post operative course was complicated by pancreatitis, abdominal collection - Objective Resuscitation Status - Order Detail: 12/24/18 21:39 Resuscitation Status Routine Resuscitation Status: FULL: Full Resuscitation Vital Signs & Weight: Vital Signs (12 hours) Temp Pulse Pulse Pulse Resp BP BP 02/03/19 13:23 101 H 21 H 02/03/19 12:00 97.8 F 02/03/19 11:20 102 H 106 H 154/93 H 02/03/19 09:34 112 H 156/75 H 02/03/19 09:14 112 H 174/90 H 02/03/19 09:09 174/90 H 02/03/19 08:00 02/03/19 07:50 103 H 21 H 02/03/19 07:48 98.8 F 02/03/19 04:00 99.1 F BP Pulse Ox Pulse Ox Pulse Ox 02/03/19 13:23 99 02/03/19 12:00 02/03/19 11:20 145/81 H 94 L 92 L 02/03/19 09:34 155/101 H 02/03/19 09:14 02/03/19 09:09 02/03/19 08:00 100 02/03/19 07:50 91 L 02/03/19 07:48 02/03/19 04:00 Weight Admit Weight 125 lb 3.2 oz Weight 133 lb 6.075 oz Most Recent Monitor Data Heart Rate from ECG 104 NIBP 119/95 NIBP BP-Mean 103 Respiration from ECG 22 SpO2 93 I&O: 02/02/19 02/03/19 02/04/19 06:59 06:59 06:59 Intake Total 1956 3970 90 Output Total 1974 3940 Balance -18 30 90 Result Diagrams: 01/28/19 04:05 02/03/19 06:22 Additional Labs: Accuchecks 02/03/19 02/03/19 02/02/19 10:30 06:07 19:59 POC Glucose 174 H 108 121 H 02/02/19 16:37 POC Glucose 150 H Phys Exam - Physical Examination Constitutional: NAD HEENT: PERRLA, moist MMs Neck: supple Respiratory: no wheezing fair air entry bilaterally Cardiovascular: RRR tachycardic Gastrointestinal: soft, no distention, positive bowel sounds Right flank abdominal drain noted Musculoskeletal: no edema, pulses present Left arm PICC line noted Neurological: non-focal, moves all 4 limbs Psychiatric: normal affect, A&O x 3 Dx/Plan (1) Abdominal abscess Code(s): [id number] - Status: Acute Comment: S/P drain. Repeat CT 01/17 with no change in the size of the fluid collection. Drain still well positioned. (2) Abnormal LFTs Code(s): R94.5 - ABNORMAL RESULTS OF LIVER FUNCTION STUDIES Status: Acute Comment: due to billiary obstruction from periampullary swelling (3) Acute respiratory failure with hypoxia Code(s): J96.01 - ACUTE RESPIRATORY FAILURE WITH HYPOXIA Status: Acute Comment: Extubated 01/30/19, serial PCXR, remains on RA (4) Anemia due to acute blood loss Code(s): D62 - ACUTE POSTHEMORRHAGIC ANEMIA Status: Acute Comment: s/p total 7 unit PRBC, H/H stable currently (5) Atelectasis of left lung Code(s): J98.11 - ATELECTASIS Status: Acute (6) Duodenal ulcer, perforated Code(s): K26.5 - CHRONIC OR UNSPECIFIED DUODENAL ULCER WITH PERFORATION Status : Acute Comment: s/p antrectomy, with duodenal stump leak postop, Dr. Morgan following, CT with persistent leak 01/10/19, CT guided percutaneous drain placement 01/11/19, TPN d/c'd, Glucerna 1.2 with goal rate 40ml/h, Prostat, tolerating clear liquids (7) Empyema lung Code(s): J86.9 - PYOTHORAX WITHOUT FISTULA Status: Acute Comment: s/p thoracotomy with decortication and chest tube, monitor for clinical improvement , CT removed 02/01/19 (8) Hypokalemia Code(s): E87.6 - HYPOKALEMIA Status: Acute Comment: KCL replacement, serial K+ monitoring, concomitant Mg++ replacement (9) Hypomagnesemia Code(s): E83.42 - HYPOMAGNESEMIA Status: Acute Comment: Magnesium 4gm IV, Mag Oxide 400mg BID (10) S/P bypass gastrojejunostomy Code(s): Z98.0 - INTESTINAL BYPASS AND ANASTOMOSIS STATUS Status: Acute Comment: s/p re exploration of abdomen and wash out 12/29/18 (11) Diabetes type 2, controlled Code(s): E11.9 - TYPE 2 DIABETES MELLITUS WITHOUT COMPLICATIONS Status: Chronic Qualifiers: Diabetes mellitus ad terminal makeup operator insulin use: with ad terminal makeup operator use Comment: ISS, decrease Lantus, ADA when tolerating po intake (12) Hypophosphatemia Code(s): E83.39 - OTHER DISORDERS OF PHOSPHORUS METABOLISM Status: Resolved (13) Pneumonia Code(s): J18.9 - PNEUMONIA, UNSPECIFIED ORGANISM Status: Resolved Qualifiers: Pneumonia type: due to methicillin-resistant Staphylococcus aureus (MRSA) Comment: including tracheobronchitis, finished course of Linezolid and Zosyn (14) Upper GI bleed Code(s): K92.2 - GASTROINTESTINAL HEMORRHAGE, UNSPECIFIED Status: Resolved - Plan Repeat serum magnesium and potassium. Follow labs and correct as needed. -: Continue nutritional and physical rehabilitation. -: Continue other supportive care. * .
[2019-02-03] MEDS ORDERED: Magnesium Sulfate 4 GM in Sodium Chloride 0.9% 250 ML 250 ML IVPB SCH (13:45)
[2019-02-03 14:57] VITALS: BMI 32.1
[2019-02-03] MEDS: Enoxaparin Sodium 40 MG/0.4 ML SYRINGE SC SCH (20:05)
[2019-02-03] MEDS: Vancomycin HCl 1 GM in Premix Bag 1 BAG IVPB SCH (21:05)
[2019-02-03] MEDS: Zolpidem Tartrate 5 MG TAB PO PRN (21:24)
[2019-02-04] MEDS: Labetalol HCl 100 MG/20 ML VIAL SLOW IVP PRN (04:11)
[2019-02-04 06:23] LABS: ALT (SGPT) 44 U/L (8-55); AST (SGOT) 25 U/L (5-34); Albumin 2.4 g/dL (3.4-4.8); Alkaline Phosphatase 136 U/L (40-150); Anion Gap 12 mmol/L (10-20); BUN (Urea Nitrogen) 14 mg/dL (9.8-20.1); Bilirubin, Total 0.4 mg/dL (0.2-1.2); Calc. Creatinine Clearance 80 mL/min (70-130); Carbon Dioxide 30 mmol/L (23-31); Chloride 94 mmol/L (98-107); Estimated GFR-MDRD 86; Globulin 3.9 g/dL (2.4-3.5); Glucose 128 mg/dL (80-115); Magnesium 1.8 mg/dL (1.6-2.6); Protein, Total 6.3 g/dL (6.0-8.3); Sodium 133 mmol/L (136-145)
[2019-02-04 06:25] LABS: Potassium 2.8 mmol/L (3.5-5.1)
[2019-02-04 06:48] LABS: #Eosinphils 0.1 thou/uL (0.0-0.7); #Monocytes 0.6 thou/uL (0.11-0.59); #Neutrophils 9.5 thou/uL (1.40-6.50); %Basophils 0.4 % (0.0-1.0); %Eosinophils 0.5 % (0.0-10.0); %Lymphocytes 16.3 % (21.0-51.0); %Monocytes 4.7 % (0.0-10.0); %Neutrophils 78.1 % (42.0-75.0); Hemoglobin 9.6 g/dL (12.0-16.0); Mean Corpuscular HGB CONC 32.1 g/dL (32.0-36.0); Mean Corpuscular Hemoglobin 28.8 pg (27.0-31.0); Mean Corpuscular Volume 89.7 fL (78.0-98.0); Mean Platelet Volume 7.7 fL (7.4-10.4); Platelet Count 418 thou/uL (130-400); Red Blood Cell (RBC) Count 3.32 mill/uL (4.20-5.40); White Blood Cell (WBC) Count 12.1 thou/uL (4.8-10.8)
[2019-02-04] MEDS: Arformoterol 15 MCG/2 ML NEB NEB SCH ×2 (07:08→18:33)
[2019-02-04] MEDS: Budesonide 0.5 MG/2 ML NEB INH SCH ×2 (07:08→18:32)
[2019-02-04] MEDS: Saccharomyces boulardii 250 MG CAP PO SCH (08:53)
[2019-02-04] MEDS: Insulin Glargine 5 UNITS in Pre-Filled Syringe SC SCH (08:53)
[2019-02-04] MEDS: Ferrous Sulfate 325 MG TAB PO SCH ×2 (08:53→16:43)
[2019-02-04] MEDS: Pantoprazole 40 MG VIAL IVP SCH (08:53)
[2019-02-04] MEDS: Amlodipine 10 MG TAB PO SCH (08:54)
[2019-02-04] MEDS: Gabapentin 300 MG CAP PO SCH ×3 (08:55→21:43)
[2019-02-04] MEDS: cloNIDine 0.2 MG TAB PO SCH ×2 (08:56→21:43)
[2019-02-04] MEDS: Magnesium Oxide 400 MG TAB PO SCH ×2 (10:37→21:44)
[2019-02-04] MEDS ORDERED: Potassium Phosphate 30 MMOL, Magnesium Sulfate 3 GM in Sodium Chloride 0.9% 250 ML 250 ML IVPB SCH (11:00)
[2019-02-04] MEDS ORDERED: Magnesium Sulfate 3 GM in Sodium Chloride 0.9% 100 ML IVPB SCH (11:00)
[2019-02-04] MEDS: K-Phos Neutral 250 MG TAB PO SCH ×3 (11:34→15:36)
[2019-02-04] MEDS: Pot Chloride/Pot Bicarb/Cit Ac 25 mEq Effervescent Tablet PO SCH ×2 (11:38→21:45)
--- NOTE | 2019-02-04 11:40 | PRG ---
DATE OF SERVICE: 02/04/2019 SUBJECTIVE: This morning, she is much better. OBJECTIVE: VITAL SIGNS: Saturations are 98 on room air, blood pressure 180/80, pulse 101, temperature 99, respiratory rate 18. CHEST: No wheezing. CARDIAC: Normal S1 and S2. No gallops. ABDOMEN: No masses. LABORATORY DATA: Unremarkable. Potassium 2.8. IMPRESSION: 1. Status post prolonged hospitalization following lap for bleeding ulcer. 2. Status post decortication. 3. Severe deconditioning, chronic pain, methicillin-resistant Staphylococcus aureus abscess. Pulmonary mauricio, meropenem was discontinued, vancomycin for abdominal infection. Discontinue lab. PT and eventually placement. Job ID: [id number]
--- NOTE | 2019-02-04 12:00 | RAD ---
PORTABLE CHEST: Date: 02/04/19 HISTORY: Post thoracotomy. COMPARISON: Prior day's exam. FINDINGS: Heart size appears slightly enlarged. Bibasilar lung changes are similar to the prior exam. Left-side d PICC line and feeding tube are unchanged in position. IMPRESSION: Stable exam. POS: [facility]
--- NOTE | 2019-02-04 12:45 | PDOC.PN ---
- Subjective Encounter Start Date: 02/04/19 Encounter Start Time: 12:44 Subjective: complaining of right lateral chest and flank pain. -: No fever - Objective Resuscitation Status - Order Detail: 12/24/18 21:39 Resuscitation Status Routine Resuscitation Status: FULL: Full Resuscitation Vital Signs & Weight: Vital Signs (12 hours) Temp Pulse Resp BP BP BP Pulse Ox 02/04/19 11:44 98.1 F 93 18 146/71 H 98 02/04/19 08:56 180/81 H 02/04/19 08:54 101 H 180/81 H 02/04/19 07:49 99.3 F 103 H 16 180/81 H 91 L 02/04/19 07:08 87 16 02/04/19 05:38 168/70 H 02/04/19 04:58 96 02/04/19 04:11 104 H 190/87 H 02/04/19 04:00 98.2 F 108 H 20 190/87 H 94 L Weight Admit Weight 125 lb 3.2 oz Weight 133 lb 6.075 oz Most Recent Monitor Data Heart Rate from ECG 121 NIBP 168/79 NIBP BP-Mean 108 Respiration from ECG 23 SpO2 88 I&O: 02/03/19 02/04/19 02/05/19 06:59 06:59 06:59 Intake Total 3970 3300 Output Total 3940 4555 Balance 30 -1255 Result Diagrams: 02/04/19 06:24 02/04/19 05:30 Additional Labs: Accuchecks 02/04/19 02/04/19 02/03/19 11:49 04:06 16:06 POC Glucose 160 H 130 H 124 H Phys Exam - Physical Examination Constitutional: NAD HEENT: moist MMs NG tubne in place Neck: no JVD, supple Respiratory: no rhonchi fair air entry bilaterally Cardiovascular: RRR Gastrointestinal: soft, non-tender, no distention, positive bowel sounds Musculoskeletal: no edema, pulses present Neurological: non-focal, moves all 4 limbs Psychiatric: A&O x 3 Dx/Plan (1) Abdominal abscess Code(s): [id number] - Status: Acute Comment: S/P drain. Repeat CT 01/17 with no change in the size of the fluid collection. Drain still well positioned. (2) Abnormal LFTs Code(s): R94.5 - ABNORMAL RESULTS OF LIVER FUNCTION STUDIES Status: Acute Comment: due to billiary obstruction from periampullary swelling (3) Acute respiratory failure with hypoxia Code(s): J96.01 - ACUTE RESPIRATORY FAILURE WITH HYPOXIA Status: Acute Comment: Extubated 01/30/19, serial PCXR, remains on RA (4) Anemia due to acute blood loss Code(s): D62 - ACUTE POSTHEMORRHAGIC ANEMIA Status: Acute Comment: s/p total 7 unit PRBC, H/H stable currently (5) Atelectasis of left lung Code(s): J98.11 - ATELECTASIS Status: Acute (6) Duodenal ulcer, perforated Code(s): K26.5 - CHRONIC OR UNSPECIFIED DUODENAL ULCER WITH PERFORATION Status : Acute Comment: s/p antrectomy, with duodenal stump leak postop, Dr. Morgan following, CT with persistent leak 01/10/19, CT guided percutaneous drain placement 01/11/19, TPN d/c'd, Glucerna 1.2 with goal rate 40ml/h, Prostat, tolerating clear liquids (7) Empyema lung Code(s): J86.9 - PYOTHORAX WITHOUT FISTULA Status: Acute Comment: s/p thoracotomy with decortication and chest tube, monitor for clinical improvement , CT removed 02/01/19 (8) Hypokalemia Code(s): E87.6 - HYPOKALEMIA Status: Acute Comment: KCL replacement, serial K+ monitoring, concomitant Mg++ replacement (9) Hypomagnesemia Code(s): E83.42 - HYPOMAGNESEMIA Status: Acute Comment: Magnesium 4gm IV, Mag Oxide 400mg BID (10) S/P bypass gastrojejunostomy Code(s): Z98.0 - INTESTINAL BYPASS AND ANASTOMOSIS STATUS Status: Acute Comment: s/p re exploration of abdomen and wash out 12/29/18 (11) Diabetes type 2, controlled Code(s): E11.9 - TYPE 2 DIABETES MELLITUS WITHOUT COMPLICATIONS Status: Chronic Qualifiers: Diabetes mellitus terminologist insulin use: with terminologist use Comment: ISS, decrease Lantus, ADA when tolerating po intake (12) Hypophosphatemia Code(s): E83.39 - OTHER DISORDERS OF PHOSPHORUS METABOLISM Status: Resolved (13) Pneumonia Code(s): J18.9 - PNEUMONIA, UNSPECIFIED ORGANISM Status: Resolved Qualifiers: Pneumonia type: due to methicillin-resistant Staphylococcus aureus (MRSA) Comment: including tracheobronchitis, finished course of Linezolid and Zosyn (14) Upper GI bleed Code(s): K92.2 - GASTROINTESTINAL HEMORRHAGE, UNSPECIFIED Status: Resolved - Plan Replete serum potassium with potassium chloride. -: Start oral analgesic as needed. -: Continue other treatments -: increase activity -: Follow electrolytes * .
[2019-02-04] MEDS: Insulin Regular 300 UNITS/3 ML VIAL SC PRN (12:54)
[2019-02-04] MEDS: traMADol HCl 50 MG TAB PO PRN (13:27)
--- NOTE | 2019-02-04 20:20 | PDOC.EVN ---
Event Note - Event Note Event Note: Notified by RN, patient with persistent diarrhea for several days. Stool cultures done as well as C.diff. All unremarkable. Loperamide ordered.
[2019-02-04] MEDS: Enoxaparin Sodium 40 MG/0.4 ML SYRINGE SC SCH (21:43)
[2019-02-04] MEDS: Zolpidem Tartrate 5 MG TAB PO PRN (21:43)
[2019-02-04] MEDS: Loperamide HCl 2 MG CAP PO PRN (21:43)
[2019-02-04] MEDS: diphenhydrAMINE 50 MG/ML VIAL IVP PRN (21:44)
[2019-02-04 21:45] LABS: Vancomycin, Trough 15.6 ug/mL
[2019-02-04] MEDS: Vancomycin HCl 1 GM in Premix Bag 1 BAG IVPB SCH ×2 (21:45→22:03)
[2019-02-05] MEDS: Loperamide HCl 2 MG CAP PO PRN ×2 (06:26→11:48)
[2019-02-05] MEDS: Arformoterol 15 MCG/2 ML NEB NEB SCH ×2 (07:20→19:24)
[2019-02-05] MEDS: Budesonide 0.5 MG/2 ML NEB INH SCH ×2 (07:20→19:25)
[2019-02-05] MEDS: Ferrous Sulfate 325 MG TAB PO SCH ×2 (09:39→17:16)
[2019-02-05] MEDS: Amlodipine 10 MG TAB PO SCH (09:39)
[2019-02-05] MEDS: Gabapentin 300 MG CAP PO SCH ×3 (09:39→21:50)
[2019-02-05] MEDS: Magnesium Oxide 400 MG TAB PO SCH ×2 (09:39→21:49)
[2019-02-05] MEDS: K-Phos Neutral 250 MG TAB PO SCH ×3 (09:39→17:16)
[2019-02-05] MEDS: cloNIDine 0.2 MG TAB PO SCH ×2 (09:39→21:48)
[2019-02-05] MEDS: Saccharomyces boulardii 250 MG CAP PO SCH (09:40)
[2019-02-05] MEDS: Insulin Glargine 5 UNITS in Pre-Filled Syringe SC SCH (09:40)
[2019-02-05] MEDS: Pot Chloride/Pot Bicarb/Cit Ac 25 mEq Effervescent Tablet PO SCH ×2 (09:40→22:01)
[2019-02-05] MEDS: Pantoprazole 40 MG VIAL IVP SCH (09:41)
[2019-02-05 09:48] LABS: Anion Gap 12 mmol/L (10-20); BUN (Urea Nitrogen) 15 mg/dL (9.8-20.1); Calc. Creatinine Clearance 74 mL/min (70-130); Calcium 8.7 mg/dL (7.8-10.44); Carbon Dioxide 29 mmol/L (23-31); Chloride 98 mmol/L (98-107); Estimated GFR-MDRD 79; Glucose 178 mg/dL (80-115); Magnesium 1.7 mg/dL (1.6-2.6); Potassium 4.8 mmol/L (3.5-5.1); Sodium 134 mmol/L (136-145)
--- NOTE | 2019-02-05 10:15 | PDOC.PN ---
- Subjective Encounter Start Date: 02/05/19 Encounter Start Time: 10:14 Subjective: No new problem -: Afebrile. -: loose stool is better with loperamide - Objective Resuscitation Status - Order Detail: 12/24/18 21:39 Resuscitation Status Routine Resuscitation Status: FULL: Full Resuscitation Vital Signs & Weight: Vital Signs (12 hours) Temp Pulse Resp BP BP Pulse Ox 02/05/19 09:55 97 02/05/19 08:00 99.0 F 104 H 20 148/77 H 96 02/05/19 07:20 69 24 H 02/05/19 04:00 98.5 F 97 21 H 168/90 H 97 02/05/19 00:00 98.2 F 90 18 155/79 H 95 Weight Admit Weight 125 lb 3.2 oz Weight 133 lb 6.075 oz Most Recent Monitor Data Heart Rate from ECG 121 NIBP 168/79 NIBP BP-Mean 108 Respiration from ECG 23 SpO2 88 I&O: 02/04/19 02/05/19 02/06/19 06:59 06:59 06:59 Intake Total 3300 1980 Output Total 4555 2350 Balance -1255 -370 Result Diagrams: 02/04/19 06:24 02/05/19 09:05 Additional Labs: Accuchecks 02/05/19 02/04/19 02/04/19 05:10 20:39 16:42 POC Glucose 141 H 160 H 126 H 02/04/19 02/03/19 11:49 19:47 POC Glucose 160 H 140 H Phys Exam - Physical Examination Constitutional: NAD fatigued HEENT: PERRLA, moist MMs NG tube in place Neck: no JVD, supple fair air entry bilaterally. decreased right base with some transmitted soun Cardiovascular: RRR, no significant murmur Gastrointestinal: soft, non-tender, no distention, positive bowel sounds Right flank drain noted Musculoskeletal: no edema Neurological: non-focal, moves all 4 limbs Psychiatric: normal affect, A&O x 3 Dx/Plan (1) Abdominal abscess Code(s): [id number] - Status: Acute Comment: S/P drain. Repeat CT 01/17 with no change in the size of the fluid collection. Drain still well positioned. Initial culture grew MRSA. Repeat grew MRSA and klebsiella pneumonia (2) Abnormal LFTs Code(s): R94.5 - ABNORMAL RESULTS OF LIVER FUNCTION STUDIES Status: Acute Comment: due to billiary obstruction from periampullary swelling (3) Acute respiratory failure with hypoxia Code(s): J96.01 - ACUTE RESPIRATORY FAILURE WITH HYPOXIA Status: Acute Comment: Extubated 01/30/19, serial PCXR, remains on RA (4) Anemia due to acute blood loss Code(s): D62 - ACUTE POSTHEMORRHAGIC ANEMIA Status: Acute Comment: s/p total 7 unit PRBC, H/H stable currently (5) Atelectasis of left lung Code(s): J98.11 - ATELECTASIS Status: Acute (6) Duodenal ulcer, perforated Code(s): K26.5 - CHRONIC OR UNSPECIFIED DUODENAL ULCER WITH PERFORATION Status : Acute Comment: s/p antrectomy, with duodenal stump leak postop, Dr. Morgan following, CT with persistent leak 01/10/19, CT guided percutaneous drain placement 01/11/19, TPN d/c'd, Glucerna 1.2 with goal rate 40ml/h, Prostat, tolerating clear liquids (7) Empyema lung Code(s): J86.9 - PYOTHORAX WITHOUT FISTULA Status: Acute Comment: s/p thoracotomy with decortication and chest tube, monitor for clinical improvement , CT removed 02/01/19 (8) Hypokalemia Code(s): E87.6 - HYPOKALEMIA Status: Acute Comment: KCL replacement, serial K+ monitoring, concomitant Mg++ replacement (9) Hypomagnesemia Code(s): E83.42 - HYPOMAGNESEMIA Status: Acute Comment: Continue Mag Oxide 400mg BID (10) S/P bypass gastrojejunostomy Code(s): Z98.0 - INTESTINAL BYPASS AND ANASTOMOSIS STATUS Status: Acute Comment: s/p re exploration of abdomen and wash out 12/29/18 (11) Diabetes type 2, controlled Code(s): E11.9 - TYPE 2 DIABETES MELLITUS WITHOUT COMPLICATIONS Status: Chronic Qualifiers: Diabetes mellitus penitentiary insulin use: with penitentiary use Comment: ISS, decrease Lantus, ADA when tolerating po intake (12) Hypophosphatemia Code(s): E83.39 - OTHER DISORDERS OF PHOSPHORUS METABOLISM Status: Resolved (13) Pneumonia Code(s): J18.9 - PNEUMONIA, UNSPECIFIED ORGANISM Status: Resolved Qualifiers: Pneumonia type: due to methicillin-resistant Staphylococcus aureus (MRSA) Comment: including tracheobronchitis, finished course of Linezolid and Zosyn (14) Upper GI bleed Code(s): K92.2 - GASTROINTESTINAL HEMORRHAGE, UNSPECIFIED Status: Resolved - Plan Add cefdinir to vancomycin -: start incentive spirometry -: Wean off oxygen -: Increase activity. -: Monitor electrolytes and replete as needed. * .
[2019-02-05] MEDS ORDERED: Cefdinir 300 MG CAP PO SCH (10:30)
--- NOTE | 2019-02-05 11:27 | PRG ---
DATE OF SERVICE: 02/05/2019 SUBJECTIVE: This morning, she is doing well. No shortness of breath. OBJECTIVE: VITAL SIGNS: Saturations are 97% on 2 L, pulse 104, temperature 99, blood pressure 148/75. She still has a drain in abdomen. Lytes are normal. CHEST: No wheezing or crackles. CARDIAC: Normal S1 and S2. No gallops. ABDOMEN: No masses. IMPRESSION: Status post decortication, methicillin-resistant Staphylococcus aureus in the abdominal abscess. PLAN: Pulmonary mauricio, disposition as per Surgery. We will follow. Job ID: [id number]
[2019-02-05] MEDS: fentaNYL 50 mcg/hour Patch TD SCH (12:06)
[2019-02-05] MEDS: traMADol HCl 50 MG TAB PO PRN (15:40)
[2019-02-05] MEDS: Cefdinir 300 MG CAP PO SCH (21:47)
[2019-02-05] MEDS: Enoxaparin Sodium 40 MG/0.4 ML SYRINGE SC SCH (21:51)
[2019-02-05] MEDS ORDERED: Vancomycin HCl 1 GM in Premix Bag 1 BAG IVPB SCH (22:00)
[2019-02-05] MEDS: Zolpidem Tartrate 5 MG TAB PO PRN (22:03)
[2019-02-06] MEDS: traMADol HCl 50 MG TAB PO PRN ×2 (03:36→13:46)
[2019-02-06 05:27] LABS: #Eosinphils 0.1 thou/uL (0.0-0.7); #Lymphocytes 2.6 thou/uL (1.20-3.40); #Monocytes 0.7 thou/uL (0.11-0.59); #Neutrophils 6.6 thou/uL (1.40-6.50); %Basophils 0.5 % (0.0-1.0); %Eosinophils 0.8 % (0.0-10.0); %Lymphocytes 26.2 % (21.0-51.0); %Monocytes 7.3 % (0.0-10.0); %Neutrophils 65.3 % (42.0-75.0); Hemoglobin 9.8 g/dL (12.0-16.0); Mean Corpuscular HGB CONC 31.9 g/dL (32.0-36.0); Mean Corpuscular Hemoglobin 28.5 pg (27.0-31.0); Mean Corpuscular Volume 89.1 fL (78.0-98.0); Mean Platelet Volume 7.9 fL (7.4-10.4); Platelet Count 462 thou/uL (130-400); RBC Distribution Width 14.1 % (11.5-14.5); Red Blood Cell (RBC) Count 3.43 mill/uL (4.20-5.40); White Blood Cell (WBC) Count 10.1 thou/uL (4.8-10.8)
[2019-02-06 05:44] LABS: Anion Gap 12 mmol/L (10-20); BUN (Urea Nitrogen) 15 mg/dL (9.8-20.1); Calc. Creatinine Clearance 71 mL/min (70-130); Carbon Dioxide 30 mmol/L (23-31); Chloride 96 mmol/L (98-107); Estimated GFR-MDRD 75; Glucose 146 mg/dL (80-115); Magnesium 1.3 mg/dL (1.6-2.6); Potassium 4.8 mmol/L (3.5-5.1); Sodium 133 mmol/L (136-145)
[2019-02-06] MEDS: Budesonide 0.5 MG/2 ML NEB INH SCH ×2 (06:26→18:12)
[2019-02-06] MEDS: Arformoterol 15 MCG/2 ML NEB NEB SCH ×2 (06:28→18:13)
[2019-02-06] MEDS: diphenhydrAMINE 50 MG/ML VIAL IVP PRN ×2 (08:17→18:05)
[2019-02-06] MEDS: Pantoprazole 40 MG VIAL IVP SCH (08:31)
[2019-02-06] MEDS: Cefdinir 300 MG CAP PO SCH (08:32)
[2019-02-06] MEDS: cloNIDine 0.2 MG TAB PO SCH ×2 (08:32→20:52)
[2019-02-06] MEDS: Ferrous Sulfate 325 MG TAB PO SCH ×2 (08:33→18:02)
[2019-02-06] MEDS: Amlodipine 10 MG TAB PO SCH (08:33)
[2019-02-06] MEDS: Magnesium Oxide 400 MG TAB PO SCH ×2 (08:33→20:53)
[2019-02-06] MEDS: Saccharomyces boulardii 250 MG CAP PO SCH (08:33)
[2019-02-06] MEDS: Insulin Glargine 5 UNITS in Pre-Filled Syringe SC SCH (08:34)
[2019-02-06] MEDS: Pot Chloride/Pot Bicarb/Cit Ac 25 mEq Effervescent Tablet PO SCH ×2 (08:36→21:39)
[2019-02-06] MEDS: K-Phos Neutral 250 MG TAB PO SCH ×3 (08:37→18:02)
--- NOTE | 2019-02-06 09:21 | PRG ---
DATE OF SERVICE: 02/06/2019 SUBJECTIVE: This morning, she is awake, alert, and responsive. OBJECTIVE: VITAL SIGNS: Blood pressure is 175/85, temperature 98, saturations are 92% on room air, respiratory rate 18, temperature 98. CHEST: No wheezing or crackles. CARDIAC: Normal S1 and S2. No gallops. ABDOMEN: No masses. LABORATORY DATA: White count 10,000. Lytes are normal. Sodium 133. IMPRESSION: 1. Status post laparoscopy for bleeding ulcer. 2. Decortication. 3. Dysphagia. 4. Asthma. 5. Respiratory failure. PLAN: She needs no further antibiotics pulmonary mauricio. From the lung standpoint of view, I would discontinue the Omnicef. The vancomycin is for MRSA in the abdomen. She still got a drain in it. More than likely, it is unclear at this stage whether she would still need the antibiotics, read up to General Surgery to see what she needs it. Discontinue O2. Continue neb treatments and supportive care. Disposition as per Surgery. Pulmonary will follow at a distance. Call if needed. Job ID: [id number]
--- NOTE | 2019-02-06 10:38 | PDOC.PN ---
- Subjective Encounter Start Date: 02/06/19 Encounter Start Time: 10:37 Patient seen and examined, family at bedside, no new issues. - Objective Resuscitation Status - Order Detail: 12/24/18 21:39 Resuscitation Status Routine Resuscitation Status: FULL: Full Resuscitation Vital Signs & Weight: Vital Signs (12 hours) Temp Pulse Resp BP BP Pulse Ox 02/06/19 08:33 113 H 02/06/19 08:32 175/85 H 02/06/19 08:13 98.6 F 71 16 175/85 H 92 L 02/06/19 06:26 104 H 16 92 L 02/06/19 04:00 98.3 F 101 H 16 166/78 H 92 L 02/06/19 00:00 98.2 F 95 16 123/73 94 L Weight Admit Weight 125 lb 3.2 oz Weight 133 lb 6.075 oz Most Recent Monitor Data Heart Rate from ECG 121 NIBP 168/79 NIBP BP-Mean 108 Respiration from ECG 23 SpO2 88 I&O: 02/05/19 02/06/19 02/07/19 06:59 06:59 06:59 Intake Total 1980 90 Output Total 2350 710 Balance -370 -620 Result Diagrams: 02/06/19 04:41 02/06/19 04:41 Additional Labs: Accuchecks 02/06/19 02/05/19 02/05/19 04:26 21:19 16:18 POC Glucose 144 H 149 H 125 H 02/05/19 11:59 POC Glucose 172 H Phys Exam - Physical Examination Constitutional: NAD HEENT: PERRLA, moist MMs +NG tube Neck: no nodes Respiratory: no wheezing, no rales, no rhonchi Cardiovascular: RRR, no significant murmur, no rub Gastrointestinal: soft, non-tender, no distention, positive bowel sounds Musculoskeletal: pulses present, edema present (trace) Dx/Plan (1) Anemia due to acute blood loss Code(s): D62 - ACUTE POSTHEMORRHAGIC ANEMIA Status: Acute Comment: s/p total 7 unit PRBC, H/H stable currently (2) Hypertensive urgency Code(s): I16.0 - HYPERTENSIVE URGENCY Status: Resolved Comment: improved (3) Transaminitis Code(s): R74.0 - NONSPEC ELEV OF LEVELS OF TRANSAMNS & LACTIC ACID DEHYDRGNSE Status: Acute (4) Diabetes type 2, controlled Code(s): E11.9 - TYPE 2 DIABETES MELLITUS WITHOUT COMPLICATIONS Status: Chronic Qualifiers: Diabetes mellitus termite control representative insulin use: with residential use Comment: ISS, decrease Lantus, ADA when tolerating po intake (5) Dyslipidemia Code(s): E78.5 - HYPERLIPIDEMIA, UNSPECIFIED Status: Chronic (6) HTN (hypertension) Code(s): I10 - ESSENTIAL (PRIMARY) HYPERTENSION Status: Chronic Qualifiers: Hypertension type: essential hypertension Comment: labile control (7) Neuropathic pain Status: Chronic (8) Obesity (BMI 30.0-34.9) Code(s): E66.9 - OBESITY, UNSPECIFIED Status: Chronic - Plan * pending placement * cont current plan of care * DC once arrangements made
[2019-02-06] MEDS: Gabapentin 300 MG CAP PO SCH (11:42)
[2019-02-06] MEDS: Gabapentin 100 MG CAP PO SCH ×2 (13:04→21:00)
--- NOTE | 2019-02-06 13:58 | PRG ---
DATE OF SERVICE: 02/05/2019 SUBJECTIVE: This is a 63 years old female with prolong hospitalization started by duodenal perforation / esophagogastroduodenoscopy for chronic duodenal bleeding . The explains she is doing better today. Nausea and vomiting, none. Pain, none. Fever, none. OBJECTIVE: VITAL SIGNS: Current temperature 98, current heart rate 113, current blood pressure 140/80, current respiratory rate 18, current O2 sat 98% on room air, Ins 90 and outs 710, PHYSICAL EXAMINATION: GENERAL: HEENT: Normocephalic, atraumatic. CARDIOVASCULAR: Regular rate and rhythm. Clear S1/S2 heard. RESPIRATORY: No respiratory distress. LUNGS: Clear to auscultation bilaterally. ABDOMEN: Soft. Nontender. Nondistended. midline incision heal well EXTREMITIES: Warm and well perfused. NEURO: Intact neurological. LABORATORY DATA: Na 13 K , 4.8 Creatinine 0.78 IMAGING RESULTS: No new imaging to be reviewed. ASSESSMENT: The patient is a 63-year-old female with a past history of chronic duodenal bleeding who was admitted with GI bleeding , and prolong hospitalization due to deconditioning / duodenal perforation . Duodenal stump leak resolved MRSA abdominal drainage PLAN: Based upon the information above, the following should be done to advance the care of the patient that falls into various category. Pharmacological management intervention to be ordered/performed. Antibiotic for MRSA abdominal drainage Other management to be conducted. Working with PT/OT, spirometer incentive, DVT prophylaxis, gastritis prophylaxis . Job ID: [id number] [id number]
--- NOTE | 2019-02-06 16:44 | PRG ---
DATE OF SERVICE: 02/04/2019 SUBJECTIVE: The patient is doing better today. The patient is able to sit in the chair multiple times today. The patient reports no fever, no respiratory distress on room air. The patient is able to tolerate regular diet. No nausea or vomiting. Dr. Brito examined abdominal wound this morning. Wound VAC was moist with typical yellow-green drainage. Dr. Brito decided to remove the hannah to leave the wound open, ordered changing dressing and wound care b.i.d. Culture abdominal drainage MRSA OBJECTIVE: VITAL SIGNS: Saturation is 98 on room air, blood pressure 150/80, pulse 100, temperature 99, respiratory rate 15. CHEST: No wheezing. CARDIAC: Normal rate and rhythm. ABDOMEN: Vertical middle abdominal open wound, minimal drainage IMPRESSION: 1. Status post prolonged hospitalization started by duodenal perforation after for bleeding chronic duodenal ulcer after esophagogastroduodenoscopy for bleeding chronic duodenal ulcer, duodenal stump leaking. 2. The patient is status post right decortication for loculated pleural effusion , chronic deconditioning, chronic pain, open abdominal wound. PLAN: Continue pain control, wound care, supportive care with PT and OT. Continue antibiotic for MRSA treatment Isolated due to MRSA Job ID: [id number] [facility]
[2019-02-06] MEDS: Acetaminophen 325 MG TAB PO PRN (20:53)
[2019-02-06] MEDS: Enoxaparin Sodium 40 MG/0.4 ML SYRINGE SC SCH (20:56)
[2019-02-06] MEDS: Zolpidem Tartrate 5 MG TAB PO PRN (21:13)
--- NOTE | 2019-02-07 02:30 | PRG ---
DATE OF SERVICE: 02/07/2019 SUBJECTIVE: The patient remains on the medical floor. She is status post laparoscopy for upper GI bleed, specifically duodenal ulcer. The patient had hemorrhage afterwards and required several units of blood. She has been stable over the last few days. She had no issues overnight. She has been on a full liquid diet and has had bowel movements. OBJECTIVE: VITAL SIGNS: Temperature is 98.6, heart rate 71, blood pressure 175/85, respirations 16, oxygen saturation 92% on room air. GENERAL: The patient is resting comfortably in bed. She is awake, alert, responsive and appropriate. HEENT: Unremarkable. LUNGS: Clear to auscultation with good inspiratory and expiratory effort. HEART: Regular rate and rhythm. ABDOMEN: Soft, flat, nontender with a well-healed midline incision. EXTREMITIES: Neurovascularly intact x4. LABORATORY FINDINGS: WBC 10.1, hemoglobin 9.8, hematocrit 30.6, platelets 462. Sodium 133, potassium 4.8, chloride 96, CO2 of 30, BUN 15, creatinine 0.78, glucose 146, magnesium 1.3. ASSESSMENT AND PLAN: 1. Status post antrectomy, gastrojejunostomy, history of chronic bleeding duodenal ulcer. 2. History of blood loss anemia. PLAN: Plan will be to continue supportive care. Advance diet as tolerated. Begin working on discharge planning. Job ID: [id number]
[2019-02-07] MEDS: traMADol HCl 50 MG TAB PO PRN ×3 (05:05→21:27)
[2019-02-07] MEDS: Loperamide HCl 2 MG CAP PO PRN (06:21)
[2019-02-07] MEDS: Budesonide 0.5 MG/2 ML NEB INH SCH ×2 (06:41→18:30)
[2019-02-07] MEDS: Arformoterol 15 MCG/2 ML NEB NEB SCH ×2 (06:44→18:31)
[2019-02-07] MEDS: Amlodipine 10 MG TAB PO SCH (09:06)
[2019-02-07] MEDS: Ferrous Sulfate 325 MG TAB PO SCH ×2 (09:06→16:15)
[2019-02-07] MEDS: K-Phos Neutral 250 MG TAB PO SCH ×4 (09:06→18:16)
[2019-02-07] MEDS: cloNIDine 0.2 MG TAB PO SCH ×2 (09:06→21:09)
[2019-02-07] MEDS: Saccharomyces boulardii 250 MG CAP PO SCH (09:06)
[2019-02-07] MEDS: diphenhydrAMINE 50 MG/ML VIAL IVP PRN ×4 (09:07→21:31)
[2019-02-07] MEDS: Magnesium Oxide 400 MG TAB PO SCH ×2 (09:07→21:09)
[2019-02-07] MEDS: Gabapentin 300 MG CAP PO SCH ×3 (09:07→21:08)
[2019-02-07] MEDS: Pantoprazole 40 MG VIAL IVP SCH (09:08)
[2019-02-07] MEDS: Pot Chloride/Pot Bicarb/Cit Ac 25 mEq Effervescent Tablet PO SCH ×2 (09:09→21:09)
--- NOTE | 2019-02-07 09:21 | PRG ---
DATE OF SERVICE: 02/07/2019 SUBJECTIVE: This morning, the patient is awake, alert, responsive. All her antibiotics were discontinued yesterday. OBJECTIVE: VITAL SIGNS: Temperature 97, pulse 111, blood pressure 150/80. GENERAL:: No distress. CHEST: No wheezing or crackles. CARDIAC: Normal S1, S2. No gallops. ABDOMEN: No masses. IMPRESSION: 1. Asthma, baseline. 2. Right decortication. 3. Laparotomy. Disposition as per Surgery. Pulmonary will follow at a distance. Call, if needed. Job ID: [id number]
[2019-02-07] MEDS: Insulin Glargine 5 UNITS in Pre-Filled Syringe SC SCH (09:52)
--- NOTE | 2019-02-07 11:21 | PDOC.PN ---
- Subjective Encounter Start Date: 02/07/19 Encounter Start Time: 11:18 Patient seen and examined, no new issues. - Objective Resuscitation Status - Order Detail: 12/24/18 21:39 Resuscitation Status Routine Resuscitation Status: FULL: Full Resuscitation Vital Signs & Weight: Vital Signs (12 hours) Temp Pulse Resp BP BP BP Pulse Ox 02/07/19 09:06 111 H 151/80 H 02/07/19 09:00 92 L 02/07/19 07:15 97.6 F 111 H 16 151/80 H 92 L 02/07/19 06:44 97 02/07/19 06:41 111 H 20 97 02/07/19 04:00 98.6 F 95 20 120/76 96 02/07/19 00:00 98.2 F 95 20 130/82 96 Weight Admit Weight 125 lb 3.2 oz Weight 133 lb 6.075 oz Most Recent Monitor Data Heart Rate from ECG 121 NIBP 168/79 NIBP BP-Mean 108 Respiration from ECG 23 SpO2 88 I&O: 02/06/19 02/07/19 02/08/19 06:59 06:59 06:59 Intake Total 90 920 30 Output Total 710 980 Balance -620 -60 30 Result Diagrams: 02/06/19 04:41 02/06/19 04:41 Additional Labs: Accuchecks 02/07/19 02/07/19 02/06/19 10:39 04:21 20:42 POC Glucose 167 H 188 H 120 H 02/06/19 02/06/19 17:46 11:08 POC Glucose 121 H 137 H Phys Exam - Physical Examination Constitutional: NAD HEENT: PERRLA, moist MMs NG tube in place Neck: no nodes, no JVD, supple Respiratory: no wheezing, no rales, no rhonchi Cardiovascular: RRR, no significant murmur, no rub Gastrointestinal: soft, non-tender, no distention, positive bowel sounds Musculoskeletal: no edema, pulses present Dx/Plan (1) Anemia due to acute blood loss Code(s): D62 - ACUTE POSTHEMORRHAGIC ANEMIA Status: Acute Comment: s/p total 7 unit PRBC, H/H stable currently (2) Hypertensive urgency Code(s): I16.0 - HYPERTENSIVE URGENCY Status: Resolved Comment: improved (3) Transaminitis Code(s): R74.0 - NONSPEC ELEV OF LEVELS OF TRANSAMNS & LACTIC ACID DEHYDRGNSE Status: Acute (4) Diabetes type 2, controlled Code(s): E11.9 - TYPE 2 DIABETES MELLITUS WITHOUT COMPLICATIONS Status: Chronic Qualifiers: Diabetes mellitus internal corrosion specialist insulin use: with longterm use Comment: ISS, decrease Lantus, ADA when tolerating po intake (5) Dyslipidemia Code(s): E78.5 - HYPERLIPIDEMIA, UNSPECIFIED Status: Chronic (6) HTN (hypertension) Code(s): I10 - ESSENTIAL (PRIMARY) HYPERTENSION Status: Chronic Qualifiers: Hypertension type: essential hypertension Comment: labile control (7) Neuropathic pain Status: Chronic (8) Obesity (BMI 30.0-34.9) Code(s): E66.9 - OBESITY, UNSPECIFIED Status: Chronic - Plan * Pending placement * cont current plan of care with no changes * DC once arrangments made * case and plan d/w patient at length, she understood and agreed with this plan.
[2019-02-07] MEDS ORDERED: Hydrocortisone 1% Cream 30 GM TUBE TOP PRN (14:06)
--- NOTE | 2019-02-07 15:46 | PRG ---
DATE OF SERVICE: 02/07/2019 SUBJECTIVE: This is a 63-year-old female, who remains on the medical floor. The patient is status post laparoscopy for upper GI bleed, specifically for duodenal ulcer. The patient had hemorrhage afterwards and required several units of blood. The patient has been stable over the last several days. The patient is awake, alert, and has no complaints currently. The patient had no overnight issues. The patient continues to tolerate a full liquid diet and has been having bowel movements. OBJECTIVE: VITAL SIGNS: Temperature 97.6, pulse 111, SpO2 of 97% on 0.5 L nasal cannula, blood pressure 151/80. GENERAL: The patient awake, alert, in no distress, patient resting comfortably in bed. RESPIRATORY: Equal rise and fall of chest, no respiratory distress. HEART: Regular rate and regular rhythm. ABDOMEN: Healing midline incision. Abdomen is soft and nontender. Abdominal drain with very minimal output. EXTREMITIES: Moves all extremities, neurovascularly intact x4. LABORATORY DATA: There is no labs to evaluate today. IMPRESSION: 1. Status post antrectomy, gastrojejunostomy, history of chronic bleeding duodenal ulcer. 2. History of blood-loss anemia, stable. PLAN: Continue supportive care. Advance diet as tolerated. The patient is pending placement to rehab. The patient continues to be followed by Hospital Medicine. Plan was discussed with the attending surgeon, who agrees. Job ID: [id number]
[2019-02-07] MEDS: Acetaminophen 325 MG TAB PO PRN (18:13)
[2019-02-07] MEDS: Enoxaparin Sodium 40 MG/0.4 ML SYRINGE SC SCH (21:09)
[2019-02-07] MEDS: Zolpidem Tartrate 5 MG TAB PO PRN (21:27)
[2019-02-08] MEDS: diphenhydrAMINE 50 MG/ML VIAL IVP PRN ×3 (05:34→20:45)
[2019-02-08] MEDS: traMADol HCl 50 MG TAB PO PRN ×2 (05:36→11:09)
[2019-02-08] MEDS: Arformoterol 15 MCG/2 ML NEB NEB SCH ×2 (07:39→19:18)
[2019-02-08] MEDS: Budesonide 0.5 MG/2 ML NEB INH SCH ×2 (07:42→19:22)
[2019-02-08] MEDS: Saccharomyces boulardii 250 MG CAP PO SCH (08:16)
[2019-02-08] MEDS: Insulin Glargine 5 UNITS in Pre-Filled Syringe SC SCH (08:16)
[2019-02-08] MEDS: Magnesium Oxide 400 MG TAB PO SCH ×2 (08:17→20:39)
[2019-02-08] MEDS: Gabapentin 300 MG CAP PO SCH ×3 (08:17→20:38)
[2019-02-08] MEDS: K-Phos Neutral 250 MG TAB PO SCH ×3 (08:17→16:57)
[2019-02-08] MEDS: cloNIDine 0.2 MG TAB PO SCH ×2 (08:17→20:37)
[2019-02-08] MEDS: Ferrous Sulfate 325 MG TAB PO SCH ×2 (08:17→16:57)
[2019-02-08] MEDS: Amlodipine 10 MG TAB PO SCH (08:17)
[2019-02-08] MEDS: Pantoprazole 40 MG VIAL IVP SCH (08:18)
[2019-02-08] MEDS: Sodium Chloride 0.9% (PF) 10 ML VIAL FS PRN (08:18)
[2019-02-08] MEDS: Pot Chloride/Pot Bicarb/Cit Ac 25 mEq Effervescent Tablet PO SCH ×2 (08:35→20:41)
[2019-02-08] MEDS: fentaNYL 50 mcg/hour Patch TD SCH (12:33)
--- NOTE | 2019-02-08 17:40 | PRG ---
DATE OF SERVICE: 02/08/2019 SUBJECTIVE: The patient is seen and examined at bedside. She has Dobhoff in her right nostril. She is fed through this tube. She eats a little bit orally. OBJECTIVE: VITAL SIGNS: Blood pressure is 136/97, pulse is 107, temperature is 98.4, respiratory rate is 16, and O2 saturation is 95% on room air. HEENT: Her pupils are responding to light properly. Sclerae nonicteric. Oral mucosa is moist. NECK: Supple. LUNGS: Clear. HEART: S1 and S2 normal. ABDOMEN: There is a drain in her right upper abdomen. Abdomen is soft and nontender. Bowel sounds are present. EXTREMITIES: No clubbing, cyanosis, or edema. NEUROLOGIC: She follows my commands. She moves all 4 extremities. There are no any motor deficits. LABORATORY DATA: Labs showed a white count of 10.1, hemoglobin 9.8, hematocrit 30.6, platelet count 462,000. Glycemia is ranging from 113 to 197. IMPRESSION: 1. Abdominal abscess, status post drainage. 2. Abnormal LFTs due to biliary obstruction from periampullary swelling. 3. Acute respiratory failure with hypoxemia, status post intubation and mechanical ventilation, improved. 4. Anemia due to acute blood loss. 5. Atelectasis of the left lung, improved. 6. Perforated duodenal ulcer, status post antrectomy with duodenal stump leak postop. 7. Empyema of the lung, status post thoracotomy with decortication and chest tube, which was removed on the 01 of February. 8. Hypokalemia. 9. Hypomagnesemia. 10. Status post bypass gastrojejunostomy. 11. Diabetes mellitus, type 2. 12. Hypophosphatemia. 13. Pneumonia due to methicillin-resistant Staphylococcus aureus, finish course of linezolid and Zosyn. 14. Upper gastrointestinal bleeding, resolved. DISCUSSION: The patient is still draining quite significant amount from the drain overnight, it was 200. She was re-evaluated by surgical team today and the decision is to leave the drain in since she is still making a lot of output. We will continue her current regimen and when she is ready to have those tubes removed, she will be moved to the rehab/custodial facility for rehabilitation process since she was through a lot of medical problems, which make her weak and requiring a lot of PT. Job ID: [id number]
[2019-02-08] MEDS: Enoxaparin Sodium 40 MG/0.4 ML SYRINGE SC SCH (20:38)
[2019-02-08] MEDS: Loperamide HCl 2 MG CAP PO PRN (21:18)
[2019-02-08] MEDS: Zolpidem Tartrate 5 MG TAB PO PRN (21:19)
[2019-02-09] MEDS: traMADol HCl 50 MG TAB PO PRN ×3 (04:44→18:43)
[2019-02-09] MEDS: diphenhydrAMINE 50 MG/ML VIAL IVP PRN ×3 (04:45→21:16)
[2019-02-09] MEDS: Arformoterol 15 MCG/2 ML NEB NEB SCH ×2 (06:17→18:31)
[2019-02-09] MEDS: Budesonide 0.5 MG/2 ML NEB INH SCH ×2 (06:20→18:30)
[2019-02-09 07:00] LABS: Anion Gap 13 mmol/L (10-20); BUN (Urea Nitrogen) 20 mg/dL (9.8-20.1); Calc. Creatinine Clearance 60 mL/min (70-130); Calcium 9.5 mg/dL (7.8-10.44); Carbon Dioxide 32 mmol/L (23-31); Chloride 93 mmol/L (98-107); Estimated GFR-MDRD 62; Glucose 134 mg/dL (80-115); Magnesium 1.4 mg/dL (1.6-2.6); Potassium 4.8 mmol/L (3.5-5.1); Sodium 133 mmol/L (136-145)
[2019-02-09] MEDS: Insulin Glargine 5 UNITS in Pre-Filled Syringe SC SCH (08:05)
[2019-02-09] MEDS: K-Phos Neutral 250 MG TAB PO SCH ×3 (08:05→16:31)
[2019-02-09] MEDS: Pot Chloride/Pot Bicarb/Cit Ac 25 mEq Effervescent Tablet PO SCH ×2 (08:06→21:14)
[2019-02-09] MEDS: Ferrous Sulfate 325 MG TAB PO SCH ×2 (08:06→16:31)
[2019-02-09] MEDS: Saccharomyces boulardii 250 MG CAP PO SCH (08:07)
[2019-02-09] MEDS: Magnesium Oxide 400 MG TAB PO SCH ×2 (08:07→21:06)
[2019-02-09] MEDS: cloNIDine 0.2 MG TAB PO SCH ×2 (08:07→21:06)
[2019-02-09] MEDS: Gabapentin 300 MG CAP PO SCH ×3 (08:07→21:07)
[2019-02-09] MEDS: Pantoprazole 40 MG VIAL IVP SCH (08:08)
[2019-02-09] MEDS: Amlodipine 10 MG TAB PO SCH (08:08)
[2019-02-09] MEDS: Loperamide HCl 2 MG CAP PO PRN (08:13)
[2019-02-09] MEDS: diphenhydrAMINE 25 MG CAP PO PRN (11:45)
[2019-02-09] MEDS ORDERED: Menthol/Zinc Oxide 283 GM BOT TOP PRN (12:36)
--- NOTE | 2019-02-09 12:38 | PDOC.PN ---
- Subjective Encounter Start Date: 02/09/19 Encounter Start Time: 12:37 Patient seen and examined, no new issues. - Objective Resuscitation Status - Order Detail: 12/24/18 21:39 Resuscitation Status Routine Resuscitation Status: FULL: Full Resuscitation Vital Signs & Weight: Vital Signs (12 hours) Temp Pulse Resp BP BP BP Pulse Ox 02/09/19 08:08 107 H 02/09/19 08:07 134/72 02/09/19 07:27 98.6 F 107 H 18 139/95 H 92 L 02/09/19 06:17 109 H 18 90 L 02/09/19 04:00 98.3 F 103 H 20 149/71 H 95 Weight Admit Weight 125 lb 3.2 oz Weight 133 lb 6.075 oz Most Recent Monitor Data Heart Rate from ECG 121 NIBP 168/79 NIBP BP-Mean 108 Respiration from ECG 23 SpO2 88 I&O: 02/08/19 02/09/19 02/10/19 06:59 06:59 06:59 Intake Total 2890 2100 Output Total 1115 855 Balance 1775 1245 Result Diagrams: 02/06/19 04:41 02/09/19 05:02 Additional Labs: Accuchecks 02/09/19 02/09/19 02/08/19 11:32 04:30 20:40 POC Glucose 123 H 155 H 141 H 02/08/19 16:22 POC Glucose 112 H Phys Exam - Physical Examination Constitutional: NAD HEENT: PERRLA, moist MMs NG tube Neck: no nodes, no JVD Respiratory: no wheezing, no rales, no rhonchi Cardiovascular: RRR, no significant murmur, no rub Gastrointestinal: soft, non-tender, no distention Musculoskeletal: no edema, pulses present Dx/Plan (1) Anemia due to acute blood loss Code(s): D62 - ACUTE POSTHEMORRHAGIC ANEMIA Status: Acute Comment: s/p total 7 unit PRBC, H/H stable currently (2) Hypertensive urgency Code(s): I16.0 - HYPERTENSIVE URGENCY Status: Resolved Comment: improved (3) Transaminitis Code(s): R74.0 - NONSPEC ELEV OF LEVELS OF TRANSAMNS & LACTIC ACID DEHYDRGNSE Status: Acute (4) Diabetes type 2, controlled Code(s): E11.9 - TYPE 2 DIABETES MELLITUS WITHOUT COMPLICATIONS Status: Chronic Qualifiers: Diabetes mellitus halfway insulin use: with halfway use Comment: ISS, decrease Lantus, ADA when tolerating po intake (5) Dyslipidemia Code(s): E78.5 - HYPERLIPIDEMIA, UNSPECIFIED Status: Chronic (6) HTN (hypertension) Code(s): I10 - ESSENTIAL (PRIMARY) HYPERTENSION Status: Chronic Qualifiers: Hypertension type: essential hypertension Comment: labile control (7) Neuropathic pain Status: Chronic (8) Obesity (BMI 30.0-34.9) Code(s): E66.9 - OBESITY, UNSPECIFIED Status: Chronic - Plan * cont current plan of care * pending placement * will use medicated powder in areas itching, appears to be due to a heat rash from sweat * no other changes in plan of care
[2019-02-09] MEDS ORDERED: Magnesium 2 GM/50 ML 2 GM in Premix Bag 1 BAG IVPB SCH (13:15)
[2019-02-09] MEDS: Acetaminophen 325 MG TAB PO PRN (16:26)
[2019-02-09] MEDS: Enoxaparin Sodium 40 MG/0.4 ML SYRINGE SC SCH (21:06)
[2019-02-09] MEDS: Zolpidem Tartrate 5 MG TAB PO PRN (21:08)
[2019-02-10] MEDS: Acetaminophen 325 MG TAB PO PRN (02:53)
[2019-02-10] MEDS: traMADol HCl 50 MG TAB PO PRN ×3 (02:54→16:21)
[2019-02-10] MEDS: diphenhydrAMINE 25 MG CAP PO PRN (05:13)
[2019-02-10] MEDS: Loperamide HCl 2 MG CAP PO PRN (05:13)
[2019-02-10 05:56] LABS: #Eosinphils 0.2 thou/uL (0.0-0.7); #Lymphocytes 2.1 thou/uL (1.20-3.40); #Monocytes 0.9 thou/uL (0.11-0.59); #Neutrophils 5.4 thou/uL (1.40-6.50); %Basophils 0.5 % (0.0-1.0); %Eosinophils 1.8 % (0.0-10.0); %Lymphocytes 24.4 % (21.0-51.0); %Monocytes 9.9 % (0.0-10.0); %Neutrophils 63.4 % (42.0-75.0); Mean Corpuscular HGB CONC 31.7 g/dL (32.0-36.0); Mean Corpuscular Hemoglobin 28.2 pg (27.0-31.0); Mean Corpuscular Volume 88.8 fL (78.0-98.0); Mean Platelet Volume 7.2 fL (7.4-10.4); Platelet Count 507 thou/uL (130-400); RBC Distribution Width 13.7 % (11.5-14.5); White Blood Cell (WBC) Count 8.6 thou/uL (4.8-10.8)
[2019-02-10 06:24] LABS: Anion Gap 12 mmol/L (10-20); BUN (Urea Nitrogen) 19 mg/dL (9.8-20.1); Calc. Creatinine Clearance 58 mL/min (70-130); Calcium 9.4 mg/dL (7.8-10.44); Carbon Dioxide 31 mmol/L (23-31); Chloride 94 mmol/L (98-107); Estimated GFR-MDRD 59; Glucose 142 mg/dL (80-115); Magnesium 1.8 mg/dL (1.6-2.6); Phosphorus 5.3 mg/dL (2.3-4.7); Sodium 131 mmol/L (136-145)
[2019-02-10] MEDS: Arformoterol 15 MCG/2 ML NEB NEB SCH ×2 (07:15→19:31)
[2019-02-10] MEDS: Budesonide 0.5 MG/2 ML NEB INH SCH ×2 (07:17→19:32)
[2019-02-10] MEDS: Ferrous Sulfate 325 MG TAB PO SCH ×2 (09:56→16:16)
[2019-02-10] MEDS: Saccharomyces boulardii 250 MG CAP PO SCH (09:58)
[2019-02-10] MEDS: cloNIDine 0.2 MG TAB PO SCH ×2 (09:58→20:14)
[2019-02-10] MEDS: Gabapentin 300 MG CAP PO SCH ×3 (09:59→20:22)
[2019-02-10] MEDS: K-Phos Neutral 250 MG TAB PO SCH ×2 (09:59→13:37)
[2019-02-10] MEDS: Amlodipine 10 MG TAB PO SCH (09:59)
[2019-02-10] MEDS: Magnesium Oxide 400 MG TAB PO SCH ×2 (09:59→20:14)
[2019-02-10] MEDS: Pantoprazole 40 MG VIAL IVP SCH (10:00)
[2019-02-10] MEDS: Insulin Glargine 5 UNITS in Pre-Filled Syringe SC SCH (10:00)
--- NOTE | 2019-02-10 10:37 | PRG ---
DATE OF SERVICE: 02/10/2019 SUBJECTIVE: Ms. Qureshi is awake and alert today. She reports good pain control. She is passing flatus and having bowel movements. The percutaneous drainage cath returns decreasing amount of bilious fluid. OBJECTIVE: ABDOMEN: Soft, nontender, and nondistended. Bowel sounds in all 4 quadrants appear normoactive. VITAL SIGNS: Her vital signs otherwise remained stable with a blood pressure of 129/86, pulse 103, respiratory rate is 18, temperature is 98.2 degrees Fahrenheit, and oxygen saturation 96% on room air. LABORATORY FINDINGS: Today include a CBC with 8600 white blood cells, hemoglobin and hematocrit stable at 9.0 and 28.5 respectively. Platelet count is 507,000. Metabolic profile; sodium 131, potassium 6.0, glucose 94, bicarb is 31, BUN is 19, creatinine 0.95, glucose 142, magnesium 1.8, and phosphorus 5.3. IMPRESSION: 1. Postoperative day #16 status post antrectomy and gastrojejunostomy. The patient had developed duodenal stump leak, which has been percutaneously drained. The drainage is decreasing. 2. Acute hyperkalemia. PLAN: Oral potassium supplementation has been discontinued. The patient will be given Kayexalate rectally today and potassium monitored. home support worker is working on the discharge to rehab once potassium has normalized. Job ID: [id number]
--- NOTE | 2019-02-10 11:05 | PRG ---
DATE OF SERVICE: 02/09/2019 SUBJECTIVE: She voices no complaints , no fever , no shortness of breath. OBJECTIVE: VITAL SIGNS: Temperature 98, pulse 107, blood pressure 134/72, respiratory rate 20, O2 saturations 95 on room air . GENERAL: The patient is alert and awake, in no acute distress . LUNGS: Clear bilaterally. HEART: Regular rate and rhythm. ABDOMEN: Soft and nontender. Bowel sounds present. EXTREMITIES: no edema. NEUROLOGIC: She follow commands. GCS 15. There are no any motor deficits. LABORATORY DATA: Sodium 133, potassium 4.8, creatinine is 0.91, magnesium is 1.4, blood glucose is controlled. ASSESSMENT: Status post antrectomy, gastrojejunostomy, history of chronic bleeding duodenal ulcer, history of blood loss anemia, and duodenal stump leak drainage. PLAN: We will continue supportive care. Placement is pending rehab facility. Job ID: [id number] [facility]
--- NOTE | 2019-02-10 12:54 | PDOC.PN ---
- Subjective Encounter Start Date: 02/10/19 Encounter Start Time: 12:53 Patient seen and examined, no new issues. - Objective Resuscitation Status - Order Detail: 12/24/18 21:39 Resuscitation Status Routine Resuscitation Status: FULL: Full Resuscitation Vital Signs & Weight: Vital Signs (12 hours) Temp Pulse Resp BP BP Pulse Ox 02/10/19 09:59 108 H 169/96 H 02/10/19 09:58 169/96 H 02/10/19 07:59 98.4 F 108 H 18 169/96 H 93 L 02/10/19 07:18 98 02/10/19 07:17 107 H 16 98 02/10/19 07:15 107 H 16 98 02/10/19 05:00 98.2 F 103 H 18 168/91 H 96 Weight Admit Weight 125 lb 3.2 oz Weight 133 lb 6.075 oz Most Recent Monitor Data Heart Rate from ECG 121 NIBP 168/79 NIBP BP-Mean 108 Respiration from ECG 23 SpO2 88 I&O: 02/09/19 02/10/19 02/11/19 06:59 06:59 06:59 Intake Total 2100 1250 Output Total 855 1010 Balance 1245 240 Result Diagrams: 02/10/19 05:30 02/10/19 05:30 Additional Labs: Accuchecks 02/10/19 02/09/19 02/09/19 04:40 20:52 16:48 POC Glucose 191 H 120 H 126 H Phys Exam - Physical Examination Constitutional: NAD HEENT: PERRLA, moist MMs Neck: no nodes, no JVD, supple Respiratory: no wheezing, no rales, no rhonchi Cardiovascular: RRR, no significant murmur, no rub Gastrointestinal: soft, non-tender, no distention, positive bowel sounds Musculoskeletal: no edema, pulses present Dx/Plan (1) Anemia due to acute blood loss Code(s): D62 - ACUTE POSTHEMORRHAGIC ANEMIA Status: Acute Comment: s/p total 7 unit PRBC, H/H stable currently (2) Hypertensive urgency Code(s): I16.0 - HYPERTENSIVE URGENCY Status: Resolved Comment: improved (3) Transaminitis Code(s): R74.0 - NONSPEC ELEV OF LEVELS OF TRANSAMNS & LACTIC ACID DEHYDRGNSE Status: Acute (4) Diabetes type 2, controlled Code(s): E11.9 - TYPE 2 DIABETES MELLITUS WITHOUT COMPLICATIONS Status: Chronic Qualifiers: Diabetes mellitus residential insulin use: with residential use Comment: ISS, decrease Lantus, ADA when tolerating po intake (5) Dyslipidemia Code(s): E78.5 - HYPERLIPIDEMIA, UNSPECIFIED Status: Chronic (6) HTN (hypertension) Code(s): I10 - ESSENTIAL (PRIMARY) HYPERTENSION Status: Chronic Qualifiers: Hypertension type: essential hypertension Comment: labile control (7) Neuropathic pain Status: Chronic (8) Obesity (BMI 30.0-34.9) Code(s): E66.9 - OBESITY, UNSPECIFIED Status: Chronic - Plan * pending placement * cont current plan of care * labs in AM
[2019-02-10] MEDS: diphenhydrAMINE 50 MG/ML VIAL IVP PRN ×2 (16:16→20:14)
[2019-02-10 16:18] LABS: Anion Gap 16 mmol/L (10-20); BUN (Urea Nitrogen) 18 mg/dL (9.8-20.1); Calc. Creatinine Clearance 65 mL/min (70-130); Calcium 8.6 mg/dL (7.8-10.44); Carbon Dioxide 22 mmol/L (23-31); Chloride 94 mmol/L (98-107); Estimated GFR-MDRD 68; Glucose 114 mg/dL (80-115); Potassium 5.3 mmol/L (3.5-5.1); Sodium 127 mmol/L (136-145)
[2019-02-10] MEDS: Enoxaparin Sodium 40 MG/0.4 ML SYRINGE SC SCH (20:15)
[2019-02-10] MEDS: Zolpidem Tartrate 5 MG TAB PO PRN (20:29)
[2019-02-11 04:58] LABS: #Eosinphils 0.1 thou/uL (0.0-0.7); #Lymphocytes 2.2 thou/uL (1.20-3.40); #Monocytes 0.6 thou/uL (0.11-0.59); #Neutrophils 5.4 thou/uL (1.40-6.50); %Basophils 0.2 % (0.0-1.0); %Eosinophils 1.5 % (0.0-10.0); %Monocytes 7.7 % (0.0-10.0); %Neutrophils 64.7 % (42.0-75.0); Hemoglobin 9.2 g/dL (12.0-16.0); Mean Corpuscular Hemoglobin 28.7 pg (27.0-31.0); Mean Corpuscular Volume 89.5 fL (78.0-98.0); Mean Platelet Volume 7.4 fL (7.4-10.4); Platelet Count 520 thou/uL (130-400); RBC Distribution Width 13.8 % (11.5-14.5); White Blood Cell (WBC) Count 8.4 thou/uL (4.8-10.8)
[2019-02-11 05:22] LABS: Anion Gap 12 mmol/L (10-20); BUN (Urea Nitrogen) 16 mg/dL (9.8-20.1); Calc. Creatinine Clearance 65 mL/min (70-130); Calcium 9.4 mg/dL (7.8-10.44); Carbon Dioxide 28 mmol/L (23-31); Chloride 96 mmol/L (98-107); Estimated GFR-MDRD 68; Glucose 161 mg/dL (80-115); Potassium 4.7 mmol/L (3.5-5.1); Sodium 131 mmol/L (136-145)
[2019-02-11] MEDS: traMADol HCl 50 MG TAB PO PRN ×4 (05:35→21:02)
[2019-02-11] MEDS: Arformoterol 15 MCG/2 ML NEB NEB SCH ×2 (07:23→19:39)
[2019-02-11] MEDS: Budesonide 0.5 MG/2 ML NEB INH SCH ×2 (07:23→19:39)
[2019-02-11] MEDS: Saccharomyces boulardii 250 MG CAP PO SCH (08:49)
[2019-02-11] MEDS: Ferrous Sulfate 325 MG TAB PO SCH ×2 (08:50→17:19)
[2019-02-11] MEDS: Gabapentin 300 MG CAP PO SCH ×3 (08:50→21:02)
[2019-02-11] MEDS: cloNIDine 0.2 MG TAB PO SCH ×2 (08:50→21:01)
[2019-02-11] MEDS: Amlodipine 10 MG TAB PO SCH (08:51)
[2019-02-11] MEDS: Magnesium Oxide 400 MG TAB PO SCH ×2 (08:51→21:03)
[2019-02-11] MEDS: Insulin Glargine 5 UNITS in Pre-Filled Syringe SC SCH (08:52)
[2019-02-11] MEDS: Pantoprazole 40 MG VIAL IVP SCH (08:53)
[2019-02-11] MEDS: diphenhydrAMINE 50 MG/ML VIAL IVP PRN ×3 (09:17→21:02)
[2019-02-11] MEDS: fentaNYL 50 mcg/hour Patch TD SCH (09:22)
--- NOTE | 2019-02-11 12:00 | PDOC.PN ---
- Subjective Encounter Start Date: 02/11/19 Encounter Start Time: 12:00 Patient seen and examined, no new issues. - Objective Resuscitation Status - Order Detail: 12/24/18 21:39 Resuscitation Status Routine Resuscitation Status: FULL: Full Resuscitation Vital Signs & Weight: Vital Signs (12 hours) Pulse Resp BP Pulse Ox 02/11/19 08:51 109 H 144/78 H 02/11/19 08:50 144/78 H 02/11/19 08:00 99 02/11/19 07:24 98 02/11/19 07:23 112 H 18 98 02/11/19 04:11 109 H 95 Weight Admit Weight 125 lb 3.2 oz Weight 133 lb 6.075 oz Most Recent Monitor Data Heart Rate from ECG 121 NIBP 168/79 NIBP BP-Mean 108 Respiration from ECG 23 SpO2 88 I&O: 02/10/19 02/11/19 02/12/19 06:59 06:59 06:59 Intake Total 1250 530 Output Total 1010 1275 Balance 240 -745 Result Diagrams: 02/11/19 04:28 02/11/19 04:28 Additional Labs: Accuchecks 02/11/19 02/10/19 02/10/19 05:20 20:49 16:38 POC Glucose 163 H 104 118 H 02/10/19 11:57 POC Glucose 149 H Phys Exam - Physical Examination Constitutional: NAD HEENT: PERRLA, moist MMs, sclera anicteric Neck: no nodes, no JVD, supple Respiratory: no wheezing, no rales, no rhonchi Cardiovascular: RRR, no significant murmur, no rub Gastrointestinal: soft, non-tender, no distention, positive bowel sounds Musculoskeletal: pulses present, edema present Dx/Plan (1) Anemia due to acute blood loss Code(s): D62 - ACUTE POSTHEMORRHAGIC ANEMIA Status: Acute Comment: s/p total 7 unit PRBC, H/H stable currently (2) Hypertensive urgency Code(s): I16.0 - HYPERTENSIVE URGENCY Status: Resolved Comment: improved (3) Transaminitis Code(s): R74.0 - NONSPEC ELEV OF LEVELS OF TRANSAMNS & LACTIC ACID DEHYDRGNSE Status: Acute (4) Diabetes type 2, controlled Code(s): E11.9 - TYPE 2 DIABETES MELLITUS WITHOUT COMPLICATIONS Status: Chronic Qualifiers: Diabetes mellitus terminal carman insulin use: with penitentiary use Comment: ISS, decrease Lantus, ADA when tolerating po intake (5) Dyslipidemia Code(s): E78.5 - HYPERLIPIDEMIA, UNSPECIFIED Status: Chronic (6) HTN (hypertension) Code(s): I10 - ESSENTIAL (PRIMARY) HYPERTENSION Status: Chronic Qualifiers: Hypertension type: essential hypertension Comment: labile control (7) Neuropathic pain Status: Chronic (8) Obesity (BMI 30.0-34.9) Code(s): E66.9 - OBESITY, UNSPECIFIED Status: Chronic - Plan * pending placement * cont current plan of care * DC once placement arranged
--- NOTE | 2019-02-11 13:12 | PRG ---
DATE OF SERVICE: 02/11/2019 SUBJECTIVE: The patient was seen this morning sitting up in bed with no signs of acute distress. She did complain of some persistent abdominal pain. She said she slept well overnight and had a bowel movement yesterday. She is tolerating her diet without any complaints. The patient appears more alert and in better spirits today as well. PHYSICAL EXAMINATION: VITAL SIGNS: Temperature 98, pulse 109, respirations 18, oxygen saturation 99% on room air, and blood pressure 144/78. GENERAL: Middle-aged female, sitting up in bed with no signs of acute distress. PULMONARY: Equal chest rise and fall. Clear breath sounds bilaterally. No signs of acute respiratory distress. ABDOMEN: Soft, mildly tender to palpation, nondistended. Perc drain in place with yellowish output in bag, which is unchanged from previous. CARDIAC: Tachycardic, but regular rhythm. No murmurs, gallops, or rubs. EXTREMITIES: 2+ pulses in all extremities. No significant swelling noted. LABORATORY FINDINGS: White count 8.4, hemoglobin 9.2, hematocrit 28.6, and platelets 520. Sodium 131, potassium 4.7, chloride 96, carbon dioxide 28, BUN 16, creatinine 0.85, and glucose 161. DIAGNOSTIC FINDINGS: There are no new diagnostic findings to report. ASSESSMENT: 1. Postop day 17, status post antrectomy and gastrojejunostomy. The patient has had developed a duodenal stump leak, which is controlled with a percutaneous drain. 2. Acute hyperkalemia, resolved. PLAN: Continue current diet and pain regimen. Did encourage the patient to ambulate and sit up in chair as much as possible. Can also wean off nasal cannula oxygen as able. Continue to hold potassium supplementations. Hyperkalemia seems to have resolved. Continue physical therapy. The patient is pending placement at a rehab facility and she is ready for discharge at this time. The patient was seen and examined by Dr. Brito and myself this morning during rounds. Job ID: [id number]
[2019-02-11] MEDS: Enoxaparin Sodium 40 MG/0.4 ML SYRINGE SC SCH (21:01)
[2019-02-11] MEDS: Zolpidem Tartrate 5 MG TAB PO PRN (22:16)
[2019-02-12] MEDS: traMADol HCl 50 MG TAB PO PRN ×3 (03:07→18:11)
[2019-02-12] MEDS: diphenhydrAMINE 50 MG/ML VIAL IVP PRN ×5 (03:07→21:23)
[2019-02-12] MEDS: Arformoterol 15 MCG/2 ML NEB NEB SCH ×2 (07:23→18:36)
[2019-02-12] MEDS: Budesonide 0.5 MG/2 ML NEB INH SCH ×2 (07:23→18:35)
[2019-02-12] MEDS: Saccharomyces boulardii 250 MG CAP PO SCH (08:51)
[2019-02-12] MEDS: Gabapentin 300 MG CAP PO SCH ×3 (08:51→21:08)
[2019-02-12] MEDS: Ferrous Sulfate 325 MG TAB PO SCH ×2 (08:51→16:37)
[2019-02-12] MEDS: Amlodipine 10 MG TAB PO SCH (08:52)
[2019-02-12] MEDS: Sodium Chloride 0.9% (PF) 10 ML VIAL FS PRN (08:52)
[2019-02-12] MEDS: cloNIDine 0.2 MG TAB PO SCH ×2 (08:52→21:09)
[2019-02-12] MEDS: Magnesium Oxide 400 MG TAB PO SCH ×2 (08:52→21:09)
[2019-02-12] MEDS: Pantoprazole 40 MG VIAL IVP SCH (08:53)
[2019-02-12] MEDS: Insulin Glargine 5 UNITS in Pre-Filled Syringe SC SCH (08:57)
--- NOTE | 2019-02-12 16:20 | PRG ---
DATE OF SERVICE: 02/12/2019 SUBJECTIVE: The patient is seen and examined at the bedside. She does not have much complaints to offer. She tolerates her feeding through the Dobhoff tube at night. OBJECTIVE: VITAL SIGNS: Blood pressure is 155/78, pulse is 111, respiratory rate 18, O2 saturation is 92%, and temperature is 98.1. HEENT: She has Dobhoff tube in her right nostril. Her pupils are responding to light properly. Sclerae are nonicteric. Oral mucosa is moist. NECK: Supple. LUNGS: Clear. HEART: S1, S2 normal. ABDOMEN: She has a drain in the right side, which still drains quite a bit of yellowish fluid. Her bowel sounds are present. Abdomen is soft, nontender. EXTREMITIES: No clubbing, cyanosis, or edema. NEUROLOGIC: She follows my commands. She moves all 4 extremities. There are no any motor deficits. LABORATORY DATA: Glycemia is ranging from 131 to 163. Microbiology, no new findings. IMPRESSION: 1. Postop day 18 status post antrectomy and gastrojejunostomy. She developed a duodenal stump leak, which is controlled with a percutaneous drain. 2. Abdominal abscess, status post drain. Culture grew methicillin-resistant Staphylococcus aureus and Klebsiella pneumonia. 3. Abnormal LFTs due to biliary obstruction from periampullary swelling. 4. Acute respiratory failure with hypoxia resolved. 5. Anemia due to acute blood loss, status post multiple PRBC units. 6. Duodenal ulcer perforated TPN, empyema of the lung status post thoracotomy with decortication and chest tube removed on 01 of February. 7. Hypokalemia. 8. Hyperkalemia. 9. Hypomagnesemia corrected. 10. Diabetes mellitus type 2. 11. Hypophosphatemia. 12. Pneumonia. 13. Course of linezolid and Zosyn. PLAN: The patient is unfunded and she is not going to be transferred to any rehab or skilled for PT continuation. We will continue current regimen when the drain output slows down. She will be tried on more substantial diet and Dobhoff will be removed and she will be able to go home. We will continue DVT prophylaxis. We will continue her amlodipine, clonidine, iron, gabapentin, insulin, magnesium, pantoprazole and probiotics. We will continue PT and OT and ST. Job ID: [id number]
[2019-02-12] MEDS: Enoxaparin Sodium 40 MG/0.4 ML SYRINGE SC SCH (21:08)
[2019-02-12] MEDS: Zolpidem Tartrate 5 MG TAB PO PRN (21:09)
--- NOTE | 2019-02-12 22:27 | PRG ---
DATE OF SERVICE: 02/12/2019 SUBJECTIVE: The patient was seen this morning, sitting up in bed with no signs of acute distress. Reported pain was well controlled and she is tolerating her diet. Drain output has increased since yesterday. However, nursing reported it was not adequately documented yesterday and as such, it is not correctly documented today. So, it has increased, but we are not exactly sure about how much. The patient actually reports she is feeling better than the previous days and denies nausea, vomiting, or diarrhea. OBJECTIVE: VITAL SIGNS: Temperature 98.1, pulse 111, respirations 18, oxygen saturation 92% on room air, and blood pressure 163/80. GENERAL: Middle-aged female, sitting up in bed with no signs of acute distress. PULMONARY: Equal chest rise and fall. Clear breath sounds bilaterally. No signs of acute respiratory distress. ABDOMEN: Soft, nontender, and nondistended. Perc drain in place with yellowish output in bag, which is unchanged from previous. CARDIAC: Tachycardic, but regular rhythm. No murmurs, gallops, or rubs. EXTREMITIES: 2+ pulses in all extremities. No significant swelling noted. ASSESSMENT: Postop day 18 status post antrectomy and gastro-jejunectomy. The patient has developed a duodenal stump leak, which is controlled with percutaneous drain. PLAN: Continue current diet and pain regimen. Continue to encourage ambulation in the hallway and sitting up in chair as much as possible. Continue to wean O2 as able. She is pending discharge. Job ID: [id number]
[2019-02-13] MEDS: Budesonide 0.5 MG/2 ML NEB INH SCH ×2 (07:36→19:03)
[2019-02-13] MEDS: Arformoterol 15 MCG/2 ML NEB NEB SCH ×2 (07:36→19:03)
[2019-02-13] MEDS: cloNIDine 0.2 MG TAB PO SCH ×2 (09:02→20:53)
[2019-02-13] MEDS: Ferrous Sulfate 325 MG TAB PO SCH ×2 (09:02→17:14)
[2019-02-13] MEDS: Amlodipine 10 MG TAB PO SCH (09:02)
[2019-02-13] MEDS: Magnesium Oxide 400 MG TAB PO SCH ×2 (09:03→21:27)
[2019-02-13] MEDS: Insulin Glargine 5 UNITS in Pre-Filled Syringe SC SCH (09:03)
[2019-02-13] MEDS: Pantoprazole 40 MG VIAL IVP SCH (09:03)
[2019-02-13] MEDS: Saccharomyces boulardii 250 MG CAP PO SCH (09:03)
[2019-02-13] MEDS: diphenhydrAMINE 50 MG/ML VIAL IVP PRN ×4 (09:12→19:03)
[2019-02-13] MEDS: Gabapentin 300 MG CAP PO SCH ×3 (09:12→20:53)
[2019-02-13] MEDS: Insulin Regular 300 UNITS/3 ML VIAL SC PRN (11:55)
--- NOTE | 2019-02-13 13:57 | PDOC.GSPN ---
Surgery Progress Note: Subj - Subjective Patient reports: no new complaints (Edwin fulls) Surgery Progress Note: Obj - Vital signs Vital signs: Vital Signs - Most Recent Temp Pulse Resp BP Pulse Ox 98.8 F 101 H 16 127/77 99 02/13/19 08:00 02/13/19 08:00 02/13/19 08:00 02/13/19 09:02 02/13/19 08:00 - Physical Exam General: no distress Respiratory: clear to auscultation Abdomen: soft, non tender, nondistended Wound: healing well Surgery Progress Note: Results - Labs Result Diagrams: 02/11/19 04:28 02/11/19 04:28 Lab results: Laboratory Results - last 24 hr 02/13/19 05:53 POC Glucose 203 H Surgery Progress Note: A/P - Problem (1) Perforated duodenal ulcer with hemorrhage Current Visit: Yes Code(s): K26.6 - CHRONIC OR UNSP DUODENAL ULCER W BOTH HEMORRHAGE AND PERF Status: Acute - Plan Plan: Needs to be more active Try regular food
[2019-02-13] MEDS: traMADol HCl 50 MG TAB PO PRN (14:58)
--- NOTE | 2019-02-13 15:49 | PRG ---
DATE OF SERVICE: 02/13/2019 SUBJECTIVE: The patient is seen and examined at the bedside. She seems to be doing quite well. She is able to tolerate her liquid diet. She does not complains about any abdominal pain. From the nursing, we still have a lot of drainage from the drain approximately 300 mL per 24 hours. She still has her Dobhoff in place and gets some feeding at night through the tube. OBJECTIVE: VITAL SIGNS: Blood pressure is 127/77, pulse is 101, temperature is 98.8, respirations 16, and O2 saturation 99% percent on 2 L by nasal cannula. HEENT: Head is atraumatic and normocephalic. Eyes are PERRLA. Sclerae are nonicteric. Oral mucosa is moist. NECK: Supple. LUNGS: Clear. HEART: S1 and S2 normal. ABDOMEN: Right upper quadrant area with drain in place. Bowel sounds are present. No organomegaly. EXTREMITIES: No clubbing, cyanosis, or edema. NEUROLOGICAL: She follows my commands. She moves all 4 extremities. There is no any motor or sensory deficits. LABORATORY DATA: Glycemia is ranging from 159 to 203. IMPRESSION: 1. Postop day 19, status post antrectomy and gastrojejunostomy. She developed a duodenal stump leak, which is controlled with a percutaneous drain. 2. Abdominal abscess, status post drain. Culture grew methicillin-resistant Staphylococcus aureus and Klebsiella pneumoniae. 3. Abnormal LFTs due to biliary obstruction from periampullary swelling. 4. Acute respiratory failure with hypoxia, resolved. 5. Anemia due to acute blood loss, status post multiple PRBC units transfusion. 6. Duodenal ulcer perforation, status post TPN, empyema of the lung, status post thoracotomy with decortication and chest tube removed on the 01 of February. 7. Hypokalemia, corrected. 8. Hyperkalemia, corrected. 9. Hypomagnesemia, corrected. 10. Diabetes mellitus, type 2. 11. Hypophosphatemia. 12. Pneumonia. 13. Status post course of linezolid and Zosyn. PLAN: The patient was seen by General Surgeon, who recommends to try some solid food. Continue drainage and continue Dobhoff for now. Continue PT/OT and probiotics. Job ID: [id number]
[2019-02-13] MEDS: Acetaminophen 325 MG TAB PO PRN (17:26)
[2019-02-13] MEDS: Ondansetron PF 4 MG/2 ML Vial IVP PRN (17:26)
[2019-02-13] MEDS: Enoxaparin Sodium 40 MG/0.4 ML SYRINGE SC SCH (20:54)
[2019-02-13] MEDS: Zolpidem Tartrate 5 MG TAB PO PRN (21:27)
[2019-02-14] MEDS: traMADol HCl 50 MG TAB PO PRN ×2 (07:00→20:43)
[2019-02-14] MEDS: Arformoterol 15 MCG/2 ML NEB NEB SCH ×2 (07:17→19:44)
[2019-02-14] MEDS: Budesonide 0.5 MG/2 ML NEB INH SCH ×2 (07:19→19:45)
[2019-02-14] MEDS: Gabapentin 300 MG CAP PO SCH ×3 (08:24→20:43)
[2019-02-14] MEDS: Saccharomyces boulardii 250 MG CAP PO SCH (08:24)
[2019-02-14] MEDS: Ferrous Sulfate 325 MG TAB PO SCH ×2 (08:24→17:25)
[2019-02-14] MEDS: Magnesium Oxide 400 MG TAB PO SCH ×2 (08:24→20:43)
[2019-02-14] MEDS: Amlodipine 10 MG TAB PO SCH (08:24)
[2019-02-14] MEDS: cloNIDine 0.2 MG TAB PO SCH ×2 (08:24→20:44)
[2019-02-14] MEDS: Insulin Glargine 5 UNITS in Pre-Filled Syringe SC SCH (08:24)
[2019-02-14] MEDS: diphenhydrAMINE 50 MG/ML VIAL IVP PRN ×4 (08:51→20:42)
[2019-02-14] MEDS: fentaNYL 50 mcg/hour Patch TD SCH (09:29)
--- NOTE | 2019-02-14 15:30 | PRG ---
DATE OF SERVICE: 02/14/2019 SUBJECTIVE: The patient is seen and examined at the bedside. She tolerates her solid food, regular diet without any abdominal discomfort. No nausea. No vomiting. No diarrhea. OBJECTIVE: VITAL SIGNS: Blood pressure is 132/80, pulse is 95, temperature is 99.5, respiratory rate is 18, and O2 saturation is 93% on room air. HEENT: Her pupils are responding to light properly. Sclerae are nonicteric. Oral mucosa is moist. NECK: Supple. LUNGS: Clear. HEART: S1 and S2 are normal. ABDOMEN: Soft, nontender to palpation. Drain is in place. Bowel sounds present. EXTREMITIES: No clubbing, cyanosis, or edema. NEUROLOGICAL: She follows my commands. She moves her all 4 extremities. There are no any motor or sensory deficits. LABORATORY DATA: Labs showed glycemia is ranging from 134 to 167. IMPRESSION: 1. Postop day 20, status post antrectomy and gastrojejunostomy, status post duodenal stump leak development, which is controlled with a percutaneous drain, which is still draining quite a bit of fluid. 2. Abdominal abscess, status post drain, methicillin-resistant Staphylococcus aureus, Klebsiella. 3. Acute respiratory failure with hypoxia, resolved. 4. Anemia due to acute blood loss, status post transfusion of multiple PRBCs. 5. Duodenal ulcer perforation, status post TPN. 6. Empyema of the lung, status post thoracotomy with decortication and chest tube removed on the 01 of February. 7. Diabetes mellitus, type 2, relatively well controlled. 8. Status post pneumonia. 9. Status post course of linezolid and Zosyn. PLAN: She tolerates her food without any problem. We are going to wait until tomorrow and most likely if she is fine we remove the tube and the drain and her abdomen will be managed by a general surgeon. Job ID: [id number]
[2019-02-14] MEDS: Enoxaparin Sodium 40 MG/0.4 ML SYRINGE SC SCH (20:44)
[2019-02-14] MEDS: Zolpidem Tartrate 5 MG TAB PO PRN (22:03)
[2019-02-15] MEDS: diphenhydrAMINE 50 MG/ML VIAL IVP PRN ×2 (03:31→06:18)
[2019-02-15] MEDS: traMADol HCl 50 MG TAB PO PRN (06:19)
[2019-02-15] MEDS: Arformoterol 15 MCG/2 ML NEB NEB SCH ×2 (07:16→21:04)
[2019-02-15] MEDS: Budesonide 0.5 MG/2 ML NEB INH SCH ×2 (07:16→21:04)
[2019-02-15] MEDS: Amlodipine 10 MG TAB PO SCH (08:34)
[2019-02-15] MEDS: Ferrous Sulfate 325 MG TAB PO SCH ×2 (08:34→17:33)
[2019-02-15] MEDS: Magnesium Oxide 400 MG TAB PO SCH ×2 (08:34→21:00)
[2019-02-15] MEDS: Gabapentin 300 MG CAP PO SCH ×3 (08:34→20:59)
[2019-02-15] MEDS: cloNIDine 0.2 MG TAB PO SCH ×2 (08:34→21:00)
[2019-02-15] MEDS: Insulin Glargine 5 UNITS in Pre-Filled Syringe SC SCH (08:35)
[2019-02-15] MEDS: diphenhydrAMINE 25 MG CAP PO PRN (11:45)
[2019-02-15] MEDS: Insulin Regular 300 UNITS/3 ML VIAL SC PRN (11:50)
--- NOTE | 2019-02-15 14:13 | PRG ---
DATE OF SERVICE: 02/15/2019 SUBJECTIVE: The patient is seen and examined at the bedside. She is able to eat and approximately 75% of what she is offered. There is no any pain or any nausea. She has approximately 150 to 200 mL of drainage, yellowish fluid from her drain per 24 hours. OBJECTIVE: VITAL SIGNS: Blood pressure is 160/78, pulse is 97, respirations 18, O2 saturation is 94% on room air, temperature is 98. HEENT: She has a Dobhoff in her right nostril. Her eyes are PERRLA. Sclerae are nonicteric. Oral mucosa is moist. NECK: Supple. LUNGS: Clear. HEART: S1 and S2 normal. ABDOMEN: The drain is in place. Bowel sounds are present. No organomegaly. EXTREMITIES: No clubbing, cyanosis, or edema. NEUROLOGIC: She follows my commands. She moves all 4 extremities. There is no any motor deficits. LABORATORY DATA: None today. Her glycemia is ranging from 113 to 188. IMPRESSION: 1. Postoperative day 21, status post antrectomy and gastrojejunostomy, status post duodenal stump leak development, which is controlled with a percutaneous drain. Last 24 hour volume is approximately 175 to 200 mL. 2. Abdominal abscess, status post drain, methicillin-resistant Staphylococcus aureus and Klebsiella. 3. Acute respiratory failure with hypoxia, resolved. 4. Anemia due to acute blood loss and status post transfusion of multiple PRBCs. 5. Duodenal ulcer perforation, status post total parenteral nutrition. 6. Empyema of the lung, status post thoracotomy with decortication and chest tube was removed. 7. Diabetes mellitus type 2, controlled. 8. Status post pneumonia. 9. Status post course of linezolid and Zosyn. PLAN: Remove the Dobhoff. Encourage more PT and continue supportive care and we will try to get her transferred to the [facility] facility for PT and OT. Job ID: [id number]
[2019-02-15] MEDS: Saccharomyces boulardii 250 MG CAP PO SCH (14:37)
--- NOTE | 2019-02-15 16:14 | PRG ---
DATE OF SERVICE: 02/15/2019 SUBJECTIVE: Ms. Qureshi has no complaints. She is tolerating regular food. Her Dobhoff has been removed, has her PICC line. She is still hesitant to get out of bed at times. She is using Purewick for most of her urinations and not getting out of bed to the commode. She is afebrile. Her vital signs are stable. Her drain output is slightly increased. It was flushed last night. It is 100 so far today and it is clear by looking. Her abdomen is soft. Her incision is well healed. ASSESSMENT: 1. Gastrectomy with loop gastrojejunostomy complicated by duodenal stump leak. 2. History of right-sided decortication for loculated pleural effusion. 3. Deconditioning. PLAN: I am going to write an order for the patient to be out of bed for all meals to the chair. She is going to have to get out of bed to use the toilet. She can go home with perc drain in place. She is medically stable for discharge at this point, however, she needs to improve upon her activity level and ability to get out of bed first. Job ID: [id number]
[2019-02-15] MEDS: Enoxaparin Sodium 40 MG/0.4 ML SYRINGE SC SCH (21:00)
[2019-02-15] MEDS: Zolpidem Tartrate 5 MG TAB PO PRN (21:50)
[2019-02-16] MEDS: diphenhydrAMINE 25 MG CAP PO PRN ×2 (00:29→15:09)
[2019-02-16] MEDS: Arformoterol 15 MCG/2 ML NEB NEB SCH (06:45)
[2019-02-16] MEDS: Budesonide 0.5 MG/2 ML NEB INH SCH (06:48)
[2019-02-16] MEDS: Gabapentin 300 MG CAP PO SCH ×3 (09:00→19:56)
[2019-02-16] MEDS: Ferrous Sulfate 325 MG TAB PO SCH ×2 (09:00→17:09)
[2019-02-16] MEDS: Amlodipine 10 MG TAB PO SCH (09:00)
[2019-02-16] MEDS: cloNIDine 0.2 MG TAB PO SCH ×2 (09:00→19:56)
[2019-02-16] MEDS: Saccharomyces boulardii 250 MG CAP PO SCH (09:00)
[2019-02-16] MEDS: Magnesium Oxide 400 MG TAB PO SCH ×2 (09:00→19:57)
[2019-02-16] MEDS: Insulin Glargine 5 UNITS in Pre-Filled Syringe SC SCH (09:01)
[2019-02-16] MEDS: Ondansetron PF 4 MG/2 ML Vial IVP PRN (09:05)
[2019-02-16] MEDS: traMADol HCl 50 MG TAB PO PRN ×2 (11:06→19:54)
[2019-02-16] MEDS: Insulin Regular 300 UNITS/3 ML VIAL SC PRN (12:30)
--- NOTE | 2019-02-16 14:41 | PRG ---
DATE OF SERVICE: 02/16/2019 SUBJECTIVE: The patient is seen and examined at bedside. She is doing quite well. She has some pains all over, but she is tolerating her food without any problems. No nausea. No vomiting. No stomach pain. She eats almost 100% and Dobhoff tube was removed yesterday. Her drain is still draining about 300 mL per 24 hours. OBJECTIVE: VITAL SIGNS: Blood pressure is 135/77, pulse is 93, respirations 14, O2 saturation 92% on room air, and her temperature is 98.9. LABORATORY DATA: Glycemia is ranging from 101 to 191. IMPRESSION: 1. Postoperative day 22 status post antrectomy and gastrojejunostomy, status post duodenal stump leak development and percutaneous drain in place. Last 24 hour volume from the drain is approximately 300 mL. 2. Abdominal abscess, status post drain. Methicillin-resistant Staphylococcus aureus and Klebsiella on culture. 3. Acute respiratory failure with hypoxia, resolved. 4. Anemia due to acute blood loss and status post transfusion of multiple PRBCs. 5. Duodenal ulcer perforation, status post total parenteral nutrition. 6. Empyema of the lung, status post thoracotomy with decortication. 7. Diabetes mellitus type 2. 8. Status post pneumonia. 9. Status post course of linezolid and Zosyn. PLAN: Dobhoff tube is removed. She is tolerating her oral intake without any problems. She is almost 100% on whatever she is giving and she is working with physical therapist and we started looking for [facility] facility for her to go for PT and transition to home at some point and she will continue her current regimen. We are going to stop her scheduled dose of long-acting beta agonist and inhaled steroids. She will do Asif p.r.n. Job ID: [id number]
[2019-02-16] MEDS: Enoxaparin Sodium 40 MG/0.4 ML SYRINGE SC SCH (19:57)
[2019-02-16] MEDS: Zolpidem Tartrate 5 MG TAB PO PRN (21:24)
[2019-02-17] MEDS: traMADol HCl 50 MG TAB PO PRN ×3 (04:59→20:39)
[2019-02-17] MEDS: Acetaminophen 325 MG TAB PO PRN ×2 (04:59→16:13)
[2019-02-17] MEDS: Gabapentin 300 MG CAP PO SCH ×3 (09:04→20:40)
[2019-02-17] MEDS: Saccharomyces boulardii 250 MG CAP PO SCH (09:04)
[2019-02-17] MEDS: Ferrous Sulfate 325 MG TAB PO SCH ×2 (09:04→16:13)
[2019-02-17] MEDS: diphenhydrAMINE 25 MG CAP PO PRN ×2 (09:04→22:24)
[2019-02-17] MEDS: Amlodipine 10 MG TAB PO SCH (09:05)
[2019-02-17] MEDS: Magnesium Oxide 400 MG TAB PO SCH ×2 (09:06→20:40)
[2019-02-17] MEDS: cloNIDine 0.2 MG TAB PO SCH ×2 (09:06→20:40)
[2019-02-17] MEDS: Insulin Glargine 5 UNITS in Pre-Filled Syringe SC SCH (10:39)
[2019-02-17] MEDS: fentaNYL 50 mcg/hour Patch TD SCH (10:39)
--- NOTE | 2019-02-17 14:04 | PRG ---
DATE OF SERVICE: 02/17/2019 SUBJECTIVE: The patient is seen and examined at the bedside. She is making small progress every day. She participates in physical therapy. Her appetite is good. She eats almost everything without any abdominal pain or nausea. OBJECTIVE: VITAL SIGNS: Blood pressure is 129/78, pulse is 92, respiratory rate is 18, O2 saturation is 94% on room air, and her temperature is 97.8. HEENT: Head is atraumatic and normocephalic. Eyes are PERRLA. Sclerae are nonicteric. Oral mucosa is moist. NECK: Supple. LUNGS: Clear. HEART: S1, S2 normal. ABDOMEN: The drain is still in place. Bowel sounds present. No organomegaly. EXTREMITIES: No clubbing, cyanosis, or edema. NEUROLOGICAL: She moves her all 4 extremities. There are no any motor deficits. LABORATORY DATA: None except for glucose, which is ranging from 118 to 159. IMPRESSION: 1. Postoperative day #23, status post antrectomy and gastrojejunostomy. 2. Abdominal abscess, status post drain. 3. Acute respiratory failure with hypoxia, resolved. 4. Anemia due to acute blood loss, status post transfusion of multiple PRBCs. 5. Duodenal ulcer perforation, status post total parenteral nutrition. 6. Empyema of the lung, status post thoracotomy with decortication. 7. Diabetes mellitus type 2. 8. Status post pneumonia and completion of course of linezolid and Zosyn. PLAN: She is doing well, she is tolerating her food, and we are trying to arrange longterm facility transfer and as soon as this is available, she will be transferred. Job ID: [id number]
--- NOTE | 2019-02-17 16:19 | PDOC.GSPN ---
Surgery Progress Note: Subj - Subjective Patient reports: no new complaints (Tolerated regular food.) Surgery Progress Note: Obj - Vital signs Vital signs: Vital Signs - Most Recent Temp Pulse Resp BP Pulse Ox 97.8 F 92 18 129/78 94 L 02/17/19 07:27 02/17/19 09:05 02/17/19 07:27 02/17/19 09:06 02/17/19 07:27 - Physical Exam General: no distress Cardiovascular: regular rate and rhythm Respiratory: clear to auscultation Abdomen: soft, non tender, nondistended Wound: other (The incision is well healed.) Surgery Progress Note: Results - Labs Result Diagrams: 02/11/19 04:28 02/11/19 04:28 Lab results: Laboratory Results - last 24 hr 02/17/19 02/17/19 04:51 11:52 POC Glucose 118 H 159 H Surgery Progress Note: A/P - Problem (1) Perforated duodenal ulcer with hemorrhage Current Visit: Yes Code(s): K26.6 - CHRONIC OR UNSP DUODENAL ULCER W BOTH HEMORRHAGE AND PERF Status: Acute - Plan Plan: She is doing very well. Tolerating regular diet. -She is close to being ready for DC. I recommend she stay till Wednesday. She will go home with the drain in place. I will write instructions for teaching how to flush the drain -Return to my office in 2 weeks. Will arrange outpatient CT scan
[2019-02-17] MEDS: Zolpidem Tartrate 5 MG TAB PO PRN (20:40)
[2019-02-17] MEDS: Enoxaparin Sodium 40 MG/0.4 ML SYRINGE SC SCH (20:42)
[2019-02-18] MEDS: Acetaminophen 325 MG TAB PO PRN ×2 (01:46→20:09)
[2019-02-18] MEDS: traMADol HCl 50 MG TAB PO PRN ×3 (01:46→15:29)
--- NOTE | 2019-02-18 09:30 | PRG ---
DATE OF SERVICE: 02/18/2019 SUBJECTIVE: The patient is seen and examined at the bedside. She does not have much complaints to offer except for that she got Ambien last night and she is very sleepy and drowsy this morning. Her appetite is fair. She is participating in physical therapy. OBJECTIVE: VITAL SIGNS: Blood pressure is 144/81, temperature 97.8, pulse 86, respirations 17, O2 saturation is 97% on room air. HEAD: Atraumatic and normocephalic. Eyes are PERRLA. Sclerae are nonicteric. Oral mucosa is moist. NECK: Supple. LUNGS: Clear. HEART: S1, S2 normal. No S3. No S4. ABDOMEN: Soft and nontender. The drain is in place. Bowel sounds present. EXTREMITIES: No clubbing, cyanosis, or edema. NEUROLOGIC: She is alert and oriented x4. There are no any motor deficits. LABORATORY DATA: None. We will get CBC and BMP since we did not have labs done for quite some time. IMPRESSION: 1. Duodenal ulcer perforation. 2. Empyema of the lungs, status post thoracotomy and decortication. 3. Diabetes mellitus. 4. Status post pneumonia. 5. Acute respiratory failure, resolved. 6. Abdominal abscess. PLAN: The patient was seen by general surgeon yesterday, and we will continue her drain. She will be discharged with it. We are trying to obtain detention facility because she lives alone and she will not be able to function by herself. She is still quite weak and she has problems with transferring. If she is approved, we will send her to the skilled unit for PT and OT and if she is not in the next probably few days, she can go home. We will continue PT and OT for now. Job ID: [id number]
[2019-02-18] MEDS: Gabapentin 300 MG CAP PO SCH ×3 (09:54→20:07)
[2019-02-18] MEDS: Amlodipine 10 MG TAB PO SCH (09:55)
[2019-02-18] MEDS: Magnesium Oxide 400 MG TAB PO SCH ×2 (09:55→20:08)
[2019-02-18] MEDS: Ferrous Sulfate 325 MG TAB PO SCH ×2 (09:55→15:29)
[2019-02-18] MEDS: Saccharomyces boulardii 250 MG CAP PO SCH (09:55)
[2019-02-18] MEDS: cloNIDine 0.2 MG TAB PO SCH ×2 (09:55→20:08)
[2019-02-18] MEDS: Insulin Glargine 5 UNITS in Pre-Filled Syringe SC SCH (09:55)
[2019-02-18] MEDS: diphenhydrAMINE 25 MG CAP PO PRN (12:58)
[2019-02-18] MEDS ORDERED: Ondansetron ODT 4 MG TAB PO PRN (17:24)
[2019-02-18] MEDS: Zolpidem Tartrate 5 MG TAB PO PRN (20:08)
[2019-02-18] MEDS: Enoxaparin Sodium 40 MG/0.4 ML SYRINGE SC SCH (20:10)
[2019-02-19] MEDS: Ferrous Sulfate 325 MG TAB PO SCH ×2 (08:57→16:12)
[2019-02-19] MEDS: diphenhydrAMINE 25 MG CAP PO PRN (08:57)
[2019-02-19] MEDS: traMADol HCl 50 MG TAB PO PRN ×2 (08:58→16:16)
[2019-02-19] MEDS: Gabapentin 300 MG CAP PO SCH ×3 (08:58→20:24)
[2019-02-19] MEDS: Magnesium Oxide 400 MG TAB PO SCH ×2 (09:02→20:25)
[2019-02-19] MEDS: Amlodipine 10 MG TAB PO SCH (09:02)
[2019-02-19] MEDS: cloNIDine 0.2 MG TAB PO SCH ×2 (09:02→20:25)
[2019-02-19] MEDS: Saccharomyces boulardii 250 MG CAP PO SCH (09:02)
[2019-02-19] MEDS: Insulin Glargine 5 UNITS in Pre-Filled Syringe SC SCH (09:09)
--- NOTE | 2019-02-19 11:01 | PRG ---
DATE OF SERVICE: SUBJECTIVE: The patient is seen and examined at the bedside. She is feeling good. She participates in her physical therapy. OBJECTIVE: VITAL SIGNS: Blood pressure is 124/74, pulse is 92, temperature is 98.2, respirations 16, O2 saturation is 92% on room air. HEENT: Her eyes are PERRLA. Sclerae are nonicteric. Oral mucosa is moist. NECK: Supple. LUNGS: Clear. HEART: S1, S2 normal. ABDOMEN: Soft. The drain is in place, draining clear yellow fluid, still significant volume for the last 24 hours. NEUROLOGIC: She is alert and oriented x4. There are no any motor deficits. LABORATORY DATA: Glycemia is ranging from 79 to 148. IMPRESSION: 1. Duodenal ulcer perforation. 2. Empyema of the lung, status post thoracotomy and decortication. 3. Diabetes mellitus, well controlled. 4. Status post pneumonia. 5. Acute respiratory failure, resolved. 6. Abdominal abscess, status post drainage. PLAN: No changes. Continue current regimen with PT. We are going to take the isolation off and she will be able to get out from the room and walk with PT. She just walks to the door and back a couple of times and that is not enough for her and we are trying to arrange detention facility when it is arranged. She will be transferred. Job ID: [id number]
[2019-02-19] MEDS: Acetaminophen 325 MG TAB PO PRN (20:24)
[2019-02-19] MEDS: Zolpidem Tartrate 5 MG TAB PO PRN (20:25)
[2019-02-19] MEDS: Enoxaparin Sodium 40 MG/0.4 ML SYRINGE SC SCH (20:27)
[2019-02-20] MEDS: Amlodipine 10 MG TAB PO SCH (08:39)
[2019-02-20] MEDS: Ferrous Sulfate 325 MG TAB PO SCH ×2 (08:39→16:24)
[2019-02-20] MEDS: Saccharomyces boulardii 250 MG CAP PO SCH (08:39)
[2019-02-20] MEDS: traMADol HCl 50 MG TAB PO PRN ×2 (08:40→16:23)
[2019-02-20] MEDS: Gabapentin 300 MG CAP PO SCH ×2 (08:40→16:24)
[2019-02-20] MEDS: cloNIDine 0.2 MG TAB PO SCH (08:41)
[2019-02-20] MEDS: Magnesium Oxide 400 MG TAB PO SCH (08:41)
[2019-02-20] MEDS: Insulin Glargine 5 UNITS in Pre-Filled Syringe SC SCH (08:42)
[2019-02-20] MEDS: fentaNYL 50 mcg/hour Patch TD SCH (09:36)
[2019-02-20] MEDS: diphenhydrAMINE 25 MG CAP PO PRN (10:30)
[2019-02-20 17:48] VITALS: BP 134/82; TEMP 98.1
== END 2019-02-20 17:23 | DRG 326 ==
LOC: ERS 18:37 → T4-B 22:31 → SURG A 12-25 21:30 → IMCU/EMU 01-02 01:24 → CCU 01-02 10:06 → SURG A 01-08 12:15 → CCU 01-19 09:10 → IMCU/EMU 01-21 15:44 → SURG B 01-24 09:04 → IMCU/EMU 01-26 08:47 → CCU 01-26 17:04 → IMCU/EMU 02-01 07:50 → T4-A 02-03 21:03
PROVIDERS: ADMIT Internal Medicine; ATTEND Internal Medicine
PROC: 0DT70ZZ Resection of Stomach, Pylorus, Open Approach (ICD-10-PCS; 2018-12-25)
PROC: 0D160ZA Bypass Stomach to Jejunum, Open Approach (ICD-10-PCS; 2018-12-25)
PROC: 3E0G8GC Introduction of Other Therapeutic Substance into Upper GI, Via Natural or Artificial Opening Endoscopic (ICD-10-PCS; 2018-12-25)
PROC: 0W3P8ZZ Control Bleeding in Gastrointestinal Tract, Via Natural or Artificial Opening Endoscopic (ICD-10-PCS; 2018-12-25)
PROC: 02HV33Z Insertion of Infusion Device into Superior Vena Cava, Percutaneous Approach (ICD-10-PCS; 2018-12-25)
PROC: 30233N1 Transfusion of Nonautologous Red Blood Cells into Peripheral Vein, Percutaneous Approach (ICD-10-PCS; 2018-12-25)
PROC: 0W3H0ZZ Control Bleeding in Retroperitoneum, Open Approach (ICD-10-PCS; 2018-12-29)
PROC: 0W9G00Z Drainage of Peritoneal Cavity with Drainage Device, Open Approach (ICD-10-PCS; 2018-12-29)
PROC: 3E0336Z Introduction of Nutritional Substance into Peripheral Vein, Percutaneous Approach (ICD-10-PCS; 2018-12-30)
PROC: 0BH17EZ Insertion of Endotracheal Airway into Trachea, Via Natural or Artificial Opening (ICD-10-PCS; 2019-01-02)
PROC: 5A1945Z Respiratory Ventilation, 24-96 Consecutive Hours (ICD-10-PCS; 2019-01-02)
PROC: 0W9G30Z Drainage of Peritoneal Cavity with Drainage Device, Percutaneous Approach (ICD-10-PCS; 2019-01-11)
PROC: 0W993ZX Drainage of Right Pleural Cavity, Percutaneous Approach, Diagnostic (ICD-10-PCS; 2019-01-18)
PROC: 02HV33Z Insertion of Infusion Device into Superior Vena Cava, Percutaneous Approach (ICD-10-PCS; 2019-01-18)
PROC: B548ZZA Ultrasonography of Superior Vena Cava, Guidance (ICD-10-PCS; 2019-01-18)
PROC: 0BJK4ZZ Inspection of Right Lung, Percutaneous Endoscopic Approach (ICD-10-PCS; 2019-01-26)
PROC: 0BCK0ZZ Extirpation of Matter from Right Lung, Open Approach (ICD-10-PCS; 2019-01-26)
PROC: 04HL33Z Insertion of Infusion Device into Left Femoral Artery, Percutaneous Approach (ICD-10-PCS; 2019-01-26)
PROC: 05H533Z Insertion of Infusion Device into Right Subclavian Vein, Percutaneous Approach (ICD-10-PCS; 2019-01-26)
PROC: 0W993ZX Drainage of Right Pleural Cavity, Percutaneous Approach, Diagnostic (ICD-10-PCS; 2019-01-26)
PROC: 0B918ZZ Drainage of Trachea, Via Natural or Artificial Opening Endoscopic (ICD-10-PCS; principal; 2019-01-27)
PROC: 0BC38ZZ Extirpation of Matter from Right Main Bronchus, Via Natural or Artificial Opening Endoscopic (ICD-10-PCS; 2019-01-27)
PROC: 0W9G30Z Drainage of Peritoneal Cavity with Drainage Device, Percutaneous Approach (ICD-10-PCS; 2019-01-27)
DX: K26.6 Chronic or unspecified duodenal ulcer with both hemorrhage and perforation (principal); J86.9 Pyothorax without fistula; K65.9 Peritonitis, unspecified; K85.90 Acute pancreatitis without necrosis or infection, unspecified; K65.1 Peritoneal abscess; G93.41 Metabolic encephalopathy; A41.9 Sepsis, unspecified organism; R65.20 Severe sepsis without septic shock; J69.0 Pneumonitis due to inhalation of food and vomit; J96.01 Acute respiratory failure with hypoxia; D62 Acute posthemorrhagic anemia; N17.9 Acute kidney failure, unspecified; J90 Pleural effusion, not elsewhere classified; K31.5 Obstruction of duodenum; J98.11 Atelectasis; N39.0 Urinary tract infection, site not specified; E11.40 Type 2 diabetes mellitus with diabetic neuropathy, unspecified; G89.4 Chronic pain syndrome; I10 Essential (primary) hypertension; E78.5 Hyperlipidemia, unspecified; G25.81 Restless legs syndrome; M19.90 Unspecified osteoarthritis, unspecified site; Z90.49 Acquired absence of other specified parts of digestive tract; R63.4 Abnormal weight loss; Z68.32 Body mass index [BMI] 32.0-32.9, adult; T17.990A Other foreign object in respiratory tract, part unspecified in causing asphyxiation, initial encounter; R00.0 Tachycardia, unspecified; R19.7 Diarrhea, unspecified; E66.9 Obesity, unspecified; E87.6 Hypokalemia; E83.42 Hypomagnesemia; R94.5 Abnormal results of liver function studies; E83.39 Other disorders of phosphorus metabolism; E11.65 Type 2 diabetes mellitus with hyperglycemia; R74.0 Nonspecific elevation of levels of transaminase and lactic acid dehydrogenase [LDH]; I16.0 Hypertensive urgency; B95.62 Methicillin resistant Staphylococcus aureus infection as the cause of diseases classified elsewhere; B96.1 Klebsiella pneumoniae [K. pneumoniae] as the cause of diseases classified elsewhere; J40 Bronchitis, not specified as acute or chronic; F41.9 Anxiety disorder, unspecified
CPT/HCPCS: 36415; 36416; 36430; 36569; 49020; 49060; 71045; 71260; 71275; 74150; 74177; 77012; 78226; 80048; 80053; 80061; 80202; 81003; 81015; 82140; 82150; 82247; 82274; 82805; 82941; 82945; 83615; 83630; 83690; 83735; 83986; 84100; 84134; 84157; 84439; 84443; 84478; 84484; 85007; 85025; 85027; 85060; 85379; 85610; 85730; 86850; 86900; 86901; 87045; 87046; 87070; 87077; 87081; 87116; 87186; 87205; 87206; 87324; 87449; 87899; 88112; 88305; 88307; 89051; 93005; 93010; 93306; 94002; 94003; 94640; 94660; 96365; 96366; A4217; A9537; C1729; C1751; C9113; J0131; J0171; J0360; J0692; J0694; J1170; J1200; J1642; J1644; J1650; J1815; J1885; J1940; J2001; J2020; J2060; J2185; J2250; J2270; J2354; J2405; J2543; J2550; J2704; J2765; J2920; J2997; J3010; J3370; J3475; J3480; J3490; J7050; J7620; J7626; P9016; Q0162; Q0163; Q9966; Q9967

== ENCOUNTER 2019-03-09 09:25 | Outpatient (CLI) | payer OTHER ==
--- NOTE | 2019-03-09 11:27 | CT ---
CT ABDOMEN AND PELVIS WITH CONTRAST: Comparison: 01-17-19, 01-26-19 History: History of duodenal shunt leak. History of cholecystectomy and hysterectomy. Technique: Multiple contiguous axial images were obtained in a CT of the abdomen and pelvis with cont rast. PO contrast was administered. Coronal reformats were performed. FINDINGS: There is a pigtail catheter in the right upper quadrant of the abdomen. The previously seen fluid col lection is not seen on today's examination. The gallbladder has been removed. The common bile duct is slightly prominent, which is likely a reservoir effect from prior cholecystectomy. No significant in trahepatic biliary dilatation is seen. No free air, free fluid, or stranding changes are seen in the abdomen or pelvis. The liver, kidneys, adrenal glands, spleen and pancreas are unremarkable. The large and small bowel are unremarkable. The patient is status post hysterectomy. No abdominal or pelvic lymphadenopathy are seen. Degenerative changes are seen through the spine. Visualized inferior thorax and abdominal wall soft t issues are unremarkable. IMPRESSION: Pigtail catheter is seen in the right upper quadrant of the abdomen. The previously seen fluid collec tion has been drained/resolved. POS: [facility]
[2019-03-09] MEDS ORDERED: ISOVUE-370 76%-LOCM 1 ML ONE (13:21)
== END 2019-03-09 09:26 | disposition home or self-care (01) ==
LOC: BICCT 09:25
PROVIDERS: ATTEND Surgery
DX: K91.89 Other postprocedural complications and disorders of digestive system (principal)
CPT/HCPCS: 74177

== ENCOUNTER 2019-05-23 20:17 | Inpatient (IN) | payer OTHER, SELFPAY ==
[~2019-05-23 20:17] MED LIST changes: -Heparin 1,000 UNITS/ML VIAL ONE; +Iopamidol 370 76% 50 ML VIAL FS ONE
[2019-05-23] MEDS ORDERED: Ondansetron PF 4 MG/2 ML Vial ONE (20:53)
[2019-05-23 21:16] LABS: #Lymphocytes 0.8 thou/uL (1.20-3.40); #Neutrophils 7.1 thou/uL (1.40-6.50); %Basophils 0.1 % (0.0-1.0); %Eosinophils 0.3 % (0.0-10.0); %Lymphocytes 10.2 % (21.0-51.0); %Monocytes 0.1 % (0.0-10.0); %Neutrophils 89.3 % (42.0-75.0); Hemoglobin 12.2 g/dL (12.0-16.0); Mean Corpuscular HGB CONC 33.4 g/dL (32.0-36.0); Mean Corpuscular Hemoglobin 29.6 pg (27.0-31.0); Mean Corpuscular Volume 88.4 fL (78.0-98.0); Mean Platelet Volume 8.8 fL (7.4-10.4); Platelet Count 339 thou/uL (130-400); RBC Distribution Width 13.3 % (11.5-14.5); Red Blood Cell (RBC) Count 4.13 mill/uL (4.20-5.40); White Blood Cell (WBC) Count 7.9 thou/uL (4.8-10.8)
[2019-05-23 21:24] LABS: Bilirubin Negative (Negative); Blood, Urine 2+ (Negative); Clarity Clear (Clear); Glucose, Urine (Dipstick) 70 mg/dL (Negative); Leukocyte Negative Leu/uL (Negative); Nitrite Negative (Negative); Protein, Urine (Dipstick) Negative (Neg-Trace); RBC/HPF Greater than 50 HPF (0-3); Squamous Epithelial 0-3 HPF (0-3); Urobilinogen Normal mg/dL (Less than 2)
[2019-05-23] MEDS ORDERED: Piperacillin/Tazobactam 4.5 GM VIAL ONE (21:25)
[2019-05-23 21:35] LABS: Bacteria/HPF 3+ HPF (None Seen)
[2019-05-23 21:40] LABS: ALT (SGPT) 166 U/L (8-55); AST (SGOT) 666 U/L (5-34); Albumin 4.3 g/dL (3.4-4.8); Alkaline Phosphatase 461 U/L (40-110); Anion Gap 17 mmol/L (10-20); BUN (Urea Nitrogen) 17 mg/dL (9.8-20.1); Bilirubin, Total 0.7 mg/dL (0.2-1.2); Calc. Creatinine Clearance 0 mL/min (70-130); Calcium 9.4 mg/dL (7.8-10.44); Carbon Dioxide 19 mmol/L (23-31); Chloride 106 mmol/L (98-107); Estimated GFR-MDRD 78; Globulin 3.7 g/dL (2.4-3.5); Glucose 199 mg/dL (80-115); Potassium 3.8 mmol/L (3.5-5.1); Sodium 138 mmol/L (136-145)
[2019-05-23 21:53] LABS: Lipase 1327 U/L (8-78)
[2019-05-23] MEDS ORDERED: Morphine 4 MG/ML VIAL ONE (22:39)
--- NOTE | 2019-05-23 23:29 | CT ---
ABDOMEN AND PELVIC CT WITH CONTRAST: 05/23/19 COMPARISON: 03/09/19 INDICATION: Generalized abdominal pain. FINDINGS: Mild volume loss and/or pneumonitis is seen at the lung bases. Correlate clinically. Prior percutaneo us drain has been removed from the right abdomen. There is biliary ductal prominence which may be rel ated to reservoir effect given absence of gallbladder. Slight interval increase in volume of the comm on duct. Intrahepatic biliary ductal dilatation has also progressed. Residual fat stranding of the ri ght upper quadrant is seen. Punctate hypodensities of the kidneys are too small to further character ize. No adrenal mass. Spleen is unremarkable. No significant interval change regarding the pancreas. Mild prominence of the pancreatic duct is similar. Bowel is incompletely assessed without enteric con trast. There is air filled, distended sigmoid colon. No pneumoperitoneum. IMPRESSION: 1. Biliary ductal prominence which may be related to reservoir effect given absence of the gallb ladder. Common duct measures 14 mm, compared to 12 mm on prior exam. There also has been development of intrahepatic biliary ductal dilatation. Residual fat stranding of the right upper quadrant does re main, although has decreased from prior exam. Correlate with biliary laboratory values to exclude a b iliary obstructive process. 2. Additional findings are detailed above. POS: [facility]
--- NOTE | 2019-05-24 00:58 | PDOC.EVN ---
Event Note - Event Note Event Note: [id number] HP
--- NOTE | 2019-05-24 01:50 | HP ---
CHIEF COMPLAINT: Abdominal pain. HISTORY OF PRESENT ILLNESS: Ms. Qureshi is a 63-year-old female, who had a small bowel resection about 3 months ago, presented to the emergency room with abdominal pain associated with nausea and vomiting. The patient has been having abdominal pain for the last week or so, but the symptoms got worse yesterday. Denies fever, or chills. Workup in the emergency room, the patient was found to have acute pancreatitis with a lipase more than 1000. Alkaline phosphatase is elevated. Total bilirubin is normal. The patient has a history of cholecystectomy. Imaging studies showed prominent bile ducts. ED physician consulted with GI. The patient remains tachycardic. The patient is being admitted to the hospital/[facility] for further management. PAST MEDICAL HISTORY: 1. Peptic ulcer disease. 2. Osteoarthritis. 3. Diabetes type 2. 4. Hypertension. 5. Osteoporosis. 6. Neuropathy. 7. Restless legs syndrome. PAST SURGICAL HISTORY: 1. Bowel resection. 2. Appendectomy. 3. Cholecystectomy. 4. Ulcer removed from stomach in December. SOCIAL HISTORY: Denies smoking, alcohol drinking, or drug abuse. FAMILY HISTORY: Reviewed and noncontributory. CURRENT HOME MEDICATIONS: Please see home medication reconciliation form for updated medications. ALLERGIES: ALLERGIC TO CIPRO. REVIEW OF SYSTEMS: Review of 14 systems negative except what is mentioned in the history of present illness. PHYSICAL EXAMINATION: VITAL SIGNS: Blood pressure 118/69, pulse is 102, respiratory rate is 23, pulse oximetry is 92% on room air. GENERAL: The patient is awake, alert, in moderate distress secondary to pain. HEAD AND NECK: Normocephalic, atraumatic. NECK: Supple. No JVD. CHEST: Fair bilateral air entry. HEART: S1, S2. Regular. ABDOMEN: Soft with epigastric tenderness. Bowel sounds present. NEUROLOGIC: Awake, alert, oriented x3. PSYCHIATRIC: Normal mood. EXTREMITIES: No clubbing, no cyanosis. LABORATORY DATA: As mentioned above in the history of present illness, AST 666, ALT 166, alkaline phosphatase 461. Glucose 199. Troponin is 0.01. Lactic acid 3.1. Lipase elevated at 1327. ASSESSMENT: 1. Acute pancreatitis. 2. Transaminitis. 3. Prominent bile duct-dilated. 4. History of cholecystectomy. 5. Diabetes mellitus, hyperglycemia. PLAN: 1. Admit. 2. Keep n.p.o. 3. IV fluids. 4. Pain management. 5. GI consult for evaluation and further management. 6. Reconcile home medications. 7. Deep venous thrombosis prophylaxis as appropriate. 8. Gastrointestinal prophylaxis. 9. Expected length of stay, 2 midnights or more. Job ID: [id number]
[2019-05-24 02:35] LABS: Hemoglobin 11.3 g/dL (12.0-16.0); Mean Corpuscular HGB CONC 33.7 g/dL (32.0-36.0); Mean Corpuscular Hemoglobin 29.8 pg (27.0-31.0); Mean Corpuscular Volume 88.6 fL (78.0-98.0); Mean Platelet Volume 8.5 fL (7.4-10.4); Platelet Count 304 thou/uL (130-400); RBC Distribution Width 13.4 % (11.5-14.5); Red Blood Cell (RBC) Count 3.78 mill/uL (4.20-5.40); White Blood Cell (WBC) Count 16.2 thou/uL (4.8-10.8)
[2019-05-24 02:48] LABS: Lactic Acid 7.4 mmol/L (0.5-2.2)
[2019-05-24] MEDS: Sodium Chloride 0.9% 1,000 ML IV SCH ×3 (02:53→23:56)
[2019-05-24 03:00] LABS: Band 37 % (5-11); Lymphocytes 8 % (21-51); MDiff Complete? YES; Monocytes 4 % (0-10); Neutrophil 51 % (42-75)
[2019-05-24 03:10] VITALS: BMI 25.4
[2019-05-24] MEDS ORDERED: PARoxetine 20 MG TAB ONE (03:54)
[2019-05-24] MEDS: Piperacillin/Tazobactam 3.375 GM in Sodium Chloride 0.9% 100 ML IVPB SCH ×4 (05:35→23:56)
[2019-05-24 06:07] LABS: #Lymphocytes 0.9 thou/uL (1.20-3.40); #Monocytes 0.9 thou/uL (0.11-0.59); #Neutrophils 16.6 thou/uL (1.40-6.50); %Basophils 0.1 % (0.0-1.0); %Eosinophils 0.1 % (0.0-10.0); %Lymphocytes 5.1 % (21.0-51.0); %Monocytes 4.8 % (0.0-10.0); Hemoglobin 10.5 g/dL (12.0-16.0); Mean Corpuscular Hemoglobin 29.9 pg (27.0-31.0); Mean Corpuscular Volume 87.8 fL (78.0-98.0); Mean Platelet Volume 8.6 fL (7.4-10.4); Platelet Count 289 thou/uL (130-400); RBC Distribution Width 13.4 % (11.5-14.5); Red Blood Cell (RBC) Count 3.52 mill/uL (4.20-5.40); White Blood Cell (WBC) Count 18.4 thou/uL (4.8-10.8)
[2019-05-24 06:26] LABS: ALT (SGPT) 256 U/L (8-55); AST (SGOT) 588 U/L (5-34); Albumin 3.5 g/dL (3.4-4.8); Alkaline Phosphatase 341 U/L (40-110); Anion Gap 12 mmol/L (10-20); BUN (Urea Nitrogen) 9 mg/dL (9.8-20.1); Bilirubin, Direct 0.9 mg/dL (0.1-0.3); Bilirubin, Total 1.2 mg/dL (0.2-1.2); Calc. Creatinine Clearance 69 mL/min (70-130); Calcium 8.6 mg/dL (7.8-10.44); Carbon Dioxide 22 mmol/L (23-31); Cardiac Risk 3.4 (Less than 4.5); Chloride 112 mmol/L (98-107); Cholesterol 137 mg/dl (< 200 Desired); Estimated GFR-MDRD Greater than 90; Globulin 3.1 g/dL (2.4-3.5); Glucose 108 mg/dL (80-115); HDL Cholesterol 40 mg/dL (>60 Neg Risk); LDL Cholesterol, Calculated 81 mg/dL; Lipase 124 U/L (8-78); Protein, Total 6.6 g/dL (6.0-8.3); Sodium 143 mmol/L (136-145); Triglycerides 80 mg/dL (Less than 150)
[2019-05-24 06:28] LABS: Lactic Acid 0.9 mmol/L (0.5-2.2)
[2019-05-24] MEDS ORDERED: FLU VACC QS2019-20(6MOS UP)/PF 60 MCG/0.5 ML SYRINGE IM ONE (09:00)
[2019-05-24] MEDS ORDERED: Potassium Chloride 40 MEQ in Premix Bag 1 BAG IVPB SCH (09:45)
[2019-05-24] MEDS: Famotidine/PF 20 mg/2ml Vial SLOW IVP SCH ×2 (09:53→20:16)
[2019-05-24] MEDS: Promethazine HCl 25 MG/ML VIAL IM PRN ×2 (10:12→13:52)
--- NOTE | 2019-05-24 10:52 | CON ---
DATE OF CONSULTATION: 05/24/2019 REASON FOR CONSULTATION: IMCU placement. HISTORY OF PRESENT ILLNESS: The patient is a pleasant 63-year-old female, who was admitted last night with severe pancreatitis. She developed abdominal pain yesterday and had some nausea and vomiting. She had to have extensive small bowel resection about 3 months ago related to ulcer surgery. She feels better today after hydration and has just having some mild abdominal pain at this point. PAST MEDICAL HISTORY: 1. Peptic ulcer disease. 2. Osteoarthritis. 3. Diabetes mellitus type 2. 4. Hypertension. 5. Osteoporosis. 6. Neuropathy. 7. Restless legs syndrome. PAST SURGICAL HISTORY: 1. Bowel resection. 2. Appendectomy. 3. Cholecystectomy, open. 4. Ulcer surgery on stomach. SOCIAL HISTORY: Nonsmoker. Does not consume alcohol. Does not use illicit drugs. FAMILY MEDICAL HISTORY: Unremarkable. ALLERGIES: CIPRO. REVIEW OF SYSTEMS: Twelve-point review of systems is otherwise negative. OUTPATIENT MEDICATIONS: 1. Belbuca. 2. Ropinirole. 3. Clonidine. 4. Protonix. 5. Norvasc. 6. Glucophage. 7. Ultram. 8. Lyrica. PHYSICAL EXAMINATION: VITAL SIGNS: Temperature 98.6, pulse 77, blood pressure 139/66, O2 saturation 100%, and respiratory rate 10. GENERAL: She is awake, alert, and in no distress. HEENT: Pupils react. Sclerae icteric. Oropharynx clear. NECK: No adenopathy or JVD. LUNGS: Clear to auscultation. No wheezing or rhonchi. CARDIAC: S1 and S2. Regular without audible murmur. ABDOMEN: She has some mild midepigastric tenderness to deep palpation. No rebound tenderness. She has an old open cholecystectomy scar and old midline laparotomy scar. She has no palpable masses. No visible bruising. EXTREMITIES: No clubbing, cyanosis, or edema. She has severe muscle wasting. NEUROLOGIC: Nonfocal. LABORATORY DATA: Sodium 143, potassium 3.0, chloride 112, CO2 of 22, BUN 9, creatinine 0.6, glucose 108, lactate 0.9, AST 588, ALT 256, albumin 3.5, and lipase [address] of the abdomen and pelvis demonstrated some intrahepatic biliary ductal dilatation. ASSESSMENT: 1. Pancreatitis. 2. Transaminitis. RECOMMENDATION: 1. I would recommend GI consultation. 2. Continue antibiotics, IV fluids, and n.p.o. status. 3. She can transfer out to the medical floor as she has no need for intermediate care at this point. 4. Potassium will be replaced. Job ID: [id number]
[2019-05-24] MEDS: Meperidine HCl/PF 25 MG/ML VIAL SLOW IVP PRN ×2 (13:43→18:18)
--- NOTE | 2019-05-24 15:18 | PDOC.HOSPP ---
- Subjective Encounter Date: 05/24/19 Encounter Time: 15:10 Subjective: f/u for acute pancreatitis, cholangitis likely due to CBD obstruction for bile sludge. Receiving IVF's, pain control and nursing reports tachycardia. - Objective Vital Signs & Weight: Vital Signs (12 hours) Temp Pulse Ox 05/24/19 11:20 98.4 F 05/24/19 08:00 98 05/24/19 07:19 98.6 F 05/24/19 04:11 98.9 F Weight Weight 105 lb 6.4 oz Most Recent Monitor Data Heart Rate from ECG 138 NIBP 174/94 NIBP BP-Mean 120 Respiration from ECG 30 SpO2 97 I&O: 05/23/19 05/24/19 05/25/19 06:59 06:59 06:59 Intake Total 600 Output Total 1350 Balance 600 -1350 Result Diagrams: 05/24/19 05:41 05/24/19 05:41 Additional Labs: Microbiology 01/27/19 13:30 Abdomen - Abscess Bacterial Culture - Preliminary Staphylococcus aureus Klebsiella pneumoniae ssp pneu Laboratory Tests 01/18/19 01/19/19 01/20/19 05:08 05:30 07:39 WBC Hgb 6.2 L 8.3 L 9.0 L Neutrophils % Band Neuts % (Manual) Sodium Potassium Lactic Acid Phosphorus Magnesium AST ALT Alkaline Phosphatase Triglycerides Lipase 01/21/19 01/23/19 01/27/19 03:50 04:24 04:04 WBC 12.4 H Hgb 8.1 L 10.2 L Neutrophils % Band Neuts % (Manual) Sodium 146 H Potassium 3.1 L Lactic Acid Phosphorus Magnesium AST ALT Alkaline Phosphatase Triglycerides Lipase 01/29/19 01/29/19 01/30/19 03:30 03:40 05:08 WBC Hgb Neutrophils % Band Neuts % (Manual) Sodium 143 143 Potassium 4.0 2.9 L* Lactic Acid Phosphorus 3.8 Magnesium 1.5 L 1.9 AST ALT Alkaline Phosphatase Triglycerides Lipase 01/31/19 05/23/19 05/23/19 05:00 20:53 20:53 WBC 7.9 Hgb Neutrophils % 89.3 H Band Neuts % (Manual) Sodium Potassium 3.8 Lactic Acid Phosphorus Magnesium 1.4 L AST 666 H ALT 166 H Alkaline Phosphatase 461 H Triglycerides Lipase 1327 H 10/05/24/19 05/24/19 20:53 01:59 01:59 WBC 16.2 H Hgb Neutrophils % Band Neuts % (Manual) 37 H Sodium Potassium Lactic Acid 3.1 H 7.4 H* Phosphorus Magnesium AST ALT Alkaline Phosphatase Triglycerides Lipase 05/24/19 05/24/19 05/24/19 05:41 05:41 05:41 WBC Hgb Neutrophils % 90.0 H Band Neuts % (Manual) Sodium Potassium Lactic Acid 0.9 Phosphorus Magnesium AST 588 H ALT 256 H Alkaline Phosphatase 341 H Triglycerides 80 Lipase 124 H Radiology Reviewed by me: Yes (CT abd/pel - CBD 1.4cm, fat stranding, biliary duct dilation) EKG Reviewed by me: Yes (Tele - sinus tachycardia) Hospitalist ROS - Medication Medications: Active Medications Generic Name Dose Route Start Last Admin Trade Name Freq PRN Reason Stop Dose Admin Famotidine 20 mg 05/24/19 09:00 05/24/19 09:53 Pepcid SLOW IVP 20 mg BID HANNAH Administration Sodium Chloride 1,000 mls @ 125 mls/hr 05/24/19 00:30 05/24/19 13:45 Normal Saline 0.9% IV 1,000 mls .Q8H HANNAH Administration Piperacillin Sod/Tazobactam 100 mls @ 200 mls/hr 05/24/19 06:00 05/24/19 13: 45 Sod 3.375 gm/ Sodium Chloride IVPB 100 mls Q6HR HANNAH Administration Meperidine HCl 25 mg 05/24/19 00:22 05/24/19 13:43 Demerol SLOW IVP 25 mg Q3H PRN Administration Severe Pain (7-10) Promethazine HCl 12.5 mg 05/24/19 00:22 05/24/19 13:52 Phenergan IM 12.5 mg Q4H PRN Administration Nausea/Vomiting - Exam General Appearance: NAD, awake alert Eye: PERRL, anicteric sclera ENT: normocephalic atraumatic, no oropharyngeal lesions Neck: supple, symmetric, no JVD, no thyromegaly, no lymphadenopathy Heart: no murmur, no gallops, no rubs, normal peripheral pulses Heart - other findings: tachycardic Respiratory: CTAB, no wheezes, no rales, no ronchi, normal chest expansion Gastrointestinal: soft, non-distended, no palpable masses Gastrointestinal - other findings: mid-epigastric TTP Extremities: no cyanosis, no edema Skin: normal turgor, no lesions Neurological: cranial nerve grossly intact, no new deficit Hosp A/P (1) Acute pancreatitis Code(s): K85.90 - ACUTE PANCREATITIS WITHOUT NECROSIS OR INFECTION, UNSP Status: Acute Plan: Likely due to biliary sludge, transient obstruction, continue supportive mgmt, IVF's, Pain control, plan for coordination of transfer to higher level of care as GI service unable to perform ERCP locally given anatomical variation s/p gastrojejunostomy (2) Tachycardia Code(s): R00.0 - TACHYCARDIA, UNSPECIFIED Status: Acute Plan: Likely due to rebound tachycardia, resume Amlodipine/Clonidine, telemetry monitoring (3) Lactic acidosis Code(s): E87.2 - ACIDOSIS Status: Acute Plan: Secondary to #1, continue monitoring, continue empiric IV abx (4) Diabetes type 2, controlled Code(s): E11.9 - TYPE 2 DIABETES MELLITUS WITHOUT COMPLICATIONS Status: Chronic Qualifiers: 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
[2019-05-24] MEDS ORDERED: HumaLOG 300 UNITS/3 ML VIAL SC PRN ×2 (15:27)
[2019-05-24] MEDS ORDERED: Dextrose 50% Abboject 50 ML SYRINGE SLOW IVP PRN (15:27)
[2019-05-24] MEDS ORDERED: Dextrose 5% in Water 1,000 ML IV PRN (15:27)
[2019-05-24] MEDS ORDERED: Amlodipine 10 MG TAB PO SCH (15:30)
[2019-05-24] MEDS ORDERED: Promethazine HCl 25 MG/ML VIAL IVPB PRN (15:36)
[2019-05-24] MEDS ORDERED: Pregabalin 75 MG CAP PO SCH ×2 (15:45→21:00)
[2019-05-24] MEDS: Pregabalin 75 MG CAP PO SCH (20:15)
[2019-05-24] MEDS: rOPINIRole HCl 0.5 MG TAB PO SCH (20:16)
[2019-05-24] MEDS: cloNIDine 0.2 MG TAB PO SCH (20:26)
[2019-05-25] MEDS: Meperidine HCl/PF 25 MG/ML VIAL SLOW IVP PRN ×2 (03:04→11:29)
[2019-05-25] MEDS: Piperacillin/Tazobactam 3.375 GM in Sodium Chloride 0.9% 100 ML IVPB SCH ×3 (06:03→18:18)
[2019-05-25 06:10] LABS: Band 4 % (5-11); Eosinophils 1 % (0-10); Hemoglobin 11.2 g/dL (12.0-16.0); Lymphocytes 15 % (21-51); MDiff Complete? YES; Mean Corpuscular HGB CONC 32.9 g/dL (32.0-36.0); Mean Corpuscular Hemoglobin 28.9 pg (27.0-31.0); Mean Corpuscular Volume 87.9 fL (78.0-98.0); Mean Platelet Volume 8.9 fL (7.4-10.4); Monocytes 4 % (0-10); Neutrophil 76 % (42-75); Platelet Count 295 thou/uL (130-400); RBC Distribution Width 13.6 % (11.5-14.5); White Blood Cell (WBC) Count 9.8 thou/uL (4.8-10.8)
[2019-05-25 06:19] LABS: ALT (SGPT) 155 U/L (8-55); AST (SGOT) 136 U/L (5-34); Albumin 3.7 g/dL (3.4-4.8); Alkaline Phosphatase 294 U/L (40-110); Anion Gap 13 mmol/L (10-20); BUN (Urea Nitrogen) 6 mg/dL (9.8-20.1); Bilirubin, Total 1.2 mg/dL (0.2-1.2); Calc. Creatinine Clearance 74 mL/min (70-130); Calcium 8.4 mg/dL (7.8-10.44); Carbon Dioxide 22 mmol/L (23-31); Chloride 108 mmol/L (98-107); Estimated GFR-MDRD Greater than 90; Globulin 3.4 g/dL (2.4-3.5); Glucose 89 mg/dL (80-115); Protein, Total 7.1 g/dL (6.0-8.3); Sodium 140 mmol/L (136-145)
[2019-05-25 06:23] LABS: Potassium 2.8 mmol/L (3.5-5.1)
[2019-05-25] MEDS ORDERED: Potassium Chloride 10 MEQ in Premix Bag 1 BAG IVPB SCH (07:00)
--- NOTE | 2019-05-25 09:00 | CON ---
DATE OF CONSULTATION: 05/24/2019 REFERRING DOCTOR: [facility]. REASON FOR CONSULTATION: Abdominal pain, pancreatitis, abnormal LFTs. HISTORY OF PRESENT ILLNESS: Maisha Qureshi is a very pleasant 63-year-old female, who is known to me from before. The patient was originally seen by me in 2018 because of abdominal pain, black tarry stool. She had an EGD done, which showed multiple gastric ulcers. She had large ulcer in the pyloric channel and also another necrotic ulcer in the duodenal bulb. The patient was taking NSAIDs at that time. She was advised to stop taking NSAIDs and not taking aspirin. She was placed on pantoprazole. She returned back to the hospital in October of 2018, with recurrence of bleeding. She had an EGD done, which revealed healing of all the gastric ulcers, but she has had a small ulcer over the bulb of the duodenum. She underwent heater probe therapy and did well. She returned back a month later when Dr. Balta John was garden consultant. She came back with upper GI bleeding again. An EGD was performed by Dr. John, that revealed a very small ulcer measuring approximately 6 mm at the junction of the bulb, duodenal sweep. She underwent injection of epinephrine. She did well. At that time, she had active bleeding seen. negative. She was sent home on PPI. She came back again in December of 2018, when Dr. Bert Avendano was on-call. She underwent EGD by Dr. Avendano and was found to have stricture of the duodenum and also a small ulcer. She underwent an injection of epinephrine and also BICAP therapy. The patient developed severe abdominal pain postprocedure and was found to have perforated ulcer disease. She underwent surgery by Dr. Ramos Morgan and she had antrectomy and also gastrojejunostomy. She developed multiple problems subsequently after surgery. She was in hospital from December of 2018 until 03/20/2019. She had peritonitis and she has had washout and also has had intrabdominal abscess drained. She also developed empyema, was seen by Dr. Jose Guadalupe Delong and underwent decortication. She was also seen by Pulmonary Medicine for various problems. The patient was subsequently sent home approximately 7 or 8 weeks ago. The patient had abdominal pain over the last couple of weeks. The pain is over the epigastric area. At the beginning, the pain was mild. The pain also did go to the back posteriorly. She has also had nausea. The symptoms were mild at beginning, but symptoms got lot worse yesterday. She came to the ER and had an evaluation done. On admission, she was found to have markedly elevated lipase of more than 1327. Interestingly, the lipase is back to normal. However, she continued to have abdominal pain. The pain is over the epigastric area going toward the back. She also has some nausea and she vomited one time today. She has had no fever or chills. The patient was found to have evidence of pancreatitis in the ER and also has abnormal LFTs. She had abdominal CAT scan, which revealed dilation of the CBD and also intrahepatic ducts. She has had open cholecystectomy many years ago. She had a CAT scan done in March of 2019, which revealed mild dilation of the CBD, but no intrahepatic ductal dilation. At that time, she had normal LFTs. Now, the LFTs have really bumped up. Her bowel movements are regular. No evidence of any hematochezia or any melena. Her appetite has been poor for the last couple of weeks. No relevant history. ALLERGIES: ALLERGIC TO CIPRO. SOCIAL HISTORY: The patient does not smoke or drink alcohol. MEDICAL ILLNESSES: 1. Recurrent peptic ulcer from July of 2018 and had multiple gastric ulcers and ulcer in the pyloric channel, also large ulcer in the duodenal bulb. 2. Osteoarthritis. 3. History of back pain. 4. Diabetes type 2. 5. Hypertension. 6. Osteoporosis. 7. Peripheral neuropathy. 8. Restless legs syndrome. PAST SURGICAL HISTORY: 1. Status post antrectomy and gastrojejunostomy. 2. Appendectomy. 3. Open cholecystectomy. 4. Multiple EGDs/colonoscopy over the last 18 months. 5. She also has had decortication of the right lung because of empyema and also has had drainage of the abdominal abscess percutaneously during last admission. MEDICATION LIST: Reviewed. REVIEW OF SYSTEMS: Ten-point system review reveals abdominal pain, nausea, vomiting, and poor appetite. PHYSICAL EXAMINATION: GENERAL: She appears to be in moderate discomfort. VITAL SIGNS: Pulse is 120, blood pressure is 170/97. Afebrile. HEENT: Conjunctivae clear. NECK: Supple. No adenitis or thyromegaly noted. CARDIOVASCULAR: First and second heart sounds heard. LUNGS: Clear to auscultation. ABDOMEN: Soft and flat and not distended. Abdomen is tender predominantly in the epigastric area area. There is no rebound or guarding. Her bowel sounds are active. EXTREMITIES: Revealed no edema. LABORATORY DATA: Shows WBC on admission was 7900, today it has gone up to 16,800 and to 18,400; hemoglobin is 10.5 today; hematocrit 30.9; MCV 87.8; platelet count 289,000. She has polymorphs of 90, lymphocytes 5.1, eosinophils 4.8. One of the CBC done at 2 o'clock this morning showed bandemia of 37%, but repeat one shows no bandemia. Chemistry panel; lipase is markedly elevated to 1300, but the lipase is back to normal today. Liver function tests are markedly abnormal. The AST yesterday was 666, ALT 166, alkaline phosphatase 461. Today, AST is 588, alkaline phosphatase is 341, ALT is 256. Lactic acid 0.9 today, which was 7.4 yesterday; calcium 8.6. Chem-7; potassium 3, chloride 112, bicarb is 22, glucose 108, lipase close to baseline at 124. Abdominal CAT scan done showed dilation of the common bile duct and also intrahepatic bile duct. CAT scan done did show mild dilation of CBD, but no intrahepatic duct dilation. She had a liver function test normal at that time. CLINICAL IMPRESSION: 1. Acute pancreatitis, etiology unclear. She has had previous open cholecystectomy many years ago. Her liver function always all elevated, indicative of possibly a stricture versus bile duct stone. 2. Recurrent peptic ulcer with bleeding over the course of 12 months and had a perforated duodenal ulcer disease in December of 2018 and she had a very complicated course of surgery. 3. Hypertension. 4. Diabetes mellitus. 5. Restless legs syndrome. 6. Chronic back pain. RECOMMENDATION: As follows, 1. Agree with IV fluids and IV antibiotics. 2. Continue analgesics. 3. [facility] . This was conveyed to Dr. Jose Anderson and we will make arrangements for her to be transferred to a place where the endoscopist can do an ERCP. Job ID: [id number]
[2019-05-25] MEDS: Sodium Chloride 0.9% 1,000 ML IV SCH ×3 (09:34→21:13)
[2019-05-25] MEDS: Pregabalin 75 MG CAP PO SCH ×3 (09:35→21:06)
[2019-05-25] MEDS: Famotidine/PF 20 mg/2ml Vial SLOW IVP SCH ×2 (09:35→21:07)
[2019-05-25] MEDS: Amlodipine 10 MG TAB PO SCH (09:35)
[2019-05-25] MEDS: Potassium Chloride 20 MEQ TAB PO SCH (09:35)
[2019-05-25] MEDS: cloNIDine 0.2 MG TAB PO SCH ×2 (09:35→21:06)
--- NOTE | 2019-05-25 09:49 | PRG ---
DATE OF SERVICE: 05/25/2019 SUBJECTIVE: This morning, the patient is awake, alert, and responsive. No pain or discomfort. She is recently discharged from the hospital after the prolonged hospitalization. She underwent upper GI endoscopy yesterday. No coughing or wheezing. No shortness of breath. OBJECTIVE: GENERAL: She is awake, alert, responsive. VITAL SIGNS: Sats are 100% on room air, blood pressure 163/83, respiratory rate 18. CHEST: No wheezing or crackles. CARDIAC: Normal S1 and S2. No gallops. ABDOMEN: No mass. LABORATORY DATA: Liver function is elevated. IMPRESSION: Pancreatitis, recent prolonged hospitalization for multiorgan failure, and severe deconditioning. Status post decortication, status post lap. Pulmonary mauricio, she is much improved. Continue Protonix. Continue supportive care. Await input from GI. Job ID: [id number]
--- NOTE | 2019-05-25 11:59 | PDOC.HOSPP ---
- Subjective Encounter Date: 05/25/19 Encounter Time: 11:45 Subjective: f/u for acute pancreatitis and transient biliary obstruction likely due to bile sludge or potentially passed stone. Overall feeling better today with minimal abd pain. Tolerating sips of H2O and juice. - Objective Vital Signs & Weight: Vital Signs (12 hours) Temp BP Pulse Ox 05/25/19 09:35 163/89 H 05/25/19 07:27 99 05/25/19 04:08 98.6 F Weight Weight 105 lb 6.4 oz Most Recent Monitor Data Heart Rate from ECG 100 NIBP 164/86 NIBP BP-Mean 112 Respiration from ECG 19 SpO2 100 I&O: 05/24/19 05/25/19 05/26/19 06:59 06:59 06:59 Intake Total 600 3539 Output Total 2650 Balance 600 889 Result Diagrams: 05/25/19 05:24 05/25/19 05:24 Additional Labs: Accuchecks 05/25/19 06:05 POC Glucose 85 Microbiology 01/27/19 13:30 Abdomen - Abscess Bacterial Culture - Preliminary Staphylococcus aureus Klebsiella pneumoniae ssp pneu Laboratory Tests 01/18/19 01/19/19 01/20/19 05:08 05:30 07:39 WBC Hgb 6.2 L 8.3 L 9.0 L Neutrophils % Neutrophils % (Manual) Band Neuts % (Manual) Sodium Potassium Lactic Acid Phosphorus Magnesium AST ALT Alkaline Phosphatase Triglycerides Lipase 01/21/19 01/23/19 01/27/19 03:50 04:24 04:04 WBC 12.4 H Hgb 8.1 L 10.2 L Neutrophils % Neutrophils % (Manual) Band Neuts % (Manual) Sodium 146 H Potassium 3.1 L Lactic Acid Phosphorus Magnesium AST ALT Alkaline Phosphatase Triglycerides Lipase 01/29/19 01/29/19 01/30/19 03:30 03:40 05:08 WBC Hgb Neutrophils % Neutrophils % (Manual) Band Neuts % (Manual) Sodium 143 143 Potassium 4.0 2.9 L* Lactic Acid Phosphorus 3.8 Magnesium 1.5 L 1.9 AST ALT Alkaline Phosphatase Triglycerides Lipase 01/31/19 05/23/19 05/23/19 05:00 20:53 20:53 WBC 7.9 Hgb Neutrophils % 89.3 H Neutrophils % (Manual) Band Neuts % (Manual) Sodium Potassium 3.8 Lactic Acid Phosphorus Magnesium 1.4 L AST 666 H ALT 166 H Alkaline Phosphatase 461 H Triglycerides Lipase 1327 H 05/23/19 05/24/19 05/24/19 20:53 01:59 01:59 WBC 16.2 H Hgb Neutrophils % Neutrophils % (Manual) Band Neuts % (Manual) 37 H Sodium Potassium Lactic Acid 3.1 H 7.4 H* Phosphorus Magnesium AST ALT Alkaline Phosphatase Triglycerides Lipase 05/24/19 05/24/19 05/24/19 05:41 05:41 05:41 WBC 18.4 H Hgb 10.5 L Neutrophils % 90.0 H Neutrophils % (Manual) Band Neuts % (Manual) Sodium Potassium Lactic Acid 0.9 Phosphorus Magnesium AST 588 H ALT 256 H Alkaline Phosphatase 341 H Triglycerides 80 Lipase 124 H 05/25/19 05/25/19 05:24 05:24 WBC Hgb Neutrophils % Neutrophils % (Manual) 76 H Band Neuts % (Manual) Sodium Potassium Lactic Acid Phosphorus Magnesium AST 136 H ALT 155 H Alkaline Phosphatase 294 H Triglycerides Lipase EKG Reviewed by me: Yes (Tele - Sinus in 's) Hospitalist ROS - Medication Medications: Active Medications Generic Name Dose Route Start Last Admin Trade Name Freq PRN Reason Stop Dose Admin Amlodipine Besylate 10 mg 05/25/19 09:00 05/25/19 09:35 Norvasc PO 10 mg DAILY HANNAH Administration Clonidine 0.2 mg 05/24/19 21:00 05/25/19 09:35 Catapres PO 0.2 mg BID HANNAH Administration Famotidine 20 mg 05/24/19 09:00 05/25/19 09:35 Pepcid SLOW IVP 20 mg BID HANNAH Administration Sodium Chloride 1,000 mls @ 125 mls/hr 05/24/19 00:30 05/25/19 09:34 Normal Saline 0.9% IV 1,000 mls .Q8H HANNAH Administration Piperacillin Sod/Tazobactam 100 mls @ 200 mls/hr 05/24/19 06:00 05/25/19 11: 29 Sod 3.375 gm/ Sodium Chloride IVPB 100 mls Q6HR HANNAH Administration Meperidine HCl 25 mg 05/24/19 00:22 05/25/19 11:29 Demerol SLOW IVP 25 mg Q3H PRN Administration Severe Pain (7-10) Pantoprazole Sodium 40 mg 05/24/19 21:00 05/25/19 09:35 Protonix PO 40 mg BID HANNAH Administration Pregabalin 150 mg 05/24/19 21:00 05/25/19 09:35 Lyrica PO 150 mg TID HANNAH Administration Promethazine HCl 25 mg 05/24/19 15:36 05/24/19 18:18 Phenergan IVPB 25 mg Q4H PRN Administration Nausea/Vomiting Ropinirole HCl 0.5 mg 05/24/19 21:00 05/24/19 20:16 Requip PO 0.5 mg HS HANNAH Administration Sodium Chloride 10 ml 05/24/19 21:00 05/25/19 09:37 Flush - Normal Saline IVF 10 ml Q12HR HANNAH Administration - Exam General Appearance: NAD, awake alert Eye: PERRL, anicteric sclera ENT: normocephalic atraumatic, no oropharyngeal lesions Neck: supple, symmetric, no JVD, no thyromegaly Heart: RRR, no gallops, no rubs, normal peripheral pulses Respiratory: CTAB, no wheezes, no rales, no ronchi, normal chest expansion Gastrointestinal: soft, non-distended, normal bowel sounds, no palpable masses Gastrointestinal - other findings: minimal TTP in mid-epigastric region Extremities: no cyanosis, no clubbing, no edema Skin: normal turgor, no lesions Neurological: cranial nerve grossly intact, no new deficit Musculoskeletal: normal tone, normal strength Psychiatric: normal affect, A&O x 3 Hosp A/P (1) Acute pancreatitis Code(s): K85.90 - ACUTE PANCREATITIS WITHOUT NECROSIS OR INFECTION, UNSP Status: Acute Plan: Resolving after transient biliary obstruction from sludge vs passed stone, continue supportive mgmt, likely outpt GI follow up (2) Transaminitis Code(s): R74.0 - NONSPEC ELEV OF LEVELS OF TRANSAMNS & LACTIC ACID DEHYDRGNSE Status: Acute Plan: Secondary to above, improved, continue supportive mgmt, clear liquids, likely outpt GI follow up for consideration of ERCP (3) Tachycardia Code(s): R00.0 - TACHYCARDIA, UNSPECIFIED Status: Acute Plan: Improved, continue Clonidine/Amlodipine (4) Lactic acidosis Code(s): E87.2 - ACIDOSIS Status: Acute Plan: Resolved (5) Diabetes type 2, controlled Code(s): E11.9 - TYPE 2 DIABETES MELLITUS WITHOUT COMPLICATIONS Status: Chronic Qualifiers: Diabetes mellitus superintendent terminal insulin use: with superintendent terminal use Plan: ISS, serial accuchecks (6) HTN (hypertension) Code(s): I10 - ESSENTIAL (PRIMARY) HYPERTENSION Status: Chronic Qualifiers: Hypertension type: essential hypertension Qualified Code(s): I10 - Essential (primary) hypertension Plan: Resume Clonidine/Amlodipine (7) S/P bypass gastrojejunostomy Code(s): Z98.0 - INTESTINAL BYPASS AND ANASTOMOSIS STATUS Status: Chronic - Plan plan discussed w/ family, continue antibiotics, social services manager, out of bed/ ambulate, DVT proph w/SCDs Continue supportive mgmt Continue IV Zosyn Continue IVF's Start clear liquids Resume Clonidine/Amlodipine OOB/ambulate KCL supplementation AM lab: CMP, CBC, Lipase Likely home in 24h
[2019-05-25] MEDS: traMADol HCl 50 MG TAB PO PRN (18:17)
[2019-05-25] MEDS: rOPINIRole HCl 0.5 MG TAB PO SCH (21:07)
[2019-05-26] MEDS: Piperacillin/Tazobactam 3.375 GM in Sodium Chloride 0.9% 100 ML IVPB SCH ×5 (00:55→23:03)
[2019-05-26] MEDS: traMADol HCl 50 MG TAB PO PRN ×2 (05:18→20:49)
[2019-05-26 06:23] LABS: Eosinophils 1 % (0-10); Hemoglobin 10.5 g/dL (12.0-16.0); Lymphocytes 24 % (21-51); MDiff Complete? YES; Mean Corpuscular HGB CONC 33.6 g/dL (32.0-36.0); Mean Corpuscular Hemoglobin 29.9 pg (27.0-31.0); Mean Corpuscular Volume 88.8 fL (78.0-98.0); Mean Platelet Volume 8.7 fL (7.4-10.4); Monocytes 17 % (0-10); Neutrophil 58 % (42-75); Platelet Count 276 thou/uL (130-400); Platelet Morphology Comment Appears Adequate; RBC Distribution Width 13.5 % (11.5-14.5); Red Blood Cell (RBC) Count 3.53 mill/uL (4.20-5.40)
[2019-05-26 06:32] LABS: ALT (SGPT) 90 U/L (8-55); AST (SGOT) 41 U/L (5-34); Albumin 3.3 g/dL (3.4-4.8); Alkaline Phosphatase 211 U/L (40-110); Anion Gap 13 mmol/L (10-20); BUN (Urea Nitrogen) 6 mg/dL (9.8-20.1); Bilirubin, Total 0.7 mg/dL (0.2-1.2); Calc. Creatinine Clearance 72 mL/min (70-130); Carbon Dioxide 19 mmol/L (23-31); Chloride 110 mmol/L (98-107); Estimated GFR-MDRD Greater than 90; Globulin 3.2 g/dL (2.4-3.5); Glucose 88 mg/dL (80-115); Lipase 29 U/L (8-78); Protein, Total 6.5 g/dL (6.0-8.3); Sodium 139 mmol/L (136-145)
[2019-05-26 06:37] LABS: Potassium 2.9 mmol/L (3.5-5.1)
[2019-05-26] MEDS ORDERED: CCU Electrolyte Replacement 1 EACH FS ONE (06:44)
[2019-05-26] MEDS ORDERED: Potassium Chloride 40 MEQ in Sodium Chloride 0.9% 250 ML 250 ML IVPB PRN (06:47)
[2019-05-26] MEDS ORDERED: Magnesium Oxide 400 MG TAB PO PRN (06:47)
[2019-05-26] MEDS ORDERED: Potassium Phosphate 15 MMOL in Sodium Chloride 0.9% 250 ML 250 ML IV PRN (06:47)
[2019-05-26] MEDS ORDERED: Potassium Chloride 40 MEQ in Premix Bag 1 BAG IVPB PRN (06:47)
[2019-05-26] MEDS ORDERED: Magnesium 2 GM/50 ML 2 GM in Premix Bag 1 BAG IVPB PRN (06:47)
[2019-05-26] MEDS ORDERED: Potassium Phosphate 12 MMOL in Sodium Chloride 0.9% 250 ML 250 ML IV PRN (06:47)
[2019-05-26] MEDS ORDERED: Potassium Chloride 20 MEQ TAB PO PRN (06:47)
[2019-05-26] MEDS ORDERED: CCU ELECTROLYTE REPLACEMENT PROTOCOL FS PRN (06:47)
[2019-05-26] MEDS ORDERED: PHOS-NAK 1 PKT PACK PO PRN (06:47)
[2019-05-26] MEDS ORDERED: Potassium Phosphate 9 MMOL in Sodium Chloride 0.9% 100 ML IVPB PRN (06:47)
--- NOTE | 2019-05-26 07:54 | PRG ---
DATE OF SERVICE: 05/25/2019 SUBJECTIVE: This is a 63-year-old female hospitalized with abdominal pain, nausea, vomiting, leukocytosis, abnormal LFTs. She also had elevated lipase of 1200 indicative of acute pancreatitis. The patient has had previous open cholecystectomy many years ago. She also had a complicated course in December of this year to March of this year with perforated ulcer disease, intra-abdominal abscess, sepsis. Yesterday, she was very ill. She had tachycardia, 125 and she also appears septic with leukocytosis of 18,000. The plan is being made to transfer her to [facility] for possible ERCP by endoscopist. Because she has had a previous gastrojejunostomy altered anatomy. This morning, she got really better. She looks very comfortable. Her pain has resolved. She has no more leukocytosis. WBC count 9800. OBJECTIVE: VITAL SIGNS: Markedly improved. Pulse 77, blood pressure 120/76. GENERAL: She appears very comfortable. She is passing flatus and had a bowel movement. CARDIOVASCULAR SYSTEM: Within normal limits. LUNGS: Within normal limits. ABDOMEN: Soft. No organomegaly. No tenderness. No masses. She is on clear liquid diet. LABORATORY DATA: Today shows WBC 9800, hemoglobin 11.2, hematocrit 34.8, polymorphs 74, bands 4. Chemistries; potassium 2.8, LFTs are markedly trending down, AST down to 136, ALT 155, alkaline phosphatase 294, bilirubin 1.2. Lipase is 125. CLINIC IMPRESSION: Acute pancreatitis, most likely biliary. The patient mostly passed a bile duct stone. She is on clear liquid diet. RECOMMENDATION: 1. Follow up LFTs. 2. Obtain an MRCP before discharge to make sure that she has no retained stone. If she has retained stone endoscopy. If she has no stone in the MRCP, she hopefully can go home over the weekend. Job ID: [id number]
[2019-05-26 07:57] LABS: Magnesium 1.2 mg/dL (1.6-2.6)
[2019-05-26 08:01] LABS: Phosphorus 1.6 mg/dL (2.3-4.7)
[2019-05-26] MEDS: Amlodipine 10 MG TAB PO SCH (09:34)
[2019-05-26] MEDS: cloNIDine 0.2 MG TAB PO SCH ×2 (09:35→20:47)
[2019-05-26] MEDS: Pregabalin 75 MG CAP PO SCH ×3 (09:35→20:48)
[2019-05-26] MEDS: Famotidine/PF 20 mg/2ml Vial SLOW IVP SCH ×2 (09:35→20:48)
[2019-05-26] MEDS: Potassium Chloride 20 MEQ TAB PO SCH (09:36)
[2019-05-26] MEDS: Sodium Chloride 0.9% 1,000 ML IV SCH ×3 (09:36→23:03)
[2019-05-26] MEDS: PHOS-NAK 1 PKT PACK PO PRN ×3 (09:38→20:49)
[2019-05-26] MEDS: Magnesium Oxide 400 MG TAB PO PRN ×2 (09:41→20:49)
--- NOTE | 2019-05-26 09:48 | PRG ---
DATE OF SERVICE: 05/26/2019 SUBJECTIVE: This morning, she is awake, alert, responsive, without any shortness of breath. OBJECTIVE: VITAL SIGNS: Stable. Temperature 99, room saturations 98%, pulse 62, blood pressure 140/74, respiratory rate 18. CHEST: No wheezing, crackles. CARDIAC: Normal S1, S2. No gallops. IMPRESSION: Abdominal pain, pancreatitis. Abnormal liver function. Pulmonary/Critical Care point, she is pretty stable. She can be transferred out of the MICU. Continue antibiotics, supportive care. I understand further imaging studies have been ordered including MRI of the abdomen. Job ID: [id number]
--- NOTE | 2019-05-26 14:09 | MRI ---
MRI ABDOMEN WITH AND WITHOUT CONTRAST: Date: 05/26/19 HISTORY: History of duodenal stump leak. Evaluate for stone. COMPARISON: Multiple prior examinations, most recent CT on 05/23/19. FINDINGS: No significant pleural fluid. No pericardial fluid. There is moderate grade intrahepatic and extrahep atic biliary dilatation. The common bile duct measures up to 14.0 mm. There appears to be a linear de fect within the common bile duct, likely a fibrin strand and not a stone. There is abrupt narrowing o f the distal common bile duct at the pancreatic head before it inserts upon the duodenum. The pancrea tic duct is also dilated. There is no direct communication with the duodenal stump. There are cysts of both kidneys. No hydroureteronephrosis. Aortic contour is normal. Spleen is unremarkable. Prior gastric antrectomy. IMPRESSION: 1. 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 Recommend correlation with LFTs. 2. Linear fibrin strand within the distal common bile duct, not a calculus. 3. Renal cysts. 4. Anterior abdominal wall scar with fat necrosis. POS: CET
[2019-05-26] MEDS: rOPINIRole HCl 0.5 MG TAB PO SCH (20:49)
[2019-05-26] MEDS ORDERED: diphenhydrAMINE 25 MG CAP PO SCH (22:00)
[2019-05-27] MEDS: Sodium Chloride 0.9% 1,000 ML IV SCH ×3 (05:17→23:06)
[2019-05-27 05:25] LABS: Anion Gap 17 mmol/L (10-20); BUN (Urea Nitrogen) 4 mg/dL (9.8-20.1); Calc. Creatinine Clearance 72 mL/min (70-130); Calcium 8.1 mg/dL (7.8-10.44); Carbon Dioxide 18 mmol/L (23-31); Chloride 109 mmol/L (98-107); Estimated GFR-MDRD Greater than 90; Glucose 74 mg/dL (80-115); Magnesium 1.3 mg/dL (1.6-2.6); Phosphorus 2.7 mg/dL (2.3-4.7); Sodium 141 mmol/L (136-145)
[2019-05-27] MEDS: Piperacillin/Tazobactam 3.375 GM in Sodium Chloride 0.9% 100 ML IVPB SCH ×4 (05:38→23:06)
[2019-05-27] MEDS: Magnesium Oxide 400 MG TAB PO PRN ×2 (06:51→12:23)
[2019-05-27] MEDS: Famotidine/PF 20 mg/2ml Vial SLOW IVP SCH ×2 (09:05→20:18)
[2019-05-27] MEDS: cloNIDine 0.2 MG TAB PO SCH ×2 (09:05→20:18)
[2019-05-27] MEDS: Pregabalin 75 MG CAP PO SCH ×3 (09:05→20:17)
[2019-05-27] MEDS: traMADol HCl 50 MG TAB PO PRN ×2 (09:06→22:41)
[2019-05-27] MEDS: Amlodipine 10 MG TAB PO SCH (09:07)
[2019-05-27] MEDS: PHOS-NAK 1 PKT PACK PO PRN ×3 (09:08→17:26)
--- NOTE | 2019-05-27 11:27 | PRG ---
DATE OF SERVICE: 05/27/2019 SUBJECTIVE: This morning, she is awake, responsive. OBJECTIVE: VITAL SIGNS: Temperature 99, blood pressure 161/79, pulse is 80, saturation 100%. CHEST: No wheezing, crackles. CARDIAC: Normal S1, S2. ABDOMEN: No mass. High-grade stricture near the ampulla. IMPRESSION: 1. Pancreatitis. Previous decortication. Pulmonary mauricio, nothing additional to offer. 2. Await GI input. Job ID: [id number]
--- NOTE | 2019-05-27 13:42 | PDOC.HOSPP ---
- Subjective Encounter Date: 05/27/19 Encounter Time: 11:20 Subjective: Feels better, less abdominal pain. - Objective Vital Signs & Weight: Vital Signs (12 hours) Temp Pulse BP Pulse Ox 05/27/19 10:38 99.0 F 05/27/19 09:07 85 161/79 H 05/27/19 09:05 161/79 H 05/27/19 08:00 98 05/27/19 07:09 99.0 F Weight Weight 105 lb 6.4 oz Most Recent Monitor Data Heart Rate from ECG 72 NIBP 144/78 NIBP BP-Mean 100 Respiration from ECG 15 SpO2 100 I&O: 05/26/19 05/27/19 05/28/19 06:59 06:59 06:59 Intake Total 2912 4090 Output Total 350 Balance 2562 4090 Result Diagrams: 05/26/19 05:44 05/27/19 04:35 Additional Labs: Accuchecks 05/27/19 05/27/19 05/27/19 12:13 07:00 05:44 POC Glucose 128 H 137 H 67 L 05/27/19 05/26/19 00:04 19:25 POC Glucose 85 81 Hospitalist ROS - Medication Medications: Active Medications Generic Name Dose Route Start Last Admin Trade Name Freq PRN Reason Stop Dose Admin Amlodipine Besylate 10 mg 05/25/19 09:00 05/27/19 09:07 Norvasc PO 10 mg DAILY HANNAH Administration Clonidine 0.2 mg 05/24/19 21:00 05/27/19 09:05 Catapres PO 0.2 mg BID HANNAH Administration Famotidine 20 mg 05/24/19 09:00 05/27/19 09:05 Pepcid SLOW IVP 20 mg BID HANNAH Administration Sodium Chloride 1,000 mls @ 125 mls/hr 05/24/19 00:30 05/27/19 12:23 Normal Saline 0.9% IV 1,000 mls .Q8H HANNAH Administration Piperacillin Sod/Tazobactam 100 mls @ 200 mls/hr 05/24/19 06:00 05/27/19 12: 21 Sod 3.375 gm/ Sodium Chloride IVPB 100 mls Q6HR HANNAH Administration Potassium Chloride 40 meq/ 270 mls @ 135 mls/hr 05/26/19 06:47 05/26/19 13:19 Sodium Chloride IVPB 270 mls ASDIR PRN Administration FOR SERUM K+ 2.5 - 3.5 Potassium Chloride 40 meq/ 100 mls @ 50 mls/hr 05/26/19 06:47 05/27/19 06:51 Device IVPB 100 mls ASDIR PRN Administration FOR SERUM K+ 2.5 - 3.5 Magnesium Oxide 800 mg 05/26/19 06:47 05/27/19 12:23 Magnesium Oxide PO 800 mg PRN PRN Administration FOR SERUM MAG < 1.4 Meperidine HCl 25 mg 05/24/19 00:22 05/25/19 11:29 Demerol SLOW IVP 25 mg Q3H PRN Administration Severe Pain (7-10) Miscellaneous Medication 1 pkt 05/26/19 06:47 05/27/19 12:23 Phos-Nak PO 1 pkt TIDPRN PRN Administration FOR PHOS LEVEL 1.0 - 1.8 Pantoprazole Sodium 40 mg 05/24/19 21:00 05/27/19 09:08 Protonix PO 40 mg BID HANNAH Administration Pregabalin 150 mg 05/24/19 21:00 05/27/19 09:05 Lyrica PO 150 mg TID HANNAH Administration Promethazine HCl 25 mg 05/24/19 15:36 05/24/19 18:18 Phenergan IVPB 25 mg Q4H PRN Administration Nausea/Vomiting Ropinirole HCl 0.5 mg 05/24/19 21:00 05/26/19 20:49 Requip PO 0.5 mg HS HANNAH Administration Sodium Chloride 10 ml 05/24/19 21:00 05/27/19 09:09 Flush - Normal Saline IVF 10 ml Q12HR HANNAH Administration Tramadol HCl 50 mg 05/24/19 15:16 05/27/19 09:06 Ultram PO 50 mg BIDPRN PRN Administration Pain - Exam General Appearance: NAD Neck: supple, no JVD Heart: RRR Respiratory: CTAB Gastrointestinal: soft, non-tender, diminished bowl sounds Extremities: no edema Neurological: no focal deficits Psychiatric: normal affect, A&O x 3 Hosp A/P (1) Acute pancreatitis Code(s): K85.90 - ACUTE PANCREATITIS WITHOUT NECROSIS OR INFECTION, UNSP Status: Acute Plan: improving . f/u with GI. (2) Transaminitis Code(s): R74.0 - NONSPEC ELEV OF LEVELS OF TRANSAMNS & LACTIC ACID DEHYDRGNSE Status: Acute Plan: Secondary to above. (3) Hypokalemia Code(s): E87.6 - HYPOKALEMIA Status: Acute Plan: With hypomagnesemia, Supplemented. (4) Diabetes type 2, controlled Code(s): E11.9 - TYPE 2 DIABETES MELLITUS WITHOUT COMPLICATIONS Status: Chronic Qualifiers: Diabetes mellitus buttermaker helper insulin use: with prison use Plan: BS satisfactory.. (5) HTN (hypertension) Code(s): I10 - ESSENTIAL (PRIMARY) HYPERTENSION Status: Chronic Qualifiers: Hypertension type: essential hypertension Qualified Code(s): I10 - Essential (primary) hypertension Plan: Monitor BP... (6) S/P bypass gastrojejunostomy Code(s): Z98.0 - INTESTINAL BYPASS AND ANASTOMOSIS STATUS Status: Chronic - Plan Continue current therapy. F/U with GI
--- NOTE | 2019-05-27 14:01 | EKG ---
Test Reason : Blood Pressure : / mmHG Vent. Rate : 131 BPM Atrial Rate : 131 BPM P-R Int : 152 ms QRS Dur : 076 ms QT Int : 294 ms P-R-T Axes : 029 -27 051 degrees QTc Int : 434 ms Sinus tachycardia Left ventricular hypertrophy with repolarization abnormality Abnormal ECG Confirmed by MICHAEL GONSALES M.D. ([id number]), makeup editor ABI DANIEL ([id number]) on 05/27/2019 2:00:47 PM Referred By: Confirmed By:MICHAEL GONSALES M.D.
[2019-05-27] MEDS: rOPINIRole HCl 0.5 MG TAB PO SCH (20:18)
[2019-05-28 05:36] LABS: Anion Gap 13 mmol/L (10-20); BUN (Urea Nitrogen) Less than 4 mg/dL (9.8-20.1); Calc. Creatinine Clearance 76 mL/min (70-130); Carbon Dioxide 21 mmol/L (23-31); Chloride 109 mmol/L (98-107); Estimated GFR-MDRD Greater than 90; Glucose 95 mg/dL (80-115); Magnesium 1.4 mg/dL (1.6-2.6); Phosphorus 2.4 mg/dL (2.3-4.7); Sodium 140 mmol/L (136-145)
[2019-05-28] MEDS: Piperacillin/Tazobactam 3.375 GM in Sodium Chloride 0.9% 100 ML IVPB SCH ×4 (05:48→23:14)
[2019-05-28] MEDS ORDERED: Potassium Chloride 10 MEQ in Premix Bag 1 BAG IVPB SCH (07:00)
[2019-05-28] MEDS ORDERED: Potassium Chloride 20 MEQ TAB PO SCH (07:00)
[2019-05-28] MEDS ORDERED: Magnesium 2 GM/50 ML 2 GM in Premix Bag 1 BAG IVPB SCH (07:00)
[2019-05-28] MEDS: Pregabalin 75 MG CAP PO SCH ×3 (07:56→20:27)
[2019-05-28] MEDS: Amlodipine 10 MG TAB PO SCH (07:57)
[2019-05-28] MEDS: cloNIDine 0.2 MG TAB PO SCH ×2 (07:58→20:27)
[2019-05-28] MEDS: Famotidine/PF 20 mg/2ml Vial SLOW IVP SCH ×2 (07:58→20:27)
[2019-05-28] MEDS: traMADol HCl 50 MG TAB PO PRN ×2 (08:11→21:04)
[2019-05-28] MEDS: Sodium Chloride 0.9% 1,000 ML IV SCH ×3 (10:08→23:17)
--- NOTE | 2019-05-28 11:35 | PDOC.HOSPP ---
- Subjective Encounter Date: 05/28/19 Encounter Time: 10:40 Subjective: C/O diarrhea. No abdominal pain. - Objective Vital Signs & Weight: Vital Signs (12 hours) Temp Pulse Resp BP BP Pulse Ox 05/28/19 11:09 98.4 F 77 16 150/86 H 95 05/28/19 07:58 150/76 H 05/28/19 07:57 96 179/94 H 05/28/19 07:28 98.4 F 96 16 179/94 H 96 05/28/19 04:49 98.4 F 86 19 168/87 H 95 05/28/19 00:00 98.1 F 63 20 149/70 H 96 Weight Weight 105 lb 6.4 oz Most Recent Monitor Data Heart Rate from ECG 99 NIBP 152/90 NIBP BP-Mean 110 Respiration from ECG 27 SpO2 100 I&O: 05/27/19 05/28/19 05/29/19 06:59 06:59 06:59 Intake Total 4090 3775 Output Total 400 Balance 4090 3375 Result Diagrams: 05/26/19 05:44 05/28/19 04:44 Additional Labs: Accuchecks 05/28/19 05/27/19 05/27/19 01:24 19:51 18:17 POC Glucose 115 H 203 H 156 H 05/27/19 12:13 POC Glucose 128 H Hospitalist ROS - Medication Medications: Active Medications Generic Name Dose Route Start Last Admin Trade Name Freq PRN Reason Stop Dose Admin Amlodipine Besylate 10 mg 05/25/19 09:00 05/28/19 07:57 Norvasc PO 10 mg DAILY HANNAH Administration Clonidine 0.2 mg 05/24/19 21:00 05/28/19 07:58 Catapres PO 0.2 mg BID HANNAH Administration Famotidine 20 mg 05/24/19 09:00 05/28/19 07:58 Pepcid SLOW IVP 20 mg BID HANNAH Administration Sodium Chloride 1,000 mls @ 125 mls/hr 05/24/19 00:30 05/28/19 10:08 Normal Saline 0.9% IV Not Given .Q8H HANNAH Piperacillin Sod/Tazobactam 100 mls @ 200 mls/hr 05/24/19 06:00 05/28/19 05: 48 Sod 3.375 gm/ Sodium Chloride IVPB 100 mls Q6HR HANNAH Administration Potassium Chloride 40 meq/ 270 mls @ 135 mls/hr 05/26/19 06:47 05/26/19 13:19 Sodium Chloride IVPB 270 mls ASDIR PRN Administration FOR SERUM K+ 2.5 - 3.5 Potassium Chloride 40 meq/ 100 mls @ 50 mls/hr 05/26/19 06:47 05/27/19 06:51 Device IVPB 100 mls ASDIR PRN Administration FOR SERUM K+ 2.5 - 3.5 Magnesium Oxide 800 mg 05/26/19 06:47 05/27/19 12:23 Magnesium Oxide PO 800 mg PRN PRN Administration FOR SERUM MAG < 1.4 Meperidine HCl 25 mg 05/24/19 00:22 05/25/19 11:29 Demerol SLOW IVP 25 mg Q3H PRN Administration Severe Pain (7-10) Miscellaneous Medication 1 pkt 05/26/19 06:47 05/27/19 17:26 Phos-Nak PO 1 pkt TIDPRN PRN Administration FOR PHOS LEVEL 1.0 - 1.8 Pantoprazole Sodium 40 mg 05/24/19 21:00 05/28/19 07:56 Protonix PO 40 mg BID HANNAH Administration Pregabalin 150 mg 05/24/19 21:00 05/28/19 07:56 Lyrica PO 150 mg TID HANNAH Administration Promethazine HCl 25 mg 05/24/19 15:36 05/24/19 18:18 Phenergan IVPB 25 mg Q4H PRN Administration Nausea/Vomiting Ropinirole HCl 0.5 mg 05/24/19 21:00 05/27/19 20:18 Requip PO 0.5 mg HS HANNAH Administration Sodium Chloride 10 ml 05/24/19 21:00 05/28/19 07:58 Flush - Normal Saline IVF 10 ml Q12HR HANNAH Administration Tramadol HCl 50 mg 05/24/19 15:16 05/28/19 08:11 Ultram PO 50 mg BIDPRN PRN Administration Pain - Exam General Appearance: NAD Neck: no JVD Heart: RRR Respiratory: CTAB Gastrointestinal: soft Extremities: no edema Neurological: no weakness Hosp A/P (1) Acute pancreatitis Code(s): K85.90 - ACUTE PANCREATITIS WITHOUT NECROSIS OR INFECTION, UNSP Status: Acute Plan: Resolving.. (2) Transaminitis Code(s): R74.0 - NONSPEC ELEV OF LEVELS OF TRANSAMNS & LACTIC ACID DEHYDRGNSE Status: Acute (3) Hypokalemia Code(s): E87.6 - HYPOKALEMIA Status: Acute Plan: Due to poor intake. Supplemented (4) Diabetes type 2, controlled Code(s): E11.9 - TYPE 2 DIABETES MELLITUS WITHOUT COMPLICATIONS Status: Chronic Qualifiers: Diabetes mellitus usp insulin use: with manager print use Plan: on sliding scale.. (5) HTN (hypertension) Code(s): I10 - ESSENTIAL (PRIMARY) HYPERTENSION Status: Chronic Qualifiers: Hypertension type: essential hypertension Qualified Code(s): I10 - Essential (primary) hypertension Plan: Fluctuating.. No new intervention at this time.. (6) S/P bypass gastrojejunostomy Code(s): Z98.0 - INTESTINAL BYPASS AND ANASTOMOSIS STATUS Status: Chronic (7) Diarrhea Code(s): R19.7 - DIARRHEA, UNSPECIFIED Status: Acute Plan: Check stools C.dif - Plan Continue current therapy. F/U with GI F/U stools c. dif
[2019-05-28] MEDS: rOPINIRole HCl 0.5 MG TAB PO SCH (20:28)
[2019-05-28] MEDS ORDERED: Zolpidem Tartrate 5 MG TAB PO SCH (21:15)
[2019-05-29] MEDS: Sodium Chloride 0.9% 1,000 ML IV SCH ×3 (02:47→21:01)
[2019-05-29] MEDS: Piperacillin/Tazobactam 3.375 GM in Sodium Chloride 0.9% 100 ML IVPB SCH ×2 (05:34→11:41)
[2019-05-29 08:11] LABS: #Eosinphils 0.1 thou/uL (0.0-0.7); #Lymphocytes 1.6 thou/uL (1.20-3.40); #Monocytes 0.6 thou/uL (0.11-0.59); #Neutrophils 2.5 thou/uL (1.40-6.50); %Basophils 0.7 % (0.0-1.0); %Eosinophils 2.7 % (0.0-10.0); %Lymphocytes 32.6 % (21.0-51.0); %Monocytes 11.9 % (0.0-10.0); %Neutrophils 52.1 % (42.0-75.0); Mean Corpuscular Hemoglobin 29.8 pg (27.0-31.0); Mean Corpuscular Volume 87.6 fL (78.0-98.0); Platelet Count 311 thou/uL (130-400); RBC Distribution Width 13.2 % (11.5-14.5); Red Blood Cell (RBC) Count 3.68 mill/uL (4.20-5.40); White Blood Cell (WBC) Count 4.8 thou/uL (4.8-10.8)
[2019-05-29 08:31] LABS: Anion Gap 15 mmol/L (10-20); BUN (Urea Nitrogen) 5 mg/dL (9.8-20.1); Calc. Creatinine Clearance 66 mL/min (70-130); Calcium 8.3 mg/dL (7.8-10.44); Carbon Dioxide 17 mmol/L (23-31); Chloride 113 mmol/L (98-107); Estimated GFR-MDRD 90; Glucose 118 mg/dL (80-115); Magnesium 1.5 mg/dL (1.6-2.6); Sodium 142 mmol/L (136-145)
[2019-05-29 08:42] LABS: Potassium 2.8 mmol/L (3.5-5.1)
[2019-05-29] MEDS: Pregabalin 75 MG CAP PO SCH ×3 (09:43→20:58)
[2019-05-29] MEDS: Amlodipine 10 MG TAB PO SCH (09:44)
[2019-05-29] MEDS: cloNIDine 0.2 MG TAB PO SCH ×2 (09:45→20:57)
[2019-05-29] MEDS: Famotidine/PF 20 mg/2ml Vial SLOW IVP SCH ×2 (09:45→20:58)
[2019-05-29] MEDS: traMADol HCl 50 MG TAB PO PRN ×2 (09:56→20:56)
--- NOTE | 2019-05-29 10:30 | PRG ---
DATE OF SERVICE: 05/26/2019 SUBJECTIVE: This is a 63-year-old female with complicated medical history. The patient has rectal ulcer disease with bleeding and also perforated ulcer disease in December of 2018. She underwent surgery anastomotic leak, intra-abdominal abscess with drainage and also has had empyema with decortication. The patient was admitted to the hospital because of abdominal pain, . The patient had abdominal CAT scan, which revealed dilation of the common bile duct and biliary ducts. The liver function is markedly elevated. No abdominal pain. No vomiting. The liver function tests are trending down. back to normal. She is tolerating clear liquid diet. She had MRCP yesterday. The MRCP showed abnormal findings including dilation of and common bile duct. Also, the does not completely show the duodenum. It appears she has a biliary stricture, probably at the distal bile duct going towards the duodenum. we do not see any direct connection in the common bile duct or duodenum. Based on the above findings, . The liver function tests yesterday showed bilirubin 0.7, AST down to 41, ALT 90, alkaline phosphatase 211. OBJECTIVE: GENERAL: Appears very comfortable. Her weight is stable. CARDIOVASCULAR: Within normal limits. CLINICAL IMPRESSION: MRCP shows what appears to be a biliary stricture. I believe she should undergo PTC with possibly Dr. Mcintosh and hopefully, this can be done on Wednesday. I will . I am very sure this is going to be a recurring problem. I believe Job ID: [id number]
--- NOTE | 2019-05-29 10:49 | PRG ---
DATE OF SERVICE: 05/27/2019 SUBJECTIVE: A 63-year-old female hospitalized 5 days ago with abdominal pain, nausea, vomiting, and findings of . The patient also had acute pancreatitis with a lipase of more than 1200. LFTs markedly elevated. The patient has had previous antrectomy and gastrojejunostomy. Initial plan was to [facility]ist to do ERCP. Apparently, her liver function tests are coming down and also lipase came back normal. She also became asymptomatic. Because of the above reasons, I decided to hold the transfer and watch her how she does. She has done well over the last 48 hours. No abdominal pain, nausea, vomiting. She is on clear liquid diet. 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 There was some fat stranding. No definite filling defects. The patient needs probably a PTC with stent placement or possibly a referral to a video endoscopy. The patient has some symptoms. Her labs are pretty much back to normal. . OBJECTIVE: VITAL SIGNS: Afebrile. Her vital signs are stable. CARDIOVASCULAR: Within normal limits. ABDOMEN: Soft to palpate. EXTREMITIES: Reveal no edema. CLINICAL IMPRESSION: The MRCP does show a stricture at the ampulla. The distal CBD . The patient has had multiple surgeries in the past including antrectomy and gastrojejunostomy and repeat surgery because of the bile leak . I believe she really needs in the form of either a PTC I did talk with the patient's caregiver. We will plan for a PTC with consider transfer to the [facility]. I will advance diet to 1800 ADA diet today. Incidentally, I did dictate a note yesterday and I do not see the dictation dated 05/26/2019. Job ID: [id number]
[2019-05-29] MEDS ORDERED: Potassium Chloride 20 MEQ TAB PO SCH (11:00)
--- NOTE | 2019-05-29 13:53 | PDOC.HOSPP ---
- Subjective Encounter Date: 05/29/19 Encounter Time: 13:51 Subjective: diarrhea persists - Objective Vital Signs & Weight: Vital Signs (12 hours) Temp Pulse Resp BP BP Pulse Ox 05/29/19 12:00 97.7 F 81 16 112/67 97 05/29/19 09:45 168/83 H 05/29/19 09:44 73 168/83 H 05/29/19 07:27 98.5 F 73 16 168/83 H 96 Weight Weight 105 lb 6.4 oz Most Recent Monitor Data Heart Rate from ECG 99 NIBP 152/90 NIBP BP-Mean 110 Respiration from ECG 27 SpO2 100 I&O: 05/28/19 05/29/19 05/30/19 06:59 06:59 06:59 Intake Total 3775 4000 200 Output Total 400 Balance 3375 4000 200 Result Diagrams: 05/29/19 07:54 05/29/19 07:54 Additional Labs: Accuchecks 05/29/19 05/29/19 05/29/19 11:56 05:40 00:19 POC Glucose 171 H 100 157 H 05/28/19 16:36 POC Glucose 108 Hospitalist ROS - Medication Medications: Active Medications Generic Name Dose Route Start Last Admin Trade Name Freq PRN Reason Stop Dose Admin Amlodipine Besylate 10 mg 05/25/19 09:00 05/29/19 09:44 Norvasc PO 10 mg DAILY HANNAH Administration Clonidine 0.2 mg 05/24/19 21:00 05/29/19 09:45 Catapres PO 0.2 mg BID HANNAH Administration Famotidine 20 mg 05/24/19 09:00 05/29/19 09:45 Pepcid SLOW IVP 20 mg BID HANNAH Administration Sodium Chloride 1,000 mls @ 125 mls/hr 05/24/19 00:30 05/29/19 11:22 Normal Saline 0.9% IV 1,000 mls .Q8H HANNAH Administration Piperacillin Sod/Tazobactam 100 mls @ 200 mls/hr 05/24/19 06:00 05/29/19 11: 41 Sod 3.375 gm/ Sodium Chloride IVPB 100 mls Q6HR HANNAH Administration Potassium Chloride 40 meq/ 270 mls @ 135 mls/hr 05/26/19 06:47 05/26/19 13:19 Sodium Chloride IVPB 270 mls ASDIR PRN Administration FOR SERUM K+ 2.5 - 3.5 Potassium Chloride 40 meq/ 100 mls @ 50 mls/hr 05/26/19 06:47 05/27/19 06:51 Device IVPB 100 mls ASDIR PRN Administration FOR SERUM K+ 2.5 - 3.5 Magnesium Oxide 800 mg 05/26/19 06:47 05/27/19 12:23 Magnesium Oxide PO 800 mg PRN PRN Administration FOR SERUM MAG < 1.4 Meperidine HCl 25 mg 05/24/19 00:22 05/25/19 11:29 Demerol SLOW IVP 25 mg Q3H PRN Administration Severe Pain (7-10) Miscellaneous Medication 1 pkt 05/26/19 06:47 05/27/19 17:26 Phos-Nak PO 1 pkt TIDPRN PRN Administration FOR PHOS LEVEL 1.0 - 1.8 Pantoprazole Sodium 40 mg 05/24/19 21:00 05/29/19 09:45 Protonix PO 40 mg BID HANNAH Administration Pregabalin 150 mg 05/24/19 21:00 05/29/19 09:43 Lyrica PO 150 mg TID HANNAH Administration Promethazine HCl 25 mg 05/24/19 15:36 05/24/19 18:18 Phenergan IVPB 25 mg Q4H PRN Administration Nausea/Vomiting Ropinirole HCl 0.5 mg 05/24/19 21:00 05/28/19 20:28 Requip PO 0.5 mg HS HANNAH Administration Sodium Chloride 10 ml 05/24/19 21:00 05/29/19 09:45 Flush - Normal Saline IVF 10 ml Q12HR HANNAH Administration Tramadol HCl 50 mg 05/24/19 15:16 05/29/19 09:56 Ultram PO 50 mg BIDPRN PRN Administration Pain - Exam Heart: RRR, no murmur Respiratory: CTAB. negative: no tachypnea Gastrointestinal: soft, non-tender, normal bowel sounds Extremities: no edema Hosp A/P (1) Acute pancreatitis Code(s): K85.90 - ACUTE PANCREATITIS WITHOUT NECROSIS OR INFECTION, UNSP Status: Acute Qualifiers: Pancreatitis type: unspecified pancreatitis type Acute pancreatitis complication: unspecified Qualified Code(s): K85.90 - Acute pancreatitis without necrosis or infection, unspecified (2) Diarrhea Code(s): R19.7 - DIARRHEA, UNSPECIFIED Status: Acute Qualifiers: Diarrhea type: unspecified type Qualified Code(s): R19.7 - Diarrhea, unspecified (3) Abnormal LFTs Code(s): R94.5 - ABNORMAL RESULTS OF LIVER FUNCTION STUDIES Status: Acute (4) Diabetes type 2, controlled Code(s): E11.9 - TYPE 2 DIABETES MELLITUS WITHOUT COMPLICATIONS Status: Chronic Qualifiers: Diabetes mellitus buttermaker helper insulin use: with residential use Diabetes mellitus complication status: with hyperglycemia Qualified Code(s): E11.65 - Type 2 diabetes mellitus with hyperglycemia; Z79.4 - [facility] (current) use of insulin (5) Dyslipidemia Code(s): E78.5 - HYPERLIPIDEMIA, UNSPECIFIED Status: Chronic (6) HTN (hypertension) Code(s): I10 - ESSENTIAL (PRIMARY) HYPERTENSION Status: Chronic Qualifiers: Hypertension type: essential hypertension Qualified Code(s): I10 - Essential (primary) hypertension - Plan stool for C diff neg CONNOR morataya discuss plans with GI
--- NOTE | 2019-05-29 16:50 | PRG ---
DATE OF SERVICE: 05/29/2019 SUBJECTIVE: Ms. Qureshi feels good this afternoon. She notes a little bit of bloating when she eats, but no recurring pain. OBJECTIVE: She is afebrile and her vital signs are stable. Her abdomen is soft and nontender. Her midline incision is well healed. LABORATORY DATA: She has not had LFTs since the , but her bilirubin was normal at that point. Her MRCP does show an apparent stricture at her ampulla. 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 PLAN: We will discuss with Dr. Harper. If she does in fact have strictures, likely to be a recurring issue. Whether she has attempted PTC here or elsewhere, I think that is likely some that she is going to need. Job ID: [id number]
[2019-05-29] MEDS: rOPINIRole HCl 0.5 MG TAB PO SCH (20:57)
[2019-05-29] MEDS ORDERED: Melatonin 3 MG TAB PO PRN (21:36)
[2019-05-29] MEDS ORDERED: tiZANidine HCl 4 MG TAB PO PRN (22:23)
[2019-05-30] MEDS: Sodium Chloride 0.9% 1,000 ML IV SCH (05:00)
[2019-05-30] MEDS ORDERED: Loperamide HCl 2 MG CAP PO SCH (05:30)
[2019-05-30 06:07] LABS: #Basophils 0.1 thou/uL (0.0-0.2); #Eosinphils 0.3 thou/uL (0.0-0.7); #Lymphocytes 2.2 thou/uL (1.20-3.40); #Monocytes 0.5 thou/uL (0.11-0.59); #Neutrophils 2.5 thou/uL (1.40-6.50); %Basophils 1.2 % (0.0-1.0); %Eosinophils 4.6 % (0.0-10.0); %Lymphocytes 40.1 % (21.0-51.0); %Monocytes 8.9 % (0.0-10.0); %Neutrophils 45.2 % (42.0-75.0); Hemoglobin 11.5 g/dL (12.0-16.0); Mean Corpuscular HGB CONC 33.1 g/dL (32.0-36.0); Mean Corpuscular Hemoglobin 28.6 pg (27.0-31.0); Mean Corpuscular Volume 86.2 fL (78.0-98.0); Mean Platelet Volume 8.1 fL (7.4-10.4); Platelet Count 346 thou/uL (130-400); RBC Distribution Width 13.3 % (11.5-14.5); Red Blood Cell (RBC) Count 4.03 mill/uL (4.20-5.40); White Blood Cell (WBC) Count 5.6 thou/uL (4.8-10.8)
[2019-05-30 06:30] LABS: ALT (SGPT) 27 U/L (8-55); AST (SGOT) 14 U/L (5-34); Albumin 3.6 g/dL (3.4-4.8); Alkaline Phosphatase 148 U/L (40-110); Anion Gap 12 mmol/L (10-20); BUN (Urea Nitrogen) 5 mg/dL (9.8-20.1); Bilirubin, Total 0.4 mg/dL (0.2-1.2); Calc. Creatinine Clearance 75 mL/min (70-130); Calcium 8.9 mg/dL (7.8-10.44); Carbon Dioxide 21 mmol/L (23-31); Chloride 111 mmol/L (98-107); Estimated GFR-MDRD Greater than 90; Globulin 3.3 g/dL (2.4-3.5); Glucose 106 mg/dL (80-115); Lipase 136 U/L (8-78); Magnesium 1.3 mg/dL (1.6-2.6); Protein, Total 6.9 g/dL (6.0-8.3); Sodium 141 mmol/L (136-145)
[2019-05-30 06:35] LABS: Potassium 2.9 mmol/L (3.5-5.1)
[2019-05-30] MEDS ORDERED: Potassium Chloride 20 MEQ TAB PO SCH ×2 (06:45→17:00)
--- NOTE | 2019-05-30 07:28 | PRG ---
DATE OF SERVICE: 05/29/2019 SUBJECTIVE: This is a 63-year-old female, hospitalized on the 24 of May with abdominal pain, nausea, vomiting, and evidence of pancreatitis. She also had elevated LFTs. She appeared toxic and she had tachycardia, and initially I felt she would be transferred to tertiary care center. The patient did well within 24 hours, telling me her symptoms resolved. Liver function tests coming down. She had an MRCP on Wednesday, and as per the conversation with Dr. Mcintosh, he felt the PTC with stent placement should be done. The patient had a long stricture of probably distal common bile duct close to the papilla. The plan was to do a PTC with stent placement today. However, when I spoke with Dr. Mendoza Murray, he informed that this cannot be done here. He felt she will be transferred to a tertiary care center for the procedure. The other diagnostic PTC can be done here. He did not feel that the stent placement can be done. The patient has had previous gastrojejunostomy because of recent ERCP cannot be done. The patient is asymptomatic. No abdominal pain. No nausea or vomiting. Liver function tests are normal. She has been having diarrhea over the last couple of days. The stool for C diff is negative. Her potassium level was down to 2.8 and she is getting potassium supplement. She has no complaints. OBJECTIVE: GENERAL: Appears very comfortable. Afebrile. VITAL SIGNS: Stable. CARDIOVASCULAR: Within normal limits. LUNGS: Within normal limits. ABDOMEN: Soft. No organomegaly. No tenderness. No masses. IMPRESSION: 1. Status post antrectomy, gastrojejunostomy. 2. Abdominal abscess, status post percutaneous drainage at the last admission. 3. Empyema, right chest, status post decortication. 4. Recent pancreatitis, resolved. 5. MRCP showing a long biliary stricture needs to be addressed. Unfortunately because of previous gastrojejunostomy, the ERCP cannot be done. The options available are PTC with possible stent placement. As per Radiology department, it cannot be done here. Dr. Mendoza Murray recommended the patient to be transferred to the tertiary care center. I believe she would be transferred to a tertiary care center. Hopefully, a PTC with a stent can be done or possibly a biliary endoscopist can perform ERCP. This was conveyed to the patient's family. I also had a long discussion with patient and Dr. Man Morgan who did surgery a couple of months. Dr. Morgan also feels that something difference should be done to prevent lapse of pancreatitis and sepsis. I talked with the patient's family and the patient and they agreed. I believe she should be transferred to a tertiary care center hoping to have a PTC with stent placement versus biliary endoscopist to perform ERCP. Job ID: [id number]
[2019-05-30] MEDS: cloNIDine 0.2 MG TAB PO SCH ×2 (08:01→20:01)
[2019-05-30] MEDS: Pregabalin 75 MG CAP PO SCH ×3 (08:02→20:00)
[2019-05-30] MEDS: Famotidine/PF 20 mg/2ml Vial SLOW IVP SCH ×2 (08:03→20:02)
[2019-05-30] MEDS: Amlodipine 10 MG TAB PO SCH (08:04)
[2019-05-30] MEDS: traMADol HCl 50 MG TAB PO PRN ×2 (08:10→20:01)
--- NOTE | 2019-05-30 10:41 | PDOC.HOSPP ---
- Subjective Encounter Date: 05/30/19 Encounter Time: 10:40 Subjective: no fever, pain - Objective Vital Signs & Weight: Vital Signs (12 hours) Temp Pulse Resp BP BP Pulse Ox 05/30/19 08:11 98 05/30/19 08:04 68 182/94 H 05/30/19 08:01 182/94 H 05/30/19 04:00 98.0 F 68 20 166/81 H 98 05/30/19 00:51 98.4 F 86 20 150/86 H 95 Weight Weight 105 lb 6.4 oz Most Recent Monitor Data Heart Rate from ECG 99 NIBP 152/90 NIBP BP-Mean 110 Respiration from ECG 27 SpO2 100 I&O: 05/29/19 05/30/19 05/31/19 06:59 06:59 06:59 Intake Total 4000 5370 Balance 4000 5370 Result Diagrams: 05/30/19 05:46 05/30/19 05:46 Additional Labs: Accuchecks 05/30/19 05/29/19 05/29/19 04:55 20:26 16:55 POC Glucose 101 188 H 102 05/29/19 11:56 POC Glucose 171 H Hospitalist ROS - Medication Medications: Active Medications Generic Name Dose Route Start Last Admin Trade Name Freq PRN Reason Stop Dose Admin Amlodipine Besylate 10 mg 05/25/19 09:00 05/30/19 08:04 Norvasc PO 10 mg DAILY HANNAH Administration Clonidine 0.2 mg 05/24/19 21:00 05/30/19 08:01 Catapres PO 0.2 mg BID HANNAH Administration Famotidine 20 mg 05/24/19 09:00 05/30/19 08:03 Pepcid SLOW IVP 20 mg BID HANNAH Administration Melatonin 3 mg 05/29/19 21:36 05/29/19 22:05 Melatonin PO 3 mg HS PRN Administration Insomnia Meperidine HCl 25 mg 05/24/19 00:22 05/25/19 11:29 Demerol SLOW IVP 25 mg Q3H PRN Administration Severe Pain (7-10) Pantoprazole Sodium 40 mg 05/24/19 21:00 05/30/19 08:04 Protonix PO 40 mg BID HANNAH Administration Pregabalin 150 mg 05/24/19 21:00 05/30/19 08:02 Lyrica PO 150 mg TID HANNAH Administration Promethazine HCl 25 mg 05/24/19 15:36 05/24/19 18:18 Phenergan IVPB 25 mg Q4H PRN Administration Nausea/Vomiting Ropinirole HCl 0.5 mg 05/24/19 21:00 05/29/19 20:57 Requip PO 0.5 mg HS HANNAH Administration Sodium Chloride 10 ml 05/24/19 21:00 05/30/19 08:04 Flush - Normal Saline IVF Not Given Q12HR HANNAH Tramadol HCl 50 mg 05/24/19 15:16 05/30/19 08:10 Ultram PO 50 mg BIDPRN PRN Administration Pain - Exam General Appearance: awake alert Neck: no JVD Heart: RRR Respiratory: CTAB Gastrointestinal: soft, non-tender, normal bowel sounds Extremities: no edema Hosp A/P (1) Acute pancreatitis Code(s): K85.90 - ACUTE PANCREATITIS WITHOUT NECROSIS OR INFECTION, UNSP Status: Acute Qualifiers: Pancreatitis type: unspecified pancreatitis type Acute pancreatitis complication: unspecified Qualified Code(s): K85.90 - Acute pancreatitis without necrosis or infection, unspecified (2) Diarrhea Code(s): R19.7 - DIARRHEA, UNSPECIFIED Status: Acute Qualifiers: Diarrhea type: unspecified type Qualified Code(s): R19.7 - Diarrhea, unspecified (3) Abnormal LFTs Code(s): R94.5 - ABNORMAL RESULTS OF LIVER FUNCTION STUDIES Status: Acute (4) Diabetes type 2, controlled Code(s): E11.9 - TYPE 2 DIABETES MELLITUS WITHOUT COMPLICATIONS Status: Chronic Qualifiers: Diabetes mellitus alf insulin use: with alf use Diabetes mellitus complication status: with hyperglycemia Qualified Code(s): E11.65 - Type 2 diabetes mellitus with hyperglycemia; Z79.4 - intermodal dispatcher (current) use of insulin (5) Dyslipidemia Code(s): E78.5 - HYPERLIPIDEMIA, UNSPECIFIED Status: Chronic (6) HTN (hypertension) Code(s): I10 - ESSENTIAL (PRIMARY) HYPERTENSION Status: Chronic Qualifiers: Hypertension type: essential hypertension Qualified Code(s): I10 - Essential (primary) hypertension (7) Hypokalemia Code(s): E87.6 - HYPOKALEMIA Status: Chronic - Plan GI in progress for transfer to tertiary center for PTC replace K=
--- NOTE | 2019-05-30 16:57 | PRG ---
DATE OF SERVICE: SUBJECTIVE: This is a 63-year-old female hospitalized a week ago, abdominal pain, nausea, vomiting, and evidence of acute pancreatitis and possible cholangitis. The patient improved with conservative treatment, IV antibiotics, IV fluids and n.p.o. Her liver function tests are normalized. She is asymptomatic. 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 Unfortunately, an ERCP cannot be done because of previous gastrojejunostomy. Also PTCA stent placement. I have discussed with the patient's family, plan is being made to transfer to [facility] in [place]. I did talk to the hospitalist in [facility] and also spoke to Dr. Sinclair, who is gastroenterology at [facility] this morning. They are agreeable to take the patient to [facility]. The patient at present appears very comfortable. She has no abdominal pain. No nausea or vomiting. OBJECTIVE: VITAL SIGNS: Afebrile, pulse is 76, blood pressure 120/76. HEENT: Conjunctivae clear. NECK: Supple. No adenitis or thyromegaly noted. CARDIOVASCULAR: First and second heart sounds heard. LUNGS: Clear to auscultation. ABDOMEN: Soft. No organomegaly. No tenderness. No masses. PLAN: Transfer to [facility] when bed is available for possible PTCA stent placement versus ERCP. The patient's family and patient are aware of the potential transfer later on today. Job ID: [id number]
[2019-05-30] MEDS: rOPINIRole HCl 0.5 MG TAB PO SCH (20:00)
[2019-05-30 20:02] VITALS: BP 165/93
[2019-05-30 20:09] VITALS: TEMP 98.3
--- NOTE | 2019-05-30 21:20 | DIS ---
DATE OF ADMISSION: 05/23/2019 DATE OF DISCHARGE: 05/30/2019 PCP: No PCP. DISPOSITION: Transferred to [facility] under the care of Dr. Kemal Colunga. DIAGNOSES: 1. Acute pancreatitis, resolved. 2. 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 3. Abnormal liver function test. 4. Diabetes, type 2. Long-term use of insulin. 5. Dyslipidemia. 6. Hypertension. 7. Hypokalemia. DISCHARGE MEDICATIONS: 1. Zanaflex one to two tablets at bedtime p.r.n. 2. Ropinirole 0.5 mg at bedtime. 3. Clonidine 0.2 mg twice a day. 4. Protonix 40 mg twice a day. 5. Amlodipine 10 mg a day. 6. Metformin 500 mg a day. 7. Tramadol 50 mg p.o. b.i.d. p.r.n. 8. Lyrica 150 mg p.o. t.i.d. 9. Potassium chloride 20 mEq p.o. b.i.d. ALLERGIES: TO CIPROFLOXACIN. PENDING AT THE TIME OF DISCHARGE: Further workup for bile duct dilatation to be done at [facility] CODE STATUS: Full. DIET: Diabetic. CONSULTATIONS: 1. Dr. Rito Harper, Gastrointestinal Diseases. 2. Dr. Jurgen Wyatt, Pulmonology. 3. Dr. Man Morgan, General Surgery. HOSPITAL COURSE: The patient was admitted to the [facility] through [facility]. She was admitted from the ER with symptoms of abdominal pain, found to have acute pancreatitis with a lipase of 1000. Alkaline phosphatase was elevated. Bilirubin was normal. The patient has a history of cholecystectomy. Imaging studies showed prominent intra and extrahepatic bile ducts. She was admitted with acute pancreatitis, transaminitis. She was made n.p.o., IV fluids, IV analgesics. Consultation with GI. Her initial laboratory; white count on 05/23 was 7.9, 05/24 was 16.2, eventually on 05/29/2019 it was 4.8. Hemoglobin was stable in the 11 plus or minus range. Initial comprehensive metabolic profile showed a glucose of 199, CO2 of 19, bilirubin 0.7, AST 666, ALT 166, alkaline phosphatase 461. She was placed on IV fluids, antibiotics, analgesics. Her lipase was initially at 1327 and in 24 hours, it had come down to 124, eventually came down to 29 on 05/26. Liver function studies actually dropped to AST of 14, ALT of 27, alkaline phosphatase of 148. She did have hypokalemia during her hospital stay, for which she was treated daily with potassium. At the time of discharge, it is still 2.9. She is on oral medications. In discussion between Dr. Harper and Dr. Man Morgan, General Surgery, decision was made that the patient needs a transfer to a tertiary center for PTC with stent placement versus biliary endoscopist to perform an ERCP as this was not able to be done here because of complications of previous surgeries, etc. Dr. Harper has been in consultation with [facility] for transfer and the patient has been accepted in transfer to [facility] by Dr. Colunga. At the time of transfer, the patient is afebrile. Vital signs are stable. Physical exam is unremarkable with no abdominal findings. Followup will be at this time with [facility]. The patient has no PCP in our area. She will need a PCP post hospitalization at [facility]. Job ID: [id number]
--- NOTE | 2019-06-01 20:54 | PQF ---
Maisha Qureshi, KAKTOVIK Farideh ZIEGLER [id number] CLINICAL DOCUMENTATION CLARIFICATION FORM: POST DISCHARGE Addendum to original discharge summary date: ____ Late entry note date: __ DATE: 06/01/19 ATTN: Dr. Harp, [place] [facility] Please exercise your independent, professional judgment in responding to the clarification form. Clinical indicators are provided on the bottom of this form for your review Please check appropriate box(s): [ ] Acute Pancreatitis as postoperative complication of Bypass gastrojejunostomy [ x ] Acute Pancreatitis not a postoperative complication of Bypass gastrojejunostomy [ ] Other condition, please specify: [ ] Unable to determine CLINICAL INDICATORS - SIGNS / SYMPTOMS / LABS H&P p1 05/23 Dr Hale Presented to ER with abdominal pain associated with nausea and vomiting H&P p1 05/23 Dr Hale workup in the ER, the patient was found to have acute pancreatitis with a lipase more than 1000, alkaline phosphatase is elevated H&P p2 05/23 Dr Hale Prominent bile duct-dilated Consult p3 05/24 Dr Harper Acute Pancreaitis, etiology unclear. 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
== END 2019-05-30 20:10 | disposition short-term general hospital (02) | DRG 438 ==
LOC: ERS 20:17 → IMCU/EMU 23:38 → T4-A 05-27 19:35
PROVIDERS: ADMIT Internal Medicine; ATTEND Internal Medicine
PROC: 3E0234Z Introduction of Serum, Toxoid and Vaccine into Muscle, Percutaneous Approach (ICD-10-PCS; principal; 2019-05-24)
PROC: 3E02340 Introduction of Influenza Vaccine into Muscle, Percutaneous Approach (ICD-10-PCS; 2019-05-24)
DX: K85.90 Acute pancreatitis without necrosis or infection, unspecified (principal); K83.1 Obstruction of bile duct; E87.2 Acidosis; R94.5 Abnormal results of liver function studies; E78.5 Hyperlipidemia, unspecified; I10 Essential (primary) hypertension; G25.81 Restless legs syndrome; M19.90 Unspecified osteoarthritis, unspecified site; E11.40 Type 2 diabetes mellitus with diabetic neuropathy, unspecified; M81.0 Age-related osteoporosis without current pathological fracture; K82.8 Other specified diseases of gallbladder; G89.29 Other chronic pain; M54.9 Dorsalgia, unspecified; E11.65 Type 2 diabetes mellitus with hyperglycemia; E87.6 Hypokalemia; R19.7 Diarrhea, unspecified; Z98.0 Intestinal bypass and anastomosis status; Z88.1 Allergy status to other antibiotic agents; Z90.49 Acquired absence of other specified parts of digestive tract; Z23 Encounter for immunization; Z79.899 Other long term (current) drug therapy; Z79.84 Long term (current) use of oral hypoglycemic drugs; Z87.11 Personal history of peptic ulcer disease
CPT/HCPCS: 36415; 36416; 74177; 74183; 80048; 80053; 80061; 80076; 81003; 81015; 83605; 83690; 83735; 84100; 84484; 85007; 85025; 85027; 86850; 86900; 86901; 87324; 87449; 90471; 90686; 90732; 93005; 96361; 96365; 96375; G0008; G0009; J2175; J2270; J2405; J2543; J2550; J3475; J3480; J3490; J7050; Q0163; Q9967; S0028

== ENCOUNTER 2019-06-08 11:59 | Inpatient (IN) | payer OTHER ==
[2019-06-08 17:21] VITALS: BMI 23.1
[2019-06-08] MEDS ORDERED: Acetaminophen 650 MG Suppository PR PRN (20:03)
[2019-06-08] MEDS ORDERED: Acetaminophen 325 MG TAB PO PRN (20:03)
[2019-06-08] MEDS ORDERED: Ondansetron ODT 4 MG TAB PO PRN (20:03)
[2019-06-08] MEDS ORDERED: Ondansetron PF 4 MG/2 ML Vial IVP PRN (20:03)
[2019-06-08] MEDS: HYDROcodone/Acetaminophen 7.5/325 mg Tablet PO PRN (20:18)
[2019-06-08] MEDS: Famotidine/PF 20 mg/2ml Vial SLOW IVP SCH (20:19)
[2019-06-08] MEDS ORDERED: cloNIDine 0.2 MG TAB PO SCH (21:30)
[2019-06-08] MEDS ORDERED: rOPINIRole HCl 0.5 MG TAB PO SCH (21:45)
[2019-06-08] MEDS ORDERED: Zolpidem Tartrate 5 MG TAB PO SCH (21:45)
[2019-06-08 21:55] LABS: #Eosinphils 0.2 thou/uL (0.0-0.7); #Lymphocytes 2.1 thou/uL (1.20-3.40); #Monocytes 0.6 thou/uL (0.11-0.59); #Neutrophils 3.6 thou/uL (1.40-6.50); %Basophils 0.7 % (0.0-1.0); %Eosinophils 3.7 % (0.0-10.0); %Lymphocytes 32.3 % (21.0-51.0); %Monocytes 8.5 % (0.0-10.0); %Neutrophils 54.8 % (42.0-75.0); Hemoglobin 10.3 g/dL (12.0-16.0); Mean Corpuscular HGB CONC 33.3 g/dL (32.0-36.0); Mean Corpuscular Hemoglobin 29.6 pg (27.0-31.0); Mean Corpuscular Volume 88.7 fL (78.0-98.0); Mean Platelet Volume 7.7 fL (7.4-10.4); Platelet Count 515 thou/uL (130-400); Red Blood Cell (RBC) Count 3.49 mill/uL (4.20-5.40); White Blood Cell (WBC) Count 6.5 thou/uL (4.8-10.8)
[2019-06-08 22:13] LABS: ALT (SGPT) 13 U/L (8-55); AST (SGOT) 11 U/L (5-34); Albumin 3.7 g/dL (3.4-4.8); Alkaline Phosphatase 149 U/L (40-110); Anion Gap 14 mmol/L (10-20); BUN (Urea Nitrogen) 17 mg/dL (9.8-20.1); Bilirubin, Total 0.4 mg/dL (0.2-1.2); Calc. Creatinine Clearance 46 mL/min (70-130); Calcium 9.2 mg/dL (7.8-10.44); Carbon Dioxide 19 mmol/L (23-31); Chloride 112 mmol/L (98-107); Estimated GFR-MDRD 67; Globulin 3.8 g/dL (2.4-3.5); Glucose 153 mg/dL (80-115); Potassium 3.8 mmol/L (3.5-5.1); Protein, Total 7.5 g/dL (6.0-8.3); Sodium 141 mmol/L (136-145)
[2019-06-09] MEDS: HYDROcodone/Acetaminophen 7.5/325 mg Tablet PO PRN ×6 (00:16→23:53)
--- NOTE | 2019-06-09 00:52 | HP ---
PRIMARY CARE PHYSICIAN: [facility]. CHIEF COMPLAINT: Right-sided abdominal pain secondary to percutaneous biliary drain. HISTORY OF PRESENT ILLNESS: Ms. Qureshi is a pleasant 63-year-old woman, who was recently admitted to the hospital on May 23, 2019, and transferred to [facility] due to dilation of intrahepatic and extrahepatic system with high-grade stricture near the ampulla with failed attempt at ERCP. The patient was transferred on 05/30/2019. She did also initially have acute pancreatitis with lipase of 1000, however, that did resolve prior to transfer. While at [facility], there was another failed attempt to place a stent or clear the blockage. Therefore, patient underwent a percutaneous biliary catheter placement at [facility]. This was exchanged on 06/06/2019 and given the fact that there was no further interventions recommended, she was transferred back here, to [facility]. The patient states she has had some mild discomfort associated with the drain. It seems to be well controlled with hydrocodone and occasionally morphine which was being given at [facility]. Patient states she has had trouble sleeping while in the hospital, but this is well managed with Ambien. She denies having any fevers, chills, or sweats. Has been tolerating oral intake without any nausea or vomiting. Denies any abdominal distention. She has been moving her bowels and denies any urinary symptoms. Overall, she feels generally weak and recently started mobilizing more since yesterday. She states she felt slightly lightheaded when walking. PAST MEDICAL HISTORY: 1. Peptic ulcer disease. 2. Osteoarthritis. 3. Diabetes, type 2. 4. Hypertension. 5. Osteoporosis. 6. Neuropathy. 7. Restless legs syndrome. 8. Recent resolution of acute pancreatitis. 9. 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 PAST SURGICAL HISTORY: 1. Bowel resection. 2. Appendectomy. 3. Cholecystectomy. 4. Ulcer removed from stomach in December. 5. Status post percutaneous biliary catheter placement. SOCIAL HISTORY: Denies any smoking, alcohol consumption, or illicit drug use. FAMILY HISTORY: Noncontributory. CURRENT MEDICATIONS: 1. Metformin. 2. Pantoprazole. 3. Pregabalin. 4. Ropinirole. 5. Tizanidine. 6. Tramadol. 7. Amlodipine. 8. Clonidine. 9. Potassium chloride. PHYSICAL EXAMINATION: GENERAL: The patient appears thin, frail, slightly cachectic, but in no acute distress. VITAL SIGNS: Temperature 98.1, pulse 89, respirations 20, O2 saturation 96% on room air, and blood pressure 139/80. HEENT: Normocephalic and atraumatic. Pupils are equal, round, and reactive to light. Sclerae without icterus. Oropharynx is clear. NECK: Supple. LUNGS: Clear to auscultation bilaterally without any wheezes, rales, or rhonchi. ABDOMEN: Soft. Mild discomfort with palpation of the right side of the abdomen which is where the percutaneous drain is in place without any surrounding erythema or warmth. Appears clean and dry. No evidence of infection. Normal bowel sounds. No rigidity. No renal angle tenderness. EXTREMITIES: No lower leg swelling or edema. NEUROLOGIC: Alert and oriented x3. No neuro deficits. SKIN: Warm and dry. IMPRESSION AND PLAN: Ms. Qureshi is a pleasant 63-year-old woman, who has been transferred back after undergoing percutaneous biliary catheter placement at [facility] with an exchange done on June 06, 2019. We will reconsult GI for continued management of the biliary catheter and further recommendations. Patient reports mild discomfort that seems to be well controlled with current pain medications including Lyrica, Charlotte, and occasionally morphine. We will obtain laboratory studies to assess current renal function before reconciling nephrotoxic agents. Patient is without any major complaints at this present time. She is concerned about her ability to sleep and would like to resume Ambien which we will go ahead and order for her. She recently started physical therapy yesterday at [facility] and we will consult PT/OT here. Patient appears thin, but is now tolerating a regular diet. We will resume Protonix. She does have diabetes, but we will hold metformin again until renal function is assessed and we will initiate an insulin sliding scale. Monitor blood glucose. Code status is full. Surrogate decision maker is her , Raymond Qureshi. Patient's case was discussed with Dr. Suarez, who agrees with plan of care as described above. Job ID: [id number] MTDD
[2019-06-09 05:48] LABS: #Basophils 0.1 thou/uL (0.0-0.2); #Eosinphils 0.3 thou/uL (0.0-0.7); #Lymphocytes 2.2 thou/uL (1.20-3.40); #Monocytes 0.6 thou/uL (0.11-0.59); #Neutrophils 2.1 thou/uL (1.40-6.50); %Basophils 1.2 % (0.0-1.0); %Eosinophils 4.9 % (0.0-10.0); %Lymphocytes 42.1 % (21.0-51.0); %Monocytes 11.4 % (0.0-10.0); %Neutrophils 40.4 % (42.0-75.0); Mean Corpuscular HGB CONC 33.4 g/dL (32.0-36.0); Mean Corpuscular Hemoglobin 29.8 pg (27.0-31.0); Mean Corpuscular Volume 89.1 fL (78.0-98.0); Mean Platelet Volume 7.8 fL (7.4-10.4); Platelet Count 471 thou/uL (130-400); Red Blood Cell (RBC) Count 3.37 mill/uL (4.20-5.40); White Blood Cell (WBC) Count 5.3 thou/uL (4.8-10.8)
[2019-06-09 06:11] LABS: ALT (SGPT) 13 U/L (8-55); AST (SGOT) 10 U/L (5-34); Albumin 3.5 g/dL (3.4-4.8); Alkaline Phosphatase 138 U/L (40-110); Anion Gap 12 mmol/L (10-20); BUN (Urea Nitrogen) 19 mg/dL (9.8-20.1); Bilirubin, Total 0.4 mg/dL (0.2-1.2); Calc. Creatinine Clearance 51 mL/min (70-130); Calcium 9.3 mg/dL (7.8-10.44); Carbon Dioxide 19 mmol/L (23-31); Chloride 110 mmol/L (98-107); Estimated GFR-MDRD 76; Globulin 3.7 g/dL (2.4-3.5); Glucose 123 mg/dL (80-115); Potassium 3.7 mmol/L (3.5-5.1); Protein, Total 7.2 g/dL (6.0-8.3); Sodium 137 mmol/L (136-145)
[2019-06-09] MEDS: Pregabalin 75 MG CAP PO SCH ×3 (08:11→20:58)
[2019-06-09] MEDS: Potassium Chloride 20 MEQ TAB PO SCH ×2 (08:11→17:27)
[2019-06-09] MEDS: Amlodipine 10 MG TAB PO SCH (08:12)
[2019-06-09] MEDS: cloNIDine 0.2 MG TAB PO SCH ×2 (08:13→20:58)
[2019-06-09] MEDS: Famotidine/PF 20 mg/2ml Vial SLOW IVP SCH ×2 (08:14→20:58)
[2019-06-09] MEDS ORDERED: Dextrose 50% Abboject 50 ML SYRINGE SLOW IVP PRN (12:22)
[2019-06-09] MEDS ORDERED: Dextrose 5% in Water 1,000 ML IV PRN (12:22)
--- NOTE | 2019-06-09 12:36 | CON ---
DATE OF CONSULTATION: 06/09/2019 CHIEF COMPLAINT: Abdominal pain. HISTORY OF PRESENT ILLNESS: Ms. Qureshi is a 63-year-old woman, who has had a prior duodenal ulcer that ultimately required surgery and gastrojejunostomy. She had prior to that attempted endoscopic therapy and was found to have a duodenal stricture and required cautery to visible vessel. She was admitted a couple of weeks ago with acute pancreatitis and biliary obstruction and ultimately improved her pancreatitis with fluids and then was transferred down to [place] for further management of the biliary stricture. She had a percutaneous transhepatic cholangiogram performed and the patient states that they ballooned her stricture. She was sent back up here continued management of her biliary drain and symptoms. She does report some chronic aching epigastric pain. This has been present ever since she started having problems with the ulcer. She has had no nausea or vomiting recently. She had a normal bowel movement today. She has had no fever. PAST MEDICAL HISTORY: Complicated duodenal ulcer, recent pancreatitis, biliary obstruction requiring PTC, diabetes mellitus type 2, hypertension, osteoarthritis, and osteoporosis. PAST SURGICAL HISTORY: Appendectomy, cholecystectomy, and ulcer surgery with gastrojejunostomy. FAMILY HISTORY: Negative for GI malignancy. SOCIAL HISTORY: No alcohol, tobacco, or drugs. ALLERGIES: CIPROFLOXACIN. MEDICATIONS: Famotidine, clonidine, amlodipine, pantoprazole, Lyrica and ropinirole. REVIEW OF SYSTEMS: Negative x10 systems reviewed, except as stated in history of present illness. PHYSICAL EXAMINATION: VITAL SIGNS: Temperature 97.7, pulse 70, and blood pressure 120/75. GENERAL: She is in no acute distress. Alert and oriented x3. LUNGS: Clear to auscultation bilaterally. HEART: Regular rate and rhythm without murmur. ABDOMEN: Soft. Mild tenderness in the epigastric region without guarding. Bowel sounds are present. EXTREMITIES: No lower extremity edema. LABORATORY DATA: White blood cell count 5.3, hemoglobin 10.0, platelets 471, creatinine 0.77, bilirubin 0.4, AST 10, ALT 13, alkaline phosphatase 138, and albumin 3.5. IMPRESSION: 1. 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 I really do not have much more detail on this and do not have procedure reports from [place]. The patient reports that the percutaneous transhepatic cholangiography was done with balloon dilation and she was advised that further balloon dilation of the ampullary stricture could be performed up here if possible. Otherwise if internal-external drain could be placed and repeated dilation performed, will hopefully allow us to avoid surgery. 2. Complicated duodenal ulcer requiring surgery previously. 3. Recent pancreatitis. She does have some residual epigastric pain. However, her pain seems to be stable really over the last few months at this point. RECOMMENDATIONS: 1. We will request recommendations from Interventional Radiology to see if they can manage this drain and potentially dilate the stricture periodically as needed. 2. This is a patient of Dr. Harper who will follow next week. ADDENDUM: I spoke with Radiology, Dr. Howard. He recommends touching base back with Dr. Alfonso Riley who does more with the PTC procedures and would be able to tell us if they can perform further intervention regarding repeated balloon dilation for the biliary transhepatic drain. We will reassess this with him on Wednesday when he returns. Please call if GI can help in the meantime. Job ID: [id number]
[2019-06-09] MEDS: HumaLOG 300 UNITS/3 ML VIAL SC PRN (17:37)
[2019-06-09] MEDS: rOPINIRole HCl 0.5 MG TAB PO SCH (20:58)
[2019-06-09] MEDS: Zolpidem Tartrate 5 MG TAB PO PRN (20:58)
--- NOTE | 2019-06-09 21:43 | PDOC.HOSPP ---
- Subjective Encounter Date: 06/09/19 Encounter Time: 21:40 Subjective: Patient still reports persistent abdominal pain, says she doesn't move much because she's in pain. She denies nausea or vomiting. Able to tolerate a diet. She says norco doesn't do much. Hasn't had bowel movement yet. - Objective Vital Signs & Weight: Vital Signs (12 hours) Temp Pulse Resp BP BP BP Pulse Ox 06/09/19 20:58 166/92 H 06/09/19 19:49 98.5 F 81 18 166/92 H 99 06/09/19 15:29 97.7 F 75 16 133/80 100 06/09/19 11:26 97.6 F 71 16 104/68 97 Weight Weight 96 lb I&O: 06/08/19 06/09/19 06/10/19 06:59 06:59 06:59 Intake Total 400 480 Output Total 550 325 Balance -150 155 Result Diagrams: 06/09/19 05:32 06/09/19 05:33 Additional Labs: Accuchecks 06/09/19 06/09/19 06/09/19 21:08 16:33 11:32 POC Glucose 94 185 H 156 H 06/09/19 06/08/19 05:35 21:11 POC Glucose 117 H 159 H Hospitalist ROS - Review of Systems Constitutional: denies: fever, chills Eyes: denies: vision change ENT: denies: ear discharge - Medication Medications: Active Medications Generic Name Dose Route Start Last Admin Trade Name Freq PRN Reason Stop Dose Admin Hydrocodone Bitart/Acetaminophen 1 tab 06/08/19 20:03 06/09/19 19:29 [place] 7.5/325 PO 1 tab Q4H PRN Administration Moderate Pain (4-6) Amlodipine Besylate 10 mg 06/09/19 09:00 06/09/19 08:12 Norvasc PO 10 mg DAILY HANNAH Administration Clonidine 0.2 mg 06/09/19 09:00 06/09/19 20:58 Catapres PO 0.2 mg BID HANNAH Administration Famotidine 20 mg 06/08/19 21:00 06/09/19 20:58 Pepcid SLOW IVP 20 mg Q12HR HANNAH Administration Insulin Human Lispro 0 units 06/09/19 12:22 06/09/19 17:37 Humalog SC 2 unit .MILD SLIDING SCALE PRN Administration Mild Correctional Scale Pantoprazole Sodium 40 mg 06/09/19 09:00 06/09/19 20:58 Protonix PO 40 mg BID HANNAH Administration Potassium Chloride 20 meq 06/09/19 08:00 06/09/19 17:27 K-Dur PO 20 meq BID-WM HANNAH Administration Pregabalin 150 mg 06/09/19 09:00 06/09/19 20:58 Lyrica PO 150 mg TID HANNAH Administration Ropinirole HCl 0.5 mg 06/09/19 21:00 06/09/19 20:58 Requip PO 0.5 mg HS HANNAH Administration Sodium Chloride 10 ml 06/08/19 20:03 06/09/19 08:15 Flush - Normal Saline IVF 10 ml Q12HR PRN Administration Saline Flush Zolpidem Tartrate 5 mg 06/08/19 21:28 06/09/19 20:58 Ambien PO 5 mg HSPRN PRN Administration Insomnia - Exam General Appearance: NAD, awake alert General - other findings: some muscle atrophy Eye: PERRL, anicteric sclera ENT: normocephalic atraumatic, no oropharyngeal lesions Neck: supple, symmetric, no JVD Heart: RRR, no murmur, no gallops, no rubs Respiratory: CTAB, no wheezes, no rales, no ronchi Gastrointestinal: soft, non-distended, normal bowel sounds. negative: no guarding, no rigidity Gastrointestinal - other findings: diffuse mild tenderness Extremities: no cyanosis, no clubbing, no edema Skin: normal turgor, no lesions, no rashes Neurological: cranial nerve grossly intact, normal sensation to touch, no focal deficits, no new deficit Musculoskeletal: normal tone, normal strength, no muscle wasting Hosp A/P - Plan This is 63 year old female transferred back from [facility] after acute pancreatitis episode. She had percutaneous biliary catheter placement s/p exchange 06/06 Acute pancreatitis secondary to ampullary stricture s/p percutaneous biliary catheter placement and exchange 06/06 - discussion with Dr. Alfonso Riley on Wednesday about repeat balloon dilation for biliary transhepatic drain - on norco prn, will do IV morphine prn for now - tylenol prn as well - add laxatives Anemia - stable, hemoglobin 10, no bleeding Type II DM - sliding scale - on metformin at home - blood sugars achs Hypertension- amlodipine Neuropathy - lyrica Restless leg syndrome - ropinirole GERD - protonix Code status: full code
[2019-06-09] MEDS: Morphine 2 MG/ML SYRINGE SLOW IVP PRN (23:56)
[2019-06-10] MEDS: HYDROcodone/Acetaminophen 7.5/325 mg Tablet PO PRN ×4 (03:58→20:07)
[2019-06-10] MEDS: Morphine 2 MG/ML SYRINGE SLOW IVP PRN ×2 (05:52→18:29)
[2019-06-10] MEDS: Potassium Chloride 20 MEQ TAB PO SCH ×2 (08:33→18:23)
[2019-06-10] MEDS: Amlodipine 10 MG TAB PO SCH (08:37)
[2019-06-10] MEDS: Pregabalin 75 MG CAP PO SCH ×3 (08:37→20:07)
[2019-06-10] MEDS: Famotidine/PF 20 mg/2ml Vial SLOW IVP SCH ×2 (08:38→20:08)
[2019-06-10] MEDS: cloNIDine 0.2 MG TAB PO SCH ×2 (08:38→20:08)
--- NOTE | 2019-06-10 12:53 | PRG ---
DATE OF SERVICE: 06/10/2019 SUBJECTIVE: Ms. Qureshi has epigastric periumbilical abdominal pain that is chronic. She has some pain around the PTC tube as well. OBJECTIVE: VITAL SIGNS: Temperature is 97.4, blood pressure 102/79, pulse 93. GENERAL: She is in no acute distress. Awake and alert. LUNGS: Clear to auscultation bilaterally. HEART: Regular rate and rhythm. ABDOMEN: Mild tenderness in the epigastric region without guarding. Bowel sounds are present. EXTREMITIES: No lower extremity edema. IMPRESSION: Complicated duodenal ulcer previously requiring gastrojejunostomy. She has had stricturing and obstruction of the bile duct related to this as well. She went for percutaneous transhepatic cholangiogram and placement of biliary drain at [facility] and has since been transferred back. Dr. Riley with Radiology is our interventional physician who deals with these tubes. He will be back on Wednesday. We will ask for his opinion regarding management if this can be dilated and internalized for an internal-external drain. For now, we are just monitoring and symptomatic control. RECOMMENDATIONS: Supportive care and await opinion from Interventional Radiology on Wednesday. Job ID: [id number]
--- NOTE | 2019-06-10 16:31 | PDOC.HOSPP ---
- Subjective Encounter Date: 06/10/19 Encounter Time: 16:30 Subjective: Patient seen and examined. No new complaints. No overnight events. pain under control. Bowels are moving. No N/V. - Objective Vital Signs & Weight: Vital Signs (12 hours) Temp Pulse Pulse Pulse Resp BP BP 06/10/19 12:00 97.5 F L 84 14 06/10/19 09:39 96 102 H 122/79 06/10/19 08:38 122/79 06/10/19 08:37 93 122/79 06/10/19 07:20 97.4 F L 93 16 BP BP Pulse Ox 06/10/19 12:00 109/70 95 06/10/19 09:39 120/83 06/10/19 08:38 06/10/19 08:37 06/10/19 07:20 122/79 98 Weight Weight 96 lb I&O: 06/09/19 06/10/19 06/11/19 06:59 06:59 05:59 Intake Total 400 480 887 Output Total 550 900 275 Balance -150 -420 612 Result Diagrams: 06/09/19 05:32 06/09/19 05:33 Additional Labs: Accuchecks 06/10/19 06/10/19 06/09/19 12:39 06:00 21:08 POC Glucose 124 H 116 H 94 06/09/19 16:33 POC Glucose 185 H Hospitalist ROS - Medication Medications: Active Medications Generic Name Dose Route Start Last Admin Trade Name Freq PRN Reason Stop Dose Admin Hydrocodone Bitart/Acetaminophen 1 tab 06/08/19 20:03 06/10/19 15:31 Wheeler 7.5/325 PO 1 tab Q4H PRN Administration Moderate Pain (4-6) Amlodipine Besylate 10 mg 06/09/19 09:00 06/10/19 08:37 Norvasc PO 10 mg DAILY HANNAH Administration Clonidine 0.2 mg 06/09/19 09:00 06/10/19 08:38 Catapres PO 0.2 mg BID HANNAH Administration Famotidine 20 mg 06/08/19 21:00 06/10/19 08:38 Pepcid SLOW IVP 20 mg Q12HR HANNAH Administration Insulin Human Lispro 0 units 06/09/19 12:22 06/09/19 17:37 Humalog SC 2 unit .MILD SLIDING SCALE PRN Administration Mild Correctional Scale Morphine Sulfate 2 mg 06/09/19 21:57 06/10/19 05:52 Morphine SLOW IVP 2 mg Q4H PRN Administration Severe Pain (7-10) Pantoprazole Sodium 40 mg 06/09/19 09:00 06/10/19 08:38 Protonix PO 40 mg BID HANNAH Administration Potassium Chloride 20 meq 06/09/19 08:00 06/10/19 08:33 K-Dur PO 20 meq BID-WM HANNAH Administration Pregabalin 150 mg 06/09/19 09:00 06/10/19 15:28 Lyrica PO 150 mg TID HANNAH Administration Ropinirole HCl 0.5 mg 06/09/19 21:00 06/09/19 20:58 Requip PO 0.5 mg HS HANNAH Administration Sodium Chloride 10 ml 06/08/19 20:03 06/09/19 08:15 Flush - Normal Saline IVF 10 ml Q12HR PRN Administration Saline Flush Zolpidem Tartrate 5 mg 06/08/19 21:28 06/09/19 20:58 Ambien PO 5 mg HSPRN PRN Administration Insomnia - Exam General Appearance: NAD Eye: anicteric sclera ENT: normocephalic atraumatic Neck: supple Heart: RRR Respiratory: CTAB Gastrointestinal: soft Extremities: no edema Skin: normal turgor Neurological: no weakness Hosp A/P (1) Duodenal ulcer, perforated Code(s): K26.5 - CHRONIC OR UNSPECIFIED DUODENAL ULCER WITH PERFORATION Status : Acute (2) Diabetes type 2, controlled Code(s): E11.9 - TYPE 2 DIABETES MELLITUS WITHOUT COMPLICATIONS Status: Chronic Qualifiers: Diabetes mellitus terminal superintendent insulin use: with terminal superintendent use Diabetes mellitus complication status: with hyperglycemia Qualified Code(s): E11.65 - Type 2 diabetes mellitus with hyperglycemia; Z79.4 - FPC (current) use of insulin (3) Dyslipidemia Code(s): E78.5 - HYPERLIPIDEMIA, UNSPECIFIED Status: Chronic (4) HTN (hypertension) Code(s): I10 - ESSENTIAL (PRIMARY) HYPERTENSION Status: Chronic Qualifiers: Hypertension type: essential hypertension Qualified Code(s): I10 - Essential (primary) hypertension - Plan pain controlled. bowels moving. No N/V BS controlled Plan to talk with Dr Riley on Wednesday. Appreciated GI input.
[2019-06-10] MEDS: Zolpidem Tartrate 5 MG TAB PO PRN (20:07)
[2019-06-10] MEDS: rOPINIRole HCl 0.5 MG TAB PO SCH (20:07)
[2019-06-11] MEDS: Morphine 2 MG/ML SYRINGE SLOW IVP PRN ×5 (00:19→22:45)
[2019-06-11] MEDS: HYDROcodone/Acetaminophen 7.5/325 mg Tablet PO PRN ×3 (06:19→22:46)
[2019-06-11] MEDS: Potassium Chloride 20 MEQ TAB PO SCH ×2 (09:14→18:14)
[2019-06-11] MEDS: cloNIDine 0.2 MG TAB PO SCH ×2 (09:14→20:06)
[2019-06-11] MEDS: Amlodipine 10 MG TAB PO SCH (09:15)
[2019-06-11] MEDS: Pregabalin 75 MG CAP PO SCH ×3 (09:16→20:06)
[2019-06-11] MEDS: Famotidine/PF 20 mg/2ml Vial SLOW IVP SCH ×2 (09:19→22:47)
--- NOTE | 2019-06-11 12:55 | PDOC.HOSPP ---
- Subjective Encounter Date: 06/11/19 Encounter Time: 12:54 Subjective: c/o pain on moving around. No N/V. - Objective Vital Signs & Weight: Vital Signs (12 hours) Temp Pulse Resp BP BP Pulse Ox 06/11/19 11:41 98.0 F 107 H 18 107/69 98 06/11/19 09:15 96 116/71 06/11/19 09:14 116/71 06/11/19 08:00 98.2 F 96 18 116/71 96 06/11/19 04:11 98.3 F 98 16 139/83 100 Weight Weight 96 lb I&O: 06/10/19 06/11/19 06/12/19 07:59 06:59 06:59 Intake Total Output Total Balance Result Diagrams: 06/09/19 05:32 06/09/19 05:33 Additional Labs: Accuchecks 06/11/19 06/11/19 06/10/19 05:47 00:00 21:06 POC Glucose 141 H 115 H 125 H 06/10/19 16:35 POC Glucose 141 H Hospitalist ROS - Medication Medications: Active Medications Generic Name Dose Route Start Last Admin Trade Name Freq PRN Reason Stop Dose Admin Hydrocodone Bitart/Acetaminophen 1 tab 06/08/19 20:03 06/11/19 06:19 Humphrey 7.5/325 PO 1 tab Q4H PRN Administration Moderate Pain (4-6) Amlodipine Besylate 10 mg 06/09/19 09:00 06/11/19 09:15 Norvasc PO 10 mg DAILY HANNAH Administration Clonidine 0.2 mg 06/09/19 09:00 06/11/19 09:14 Catapres PO 0.2 mg BID HANNAH Administration Famotidine 20 mg 06/08/19 21:00 06/11/19 09:19 Pepcid SLOW IVP 20 mg Q12HR HANNAH Administration Insulin Human Lispro 0 units 06/09/19 12:22 06/09/19 17:37 Humalog SC 2 unit .MILD SLIDING SCALE PRN Administration Mild Correctional Scale Morphine Sulfate 2 mg 06/09/19 21:57 06/11/19 09:41 Morphine SLOW IVP 2 mg Q4H PRN Administration Severe Pain (7-10) Pantoprazole Sodium 40 mg 06/09/19 09:00 06/11/19 09:14 Protonix PO 40 mg BID HANNAH Administration Potassium Chloride 20 meq 06/09/19 08:00 06/11/19 09:14 K-Dur PO 20 meq BID-WM HANNAH Administration Pregabalin 150 mg 06/09/19 09:00 06/11/19 09:16 Lyrica PO 150 mg TID HANNAH Administration Ropinirole HCl 0.5 mg 06/09/19 21:00 06/10/19 20:07 Requip PO 0.5 mg HS HANNAH Administration Sodium Chloride 10 ml 06/08/19 20:03 06/11/19 09:41 Flush - Normal Saline IVF 10 ml Q12HR PRN Administration Saline Flush Zolpidem Tartrate 5 mg 06/08/19 21:28 06/10/19 20:07 Ambien PO 5 mg HSPRN PRN Administration Insomnia - Exam General Appearance: NAD Eye: anicteric sclera ENT: normocephalic atraumatic Neck: supple Heart: RRR Respiratory: CTAB Gastrointestinal: soft Extremities: no edema Skin: normal turgor Neurological: no weakness Musculoskeletal: normal tone Hosp A/P (1) Duodenal ulcer, perforated Code(s): K26.5 - CHRONIC OR UNSPECIFIED DUODENAL ULCER WITH PERFORATION Status : Acute (2) Diabetes type 2, controlled Code(s): E11.9 - TYPE 2 DIABETES MELLITUS WITHOUT COMPLICATIONS Status: Chronic Qualifiers: Diabetes mellitus mcc insulin use: with mcc use Diabetes mellitus complication status: with hyperglycemia Qualified Code(s): E11.65 - Type 2 diabetes mellitus with hyperglycemia; 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 No N/V Plan to talk with Dr Riley on Wednesday. Appreciated GI input.
--- NOTE | 2019-06-11 15:19 | PRG ---
DATE OF SERVICE: 06/11/2019 SUBJECTIVE: Ms. Qureshi has some mild recurrent intermittent epigastric abdominal pain. This has been stable. OBJECTIVE: VITAL SIGNS: Temperature 98.0, pulse 96 to 107, and blood pressure 107/69. GENERAL: She is in no acute distress. Alert and oriented x3. LUNGS: Clear to auscultation bilaterally. HEART: Regular rate and rhythm without murmur. ABDOMEN: Soft, nontender, and nondistended. Bowel sounds present. EXTREMITIES: No lower extremity edema. LABORATORY DATA: No new labs today. IMPRESSION: Biliary obstruction related to ulcer and inflammatory process and scar in the duodenum from prior duodenal ulcer. She is status post gastrojejunostomy. Her bile duct was not accessible by ERCP. She ultimately underwent PTC in [place] and had an internal-external drain placed. Initially, she had an 8.5-Slovenian drain placed and then was changed to a 10-Slovenian drain and she had balloon dilation of lower biliary stricture to 6 mm. RECOMMENDATION: Consult Interventional Radiology tomorrow, Dr. Riley, to see if further intervention and bile duct dilation can be achieved along with continued internal-external drain. Ultimately, if balloon dilation of the biliary stricture is not successful, then surgical choledochojejunostomy might have to be considered. Job ID: [id number]
[2019-06-11] MEDS: rOPINIRole HCl 0.5 MG TAB PO SCH (20:05)
[2019-06-11] MEDS: Zolpidem Tartrate 5 MG TAB PO PRN (22:46)
[2019-06-12] MEDS: diphenhydrAMINE 50 MG/ML VIAL IVP PRN (00:55)
[2019-06-12] MEDS: HYDROcodone/Acetaminophen 7.5/325 mg Tablet PO PRN ×2 (04:16→09:42)
[2019-06-12] MEDS: Morphine 2 MG/ML SYRINGE SLOW IVP PRN ×3 (04:16→22:24)
[2019-06-12] MEDS: cloNIDine 0.2 MG TAB PO SCH ×2 (08:48→20:34)
[2019-06-12] MEDS: Potassium Chloride 20 MEQ TAB PO SCH (08:49)
[2019-06-12] MEDS: Pregabalin 75 MG CAP PO SCH ×3 (08:50→20:32)
[2019-06-12] MEDS: Amlodipine 10 MG TAB PO SCH (08:53)
[2019-06-12] MEDS: Famotidine/PF 20 mg/2ml Vial SLOW IVP SCH (08:53)
--- NOTE | 2019-06-12 11:05 | PRG ---
DATE OF SERVICE: 06/12/[address] Dubose this morning. 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 She had PTC catheter placed in [place]. It was upsized and she has had one dilation, but just this past she will need a sequential dilations of this ampullary stricture; however, those do not have to be done as an inpatient. She is temporized for now and perfectly stable for discharge. My plan was to recheck her liver function tests tomorrow. We will arrange for her to come back for outpatient dilation per Dr. Riley, and I suspect she will be ready for discharge tomorrow. Job ID: [id number]
--- NOTE | 2019-06-12 16:07 | PDOC.HOSPP ---
- Subjective Encounter Date: 06/12/19 Encounter Time: 16:04 Subjective: Patient seen and examined for Biliary stricture. Abd pain controlled. No new complaints. No overnight events - Objective Vital Signs & Weight: Vital Signs (12 hours) Temp Pulse Resp BP BP Pulse Ox 06/12/19 11:49 97.7 F 91 16 101/67 97 06/12/19 08:53 96 118/78 06/12/19 08:48 118/78 06/12/19 08:00 97.7 F 96 16 118/78 98 Weight Weight 96 lb I&O: 06/11/19 06/12/19 06/13/19 06:59 06:59 06:59 Intake Total Output Total 900 Balance -900 Result Diagrams: 06/09/19 05:32 06/09/19 05:33 Additional Labs: Accuchecks 06/12/19 06/12/19 06/11/19 12:24 05:08 20:35 POC Glucose 124 H 119 H 124 H 06/11/19 17:33 POC Glucose 121 H Hospitalist ROS - Review of Systems Respiratory: denies: cough, dry, shortness of breath, hemoptysis, SOB with excertion, pleuritic pain, sputum, wheezing, other Cardiovascular: denies: chest pain, palpitations, orthopnea, paroxysmal noc. dyspnea, edema, light headedness, other Gastrointestinal: reports: abdominal pain (improving). denies: nausea, vomiting , diarrhea, constipation, melena, hematochezia, other - Medication Medications: Active Medications Generic Name Dose Route Start Last Admin Trade Name Freq PRN Reason Stop Dose Admin Amlodipine Besylate 10 mg 06/09/19 09:00 06/12/19 08:53 Norvasc PO 10 mg DAILY HANNAH Administration Clonidine 0.2 mg 06/09/19 09:00 06/12/19 08:48 Catapres PO 0.2 mg BID HANNAH Administration Diphenhydramine HCl 25 mg 06/12/19 00:51 06/12/19 00:55 Benadryl IVP 25 mg Q6H PRN Administration Itching & Insomnia Insulin Human Lispro 0 units 06/09/19 12:22 06/09/19 17:37 Humalog SC 2 unit .MILD SLIDING SCALE PRN Administration Mild Correctional Scale Pantoprazole Sodium 40 mg 06/09/19 09:00 06/12/19 08:49 Protonix PO 40 mg BID HANNAH Administration Pregabalin 150 mg 06/09/19 09:00 06/12/19 15:41 Lyrica PO 150 mg TID HANNAH Administration Ropinirole HCl 0.5 mg 06/09/19 21:00 06/11/19 20:05 Requip PO 0.5 mg HS HANNAH Administration Sodium Chloride 10 ml 06/08/19 20:03 06/12/19 09:48 Flush - Normal Saline IVF 10 ml Q12HR PRN Administration Saline Flush Zolpidem Tartrate 5 mg 06/08/19 21:28 06/11/19 22:46 Ambien PO 5 mg HSPRN PRN Administration Insomnia - Exam General Appearance: NAD Heart: RRR, no gallops Respiratory: CTAB, no rales Gastrointestinal: soft, non-distended, normal bowel sounds Extremities: no edema Hosp A/P - Plan DVT proph w/SCDs Biliary stricture HTN DM2 GERD PLAN: GI/Surg following DC PO Potassium DC IV Pepcid CMP in AM Pain control Consult CM for walker
[2019-06-12] MEDS: rOPINIRole HCl 0.5 MG TAB PO SCH (20:34)
[2019-06-12] MEDS: HYDROcodone/Acetaminophen 10/325 mg Tablet PO PRN (20:43)
[2019-06-12] MEDS: Zolpidem Tartrate 5 MG TAB PO PRN (20:44)
[2019-06-13] MEDS: HYDROcodone/Acetaminophen 10/325 mg Tablet PO PRN ×3 (00:18→14:34)
[2019-06-13] MEDS: Morphine 2 MG/ML SYRINGE SLOW IVP PRN (04:05)
[2019-06-13 06:19] LABS: ALT (SGPT) 14 U/L (8-55); AST (SGOT) 16 U/L (5-34); Alkaline Phosphatase 138 U/L (40-110); Anion Gap 16 mmol/L (10-20); BUN (Urea Nitrogen) 23 mg/dL (9.8-20.1); Bilirubin, Total 0.4 mg/dL (0.2-1.2); Calc. Creatinine Clearance 41 mL/min (70-130); Calcium 10.1 mg/dL (7.8-10.44); Carbon Dioxide 13 mmol/L (23-31); Chloride 111 mmol/L (98-107); Estimated GFR-MDRD 58; Globulin 4.3 g/dL (2.4-3.5); Glucose 134 mg/dL (80-115); Potassium 4.1 mmol/L (3.5-5.1); Protein, Total 8.3 g/dL (6.0-8.3); Sodium 136 mmol/L (136-145)
[2019-06-13] MEDS: diphenhydrAMINE 50 MG/ML VIAL IVP PRN (06:49)
[2019-06-13] MEDS: Pregabalin 75 MG CAP PO SCH ×2 (09:15→14:29)
--- NOTE | 2019-06-13 10:57 | PRG ---
DATE OF SERVICE: 06/13/2019 SUBJECTIVE: Ms. Qureshi is complaining of pain at her drain site. Otherwise, she is eating and feeling okay. She is afebrile. OBJECTIVE: VITAL SIGNS: Her vital signs are stable. ABDOMEN: Soft, minimally tender like usual, but no guarding or peritonitis. LABORATORY DATA: This morning are all normal in terms of her liver function tests. Her alkaline phosphatase is only minimally elevated at 138. ASSESSMENT: Likely ampullary stricture after duodenal stump leak after antrectomy, gastrojejunostomy, PTC catheter placed in [place]. PLAN: Dr. Riley is going to be available to perform sequential dilations through the PTC catheter, but this can be done as an outpatient. She is stable for discharge home today. Her liver tests are normal. My office will arrange for that outpatient procedure to be done. Job ID: [id number]
[2019-06-13] MEDS ORDERED: Sodium Bicarbonate 150 MEQ in Dextrose 5% in Water 1,000 ML IV SCH (11:00)
[2019-06-13 11:03] VITALS: BP 105/73; TEMP 97.1
[2019-06-13] MEDS ORDERED: diphenhydrAMINE 25 MG CAP PO PRN (11:14)
[2019-06-13] MEDS: cloNIDine 0.2 MG TAB PO SCH (13:33)
[2019-06-13] MEDS: Amlodipine 10 MG TAB PO SCH (13:33)
[2019-06-13] MEDS ORDERED: Sodium Bicarbonate Tab 325 MG TAB PO SCH ×2 (16:45→21:00)
[2019-06-13] MEDS ORDERED: Potassium Citrate 10 MEQ TAB PO SCH (17:00)
[2019-06-13] MEDS: HumaLOG 300 UNITS/3 ML VIAL SC PRN (17:01)
--- NOTE | 2019-06-14 12:24 | DIS ---
DATE OF ADMISSION: 06/08/2019 DATE OF DISCHARGE: 06/13/2019 DISCHARGE DISPOSITION: Home. FOLLOWUP: 1. Follow up with Gastroenterology and General Surgery as outpatient. The patient was seen and examined on the day of discharge. Denies any new complaints. 2. Follow up with primary care physician at [facility] in 1 week. ALLERGIES: CIPROFLOXACIN. DISCHARGE MEDICATIONS: 1. Potassium citrate 10 mEq b.i.d. 2. Clonidine 0.2 mg b.i.d. 3. Amlodipine 10 mg daily. 4. Tylenol No. 3 as needed. 5. Tramadol as needed. 6. Zanaflex as needed. 7. Requip 0.5 mg q.h.s. 8. Lyrica 150 mg 3 times daily. 9. Protonix 40 mg b.i.d. 10. Metformin 500 mg b.i.d. Basic metabolic profile after 1 week is recommended. Primary care physician advised to follow. SIGNIFICANT LABORATORY DATA: Hemoglobin 10.3. Bicarbonate on admission was 13. On admission was 19. LFTs showed total bilirubin 0.4 with AST 11, ALT 13, alkaline phosphatase 149. INPATIENT BUGGY RUNNER: Gastroenterology, Dr. Dubose and General Surgery, Dr. Morgan. BRIEF HOSPITAL COURSE: The patient is a 63-year-old female with recent acute pancreatitis along with biliary obstruction, returned from [facility] due to persistent abdominal pain. Please refer to the discharge summary for further details. ERCP was attempted, however, was not successful. Due to persistent pain, she was transferred to this facility. The patient was evaluated by Gastroenterology as well as General Surgery. She currently has a biliary drain that was placed at [facility]. She will follow up with the outpatient radiology, Dr. Riley, for sequential dilatation through the PTC catheter. She has been cleared by consultants for discharge. FINAL DIAGNOSES: 1. Recent acute pancreatitis secondary to biliary obstruction, resolved. Please note the patient had external biliary drain placed at [facility]. She failed endoscopic retrograde cholangiopancreatography. 2. History of gastrojejunostomy in the past for duodenal ulcer. 3. Diabetes mellitus, type 2. 4. Hypertension. 5. Degenerative joint disease. 6. Osteoporosis. 7. Acute pain secondary to #1. 8. Chronic metabolic acidosis. She received three ampules of sodium bicarbonate and IV fluids at discharge. She has been started on potassium citrate. Repeat basic metabolic profile next week is recommended. 9. Hypertension. 10. Peripheral neuropathy. 11. Restless legs syndrome. PLAN: Plan of care was discussed with the patient in detail. She stated understanding. Job ID: [id number]
== END 2019-06-13 18:16 | disposition home or self-care (01) | DRG 919 ==
LOC: SURG A 16:55
PROVIDERS: ADMIT Internal Medicine; ATTEND Internal Medicine
DX: T85.848A Pain due to other internal prosthetic devices, implants and grafts, initial encounter (principal); K83.1 Obstruction of bile duct; K26.5 Chronic or unspecified duodenal ulcer with perforation; E11.9 Type 2 diabetes mellitus without complications; I10 Essential (primary) hypertension; G25.81 Restless legs syndrome; M81.0 Age-related osteoporosis without current pathological fracture; D64.9 Anemia, unspecified; G62.9 Polyneuropathy, unspecified; K21.9 Gastro-esophageal reflux disease without esophagitis; E78.5 Hyperlipidemia, unspecified; Y84.8 Other medical procedures as the cause of abnormal reaction of the patient, or of later complication, without mention of misadventure at the time of the procedure; M19.90 Unspecified osteoarthritis, unspecified site; Z90.49 Acquired absence of other specified parts of digestive tract; Z88.1 Allergy status to other antibiotic agents
CPT/HCPCS: 36415; 36416; 80053; 85025; J1200; J2270; J7070; Q0163; S0028

== ENCOUNTER 2019-07-07 23:30 | Inpatient (IN) | payer OTHER, SELFPAY ==
--- NOTE | 2019-07-08 00:08 | CT ---
CT BRAIN NONCONTRAST: DATE: 07/08/2019 HISTORY: 63-year-old female status post head trauma from fall due to syncope FINDINGS: There is no evidence of acute intra-axial or extra-axial hemorrhage. There is no midline shift or any other mass effect. There is no extra-axial fluid collection. There is no evidence of obstructive hydrocephalus. Calvarium is intact. IMPRESSION: No acute intracranial findings.
[2019-07-08 00:10] LABS: #Basophils 0.1 thou/uL (0.0-0.2); #Eosinphils 0.2 thou/uL (0.0-0.7); #Lymphocytes 1.6 thou/uL (1.20-3.40); #Monocytes 0.5 thou/uL (0.11-0.59); #Neutrophils 5.5 thou/uL (1.40-6.50); %Basophils 0.8 % (0.0-1.0); %Eosinophils 2.5 % (0.0-10.0); %Lymphocytes 20.2 % (21.0-51.0); %Neutrophils 70.5 % (42.0-75.0); Hemoglobin 9.6 g/dL (12.0-16.0); Mean Corpuscular HGB CONC 32.8 g/dL (32.0-36.0); Mean Corpuscular Hemoglobin 28.4 pg (27.0-31.0); Mean Corpuscular Volume 86.5 fL (78.0-98.0); Mean Platelet Volume 8.2 fL (7.4-10.4); Platelet Count 475 thou/uL (130-400); RBC Distribution Width 12.8 % (11.5-14.5); Red Blood Cell (RBC) Count 3.39 mill/uL (4.20-5.40); White Blood Cell (WBC) Count 7.8 thou/uL (4.8-10.8)
[2019-07-08 00:28] LABS: ALT (SGPT) 14 U/L (8-55); AST (SGOT) 20 U/L (5-34); Albumin 3.2 g/dL (3.4-4.8); Alkaline Phosphatase 102 U/L (40-110); Anion Gap 13 mmol/L (10-20); BUN (Urea Nitrogen) 17 mg/dL (9.8-20.1); Bilirubin, Total 0.3 mg/dL (0.2-1.2); Calc. Creatinine Clearance 0 mL/min (70-130); Calcium 8.5 mg/dL (7.8-10.44); Carbon Dioxide 16 mmol/L (23-31); Chloride 112 mmol/L (98-107); Estimated GFR-MDRD 46; Globulin 3.5 g/dL (2.4-3.5); Glucose 247 mg/dL (80-115); Magnesium 1.3 mg/dL (1.6-2.6); Potassium 3.1 mmol/L (3.5-5.1); Protein, Total 6.7 g/dL (6.0-8.3); Sodium 138 mmol/L (136-145)
[2019-07-08 00:32] LABS: Bilirubin Negative (Negative); Blood, Urine Negative (Negative); Clarity Clear (Clear); Glucose, Urine (Dipstick) Normal (Negative); Leukocyte Negative Leu/uL (Negative); Nitrite Negative (Negative); Protein, Urine (Dipstick) 20 mg/dL (Neg-Trace); Urobilinogen Normal mg/dL (Less than 2)
[2019-07-08] MEDS ORDERED: Magnesium 2 GM/50 ML BAG (IN WATER) ONE (00:46)
[2019-07-08 03:36] VITALS: BMI 22.6
--- NOTE | 2019-07-08 03:51 | HP ---
CHIEF COMPLAINT: Syncope. HISTORY OF PRESENT ILLNESS: Patient is a 63-year-old female with a very complicated surgical history who presents to the hospital with complaints of syncope. Patient recently was released from the hospital on June 13 for recurrent pancreatitis secondary to biliary obstruction. She had a biliary drain that was placed in [facility]. She presents today to the hospital with complaints of syncope. Patient's family who is at the bedside states that patient went up to get up to the bathroom. She then had a syncopal episode in the bathroom. Patient denies any chest pain or palpitations prior to this event. Patient's daughter who was at the bedside stated that she did not hit her head. Her was close by to catch her. They then called EMS and patient was brought into the hospital. Patient was found to be very hypotensive in the field and was given some IV fluids. According to the patient's daughter, she has not been drinking very much or not even eating very much. However, she did have a very well Thanksgiving meal on . The patient has been taking her medications. She also has some significant amount of weight loss. PAST MEDICAL HISTORY: As of the following; 1. Hypertension. 2. Peptic ulcer disease. 3. Diabetes, type 2. 4. Hypertension. 5. Osteoporosis. 6. Restless legs syndrome. 7. Recurrent pancreatitis. PAST SURGICAL HISTORY: She has had a bowel resection, appendectomy, cholecystectomy. She had a gastrectomy for ulcer, status post percutaneous biliary catheter placement. SOCIAL HISTORY: She denies any alcohol use, drug use, or smoking history. She is a full code. Lives with her family. FAMILY HISTORY: No history of heart disease or stroke. MEDICATIONS: 1. She is on clonidine. 2. She is on metformin. 3. She is on pantoprazole. 4. Pregabalin. 5. Tizanidine. 6. Amlodipine. 7. Potassium chloride. REVIEW OF SYSTEMS: All negative, except for the ones mentioned above in the HPI. PHYSICAL EXAMINATION: VITAL SIGNS: As the following. Her temperature is 98.8, blood pressure of 120/60, heart rate of 60, and she is 99% on room air. GENERAL: She is sleeping, easily arousable, oriented x3. HEENT: Normocephalic and atraumatic. No lymphadenopathy noted. Pupils equal and reactive to light. CV: S1 and S2 present. No murmurs, rubs, or gallops. LUNGS: Clear to auscultation. No rhonchi or wheezes noted. ABDOMEN: Soft. Bowel sounds are present x2. Mild pain upon palpation to her lower abdominal area. She does have a biliary tube that has brownish greenish color fluid. NEUROVASCULAR: No focal deficits noted. SKIN: No cuts, lesions, or bruises noted. LABORATORY RESULTS: As of the following; WBCs of 7.8, hemoglobin 9.6, hematocrit of 29.3, and platelets of 475. Her chemistry; sodium , potassium of 3.1, her bicarb is 16, BUN of 17, creatinine of 1.18, and glucose is 247. Her magnesium was 1.3. BNP was 45.2. Her troponin x1 was negative. She did have a CT head and a chest x-ray. The CT head indicated no acute abnormalities and a chest x-ray according to my interpretation, no infiltrates are noted. ASSESSMENT AND PLAN: Patient is a very pleasant 63-year-old female, who presents to the hospital with syncopal episode. 1. Syncope, cardiac versus orthostatic hypotension versus neurogenic. Patient was pretty hypotensive. She is on clonidine and Norvasc. We will hold that for now. She has been hydrated. We will continue with some gentle hydration. We will check an echocardiogram. We will trend the troponins. She does not have any sign of infectious etiology at this time. Her WBCs are normal. She denies any fevers or chills. She has some cough, however, that is about it. 2. Electrolyte imbalance. We will replace her electrolytes. Continue to monitor. 3. Non-anion gap metabolic acidosis. I have started her on some bicarb. I am not sure if she might benefit from some continuous bicarb or may consult Nephrology for further recommendations. She also has recurrent pancreatitis. I am not sure if this lady would benefit from some Creon. I will defer that to GI. 4. Diabetes. We will continue her metformin. Continue to monitor. 5. Acute kidney injury. We will continue some IV hydration. Her baseline creatinine is 0.9. Today, she is 1.18. 6. Deep venous thrombosis prophylaxis. We will put patient on some SCDs and maybe subcu Lovenox. Job ID: [id number]
[2019-07-08] MEDS: Sodium Chloride 0.9% 1,000 ML IV SCH ×2 (04:52→14:19)
[2019-07-08] MEDS ORDERED: HumaLOG 300 UNITS/3 ML VIAL SC PRN (05:07)
[2019-07-08] MEDS ORDERED: Dextrose 50% Abboject 50 ML SYRINGE SLOW IVP PRN (05:07)
[2019-07-08] MEDS ORDERED: Dextrose 5% in Water 1,000 ML IV PRN (05:07)
[2019-07-08 05:13] LABS: #Eosinphils 0.2 thou/uL (0.0-0.7); #Lymphocytes 1.8 thou/uL (1.20-3.40); #Monocytes 0.4 thou/uL (0.11-0.59); #Neutrophils 2.9 thou/uL (1.40-6.50); %Basophils 0.3 % (0.0-1.0); %Eosinophils 3.8 % (0.0-10.0); %Lymphocytes 33.2 % (21.0-51.0); %Monocytes 7.8 % (0.0-10.0); Hemoglobin 9.9 g/dL (12.0-16.0); Mean Corpuscular HGB CONC 33.9 g/dL (32.0-36.0); Mean Corpuscular Hemoglobin 29.6 pg (27.0-31.0); Mean Corpuscular Volume 87.3 fL (78.0-98.0); Mean Platelet Volume 8.1 fL (7.4-10.4); Platelet Count 410 thou/uL (130-400); Red Blood Cell (RBC) Count 3.34 mill/uL (4.20-5.40); White Blood Cell (WBC) Count 5.3 thou/uL (4.8-10.8)
[2019-07-08 05:32] LABS: Anion Gap 12 mmol/L (10-20); BUN (Urea Nitrogen) 14 mg/dL (9.8-20.1); Calc. Creatinine Clearance 47 mL/min (70-130); Calcium 8.3 mg/dL (7.8-10.44); Carbon Dioxide 14 mmol/L (23-31); Chloride 117 mmol/L (98-107); Estimated GFR-MDRD 69; Glucose 150 mg/dL (80-115); Magnesium 2.2 mg/dL (1.6-2.6); Potassium 3.6 mmol/L (3.5-5.1); Sodium 139 mmol/L (136-145)
[2019-07-08 05:39] LABS: Troponin I Less than 0.010 ng/mL (< 0.028)
[2019-07-08 07:05] LABS: Troponin I Less than 0.010 ng/mL (< 0.028)
[2019-07-08] MEDS: Potassium Citrate 10 MEQ TAB PO SCH ×2 (07:33→16:09)
[2019-07-08] MEDS: Enoxaparin Sodium 40 MG/0.4 ML SYRINGE SC SCH (07:33)
[2019-07-08] MEDS: Sodium Bicarbonate Tab 325 MG TAB PO SCH ×2 (07:33→20:04)
[2019-07-08] MEDS: Pregabalin 75 MG CAP PO SCH ×3 (07:33→19:54)
[2019-07-08] MEDS: Amlodipine 10 MG TAB PO SCH ×2 (07:34→07:37)
[2019-07-08] MEDS: metFORMIN 500 MG TAB PO SCH ×2 (07:34→16:09)
--- NOTE | 2019-07-08 07:48 | RAD ---
CHEST 1 VIEW: INDICATION: History of unwitnessed fall and syncopal event. COMPARISON: Prior exam of 02/04/2019. FINDINGS: No consolidation is evident. No pleural effusion or pneumothorax is noted. Heart size is normal. N o acute osseous abnormality is evident. There are catheters overlying the upper abdomen and the bili link system. IMPRESSION: No acute cardiopulmonary abnormality. Catheter likely within the liver and biliary system. POS: BH
--- NOTE | 2019-07-08 13:06 | ULT ---
CAROTID DOPPLER: INDICATION: Syncope. TECHNIQUE: Ultrasound Doppler study is performed on the extracranial carotid arteries. Color Doppler with spectral analysis and velocity recordings obtained. FINDINGS: Ultrasound images showed no evidence of significant echogenic plaque and intimal thickening. Velocity recordings were normal bilaterally. Vertebral arteries show antegrade flow. IMPRESSION: Unremarkable carotid Doppler study. No evidence of stenosis and no significant plaque identified. POS: OFF
--- NOTE | 2019-07-08 15:43 | PDOC.HOSPP ---
- Subjective Encounter Date: 07/08/19 Encounter Time: 15:41 Subjective: Ms. Quresih was seen today in follow-up of generalized weakness and pre- syncope. She still feels very weak. She notes a productive cough. - Objective Vital Signs & Weight: Vital Signs (12 hours) Temp Pulse Resp BP BP Pulse Ox 07/08/19 11:22 99.5 F 95 18 162/79 H 98 07/08/19 07:28 97.6 F 76 16 134/69 96 07/08/19 03:47 97.0 F L 78 20 160/74 H 100 Weight Admit Weight 94 lb Weight 94 lb 1.6 oz I&O: 07/07/19 07/08/19 07/09/19 06:59 06:59 06:59 Intake Total 95 Output Total 250 150 Balance -155 -150 Result Diagrams: 07/08/19 04:44 07/08/19 04:44 Additional Labs: Accuchecks 07/08/19 07/08/19 12:20 05:47 POC Glucose 100 116 H Hospitalist ROS - Medication Medications: Active Medications Generic Name Dose Route Start Last Admin Trade Name Freq PRN Reason Stop Dose Admin Amlodipine Besylate 10 mg 07/08/19 09:00 07/08/19 07:37 Norvasc PO Not Given DAILY HANNAH Enoxaparin Sodium 40 mg 07/08/19 09:00 07/08/19 07:33 Lovenox SC 40 mg 0900 HANNAH Administration Sodium Chloride 1,000 mls @ 75 mls/hr 07/08/19 02:30 07/08/19 14:19 Normal Saline 0.9% IV 1,000 mls .[id number] HANNAH Administration Metformin HCl 500 mg 07/08/19 08:00 07/08/19 07:34 Glucophage PO 500 mg BID-WM HANNAH Administration Pantoprazole Sodium 40 mg 07/08/19 09:00 07/08/19 07:35 Protonix PO 40 mg BID HANNAH Administration Potassium Citrate 10 meq 07/08/19 08:00 07/08/19 07:33 Urocit K PO 10 meq BID-WM HANNAH Administration Pregabalin 150 mg 07/08/19 09:00 07/08/19 14:19 Lyrica PO 150 mg TID HANNAH Administration Sodium Bicarbonate 650 mg 07/08/19 09:00 07/08/19 07:33 Bicarbonate, Sodium PO 650 mg BID HANNAH Administration Sodium Chloride 10 ml 07/08/19 09:00 07/08/19 07:35 Flush - Normal Saline IVF 10 ml Q12HR HANNAH Administration - Exam Eye: PERRL Heart: RRR, no murmur, III/IV Respiratory: rales (+ rales bilaterally) Gastrointestinal: soft, non-tender, non-distended, normal bowel sounds, no palpable masses, no hepatomegaly Extremities: no cyanosis, no clubbing, no edema Hosp A/P (1) Acute bronchitis Code(s): J20.9 - ACUTE BRONCHITIS, UNSPECIFIED Status: Acute (2) Pre-syncope Status: Acute (3) Diabetes type 2, controlled Code(s): E11.9 - TYPE 2 DIABETES MELLITUS WITHOUT COMPLICATIONS Status: Chronic Qualifiers: Diabetes mellitus correction insulin use: with termite treater helper use Diabetes mellitus complication status: with hyperglycemia Qualified Code(s): E11.65 - Type 2 diabetes mellitus with hyperglycemia; 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
[2019-07-08] MEDS: Ondansetron PF 4 MG/2 ML Vial IVP PRN ×2 (16:08→23:17)
[2019-07-08] MEDS: traMADol HCl 50 MG TAB PO PRN (16:09)
[2019-07-08] MEDS: Acetaminophen 325 MG TAB PO PRN ×2 (16:09→19:56)
[2019-07-08] MEDS ORDERED: hydrALAZINE 25 MG TAB PO PRN (19:41)
[2019-07-08] MEDS ORDERED: hydrALAZINE 20 MG/ML VIAL SLOW IVP PRN (19:42)
[2019-07-08] MEDS: rOPINIRole HCl 0.5 MG TAB PO SCH (20:04)
[2019-07-09] MEDS: Acetaminophen/Codeine 30-300mg Tablet PO PRN ×3 (00:01→19:51)
[2019-07-09] MEDS: metFORMIN 500 MG TAB PO SCH ×2 (09:59→18:56)
[2019-07-09] MEDS: Potassium Citrate 10 MEQ TAB PO SCH ×2 (09:59→19:48)
[2019-07-09] MEDS: Amlodipine 10 MG TAB PO SCH (09:59)
[2019-07-09] MEDS: Azithromycin 250 MG TAB PO SCH (09:59)
[2019-07-09] MEDS: Enoxaparin Sodium 40 MG/0.4 ML SYRINGE SC SCH (10:00)
[2019-07-09] MEDS: Pregabalin 75 MG CAP PO SCH ×3 (10:00→20:58)
[2019-07-09] MEDS: Sodium Bicarbonate Tab 325 MG TAB PO SCH ×2 (10:01→20:58)
[2019-07-09] MEDS: Ondansetron PF 4 MG/2 ML Vial IVP PRN ×2 (11:58→18:15)
--- NOTE | 2019-07-09 12:14 | PDOC.HOSPP ---
- Subjective Encounter Date: 07/09/19 Encounter Time: 12:12 Subjective: Ms. Qureshi was seen today in follow-up. She does not feel much better. She is still coughing, and has no appetite. She appears ill. - Objective Vital Signs & Weight: Vital Signs (12 hours) Temp Pulse Resp BP BP BP BP 07/09/19 11:30 99.4 F 118 H 22 H 155/72 H 07/09/19 07:52 100.0 F H 124 H 20 168/101 H 144/75 H 177/83 H 07/09/19 07:16 118 H 16 07/09/19 03:45 99.2 F 115 H 18 166/83 H 07/09/19 01:42 130 H 18 131/64 07/09/19 00:40 116 H 14 Pulse Ox 07/09/19 11:30 94 L 07/09/19 07:52 95 07/09/19 07:16 07/09/19 03:45 96 07/09/19 01:42 98 07/09/19 00:40 94 L Weight Admit Weight 94 lb Weight 87 lb 11.2 oz I&O: 07/08/19 07/09/19 07/10/19 06:59 06:59 06:59 Intake Total 95 2407 Output Total 250 4075 Balance -155 -3098 Result Diagrams: 07/08/19 04:44 07/08/19 04:44 Additional Labs: Accuchecks 07/09/19 07/09/19 07/08/19 10:39 06:09 20:32 POC Glucose 134 H 111 H 119 H 07/08/19 07/08/19 16:42 12:20 POC Glucose 109 100 Hospitalist ROS - Medication Medications: Active Medications Generic Name Dose Route Start Last Admin Trade Name Freq PRN Reason Stop Dose Admin Acetaminophen 650 mg 07/08/19 02:20 07/08/19 19:56 Tylenol PO 650 mg Q4H PRN Administration Headache/Fever/Mild Pain (1-3) Acetaminophen/Codeine Phosphate 1 tab 07/08/19 02:20 07/09/19 11:56 Tylenol #3 PO 1 tab Q6H PRN Administration Moderate Pain (4-6) Albuterol/Ipratropium 3 ml 07/08/19 19:00 07/09/19 07:16 Duoneb NEB 3 ml [id number] HANNAH Administration Amlodipine Besylate 10 mg 07/08/19 09:00 07/09/19 09:59 Norvasc PO 10 mg DAILY HANNAH Administration Azithromycin 500 mg 07/09/19 09:00 07/09/19 09:59 Zithromax PO 500 mg DAILY HANNAH Administration Enoxaparin Sodium 40 mg 07/08/19 09:00 07/09/19 10:00 Lovenox SC 40 mg 0900 HANNAH Administration Hydralazine HCl 25 mg 07/08/19 19:41 07/09/19 00:01 Apresoline PO 25 mg TID PRN Administration SBP Greater Than 170 Metformin HCl 500 mg 07/08/19 08:00 07/09/19 09:59 Glucophage PO 500 mg BID-WM HANNAH Administration Ondansetron HCl 4 mg 07/08/19 02:20 07/09/19 11:58 Zofran IVP 4 mg Q6H PRN Administration Nausea/Vomiting Pantoprazole Sodium 40 mg 07/08/19 09:00 07/09/19 10:00 Protonix PO 40 mg BID HANNAH Administration Potassium Citrate 10 meq 07/08/19 08:00 07/09/19 09:59 Urocit K PO 10 meq BID-WM HANNAH Administration Pregabalin 150 mg 07/08/19 09:00 07/09/19 10:00 Lyrica PO 150 mg TID HANNAH Administration Ropinirole HCl 0.5 mg 07/08/19 21:00 07/08/19 20:04 Requip PO 0.5 mg HS HANNAH Administration Sodium Bicarbonate 650 mg 07/08/19 09:00 07/09/19 10:01 Bicarbonate, Sodium PO 650 mg BID HANNAH Administration Sodium Chloride 10 ml 07/08/19 09:00 07/09/19 10:01 Flush - Normal Saline IVF 10 ml Q12HR HANNAH Administration Tramadol HCl 50 mg 07/08/19 04:46 07/08/19 16:09 Ultram PO 50 mg BID PRN Administration Severe Pain (7-10) - Exam Eye: PERRL Heart: RRR (tachycardic), no murmur, no gallops, no rubs, normal peripheral pulses Respiratory: no wheezes, no ronchi, rales (+ rales at both base) Gastrointestinal: soft, non-tender, non-distended, normal bowel sounds, no palpable masses, no hepatomegaly, no splenomegaly Extremities: no cyanosis, no clubbing, no edema Hosp A/P (1) Acute bronchitis Code(s): J20.9 - ACUTE BRONCHITIS, UNSPECIFIED Status: Acute (2) Pre-syncope Status: Acute (3) Diabetes type 2, controlled Code(s): E11.9 - TYPE 2 DIABETES MELLITUS WITHOUT COMPLICATIONS Status: Chronic Qualifiers: Diabetes mellitus nursing home insulin use: with nursing home use Diabetes mellitus complication status: with hyperglycemia Qualified Code(s): E11.65 - Type 2 diabetes mellitus with hyperglycemia; Z79.4 - [facility] (current) use of insulin (4) HTN (hypertension) Code(s): I10 - ESSENTIAL (PRIMARY) HYPERTENSION Status: Chronic Qualifiers: Hypertension type: essential hypertension Qualified Code(s): I10 - Essential (primary) hypertension - Plan * Syncope- Presyncope- likely due to dehydration, and respiratory infection * I suspect she is developing pneumonia, and with her recent hospitalization this can be characterized as a Healthcare Associated pneumonia- will change her status to inpatient, and broaden her antibiotic coverage * Repeat CXR * DM- blood glucose is stable * HTN- blood pressure is elevated- will re-start Clonidine * Severe Deconditioning- PT/OT
[2019-07-09] MEDS ORDERED: Vancomycin HCl 1 GM in Premix Bag 1 BAG IVPB SCH (13:00)
[2019-07-09] MEDS: Sodium Chloride 0.9% 1,000 ML IV SCH (13:40)
--- NOTE | 2019-07-09 13:56 | RAD ---
Chest AP view INDICATION: Worsening congestion COMPARISON: July 07, 2019 FINDINGS: Lungs:There is mild subsegmental volume loss in the left lung base and right midlung. Cardiac silhouette:The cardiomediastinal silhouette appears within normal limits. Pulmonary vasculature:Normal Pleural spaces:No pleural effusion or pneumothorax is demonstrated. Upper abdomen:No abnormality seen. Osseous structures: No acute osseous abnormality. Additional findings:There is partial visualization of a biliary drain within the right upper quadrant of the abdomen IMPRESSION: Mild bilateral subsegmental atelectasis.
[2019-07-09] MEDS ORDERED: Vancomycin HCl 750 MG in Sodium Chloride 0.9% 250 ML 250 ML IVPB SCH (15:00)
[2019-07-09] MEDS: Saccharomyces boulardii 250 MG CAP PO SCH (15:48)
[2019-07-09] MEDS: Cefepime 2 GM in Sodium Chloride 0.9% 100 ML IVPB SCH (15:52)
[2019-07-09] MEDS: rOPINIRole HCl 0.5 MG TAB PO SCH (20:58)
[2019-07-09] MEDS: cloNIDine 0.2 MG TAB PO SCH ×2 (20:59→21:10)
[2019-07-10] MEDS: Cefepime 2 GM in Sodium Chloride 0.9% 100 ML IVPB SCH ×2 (02:35→15:02)
[2019-07-10] MEDS: metFORMIN 500 MG TAB PO SCH ×2 (08:25→17:02)
[2019-07-10] MEDS: Potassium Citrate 10 MEQ TAB PO SCH ×2 (08:26→17:02)
[2019-07-10] MEDS: Azithromycin 250 MG TAB PO SCH (08:26)
[2019-07-10] MEDS: Amlodipine 10 MG TAB PO SCH (08:26)
[2019-07-10] MEDS: cloNIDine 0.2 MG TAB PO SCH (08:27)
[2019-07-10] MEDS: Enoxaparin Sodium 40 MG/0.4 ML SYRINGE SC SCH (08:27)
[2019-07-10] MEDS: Saccharomyces boulardii 250 MG CAP PO SCH (08:28)
[2019-07-10] MEDS: Pregabalin 75 MG CAP PO SCH ×3 (08:28→20:56)
[2019-07-10] MEDS: Sodium Bicarbonate Tab 325 MG TAB PO SCH ×2 (08:29→20:57)
[2019-07-10] MEDS: Sodium Chloride 0.9% 1,000 ML IV SCH (08:33)
[2019-07-10 08:51] LABS: #Eosinphils 0.1 thou/uL (0.0-0.7); #Lymphocytes 2.4 thou/uL (1.20-3.40); #Monocytes 0.5 thou/uL (0.11-0.59); %Basophils 0.4 % (0.0-1.0); %Eosinophils 1.3 % (0.0-10.0); %Lymphocytes 39.7 % (21.0-51.0); %Monocytes 8.2 % (0.0-10.0); %Neutrophils 50.3 % (42.0-75.0); Hemoglobin 11.5 g/dL (12.0-16.0); Mean Corpuscular HGB CONC 32.6 g/dL (32.0-36.0); Mean Corpuscular Hemoglobin 28.4 pg (27.0-31.0); Mean Corpuscular Volume 87.2 fL (78.0-98.0); Mean Platelet Volume 8.1 fL (7.4-10.4); Platelet Count 477 thou/uL (130-400); RBC Distribution Width 13.1 % (11.5-14.5); Red Blood Cell (RBC) Count 4.04 mill/uL (4.20-5.40)
[2019-07-10 09:08] LABS: Anion Gap 14 mmol/L (10-20); BUN (Urea Nitrogen) 7 mg/dL (9.8-20.1); Calc. Creatinine Clearance 52 mL/min (70-130); Calcium 8.6 mg/dL (7.8-10.44); Carbon Dioxide 21 mmol/L (23-31); Chloride 110 mmol/L (98-107); Estimated GFR-MDRD 85; Glucose 121 mg/dL (80-115); Potassium 3.1 mmol/L (3.5-5.1); Sodium 142 mmol/L (136-145)
--- NOTE | 2019-07-10 12:03 | PDOC.HOSPP ---
- Subjective Encounter Date: 07/10/19 Encounter Time: 12:01 Subjective: Ms. Qureshi was seen today in follow-up of syncope and probable pneumonia. She says she is feeling a little better. She has less cough. - Objective Vital Signs & Weight: Vital Signs (12 hours) Temp Pulse Resp BP BP Pulse Ox 07/10/19 08:27 173/84 H 07/10/19 08:26 116 H 07/10/19 08:07 98.0 F 116 H 16 173/84 H 95 07/10/19 02:36 109 H 14 160/82 H 94 L 07/10/19 00:54 104 H 16 97 Weight Admit Weight 94 lb Weight 87 lb 11.2 oz I&O: 07/09/19 07/10/19 07/11/19 06:59 06:59 06:59 Intake Total 2407 1717 Output Total 4075 125 Balance -1668 1592 Result Diagrams: 07/10/19 08:34 07/10/19 08:34 Additional Labs: Accuchecks 07/10/19 07/10/19 07/09/19 11:00 06:18 21:08 POC Glucose 159 H 110 125 H 07/09/19 18:58 POC Glucose 149 H Hospitalist ROS - Medication Medications: Active Medications Generic Name Dose Route Start Last Admin Trade Name Freq PRN Reason Stop Dose Admin Acetaminophen 650 mg 07/08/19 02:20 07/08/19 19:56 Tylenol PO 650 mg Q4H PRN Administration Headache/Fever/Mild Pain (1-3) Acetaminophen/Codeine Phosphate 1 tab 07/08/19 02:20 07/09/19 19:51 Tylenol #3 PO 1 tab Q6H PRN Administration Moderate Pain (4-6) Albuterol/Ipratropium 3 ml 07/08/19 19:00 07/10/19 11:30 Duoneb NEB 3 ml [id number] HANNAH Administration Amlodipine Besylate 10 mg 07/08/19 09:00 07/10/19 08:26 Norvasc PO 10 mg DAILY HANNAH Administration Azithromycin 500 mg 07/09/19 09:00 07/10/19 08:26 Zithromax PO 500 mg DAILY HANNAH Administration Clonidine 0.2 mg 07/09/19 21:00 07/10/19 08:27 Catapres PO 0.2 mg BID HANNAH Administration Enoxaparin Sodium 40 mg 07/08/19 09:00 07/10/19 08:27 Lovenox SC 40 mg 0900 HANNAH Administration Hydralazine HCl 25 mg 07/08/19 19:41 07/09/19 00:01 Apresoline PO 25 mg TID PRN Administration SBP Greater Than 170 Cefepime HCl 2 gm/ Sodium 100 mls @ 200 mls/hr 07/09/19 14:00 07/10/19 02:35 Chloride IVPB 100 mls 0200,1400 HANNAH Administration Sodium Chloride 1,000 mls @ 60 mls/hr 07/09/19 12:30 07/10/19 08:33 Normal Saline 0.9% IV 1,000 mls .[id number] HANNAH Administration Metformin HCl 500 mg 07/08/19 08:00 07/10/19 08:25 Glucophage PO 500 mg BID-WM HANNAH Administration Ondansetron HCl 4 mg 07/08/19 02:20 07/09/19 18:15 Zofran IVP 4 mg Q6H PRN Administration Nausea/Vomiting Pantoprazole Sodium 40 mg 07/08/19 09:00 07/10/19 08:27 Protonix PO 40 mg BID HANNAH Administration Potassium Citrate 10 meq 07/08/19 08:00 07/10/19 08:26 Urocit K PO 10 meq BID-WM HANNAH Administration Pregabalin 150 mg 07/08/19 09:00 07/10/19 08:28 Lyrica PO 150 mg TID HANNAH Administration Ropinirole HCl 0.5 mg 07/08/19 21:00 07/09/19 20:58 Requip PO 0.5 mg HS HANNAH Administration Saccharomyces Boulardii 250 mg 07/09/19 13:00 07/10/19 08:28 Florastor PO 250 mg DAILY HANNAH Administration Sodium Bicarbonate 650 mg 07/08/19 09:00 07/10/19 08:29 Bicarbonate, Sodium PO 650 mg BID HANNAH Administration Sodium Chloride 10 ml 07/08/19 09:00 07/10/19 08:29 Flush - Normal Saline IVF 10 ml Q12HR HANNAH Administration Tramadol HCl 50 mg 07/08/19 04:46 07/08/19 16:09 Ultram PO 50 mg BID PRN Administration Severe Pain (7-10) - Exam Eye: PERRL Heart: RRR, no murmur, no gallops, no rubs, normal peripheral pulses Respiratory: no rales, rhonchi (+ scattered rhonchi bilaterally) Gastrointestinal: soft, non-tender, non-distended, normal bowel sounds, no palpable masses, no hepatomegaly Extremities: 1+ LE edema Hosp A/P (1) Acute bronchitis Code(s): J20.9 - ACUTE BRONCHITIS, UNSPECIFIED Status: Acute (2) Pre-syncope Status: Acute (3) Diabetes type 2, controlled Code(s): E11.9 - TYPE 2 DIABETES MELLITUS WITHOUT COMPLICATIONS Status: Chronic Qualifiers: Diabetes mellitus half-way insulin use: with half-way use Diabetes mellitus complication status: with hyperglycemia Qualified Code(s): E11.65 - Type 2 diabetes mellitus with hyperglycemia; Z79.4 - [facility] (current) use of insulin (4) HTN (hypertension) Code(s): I10 - ESSENTIAL (PRIMARY) HYPERTENSION Status: Chronic Qualifiers: Hypertension type: essential hypertension Qualified Code(s): I10 - Essential (primary) hypertension - Plan * Syncope- Presyncope- likely due to dehydration, and respiratory infection- there has been no arrhythmia of telemetry- will therefore discontinue it * Acute Bronchitis, and Probable pneumonia- will continue the current antibiotics, a day or two more * Mobilize * DM- blood glucose is stable * HTN- blood pressure is elevated- she is back on her home medications, will continue- her blood pressure is labile, and she has a tendency for orthostasis when she stands- will continue and PRN medications * Severe Deconditioning- PT/OT
[2019-07-10] MEDS ORDERED: Potassium Chloride 20 MEQ TAB PO SCH (12:15)
[2019-07-10] MEDS: Vancomycin HCl 500 MG in Sodium Chloride 0.9% 100 ML IVPB SCH (15:54)
[2019-07-10] MEDS: rOPINIRole HCl 0.5 MG TAB PO SCH (20:56)
[2019-07-10] MEDS: Acetaminophen/Codeine 30-300mg Tablet PO PRN (23:00)
[2019-07-11] MEDS: traMADol HCl 50 MG TAB PO PRN (02:07)
[2019-07-11] MEDS: Sodium Chloride 0.9% 1,000 ML IV SCH ×2 (02:08→15:13)
[2019-07-11] MEDS: Cefepime 2 GM in Sodium Chloride 0.9% 100 ML IVPB SCH ×2 (02:08→14:36)
[2019-07-11 05:07] LABS: #Eosinphils 0.1 thou/uL (0.0-0.7); #Lymphocytes 2.2 thou/uL (1.20-3.40); #Monocytes 0.6 thou/uL (0.11-0.59); #Neutrophils 7.9 thou/uL (1.40-6.50); %Basophils 0.2 % (0.0-1.0); %Eosinophils 0.8 % (0.0-10.0); %Lymphocytes 20.7 % (21.0-51.0); %Monocytes 5.3 % (0.0-10.0); Hemoglobin 9.7 g/dL (12.0-16.0); Mean Corpuscular HGB CONC 32.9 g/dL (32.0-36.0); Mean Corpuscular Hemoglobin 28.7 pg (27.0-31.0); Mean Corpuscular Volume 87.2 fL (78.0-98.0); Platelet Count 377 thou/uL (130-400); RBC Distribution Width 13.1 % (11.5-14.5); Red Blood Cell (RBC) Count 3.39 mill/uL (4.20-5.40); White Blood Cell (WBC) Count 10.8 thou/uL (4.8-10.8)
[2019-07-11 05:20] LABS: Anion Gap 11 mmol/L (10-20); BUN (Urea Nitrogen) 9 mg/dL (9.8-20.1); Calc. Creatinine Clearance 53 mL/min (70-130); Calcium 8.3 mg/dL (7.8-10.44); Carbon Dioxide 21 mmol/L (23-31); Chloride 113 mmol/L (98-107); Estimated GFR-MDRD 87; Glucose 98 mg/dL (80-115); Potassium 3.7 mmol/L (3.5-5.1); Sodium 141 mmol/L (136-145)
[2019-07-11] MEDS: metFORMIN 500 MG TAB PO SCH ×2 (08:46→16:48)
[2019-07-11] MEDS: Azithromycin 250 MG TAB PO SCH (08:46)
[2019-07-11] MEDS: Potassium Citrate 10 MEQ TAB PO SCH ×2 (08:46→16:48)
[2019-07-11] MEDS: Pregabalin 75 MG CAP PO SCH ×3 (08:47→21:04)
[2019-07-11] MEDS: Amlodipine 10 MG TAB PO SCH (08:47)
[2019-07-11] MEDS: Sodium Bicarbonate Tab 325 MG TAB PO SCH ×2 (08:47→21:05)
[2019-07-11] MEDS: Enoxaparin Sodium 40 MG/0.4 ML SYRINGE SC SCH (08:48)
[2019-07-11] MEDS: Saccharomyces boulardii 250 MG CAP PO SCH (08:48)
--- NOTE | 2019-07-11 13:15 | PDOC.HOSPP ---
- Subjective Encounter Date: 07/11/19 Encounter Time: 13:13 Subjective: Ms. Qureshi was seen today in follow-up of syncope and bronchitis/pneumonia. She is beginning to feel a bit better. She is sitting up in bed eating. She says the cough is less thick, and less frequent. - Objective Vital Signs & Weight: Vital Signs (12 hours) Temp Pulse Resp BP BP Pulse Ox 07/11/19 11:41 98.1 F 95 18 136/75 95 07/11/19 08:40 98.2 F 112 H 18 178/84 H 94 L 07/11/19 03:34 99.5 F 97 16 118/62 92 L Weight Admit Weight 94 lb Weight 87 lb 11.2 oz I&O: 07/10/19 07/11/19 07/12/19 06:59 06:59 06:59 Intake Total 1717 1904 Output Total 125 925 450 Balance 1592 979 -450 Result Diagrams: 07/11/19 04:43 07/11/19 04:41 Additional Labs: Accuchecks 07/11/19 07/11/19 07/10/19 11:01 05:57 20:16 POC Glucose 93 95 126 H 07/10/19 16:56 POC Glucose 101 Hospitalist ROS - Medication Medications: Active Medications Generic Name Dose Route Start Last Admin Trade Name Freq PRN Reason Stop Dose Admin Acetaminophen 650 mg 07/08/19 02:20 07/08/19 19:56 Tylenol PO 650 mg Q4H PRN Administration Headache/Fever/Mild Pain (1-3) Acetaminophen/Codeine Phosphate 1 tab 07/08/19 02:20 07/10/19 23:00 Tylenol #3 PO 1 tab Q6H PRN Administration Moderate Pain (4-6) Albuterol/Ipratropium 3 ml 07/08/19 19:00 07/11/19 07:38 Duoneb NEB 3 ml [id number] HANNAH Administration Amlodipine Besylate 10 mg 07/08/19 09:00 07/11/19 08:47 Norvasc PO 10 mg DAILY HANNAH Administration Azithromycin 500 mg 07/09/19 09:00 07/11/19 08:46 Zithromax PO 500 mg DAILY HANNAH Administration Enoxaparin Sodium 40 mg 07/08/19 09:00 07/11/19 08:48 Lovenox SC 40 mg 0900 HANNAH Administration Hydralazine HCl 25 mg 07/08/19 19:41 07/09/19 00:01 Apresoline PO 25 mg TID PRN Administration SBP Greater Than 170 Cefepime HCl 2 gm/ Sodium 100 mls @ 200 mls/hr 07/09/19 14:00 07/11/19 02:08 Chloride IVPB 100 mls 0200,1400 HANNAH Administration Sodium Chloride 1,000 mls @ 60 mls/hr 07/09/19 12:30 07/11/19 02:08 Normal Saline 0.9% IV 1,000 mls .[id number] HANNAH Administration Vancomycin HCl 500 mg/ Sodium 100 mls @ 100 mls/hr 07/10/19 15:00 07/10/19 15 :54 Chloride IVPB 100 mls 1500 HANNAH Administration Insulin Human Lispro 0 units 07/08/19 05:07 07/10/19 12:04 Humalog SC 2 unit .MILD SLIDING SCALE PRN Administration Mild Correctional Scale Metformin HCl 500 mg 07/08/19 08:00 07/11/19 08:46 Glucophage PO 500 mg BID-WM HANNAH Administration Ondansetron HCl 4 mg 07/08/19 02:20 07/09/19 18:15 Zofran IVP 4 mg Q6H PRN Administration Nausea/Vomiting Pantoprazole Sodium 40 mg 07/08/19 09:00 07/11/19 08:48 Protonix PO 40 mg BID HANNAH Administration Potassium Citrate 10 meq 07/08/19 08:00 07/11/19 08:46 Urocit K PO 10 meq BID-WM HANNAH Administration Pregabalin 150 mg 07/08/19 09:00 07/11/19 08:47 Lyrica PO 150 mg TID HANNAH Administration Ropinirole HCl 0.5 mg 07/08/19 21:00 07/10/19 20:56 Requip PO 0.5 mg HS HANNAH Administration Saccharomyces Boulardii 250 mg 07/09/19 13:00 07/11/19 08:48 Florastor PO 250 mg DAILY HANNAH Administration Sodium Bicarbonate 650 mg 07/08/19 09:00 07/11/19 08:47 Bicarbonate, Sodium PO 650 mg BID HANNAH Administration Sodium Chloride 10 ml 07/08/19 09:00 07/11/19 08:48 Flush - Normal Saline IVF 10 ml Q12HR HANNAH Administration Tramadol HCl 50 mg 07/08/19 04:46 07/11/19 02:07 Ultram PO 50 mg BID PRN Administration Severe Pain (7-10) - Exam Eye: PERRL Heart: RRR, no murmur, no gallops, no rubs, normal peripheral pulses Respiratory: CTAB (+ rhonchi bilaterally and occasional rales) Gastrointestinal: soft, non-tender, non-distended, normal bowel sounds, no palpable masses, no hepatomegaly, no splenomegaly Extremities: no cyanosis, no edema Hosp A/P (1) Acute bronchitis Code(s): J20.9 - ACUTE BRONCHITIS, UNSPECIFIED Status: Acute (2) Pre-syncope Status: Acute (3) Diabetes type 2, controlled Code(s): E11.9 - TYPE 2 DIABETES MELLITUS WITHOUT COMPLICATIONS Status: Chronic Qualifiers: Diabetes mellitus intermediate designer insulin use: with intermediate designer use Diabetes mellitus complication status: with hyperglycemia Qualified Code(s): E11.65 - Type 2 diabetes mellitus with hyperglycemia; Z79.4 - intermediate manager (current) use of insulin (4) HTN (hypertension) Code(s): I10 - ESSENTIAL (PRIMARY) HYPERTENSION Status: Chronic Qualifiers: Hypertension type: essential hypertension Qualified Code(s): I10 - Essential (primary) hypertension - Plan * Acute Bronchitis, and Probable pneumonia- improving- will transition to an oral antibiotic tomorrow * Continue PT * DM- blood glucose is stable * HTN- blood pressure has been labile- she had a few low readings- Clonidine has been discontinued once again * Anticipate discharge home tomorrow
[2019-07-11] MEDS: Acetaminophen/Codeine 30-300mg Tablet PO PRN (15:13)
[2019-07-11] MEDS: Vancomycin HCl 500 MG in Sodium Chloride 0.9% 100 ML IVPB SCH (15:13)
[2019-07-11] MEDS: rOPINIRole HCl 0.5 MG TAB PO SCH (21:05)
[2019-07-11] MEDS ORDERED: Temazepam 15 MG CAP PO PRN (22:35)
[2019-07-12] MEDS: Cefepime 2 GM in Sodium Chloride 0.9% 100 ML IVPB SCH (02:30)
[2019-07-12] MEDS ORDERED: Vancomycin HCl 500 MG in Sodium Chloride 0.9% 100 ML IVPB SCH (03:00)
[2019-07-12] MEDS: Enoxaparin Sodium 40 MG/0.4 ML SYRINGE SC SCH (09:00)
[2019-07-12] MEDS: Sodium Bicarbonate Tab 325 MG TAB PO SCH (09:00)
[2019-07-12] MEDS: metFORMIN 500 MG TAB PO SCH (09:00)
[2019-07-12] MEDS: Pregabalin 75 MG CAP PO SCH (09:00)
[2019-07-12] MEDS: Potassium Citrate 10 MEQ TAB PO SCH (09:00)
[2019-07-12] MEDS: Azithromycin 250 MG TAB PO SCH (09:00)
[2019-07-12] MEDS: Saccharomyces boulardii 250 MG CAP PO SCH (09:00)
[2019-07-12] MEDS: Amlodipine 10 MG TAB PO SCH (09:00)
[2019-07-12] MEDS: Ondansetron PF 4 MG/2 ML Vial IVP PRN (12:01)
[2019-07-12 20:24] VITALS: BP 158/87; TEMP 97.9
--- NOTE | 2019-07-14 04:12 | PQF ---
[employer] Crystal Reports ALVIN Jameson JARAD PISANO MD [id number] CLINICAL DOCUMENTATION CLARIFICATION FORM: POST DISCHARGE Addendum to original discharge summary date: ____ Late entry note date: __ DATE: 07/14/2019 ATTN:JARAD PISANO MD Please exercise your independent, professional judgment in responding to the clarification form. Clinical indicators are provided on the bottom of this form for your review Please check appropriate box(s): Syncope Due to: [ ] Dehydration [ ] Pneumonia [ ] Acute bronchitis [ X] Orthostatic hypotension [ ] Other diagnosis [ ] Unable to determine In addition, please specify: Present on Admission (POA): [ X] Yes [ ] No [ ] Unable to determine For continuity of documentation, please document condition throughout progress notes and discharge summary. Thank You. CLINICAL INDICATORS - SIGNS / SYMPTOMS / LABS Syncope cardiac vs orthostatic hypotension vs neurogenic - Documented in H&P on 07/08 by Jonas Clark MD patient was found to be very hypotensive in the field - Documented in H&P on by Jonas Clark MD Electrolyte imbalance we will replace her electrolytes - Documented in H&P on by Jonas Clark MD Syncope likely due to dehydration and respiratory infection - Documented in Hospital PNs on by Jarad Pisano MD RISK FACTORS HTN ALEXUS DM Pneumonia - Documented in Hospital PNs on 07/11 by Jarad Pisano MD TREATMENTS Vancomycin and Cefepime IVPB - Documented in Medication report She is on Clonidine with and Norvasc - Documented in H&P on 07/08 by Jonas Clark MD Continue monitor - Documented in H&P on 07/08 by Jonas Clark MD Will continue IV hydration Repeat Chest X ray - Documented in Hospital PNs on 07/09 by Jarad Pisano MD will transition to on oral antibiotics - Documented in Hospital PNs on by Jarad Pisano MD (This form is maintained as a part of the permanent medical record) 2014 [employer]. All Rights Reserved [email or web address] [not provided] MTDD
--- NOTE | 2019-07-14 06:50 | DIS ---
DATE OF ADMISSION: 07/08/2019 DATE OF DISCHARGE: 07/12/2019 PRIMARY CARE PHYSICIAN: Dr. Jesus. DISCHARGE DIAGNOSES: 1. Syncope. 2. Orthostatic hypotension. 3. Healthcare associated pneumonia. 4. Hypertension. 5. Diabetes mellitus, type 2. 6. Generalized weakness. DISCHARGE MEDICATIONS: Include: 1. Augmentin 875 mg twice daily for five days. 2. Florastor 250 mg daily. 3. Amlodipine 10 mg p.o. daily. 4. Tylenol 3 one tablet q.4 hours as needed for pain. 5. Tramadol 50 mg twice a day as needed. 6. Ropinirole 0.5 mg p.o. at bedtime. 7. Lyrica 150 mg t.i.d. 8. Pantoprazole 40 mg twice daily. 9. Metformin 500 mg p.o. twice a day. IMAGING DONE DURING THE ADMISSION: The patient had a CT scan of the brain in which there was no evidence of any acute intracranial abnormality. The patient had bilateral carotid Doppler, which was negative for any stenosis. The patient also had an echocardiogram in which the ejection fraction was estimated at 60% to 65% . There was grade 1/3 diastolic dysfunction and mild mitral regurgitation. CODE STATUS: Full code. ALLERGIES: TO CIPROFLOXACIN. HOSPITAL COURSE: Ms. Qureshi is a pleasant 63-year-old female, who has a history of diabetes as well as hypertension. She has also recently had surgery for acute cholecystitis and had surgery for gastrectomy for ulcer and is status post biliary catheter placement, who presented to the emergency room after suffering a syncopal episode at home. The full details of which are outlined in the history and physical. The syncope was attributed to orthostatic hypotension and clonidine was discontinued as one of her medications. It was also found that she had healthcare acquired pneumonia and was treated for this with broad-spectrum antibiotics. She improved over the course of the next couple of days and was subsequently able to be discharged home, and will need to have close outpatient followup in approximately 1 week. The patient was seen in a face to face exam today, the date of discharge. Job ID: [id number] [facility]
== END 2019-07-12 13:25 | disposition home or self-care (01) | DRG 312 ==
LOC: ERS 23:30 → 2SW 07-08 03:11 → OBSVTOIN 07-08 03:11 → 2NO 07-09 14:28
PROVIDERS: ADMIT Internal Medicine; ATTEND Internal Medicine
DX: I95.1 Orthostatic hypotension (principal); J18.9 Pneumonia, unspecified organism; N17.9 Acute kidney failure, unspecified; K86.1 Other chronic pancreatitis; E87.2 Acidosis; E86.0 Dehydration; J20.9 Acute bronchitis, unspecified; M81.0 Age-related osteoporosis without current pathological fracture; E11.65 Type 2 diabetes mellitus with hyperglycemia; Z87.11 Personal history of peptic ulcer disease; Z90.49 Acquired absence of other specified parts of digestive tract; Z79.4 Long term (current) use of insulin; E87.6 Hypokalemia; E83.42 Hypomagnesemia; E11.40 Type 2 diabetes mellitus with diabetic neuropathy, unspecified; I10 Essential (primary) hypertension; G25.81 Restless legs syndrome
CPT/HCPCS: 36415; 36416; 51701; 70450; 71045; 80048; 80053; 80202; 81003; 83690; 83735; 83880; 84484; 85025; 90471; 90732; 93005; 93306; 93880; 94640; 96361; 96365; A4353; G0009; J0692; J1650; J2405; J3370; J3475; J3490; J7050; J7620

== ENCOUNTER 2019-07-26 06:35 | Day surgery (SDC) | payer OTHER ==
[2019-07-25 15:30] VITALS: BMI 34.0
[2019-07-26 07:28] VITALS: BP 161/81; TEMP 97.5
[2019-07-26] MEDS ORDERED: Midazolam HCl 2 mg/2 ml Vial ONE (08:46)
[2019-07-26] MEDS ORDERED: Fentanyl 100 MCG/2 ML VIAL ONE (08:46)
[2019-07-26] MEDS ORDERED: Naloxone HCl 0.4 mg/ml Vial ONE (08:47)
[2019-07-26] MEDS ORDERED: cefTRIAXone\\ROCEPHIN 1 GM VIAL ONE (08:47)
[2019-07-26] MEDS ORDERED: Sodium Chloride 0.9% 100 ML ONE (08:48)
--- NOTE | 2019-07-26 12:19 | SPC ---
EXAM: Right biliary internal/external drainage catheter replacement and tube cholangiogram Balloon dilatation of biliary stricture PROVIDED CLINICAL HISTORY: Patient with stricture involving the distal common bile duct at the level of and just above the ampul la. Patient currently has indwelling right biliary drainage catheter in place. Dilatation to 6 mm diameter was performed at an outside institution previously. Repeat balloon dilatation of the biliary stricture was requested. COMPARISON: None TECHNIQUE: The procedure including the risks and complications were explained to the patient, and informed conse nt was obtained. 1 g of Rocephin was administered intravenously prior to the procedure. Conscious sedation was performed with intravenous administration of fentanyl and Versed. The patient was monito red for approximately 20 minutes during the procedure as well as immediately post procedure after intravenous administration of conscious sedation. The indwelling biliary drainage catheter was flushed and tube cholangiogram was performed. The cathet er was exchanged over a 0.035 inch [employer] guidewire for a 6 Mosotho vascular sheath. Cholangiogram was again performed. A 7 mm diameter angioplasty balloon was advanced across the focal severe strictu re involving the distal common duct. The angioplasty balloon achieved full profile with only minimal waist present within the angioplasty balloon initially. Patient did experience discomfort wit h inflation of the angioplasty balloon. The balloon was inflated for approximately 1 minute, and then balloon was deflated. The balloon was again inflated for an additional 1 minute time period. A c holangiogram was again performed demonstrating persistence of the narrowing. Bile ducts proximal to this region are dilated. A new 10 Mosotho internal/external biliary drainage catheter was placed, and a cholangiogram was perfo rmed. The most proximal sidehole was positioned in a peripheral right hepatic duct with the distal portion of the tube within the small bowel. The catheter was flushed and placed to gravity drainage. The catheter was sutured in place utilizing 2-0 Ethilon suture material. The patient tolerated the procedure well and without immediate complication. Patient was transported to radiology nurses holding for further monitoring prior to discharge. IMPRESSION: 1. 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 2. Technically successful balloon dilatation of the area of stricture with 7 mm diameter balloon. The patient will return in approximately one month for additional dilatation with larger caliber balloon. 3. Technically successful replacement of right 10 Mosotho internal/external biliary drainage catheter.
[2019-07-26] MEDS ORDERED: Sodium Chloride 0.9% 10 ML ONE (13:22)
== END 2019-07-26 14:50 | disposition home or self-care (01) ==
LOC: SPEC 06:35
PROVIDERS: ATTEND Surgery
DX: K91.89 Other postprocedural complications and disorders of digestive system (principal); I10 Essential (primary) hypertension; E11.9 Type 2 diabetes mellitus without complications; G25.81 Restless legs syndrome; M81.0 Age-related osteoporosis without current pathological fracture; Z88.1 Allergy status to other antibiotic agents
CPT/HCPCS: 47531; 47536; 75984; C1725; C1729; J0696; J2250; J2310; J3010; J3490

== ENCOUNTER 2019-07-28 07:40 | Emergency (ER) | payer OTHER ==
[2019-07-28 08:55] LABS: #Eosinphils 0.1 thou/uL (0.0-0.7); #Lymphocytes 1.8 thou/uL (1.20-3.40); #Monocytes 0.7 thou/uL (0.11-0.59); #Neutrophils 2.6 thou/uL (1.40-6.50); %Basophils 0.6 % (0.0-1.0); %Eosinophils 1.8 % (0.0-10.0); %Lymphocytes 34.7 % (21.0-51.0); %Monocytes 13.2 % (0.0-10.0); %Neutrophils 49.7 % (42.0-75.0); Hemoglobin 11.1 g/dL (12.0-16.0); Mean Corpuscular HGB CONC 33.9 g/dL (32.0-36.0); Mean Corpuscular Hemoglobin 28.9 pg (27.0-31.0); Mean Corpuscular Volume 85.4 fL (78.0-98.0); Mean Platelet Volume 8.7 fL (7.4-10.4); Platelet Count 358 thou/uL (130-400); RBC Distribution Width 13.6 % (11.5-14.5); Red Blood Cell (RBC) Count 3.83 mill/uL (4.20-5.40); White Blood Cell (WBC) Count 5.2 thou/uL (4.8-10.8)
[2019-07-28 09:24] LABS: Anion Gap 16 mmol/L (10-20); BUN (Urea Nitrogen) 20 mg/dL (9.8-20.1); Calc. Creatinine Clearance 0 mL/min (70-130); Calcium 8.8 mg/dL (7.8-10.44); Carbon Dioxide 12 mmol/L (23-31); Chloride 114 mmol/L (98-107); Estimated GFR-MDRD 90; Glucose 93 mg/dL (80-115); Potassium 4.1 mmol/L (3.5-5.1); Sodium 138 mmol/L (136-145)
[2019-07-28 09:25] LABS: ALT (SGPT) 15 U/L (8-55); AST (SGOT) 22 U/L (5-34); Albumin 3.5 g/dL (3.4-4.8); Alkaline Phosphatase 99 U/L (40-110); Bilirubin, Total 0.4 mg/dL (0.2-1.2); Globulin 3.9 g/dL (2.4-3.5); Protein, Total 7.4 g/dL (5.8-8.1)
== END 2019-07-28 10:51 | disposition home or self-care (01) ==
LOC: ERS 07:40
DX: T85.590A Other mechanical complication of bile duct prosthesis, initial encounter (principal); M19.90 Unspecified osteoarthritis, unspecified site; J45.909 Unspecified asthma, uncomplicated; E11.40 Type 2 diabetes mellitus with diabetic neuropathy, unspecified; I10 Essential (primary) hypertension; Z79.899 Other long term (current) drug therapy; Z79.84 Long term (current) use of oral hypoglycemic drugs
CPT/HCPCS: 36415; 80053; 85025; 99283

== ENCOUNTER 2019-08-25 06:55 | Day surgery (SDC) | payer OTHER ==
[2019-08-24 12:41] VITALS: BMI 19.5
[~2019-08-25 06:55] MED LIST changes: +FLU VACC QS2019-20(6MOS UP)/PF 60 MCG/0.5 ML SYRINGE IM ONE; -Iopamidol 370 76% 50 ML VIAL FS ONE
[2019-08-25 07:30] LABS: Prothrombin Time 13.5 SEC (12.0-14.7)
[2019-08-25] MEDS ORDERED: cefTRIAXone\\ROCEPHIN 1 GM in Sodium Chloride 0.9% 100 ML IVPB SCH (07:45)
[2019-08-25] MEDS ORDERED: Midazolam HCl 2 mg/2 ml Vial ONE (08:19)
[2019-08-25] MEDS ORDERED: Fentanyl 100 MCG/2 ML VIAL ONE (08:19)
[2019-08-25 08:28] VITALS: BP 118/64; TEMP 97.6
[2019-08-25] MEDS ORDERED: Iopamidol 300 61% 50 ML VIAL FS ONE (10:37)
--- NOTE | 2019-08-25 13:21 | SPC ---
EXAM: [facility] BILIARY DRAINAGE CA PROVIDED CLINICAL HISTORY: Stricture involving the distal common duct at the level of the ampulla. Internal/external right bilia ry drainage catheter is in place. Continued serial dilatation of the stricture is requested. COMPARISON: 07/26/2019 TECHNIQUE: The procedure including the risks and complications were explained to the patient, and informed conse nt was obtained. 1 g of Rocephin was administered intravenously prior to the procedure. Conscious sedation was again performed with intravenous administration of fentanyl and Versed. Patient was evan tored for approximately 30 minutes during the procedure and immediately postprocedure after administration of conscious sedation. The indwelling biliary drainage catheter and surrounding area were meticulously prepped and draped in the usual sterile fashion. The biliary drainage catheter was exchanged over a 0.035 inch [employer] guidewire for a 6 Moldovan vascular sheath. A cholangiogram was performed again demonstrating severe st enosis at the distal common duct near the ampulla without significant amount of contrast extending into the small bowel; however, a small amount contrast does extend into the small bowel. A 6 Moldovan (8 mm diameter) angioplasty balloon was placed over the guidewire, and balloon dilatation was performed. A small waist was present within the balloon, the balloon did achieve full profile. The balloon remained in full profile for 1 minute. Balloon dilatation was again repeated for a total time of 1 minute. Cholangiogram was again performed. Small amount of contrast extends into the small bowel. A 10 Moldovan internal/external biliary drainage catheter was replaced, and the guidewire was removed. Cholangiogram was performed. Distal portion of the catheter was positioned in the small bowel. The catheter was flushed and placed to gravity drainage. Catheter was sutured in place utilizing 2-0 Ethi kennedi suture material. A dry sterile dressing was placed. The patient tolerated the procedure well and without immediate complication. Patient was transported to radiology nurses holding area for further monitoring. Patient remained afebrile with stable vital signs postprocedure. IMPRESSION: 1. 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 2. Technically successful balloon dilatation of the area of stricture with a 6 Moldovan (8 mm diameter) balloon. The patient will return in approximately 4 weeks for repeat dilatation. 3. Technically successful placement of right 10 Moldovan internal/external biliary drainage catheter.
== END 2019-08-25 11:05 | disposition home or self-care (01) ==
LOC: SPEC 06:55
PROVIDERS: ATTEND Surgery
PROC: 0F2BX0Z Change Drainage Device in Hepatobiliary Duct, External Approach (ICD-10-PCS; principal; 2019-08-25)
PROC: 0F793ZZ Dilation of Common Bile Duct, Percutaneous Approach (ICD-10-PCS; principal; 2019-08-25)
DX: K83.1 Obstruction of bile duct (principal); I10 Essential (primary) hypertension; E11.42 Type 2 diabetes mellitus with diabetic polyneuropathy; J45.909 Unspecified asthma, uncomplicated; M19.90 Unspecified osteoarthritis, unspecified site; M81.0 Age-related osteoporosis without current pathological fracture; Z79.84 Long term (current) use of oral hypoglycemic drugs; Z79.899 Other long term (current) drug therapy; Z88.1 Allergy status to other antibiotic agents; Z90.49 Acquired absence of other specified parts of digestive tract
CPT/HCPCS: 47531; 75984; 85610; 85730; C1725; C1729; J0696; J2250; J3010; J3490; Q9967

== ENCOUNTER 2019-09-21 07:47 | Day surgery (SDC) | payer OTHER ==
[2019-09-20 08:58] VITALS: BMI 21.7
[2019-09-21] MEDS ORDERED: cefTRIAXone\\ROCEPHIN 1 GM in Sodium Chloride 0.9% 100 ML IVPB SCH (09:30)
[2019-09-21] MEDS ORDERED: Midazolam HCl 2 mg/2 ml Vial ONE (09:49)
[2019-09-21] MEDS ORDERED: Fentanyl 100 MCG/2 ML VIAL ONE (09:49)
[2019-09-21 11:02] VITALS: BP 169/83; TEMP 97.7
[2019-09-21] MEDS ORDERED: Iopamidol 300 61% 50 ML VIAL FS ONE (16:44)
--- NOTE | 2019-09-22 15:11 | SPC ---
EXAM: Biliary tube cholangiogram Balloon dilatation ampullary stricture Internal/external biliary drainage catheter replacement PROVIDED CLINICAL HISTORY: Stricture involving the distal common duct at the level of the ampulla. Internal/external biliary elke inage catheter is present. Continued serial dilatations of the stricture is requested. COMPARISON: 08/25/2019 TECHNIQUE: The procedure including the risks and complications were explained to the patient, and informed conse nt was obtained. 1 g of Rocephin was administered intravenously prior to the procedure. Conscious sedation was performed with intravenous administration of fentanyl and Versed. Patient was monitored for approximately 30 minutes during the procedure as well as immediately post procedure. The indwelling biliary drainage catheter and surrounding area were meticulously prepped and draped in usual sterile fashion. The biliary drainage catheter was cut and exchanged over a 0.035 inch [employer] guidewire for a 6 Cambodian vascular sheath. A cholangiogram was performed demonstrating severe stenosis in the distal common duct near the ampulla without significant contrast seen extending into the small bowel. An 8 mm x 40 mm angioplasty balloon was placed over the guidewire, and balloon dilatation was perform ed. A waist was again present within the balloon, but the balloon was able to achieve full profile. 2 separate balloon dilatations were performed with the balloon achieving full profile each time. The balloon remained in full profile for approximately 1 minute each time. After bolus dilatation, contrasted extend into the small bowel. However the stricture did persist. A 10 Cambodian internal/exter nal biliary drainage catheter was replaced with a most proximal sidehole positioned at the confluence of the right and left hepatic ducts. Cholangiogram was performed. Catheter was flushed and placed to gravity drainage. Catheter was sutured in place utilizing 2-0 Ethilon suture material. A dry sterile dressing was placed. The patient tolerated the procedure well and without immediate complication. Patient was transported to radiology nurses holding area for further monitoring prior to discharge. Patient remained afebrile with stable vital signs postprocedure. IMPRESSION: 1. 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 2. Technically successful balloon dilatation of the area of stricture with 8 mm diameter angioplasty balloon. The stricture persists. Patient will return in approximately 3-4 weeks for repeat dilatation. 3. Technically successful replacement of right 10 Cambodian internal/external biliary drainage catheter. Transcribed Date/Time: 09/22/2019 3:10 PM
== END 2019-09-21 11:55 | disposition home or self-care (01) ==
LOC: SPEC 07:47
PROVIDERS: ATTEND Surgery
PROC: 0F793ZZ Dilation of Common Bile Duct, Percutaneous Approach (ICD-10-PCS; principal; 2019-09-21)
PROC: 0FH Hepatobiliary System and Pancreas, Insertion (ICD-10-PCS; principal; 2019-09-21)
PROC: 0FPB30Z Removal of Drainage Device from Hepatobiliary Duct, Percutaneous Approach (ICD-10-PCS; principal; 2019-09-21)
DX: K83.1 Obstruction of bile duct (principal); I10 Essential (primary) hypertension; E11.42 Type 2 diabetes mellitus with diabetic polyneuropathy; J45.909 Unspecified asthma, uncomplicated; K21.9 Gastro-esophageal reflux disease without esophagitis; M19.90 Unspecified osteoarthritis, unspecified site; G25.81 Restless legs syndrome; Z79.84 Long term (current) use of oral hypoglycemic drugs; Z79.899 Other long term (current) drug therapy; Z88.1 Allergy status to other antibiotic agents
CPT/HCPCS: 47531; 47536; 75984; C1725; C1729; J0696; J2250; J3010; J3490; Q9967

== ENCOUNTER 2019-10-30 07:34 | Day surgery (SDC) | payer OTHER ==
[2019-10-30] MEDS ORDERED: cefTRIAXone\\ROCEPHIN 1 GM in Sodium Chloride 0.9% 100 ML IVPB SCH (08:00)
[2019-10-30] MEDS ORDERED: Ondansetron PF 4 MG/2 ML Vial ONE (08:17)
[2019-10-30] MEDS ORDERED: Midazolam HCl 2 mg/2 ml Vial ONE (08:17)
[2019-10-30] MEDS ORDERED: Fentanyl 100 MCG/2 ML VIAL ONE (08:17)
[2019-10-30 09:56] VITALS: BP 136/78; TEMP 98.3
[2019-10-30 09:59] VITALS: BMI 20.2
--- NOTE | 2019-10-30 10:00 | SPC ---
PROCEDURE: Biliary tube cholangiogram Balloon dilatation ampullary stricture Internal/external biliary drainage catheter replacement PROVIDED CLINICAL HISTORY: Stricture involving the distal common bile duct at the level of the ampulla. Internal/external biliar y drainage catheter is in place. Continued serial dilatations of the stricture is requested. COMPARISON: 09/21/2019 TECHNIQUE: The procedure including the risks and complications were explained to the patient, and informed conse nt was obtained. 1 g of Rocephin was administered intravenously prior to the procedure. Conscious sedation was performed with intravenous administration of fentanyl and Versed. Patient was monitored for approximately 30 minutes during the procedure as well as immediately postprocedure. The indwelling right-sided biliary drainage catheter and surrounding area were meticulously prepped a nd draped in usual sterile fashion. The biliary drainage catheter was cut and exchanged over a 0.035 inch [employer] guidewire for a 6 Luxembour[place] vascular sheath. A cholangiogram was performed again demo nstrating severe stenosis in the distal common duct near the ampulla without significant contrast extending into the small bowel. This is similar to prior exam. An 8 mm x 4 cm angioplasty balloon was placed over the guidewire, and balloon dilatation was performe d. A waist was again seen within the balloon, but the balloon does achieve full profile. This was repeated for a total of 2 times. The balloon remained in full profile for approximately 1 minute each time. After balloon dilatation, there is no significant improvement in degree of stricture. A 10 [place] internal/external biliary drainage catheter was replaced with most proximal sidehole posi tioned at the confluence of the right and left hepatic ducts. A cholangiogram was performed demonstrating contrast within bile ducts as well as loop of small bowel. The catheter was flushed and placed to gravity drainage. The catheter was secured in place utilizing 2-0 Ethilon suture material and placed to gravity drainage. A dry sterile dressing was placed. The patient tolerated the procedure well without immediate complication. Patient was transported to [facility] holding area for further monitoring prior to discharge. IMPRESSION: 1. 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 2. Technically successful balloon dilatation of the area of stricture with 8 mm diameter angioplasty balloon. However, the severe stricture persists without significant improvement. Repeat balloon dilatation in 3-4 weeks will be performed. 3. Technically successful placement of right 10 Luxembour[place] internal/external biliary drainage catheter.
[2019-10-30] MEDS ORDERED: Iopamidol 300 61% 50 ML VIAL FS ONE (14:47)
== END 2019-10-30 10:35 | disposition home or self-care (01) ==
LOC: SPEC 07:34
PROVIDERS: ATTEND Surgery
PROC: 0F793ZZ Dilation of Common Bile Duct, Percutaneous Approach (ICD-10-PCS; principal; 2019-10-30)
PROC: 0F2BX0Z Change Drainage Device in Hepatobiliary Duct, External Approach (ICD-10-PCS; principal; 2019-10-30)
DX: K83.1 Obstruction of bile duct (principal); I10 Essential (primary) hypertension; E11.42 Type 2 diabetes mellitus with diabetic polyneuropathy; J45.909 Unspecified asthma, uncomplicated; M19.90 Unspecified osteoarthritis, unspecified site; M81.0 Age-related osteoporosis without current pathological fracture; K21.9 Gastro-esophageal reflux disease without esophagitis; Z79.84 Long term (current) use of oral hypoglycemic drugs; Z79.899 Other long term (current) drug therapy; Z88.1 Allergy status to other antibiotic agents; Z90.49 Acquired absence of other specified parts of digestive tract
CPT/HCPCS: 47536; 47555; C1725; J0696; J2250; J2405; J3010; J3490; Q9967

== ENCOUNTER 2019-12-08 07:09 | Day surgery (SDC) | payer OTHER ==
[2019-12-07 14:52] VITALS: BMI 19.3
[2019-12-08] MEDS ORDERED: cefTRIAXone\\ROCEPHIN 1 GM in Sodium Chloride 0.9% 100 ML IVPB SCH (07:15)
[2019-12-08] MEDS ORDERED: Ondansetron PF 4 MG/2 ML Vial ONE (07:54)
[2019-12-08] MEDS ORDERED: Fentanyl 100 MCG/2 ML VIAL ONE (07:54)
[2019-12-08] MEDS ORDERED: Midazolam HCl 2 mg/2 ml Vial ONE (07:55)
[2019-12-08 10:00] VITALS: BP 128/72; TEMP 98.3
[2019-12-08] MEDS ORDERED: Iopamidol 300 61% 50 ML VIAL FS ONE (10:05)
--- NOTE | 2019-12-08 10:27 | SPC ---
PROCEDURE: Biliary tube cholangiogram Balloon dilatation ampullary stricture Internal/external biliary drainage catheter replacement and upsizing PROVIDED CLINICAL HISTORY: Stricture involving the distal common duct near the level of the ampulla. Internal/external biliary d rainage catheter is in place. Serial dilatation is being performed of the stricture. COMPARISON: 10/30/2019 TECHNIQUE: The procedure including the risks and consultations were explained to the patient, and informed conse nt was obtained. 1 g of Rocephin was administered intravenously prior to the procedure. Conscious sedation was performed with intravenous administration of fentanyl and Versed. Patient was monitored for approximately 30 minutes during the procedure as well as immediately postprocedure. The indwelling right-sided biliary drainage catheter and surrounding area were meticulously prepped a nd draped in usual sterile fashion. The biliary drainage catheter was cut and exchanged over a 0.035 inch [employer] guidewire for a 6 Citizen [place] vascular sheath. A cholangiogram was performed again demo nstrating severe narrowing in the region of the distal common duct at the level of the ampulla. Contrast did not extend into the small bowel. An 8 mm x 4 cm angioplasty balloon was placed over the guidewire, and balloon dilatation was performe d. A waist was again present within the balloon, the balloon did achieve full profile. The dilatation was performed twice with volume remaining in full profile for 1 minute upon each dilatatio n. After balloon dilatation, small amount of contrast did extend into the small bowel, but severe narrowing persists. The 6 [place] sheath was exchanged for a 12 [place] tissue dilator followed by placement of a 12 [place] internal/external biliary drainage catheter. The distal portion of the catheter was placed into the small bowel but the most proximal sidehole positioned in a peripheral right hepatic duct. Contras t injection confirms placement. The biliary tube was flushed and then placed to gravity drainage. The catheter was sutured in place u tilizing 2-0 Ethilon suture material, and a dry sterile dressing was placed. The patient tolerated the procedure well and without immediate complication. Patient transported to [facility] nurses holding area for further monitoring prior to discharge. IMPRESSION: 1. 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 2. Technically successful balloon dilatation of the area of stricture to 8 mm in diameter. No signifi cant improvement in degree of narrowing is present post balloon dilatation. 3. Technically successful replacement of an internal/external biliary drainage catheter with upsizing of the biliary drainage catheter from 10 [place] to 12 [place]. 4. Repeat examination will be performed in 2 months for additional balloon dilatation and biliary tub e replacement.
--- NOTE | 2019-12-11 15:06 | SPC ---
"PRELIMINARY REPORT" PROCEDURE: Biliary tube cholangiogram Balloon dilatation ampullary stricture Internal/external biliary drainage catheter replacement and upsizing PROVIDED CLINICAL HISTORY: Stricture involving the distal common duct near the level of the ampulla. Internal/external biliary d rainage catheter is in place. Serial dilatation is being performed of the stricture. COMPARISON: 10/30/2019 TECHNIQUE: The procedure including the risks and consultations were explained to the patient, and informed conse nt was obtained. 1 g of Rocephin was administered intravenously prior to the procedure. Conscious sedation was performed with intravenous administration of fentanyl and Versed. Patient was monitored for approximately 30 minutes during the procedure as well as immediately postprocedure. The indwelling right-sided biliary drainage catheter and surrounding area were meticulously prepped a nd draped in usual sterile fashion. The biliary drainage catheter was cut and exchanged over a 0.035 inch [employer] guidewire for a 6 Panamanian vascular sheath. A cholangiogram was performed again demo nstrating severe narrowing in the region of the distal common duct at the level of the ampulla. Contrast did not extend into the small bowel. An 8 mm x 4 cm angioplasty balloon was placed over the guidewire, and balloon dilatation was performe d. A waist was again present within the balloon, the balloon did achieve full profile. The dilatation was performed twice with volume remaining in full profile for 1 minute upon each dilatatio n. After balloon dilatation, small amount of contrast did extend into the small bowel, but severe narrowing persists. The 6 Panamanian sheath was exchanged for a 12 Panamanian tissue dilator followed by placement of a 12 Panamanian internal/external biliary drainage catheter. The distal portion of the catheter was placed into the small bowel but the most proximal sidehole positioned in a peripheral right hepatic duct. Contras t injection confirms placement. The biliary tube was flushed and then placed to gravity drainage. The catheter was sutured in place u tilizing 2-0 Ethilon suture material, and a dry sterile dressing was placed. The patient tolerated the procedure well and without immediate complication. Patient transported to [facility] nurses holding area for further monitoring prior to discharge. IMPRESSION: 1. 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 2. Technically successful balloon dilatation of the area of stricture to 8 mm in diameter. No signifi cant improvement in degree of narrowing is present post balloon dilatation. 3. Technically successful replacement of an internal/external biliary drainage catheter with upsizing of the biliary drainage catheter from 10 Panamanian to 12 Panamanian. 4. Repeat examination will be performed in 2 months for additional balloon dilatation and biliary tub e replacement. Transcribed Date/Time: 12/11/2019 3:06 PM
== END 2019-12-08 11:55 | disposition home or self-care (01) ==
LOC: SPEC 07:09
PROVIDERS: ATTEND Surgery
PROC: 0F7 Hepatobiliary System and Pancreas, Dilation (ICD-10-PCS; principal; 2019-12-08)
PROC: 0F9930Z Drainage of Common Bile Duct with Drainage Device, Percutaneous Approach (ICD-10-PCS; principal; 2019-12-08)
PROC: 0FPB30Z Removal of Drainage Device from Hepatobiliary Duct, Percutaneous Approach (ICD-10-PCS; principal; 2019-12-08)
DX: K83.1 Obstruction of bile duct (principal); Z79.84 Long term (current) use of oral hypoglycemic drugs; Z79.899 Other long term (current) drug therapy; Z88.1 Allergy status to other antibiotic agents
CPT/HCPCS: 47531; 47536; 75984; C1725; C1729; J0696; J2250; J2405; J3010; J3490

== ENCOUNTER 2019-12-29 07:00 | Day surgery (SDC) | payer OTHER ==
[2019-12-29 13:31] VITALS: BP 115/60; TEMP 97.8
== END 2019-12-29 07:15 | disposition home or self-care (01) ==
LOC: SPEC 07:00
PROVIDERS: ATTEND Surgery
DX: K83.1 Obstruction of bile duct (principal); Z79.84 Long term (current) use of oral hypoglycemic drugs; Z79.899 Other long term (current) drug therapy; Z88.1 Allergy status to other antibiotic agents

== ENCOUNTER 2020-01-28 15:50 | Emergency (ER) | payer OTHER ==
[~2020-01-28 15:50] MED LIST changes: -FLU VACC QS2019-20(6MOS UP)/PF 60 MCG/0.5 ML SYRINGE IM ONE; +Iopamidol-370 76% 500 ML 1 ML ONE
[2020-01-28] MEDS ORDERED: Rocuronium Bromide 10 MG/ML (10ML VIAL) ONE (15:55)
[2020-01-28] MEDS ORDERED: Magnesium 2 GM/50 ML BAG (IN WATER) ONE (16:14)
[2020-01-28] MEDS ORDERED: Dexamethasone 10 MG/ML VIAL ONE (16:14)
--- NOTE | 2020-01-28 16:46 | RAD ---
PORTABLE CHEST: Date: 01-28-2020 Provided Clinical History: None FINDINGS: Comparison: 07-09-2019 Cardiac and mediastinal silhouette is within normal limits. No focal consolidation, pleural fluid, or pneumothorax apparent. Percutaneous drainage catheter is partially visualized overlying the right up per abdomen. IMPRESSION: No evidence for an acute cardiopulmonary process. POS: LEONID
[2020-01-28 17:27] LABS: #Lymphocytes 1.9 thou/uL (1.20-3.40); #Monocytes 0.5 thou/uL (0.11-0.59); #Neutrophils 3.2 thou/uL (1.40-6.50); %Basophils 0.3 % (0.0-1.0); %Eosinophils 0.2 % (0.0-10.0); %Lymphocytes 33.7 % (21.0-51.0); %Monocytes 9.2 % (0.0-10.0); %Neutrophils 56.6 % (42.0-75.0); Hemoglobin 11.4 g/dL (12.0-16.0); Mean Corpuscular HGB CONC 33.5 g/dL (32.0-36.0); Mean Corpuscular Hemoglobin 29.8 pg (27.0-31.0); Mean Corpuscular Volume 88.9 fL (78.0-98.0); Mean Platelet Volume 8.1 fL (7.4-10.4); Platelet Count 311 thou/uL (130-400); RBC Distribution Width 13.2 % (11.5-14.5); Red Blood Cell (RBC) Count 3.81 mill/uL (4.20-5.40); White Blood Cell (WBC) Count 5.6 thou/uL (4.8-10.8)
[2020-01-28] MEDS ORDERED: Ondansetron PF 4 MG/2 ML Vial ONE (17:36)
[2020-01-28 17:55] LABS: ALT (SGPT) 19 U/L (8-55); AST (SGOT) 30 U/L (5-34); Alkaline Phosphatase 89 U/L (40-110); Anion Gap 15 mmol/L (10-20); BUN (Urea Nitrogen) 19 mg/dL (9.8-20.1); Bilirubin, Total 0.3 mg/dL (0.2-1.2); CK (CPK) 29 U/L (29-168); Calc. Creatinine Clearance 0 mL/min (70-130); Calcium 8.3 mg/dL (7.8-10.44); Carbon Dioxide 16 mmol/L (23-31); Chloride 111 mmol/L (98-107); Estimated GFR-MDRD 75; Glucose 142 mg/dL (80-115); Lipase 35 U/L (8-78); Potassium 3.3 mmol/L (3.5-5.1); Sodium 139 mmol/L (136-145)
--- NOTE | 2020-01-28 19:50 | CT ---
CTA OF THE CHEST: Comparison: 01-17-19 History: Elevated D-Dimer. Patient's tested positive for Covid-19. Shortness of breath. Technique: Multiple contiguous axial images were obtained in a CTA of the chest with contrast per pul monary embolism protocol. 3D MIP reformats and direct coronal reformats were performed. FINDINGS: The pulmonary arteries are well opacified without filling defects to suggest pulmonary emboli. The he art is normal in size without focal cardiac abnormality. No hilar or mediastinal lymphadenopathy are seen. Atelectasis is seen in both lung bases. In the left lower lobe, there are very subtle peripheral area s of ground glass attenuation. When compared to the prior examination, this has improved. However, an early infiltrate cannot be entirely excluded. No other infiltrates or seen in the lungs. No pleural effusion or pneumothorax are seen. Degenerative changes are seen in the spine. The patient has a drain in the portahepatis of the liver. The other visualized subdiaphragmatic structures and the chest wall soft tissues are unremarkable. IMPRESSION: 1. No intrapulmonary thromboembolism. 2. Likely atelectasis in the left lung base. A very early infiltrative cannot be entirely excluded. POS: EAA
--- NOTE | 2020-02-04 12:30 | EKG ---
Test Reason : Blood Pressure : / mmHG Vent. Rate : 107 BPM Atrial Rate : 107 BPM P-R Int : 132 ms QRS Dur : 072 ms QT Int : 328 ms P-R-T Axes : 032 -05 052 degrees QTc Int : 437 ms Sinus tachycardia Otherwise normal ECG Confirmed by RUFUS ZIEGLER, QIANA ([id number]), film editor supervisor ABI DANIEL ([id number]) on 02/04/2020 12:29:51 PM Referred By: Confirmed By:QIANA HOOPER MD
== END 2020-01-28 19:41 | disposition home or self-care (01) ==
LOC: ERS 15:50
DX: U07.1 COVID-19 (principal); E86.0 Dehydration; M19.90 Unspecified osteoarthritis, unspecified site; I10 Essential (primary) hypertension; M81.0 Age-related osteoporosis without current pathological fracture; J45.909 Unspecified asthma, uncomplicated; E11.40 Type 2 diabetes mellitus with diabetic neuropathy, unspecified; Z79.899 Other long term (current) drug therapy; Z79.84 Long term (current) use of oral hypoglycemic drugs
CPT/HCPCS: 71045; 71275; 80053; 82550; 83690; 83880; 84484; 85025; 85379; 93005; 96361; 96365; 96374; 96375; J1100; J2405; J3475; Q9967

== ENCOUNTER 2020-01-30 13:30 | Inpatient (IN) | payer OTHER ==
[2020-01-30 14:11] LABS: #Lymphocytes 2.2 thou/uL (1.20-3.40); #Monocytes 0.5 thou/uL (0.11-0.59); #Neutrophils 4.1 thou/uL (1.40-6.50); %Basophils 0.5 % (0.0-1.0); %Eosinophils 0.1 % (0.0-10.0); %Lymphocytes 32.3 % (21.0-51.0); %Monocytes 6.5 % (0.0-10.0); %Neutrophils 60.5 % (42.0-75.0); Hemoglobin 11.6 g/dL (12.0-16.0); Mean Corpuscular Hemoglobin 29.8 pg (27.0-31.0); Mean Corpuscular Volume 87.7 fL (78.0-98.0); Mean Platelet Volume 8.2 fL (7.4-10.4); Platelet Count 386 thou/uL (130-400); RBC Distribution Width 13.2 % (11.5-14.5); Red Blood Cell (RBC) Count 3.89 mill/uL (4.20-5.40); White Blood Cell (WBC) Count 6.8 thou/uL (4.8-10.8)
[2020-01-30] MEDS ORDERED: Aspirin 325 MG TAB ONE (14:28)
--- NOTE | 2020-01-30 14:32 | RAD ---
PORTABLE CHEST ONE VIEW: 01/30/20 at 1:39 p.m. HISTORY: Chest pain. COVID positive. COMPARISON: 01/28/20. FINDINGS: The heart size is normal. The aorta is tortuous. The lungs are expanded without focal areas of consol idation, pneumothoraces or pleural effusions. Percutaneous drainage catheter in the right upper abdom en is again seen. IMPRESSION: No acute process. POS: SJDI
[2020-01-30 14:33] LABS: ALT (SGPT) 16 U/L (8-55); AST (SGOT) 21 U/L (5-34); Albumin 4.1 g/dL (3.4-4.8); Alkaline Phosphatase 82 U/L (40-110); Anion Gap 14 mmol/L (10-20); BUN (Urea Nitrogen) 17 mg/dL (9.8-20.1); Bilirubin, Total 0.3 mg/dL (0.2-1.2); CK (CPK) 21 U/L (29-168); Calc. Creatinine Clearance 0 mL/min (70-130); Calcium 8.6 mg/dL (7.8-10.44); Carbon Dioxide 18 mmol/L (23-31); Chloride 112 mmol/L (98-107); Estimated GFR-MDRD 78; Globulin 3.5 g/dL (2.4-3.5); Glucose 119 mg/dL (80-115); Protein, Total 7.6 g/dL (6.0-8.3); Sodium 141 mmol/L (136-145)
[2020-01-30 14:40] LABS: Potassium 2.9 mmol/L (3.5-5.1)
[2020-01-30] MEDS ORDERED: Enoxaparin Sodium 40 MG/0.4 ML SYRINGE ONE (15:21)
[2020-01-30] MEDS ORDERED: Potassium Chloride 20 MEQ TAB ONE (15:22)
--- NOTE | 2020-01-30 15:26 | CT ---
Exam: CT angiogram of the chest HISTORY: Chest pain COMPARISON: 01/28/2020 TECHNIQUE: CT angiogram of the chest is performed in the axial plane. Three-dimensional reformatted i mages are submitted for interpretation FINDINGS: Mediastinum: No mass, lymphadenopathy or hematoma. Heart: Normal size. No significant pericardial fluid. Aorta: No aneurysm or dissection Upper solid abdominal viscera: No acute abnormality. Redemonstration of pneumobilia, likely related t o percutaneous cholecystostomy catheter. Trachea and central bronchi: Patent Pleural spaces: No effusion Lung parenchyma: No masses or consolidation. Persistent opacification left lower lobe which may repre sent chronic change. Pneumothorax: None Osseous structures: No lytic or blastic lesions Pulmonary arteries: Adequate contrast opacification pulmonary arterial system to the level of segment al arteries. No filling defect to suggest pulmonary embolism IMPRESSION:No evidence of pulmonary artery aneurysm to level segmental arteries. No significant inter daniel change.
[2020-01-30] MEDS ORDERED: Iopamidol-370 76% 500 ML 1 ML ONE (15:32)
[2020-01-30] MEDS ORDERED: Acetaminophen 325 MG TAB ONE (16:36)
[2020-01-30 17:39] LABS: Troponin I 0.011 ng/mL (< 0.028)
[2020-01-30] MEDS ORDERED: HumaLOG 300 UNITS/3 ML VIAL SC PRN ×2 (19:07)
[2020-01-30] MEDS ORDERED: Dextrose 5% in Water 1,000 ML IV PRN (19:07)
[2020-01-30] MEDS ORDERED: hydrALAZINE 20 MG/ML VIAL SLOW IVP PRN (19:07)
[2020-01-30] MEDS ORDERED: Dextrose 50% Abboject 50 ML SYRINGE SLOW IVP PRN (19:07)
[2020-01-30 19:46] VITALS: BMI 19.2
[2020-01-30] MEDS: Acetaminophen 325 MG TAB PO PRN (20:05)
--- NOTE | 2020-01-30 20:21 | HP ---
CHIEF COMPLAINT: I am hurting in my shoulder and back. HISTORY OF PRESENT ILLNESS: Ms. Qureshi is a pleasant 64-year-old female, who has a history of hypertension and diabetes mellitus. She says that she began having pain. Originally, she said it was in her chest, but it appears to be in the whole left side of her body, both in the front and in the back, but she points primarily to the back, left shoulder blade and she says that she has been having some shortness of breath along with it as well. She says the pain is constant and she says that she rates it at 10/10. There is no associated symptoms such as nausea, vomiting, no diaphoresis. She says it has been constant for the last 2 days. She denies any cough. No congestion, no fevers, no chills, but she says her hot currently is in the hospital for [place] virus infection. Otherwise, the patient denies any type of strain. No trauma. No injury that she is aware of. The patient was evaluated in the ER. She had a CT angiogram of the chest, which was negative. EKG did not show any significant changes. She had a troponin that was also negative at 0.013, but it was noted that her potassium was low at 2.9. REVIEW OF SYSTEMS: All systems were reviewed and are negative except for that mentioned in the history of present illness. PAST MEDICAL HISTORY: Significant for hypertension, diabetes mellitus, peptic ulcer disease, osteoporosis, and restless legs syndrome. PAST SURGICAL HISTORY: She has had a bowel resection, appendectomy, cholecystectomy, and gastrectomy. ALLERGIES: SHE TOLD ME NO ALLERGIES, BUT IT IS LISTED CIPRO IN THE CHART. SOCIAL HISTORY: She is . She is a nonsmoker and nondrinker. She would like to be a full code. FAMILY HISTORY: No history of any heritable diseases according to the patient. MEDICATIONS: Taken from the ER records and includes: 1. Metformin 500 mg p.o. twice daily. 2. Tramadol 50 mg q.12 as needed. 3. Amlodipine 10 mg daily. 4. Clonidine 0.2 mg twice daily. 5. Lyrica 150 mg 3 times a day. 6. Pantoprazole 40 mg twice a day. 7. Ropinirole 0.5 mg once daily. 8. Belbuca 300 twice a day. 9. Proventil inhaler as needed. 10. Cyclobenzaprine 10 mg 1 to 2 tablets daily. 11. Hydroxychloroquine 200 mg as directed. 12. Prednisone as directed. PHYSICAL EXAMINATION: GENERAL: She is alert and oriented. She is very thin and frail in appearance, but oriented x4. VITAL SIGNS: Blood pressure is 147/89, heart rate 105, respiratory rate of 24, temperature is 98.4, O2 saturation was 98% on room air. HEENT: Pupils are equal, round, and reactive. Extraocular muscles are intact. Her sclerae are anicteric. Throat, there is no erythema, no exudates. NECK: No adenopathy. No bruits. LUNGS: Essentially clear. There is no wheezing, no rales, no rhonchi. CARDIOVASCULAR: She has a normal S1 and S2. I did not appreciate an S3 or S4. No murmurs, clicks, or rubs. ABDOMEN: Soft, nontender, and nondistended. Positive for bowel sounds. No rebound. No guarding. No organomegaly. EXTREMITIES: There is no clubbing or cyanosis. No edema. No calf tenderness. No joint effusions. NEUROLOGIC: Grossly nonfocal. LABORATORY RESULTS: White blood cell count 6.8, hemoglobin 11.6, hematocrit is 34.2, and platelet count is 386. Sodium 141, potassium 2.9, chloride is 112, CO2 is 18, BUN of 17, creatinine 0.75, glucose is 119. AST and ALT were normal. The patient had a CT angiogram of the chest in which it was negative for pulmonary embolism. There was no evidence of any lytic or blastic lesions. She had an EKG and it was significant for sinus tachycardia and some left atrial enlargement, but no other significant change. ASSESSMENT: This is a pleasant 64-year-old female, who presents to the emergency room with left-sided pain, the etiology of which is unclear. It is not typical for coronary artery disease in its description. Her troponin was negative and there was no significant EKG changes. The pain seems more musculoskeletal in its description and it is possible that she could have a severe muscle cramping or strain as a result of the hypokalemia. Her CT scan of the chest was negative for pulmonary embolism and there was no evidence of any osseous disease on CT scan. The patient will be placed in observation. We will continue to trend her cardiac enzymes, at least get one more. We will replace her potassium and re-evaluate and see if this improves her symptoms. 1. Hypokalemia. This etiology is likely due to poor oral intake. This will be replaced. We will also check a serum magnesium level and replace this if needed. 2. Hypertension. Her blood pressure is borderline elevated. We will need to reconcile and restart her home medications. 3. Diabetes mellitus. Again, reconcile and restart home medications as well as a sliding scale insulin. If her pain persist, then we may need to pursue x-ray of the thoracic spine to see whether or not she may have some type of vertebral fracture as she is at risk due to her history of osteoporosis. Job ID: [id number]
[2020-01-30] MEDS: Pregabalin 75 MG CAP PO SCH (20:53)
[2020-01-30] MEDS: cloNIDine 0.1 MG TAB PO SCH (20:53)
[2020-01-30] MEDS: Cyclobenzaprine 10 MG TAB PO PRN (20:55)
[2020-01-30] MEDS: traMADol HCl 50 MG TAB PO PRN (20:55)
[2020-01-30] MEDS ORDERED: Famotidine/PF 20 mg/2ml Vial SLOW IVP SCH (21:00)
[2020-01-30] MEDS ORDERED: rOPINIRole HCl 0.5 MG TAB PO SCH (21:00)
[2020-01-31] MEDS: Acetaminophen 325 MG TAB PO PRN ×2 (04:11→15:55)
[2020-01-31] MEDS: traMADol HCl 50 MG TAB PO PRN ×2 (04:22→15:57)
[2020-01-31 06:07] LABS: Anion Gap 15 mmol/L (10-20); BUN (Urea Nitrogen) 17 mg/dL (9.8-20.1); Calc. Creatinine Clearance 43 mL/min (70-130); Calcium 8.5 mg/dL (7.8-10.44); Carbon Dioxide 18 mmol/L (23-31); Chloride 112 mmol/L (98-107); Estimated GFR-MDRD 77; Glucose 104 mg/dL (80-115); Potassium 3.7 mmol/L (3.5-5.1); Sodium 141 mmol/L (136-145)
[2020-01-31] MEDS ORDERED: Morphine 2 MG/ML SYRINGE SLOW IVP SCH (06:45)
[2020-01-31] MEDS: Amlodipine 10 MG TAB PO SCH (08:25)
[2020-01-31] MEDS: Potassium Chloride 20 MEQ TAB PO SCH (08:25)
[2020-01-31] MEDS: cloNIDine 0.1 MG TAB PO SCH ×2 (08:25→20:33)
[2020-01-31] MEDS: Pregabalin 75 MG CAP PO SCH ×3 (08:26→19:59)
[2020-01-31] MEDS: Enoxaparin Sodium 40 MG/0.4 ML SYRINGE SC SCH (08:26)
[2020-01-31] MEDS ORDERED: Non-Formulary Item 1 EACH (Albuterol Sulfate [Proair Hfa] 1 PUFF) INH PRN (08:31)
[2020-01-31 08:37] LABS: Hemoglobin 11.8 g/dL (12.0-16.0); Mean Corpuscular HGB CONC 33.3 g/dL (32.0-36.0); Mean Corpuscular Hemoglobin 29.5 pg (27.0-31.0); Mean Corpuscular Volume 88.6 fL (78.0-98.0); Mean Platelet Volume 8.5 fL (7.4-10.4); Platelet Count 405 thou/uL (130-400); RBC Distribution Width 13.3 % (11.5-14.5); Red Blood Cell (RBC) Count 4.01 mill/uL (4.20-5.40); White Blood Cell (WBC) Count 4.7 thou/uL (4.8-10.8)
[2020-01-31 08:40] LABS: Lymphocytes 43 % (21-51); MDiff Complete? YES; Monocytes 12 % (0-10); Neutrophil 42 % (42-75); Platelet Morphology Comment Appears Increased; Polychromasia SLIGHT = 2-3 cells (100X) (0-2/hpf); Reactive Lymphocytes 3 % (0-10)
[2020-01-31] MEDS ORDERED: PROVENTIL INHALER 6.7 G (200 INHALATIONS) INH PRN (08:52)
[2020-01-31] MEDS ORDERED: Azithromycin 250 MG TAB PO SCH ×2 (09:00)
[2020-01-31] MEDS: metFORMIN 500 MG TAB PO SCH ×2 (09:54→19:59)
[2020-01-31] MEDS: Magnesium Oxide 400 MG TAB PO SCH (09:54)
[2020-01-31 14:00] LABS: SARS-CoV-2 MS2 Positive; SARS-CoV-2 N Gene Positive; SARS-CoV-2 S Gene Positive; SARS-CoV-2 orf1ab Positive
[2020-01-31 14:06] LABS: Bacteria/HPF 1+ HPF (None Seen); Bilirubin Negative (Negative); Blood, Urine 1+ (Negative); Clarity Extra Turbid (Clear); Glucose, Urine (Dipstick) Normal (Negative); Leukocyte 500 Leu/uL (Negative); Nitrite Negative (Negative); Protein, Urine (Dipstick) 70 mg/dL (Neg-Trace); Squamous Epithelial 0-3 HPF (0-3); Urobilinogen Normal mg/dL (Less than 2); WBC/HPF Greater than 50 HPF (0-3)
[2020-01-31 14:07] LABS: Urine Culture Reflex Yes Yes
--- NOTE | 2020-01-31 16:35 | PDOC.HOSPP ---
- Subjective Encounter Date: 01/31/20 Encounter Time: 16:33 Subjective: Ms. Qureshi was seen today in follow-up of COVID infection, and weakness. She denies feeling short of breath. - Objective Vital Signs & Weight: Vital Signs (12 hours) Temp Pulse Resp BP Pulse Ox 01/31/20 16:00 97.6 F 76 17 96/55 L 98 01/31/20 12:10 97.5 F L 76 19 95/52 L 99 01/31/20 08:30 98.8 F 85 17 140/82 98 Weight Admit Weight 79 lb 12.8 oz Weight 79 lb 12.8 oz I&O: 01/30/20 01/31/20 02/01/20 06:59 06:59 06:59 Intake Total 240 Output Total 900 Balance -660 Result Diagrams: 01/31/20 04:52 01/31/20 04:52 Additional Labs: Accuchecks 01/31/20 01/30/20 12:32 19:29 POC Glucose 109 139 H Hospitalist ROS - Medication Medications: Active Medications Generic Name Dose Route Start Last Admin Trade Name Freq PRN Reason Stop Dose Admin Acetaminophen 650 mg 01/30/20 19:07 01/31/20 15:55 Tylenol PO 650 mg Q4H PRN Administration Headache/Fever/Mild Pain (1-3) Amlodipine Besylate 10 mg 01/31/20 09:00 01/31/20 08:25 Norvasc PO 10 mg DAILY HANNAH Administration Clonidine 0.2 mg 01/30/20 21:00 01/31/20 08:25 Catapres PO 0.2 mg BID HANNAH Administration Cyclobenzaprine HCl 20 mg 01/30/20 20:33 01/30/20 20:55 Flexeril PO 20 mg HS PRN Administration Pain Enoxaparin Sodium 40 mg 01/31/20 09:00 01/31/20 08:26 Lovenox SC 40 mg 0900 HANNAH Administration Magnesium Oxide 400 mg 01/31/20 09:00 01/31/20 09:54 Magnesium Oxide PO 400 mg DAILY HANNAH Administration Metformin HCl 500 mg 01/31/20 09:00 01/31/20 09:54 Glucophage PO 500 mg BID HANNAH Administration Pantoprazole Sodium 40 mg 01/31/20 09:00 01/31/20 09:55 Protonix PO 40 mg BID HANNAH Administration Potassium Chloride 40 meq 01/31/20 08:00 01/31/20 08:25 K-Dur PO 40 meq QAM-WM HANNAH Administration Pregabalin 150 mg 01/30/20 21:00 01/31/20 14:56 Lyrica PO 150 mg TID HANNAH Administration Tramadol HCl 50 mg 01/30/20 20:33 01/31/20 15:57 Ultram PO 50 mg BID PRN Administration Pain - Exam Eye: PERRL, anicteric sclera Heart: RRR, no murmur, no gallops, no rubs, normal peripheral pulses Respiratory: CTAB, no wheezes, no rales, no ronchi Gastrointestinal: soft, non-tender, non-distended, normal bowel sounds, no palpable masses, no hepatomegaly Extremities: no cyanosis, no edema Hosp A/P (1) COVID-19 virus infection Code(s): U07.1 - COVID-19 Status: Acute (2) Chest pain Code(s): R07.9 - CHEST PAIN, UNSPECIFIED Status: Acute (3) Diabetes type 2, controlled Code(s): E11.9 - TYPE 2 DIABETES MELLITUS WITHOUT COMPLICATIONS Status: Chronic Qualifiers: (4) HTN (hypertension) Code(s): I10 - ESSENTIAL (PRIMARY) HYPERTENSION Status: Chronic Qualifiers: - Plan * COVID-19 infection- will continue supportive care, trend Inflammatory markers. This is approximately the 3rd day of symptoms * Chest pain- probable musculo-skeletal in origin- vs. Pleuritic chest pain from COVID-19 infection- this has improved some. * HTN- blood pressure is stable * DM- blood glucose is stable * Continue DVT and GI prophylaxis
[2020-01-31] MEDS: rOPINIRole HCl 0.5 MG TAB PO SCH (17:40)
--- NOTE | 2020-01-31 18:41 | PDOC.EVN ---
Event Note - Event Note Event Note: I returned to discuss trial treatment with Remdesivir with Kiera. She confirms that this is about the third day of treatment. I spoke with Dr. Lara regarding her medical case. She is a candidate for the treatment. I spoke with regarding the risks and benefirs. She was informed that this is experimental, but some studies have demonstrated that it may shorten the length of the infection. There is a risk for liver, and kidney injury, and this was discussed. We will be monitoring these parameters during treatment. She is agreeable to treatment. I received a call from our Pharmacy. I was informed that since the patient is not requiring supplemental oxygen, she is not a candidate for Remdesivir. The protocol will not be started.
[2020-02-01] MEDS: traMADol HCl 50 MG TAB PO PRN ×2 (00:01→21:33)
[2020-02-01] MEDS: predniSONE 20 MG TAB PO SCH (07:50)
[2020-02-01] MEDS: Pregabalin 75 MG CAP PO SCH ×3 (07:51→20:08)
[2020-02-01] MEDS: Potassium Chloride 20 MEQ TAB PO SCH (07:51)
[2020-02-01] MEDS: cloNIDine 0.1 MG TAB PO SCH ×2 (07:51→20:08)
[2020-02-01] MEDS: Magnesium Oxide 400 MG TAB PO SCH (07:51)
[2020-02-01] MEDS: Folic Acid/Vit B Comp W-C PO SCH (07:52)
[2020-02-01] MEDS: metFORMIN 500 MG TAB PO SCH ×2 (07:52→20:09)
[2020-02-01] MEDS: Azithromycin 250 MG TAB PO SCH (07:52)
[2020-02-01] MEDS: Amlodipine 10 MG TAB PO SCH (07:53)
[2020-02-01] MEDS: Ascorbic Acid 500 mg Chewable Tablet PO SCH (07:54)
[2020-02-01] MEDS: Enoxaparin Sodium 40 MG/0.4 ML SYRINGE SC SCH (07:54)
[2020-02-01] MEDS ORDERED: cefTRIAXone\\ROCEPHIN 1 GM in Sodium Chloride 0.9% 100 ML IVPB SCH (15:00)
[2020-02-01] MEDS ORDERED: diphenhydrAMINE 25 MG CAP PO PRN (15:01)
[2020-02-01] MEDS ORDERED: Ondansetron ODT 4 MG TAB PO PRN (15:01)
--- NOTE | 2020-02-01 15:01 | PDOC.HOSPP ---
- Subjective Encounter Date: 02/01/20 Encounter Time: 14:58 Subjective: Ms. Qureshi was seen today in follow-up of COVID infection. She says the pain she experienced on her left side has completely resolved. She denies feeling short of breath. - Objective Vital Signs & Weight: Vital Signs (12 hours) Temp Pulse Resp BP Pulse Ox 02/01/20 12:05 98.8 F 83 16 110/58 L 98 02/01/20 08:03 98.9 F 100 16 167/93 H 97 02/01/20 04:26 98.8 F 94 16 151/86 H 98 Weight Admit Weight 79 lb 12.8 oz Weight 79 lb 12.8 oz I&O: 01/31/20 02/01/20 02/02/20 06:59 06:59 06:59 Intake Total 240 1320 Output Total 900 555 Balance -660 765 Result Diagrams: 01/31/20 04:52 01/31/20 04:52 Additional Labs: Accuchecks 02/01/20 02/01/20 01/31/20 12:07 06:17 20:05 POC Glucose 147 H 94 116 H 01/31/20 17:54 POC Glucose 112 H Hospitalist ROS - Medication Medications: Active Medications Generic Name Dose Route Start Last Admin Trade Name Freq PRN Reason Stop Dose Admin Acetaminophen 650 mg 01/30/20 19:07 01/31/20 15:55 Tylenol PO 650 mg Q4H PRN Administration Headache/Fever/Mild Pain (1-3) Amlodipine Besylate 10 mg 01/31/20 09:00 02/01/20 07:53 Norvasc PO 10 mg DAILY HANNAH Administration Ascorbic Acid 1,000 mg 02/01/20 09:00 02/01/20 07:54 Vitamin C PO 1,000 mg DAILY HANNAH Administration Azithromycin 250 mg 02/01/20 09:00 02/01/20 07:52 Zithromax PO 02/04/20 09:01 250 mg DAILY HANNAH Administration Clonidine 0.2 mg 01/30/20 21:00 02/01/20 07:51 Catapres PO 0.2 mg BID HANNAH Administration Cyclobenzaprine HCl 20 mg 01/30/20 20:33 01/30/20 20:55 Flexeril PO 20 mg HS PRN Administration Pain Enoxaparin Sodium 40 mg 01/31/20 09:00 02/01/20 07:54 Lovenox SC 40 mg 0900 HANNAH Administration Magnesium Oxide 400 mg 01/31/20 09:00 02/01/20 07:51 Magnesium Oxide PO 400 mg DAILY HANNAH Administration Metformin HCl 500 mg 01/31/20 09:00 02/01/20 07:52 Glucophage PO 500 mg BID HANNAH Administration Pantoprazole Sodium 40 mg 01/31/20 09:00 02/01/20 07:52 Protonix PO 40 mg BID HANNAH Administration Potassium Chloride 40 meq 01/31/20 08:00 02/01/20 07:51 K-Dur PO 40 meq QAM-WM HANNAH Administration Prednisone 60 mg 02/01/20 08:00 02/01/20 07:50 Prednisone PO 60 mg QAM-WM HANNAH Administration Pregabalin 150 mg 01/30/20 21:00 02/01/20 07:51 Lyrica PO 150 mg TID HANNAH Administration Ropinirole HCl 0.5 mg 01/31/20 17:00 01/31/20 17:40 Requip PO 0.5 mg 1700 HANNAH Administration Tramadol HCl 50 mg 01/30/20 20:33 02/01/20 00:01 Ultram PO 50 mg BID PRN Administration Pain Vitamin B Complex/Vit C/Folic Acid 1 tab 02/01/20 09:00 02/01/20 07:52 Nephro-Red Tablet PO 1 tab DAILY HNANAH Administration - Exam Eye: PERRL, anicteric sclera Heart: RRR, no murmur, no gallops, no rubs, normal peripheral pulses Respiratory: CTAB, no wheezes, no rales, no ronchi, normal chest expansion, no tachypnea Gastrointestinal: soft, non-tender, non-distended, normal bowel sounds, no palpable masses Extremities: no cyanosis, no edema Hosp A/P (1) COVID-19 virus infection Code(s): U07.1 - COVID-19 Status: Acute (2) Chest pain Code(s): R07.9 - CHEST PAIN, UNSPECIFIED Status: Acute (3) Diabetes type 2, controlled Code(s): E11.9 - TYPE 2 DIABETES MELLITUS WITHOUT COMPLICATIONS Status: Chronic Qualifiers: (4) HTN (hypertension) Code(s): I10 - ESSENTIAL (PRIMARY) HYPERTENSION Status: Chronic Qualifiers: - Plan * COVID-19 infection- She is relately asymptomatic at this time * She is not a candidate for Remdesivir * HTN- blood pressure is stable * DM- blood glucose is stable * Continue DVT and GI prophylaxis * I suspect that she could be discharged tomorrow, for close monitoring at home. if she remains stable
[2020-02-01] MEDS: rOPINIRole HCl 0.5 MG TAB PO SCH (17:44)
[2020-02-01] MEDS: Cyclobenzaprine 10 MG TAB PO PRN (22:50)
[2020-02-02] MEDS: Acetaminophen 325 MG TAB PO PRN ×2 (02:37→08:37)
--- NOTE | 2020-02-02 06:41 | PDOC.EVN ---
Event Note - Event Note Event Note: patient had fall, bumped L posterior scalp after falling out of bed. neurological exam intact, patient aox3, rolled in her sleep, code green called due to being on lovenox, patient to be sent for CT of head. bp mildly elevated but may be due to pain, follow vitals once stable and ct brain, otherwise patient seems unharmed
--- NOTE | 2020-02-02 07:54 | CT ---
CT OF THE BRAIN WITHOUT CONTRAST: HISTORY: COVID positive patient. The patient fell and hit her head and is on blood thinners. COMPARISON: 07/08/2019. TECHNIQUE: Multiple contiguous axial images were obtained in a CT of the brain without contrast. FINDINGS: The brain is normal in morphology and attenuation without focal lesions or confluent areas of infarct ion. There is no evidence of hydrocephalus, intracranial hemorrhage, or extraaxial fluid collection. The calvarium and overlying soft tissues are unremarkable. The visualized paranasal sinuses and mast oid air cells are well aerated. IMPRESSION: No evidence of acute intracranial abnormality. POS: EAA
[2020-02-02] MEDS: cloNIDine 0.1 MG TAB PO SCH (08:37)
[2020-02-02] MEDS: Enoxaparin Sodium 40 MG/0.4 ML SYRINGE SC SCH (08:37)
[2020-02-02] MEDS: Azithromycin 250 MG TAB PO SCH (08:37)
[2020-02-02] MEDS: Magnesium Oxide 400 MG TAB PO SCH (08:38)
[2020-02-02] MEDS: metFORMIN 500 MG TAB PO SCH (08:38)
[2020-02-02] MEDS: Potassium Chloride 20 MEQ TAB PO SCH (08:38)
[2020-02-02] MEDS: Folic Acid/Vit B Comp W-C PO SCH (08:38)
[2020-02-02] MEDS: predniSONE 20 MG TAB PO SCH (08:38)
[2020-02-02] MEDS: Amlodipine 10 MG TAB PO SCH (08:39)
[2020-02-02] MEDS: Ascorbic Acid 500 mg Chewable Tablet PO SCH (08:39)
[2020-02-02] MEDS: Pregabalin 75 MG CAP PO SCH ×2 (08:39→15:29)
--- NOTE | 2020-02-02 13:23 | PQF ---
CLINICAL DOCUMENTATION IMPROVEMENT CLARIFICATION FORM: ICD-10 Updated PLEASE DO AN ADDENDUM TO THE PROGRESS NOTE WITH ANY DOCUMENTATION UPDATES OR ADDITIONS AND CARRY THROUGH TO DC SUMMARY. THANK YOU. DATE: 02/02/20 ATTN: DR. PISANO Please exercise your independent, professional judgment in responding to the clarification form. Clinical indicators are provided on the bottom of this form for your review Please check appropriate box(s): [ ] Associated Diagnosis: [ X ] Other diagnosis Asymptomatic Bactiuria____ [ ] Unable to determine In addition, please specify: Present on Admission (POA): [ X] Yes [ ] No [ ] Unable to determine For continuity of documentation, please document condition throughout progress notes and discharge summary. Thank You. CLINICAL INDICATORS - SIGNS / SYMPTOMS/ LABS are present in the medical record 01/30: UA - 500 A Leukocyte Esterase, WBC >50, Bacteria 1+; Urine Culture 01/30 : E coli RISKS: CHILLS/MALAISE (ER) H/O DIABETES (H&P) TREATMENT: IV ROCEPHIN (01/31-PRESENT) (This form is maintained as a part of the permanent medical record) 2014 [employer]. All Rights Reserved [email or web address] [facility]
[2020-02-02] MEDS: traMADol HCl 50 MG TAB PO PRN (15:30)
[2020-02-02 16:31] VITALS: BP 127/69; TEMP 98
--- NOTE | 2020-02-02 16:47 | PDOC.HOSPP ---
- Subjective Encounter Date: 02/02/20 Encounter Time: 16:46 Subjective: Ms. Qureshi was seen today in follow-up of COVID positive pneumonia. She says she feels fine. She does not have any complaints. - Objective Vital Signs & Weight: Vital Signs (12 hours) Temp Pulse Pulse Pulse Resp BP BP 02/02/20 15:39 98 F 96 14 02/02/20 12:47 98.9 F 79 22 H 02/02/20 08:51 98.3 F 87 17 02/02/20 08:08 104 H 93 139/102 H 141/77 H BP BP Pulse Ox Pulse Ox Pulse Ox 02/02/20 15:39 127/69 99 02/02/20 12:47 100/57 L 97 02/02/20 08:51 155/80 H 97 02/02/20 08:08 99 100 Weight Admit Weight 79 lb 12.8 oz Weight 79 lb 12.8 oz I&O: 02/01/20 02/02/20 02/03/20 06:59 06:59 06:59 Intake Total 1320 1200 Output Total 555 950 Balance 765 250 Result Diagrams: 01/31/20 04:52 01/31/20 04:52 Additional Labs: Accuchecks 02/02/20 02/02/20 02/01/20 12:47 05:43 20:17 POC Glucose 209 H 87 135 H 02/01/20 17:54 POC Glucose 147 H Hospitalist ROS - Medication Medications: Active Medications Generic Name Dose Route Start Last Admin Trade Name Freq PRN Reason Stop Dose Admin Acetaminophen 650 mg 01/30/20 19:07 02/02/20 08:37 Tylenol PO 650 mg Q4H PRN Administration Headache/Fever/Mild Pain (1-3) Amlodipine Besylate 10 mg 01/31/20 09:00 02/02/20 08:39 Norvasc PO 10 mg DAILY HANNAH Administration Ascorbic Acid 1,000 mg 02/01/20 09:00 02/02/20 08:39 Vitamin C PO 1,000 mg DAILY HANNAH Administration Azithromycin 250 mg 02/01/20 09:00 02/02/20 08:37 Zithromax PO 02/04/20 09:01 250 mg DAILY HANNAH Administration Clonidine 0.2 mg 01/30/20 21:00 02/02/20 08:37 Catapres PO 0.2 mg BID HANNAH Administration Cyclobenzaprine HCl 20 mg 01/30/20 20:33 02/01/20 22:50 Flexeril PO 20 mg HS PRN Administration Pain Enoxaparin Sodium 40 mg 01/31/20 09:00 02/02/20 08:37 Lovenox SC 40 mg 0900 HANNAH Administration Insulin Human Lispro 0 units 01/30/20 19:07 02/02/20 13:29 Humalog SC 4 unit .MODERATE SLIDING SC PRN Administration Moderate Correctional Scale Magnesium Oxide 400 mg 01/31/20 09:00 02/02/20 08:38 Magnesium Oxide PO 400 mg DAILY HANNAH Administration Metformin HCl 500 mg 01/31/20 09:00 02/02/20 08:38 Glucophage PO 500 mg BID HANNAH Administration Pantoprazole Sodium 40 mg 01/31/20 09:00 02/02/20 08:39 Protonix PO 40 mg BID HANNAH Administration Potassium Chloride 40 meq 01/31/20 08:00 02/02/20 08:38 K-Dur PO 40 meq QAM-WM HANNAH Administration Prednisone 60 mg 02/01/20 08:00 02/02/20 08:38 Prednisone PO 60 mg QAM-WM HANNAH Administration Pregabalin 150 mg 01/30/20 21:00 02/02/20 15:29 Lyrica PO 150 mg TID HANNAH Administration Tramadol HCl 50 mg 01/30/20 20:33 02/02/20 15:30 Ultram PO 50 mg BID PRN Administration Pain Vitamin B Complex/Vit C/Folic Acid 1 tab 02/01/20 09:00 02/02/20 08:38 Nephro-Red Tablet PO 1 tab DAILY HANNAH Administration - Exam Eye: PERRL, anicteric sclera Heart: RRR, no murmur, no gallops, no rubs, normal peripheral pulses Respiratory: CTAB (with the exception of occasional rales) Gastrointestinal: soft, non-tender, non-distended, normal bowel sounds, no palpable masses, no hepatomegaly Extremities: no cyanosis, no edema Hosp A/P (1) COVID-19 virus infection Code(s): U07.1 - COVID-19 Status: Acute (2) Chest pain Code(s): R07.9 - CHEST PAIN, UNSPECIFIED Status: Acute (3) Diabetes type 2, controlled Code(s): E11.9 - TYPE 2 DIABETES MELLITUS WITHOUT COMPLICATIONS Status: Chronic Qualifiers: (4) HTN (hypertension) Code(s): I10 - ESSENTIAL (PRIMARY) HYPERTENSION Status: Chronic Qualifiers: - Plan * COVID-19 infection- She remains stable. She has never required any supplemental oxygen * The inflammatory markers are trending down * She is stable for discharge home.
[2020-02-02] MEDS ORDERED: cefTRIAXone\\ROCEPHIN 1 GM in Sodium Chloride 0.9% 100 ML IVPB SCH (21:00)
[2020-02-02] MEDS ORDERED: rOPINIRole HCl 0.5 MG TAB PO SCH (21:00)
--- NOTE | 2020-02-03 03:09 | DIS ---
DATE OF ADMISSION: 01/30/2020 DATE OF DISCHARGE: 02/02/2020 PRIMARY CARE PHYSICIAN: Tyesha Jesus. DISCHARGE DISPOSITION: Home. DISCHARGE DIAGNOSES: 1. COVID-19 infection. 2. Hypertension. 3. Osteoporosis. 4. Restless legs syndrome. 5. Diabetes mellitus, type 2. 6. Peptic ulcer disease. 7. History of recurrent pancreatitis. DISCHARGE MEDICATIONS: Include: 1. Vitamin C 1000 mg p.o. daily. 2. Ultram 200 mg q.6 hours as needed. 3. Ropinirole 0.5 mg daily. 4. Lyrica 150 mg p.o. t.i.d. 5. Prednisone 60 mg daily. 6. Protonix 40 mg twice daily. 7. Zofran 4 mg q.6 as needed. 8. Metformin 500 mg b.i.d. 9. Benadryl 25 mg q.4 hours as needed. 10. Flexeril 20 mg p.o. at bedtime. 11. Clonidine 0.2 mg p.o. daily. 12. Amlodipine 10 mg daily. 13. ProAir inhaler q.4 hours as needed. IMAGING DURING THE HOSPITAL STAY: The patient had a CT scan of the chest, CT angio, which was negative for pulmonary artery aneurysm or embolism. There is no evidence of any interval change. CODE STATUS: Full code. ALLERGIES: TO CIPRO AND CODEINE. HOSPITAL COURSE: Ms. Qureshi is a pleasant 64-year-old female, who presented to the emergency room complaining of some pain on the left side of her chest which was radiating to the back toward her shoulder blades. It was more or less positional and somewhat pleuritic in character. She had a CT angiogram of the chest in the ER, which was negative for PE, but she had exposure to family members, who have tested positive for COVID-19 infection. In fact, her is currently hospitalized for COVID infection. For this reason, a COVID-19 swab was done, which came back positive. The patient was monitored in the hospital for several days to see which direction she would go. During the hospital stay, she remained relatively asymptomatic. She never required any supplemental oxygen. The pain in the left side of the chest actually resolved without any specific treatment. We monitored her inflammatory markers and they began to decline. As a result of her clinical stability, we made a decision to go ahead and discharge her home. She was evaluated for possible remdesivir treatment, but was felt not to be a candidate due to the fact that she did not require supplemental oxygen. Her symptoms are improving. The patient was instructed to self quarantine for the next 14 days and follow CDC guidelines regarding the COVID-19 infection in patients, who are infected and to return to the hospital if her symptoms were to worsen. Job ID: [id number]
--- NOTE | 2020-02-05 08:50 | PQF ---
ALVIN PATEL TONI MD [id number] [facility]-230 [id number] CLINICAL DOCUMENTATION CLARIFICATION FORM: POST DISCHARGE Addendum to original discharge summary date: ____ Late entry note date: __ DATE: 02/05/2020 ATTN: Jarad Zeng Please exercise your independent, professional judgment in responding to the clarification form. Clinical indicators are provided on the bottom of this form for your review Please check appropriate box(es): [ ] Sepsis due [ X ] Localized infection without sepsis [ ] Other diagnosis [ ] Unable to determine In addition, please specify: Present on Admission (POA): [ X ] Yes [ ] No [ ] Unable to determine For continuity of documentation, please document condition throughout progress notes and discharge summary. Thank You. CLINICAL INDICATORS - SIGNS / SYMPTOMS / LABS / RESULTS AND LOCATION IN MR PN 01/31 "Covid 19 infection" PN 02/01 "Covid positive pneumonia" Vital Signs Temp: 01/29=98.9 Vital Signs Pulse: 01/3162=483,110 Vital Signs Respi: 01/29=38 01/30=22 01/31=25 02/01=22 Vital Signs BP: 01/30=95/52 01/3137=246/58 Labs WBC: 01/29=6.8 01/30=4.7 RISK FACTORS / RESULTS AND LOCATION IN MR DM type 2-ED Notes 01/29 64 years old female-HP 01/29 HTN-HP 01/29 Covid19 infection-PN 01/30 TREATMENTS / RESULTS AND LOCATION IN MR Chest Xray-Collected 01/29 Azithromycin 500mg Oral-OCT 12 Rocephin 1gm IV-OCT 12 (This form is maintained as a part of the permanent medical record) 2014 [employer]. All Rights Reserved [email or web address]
--- NOTE | 2020-02-05 08:55 | PQF ---
ALVIN PATEL TONI MD [id number] [facility]-230 [id number] CLINICAL DOCUMENTATION CLARIFICATION FORM: POST DISCHARGE Addendum to original discharge summary date: ____ Late entry note date: __ DATE: 02/05/2020 ATTN:Jarad Zeng Please exercise your independent, professional judgment in responding to the clarification form. Clinical indicators are provided on the bottom of this form for your review COVID 19 Clarification and Manifestations: Please check appropriate box(es): B.COVID 19 virus with associated manifestations: (please check all that apply) [ ] Pneumonia [ ] Sepsis Viral [ X ] Other diagnosis ___COVID infection [ ] Unable to determine In addition, please specify: Present on Admission (POA): X[ ] Yes [ ] No [ ] Unable to determine For continuity of documentation, please document condition throughout progress notes and discharge summary. Thank You. Clinical Indicators - Signs / Symptoms / Labs with Results and Location in Medical Record PN 01/31 "Covid 19 infection asymptomatic" PN 02/01 "Covid positive pneumonia" Vital Signs Temp: 01/29=98.9 Vital Signs Pulse: 01/3192=758,110 Vital Signs Respi: 01/29=38 01/30=22 01/31=25 02/01=22 Vital Signs BP: 01/30=95/52 01/3186=079/58 Labs WBC: 01/29=6.8 01/30=4.7 Risk Factors with Results and Location in Medical Record DM type 2-ED Notes 01/29 64 years old female-HP 01/29 HTN-HP 01/29 Covid19 infection-PN 01/30 Treatments with Results and Location in Medical Record Chest Xray-Collected 01/29 Azithromycin 500mg Oral-OCT 12 Rocephin 1gm IV-OCT 12 (This form is maintained as a part of the permanent medical record) 2014 [employer] All Rights Reserved [email or web address] [phone] [email or web address]
== END 2020-02-02 18:25 | disposition home or self-care (01) | DRG 177 ==
LOC: ERS 13:30 → ERHOLD 15:23 → OBSVTOIN 15:23 → 2SW 19:26
PROVIDERS: ADMIT Internal Medicine; ATTEND Internal Medicine
DX: U07.1 COVID-19 (principal); J12.89 Other viral pneumonia; M19.90 Unspecified osteoarthritis, unspecified site; E11.40 Type 2 diabetes mellitus with diabetic neuropathy, unspecified; I10 Essential (primary) hypertension; M81.0 Age-related osteoporosis without current pathological fracture; E87.6 Hypokalemia; J45.909 Unspecified asthma, uncomplicated; G25.81 Restless legs syndrome; Z90.49 Acquired absence of other specified parts of digestive tract; Z87.11 Personal history of peptic ulcer disease; Z90.710 Acquired absence of both cervix and uterus; Z88.1 Allergy status to other antibiotic agents; Z79.84 Long term (current) use of oral hypoglycemic drugs; Z79.899 Other long term (current) drug therapy; Z91.81 History of falling
CPT/HCPCS: 36415; 36416; 70450; 71045; 71275; 80048; 80053; 81001; 82550; 82728; 83735; 84484; 85025; 85379; 86140; 87077; 87086; 87186; 87635; 93005; 96372; 96374; 96376; G0378; J0696; J1650; J2270; J3490; J7512; Q9967; U0003

== ENCOUNTER 2020-02-26 11:33 | Emergency (ER) | payer OTHER ==
[2020-02-27 14:32] LABS: SARS-CoV-2 MS2 Positive; SARS-CoV-2 N Gene Positive; SARS-CoV-2 S Gene Positive; SARS-CoV-2 orf1ab Negative
== END 2020-02-26 12:36 | disposition home or self-care (01) ==
LOC: ERS 11:33
DX: U07.1 COVID-19 (principal); M19.90 Unspecified osteoarthritis, unspecified site; E11.40 Type 2 diabetes mellitus with diabetic neuropathy, unspecified; I10 Essential (primary) hypertension; M81.0 Age-related osteoporosis without current pathological fracture; J45.909 Unspecified asthma, uncomplicated; Z79.84 Long term (current) use of oral hypoglycemic drugs; Z79.899 Other long term (current) drug therapy
CPT/HCPCS: 87635; 99283; U0003

== ENCOUNTER 2020-02-28 07:09 | Day surgery (SDC) | payer OTHER ==
[2020-02-27 11:18] VITALS: BMI 19.5
[2020-02-28] MEDS ORDERED: Ondansetron PF 4 MG/2 ML Vial IVP PRN (07:33)
[2020-02-28] MEDS ORDERED: cefTRIAXone\\ROCEPHIN 1 GM in Sodium Chloride 0.9% 100 ML IVPB SCH (07:45)
[2020-02-28] MEDS ORDERED: Midazolam HCl 2 mg/2 ml Vial ONE (07:47)
[2020-02-28] MEDS ORDERED: Fentanyl 100 MCG/2 ML VIAL ONE (07:48)
[2020-02-28] MEDS ORDERED: Ondansetron PF 4 MG/2 ML Vial ONE (07:48)
[2020-02-28] MEDS ORDERED: Iopamidol 300 61% 50 ML VIAL FS ONE (09:04)
[2020-02-28 09:31] VITALS: BP 143/74; TEMP 98.9
--- NOTE | 2020-02-28 10:07 | SPC ---
Percutaneous transhepatic cholangiogram Percutaneous dilatation of biliary stricture Conscious sedation: At least 40 minutes spent with the patient for conscious sedation. HISTORY: Biliary stricture. Serial dilatation. FINDINGS: After explaining the procedure and answering all questions, the external portion of the per cutaneous biliary drain and the surrounding skin were prepped and draped in usual sterile fashion. Small amount of contrast was injected, opacifying a mildly distended biliary system. Contrast did not pass into the duodenum or the distal portion of the drain. 0.035 Bentson wire was carefully passed through the catheter and into the duodenum to hold position. Old catheter was carefully removed. A 7 Turkish vascular sheath was placed into the right lobe bile ducts to hold position. Small amount of additional contrast was carefully injected, with persistent o bstruction at the central common duct. An 8 mm x 4 cm balloon was carefully placed over the wire, centered at the biliary stricture. Careful serial dilatation performed, achieving full balloon profile. Balloon was pulled back, and injection of a small amount of additional contrast showed persistent obstruction. A 9 mm x 4 cm dilatation balloon was then carefully placed over the wire to the level of the strictur e. Serial dilatation achieving full balloon profile. The balloon was partially withdrawn, injection of a small amount of contrast showed it to pass easily into the duodenum, around the wire. The biliary system did not decompress, however. A new 12 Turkish internal/external biliary drain was then carefully placed over the wire, with the pro ximal sideholes in the right lobe biliary system and the distal loop of the catheter within the duodenum. The catheter drained yellow bile. It was secured externally with 0 silk suture and left elke ining to gravity. Patient tolerated the procedure well and was eventually discharged in good condition. Fluoroscopy time 5.6 minutes. IMPRESSION : Significant improvement in residual caliber of the central common bile duct stricture after dilatatio n to 9 mm. Exchange for new 12 Turkish internal/external biliary drain.
== END 2020-02-28 10:10 | disposition home or self-care (01) ==
LOC: SPEC 07:09
PROVIDERS: ATTEND Surgery
PROC: 0F7 Hepatobiliary System and Pancreas, Dilation (ICD-10-PCS; principal; 2020-02-28)
DX: K83.1 Obstruction of bile duct (principal); U07.1 COVID-19; Z88.1 Allergy status to other antibiotic agents; Z88.5 Allergy status to narcotic agent
CPT/HCPCS: 47531; 47535; 75984; J0696; J2250; J2405; J3010; J3490; Q9967

== ENCOUNTER 2020-04-09 06:52 | Day surgery (SDC) | payer OTHER ==
[2020-04-08 14:14] VITALS: BMI 20.5
[2020-04-09] MEDS ORDERED: Ondansetron PF 4 MG/2 ML Vial IVP PRN (07:29)
[2020-04-09] MEDS ORDERED: cefTRIAXone\\ROCEPHIN 1 GM in Sodium Chloride 0.9% 100 ML IVPB SCH (07:30)
[2020-04-09] MEDS ORDERED: Fentanyl 100 MCG/2 ML VIAL ONE (07:40)
[2020-04-09] MEDS ORDERED: Midazolam HCl 2 mg/2 ml Vial ONE (07:40)
[2020-04-09 09:24] VITALS: BP 121/69; TEMP 98.4
--- NOTE | 2020-04-09 09:44 | SPC ---
PROCEDURE: [facility] [place] [facility] BILIARY DRAINAGE CA PROVIDED CLINICAL HISTORY: Biliary stricture the level of the ampulla. Serial dilatations are being performed. COMPARISON: 02/28/2020 TECHNIQUE: The procedure including the risks and complications were explained to the patient, and informed conse nt was obtained. 1 g of Rocephin was administered intravenously prior to the procedure. 50 mcg of fentanyl was administered during the exam. The right-sided biliary drainage catheter and surrounding area were meticulously prepped and draped i n usual sterile fashion. The tube was cut and exchanged over a 0.035 inch xkoto guidewire for a 6 Cameroonian vascular sheath. A cholangiogram was performed again demonstrating severe narrowing in the reg ion of the distal common duct/ampulla without contrast extending into the small bowel. A 9 mm x 4 cm angioplasty balloon was placed over the guidewire, and angioplasty was performed at sit e of the stricture. The waist in the balloon easily resolved with the balloon achieving full profile. Balloon dilatation was performed twice for a total of 1 minute of inflation time each time t he balloon was dilated. After the balloon was deflated, contrast extending into the small bowel. The angioplasty balloon and 6 Cameroonian vascular sheath were exchanged over the guidewire for a new 12 F rench internal/external biliary drainage catheter. Most proximal sidehole was positioned in a right hepatic duct. The catheter was sutured in place utilizing 2-0 Ethilon suture material. The biliary tu be was flushed and placed to gravity drainage. The patient tolerated the procedure well and without immediate consultation. Patient was transported to radiology nurses holding area for further monitoring prior to discharge. IMPRESSION: 1. Technically successful balloon dilatation distal common duct/ampullary stricture to 9 mm diameter. 2. Successful replacement of 12 Cameroonian internal/external biliary drainage catheter.
[2020-04-09] MEDS ORDERED: Iopamidol 300 61% 50 ML VIAL FS ONE (13:37)
== END 2020-04-09 10:45 | disposition home or self-care (01) ==
LOC: SPEC 06:52
PROVIDERS: ATTEND Surgery
PROC: 0F7 Hepatobiliary System and Pancreas, Dilation (ICD-10-PCS; principal; 2020-04-09)
DX: K83.1 Obstruction of bile duct (principal); U07.1 COVID-19; E11.9 Type 2 diabetes mellitus without complications; I10 Essential (primary) hypertension; K21.9 Gastro-esophageal reflux disease without esophagitis; J45.909 Unspecified asthma, uncomplicated; D64.9 Anemia, unspecified; Z79.84 Long term (current) use of oral hypoglycemic drugs; Z79.899 Other long term (current) drug therapy; Z88.1 Allergy status to other antibiotic agents; Z88.5 Allergy status to narcotic agent
CPT/HCPCS: 47531; 47536; 47542; 75984; C1725; J0696; J2250; J2405; J3010; J3490; Q9967

== ENCOUNTER → 2020-05-22 | Day surgery (SDC) | payer OTHER ==
[~2020-05-22] MED LIST changes: +Iopamidol 300 61% 50 ML VIAL FS ONE; -Iopamidol-370 76% 500 ML 1 ML ONE
--- NOTE | 2020-05-22 09:56 | SPC ---
Fluoroscopic cholangiogram through existing catheter HISTORY: Increasing pain. Biliary stricture with internal/external biliary drain. FINDINGS: After answering all questions, approximately 5 cc of contrast was carefully and gently inst illed into the biliary catheter. There was immediate opacification of a nondistended central hepatic duct and left bile duct. Over the course of 10 minutes, with the external portion of the drai n clamped, almost all of the contrast passed into the duodenum, indicating patency of the internal portion of the biliary drain. Patient tolerated the procedure well and was dismissed in good condition. IMPRESSION : Internal and external drainage functions of the biliary drain are widely patent. No evidence of compl ication.
== END ==
LOC: SPEC 08:37
PROVIDERS: ATTEND Surgery
PROC: BF502Z0 Other Imaging of Bile Ducts using Fluorescing Agent, Intraoperative (ICD-10-PCS; principal; 2020-05-22)
DX: K83.1 Obstruction of bile duct (principal); Z88.1 Allergy status to other antibiotic agents; Z88.5 Allergy status to narcotic agent
CPT/HCPCS: 47531; Q9967

== ENCOUNTER 2020-10-24 02:06 | Emergency (ER) | payer OTHER ==
[2020-10-24] MEDS ORDERED: Cefepime 2 GM VIAL ONE (02:38)
[2020-10-24] MEDS ORDERED: Morphine 4 MG/ML VIAL ONE (02:38)
[2020-10-24 02:48] LABS: #Lymphocytes 1.3 thou/uL (1.20-3.40); #Monocytes 0.6 thou/uL (0.11-0.59); #Neutrophils 8.5 thou/uL (1.40-6.50); %Basophils 0.4 % (0.0-1.0); %Eosinophils 0.1 % (0.0-10.0); %Lymphocytes 12.4 % (21.0-51.0); %Neutrophils 81.2 % (42.0-75.0); Hemoglobin 7.6 g/dL (12.0-16.0); Mean Corpuscular HGB CONC 33.3 g/dL (32.0-36.0); Mean Corpuscular Hemoglobin 31.4 pg (27.0-31.0); Mean Corpuscular Volume 94.4 fL (78.0-98.0); Platelet Count 423 thou/uL (130-400); RBC Distribution Width 12.1 % (11.5-14.5); Red Blood Cell (RBC) Count 2.43 mill/uL (4.20-5.40); White Blood Cell (WBC) Count 10.4 thou/uL (4.8-10.8)
[2020-10-24 03:02] LABS: ALT (SGPT) 12 U/L (8-55); AST (SGOT) 13 U/L (5-34); Alkaline Phosphatase 110 U/L (40-110); Anion Gap 16 mmol/L (10-20); BUN (Urea Nitrogen) 10 mg/dL (9.8-20.1); Bilirubin, Total 0.5 mg/dL (0.2-1.2); Calc. Creatinine Clearance 0 mL/min (70-130); Calcium 7.8 mg/dL (7.8-10.44); Carbon Dioxide 20 mmol/L (23-31); Chloride 106 mmol/L (98-107); Globulin 2.4 g/dL (2.4-3.5); Glucose 136 mg/dL (80-115); Lipase Less than 4 U/L (8-78); Potassium 4.2 mmol/L (3.5-5.1); Protein, Total 5.4 g/dL (5.8-8.1); Sodium 138 mmol/L (136-145)
[2020-10-24] MEDS ORDERED: Piperacillin/Tazobactam 4.5 GM VIAL ONE (03:12)
[2020-10-24] MEDS ORDERED: Ondansetron PF 4 MG/2 ML Vial ONE (04:06)
[2020-10-24] MEDS ORDERED: Vancomycin 1 GM/200 ML BAG ONE (04:27)
[2020-10-24 05:59] LABS: Bilirubin Negative (Negative); Blood, Urine Negative (Negative); Clarity Clear (Clear); Glucose, Urine (Dipstick) Normal (Negative); Ketone, Urine 40 mg/dL (Negative); Leukocyte Negative Leu/uL (Negative); Nitrite Negative (Negative); Protein, Urine (Dipstick) Negative (Neg-Trace); Urobilinogen Normal mg/dL (Less than 2)
[2020-10-24] MEDS ORDERED: Pregabalin 75 MG CAP PO SCH (10:45)
[2020-10-24] MEDS ORDERED: Iopamidol-370 76% 500 ML 1 ML ONE (14:39)
== END 2020-10-24 12:08 | disposition short-term general hospital (02) ==
LOC: ERS 02:06
DX: K56.609 Unspecified intestinal obstruction, unspecified as to partial versus complete obstruction (principal); I10 Essential (primary) hypertension; E11.40 Type 2 diabetes mellitus with diabetic neuropathy, unspecified; Z79.84 Long term (current) use of oral hypoglycemic drugs; Z79.899 Other long term (current) drug therapy
CPT/HCPCS: 36415; 71045; 74018; 74177; 80053; 81003; 83605; 83690; 84484; 85025; 87040; 87086; 93005; 96365; 96367; 96375; J0692; J2270; J2405; J2543; J3370; Q9967

== ENCOUNTER 2020-11-19 16:30 | Emergency (ER) | payer MEDICARE, OTHER, SELFPAY | END 2020-11-19 19:20 | disposition home or self-care (01) | LOC: ERS 16:30 | DX: K94.23 Gastrostomy malfunction (principal); Z79.84 Long term (current) use of oral hypoglycemic drugs; Z79.899 Other long term (current) drug therapy; I10 Essential (primary) hypertension; J45.909 Unspecified asthma, uncomplicated; E11.40 Type 2 diabetes mellitus with diabetic neuropathy, unspecified | CPT/HCPCS: 99282 ==

== ENCOUNTER 2020-11-29 18:48 | Emergency (ER) | payer MEDICARE, OTHER, SELFPAY ==
[~2020-11-29 18:48] MED LIST changes: -Iopamidol 300 61% 50 ML VIAL FS ONE; +MD-Gastroview 120 ML BOT ONE
[2020-11-29] MEDS ORDERED: Lidocaine 1% w/Epinephrine 1:100K 20 ML VIAL ONE (19:10)
[2020-11-29] MEDS ORDERED: Lidocaine 4% Cream 5 GM TUBE w/ Tegaderm ONE (19:15)
== END 2020-11-29 20:58 | disposition home or self-care (01) ==
LOC: ERS 18:48
DX: K94.23 Gastrostomy malfunction (principal); T18.2XXA Foreign body in stomach, initial encounter; E11.9 Type 2 diabetes mellitus without complications; I10 Essential (primary) hypertension; X58.XXXA Exposure to other specified factors, initial encounter
CPT/HCPCS: 43762; 74018; Q9963

== ENCOUNTER 2021-01-01 16:58 | Emergency (ER) | payer MEDICARE, OTHER ==
[~2021-01-01 16:58] MED LIST changes: +Iopamidol-370 76% 500 ML 1 ML ONE; -MD-Gastroview 120 ML BOT ONE
[2021-01-01 18:25] LABS: White Blood Cell (WBC) Count 6.5 thou/uL (4.8-10.8)
[2021-01-01 18:31] LABS: %Lymphocytes 35.2 % (21.0-51.0); Mean Corpuscular Volume 85.9 fL (78.0-98.0); Platelet Count 461 thou/uL (130-400); RBC Distribution Width 13.7 % (11.5-14.5)
[2021-01-01 18:36] LABS: #Basophils 0.1 thou/uL (0.0-0.2); #Lymphocytes 2.3 thou/uL (1.20-3.40); #Monocytes 0.5 thou/uL (0.11-0.59); #Neutrophils 3.6 thou/uL (1.40-6.50); %Eosinophils 0.6 % (0.0-10.0); %Monocytes 8.1 % (0.0-10.0); Hemoglobin 11.4 g/dL (12.0-16.0); Mean Corpuscular HGB CONC 33.6 g/dL (32.0-36.0); Mean Corpuscular Hemoglobin 28.9 pg (27.0-31.0); Red Blood Cell (RBC) Count 3.96 mill/uL (4.20-5.40)
[2021-01-01 18:40] LABS: ALT (SGPT) 28 U/L (8-55); AST (SGOT) 35 U/L (5-34); Albumin 3.8 g/dL (3.4-4.8); Alkaline Phosphatase 152 U/L (40-110); Anion Gap 14 mmol/L (10-20); BUN (Urea Nitrogen) 12 mg/dL (9.8-20.1); Bilirubin, Total 0.3 mg/dL (0.2-1.2); Calc. Creatinine Clearance 0 mL/min (70-130); Calcium 8.8 mg/dL (7.8-10.44); Carbon Dioxide 23 mmol/L (23-31); Chloride 102 mmol/L (98-107); Globulin 3.6 g/dL (2.4-3.5); Glucose 123 mg/dL (80-115); Lipase Less than 4 U/L (8-78); Potassium 3.1 mmol/L (3.5-5.1); Protein, Total 7.4 g/dL (5.8-8.1); Sodium 136 mmol/L (136-145)
[2021-01-01 20:00] LABS: Bilirubin Negative (Negative); Blood, Urine Negative (Negative); Clarity Turbid (Clear); Glucose, Urine (Dipstick) Normal (Negative); Ketone, Urine Trace mg/dL (Negative); Leukocyte 500 Leu/uL (Negative); Nitrite Negative (Negative); Protein, Urine (Dipstick) 70 mg/dL (Neg-Trace); Specific Gravity, Urine 1.019 (1.002-1.036); Squamous Epithelial 0-3 HPF (0-3); WBC/HPF Greater than 50 HPF (0-3)
[2021-01-01 20:01] LABS: Bacteria/HPF 1+ HPF (None Seen)
[2021-01-01] MEDS ORDERED: Acetaminophen 500 MG TAB ONE (20:01)
[2021-01-01] MEDS ORDERED: Ondansetron PF 4 MG/2 ML Vial ONE (20:46)
[2021-01-01] MEDS ORDERED: cefTRIAXone\\ROCEPHIN 1 GM VIAL ONE (21:14)
[2021-01-01] MEDS ORDERED: Potassium Chloride 20 MEQ TAB ONE (23:24)
== END 2021-01-02 00:34 | disposition home or self-care (01) ==
LOC: ERS 16:58
DX: N39.0 Urinary tract infection, site not specified (principal); K86.89 Other specified diseases of pancreas; R63.4 Abnormal weight loss; M19.90 Unspecified osteoarthritis, unspecified site; I10 Essential (primary) hypertension; J45.909 Unspecified asthma, uncomplicated; M81.0 Age-related osteoporosis without current pathological fracture; E11.40 Type 2 diabetes mellitus with diabetic neuropathy, unspecified; Z79.84 Long term (current) use of oral hypoglycemic drugs; Z79.899 Other long term (current) drug therapy
CPT/HCPCS: 36415; 74177; 80053; 81003; 81015; 83690; 85025; 87077; 87086; 87186; 96365; 96375; J0696; J2405; Q9967

== ENCOUNTER 2021-01-08 23:19 | Inpatient (IN) | payer MEDICARE ==
[2021-01-08] MEDS ORDERED: hydrALAZINE 20 MG/ML VIAL ONE (23:32)
[2021-01-08 23:45] LABS: #Lymphocytes 1.6 thou/uL (1.20-3.40); #Monocytes 0.6 thou/uL (0.11-0.59); #Neutrophils 6.5 thou/uL (1.40-6.50); %Basophils 0.6 % (0.0-1.0); %Eosinophils 0.2 % (0.0-10.0); %Lymphocytes 18.4 % (21.0-51.0); %Monocytes 6.4 % (0.0-10.0); %Neutrophils 74.5 % (42.0-75.0); Hemoglobin 11.3 g/dL (12.0-16.0); Mean Corpuscular HGB CONC 32.8 g/dL (32.0-36.0); Mean Corpuscular Hemoglobin 28.6 pg (27.0-31.0); Mean Platelet Volume 7.6 fL (7.4-10.4); Platelet Count 492 thou/uL (130-400); RBC Distribution Width 13.8 % (11.5-14.5); Red Blood Cell (RBC) Count 3.96 mill/uL (4.20-5.40); White Blood Cell (WBC) Count 8.7 thou/uL (4.8-10.8)
[2021-01-09 00:06] LABS: ALT (SGPT) 19 U/L (8-55); AST (SGOT) 26 U/L (5-34); Albumin 4.1 g/dL (3.4-4.8); Alkaline Phosphatase 146 U/L (40-110); Anion Gap 16 mmol/L (10-20); BUN (Urea Nitrogen) 8 mg/dL (9.8-20.1); Bilirubin, Total 0.3 mg/dL (0.2-1.2); Calc. Creatinine Clearance 0 mL/min (70-130); Calcium 9.2 mg/dL (7.8-10.44); Carbon Dioxide 23 mmol/L (23-31); Chloride 93 mmol/L (98-107); Globulin 3.2 g/dL (2.4-3.5); Glucose 145 mg/dL (80-115); Lipase Less than 4 U/L (8-78); Potassium 4.4 mmol/L (3.5-5.1); Protein, Total 7.3 g/dL (5.8-8.1); Sodium 128 mmol/L (136-145)
[2021-01-09 00:35] LABS: Bacteria/HPF None Seen HPF (None Seen); Bilirubin Negative (Negative); Blood, Urine 1+ (Negative); Clarity Turbid (Clear); Glucose, Urine (Dipstick) Normal (Negative); Ketone, Urine Negative (Negative); Leukocyte Negative Leu/uL (Negative); Nitrite Negative (Negative); Protein, Urine (Dipstick) 20 mg/dL (Neg-Trace); RBC/HPF 21-50 HPF (0-3); Specific Gravity, Urine 1.016 (1.002-1.036); Squamous Epithelial 0-3 HPF (0-3); Urobilinogen Normal mg/dL (Less than 2); pH, Urine 7.5 (5.0-9.0)
[2021-01-09] MEDS ORDERED: Ketorolac Tromethamine 30 MG/ML VIAL IVP PRN (02:30)
[2021-01-09] MEDS: Ondansetron PF 4 MG/2 ML Vial IVP PRN ×2 (02:54→12:27)
[2021-01-09] MEDS: Morphine 2 MG/ML VIAL SLOW IVP PRN ×2 (05:32→10:30)
[2021-01-09] MEDS: Sodium Chloride 0.9% 1,000 ML IV SCH ×3 (05:36→16:12)
[2021-01-09] MEDS ORDERED: hydrALAZINE 20 MG/ML VIAL SLOW IVP PRN (08:02)
[2021-01-09] MEDS ORDERED: traMADol HCl 50 MG TAB PO PRN (08:45)
[2021-01-09] MEDS ORDERED: cloNIDine 0.1 MG TAB PO SCH (09:00)
[2021-01-09] MEDS ORDERED: Dextrose 5% in Water 1,000 ML IV PRN (09:13)
[2021-01-09] MEDS ORDERED: HumaLOG 300 UNITS/3 ML VIAL SC PRN ×2 (09:13)
[2021-01-09] MEDS ORDERED: Dextrose 50% Abboject 50 ML SYRINGE SLOW IVP PRN (09:13)
[2021-01-09] MEDS: Pregabalin 75 MG CAP PO SCH ×3 (09:39→20:59)
[2021-01-09] MEDS: metFORMIN 500 MG TAB PO SCH ×2 (09:41→21:00)
[2021-01-09] MEDS: Amlodipine 10 MG TAB PO SCH (09:42)
[2021-01-09 11:49] LABS: SARS-CoV-2 PCR by NAA Not Detected (NotDetected)
[2021-01-09] MEDS ORDERED: Magnesium 2 GM/50 ML 2 GM in Premix Bag 1 BAG IVPB SCH (13:45)
[2021-01-09] MEDS: rOPINIRole HCl 0.5 MG TAB PO SCH (16:11)
[2021-01-09] MEDS: cloNIDine 0.1 MG TAB PO SCH (21:00)
[2021-01-10 05:38] LABS: #Lymphocytes 1.8 thou/uL (1.20-3.40); #Monocytes 0.5 thou/uL (0.11-0.59); #Neutrophils 3.9 thou/uL (1.40-6.50); %Basophils 0.1 % (0.0-1.0); %Eosinophils 0.6 % (0.0-10.0); %Lymphocytes 29.3 % (21.0-51.0); %Monocytes 7.3 % (0.0-10.0); %Neutrophils 62.7 % (42.0-75.0); Hemoglobin 9.6 g/dL (12.0-16.0); Mean Corpuscular HGB CONC 32.5 g/dL (32.0-36.0); Mean Corpuscular Hemoglobin 28.3 pg (27.0-31.0); Mean Corpuscular Volume 87.1 fL (78.0-98.0); Mean Platelet Volume 7.3 fL (7.4-10.4); Platelet Count 420 thou/uL (130-400); RBC Distribution Width 14.2 % (11.5-14.5); Red Blood Cell (RBC) Count 3.41 mill/uL (4.20-5.40); White Blood Cell (WBC) Count 6.3 thou/uL (4.8-10.8)
[2021-01-10 05:54] LABS: Anion Gap 10 mmol/L (10-20); BUN (Urea Nitrogen) 10 mg/dL (9.8-20.1); Calc. Creatinine Clearance 45 mL/min (70-130); Calcium 8.3 mg/dL (7.8-10.44); Carbon Dioxide 24 mmol/L (23-31); Chloride 103 mmol/L (98-107); Glucose 85 mg/dL (80-115); Magnesium 2.3 mg/dL (1.6-2.6); Potassium 3.6 mmol/L (3.5-5.1); Sodium 133 mmol/L (136-145)
[2021-01-10] MEDS: Sodium Chloride 0.9% 1,000 ML IV SCH ×3 (07:04→20:45)
[2021-01-10] MEDS: Pregabalin 75 MG CAP PO SCH ×3 (08:24→20:39)
[2021-01-10] MEDS: metFORMIN 500 MG TAB PO SCH ×2 (08:24→20:39)
[2021-01-10] MEDS: cloNIDine 0.1 MG TAB PO SCH ×3 (08:25→20:39)
[2021-01-10] MEDS: Amlodipine 10 MG TAB PO SCH ×2 (08:25→11:36)
[2021-01-10 13:25] VITALS: BMI 19.6
[2021-01-10] MEDS: rOPINIRole HCl 0.5 MG TAB PO SCH (15:22)
[2021-01-10] MEDS: Diphenoxylate HCl/Atropine Tablet PO PRN (18:04)
[2021-01-11] MEDS: Diphenoxylate HCl/Atropine Tablet PO PRN ×2 (00:17→08:43)
[2021-01-11 05:30] LABS: #Basophils 0.1 thou/uL (0.0-0.2); #Eosinphils 0.1 thou/uL (0.0-0.7); #Monocytes 0.5 thou/uL (0.11-0.59); #Neutrophils 4.7 thou/uL (1.40-6.50); %Basophils 0.8 % (0.0-1.0); %Eosinophils 0.7 % (0.0-10.0); %Lymphocytes 27.4 % (21.0-51.0); %Neutrophils 64.1 % (42.0-75.0); Hemoglobin 9.8 g/dL (12.0-16.0); Mean Corpuscular HGB CONC 33.3 g/dL (32.0-36.0); Mean Corpuscular Hemoglobin 29.5 pg (27.0-31.0); Mean Corpuscular Volume 88.6 fL (78.0-98.0); Mean Platelet Volume 7.2 fL (7.4-10.4); Platelet Count 409 thou/uL (130-400); RBC Distribution Width 14.2 % (11.5-14.5); Red Blood Cell (RBC) Count 3.32 mill/uL (4.20-5.40); White Blood Cell (WBC) Count 7.4 thou/uL (4.8-10.8)
[2021-01-11 05:41] LABS: PTT 33.1 sec (22.9-36.1); Prothrombin Time 13.6 sec (12.0-14.7)
[2021-01-11 05:53] LABS: ALT (SGPT) 13 U/L (8-55); AST (SGOT) 16 U/L (5-34); Alkaline Phosphatase 116 U/L (40-110); Anion Gap 9 mmol/L (10-20); BUN (Urea Nitrogen) 6 mg/dL (9.8-20.1); Bilirubin, Total 0.2 mg/dL (0.2-1.2); Calc. Creatinine Clearance 58 mL/min (70-130); Calcium 8.1 mg/dL (7.8-10.44); Carbon Dioxide 18 mmol/L (23-31); Chloride 112 mmol/L (98-107); Globulin 2.6 g/dL (2.4-3.5); Glucose 93 mg/dL (80-115); Lipase Less than 4 U/L (8-78); Potassium 3.3 mmol/L (3.5-5.1); Protein, Total 5.6 g/dL (5.8-8.1); Sodium 136 mmol/L (136-145)
[2021-01-11] MEDS: metFORMIN 500 MG TAB PO SCH ×2 (08:38→20:49)
[2021-01-11] MEDS: cloNIDine 0.1 MG TAB PO SCH ×2 (08:38→20:49)
[2021-01-11] MEDS: Pregabalin 75 MG CAP PO SCH ×3 (08:38→20:49)
[2021-01-11] MEDS: Amlodipine 10 MG TAB PO SCH (08:38)
[2021-01-11] MEDS: Sodium Chloride 0.9% 1,000 ML IV SCH ×2 (13:28→22:03)
[2021-01-11] MEDS ORDERED: Potassium Chloride 20 MEQ TAB PO SCH (14:00)
[2021-01-11] MEDS: Loperamide HCl 2 MG CAP PO SCH ×2 (15:27→21:47)
[2021-01-11] MEDS: rOPINIRole HCl 0.5 MG TAB PO SCH (17:00)
[2021-01-11] MEDS: Cholestyramine/Aspartame 4 gm Packet PO SCH (21:45)
[2021-01-12] MEDS: Morphine 2 MG/ML VIAL SLOW IVP PRN (00:15)
[2021-01-12] MEDS: Loperamide HCl 2 MG CAP PO SCH ×2 (05:01→14:31)
[2021-01-12 08:23] VITALS: TEMP 98
[2021-01-12] MEDS: Pregabalin 75 MG CAP PO SCH ×2 (08:23→14:31)
[2021-01-12] MEDS: Amlodipine 10 MG TAB PO SCH (08:23)
[2021-01-12] MEDS: metFORMIN 500 MG TAB PO SCH (08:23)
[2021-01-12] MEDS: cloNIDine 0.1 MG TAB PO SCH (08:23)
[2021-01-12] MEDS: Cholestyramine/Aspartame 4 gm Packet PO SCH (11:13)
[2021-01-12 12:27] VITALS: BP 147/85
[2021-01-12] MEDS: Sodium Chloride 0.9% 1,000 ML IV SCH (14:17)
== END 2021-01-12 14:46 | disposition home or self-care (01) | DRG 392 ==
LOC: ERS 23:19 → T4-B 01-09 01:11
PROVIDERS: ADMIT Internal Medicine; ATTEND Hospitalist
DX: A08.4 Viral intestinal infection, unspecified (principal); E87.1 Hypo-osmolality and hyponatremia; E44.0 Moderate protein-calorie malnutrition; Z20.822 Contact with and (suspected) exposure to COVID-19; K27.9 Peptic ulcer, site unspecified, unspecified as acute or chronic, without hemorrhage or perforation; M19.90 Unspecified osteoarthritis, unspecified site; I10 Essential (primary) hypertension; M81.0 Age-related osteoporosis without current pathological fracture; K21.9 Gastro-esophageal reflux disease without esophagitis; E11.40 Type 2 diabetes mellitus with diabetic neuropathy, unspecified; G25.81 Restless legs syndrome; D53.9 Nutritional anemia, unspecified; E87.6 Hypokalemia; Z88.5 Allergy status to narcotic agent; Z88.1 Allergy status to other antibiotic agents; Z79.84 Long term (current) use of oral hypoglycemic drugs; Z79.899 Other long term (current) drug therapy; Z90.49 Acquired absence of other specified parts of digestive tract; Z90.710 Acquired absence of both cervix and uterus; Z68.20 Body mass index [BMI] 20.0-20.9, adult; Z79.51 Long term (current) use of inhaled steroids; Z87.19 Personal history of other diseases of the digestive system
CPT/HCPCS: 36415; 36416; 51701; 80048; 80053; 81003; 81015; 83690; 83735; 84484; 85025; 85610; 85730; 87324; 87449; 93005; 96361; 96374; J0360; J1885; J2270; J2405; J3475; U0003; U0005

== ENCOUNTER 2021-02-03 11:15 | Inpatient (IN) | payer MEDICARE ==
[2021-02-03 13:00] LABS: #Lymphocytes 1.2 thou/uL (1.20-3.40); #Monocytes 0.4 thou/uL (0.11-0.59); #Neutrophils 6.4 thou/uL (1.40-6.50); %Basophils 0.4 % (0.0-1.0); %Lymphocytes 15.1 % (21.0-51.0); %Monocytes 4.4 % (0.0-10.0); %Neutrophils 80.1 % (42.0-75.0); Hemoglobin 9.8 g/dL (12.0-16.0); Mean Corpuscular HGB CONC 32.1 g/dL (32.0-36.0); Mean Corpuscular Hemoglobin 27.8 pg (27.0-31.0); Mean Corpuscular Volume 86.7 fL (78.0-98.0); Mean Platelet Volume 7.1 fL (7.4-10.4); Platelet Count 401 thou/uL (130-400); RBC Distribution Width 14.7 % (11.5-14.5); Red Blood Cell (RBC) Count 3.52 mill/uL (4.20-5.40)
[2021-02-03 13:23] LABS: ALT (SGPT) 26 U/L (8-55); AST (SGOT) 85 U/L (5-34); Albumin 2.8 g/dL (3.4-4.8); Alkaline Phosphatase 92 U/L (40-110); Anion Gap 14 mmol/L (10-20); BUN (Urea Nitrogen) 15 mg/dL (9.8-20.1); Bilirubin, Total 0.4 mg/dL (0.2-1.2); Calc. Creatinine Clearance 0 mL/min (70-130); Calcium 6.8 mg/dL (7.8-10.44); Carbon Dioxide 14 mmol/L (23-31); Chloride 109 mmol/L (98-107); Globulin 2.6 g/dL (2.4-3.5); Glucose 106 mg/dL (80-115); Lipase 7 U/L (8-78); Protein, Total 5.4 g/dL (5.8-8.1); Sodium 134 mmol/L (136-145)
[2021-02-03 13:28] LABS: Potassium 2.8 mmol/L (3.5-5.1)
[2021-02-03] MEDS ORDERED: Acetaminophen 325 MG TAB PO PRN (15:12)
[2021-02-03] MEDS ORDERED: Ondansetron PF 4 MG/2 ML Vial IVP PRN (15:12)
[2021-02-03] MEDS ORDERED: Dextrose 5% in Water 1,000 ML IV PRN (15:59)
[2021-02-03] MEDS ORDERED: Dextrose 50% Abboject 50 ML SYRINGE SLOW IVP PRN (15:59)
[2021-02-03] MEDS ORDERED: Magnesium 2 GM/50 ML 2 GM in Premix Bag 1 BAG IVPB SCH (18:00)
[2021-02-03] MEDS ORDERED: Potassium Chloride 20 MEQ TAB PO SCH (18:00)
[2021-02-03] MEDS: Sodium Chloride 0.9% 1,000 ML IV SCH (18:32)
[2021-02-03] MEDS: Pregabalin 75 MG CAP PO SCH (21:50)
[2021-02-03] MEDS: Cholestyramine/Aspartame 4 gm Packet PO SCH (21:51)
[2021-02-03] MEDS: rOPINIRole HCl 1 MG TAB PO SCH (21:51)
[2021-02-03 23:04] LABS: SARS-CoV-2 NAA Rapid Test Not Detected (NotDetected)
[2021-02-04] MEDS: traMADol HCl 50 MG TAB PO PRN ×2 (04:05→19:06)
[2021-02-04 04:59] LABS: #Lymphocytes 1.4 thou/uL (1.20-3.40); #Monocytes 0.3 thou/uL (0.11-0.59); #Neutrophils 5.2 thou/uL (1.40-6.50); %Basophils 0.4 % (0.0-1.0); %Eosinophils 0.3 % (0.0-10.0); %Lymphocytes 19.7 % (21.0-51.0); %Monocytes 4.1 % (0.0-10.0); %Neutrophils 75.5 % (42.0-75.0); Hemoglobin 9.6 g/dL (12.0-16.0); Mean Corpuscular HGB CONC 33.6 g/dL (32.0-36.0); Mean Corpuscular Hemoglobin 28.7 pg (27.0-31.0); Mean Corpuscular Volume 85.5 fL (78.0-98.0); Mean Platelet Volume 7.5 fL (7.4-10.4); Platelet Count 425 thou/uL (130-400); RBC Distribution Width 15.1 % (11.5-14.5); Red Blood Cell (RBC) Count 3.34 mill/uL (4.20-5.40); White Blood Cell (WBC) Count 6.9 thou/uL (4.8-10.8)
[2021-02-04 05:18] LABS: Anion Gap 14 mmol/L (10-20); BUN (Urea Nitrogen) 16 mg/dL (9.8-20.1); Calc. Creatinine Clearance 38 mL/min (70-130); Calcium 7.5 mg/dL (7.8-10.44); Carbon Dioxide 13 mmol/L (23-31); Chloride 111 mmol/L (98-107); Glucose 143 mg/dL (80-115); Magnesium 1.8 mg/dL (1.6-2.6); Potassium 3.4 mmol/L (3.5-5.1); Sodium 135 mmol/L (136-145)
[2021-02-04] MEDS: Sodium Chloride 0.9% 1,000 ML IV SCH (05:49)
[2021-02-04] MEDS: Enoxaparin Sodium 40 MG/0.4 ML SYRINGE SC SCH (08:47)
[2021-02-04] MEDS: Gabapentin 100 MG CAP PO SCH ×2 (08:47→21:45)
[2021-02-04] MEDS: Potassium Chloride 20 MEQ TAB PO SCH (08:48)
[2021-02-04] MEDS: Pregabalin 75 MG CAP PO SCH ×3 (08:48→21:45)
[2021-02-04] MEDS ORDERED: Potassium Chloride 20 MEQ TAB PO SCH (09:30)
[2021-02-04] MEDS ORDERED: Magnesium 2 GM/50 ML 2 GM in Premix Bag 1 BAG IVPB SCH (09:30)
[2021-02-04] MEDS: Cholestyramine/Aspartame 4 gm Packet PO SCH ×2 (09:39→21:46)
[2021-02-04] MEDS: HumaLOG 300 UNITS/3 ML VIAL SC PRN (11:52)
[2021-02-04 15:55] LABS: #Lymphocytes 1.6 thou/uL (1.20-3.40); #Monocytes 0.5 thou/uL (0.11-0.59); #Neutrophils 4.1 thou/uL (1.40-6.50); %Basophils 0.5 % (0.0-1.0); %Eosinophils 0.3 % (0.0-10.0); %Lymphocytes 25.4 % (21.0-51.0); %Monocytes 7.3 % (0.0-10.0); %Neutrophils 66.5 % (42.0-75.0); Hemoglobin 10.1 g/dL (12.0-16.0); Mean Corpuscular HGB CONC 34.2 g/dL (32.0-36.0); Mean Corpuscular Hemoglobin 29.2 pg (27.0-31.0); Mean Corpuscular Volume 85.5 fL (78.0-98.0); Mean Platelet Volume 7.5 fL (7.4-10.4); Platelet Count 417 thou/uL (130-400); RBC Distribution Width 14.8 % (11.5-14.5); Red Blood Cell (RBC) Count 3.47 mill/uL (4.20-5.40); White Blood Cell (WBC) Count 6.1 thou/uL (4.8-10.8)
[2021-02-04] MEDS: rOPINIRole HCl 1 MG TAB PO SCH (21:45)
[2021-02-05] MEDS ORDERED: hydrALAZINE 20 MG/ML VIAL SLOW IVP PRN ×2 (04:04→15:49)
[2021-02-05] MEDS: traMADol HCl 50 MG TAB PO PRN (04:08)
[2021-02-05 05:08] LABS: Anion Gap 10 mmol/L (10-20); BUN (Urea Nitrogen) 8 mg/dL (9.8-20.1); Calc. Creatinine Clearance 48 mL/min (70-130); Calcium 7.8 mg/dL (7.8-10.44); Carbon Dioxide 19 mmol/L (23-31); Chloride 107 mmol/L (98-107); Glucose 166 mg/dL (80-115); Magnesium 1.6 mg/dL (1.6-2.6); Sodium 133 mmol/L (136-145)
[2021-02-05] MEDS ORDERED: Potassium Chloride 20 MEQ TAB PO SCH ×2 (08:00→17:00)
[2021-02-05] MEDS: Potassium Chloride 20 MEQ TAB PO SCH ×2 (08:17→16:14)
[2021-02-05] MEDS: Gabapentin 100 MG CAP PO SCH ×2 (08:17→20:03)
[2021-02-05] MEDS: Enoxaparin Sodium 40 MG/0.4 ML SYRINGE SC SCH (08:18)
[2021-02-05] MEDS: Pregabalin 75 MG CAP PO SCH ×3 (08:18→20:04)
[2021-02-05] MEDS ORDERED: Amlodipine 10 MG TAB PO SCH (09:00)
[2021-02-05] MEDS ORDERED: Magnesium 2 GM/50 ML 2 GM in Premix Bag 1 BAG IVPB SCH (09:45)
[2021-02-05] MEDS: Cholestyramine/Aspartame 4 gm Packet PO SCH ×3 (10:26→21:30)
[2021-02-05] MEDS: HumaLOG 300 UNITS/3 ML VIAL SC PRN (12:31)
[2021-02-05] MEDS ORDERED: Acetaminophen 325 MG TAB PO PRN (15:47)
[2021-02-05] MEDS ORDERED: Ondansetron PF 4 MG/2 ML Vial IVP PRN (15:47)
[2021-02-05] MEDS ORDERED: Dextrose 50% Abboject 50 ML SYRINGE SLOW IVP PRN (15:48)
[2021-02-05] MEDS ORDERED: Dextrose 5% in Water 1,000 ML IV PRN (15:48)
[2021-02-05] MEDS ORDERED: HumaLOG 300 UNITS/3 ML VIAL SC PRN (15:49)
[2021-02-05] MEDS ORDERED: traMADol HCl 50 MG TAB PO PRN (15:49)
[2021-02-05 17:18] LABS: #Lymphocytes 1.2 thou/uL (1.20-3.40); #Monocytes 0.5 thou/uL (0.11-0.59); %Basophils 0.5 % (0.0-1.0); %Eosinophils 0.6 % (0.0-10.0); %Monocytes 8.9 % (0.0-10.0); Hemoglobin 9.9 g/dL (12.0-16.0); Mean Corpuscular HGB CONC 34.6 g/dL (32.0-36.0); Mean Corpuscular Hemoglobin 29.2 pg (27.0-31.0); Mean Corpuscular Volume 84.5 fL (78.0-98.0); Mean Platelet Volume 7.6 fL (7.4-10.4); Platelet Count 413 thou/uL (130-400); RBC Distribution Width 15.1 % (11.5-14.5); Red Blood Cell (RBC) Count 3.38 mill/uL (4.20-5.40); White Blood Cell (WBC) Count 5.8 thou/uL (4.8-10.8)
[2021-02-05] MEDS: rOPINIRole HCl 1 MG TAB PO SCH (20:03)
[2021-02-05] MEDS: diphenhydrAMINE 25 MG CAP PO PRN (22:00)
[2021-02-06] MEDS: diphenhydrAMINE 25 MG CAP PO PRN ×4 (03:36→23:37)
[2021-02-06 05:11] LABS: Anion Gap 13 mmol/L (10-20); BUN (Urea Nitrogen) 8 mg/dL (9.8-20.1); Calc. Creatinine Clearance 53 mL/min (70-130); Carbon Dioxide 20 mmol/L (23-31); Chloride 104 mmol/L (98-107); Glucose 106 mg/dL (80-115); Potassium 3.2 mmol/L (3.5-5.1); Sodium 134 mmol/L (136-145)
[2021-02-06] MEDS: Potassium Chloride 20 MEQ TAB PO SCH ×2 (08:25→09:31)
[2021-02-06] MEDS ORDERED: Losartan 25 MG TAB PO SCH (09:00)
[2021-02-06] MEDS: Amlodipine 10 MG TAB PO SCH (09:32)
[2021-02-06] MEDS: Losartan 25 MG TAB PO SCH (09:32)
[2021-02-06] MEDS: Gabapentin 100 MG CAP PO SCH ×2 (09:32→20:58)
[2021-02-06] MEDS: Enoxaparin Sodium 40 MG/0.4 ML SYRINGE SC SCH (09:33)
[2021-02-06] MEDS: Pregabalin 75 MG CAP PO SCH ×3 (09:33→20:59)
[2021-02-06] MEDS: Cholestyramine/Aspartame 4 gm Packet PO SCH ×2 (09:34→21:00)
[2021-02-06] MEDS ORDERED: Potassium Chloride 20 MEQ TAB PO SCH (10:00)
[2021-02-06] MEDS ORDERED: Magnesium 2 GM/50 ML 2 GM in Premix Bag 1 BAG IVPB SCH (10:00)
[2021-02-06] MEDS ORDERED: Loratadine 10 MG TAB PO PRN (14:16)
[2021-02-06] MEDS ORDERED: traZODone HCl 50 MG TAB PO SCH (20:45)
[2021-02-06] MEDS: rOPINIRole HCl 1 MG TAB PO SCH (20:58)
[2021-02-07 05:27] LABS: Anion Gap 12 mmol/L (10-20); BUN (Urea Nitrogen) 14 mg/dL (9.8-20.1); Calc. Creatinine Clearance 51 mL/min (70-130); Calcium 8.4 mg/dL (7.8-10.44); Carbon Dioxide 19 mmol/L (23-31); Chloride 110 mmol/L (98-107); Glucose 109 mg/dL (80-115); Potassium 4.1 mmol/L (3.5-5.1); Sodium 137 mmol/L (136-145)
[2021-02-07] MEDS: Enoxaparin Sodium 40 MG/0.4 ML SYRINGE SC SCH (09:34)
[2021-02-07] MEDS: Potassium Chloride 20 MEQ TAB PO SCH (09:34)
[2021-02-07] MEDS: Gabapentin 100 MG CAP PO SCH (09:35)
[2021-02-07] MEDS: Amlodipine 10 MG TAB PO SCH (09:35)
[2021-02-07] MEDS: Pregabalin 75 MG CAP PO SCH (09:39)
[2021-02-07] MEDS: Losartan 25 MG TAB PO SCH (09:39)
[2021-02-07] MEDS: Cholestyramine/Aspartame 4 gm Packet PO SCH (09:40)
[2021-02-07] MEDS: diphenhydrAMINE 25 MG CAP PO PRN (09:40)
[2021-02-07 12:19] VITALS: BP 144/80; TEMP 98.3
== END 2021-02-07 12:25 | disposition home or self-care (01) | DRG 640 ==
LOC: ERS 11:15 → 2NO 15:12 → OBSVTOIN 02-05 09:47 → UNDODISIN 02-05 14:24
PROVIDERS: ADMIT Internal Medicine; ATTEND Internal Medicine
DX: E87.6 Hypokalemia (principal); E43 Unspecified severe protein-calorie malnutrition; Z20.822 Contact with and (suspected) exposure to COVID-19; E11.9 Type 2 diabetes mellitus without complications; E86.1 Hypovolemia; E86.0 Dehydration; D63.8 Anemia in other chronic diseases classified elsewhere; G25.81 Restless legs syndrome; Z68.20 Body mass index [BMI] 20.0-20.9, adult; Z87.11 Personal history of peptic ulcer disease; Z88.1 Allergy status to other antibiotic agents; Z88.5 Allergy status to narcotic agent; Z79.899 Other long term (current) drug therapy; Z79.84 Long term (current) use of oral hypoglycemic drugs; Z90.49 Acquired absence of other specified parts of digestive tract; Z90.710 Acquired absence of both cervix and uterus
CPT/HCPCS: 36415; 36416; 71045; 80048; 80053; 83690; 83735; 85025; 93005; J0360; J1650; J1815; J3475; Q0163; U0002; U0005

== ENCOUNTER 2021-04-27 03:41 | Emergency (ER) | payer MEDICARE ==
[2021-04-27 04:59] LABS: #Lymphocytes 0.9 thou/uL (1.20-3.40); #Monocytes 0.5 thou/uL (0.11-0.59); #Neutrophils 5.8 thou/uL (1.40-6.50); %Basophils 0.1 % (0.0-1.0); %Eosinophils 0.2 % (0.0-10.0); %Lymphocytes 12.9 % (21.0-51.0); %Monocytes 6.4 % (0.0-10.0); %Neutrophils 80.5 % (42.0-75.0); Hemoglobin 11.6 g/dL (12.0-16.0); Mean Corpuscular HGB CONC 34.6 g/dL (32.0-36.0); Mean Corpuscular Hemoglobin 30.5 pg (27.0-31.0); Mean Corpuscular Volume 88.2 fL (78.0-98.0); Mean Platelet Volume 8.6 fL (7.4-10.4); Platelet Count 468 thou/uL (130-400); RBC Distribution Width 13.3 % (11.5-14.5); Red Blood Cell (RBC) Count 3.81 mill/uL (4.20-5.40); White Blood Cell (WBC) Count 7.3 thou/uL (4.8-10.8)
[2021-04-27 05:19] LABS: ALT (SGPT) 23 U/L (8-55); AST (SGOT) 46 U/L (5-34); Albumin 3.6 g/dL (3.4-4.8); Alkaline Phosphatase 212 U/L (40-110); Anion Gap 18 mmol/L (10-20); BUN (Urea Nitrogen) 10 mg/dL (9.8-20.1); Bilirubin, Total 0.6 mg/dL (0.2-1.2); CK (CPK) 51 U/L (29-168); Calc. Creatinine Clearance 0 mL/min (70-130); Calcium 8.1 mg/dL (7.8-10.44); Carbon Dioxide 21 mmol/L (23-31); Chloride 99 mmol/L (98-107); Globulin 3.5 g/dL (2.4-3.5); Glucose 150 mg/dL (80-115); Lipase 19 U/L (8-78); Potassium 3.3 mmol/L (3.5-5.1); Protein, Total 7.1 g/dL (5.8-8.1); Sodium 135 mmol/L (136-145)
[2021-04-27] MEDS ORDERED: Ondansetron PF 4 MG/2 ML Vial ONE (05:37)
[2021-04-27] MEDS ORDERED: traMADol HCl 50 MG TAB ONE (05:56)
[2021-04-27] MEDS ORDERED: Potassium Chloride 20 MEQ TAB ONE (05:56)
[2021-04-27 06:29] LABS: Bacteria/HPF 4+ HPF (None Seen); Bilirubin Negative (Negative); Blood, Urine Negative (Negative); Clarity Turbid (Clear); Glucose, Urine (Dipstick) Normal (Negative); Ketone, Urine 60 mg/dL (Negative); Leukocyte 75 Leu/uL (Negative); Nitrite Negative (Negative); Protein, Urine (Dipstick) 30 mg/dL (Neg-Trace); RBC/HPF 0-3 HPF (0-3); Squamous Epithelial 0-3 HPF (0-3); Urobilinogen Normal mg/dL (Less than 2); WBC/HPF 21-50 HPF (0-3); pH, Urine 6.5 (5.0-9.0)
== END 2021-04-27 07:00 | disposition home or self-care (01) ==
LOC: ERS 03:41
DX: N39.0 Urinary tract infection, site not specified (principal); R53.1 Weakness; D64.9 Anemia, unspecified; K27.9 Peptic ulcer, site unspecified, unspecified as acute or chronic, without hemorrhage or perforation; M19.90 Unspecified osteoarthritis, unspecified site; M81.0 Age-related osteoporosis without current pathological fracture; J45.909 Unspecified asthma, uncomplicated; E11.40 Type 2 diabetes mellitus with diabetic neuropathy, unspecified; Z79.84 Long term (current) use of oral hypoglycemic drugs; Z79.899 Other long term (current) drug therapy
CPT/HCPCS: 36415; 71045; 80053; 81003; 81015; 82550; 83690; 84484; 85025; 93005; 96374; J2405

== ENCOUNTER 2021-05-09 14:06 | Observation (INO) | payer MEDICARE ==
[2021-05-09] MEDS ORDERED: Aspirin Chewable 81 MG TAB ONE ×2 (14:53→14:54)
[2021-05-09] MEDS ORDERED: Ondansetron ODT 4 MG TAB ONE (14:53)
[2021-05-09 15:32] LABS: #Lymphocytes 1.2 thou/uL (1.20-3.40); #Monocytes 0.3 thou/uL (0.11-0.59); #Neutrophils 5.1 thou/uL (1.40-6.50); %Basophils 0.2 % (0.0-1.0); %Eosinophils 0.1 % (0.0-10.0); %Lymphocytes 17.8 % (21.0-51.0); %Monocytes 4.3 % (0.0-10.0); %Neutrophils 77.6 % (42.0-75.0); Mean Corpuscular HGB CONC 33.8 g/dL (32.0-36.0); Mean Corpuscular Hemoglobin 30.8 pg (27.0-31.0); Mean Platelet Volume 8.1 fL (7.4-10.4); Platelet Count 479 thou/uL (130-400); White Blood Cell (WBC) Count 6.6 thou/uL (4.8-10.8)
[2021-05-09 15:53] LABS: ALT (SGPT) 27 U/L (8-55); AST (SGOT) 44 U/L (5-34); Albumin 3.7 g/dL (3.4-4.8); Alkaline Phosphatase 250 U/L (40-110); Anion Gap 14 mmol/L (10-20); BUN (Urea Nitrogen) 15 mg/dL (9.8-20.1); Bilirubin, Total 0.7 mg/dL (0.2-1.2); Calc. Creatinine Clearance 0 mL/min (70-130); Calcium 9.2 mg/dL (7.8-10.44); Carbon Dioxide 23 mmol/L (23-31); Chloride 97 mmol/L (98-107); Globulin 3.8 g/dL (2.4-3.5); Glucose 128 mg/dL (80-115); Potassium 4.6 mmol/L (3.5-5.1); Protein, Total 7.5 g/dL (5.8-8.1); Sodium 129 mmol/L (136-145)
[2021-05-09] MEDS ORDERED: Enoxaparin Sodium 40 MG/0.4 ML SYRINGE ONE (17:42)
[2021-05-09 18:24] LABS: SARS-CoV-2 NAA Rapid Test Not Detected (NotDetected)
[2021-05-09] MEDS ORDERED: Guaifenesin DM 100-10/5 ML UDCUP PO PRN (19:39)
[2021-05-09] MEDS ORDERED: Senokot S 8.6-50 MG TAB PO PRN (19:39)
[2021-05-09] MEDS ORDERED: Ondansetron PF 4 MG/2 ML Vial IVP PRN (19:39)
[2021-05-09] MEDS ORDERED: Enoxaparin Sodium 40 MG/0.4 ML SYRINGE SC SCH (19:45)
[2021-05-09] MEDS ORDERED: Nitroglycerin 0.4 MG TAB (25 Tab Bottle) SL PRN (19:45)
[2021-05-09] MEDS ORDERED: Melatonin 3 MG TAB PO PRN (19:45)
[2021-05-09] MEDS ORDERED: hydrALAZINE 20 MG/ML VIAL SLOW IVP PRN (19:45)
[2021-05-09] MEDS ORDERED: Dextrose 50% Abboject 50 ML SYRINGE SLOW IVP PRN (19:49)
[2021-05-09] MEDS ORDERED: Dextrose 5% in Water 1,000 ML IV PRN (19:49)
[2021-05-09] MEDS ORDERED: HumaLOG 300 UNITS/3 ML VIAL SC PRN ×2 (19:49)
[2021-05-09] MEDS ORDERED: Albuterol Sulfate 1.25 MG/3 ML NEB INH PRN (20:09)
[2021-05-09 20:23] LABS: Troponin I Less than 0.010 ng/mL (< 0.028)
[2021-05-09 20:30] VITALS: BMI 17.6
[2021-05-09] MEDS: Gabapentin 100 MG CAP PO SCH (20:49)
[2021-05-09] MEDS: Famotidine/PF 20 mg/2ml Vial SLOW IVP SCH (20:49)
[2021-05-09] MEDS: rOPINIRole HCl 1 MG TAB PO SCH (20:49)
[2021-05-10] MEDS: traMADol HCl 50 MG TAB PO PRN ×3 (00:34→21:48)
[2021-05-10] MEDS: Acetaminophen 325 MG TAB PO PRN ×3 (05:06→17:29)
[2021-05-10 05:34] LABS: Bilirubin Negative (Negative); Blood, Urine 3+ (Negative); Clarity Turbid (Clear); Glucose, Urine (Dipstick) Normal (Negative); Ketone, Urine 10 mg/dL (Negative); Leukocyte 75 Leu/uL (Negative); Nitrite Negative (Negative); Protein, Urine (Dipstick) 70 mg/dL (Neg-Trace); RBC/HPF Greater than 50 HPF (0-3); Urobilinogen Normal mg/dL (Less than 2)
[2021-05-10 05:43] LABS: Bacteria/HPF 4+ HPF (None Seen); Specific Gravity, Urine 1.046 (1.002-1.036); WBC/HPF 21-50 HPF (0-3)
[2021-05-10 05:45] LABS: Urine Culture Reflex No No
[2021-05-10 06:40] LABS: Hemoglobin A1c 6.1 % (4.0-6.0)
[2021-05-10 06:42] LABS: Anion Gap 12 mmol/L (10-20); BUN (Urea Nitrogen) 16 mg/dL (9.8-20.1); Calc. Creatinine Clearance 38 mL/min (70-130); Calcium 8.6 mg/dL (7.8-10.44); Carbon Dioxide 22 mmol/L (23-31); Cardiac Risk 4.4 (Less than 4.5); Chloride 100 mmol/L (98-107); Cholesterol 118 mg/dl (< 200 Desired); Glucose 148 mg/dL (80-115); HDL Cholesterol 27 mg/dL (>60 Neg Risk); LDL Cholesterol, Calculated 75 mg/dL; Sodium 130 mmol/L (136-145); Triglycerides 81 mg/dL (Less than 150)
[2021-05-10 06:43] LABS: Band 5 % (5-11); Hemoglobin 11.7 g/dL (12.0-16.0); Lymphocytes 21 % (21-51); MDiff Complete? YES; Macrocytosis SLIGHT = 6-15 cells (100X) (0-5/hpf); Mean Corpuscular HGB CONC 32.8 g/dL (32.0-36.0); Mean Corpuscular Hemoglobin 29.7 pg (27.0-31.0); Mean Corpuscular Volume 90.4 fL (78.0-98.0); Mean Platelet Volume 7.9 fL (7.4-10.4); Monocytes 4 % (0-10); Neutrophil 67 % (42-75); Platelet Count 477 thou/uL (130-400); Platelet Morphology Comment Appears Decreased; RBC Distribution Width 13.1 % (11.5-14.5); Reactive Lymphocytes 3 % (0-10); Red Blood Cell (RBC) Count 3.93 mill/uL (4.20-5.40); White Blood Cell (WBC) Count 6.5 thou/uL (4.8-10.8)
[2021-05-10] MEDS: Enoxaparin Sodium 40 MG/0.4 ML SYRINGE SC SCH (09:30)
[2021-05-10] MEDS: Gabapentin 100 MG CAP PO SCH ×2 (09:31→21:39)
[2021-05-10] MEDS: Famotidine/PF 20 mg/2ml Vial SLOW IVP SCH ×2 (09:31→21:40)
[2021-05-10 13:09] LABS: Iron 39 ug/dL (50-170); Iron Binding Capacity, Total 395 mcg/dL (265-497)
[2021-05-10] MEDS ORDERED: Iron Sucrose Complex 200 MG in Sodium Chloride 0.9% 100 ML IVPB SCH (16:15)
[2021-05-10] MEDS ORDERED: Sulfameth/Trimethoprim DS 800-160mg TAB PO SCH (18:00)
[2021-05-10] MEDS ORDERED: Iron, Sodium Ferric Gluconate 250 MG in Sodium Chloride 0.9% 250 ML 250 ML IVPB SCH (18:15)
[2021-05-10] MEDS: rOPINIRole HCl 1 MG TAB PO SCH (21:39)
[2021-05-11] MEDS: Acetaminophen 325 MG TAB PO PRN (06:11)
[2021-05-11 07:33] LABS: Anion Gap 13 mmol/L (10-20); BUN (Urea Nitrogen) 22 mg/dL (9.8-20.1); Calc. Creatinine Clearance 27 mL/min (70-130); Calcium 8.1 mg/dL (7.8-10.44); Carbon Dioxide 19 mmol/L (23-31); Chloride 105 mmol/L (98-107); Glucose 147 mg/dL (80-115); Sodium 133 mmol/L (136-145)
[2021-05-11] MEDS ORDERED: Ferrous Sulfate 325 MG TAB PO SCH (08:00)
[2021-05-11] MEDS ORDERED: Sodium Chloride 0.9% 1,000 ML IV SCH (08:15)
[2021-05-11 08:59] VITALS: BP 140/87; TEMP 98.5
[2021-05-11] MEDS: Famotidine/PF 20 mg/2ml Vial SLOW IVP SCH (09:00)
[2021-05-11] MEDS ORDERED: Sulfameth/Trimethoprim DS 800-160mg TAB PO SCH (09:00)
[2021-05-11] MEDS ORDERED: Megestrol Acetate 800 MG/20 ML UDCUP PO SCH (09:00)
[2021-05-11] MEDS: Gabapentin 100 MG CAP PO SCH (09:01)
[2021-05-11] MEDS: traMADol HCl 50 MG TAB PO PRN (09:01)
[2021-05-11] MEDS: Enoxaparin Sodium 40 MG/0.4 ML SYRINGE SC SCH (09:01)
[2021-05-11 13:58] LABS: Albumin 3.3 g/dL (3.4-4.8); Magnesium 1.6 mg/dL (1.6-2.6)
[2021-05-12] MEDS ORDERED: Enoxaparin Sodium 30 MG/0.3 ML SYRINGE SC SCH (09:00)
[2021-05-12] MEDS ORDERED: Famotidine/PF 20 mg/2ml Vial SLOW IVP SCH (09:00)
[2021-05-12] MEDS ORDERED: FLU VACC QS2021-22(65YR UP)/PF 240 MCG/0.7 ML SYRINGE IM ONE (21:00)
== END 2021-05-11 11:55 | disposition home or self-care (01) ==
LOC: ERS 14:06 → ERHOLD 16:41 → 2NO 20:17
PROVIDERS: ADMIT Internal Medicine; ATTEND Internal Medicine
DX: R07.89 Other chest pain (principal); E87.1 Hypo-osmolality and hyponatremia; N39.0 Urinary tract infection, site not specified; E61.1 Iron deficiency; R00.0 Tachycardia, unspecified; I10 Essential (primary) hypertension; E11.42 Type 2 diabetes mellitus with diabetic polyneuropathy; G25.81 Restless legs syndrome; M19.90 Unspecified osteoarthritis, unspecified site; M81.0 Age-related osteoporosis without current pathological fracture; J45.909 Unspecified asthma, uncomplicated; E78.5 Hyperlipidemia, unspecified; M79.662 Pain in left lower leg; M79.661 Pain in right lower leg; G47.00 Insomnia, unspecified; E43 Unspecified severe protein-calorie malnutrition; Z68.1 Body mass index [BMI] 19.9 or less, adult; Z20.822 Contact with and (suspected) exposure to COVID-19; Z88.1 Allergy status to other antibiotic agents; Z88.5 Allergy status to narcotic agent; Z87.09 Personal history of other diseases of the respiratory system; Z79.84 Long term (current) use of oral hypoglycemic drugs; Z79.899 Other long term (current) drug therapy; Z98.890 Other specified postprocedural states; Z86.16 Personal history of COVID-19
CPT/HCPCS: 71045; 71275; 80048 ×2; 80053; 80061; 81001; 82040; 82728; 82962 ×3; 83036; 83540; 83550; 83735; 83880; 83930; 83935; 84443; 84484 ×2; 85007; 85025; 85027; 85379; 87077; 87086; 87186; 93005; 93306; 93970; 96372 ×4; 96374; 96375; 96376 ×2; 99285; G0378 ×4; U0002; 36415; 36416; J0360; J1650; J2916; J7050; Q0162; Q9967; S0028

== ENCOUNTER 2021-05-22 16:48 | Observation (INO) | payer MEDICARE ==
[2021-05-22 17:44] LABS: #Eosinphils 0.1 thou/uL (0.0-0.7); #Lymphocytes 1.5 thou/uL (1.20-3.40); #Monocytes 0.5 thou/uL (0.11-0.59); #Neutrophils 5.8 thou/uL (1.40-6.50); %Basophils 0.3 % (0.0-1.0); %Eosinophils 0.7 % (0.0-10.0); %Lymphocytes 18.9 % (21.0-51.0); %Monocytes 6.8 % (0.0-10.0); %Neutrophils 73.2 % (42.0-75.0); Hemoglobin 9.8 g/dL (12.0-16.0); Mean Corpuscular HGB CONC 33.1 g/dL (32.0-36.0); Mean Corpuscular Hemoglobin 30.3 pg (27.0-31.0); Mean Corpuscular Volume 91.5 fL (78.0-98.0); Mean Platelet Volume 8.5 fL (7.4-10.4); Platelet Count 421 thou/uL (130-400); Red Blood Cell (RBC) Count 3.25 mill/uL (4.20-5.40); White Blood Cell (WBC) Count 7.9 thou/uL (4.8-10.8)
[2021-05-22 18:24] LABS: ALT (SGPT) 34 U/L (8-55); AST (SGOT) 49 U/L (5-34); Albumin 3.5 g/dL (3.4-4.8); Alkaline Phosphatase 204 U/L (40-110); Anion Gap 18 mmol/L (10-20); BUN (Urea Nitrogen) 20 mg/dL (9.8-20.1); Bilirubin, Total 0.4 mg/dL (0.2-1.2); Calc. Creatinine Clearance 0 mL/min (70-130); Calcium 7.9 mg/dL (7.8-10.44); Carbon Dioxide 12 mmol/L (23-31); Chloride 116 mmol/L (98-107); Globulin 3.9 g/dL (2.4-3.5); Glucose 96 mg/dL (80-115); Protein, Total 7.4 g/dL (5.8-8.1); Sodium 142 mmol/L (136-145)
[2021-05-22] MEDS ORDERED: Azithromycin 500 MG VIAL ONE (19:07)
[2021-05-22] MEDS ORDERED: cefTRIAXone\\ROCEPHIN 1 GM VIAL ONE (19:08)
[2021-05-22] MEDS ORDERED: hydrALAZINE 20 MG/ML VIAL SLOW IVP PRN (22:47)
[2021-05-22] MEDS ORDERED: Sodium Chloride 0.9% 1,000 ML IV SCH (23:00)
[2021-05-23] MEDS ORDERED: Ondansetron PF 4 MG/2 ML Vial IVP PRN (02:08)
[2021-05-23] MEDS ORDERED: Ondansetron ODT 4 MG TAB PO PRN (02:08)
[2021-05-23] MEDS ORDERED: Acetaminophen 650 MG Suppository PR PRN (02:08)
[2021-05-23] MEDS ORDERED: Sodium Chloride 0.9% 1,000 ML IV SCH (02:08)
[2021-05-23] MEDS ORDERED: Acetaminophen 325 MG TAB PO PRN (02:08)
[2021-05-23] MEDS ORDERED: Dextrose 5% in Water 1,000 ML IV PRN (02:13)
[2021-05-23] MEDS ORDERED: Dextrose 50% Abboject 50 ML SYRINGE SLOW IVP PRN (02:13)
[2021-05-23] MEDS ORDERED: HumaLOG 300 UNITS/3 ML VIAL SC PRN ×2 (02:13)
[2021-05-23] MEDS ORDERED: Piperacillin/Tazobactam 3.375 GM in Sodium Chloride 0.9% 100 ML IVPB SCH (02:15)
[2021-05-23 04:50] LABS: #Eosinphils 0.1 thou/uL (0.0-0.7); #Lymphocytes 1.1 thou/uL (1.20-3.40); #Monocytes 0.5 thou/uL (0.11-0.59); #Neutrophils 6.8 thou/uL (1.40-6.50); %Basophils 0.3 % (0.0-1.0); %Eosinophils 0.8 % (0.0-10.0); %Lymphocytes 13.1 % (21.0-51.0); %Monocytes 6.2 % (0.0-10.0); %Neutrophils 79.6 % (42.0-75.0); Mean Corpuscular HGB CONC 34.6 g/dL (32.0-36.0); Mean Corpuscular Hemoglobin 31.6 pg (27.0-31.0); Mean Corpuscular Volume 91.4 fL (78.0-98.0); Mean Platelet Volume 7.9 fL (7.4-10.4); Platelet Count 404 thou/uL (130-400); RBC Distribution Width 14.9 % (11.5-14.5); Red Blood Cell (RBC) Count 3.47 mill/uL (4.20-5.40); White Blood Cell (WBC) Count 8.6 thou/uL (4.8-10.8)
[2021-05-23 05:01] LABS: SARS-CoV-2 NAA Rapid Test Not Detected (NotDetected)
[2021-05-23 05:03] LABS: Lactic Acid 1.3 mmol/L (0.5-2.2)
[2021-05-23 05:18] LABS: Anion Gap 17 mmol/L (10-20); BUN (Urea Nitrogen) 13 mg/dL (9.8-20.1); Calc. Creatinine Clearance 45 mL/min (70-130); Calcium 7.7 mg/dL (7.8-10.44); Carbon Dioxide 15 mmol/L (23-31); Chloride 117 mmol/L (98-107); Glucose 102 mg/dL (80-115); Potassium 3.7 mmol/L (3.5-5.1); Sodium 145 mmol/L (136-145)
[2021-05-23] MEDS: Piperacillin/Tazobactam 3.375 GM in Sodium Chloride 0.9% 100 ML IVPB SCH ×2 (05:44→13:50)
[2021-05-23 08:18] VITALS: BMI 16.9
[2021-05-23 08:21] LABS: Bilirubin Negative (Negative); Blood, Urine Negative (Negative); Glucose, Urine (Dipstick) Negative (Negative); Ketone, Urine Negative (Negative); Leukocyte Negative (Negative); Nitrite Positive (Negative); Protein, Urine (Dipstick) Negative (Neg-Trace); Specific Gravity, Urine 1.015 (1.005-1.030); Urobilinogen 0.2 mg/dL (Less than 2); pH, Urine 6.5 (5.0-9.0)
[2021-05-23 08:22] LABS: Clarity Clear (Clear)
[2021-05-23 08:27] LABS: WBC/HPF 0-3 HPF (0-3)
[2021-05-23 08:28] LABS: Bacteria/HPF 1+ HPF (None Seen)
[2021-05-23 08:29] LABS: Urine Culture Reflex No No
[2021-05-23] MEDS ORDERED: Enoxaparin Sodium 40 MG/0.4 ML SYRINGE SC SCH (09:00)
[2021-05-23] MEDS ORDERED: cloNIDine 0.1 MG TAB PO SCH ×3 (12:31→21:00)
[2021-05-23] MEDS ORDERED: traMADol HCl 50 MG TAB PO PRN (12:31)
[2021-05-23] MEDS ORDERED: Non-Formulary Item 1 EACH (Ferrous Sulfate [Ferrous Sulfate] 325 MG Tab) PO SCH (12:31)
[2021-05-23] MEDS ORDERED: Non-Formulary Item 1 EACH (Pregabalin [Lyrica] 150 MG Capsule) PO SCH (12:31)
[2021-05-23] MEDS ORDERED: rOPINIRole HCl 1 MG TAB PO SCH ×3 (12:31→21:00)
[2021-05-23] MEDS ORDERED: Pregabalin 75 MG CAP PO SCH ×2 (12:45→15:00)
[2021-05-23] MEDS ORDERED: Megestrol Acetate 40 MG TAB PO SCH (13:00)
[2021-05-23] MEDS ORDERED: Ferrous Sulfate 325 MG TAB PO SCH (13:00)
[2021-05-23] MEDS ORDERED: Losartan 25 MG TAB PO SCH (13:00)
[2021-05-23] MEDS ORDERED: Aspirin 81 mg Enteric Coated Tablet PO SCH (13:00)
[2021-05-23] MEDS ORDERED: Amlodipine 10 MG TAB PO SCH (13:00)
[2021-05-23 16:03] VITALS: BP 152/74; TEMP 98.2
[2021-05-24] MEDS ORDERED: FLU VACC QS2021-22(65YR UP)/PF 240 MCG/0.7 ML SYRINGE IM ONE (09:00)
== END 2021-05-23 18:00 | disposition home or self-care (01) ==
LOC: ERS 16:48 → INTOOBSV 21:15 → T4-B 21:15 → 2SW 05-23 03:27
PROVIDERS: ADMIT Student in an Organized Health Care Education/Training Program; ATTEND Internal Medicine
DX: J18.9 Pneumonia, unspecified organism (principal); J45.909 Unspecified asthma, uncomplicated; K76.0 Fatty (change of) liver, not elsewhere classified; N28.1 Cyst of kidney, acquired; I10 Essential (primary) hypertension; E11.40 Type 2 diabetes mellitus with diabetic neuropathy, unspecified; G25.81 Restless legs syndrome; M19.90 Unspecified osteoarthritis, unspecified site; M81.0 Age-related osteoporosis without current pathological fracture; R53.1 Weakness; E44.0 Moderate protein-calorie malnutrition; Z68.1 Body mass index [BMI] 19.9 or less, adult; Z20.822 Contact with and (suspected) exposure to COVID-19; Z88.1 Allergy status to other antibiotic agents; Z88.5 Allergy status to narcotic agent; Z79.84 Long term (current) use of oral hypoglycemic drugs; Z79.899 Other long term (current) drug therapy
CPT/HCPCS: 71045; 71260; 74177; 80048; 80053; 81001; 82962; 83605; 83880; 84484; 85025 ×2; 87040; 93005; 96365; 96366; 96367; 97139 ×2; 99285; U0002; 36415; 36416; J0360; J0456; J0696; J1650; J2543; J3490; J7050; Q9967; S0179

== ENCOUNTER 2021-06-27 13:16 | Inpatient (IN) | payer MEDICARE ==
[2021-06-27 14:26] LABS: Bilirubin Negative (Negative); Blood, Urine Negative (Negative); Glucose, Urine (Dipstick) 200 mg/dL (Negative); Ketone, Urine Negative (Negative); Leukocyte Negative Leu/uL (Negative); Nitrite Negative (Negative); Protein, Urine (Dipstick) Negative (Neg-Trace); Specific Gravity, Urine 1.008 (1.002-1.036); Urobilinogen Normal mg/dL (Less than 2)
[2021-06-27 14:29] LABS: #Lymphocytes 1.1 thou/uL (1.20-3.40); #Monocytes 0.5 thou/uL (0.11-0.59); #Neutrophils 5.1 thou/uL (1.40-6.50); %Basophils 0.3 % (0.0-1.0); %Eosinophils 0.2 % (0.0-10.0); %Lymphocytes 16.9 % (21.0-51.0); %Monocytes 7.2 % (0.0-10.0); %Neutrophils 75.5 % (42.0-75.0); Hemoglobin 10.5 g/dL (12.0-16.0); Mean Corpuscular HGB CONC 33.5 g/dL (32.0-36.0); Mean Corpuscular Hemoglobin 30.5 pg (27.0-31.0); Mean Corpuscular Volume 90.9 fL (78.0-98.0); Mean Platelet Volume 8.7 fL (7.4-10.4); Platelet Count 332 thou/uL (130-400); RBC Distribution Width 13.2 % (11.5-14.5); Red Blood Cell (RBC) Count 3.44 mill/uL (4.20-5.40); White Blood Cell (WBC) Count 6.8 thou/uL (4.8-10.8)
[2021-06-27 14:30] LABS: Clarity Clear (Clear)
[2021-06-27 14:49] LABS: ALT (SGPT) 30 U/L (8-55); AST (SGOT) 54 U/L (5-34); Albumin 3.7 g/dL (3.4-4.8); Alkaline Phosphatase 230 U/L (40-110); Anion Gap 14 mmol/L (10-20); BUN (Urea Nitrogen) 10 mg/dL (9.8-20.1); Bilirubin, Total 0.4 mg/dL (0.2-1.2); Calc. Creatinine Clearance 0 mL/min (70-130); Calcium 8.5 mg/dL (7.8-10.44); Carbon Dioxide 20 mmol/L (23-31); Chloride 108 mmol/L (98-107); Globulin 3.9 g/dL (2.4-3.5); Glucose 109 mg/dL (80-115); Potassium 3.2 mmol/L (3.5-5.1); Protein, Total 7.6 g/dL (5.8-8.1); Sodium 139 mmol/L (136-145)
[2021-06-27 15:48] LABS: Acetaminophen Less than 6.0 mcg/mL (10.0-30.0); Alcohol Less than 10 mg/dL (Less than 10); Lipase 16 U/L (8-78); Magnesium 1.3 mg/dL (1.6-2.6); Salicylate Less than 8.0 mg/dL (15.0-30.0)
[2021-06-27 15:51] LABS: Amphetamine Not Detected (NotDetected); Barbiturates Screen Not Detected (NotDetected); Benzodiazepine Screen Not Detected (NotDetected); Cocaine Metabolite Screen Not Detected (NotDetected); Methadone Not Detected (NotDetected); Methamphetamine Not Detected (NotDetected); Opiate Screen Not Detected (NotDetected); Oxycodone Screen Not Detected (NotDetected); Phencyclidine (PCP) Not Detected (NotDetected); THC/Cannabinoid Screen Not Detected (NotDetected); Tricyclic Screen Not Detected (NotDetected)
[2021-06-27] MEDS ORDERED: Magnesium 2 GM/50 ML BAG (IN WATER) ONE (15:55)
[2021-06-27] MEDS ORDERED: hydrALAZINE 20 MG/ML VIAL SLOW IVP PRN (20:29)
[2021-06-27] MEDS ORDERED: HumaLOG 300 UNITS/3 ML VIAL SC PRN (20:32)
[2021-06-27] MEDS ORDERED: Dextrose 5% in Water 1,000 ML IV PRN (20:32)
[2021-06-27] MEDS ORDERED: Dextrose 50% Abboject 50 ML SYRINGE SLOW IVP PRN (20:32)
[2021-06-27] MEDS ORDERED: Electrolyte Replacement Protocol 1 EACH FS SCH (20:45)
[2021-06-27] MEDS ORDERED: Potassium Chloride 20 MEQ TAB PO SCH (20:45)
[2021-06-27] MEDS ORDERED: Potassium Chloride 10 MEQ in Premix Bag 1 BAG IVPB SCH (21:15)
[2021-06-27] MEDS ORDERED: FLU VACC QS2021-22(65YR UP)/PF 240 MCG/0.7 ML SYRINGE IM ONE (23:00)
[2021-06-28 04:38] LABS: #Lymphocytes 1.3 thou/uL (1.20-3.40); #Monocytes 0.4 thou/uL (0.11-0.59); #Neutrophils 4.9 thou/uL (1.40-6.50); %Basophils 0.1 % (0.0-1.0); %Eosinophils 0.2 % (0.0-10.0); %Lymphocytes 19.2 % (21.0-51.0); %Monocytes 5.7 % (0.0-10.0); %Neutrophils 74.8 % (42.0-75.0); Hemoglobin 12.7 g/dL (12.0-16.0); Mean Corpuscular HGB CONC 33.8 g/dL (32.0-36.0); Mean Corpuscular Hemoglobin 31.5 pg (27.0-31.0); Mean Corpuscular Volume 92.9 fL (78.0-98.0); Mean Platelet Volume 8.4 fL (7.4-10.4); Platelet Count 336 thou/uL (130-400); RBC Distribution Width 13.3 % (11.5-14.5); Red Blood Cell (RBC) Count 4.02 mill/uL (4.20-5.40); White Blood Cell (WBC) Count 6.6 thou/uL (4.8-10.8)
[2021-06-28 04:51] LABS: Anion Gap 16 mmol/L (10-20); BUN (Urea Nitrogen) 8 mg/dL (9.8-20.1); Calc. Creatinine Clearance 42 mL/min (70-130); Calcium 9.3 mg/dL (7.8-10.44); Carbon Dioxide 19 mmol/L (23-31); Cardiac Risk 2.7 (Less than 4.5); Chloride 108 mmol/L (98-107); Cholesterol 104 mg/dl (< 200 Desired); Glucose 98 mg/dL (80-115); HDL Cholesterol 39 mg/dL (>60 Neg Risk); LDL Cholesterol, Calculated 52 mg/dL; Potassium 3.2 mmol/L (3.5-5.1); Sodium 140 mmol/L (136-145); Triglycerides 64 mg/dL (Less than 150)
[2021-06-28] MEDS: Acetaminophen 325 MG TAB PO PRN ×3 (05:14→15:07)
[2021-06-28] MEDS ORDERED: Potassium Chloride 40 MEQ in Sodium Chloride 0.9% 250 ML 250 ML IVPB SCH (07:00)
[2021-06-28 10:27] VITALS: BMI 16.9
[2021-06-28] MEDS ORDERED: Potassium Chloride 20 MEQ TAB PO SCH (11:47)
[2021-06-28 12:47] LABS: Potassium 3.1 mmol/L (3.5-5.1)
[2021-06-28] MEDS ORDERED: Amlodipine 10 MG TAB PO SCH (14:30)
[2021-06-28 15:12] VITALS: BP 189/84
[2021-06-28 15:16] VITALS: TEMP 97.5
[2021-06-28 16:42] LABS: SARS-CoV-2 PCR by NAA Not Detected (NotDetected)
== END 2021-06-28 16:30 | disposition home or self-care (01) | DRG 690 ==
LOC: ERS 13:16 → T4-A 17:35 → 2NO 21:42
PROVIDERS: ADMIT Hospitalist; ATTEND Hospitalist
DX: N39.0 Urinary tract infection, site not specified (principal); E44.0 Moderate protein-calorie malnutrition; Z68.1 Body mass index [BMI] 19.9 or less, adult; Z20.822 Contact with and (suspected) exposure to COVID-19; E87.6 Hypokalemia; E83.42 Hypomagnesemia; G25.81 Restless legs syndrome; I10 Essential (primary) hypertension; K27.9 Peptic ulcer, site unspecified, unspecified as acute or chronic, without hemorrhage or perforation; E11.42 Type 2 diabetes mellitus with diabetic polyneuropathy; Z88.1 Allergy status to other antibiotic agents; Z88.5 Allergy status to narcotic agent; Z79.82 Long term (current) use of aspirin; Z79.84 Long term (current) use of oral hypoglycemic drugs; Z79.899 Other long term (current) drug therapy; Z90.49 Acquired absence of other specified parts of digestive tract; Z90.710 Acquired absence of both cervix and uterus; Z98.890 Other specified postprocedural states
CPT/HCPCS: 36415; 36416; 70450; 70551; 71045; 80048; 80053; 80061; 80306; 80307; 81003; 83690; 83735; 83880; 84484; 85025; 87077; 87086; 87186; 93005; 93880; 96365; J3475; J3480; J7050; U0003; U0005

== ENCOUNTER 2022-01-09 21:47 | Emergency (ER) | payer MEDICARE, OTHER ==
[2022-01-09] MEDS ORDERED: Ketorolac Tromethamine 30 MG/ML VIAL ONE (22:22)
[2022-01-09] MEDS ORDERED: Ondansetron PF 4 MG/2 ML Vial ONE (22:22)
[2022-01-09 22:33] LABS: #Lymphocytes 1.6 thou/uL (1.20-3.40); #Monocytes 0.5 thou/uL (0.11-0.59); #Neutrophils 4.9 thou/uL (1.40-6.50); %Basophils 0.5 % (0.0-1.0); %Eosinophils 0.3 % (0.0-10.0); %Lymphocytes 22.8 % (21.0-51.0); %Monocytes 7.6 % (0.0-10.0); %Neutrophils 68.9 % (42.0-75.0); Hemoglobin 11.9 g/dL (12.0-16.0); Mean Corpuscular HGB CONC 34.1 g/dL (32.0-36.0); Mean Corpuscular Hemoglobin 30.1 pg (27.0-31.0); Mean Corpuscular Volume 88.3 fL (78.0-98.0); Mean Platelet Volume 7.3 fL (7.4-10.4); Platelet Count 434 thou/uL (130-400); RBC Distribution Width 12.2 % (11.5-14.5); Red Blood Cell (RBC) Count 3.94 mill/uL (4.20-5.40)
[2022-01-09 22:42] LABS: ALT (SGPT) 34 U/L (8-55); AST (SGOT) 41 U/L (5-34); Albumin 4.6 g/dL (3.4-4.8); Alkaline Phosphatase 188 U/L (40-110); Anion Gap 19 mmol/L (10-20); BUN (Urea Nitrogen) 51 mg/dL (9.8-20.1); Bilirubin, Total 0.6 mg/dL (0.2-1.2); Calc. Creatinine Clearance 0 mL/min (70-130); Calcium 9.3 mg/dL (7.8-10.44); Carbon Dioxide 24 mmol/L (23-31); Chloride 94 mmol/L (98-107); Globulin 4.1 g/dL (2.4-3.5); Glucose 106 mg/dL (80-115); Lipase 20 U/L (8-78); Potassium 3.8 mmol/L (3.5-5.1); Protein, Total 8.7 g/dL (5.8-8.1); Sodium 133 mmol/L (136-145)
[2022-01-09] MEDS ORDERED: traMADol HCl 50 MG TAB ONE (23:37)
[2022-01-09 23:48] LABS: Bacteria/HPF 3+ HPF (None Seen); Bilirubin Negative (Negative); Blood, Urine Negative (Negative); Clarity Clear (Clear); Glucose, Urine (Dipstick) Normal (Negative); Ketone, Urine 20 mg/dL (Negative); Leukocyte 75 Leu/uL (Negative); Nitrite Negative (Negative); Protein, Urine (Dipstick) 30 mg/dL (Neg-Trace); RBC/HPF 0-3 HPF (0-3); Specific Gravity, Urine 1.018 (1.002-1.036); Squamous Epithelial 0-3 HPF (0-3)
== END 2022-01-10 00:20 | disposition home or self-care (01) ==
LOC: ERS 21:47
DX: N30.00 Acute cystitis without hematuria (principal); K21.9 Gastro-esophageal reflux disease without esophagitis; E11.9 Type 2 diabetes mellitus without complications; I10 Essential (primary) hypertension; Z79.899 Other long term (current) drug therapy; Z79.84 Long term (current) use of oral hypoglycemic drugs
CPT/HCPCS: 51701; 74176; 80053; 81003; 81015; 83690; 85025; 87077; 87086; 87186; 93005; 96361; 96374; 96375; J1885; J2405

== ENCOUNTER 2022-02-18 10:25 | Outpatient (CLI) | payer MEDICARE | END 2022-02-18 10:26 | disposition home or self-care (01) | LOC: BICMAMMO 10:25 | PROVIDERS: ATTEND Internal Medicine Rheumatology | DX: M81.0 Age-related osteoporosis without current pathological fracture (principal); M25.561 Pain in right knee; M25.562 Pain in left knee | CPT/HCPCS: 77080 ==

== ENCOUNTER 2022-03-01 19:28 | Observation (INO) | payer MEDICARE ==
[2022-03-01 20:05] LABS: #Lymphocytes 1.7 thou/uL (1.20-3.40); #Monocytes 0.4 thou/uL (0.11-0.59); #Neutrophils 3.1 thou/uL (1.40-6.50); %Basophils 0.2 % (0.0-1.0); %Eosinophils 0.3 % (0.0-10.0); %Lymphocytes 32.2 % (21.0-51.0); %Monocytes 7.9 % (0.0-10.0); %Neutrophils 59.4 % (42.0-75.0); Hemoglobin 11.7 g/dL (12.0-16.0); Mean Corpuscular HGB CONC 34.6 g/dL (32.0-36.0); Mean Corpuscular Hemoglobin 30.8 pg (27.0-31.0); Mean Corpuscular Volume 89.2 fL (78.0-98.0); Mean Platelet Volume 7.6 fL (7.4-10.4); Platelet Count 383 thou/uL (130-400); RBC Distribution Width 12.7 % (11.5-14.5); Red Blood Cell (RBC) Count 3.81 mill/uL (4.20-5.40); White Blood Cell (WBC) Count 5.3 thou/uL (4.8-10.8)
[2022-03-01 20:52] LABS: ALT (SGPT) 20 U/L (8-55); AST (SGOT) 25 U/L (5-34); Albumin 3.4 g/dL (3.4-4.8); Alkaline Phosphatase 86 U/L (40-110); Anion Gap 13 mmol/L (10-20); BUN (Urea Nitrogen) 16 mg/dL (9.8-20.1); Bilirubin, Total 0.5 mg/dL (0.2-1.2); CK (CPK) 15 U/L (29-168); Calc. Creatinine Clearance 0 mL/min (70-130); Calcium 8.3 mg/dL (7.8-10.44); Carbon Dioxide 19 mmol/L (23-31); Chloride 106 mmol/L (98-107); Estimated GFR 55; Globulin 2.9 g/dL (2.4-3.5); Glucose 124 mg/dL (80-115); Lipase 11 U/L (8-78); Magnesium 1.6 mg/dL (1.6-2.6); Protein, Total 6.3 g/dL (5.8-8.1); Sodium 135 mmol/L (136-145)
[2022-03-01 20:58] LABS: Potassium 2.7 mmol/L (3.5-5.1)
[2022-03-01] MEDS ORDERED: Magnesium 2 GM/50 ML BAG (IN WATER) ONE (21:10)
[2022-03-01] MEDS ORDERED: Potassium Chloride 20 MEQ TAB ONE (21:10)
[2022-03-01] MEDS ORDERED: Acetaminophen 325 MG TAB ONE (21:16)
[2022-03-02] MEDS ORDERED: Ondansetron ODT 4 MG TAB PO PRN (03:23)
[2022-03-02] MEDS ORDERED: Guaifenesin DM 100-10/5 ML UDCUP PO PRN (03:23)
[2022-03-02] MEDS ORDERED: Acetaminophen 650 MG Suppository PR PRN (03:23)
[2022-03-02] MEDS ORDERED: Bisacodyl 5 MG TAB PO PRN (03:23)
[2022-03-02] MEDS ORDERED: Senokot S 8.6-50 MG TAB PO PRN (03:23)
[2022-03-02] MEDS ORDERED: Ondansetron PF 4 MG/2 ML Vial IVP PRN (03:23)
[2022-03-02] MEDS ORDERED: Dextrose 5% in Water 1,000 ML IV PRN (03:27)
[2022-03-02] MEDS ORDERED: Dextrose 50% Abboject 50 ML SYRINGE SLOW IVP PRN (03:27)
[2022-03-02] MEDS ORDERED: HumaLOG 300 UNITS/3 ML VIAL SC PRN ×2 (03:27)
[2022-03-02] MEDS ORDERED: hydrALAZINE 20 MG/ML VIAL SLOW IVP PRN (06:33)
[2022-03-02] MEDS ORDERED: hydrALAZINE 20 MG/ML VIAL ONE (06:37)
[2022-03-02 06:42] LABS: Anion Gap 15 mmol/L (10-20); BUN (Urea Nitrogen) 11 mg/dL (9.8-20.1); Calc. Creatinine Clearance 34 mL/min (70-130); Calcium 8.6 mg/dL (7.8-10.44); Carbon Dioxide 19 mmol/L (23-31); Chloride 103 mmol/L (98-107); Estimated GFR 82; Glucose 93 mg/dL (80-115); Sodium 134 mmol/L (136-145)
[2022-03-02] MEDS ORDERED: Potassium Chloride 20 MEQ TAB PO SCH (07:17)
[2022-03-02] MEDS ORDERED: Magnesium 2 GM/50 ML(in water) 2 GM in Premix Bag 1 BAG IVPB SCH (07:18)
[2022-03-02] MEDS ORDERED: Potassium Chloride 20 MEQ TAB ONE (07:49)
[2022-03-02] MEDS ORDERED: Magnesium 2 GM/50 ML BAG (IN WATER) ONE (07:49)
[2022-03-02] MEDS ORDERED: Amlodipine 5 MG TAB ONE ×2 (09:24→12:12)
[2022-03-02] MEDS ORDERED: Aspirin Chewable 81 MG TAB ONE ×2 (09:24→12:12)
[2022-03-02] MEDS ORDERED: cloNIDine 0.1 MG TAB ONE ×2 (09:24→12:12)
[2022-03-02 11:44] LABS: Potassium 3.7 mmol/L (3.5-5.1)
[2022-03-02] MEDS ORDERED: Acetaminophen 325 MG TAB ONE (12:12)
[2022-03-02] MEDS: Acetaminophen 325 MG TAB PO PRN (12:16)
[2022-03-02] MEDS: Amlodipine 10 MG TAB PO SCH (12:33)
[2022-03-02] MEDS: cloNIDine 0.1 MG TAB PO SCH ×2 (12:34→20:09)
[2022-03-02] MEDS: Aspirin 81 mg Enteric Coated Tablet PO SCH (12:34)
[2022-03-02] MEDS ORDERED: Megestrol Acetate 40 MG TAB PO SCH (13:00)
[2022-03-02] MEDS ORDERED: Ascorbic Acid 500 mg Chewable Tablet PO SCH (15:15)
[2022-03-02] MEDS: Losartan 25 MG TAB PO SCH (17:08)
[2022-03-03] MEDS: Acetaminophen 325 MG TAB PO PRN ×2 (00:09→09:53)
[2022-03-03] MEDS: HYDROcodone/Acetaminophen 5/325 mg Tablet PO PRN ×2 (04:06→14:05)
[2022-03-03 06:51] LABS: #Lymphocytes 1.8 thou/uL (1.20-3.40); #Monocytes 0.4 thou/uL (0.11-0.59); #Neutrophils 2.7 thou/uL (1.40-6.50); %Basophils 0.4 % (0.0-1.0); %Eosinophils 0.3 % (0.0-10.0); %Lymphocytes 36.1 % (21.0-51.0); %Monocytes 8.5 % (0.0-10.0); %Neutrophils 54.7 % (42.0-75.0); Hemoglobin 9.9 g/dL (12.0-16.0); Mean Corpuscular HGB CONC 33.9 g/dL (32.0-36.0); Mean Corpuscular Hemoglobin 30.7 pg (27.0-31.0); Mean Corpuscular Volume 90.5 fL (78.0-98.0); Mean Platelet Volume 7.2 fL (7.4-10.4); Platelet Count 438 thou/uL (130-400); RBC Distribution Width 12.7 % (11.5-14.5); Red Blood Cell (RBC) Count 3.24 mill/uL (4.20-5.40); White Blood Cell (WBC) Count 4.9 thou/uL (4.8-10.8)
[2022-03-03 07:09] LABS: Anion Gap 11 mmol/L (10-20); BUN (Urea Nitrogen) 15 mg/dL (9.8-20.1); Calc. Creatinine Clearance 39 mL/min (70-130); Carbon Dioxide 21 mmol/L (23-31); Chloride 107 mmol/L (98-107); Estimated GFR 86; Glucose 107 mg/dL (80-115); Magnesium 2.2 mg/dL (1.6-2.6); Potassium 3.6 mmol/L (3.5-5.1); Sodium 135 mmol/L (136-145)
[2022-03-03] MEDS ORDERED: Ascorbic Acid 500 mg Chewable Tablet PO SCH (09:00)
[2022-03-03] MEDS ORDERED: Megestrol Acetate 40 MG TAB PO SCH (09:00)
[2022-03-03] MEDS ORDERED: Zinc Sulfate 220 MG CAP PO SCH (09:00)
[2022-03-03] MEDS: Amlodipine 10 MG TAB PO SCH (09:46)
[2022-03-03] MEDS: cloNIDine 0.1 MG TAB PO SCH (09:47)
[2022-03-03] MEDS: Aspirin 81 mg Enteric Coated Tablet PO SCH (09:47)
[2022-03-03] MEDS: Losartan 25 MG TAB PO SCH (09:48)
[2022-03-03 12:27] VITALS: BP 119/56; TEMP 99.4
== END 2022-03-03 14:44 | disposition home health service (06) ==
LOC: ERS 19:28 → ERHOLD 23:40 → 2SW 03-02 14:01
PROVIDERS: ADMIT Internal Medicine; ATTEND Internal Medicine
DX: E87.6 Hypokalemia (principal); E83.42 Hypomagnesemia; G89.29 Other chronic pain; M25.561 Pain in right knee; M25.562 Pain in left knee; U07.1 COVID-19; R29.6 Repeated falls; I10 Essential (primary) hypertension; E11.42 Type 2 diabetes mellitus with diabetic polyneuropathy; G25.81 Restless legs syndrome; M81.0 Age-related osteoporosis without current pathological fracture; J45.909 Unspecified asthma, uncomplicated; R53.1 Weakness; Z87.11 Personal history of peptic ulcer disease; Z79.84 Long term (current) use of oral hypoglycemic drugs; Z79.899 Other long term (current) drug therapy; Z88.1 Allergy status to other antibiotic agents; Z88.5 Allergy status to narcotic agent
CPT/HCPCS: 70450; 71045; 73564 ×2; 80048 ×2; 80053; 82550; 82962 ×2; 83615; 83690; 83735 ×2; 84132; 84484; 85025 ×2; 86140; 93005; 93970; 96361; 96365; 97116; 99285; U0003; U0005; 36415; 36416; 96375; G0378; J0360; J3475; S0179

== ENCOUNTER 2022-03-06 17:26 | Inpatient (IN) | payer MEDICARE ==
[2022-03-06 18:29] LABS: #Lymphocytes 1.9 thou/uL (1.20-3.40); #Monocytes 0.4 thou/uL (0.11-0.59); #Neutrophils 5.9 thou/uL (1.40-6.50); %Basophils 0.2 % (0.0-1.0); %Eosinophils 0.4 % (0.0-10.0); %Lymphocytes 23.3 % (21.0-51.0); %Monocytes 5.1 % (0.0-10.0); Hemoglobin 11.9 g/dL (12.0-16.0); Mean Corpuscular HGB CONC 33.3 g/dL (32.0-36.0); Mean Corpuscular Hemoglobin 30.2 pg (27.0-31.0); Mean Corpuscular Volume 90.9 fL (78.0-98.0); Mean Platelet Volume 7.7 fL (7.4-10.4); Platelet Count 563 thou/uL (130-400); Red Blood Cell (RBC) Count 3.94 mill/uL (4.20-5.40); White Blood Cell (WBC) Count 8.3 thou/uL (4.8-10.8)
[2022-03-06 18:51] LABS: ALT (SGPT) 25 U/L (8-55); AST (SGOT) 35 U/L (5-34); Albumin 4.1 g/dL (3.4-4.8); Alkaline Phosphatase 134 U/L (40-110); Anion Gap 19 mmol/L (10-20); BUN (Urea Nitrogen) 14 mg/dL (9.8-20.1); Bilirubin, Total 0.7 mg/dL (0.2-1.2); Calc. Creatinine Clearance 0 mL/min (70-130); Calcium 9.6 mg/dL (7.8-10.44); Carbon Dioxide 18 mmol/L (23-31); Chloride 100 mmol/L (98-107); Estimated GFR 88; Globulin 3.6 g/dL (2.4-3.5); Glucose 118 mg/dL (80-115); Magnesium 1.8 mg/dL (1.6-2.6); Potassium 4.4 mmol/L (3.5-5.1); Protein, Total 7.7 g/dL (5.8-8.1); Sodium 133 mmol/L (136-145)
[2022-03-06 19:05] LABS: Bacteria/HPF 4+ HPF (None Seen); Bilirubin Negative (Negative); Blood, Urine Negative (Negative); Clarity Turbid (Clear); Glucose, Urine (Dipstick) Normal (Negative); Ketone, Urine 10 mg/dL (Negative); Leukocyte Negative Leu/uL (Negative); Nitrite Negative (Negative); Protein, Urine (Dipstick) 50 mg/dL (Neg-Trace); RBC/HPF 0-3 HPF (0-3); Specific Gravity, Urine 1.016 (1.002-1.036); Squamous Epithelial None Seen HPF (0-3); Urobilinogen Normal mg/dL (Less than 2); WBC/HPF 0-3 HPF (0-3); pH, Urine 6.5 (5.0-9.0)
[2022-03-06] MEDS ORDERED: Amlodipine 5 MG TAB ONE ×2 (21:45→21:47)
[2022-03-06] MEDS ORDERED: cefTRIAXone\\ROCEPHIN 1 GM VIAL ONE (21:45)
[2022-03-07 00:14] VITALS: BMI 19.5
[2022-03-07] MEDS ORDERED: Sodium Chloride 0.9% 1,000 ML IV SCH (02:30)
[2022-03-07 05:32] LABS: #Lymphocytes 1.6 thou/uL (1.20-3.40); #Monocytes 0.4 thou/uL (0.11-0.59); #Neutrophils 7.8 thou/uL (1.40-6.50); %Eosinophils 0.1 % (0.0-10.0); %Lymphocytes 16.6 % (21.0-51.0); %Monocytes 4.1 % (0.0-10.0); %Neutrophils 79.2 % (42.0-75.0); Hemoglobin 10.9 g/dL (12.0-16.0); Mean Corpuscular HGB CONC 33.6 g/dL (32.0-36.0); Mean Corpuscular Hemoglobin 30.9 pg (27.0-31.0); Mean Corpuscular Volume 92.1 fL (78.0-98.0); Mean Platelet Volume 7.1 fL (7.4-10.4); Platelet Count 531 thou/uL (130-400); RBC Distribution Width 12.9 % (11.5-14.5); Red Blood Cell (RBC) Count 3.51 mill/uL (4.20-5.40); White Blood Cell (WBC) Count 9.9 thou/uL (4.8-10.8)
[2022-03-07 05:53] LABS: Anion Gap 14 mmol/L (10-20); BUN (Urea Nitrogen) 10 mg/dL (9.8-20.1); Calc. Creatinine Clearance 48 mL/min (70-130); Calcium 8.9 mg/dL (7.8-10.44); Carbon Dioxide 19 mmol/L (23-31); Chloride 102 mmol/L (98-107); Estimated GFR 98; Glucose 112 mg/dL (80-115); Potassium 3.2 mmol/L (3.5-5.1); Sodium 132 mmol/L (136-145)
[2022-03-07] MEDS ORDERED: hydrALAZINE 20 MG/ML VIAL SLOW IVP PRN (12:47)
[2022-03-07] MEDS ORDERED: Cepastat Lozenges 1 LOZ PO PRN (12:47)
[2022-03-07] MEDS ORDERED: tiZANidine HCl 4 MG TAB PO PRN (12:49)
[2022-03-07] MEDS ORDERED: Albuterol 200 PUFF (6.7GM INHALER) INH PRN (12:49)
[2022-03-07] MEDS: Lactated Ringer's 1,000 ML IV SCH (18:36)
[2022-03-07] MEDS: cefTRIAXone\\ROCEPHIN 1 GM in Sodium Chloride 0.9% 100 ML IVPB SCH (22:18)
[2022-03-07] MEDS: rOPINIRole HCl 1 MG TAB PO SCH (22:18)
[2022-03-07] MEDS: Transdermal Patch Removal TOP SCH (22:19)
[2022-03-08] MEDS: Lactated Ringer's 1,000 ML IV SCH ×2 (03:27→18:08)
[2022-03-08] MEDS: traMADol HCl 50 MG TAB PO PRN (04:03)
[2022-03-08 06:54] LABS: #Lymphocytes 1.5 thou/uL (1.20-3.40); #Monocytes 0.5 thou/uL (0.11-0.59); #Neutrophils 3.6 thou/uL (1.40-6.50); %Basophils 0.1 % (0.0-1.0); %Eosinophils 0.2 % (0.0-10.0); %Lymphocytes 26.5 % (21.0-51.0); %Monocytes 8.5 % (0.0-10.0); %Neutrophils 64.8 % (42.0-75.0); Hemoglobin 9.1 g/dL (12.0-16.0); Mean Corpuscular HGB CONC 33.3 g/dL (32.0-36.0); Mean Corpuscular Hemoglobin 30.4 pg (27.0-31.0); Mean Corpuscular Volume 91.4 fL (78.0-98.0); Mean Platelet Volume 7.5 fL (7.4-10.4); Platelet Count 453 thou/uL (130-400); White Blood Cell (WBC) Count 5.6 thou/uL (4.8-10.8)
[2022-03-08 07:08] LABS: Anion Gap 14 mmol/L (10-20); BUN (Urea Nitrogen) 7 mg/dL (9.8-20.1); Calc. Creatinine Clearance 46 mL/min (70-130); Calcium 8.6 mg/dL (7.8-10.44); Carbon Dioxide 19 mmol/L (23-31); Chloride 104 mmol/L (98-107); Estimated GFR 97; Glucose 169 mg/dL (80-115); Sodium 134 mmol/L (136-145)
[2022-03-08 07:12] LABS: Potassium 2.8 mmol/L (3.5-5.1)
[2022-03-08] MEDS ORDERED: Potassium Chloride 20 MEQ TAB PO SCH (07:30)
[2022-03-08] MEDS: Losartan 25 MG TAB PO SCH (09:28)
[2022-03-08] MEDS: Amlodipine 10 MG TAB PO SCH (09:28)
[2022-03-08] MEDS: cloNIDine 0.1 MG TAB PO SCH (09:28)
[2022-03-08] MEDS: Lidocaine 5% Patch TD SCH (09:28)
[2022-03-08] MEDS: Ferrous Sulfate 325 MG TAB PO SCH (09:28)
[2022-03-08] MEDS: Enoxaparin Sodium 40 MG/0.4 ML SYRINGE SC SCH (09:29)
[2022-03-08] MEDS: Potassium Chloride 20 MEQ TAB PO SCH ×2 (16:01→18:08)
[2022-03-08 17:13] LABS: Anion Gap 14 mmol/L (10-20); BUN (Urea Nitrogen) 9 mg/dL (9.8-20.1); Calc. Creatinine Clearance 45 mL/min (70-130); Calcium 8.4 mg/dL (7.8-10.44); Carbon Dioxide 15 mmol/L (23-31); Chloride 109 mmol/L (98-107); Estimated GFR 97; Glucose 146 mg/dL (80-115); Potassium 3.3 mmol/L (3.5-5.1); Sodium 135 mmol/L (136-145)
[2022-03-08] MEDS: cefTRIAXone\\ROCEPHIN 1 GM in Sodium Chloride 0.9% 100 ML IVPB SCH (21:44)
[2022-03-08] MEDS: rOPINIRole HCl 1 MG TAB PO SCH (21:45)
[2022-03-08] MEDS: Transdermal Patch Removal TOP SCH (22:02)
[2022-03-09] MEDS: Acetaminophen 325 MG TAB PO PRN ×2 (00:40→06:14)
[2022-03-09] MEDS: traMADol HCl 50 MG TAB PO PRN (00:41)
[2022-03-09] MEDS: Lactated Ringer's 1,000 ML IV SCH (06:01)
[2022-03-09 06:48] LABS: #Monocytes 0.6 thou/uL (0.11-0.59); #Neutrophils 3.3 thou/uL (1.40-6.50); %Basophils 0.3 % (0.0-1.0); %Eosinophils 0.5 % (0.0-10.0); %Lymphocytes 33.9 % (21.0-51.0); %Monocytes 9.6 % (0.0-10.0); %Neutrophils 55.8 % (42.0-75.0); Hemoglobin 8.8 g/dL (12.0-16.0); Mean Corpuscular HGB CONC 31.1 g/dL (32.0-36.0); Mean Corpuscular Volume 96.3 fL (78.0-98.0); Mean Platelet Volume 7.2 fL (7.4-10.4); Platelet Count 391 thou/uL (130-400); RBC Distribution Width 13.4 % (11.5-14.5); Red Blood Cell (RBC) Count 2.92 mill/uL (4.20-5.40); White Blood Cell (WBC) Count 5.9 thou/uL (4.8-10.8)
[2022-03-09 07:02] LABS: Anion Gap 13 mmol/L (10-20); BUN (Urea Nitrogen) 7 mg/dL (9.8-20.1); Calc. Creatinine Clearance 48 mL/min (70-130); Carbon Dioxide 16 mmol/L (23-31); Chloride 106 mmol/L (98-107); Estimated GFR 98; Glucose 114 mg/dL (80-115); Potassium 3.8 mmol/L (3.5-5.1); Sodium 131 mmol/L (136-145)
[2022-03-09 07:34] VITALS: BP 162/92; TEMP 98.9
[2022-03-09] MEDS: Enoxaparin Sodium 40 MG/0.4 ML SYRINGE SC SCH (08:47)
[2022-03-09] MEDS: Amlodipine 10 MG TAB PO SCH (08:48)
[2022-03-09] MEDS: Lidocaine 5% Patch TD SCH (08:48)
[2022-03-09] MEDS: Losartan 25 MG TAB PO SCH (08:48)
[2022-03-09] MEDS: Ferrous Sulfate 325 MG TAB PO SCH (08:48)
[2022-03-09] MEDS: cloNIDine 0.1 MG TAB PO SCH (08:48)
== END 2022-03-09 10:08 | disposition home or self-care (01) | DRG 640 ==
LOC: ERS 17:26 → SURG A 21:15 → OBSVTOIN 03-08 09:07
PROVIDERS: ADMIT Internal Medicine; ATTEND Internal Medicine
PROC: 8E0ZXY6 Isolation (ICD-10-PCS; principal; 2022-03-08)
DX: E87.6 Hypokalemia (principal); U07.1 COVID-19; I10 Essential (primary) hypertension; E11.9 Type 2 diabetes mellitus without complications; N30.90 Cystitis, unspecified without hematuria; E86.0 Dehydration; M19.90 Unspecified osteoarthritis, unspecified site; G25.81 Restless legs syndrome; B96.20 Unspecified Escherichia coli [E. coli] as the cause of diseases classified elsewhere; Z88.1 Allergy status to other antibiotic agents; Z88.5 Allergy status to narcotic agent; Z79.899 Other long term (current) drug therapy; Z79.84 Long term (current) use of oral hypoglycemic drugs; Z90.710 Acquired absence of both cervix and uterus; Z90.49 Acquired absence of other specified parts of digestive tract; Z83.3 Family history of diabetes mellitus
CPT/HCPCS: 36415; 51701; 71045; 72070; 72100; 74177; 80048; 80053; 81003; 81015; 83735; 84484; 85025; 87077; 87086; 87186; 93005; 96361; 96365; 96375; 96376; G0378; J0360; J0696; J1650; J3490; J7050; J7120; Q9967

== ENCOUNTER 2022-03-18 11:27 | Emergency (ER) | payer MEDICARE ==
[2022-03-18] MEDS ORDERED: Ondansetron PF 4 MG/2 ML Vial ONE (12:21)
[2022-03-18 12:35] LABS: #Monocytes 0.5 thou/uL (0.11-0.59); %Basophils 0.3 % (0.0-1.0); %Eosinophils 0.5 % (0.0-10.0); %Lymphocytes 18.5 % (21.0-51.0); %Monocytes 9.6 % (0.0-10.0); %Neutrophils 71.1 % (42.0-75.0); Hemoglobin 10.6 g/dL (12.0-16.0); Mean Corpuscular HGB CONC 33.5 g/dL (32.0-36.0); Mean Corpuscular Hemoglobin 30.7 pg (27.0-31.0); Mean Corpuscular Volume 91.6 fL (78.0-98.0); Mean Platelet Volume 7.4 fL (7.4-10.4); Platelet Count 324 thou/uL (130-400); RBC Distribution Width 13.5 % (11.5-14.5); Red Blood Cell (RBC) Count 3.46 mill/uL (4.20-5.40); White Blood Cell (WBC) Count 5.6 thou/uL (4.8-10.8)
[2022-03-18 12:59] LABS: ALT (SGPT) 49 U/L (8-55); AST (SGOT) 40 U/L (5-34); Albumin 3.9 g/dL (3.4-4.8); Alkaline Phosphatase 104 U/L (40-110); Anion Gap 12 mmol/L (10-20); BUN (Urea Nitrogen) 19 mg/dL (9.8-20.1); Bilirubin, Total 0.5 mg/dL (0.2-1.2); Calc. Creatinine Clearance 0 mL/min (70-130); Calcium 9.3 mg/dL (7.8-10.44); Carbon Dioxide 29 mmol/L (23-31); Chloride 96 mmol/L (98-107); Estimated GFR 57; Globulin 3.3 g/dL (2.4-3.5); Glucose 161 mg/dL (80-115); Lipase 8 U/L (8-78); Protein, Total 7.2 g/dL (5.8-8.1); Sodium 134 mmol/L (136-145)
[2022-03-18] MEDS ORDERED: Potassium Chloride 20 MEQ TAB ONE (14:27)
[2022-03-18] MEDS ORDERED: Potassium Chloride 20 MEQ/100 ML PREMIX BAG ONE (14:27)
[2022-03-18 15:41] LABS: Lactic Acid 1.1 mmol/L (0.5-2.2)
== END 2022-03-18 16:40 | disposition home or self-care (01) ==
LOC: ERS 11:27
DX: E87.6 Hypokalemia (principal); M62.81 Muscle weakness (generalized); E11.40 Type 2 diabetes mellitus with diabetic neuropathy, unspecified; I10 Essential (primary) hypertension; M81.0 Age-related osteoporosis without current pathological fracture; Z79.899 Other long term (current) drug therapy; Z79.84 Long term (current) use of oral hypoglycemic drugs
CPT/HCPCS: 36415; 74177; 80053; 83605; 83690; 83880; 84484; 85025; 93005; 96374; 96375; J2405; J3480; Q9967

== ENCOUNTER 2022-04-18 08:59 | Emergency (ER) | payer MEDICARE, OTHER ==
[2022-04-18 09:46] LABS: #Lymphocytes 1.3 thou/uL (1.20-3.40); #Monocytes 0.3 thou/uL (0.11-0.59); #Neutrophils 5.4 thou/uL (1.40-6.50); %Basophils 0.2 % (0.0-1.0); %Eosinophils 0.1 % (0.0-10.0); %Lymphocytes 18.7 % (21.0-51.0); %Monocytes 3.7 % (0.0-10.0); %Neutrophils 77.4 % (42.0-75.0); Hemoglobin 10.9 g/dL (12.0-16.0); Mean Corpuscular Hemoglobin 31.2 pg (27.0-31.0); Mean Corpuscular Volume 94.7 fL (78.0-98.0); Mean Platelet Volume 7.8 fL (7.4-10.4); Platelet Count 434 thou/uL (130-400); RBC Distribution Width 12.8 % (11.5-14.5); Red Blood Cell (RBC) Count 3.49 mill/uL (4.20-5.40)
[2022-04-18 09:58] LABS: Prothrombin Time 13.5 sec (12.0-14.7)
[2022-04-18] MEDS ORDERED: Acetaminophen 325 MG TAB ONE ×2 (09:58)
[2022-04-18 10:11] LABS: ALT (SGPT) 39 U/L (8-55); AST (SGOT) 56 U/L (5-34); Albumin 3.8 g/dL (3.4-4.8); Alkaline Phosphatase 146 U/L (40-110); Anion Gap 19 mmol/L (10-20); BUN (Urea Nitrogen) 14 mg/dL (9.8-20.1); Bilirubin, Total 0.6 mg/dL (0.2-1.2); Calc. Creatinine Clearance 0 mL/min (70-130); Calcium 8.2 mg/dL (7.8-10.44); Carbon Dioxide 20 mmol/L (23-31); Chloride 96 mmol/L (98-107); Estimated GFR 74; Glucose 95 mg/dL (80-115); Protein, Total 7.8 g/dL (5.8-8.1); Sodium 131 mmol/L (136-145)
[2022-04-18] MEDS ORDERED: Amlodipine 5 MG TAB ONE ×2 (10:53→10:54)
[2022-04-18] MEDS ORDERED: cloNIDine 0.1 MG TAB ONE (10:53)
[2022-04-18 13:33] LABS: Lactic Acid 0.9 mmol/L (0.5-2.2)
[2022-04-18 14:25] LABS: Bilirubin Negative (Negative); Blood, Urine Negative (Negative); Clarity Clear (Clear); Glucose, Urine (Dipstick) Normal (Negative); Ketone, Urine 20 mg/dL (Negative); Leukocyte Negative Leu/uL (Negative); Nitrite Negative (Negative); Protein, Urine (Dipstick) 10 mg/dL (Neg-Trace); Specific Gravity, Urine 1.011 (1.002-1.036); Urobilinogen Normal mg/dL (Less than 2); pH, Urine 6.5 (5.0-9.0)
== END 2022-04-18 16:20 | disposition home or self-care (01) ==
LOC: ERS 08:59
DX: R53.1 Weakness (principal); I10 Essential (primary) hypertension; E11.40 Type 2 diabetes mellitus with diabetic neuropathy, unspecified
CPT/HCPCS: 36415; 36416; 71045; 80053; 81003; 83605; 84484; 85025; 85610; 85730; 87040; 87086; 93005; 94760; 96360

== ENCOUNTER 2022-04-23 12:52 | Emergency (ER) | payer OTHER ==
[2022-04-23 13:24] LABS: #Lymphocytes 1.2 thou/uL (1.20-3.40); #Monocytes 0.5 thou/uL (0.11-0.59); #Neutrophils 6.1 thou/uL (1.40-6.50); %Basophils 0.1 % (0.0-1.0); %Eosinophils 0.1 % (0.0-10.0); %Lymphocytes 15.8 % (21.0-51.0); %Monocytes 5.9 % (0.0-10.0); %Neutrophils 78.1 % (42.0-75.0); Hemoglobin 11.1 g/dL (12.0-16.0); Mean Corpuscular HGB CONC 33.2 g/dL (32.0-36.0); Mean Corpuscular Hemoglobin 30.9 pg (27.0-31.0); Mean Corpuscular Volume 93.1 fL (78.0-98.0); Mean Platelet Volume 7.3 fL (7.4-10.4); Platelet Count 468 thou/uL (130-400); RBC Distribution Width 12.6 % (11.5-14.5); White Blood Cell (WBC) Count 7.8 thou/uL (4.8-10.8)
[2022-04-23 13:52] LABS: ALT (SGPT) 38 U/L (8-55); AST (SGOT) 61 U/L (5-34); Albumin 3.9 g/dL (3.4-4.8); Alkaline Phosphatase 145 U/L (40-110); Anion Gap 16 mmol/L (10-20); BUN (Urea Nitrogen) 15 mg/dL (9.8-20.1); Bilirubin, Total 0.5 mg/dL (0.2-1.2); CK (CPK) 23 U/L (29-168); Calc. Creatinine Clearance 0 mL/min (70-130); Calcium 8.8 mg/dL (7.8-10.44); Carbon Dioxide 21 mmol/L (23-31); Chloride 98 mmol/L (98-107); Estimated GFR 78; Globulin 3.2 g/dL (2.4-3.5); Glucose 168 mg/dL (80-115); Potassium 3.6 mmol/L (3.5-5.1); Protein, Total 7.1 g/dL (5.8-8.1); Sodium 131 mmol/L (136-145)
== END 2022-04-23 15:19 | disposition left against medical advice (07) ==
LOC: ERS 12:52
DX: Z53.21 Procedure and treatment not carried out due to patient leaving prior to being seen by health care provider (principal)
CPT/HCPCS: 36415; 80053; 82550; 84484; 85025; 93005; 94760

== ENCOUNTER 2022-08-27 02:00 | Inpatient (IN) | payer OTHER ==
[2022-08-27] MEDS ORDERED: Lidocaine 1% w/Epinephrine 1:100K 20 ML VIAL ONE (02:35)
[2022-08-27 02:54] LABS: #Eosinphils 0.1 thou/uL (0.0-0.7); #Lymphocytes 1.6 thou/uL (1.20-3.40); #Monocytes 0.5 thou/uL (0.11-0.59); #Neutrophils 3.8 thou/uL (1.40-6.50); %Basophils 0.2 % (0.0-1.0); %Eosinophils 1.4 % (0.0-10.0); %Lymphocytes 27.2 % (21.0-51.0); %Monocytes 7.6 % (0.0-10.0); %Neutrophils 63.5 % (42.0-75.0); Hemoglobin 8.8 g/dL (12.0-16.0); Mean Corpuscular Hemoglobin 30.5 pg (27.0-31.0); Mean Corpuscular Volume 89.8 fl (78.0-98.0); Mean Platelet Volume 7.8 fL (7.4-10.4); Platelet Count 290 10x3/uL (130-400); RBC Distribution Width 12.4 % (11.5-14.5); Red Blood Cell (RBC) Count 2.88 mill/uL (4.20-5.40)
[2022-08-27 03:12] LABS: ALT (SGPT) 34 U/L (8-55); AST (SGOT) 28 U/L (5-34); Albumin 3.8 g/dL (3.4-4.8); Alkaline Phosphatase 72 U/L (40-110); Anion Gap 20 mmol/L (10-20); BUN (Urea Nitrogen) 40 mg/dL (9.8-20.1); Bilirubin, Total 0.4 mg/dL (0.2-1.2); Calc. Creatinine Clearance 0 mL/min (70-130); Calcium 9.1 mg/dL (7.8-10.44); Carbon Dioxide 14 mmol/L (23-31); Chloride 103 mmol/L (98-107); Estimated GFR 23; Globulin 3.1 g/dL (2.4-3.5); Glucose 207 mg/dL (80-115); Potassium 4.1 mmol/L (3.5-5.1); Protein, Total 6.9 g/dL (5.8-8.1); Sodium 133 mmol/L (136-145)
[2022-08-27 03:28] LABS: CKMB 1.7 ng/mL (0-6.6)
[2022-08-27 04:26] LABS: SARS-CoV-2 NAA Rapid Test Not Detected (NotDetected)
[2022-08-27 05:41] LABS: Bacteria/HPF 3+ HPF (None Seen); Bilirubin Negative (Negative); Blood, Urine Negative (Negative); Clarity Turbid (Clear); Glucose, Urine (Dipstick) Normal (Negative); Ketone, Urine 10 mg/dL (Negative); Leukocyte 500 Leu/uL (Negative); Nitrite Negative (Negative); Protein, Urine (Dipstick) 50 mg/dL (Neg-Trace); Specific Gravity, Urine 1.021 (1.002-1.036); Squamous Epithelial 0-3 HPF (0-3); Urobilinogen Normal mg/dL (Less than 2); WBC/HPF Greater than 50 HPF (0-3)
[2022-08-27] MEDS ORDERED: cefTRIAXone\\ROCEPHIN 2 GM VIAL ONE (06:16)
[2022-08-27] MEDS ORDERED: Ondansetron ODT 4 MG TAB PO PRN (07:35)
[2022-08-27] MEDS ORDERED: Ondansetron PF 4 MG/2 ML Vial IVP PRN (07:35)
[2022-08-27] MEDS ORDERED: Dextrose 50% Abboject 50 ML SYRINGE SLOW IVP PRN (07:38)
[2022-08-27] MEDS ORDERED: Dextrose 5% in Water 1,000 ML IV PRN (07:38)
[2022-08-27] MEDS ORDERED: HumaLOG 300 UNITS/3 ML VIAL SC PRN (07:38)
[2022-08-27 08:16] LABS: Troponin I 0.024 ng/mL (< 0.028)
[2022-08-27] MEDS: Sodium Chloride 0.9% 1,000 ML IV SCH ×2 (08:23→20:58)
[2022-08-27] MEDS: cefTRIAXone\\ROCEPHIN 1 GM in Sodium Chloride 0.9% 100 ML IVPB SCH (09:58)
[2022-08-27] MEDS: Acetaminophen 325 MG TAB PO PRN (11:28)
[2022-08-27] MEDS ORDERED: Acetaminophen 325 MG TAB ONE (11:28)
[2022-08-27 11:29] LABS: Troponin I 0.018 ng/mL (< 0.028)
[2022-08-27] MEDS: HumaLOG 300 UNITS/3 ML VIAL SC PRN ×2 (11:40→16:27)
[2022-08-27] MEDS ORDERED: HumaLOG 300 UNITS/3 ML VIAL ONE (11:41)
[2022-08-27] MEDS ORDERED: HYDROcodone/Acetaminophen 5/325 mg Tablet PO SCH (20:45)
[2022-08-27 21:20] VITALS: BMI 18.6
[2022-08-27] MEDS ORDERED: rOPINIRole HCl 1 MG TAB PO SCH (21:45)
[2022-08-27] MEDS ORDERED: tiZANidine HCl 4 MG TAB PO SCH (21:45)
[2022-08-28 04:59] LABS: #Lymphocytes 1.4 thou/uL (1.20-3.40); #Monocytes 0.5 thou/uL (0.11-0.59); #Neutrophils 4.3 thou/uL (1.40-6.50); %Basophils 0.2 % (0.0-1.0); %Eosinophils 0.3 % (0.0-10.0); %Lymphocytes 21.9 % (21.0-51.0); %Monocytes 7.9 % (0.0-10.0); %Neutrophils 69.7 % (42.0-75.0); Hemoglobin 9.4 g/dL (12.0-16.0); Mean Corpuscular HGB CONC 34.5 g/dL (32.0-36.0); Mean Corpuscular Hemoglobin 31.1 pg (27.0-31.0); Mean Corpuscular Volume 90.1 fl (78.0-98.0); Mean Platelet Volume 7.8 fL (7.4-10.4); Platelet Count 308 10x3/uL (130-400); RBC Distribution Width 12.4 % (11.5-14.5); Red Blood Cell (RBC) Count 3.04 mill/uL (4.20-5.40); White Blood Cell (WBC) Count 6.2 10x3/uL (4.8-10.8)
[2022-08-28 05:23] LABS: Anion Gap 13 mmol/L (10-20); BUN (Urea Nitrogen) 25 mg/dL (9.8-20.1); Calc. Creatinine Clearance 36 mL/min (70-130); Calcium 8.2 mg/dL (7.8-10.44); Carbon Dioxide 17 mmol/L (23-31); Chloride 110 mmol/L (98-107); Estimated GFR 82; Glucose 175 mg/dL (80-115); Potassium 2.7 mmol/L (3.5-5.1); Sodium 137 mmol/L (136-145)
[2022-08-28] MEDS: Acetaminophen 325 MG TAB PO PRN ×2 (06:45→23:53)
[2022-08-28] MEDS ORDERED: Electrolyte Replacement Protocol 1 EACH FS SCH (07:45)
[2022-08-28] MEDS: Potassium Chloride 20 MEQ TAB PO SCH ×4 (08:23→22:04)
[2022-08-28] MEDS: cefTRIAXone\\ROCEPHIN 1 GM in Sodium Chloride 0.9% 100 ML IVPB SCH (08:24)
[2022-08-28] MEDS: Sodium Chloride 0.9% 1,000 ML IV SCH ×2 (10:40→23:53)
[2022-08-28] MEDS ORDERED: traMADol HCl 50 MG TAB PO PRN (11:06)
[2022-08-28 12:06] LABS: Anion Gap 14 mmol/L (10-20); BUN (Urea Nitrogen) 22 mg/dL (9.8-20.1); Calc. Creatinine Clearance 38 mL/min (70-130); Calcium 8.3 mg/dL (7.8-10.44); Carbon Dioxide 16 mmol/L (23-31); Chloride 109 mmol/L (98-107); Estimated GFR 89; Glucose 233 mg/dL (80-115); Potassium 2.7 mmol/L (3.5-5.1); Sodium 136 mmol/L (136-145)
[2022-08-28] MEDS: HumaLOG 300 UNITS/3 ML VIAL SC PRN (13:33)
[2022-08-28] MEDS ORDERED: Docusate 100 MG CAP PO PRN (17:25)
[2022-08-28] MEDS ORDERED: Pancrelipase DR 12,000 1 CAP PO SCH (17:30)
[2022-08-28] MEDS ORDERED: Potassium Chloride 10 MEQ/100 ML PREMIX BAG IVPB SCH (18:00)
[2022-08-28 18:53] LABS: Anion Gap 13 mmol/L (10-20); BUN (Urea Nitrogen) 17 mg/dL (9.8-20.1); Calc. Creatinine Clearance 32 mL/min (70-130); Calcium 8.4 mg/dL (7.8-10.44); Carbon Dioxide 17 mmol/L (23-31); Chloride 109 mmol/L (98-107); Estimated GFR 72; Glucose 243 mg/dL (80-115); Potassium 3.1 mmol/L (3.5-5.1); Sodium 136 mmol/L (136-145)
[2022-08-28] MEDS: traMADol HCl 50 MG TAB PO PRN (19:47)
[2022-08-28] MEDS: metFORMIN 500 MG TAB PO SCH (19:47)
[2022-08-29 04:58] LABS: #Eosinphils 0.1 thou/uL (0.0-0.7); #Lymphocytes 1.6 thou/uL (1.20-3.40); #Monocytes 0.4 thou/uL (0.11-0.59); #Neutrophils 4.2 thou/uL (1.40-6.50); %Basophils 0.2 % (0.0-1.0); %Eosinophils 0.9 % (0.0-10.0); %Lymphocytes 25.7 % (21.0-51.0); %Monocytes 6.7 % (0.0-10.0); %Neutrophils 66.6 % (42.0-75.0); Mean Corpuscular HGB CONC 33.2 g/dL (32.0-36.0); Mean Corpuscular Volume 90.5 fl (78.0-98.0); Mean Platelet Volume 7.7 fL (7.4-10.4); Platelet Count 368 10x3/uL (130-400); RBC Distribution Width 12.7 % (11.5-14.5); Red Blood Cell (RBC) Count 3.66 mill/uL (4.20-5.40); White Blood Cell (WBC) Count 6.3 10x3/uL (4.8-10.8)
[2022-08-29] MEDS: traMADol HCl 50 MG TAB PO PRN ×3 (05:27→23:59)
[2022-08-29 05:37] LABS: Anion Gap 14 mmol/L (10-20); BUN (Urea Nitrogen) 12 mg/dL (9.8-20.1); Calc. Creatinine Clearance 35 mL/min (70-130); Calcium 8.8 mg/dL (7.8-10.44); Carbon Dioxide 18 mmol/L (23-31); Chloride 113 mmol/L (98-107); Estimated GFR 81; Glucose 194 mg/dL (80-115); Potassium 5.6 mmol/L (3.5-5.1); Sodium 139 mmol/L (136-145)
[2022-08-29] MEDS: Lidocaine 5% Patch TD SCH (08:10)
[2022-08-29] MEDS: Pancrelipase DR 12,000 1 CAP PO SCH ×2 (08:10→11:32)
[2022-08-29] MEDS: cloNIDine 0.1 MG TAB PO SCH (08:10)
[2022-08-29] MEDS: metFORMIN 500 MG TAB PO SCH ×2 (08:10→20:43)
[2022-08-29] MEDS: cefTRIAXone\\ROCEPHIN 1 GM in Sodium Chloride 0.9% 100 ML IVPB SCH (08:12)
[2022-08-29 10:49] LABS: Anion Gap 14 mmol/L (10-20); BUN (Urea Nitrogen) 14 mg/dL (9.8-20.1); Calc. Creatinine Clearance 39 mL/min (70-130); Calcium 8.2 mg/dL (7.8-10.44); Carbon Dioxide 19 mmol/L (23-31); Chloride 111 mmol/L (98-107); Estimated GFR 92; Glucose 187 mg/dL (80-115); Potassium 4.7 mmol/L (3.5-5.1); Sodium 139 mmol/L (136-145)
[2022-08-29] MEDS: Acetaminophen 325 MG TAB PO PRN ×2 (11:33→20:42)
[2022-08-29] MEDS: Sodium Chloride 0.9% 1,000 ML IV SCH (11:35)
[2022-08-29] MEDS: Transdermal Patch Removal TOP SCH (20:43)
[2022-08-30] MEDS ORDERED: cloNIDine 0.1 MG TAB PO SCH (03:45)
[2022-08-30 05:37] LABS: #Eosinphils 0.1 thou/uL (0.0-0.7); #Lymphocytes 1.7 thou/uL (1.20-3.40); #Monocytes 0.4 thou/uL (0.11-0.59); #Neutrophils 3.2 thou/uL (1.40-6.50); %Basophils 0.7 % (0.0-1.0); %Eosinophils 1.5 % (0.0-10.0); %Lymphocytes 30.8 % (21.0-51.0); %Monocytes 7.1 % (0.0-10.0); Hemoglobin 9.8 g/dL (12.0-16.0); Mean Corpuscular HGB CONC 33.4 g/dL (32.0-36.0); Mean Corpuscular Hemoglobin 30.6 pg (27.0-31.0); Mean Corpuscular Volume 91.8 fl (78.0-98.0); Mean Platelet Volume 8.1 fL (7.4-10.4); Platelet Count 309 10x3/uL (130-400); RBC Distribution Width 12.8 % (11.5-14.5); Red Blood Cell (RBC) Count 3.21 mill/uL (4.20-5.40); White Blood Cell (WBC) Count 5.4 10x3/uL (4.8-10.8)
[2022-08-30 06:01] LABS: Anion Gap 11 mmol/L (10-20); BUN (Urea Nitrogen) 16 mg/dL (9.8-20.1); Calc. Creatinine Clearance 43 mL/min (70-130); Calcium 8.6 mg/dL (7.8-10.44); Carbon Dioxide 18 mmol/L (23-31); Chloride 113 mmol/L (98-107); Estimated GFR 96; Glucose 121 mg/dL (80-115); Potassium 4.4 mmol/L (3.5-5.1); Sodium 138 mmol/L (136-145)
[2022-08-30] MEDS: Acetaminophen 325 MG TAB PO PRN ×2 (06:27→20:58)
[2022-08-30] MEDS: Sodium Chloride 0.9% 1,000 ML IV SCH (06:28)
[2022-08-30] MEDS: cloNIDine 0.1 MG TAB PO SCH (08:10)
[2022-08-30] MEDS: cefTRIAXone\\ROCEPHIN 1 GM in Sodium Chloride 0.9% 100 ML IVPB SCH (08:11)
[2022-08-30] MEDS: Lidocaine 5% Patch TD SCH (08:11)
[2022-08-30] MEDS: metFORMIN 500 MG TAB PO SCH ×2 (08:11→20:58)
[2022-08-30] MEDS: traMADol HCl 50 MG TAB PO PRN (12:44)
[2022-08-30] MEDS: Amlodipine 10 MG TAB PO SCH (13:48)
[2022-08-30] MEDS: hydrALAZINE 25 MG TAB PO SCH ×3 (13:48→20:58)
[2022-08-30] MEDS: Losartan 25 MG TAB PO SCH (17:25)
[2022-08-30] MEDS: Cefdinir 300 MG CAP PO SCH (20:58)
[2022-08-30] MEDS ORDERED: Cefpodoxime 200 MG TAB PO SCH (21:00)
[2022-08-30] MEDS: Transdermal Patch Removal TOP SCH (22:35)
[2022-08-31 05:15] LABS: #Eosinphils 0.1 thou/uL (0.0-0.7); #Lymphocytes 1.6 thou/uL (1.20-3.40); #Monocytes 0.4 thou/uL (0.11-0.59); #Neutrophils 3.6 thou/uL (1.40-6.50); %Basophils 0.3 % (0.0-1.0); %Eosinophils 1.8 % (0.0-10.0); %Lymphocytes 28.3 % (21.0-51.0); %Monocytes 6.2 % (0.0-10.0); %Neutrophils 63.5 % (42.0-75.0); Mean Corpuscular HGB CONC 33.2 g/dL (32.0-36.0); Mean Corpuscular Volume 93.4 fl (78.0-98.0); Platelet Count 300 10x3/uL (130-400); Red Blood Cell (RBC) Count 3.22 mill/uL (4.20-5.40); White Blood Cell (WBC) Count 5.6 10x3/uL (4.8-10.8)
[2022-08-31 05:39] LABS: Anion Gap 13 mmol/L (10-20); BUN (Urea Nitrogen) 16 mg/dL (9.8-20.1); Calc. Creatinine Clearance 37 mL/min (70-130); Calcium 9.4 mg/dL (7.8-10.44); Carbon Dioxide 18 mmol/L (23-31); Chloride 112 mmol/L (98-107); Estimated GFR 87; Glucose 116 mg/dL (80-115); Potassium 4.8 mmol/L (3.5-5.1); Sodium 138 mmol/L (136-145)
[2022-08-31] MEDS: traMADol HCl 50 MG TAB PO PRN (07:19)
[2022-08-31] MEDS: hydrALAZINE 25 MG TAB PO SCH (09:05)
[2022-08-31] MEDS: Cefdinir 300 MG CAP PO SCH (09:05)
[2022-08-31] MEDS: Losartan 25 MG TAB PO SCH (09:06)
[2022-08-31] MEDS: Amlodipine 10 MG TAB PO SCH (09:07)
[2022-08-31] MEDS: metFORMIN 500 MG TAB PO SCH (09:07)
[2022-08-31] MEDS: Lidocaine 5% Patch TD SCH (09:07)
[2022-08-31] MEDS: Acetaminophen 325 MG TAB PO PRN ×2 (09:09→13:58)
[2022-08-31 11:50] VITALS: BP 160/84; TEMP 97.8
== END 2022-08-31 14:34 | disposition home or self-care (01) | DRG 690 ==
LOC: ERS 02:00 → ERHOLD 06:58 → NEURO 20:15
PROVIDERS: ADMIT Student in an Organized Health Care Education/Training Program; ATTEND Internal Medicine
DX: N39.0 Urinary tract infection, site not specified (principal); N17.9 Acute kidney failure, unspecified; E87.1 Hypo-osmolality and hyponatremia; E46 Unspecified protein-calorie malnutrition; Z68.1 Body mass index [BMI] 19.9 or less, adult; R64 Cachexia; W06.XXXA Fall from bed, initial encounter; S01.01XA Laceration without foreign body of scalp, initial encounter; I10 Essential (primary) hypertension; E11.40 Type 2 diabetes mellitus with diabetic neuropathy, unspecified; G25.81 Restless legs syndrome; E86.0 Dehydration; K27.9 Peptic ulcer, site unspecified, unspecified as acute or chronic, without hemorrhage or perforation; M81.0 Age-related osteoporosis without current pathological fracture; E11.65 Type 2 diabetes mellitus with hyperglycemia; B96.1 Klebsiella pneumoniae [K. pneumoniae] as the cause of diseases classified elsewhere; Z90.710 Acquired absence of both cervix and uterus; Z88.5 Allergy status to narcotic agent; Z88.1 Allergy status to other antibiotic agents; Z79.84 Long term (current) use of oral hypoglycemic drugs; Z79.899 Other long term (current) drug therapy; Z90.49 Acquired absence of other specified parts of digestive tract
CPT/HCPCS: 12004; 36415; 36416; 70450; 71045; 74177; 80048; 80053; 81003; 81015; 82533; 82553; 83605; 84484; 85025; 87040; 87077; 87086; 87186; 93005; 93880; 96365; J0696; J1815; J3480; J3490; J7050

== ENCOUNTER 2022-09-21 21:07 | Inpatient (IN) | payer OTHER ==
[2022-09-21 22:05] LABS: #Basophils 0.1 thou/uL (0.0-0.2); #Lymphocytes 0.9 thou/uL (1.20-3.40); #Monocytes 0.5 thou/uL (0.11-0.59); #Neutrophils 4.4 thou/uL (1.40-6.50); %Eosinophils 0.3 % (0.0-10.0); %Lymphocytes 15.6 % (21.0-51.0); %Monocytes 8.1 % (0.0-10.0); Hemoglobin 9.6 g/dL (12.0-16.0); Mean Corpuscular HGB CONC 34.6 g/dL (32.0-36.0); Mean Corpuscular Hemoglobin 31.7 pg (27.0-31.0); Mean Corpuscular Volume 91.4 fl (78.0-98.0); Mean Platelet Volume 8.3 fL (7.4-10.4); Platelet Count 303 10x3/uL (130-400); Red Blood Cell (RBC) Count 3.04 mill/uL (4.20-5.40)
[2022-09-21 22:14] LABS: PTT 25.7 sec (22.9-36.1); Prothrombin Time 13.9 sec (12.0-14.7)
[2022-09-21 22:19] LABS: ALT (SGPT) 19 U/L (8-55); AST (SGOT) 24 U/L (5-34); Albumin 3.4 g/dL (3.4-4.8); Alkaline Phosphatase 63 U/L (40-110); Anion Gap 15 mmol/L (10-20); BUN (Urea Nitrogen) 25 mg/dL (9.8-20.1); Bilirubin, Total 0.2 mg/dL (0.2-1.2); CK (CPK) 25 U/L (29-168); Calc. Creatinine Clearance 0 mL/min (70-130); Carbon Dioxide 14 mmol/L (23-31); Chloride 107 mmol/L (98-107); Estimated GFR 45; Globulin 2.7 g/dL (2.4-3.5); Glucose 194 mg/dL (80-115); Potassium 3.7 mmol/L (3.5-5.1); Protein, Total 6.1 g/dL (5.8-8.1); Sodium 132 mmol/L (136-145)
[2022-09-21] MEDS ORDERED: Ondansetron PF 4 MG/2 ML Vial ONE (22:42)
[2022-09-22 00:12] LABS: Bilirubin Negative (Negative); Blood, Urine Negative (Negative); Clarity Clear (Clear); Glucose, Urine (Dipstick) Normal (Negative); Ketone, Urine Negative (Negative); Leukocyte 75 Leu/uL (Negative); Nitrite Negative (Negative); Protein, Urine (Dipstick) 30 mg/dL (Neg-Trace); RBC/HPF 0-3 HPF (0-3); Specific Gravity, Urine 1.025 (1.002-1.036); Squamous Epithelial 0-3 HPF (0-3); Urobilinogen Normal mg/dL (Less than 2); pH, Urine 6.5 (5.0-9.0)
[2022-09-22 00:13] LABS: Bacteria/HPF 1+ HPF (None Seen)
[2022-09-22] MEDS ORDERED: cefTRIAXone\\ROCEPHIN 2 GM VIAL ONE (00:29)
[2022-09-22 01:15] LABS: Lactic Acid 1.6 mmol/L (0.5-2.2)
[2022-09-22] MEDS ORDERED: Ondansetron PF 4 MG/2 ML Vial IVP PRN (01:23)
[2022-09-22] MEDS ORDERED: HumaLOG 300 UNITS/3 ML VIAL SC PRN (01:23)
[2022-09-22] MEDS ORDERED: Ondansetron ODT 4 MG TAB PO PRN (01:23)
[2022-09-22] MEDS ORDERED: Dextrose 50% Abboject 50 ML SYRINGE SLOW IVP PRN (01:23)
[2022-09-22] MEDS ORDERED: Dextrose 5% in Water 1,000 ML IV PRN (01:23)
[2022-09-22] MEDS ORDERED: Lactated Ringer's 1,000 ML IV SCH (01:30)
[2022-09-22 02:07] LABS: Magnesium 1.6 mg/dL (1.6-2.6); Phosphorus 3.2 mg/dL (2.3-4.7)
[2022-09-22 02:11] LABS: Troponin I 0.012 ng/mL (< 0.028)
[2022-09-22] MEDS ORDERED: cloNIDine 0.1 MG TAB PO SCH (02:45)
[2022-09-22] MEDS ORDERED: cloNIDine 0.1 MG TAB ONE (02:45)
[2022-09-22 05:00] LABS: #Eosinphils 0.1 thou/uL (0.0-0.7); #Lymphocytes 1.6 thou/uL (1.20-3.40); #Monocytes 0.7 thou/uL (0.11-0.59); #Neutrophils 5.3 thou/uL (1.40-6.50); %Basophils 0.5 % (0.0-1.0); %Eosinophils 0.7 % (0.0-10.0); %Lymphocytes 20.6 % (21.0-51.0); %Monocytes 8.5 % (0.0-10.0); %Neutrophils 69.8 % (42.0-75.0); Hemoglobin 9.6 g/dL (12.0-16.0); Mean Corpuscular HGB CONC 33.9 g/dL (32.0-36.0); Mean Corpuscular Hemoglobin 31.2 pg (27.0-31.0); Mean Platelet Volume 7.5 fL (7.4-10.4); Platelet Count 326 10x3/uL (130-400); Red Blood Cell (RBC) Count 3.09 mill/uL (4.20-5.40); White Blood Cell (WBC) Count 7.6 10x3/uL (4.8-10.8)
[2022-09-22 05:11] LABS: SARS-CoV-2 NAA Rapid Test Not Detected (NotDetected)
[2022-09-22 05:18] LABS: Anion Gap 11 mmol/L (10-20); BUN (Urea Nitrogen) 18 mg/dL (9.8-20.1); Calc. Creatinine Clearance 0 mL/min (70-130); Calcium 7.5 mg/dL (7.8-10.44); Carbon Dioxide 13 mmol/L (23-31); Chloride 114 mmol/L (98-107); Estimated GFR 82; Glucose 115 mg/dL (80-115); Magnesium 1.5 mg/dL (1.6-2.6); Potassium 3.3 mmol/L (3.5-5.1); Sodium 135 mmol/L (136-145)
[2022-09-22 05:23] LABS: Troponin I 0.018 ng/mL (< 0.028)
[2022-09-22] MEDS ORDERED: Acetaminophen 325 MG TAB ONE (08:28)
[2022-09-22] MEDS: Acetaminophen 325 MG TAB PO PRN ×2 (08:30→22:35)
[2022-09-22] MEDS ORDERED: Magnesium 2 GM/50 ML BAG (IN WATER) ONE (10:58)
[2022-09-22] MEDS ORDERED: Potassium Chloride 20 MEQ TAB ONE (10:58)
[2022-09-22] MEDS ORDERED: Magnesium 2 GM/50 ML(in water) 2 GM in Premix Bag 1 BAG IVPB SCH (11:00)
[2022-09-22] MEDS ORDERED: Potassium Chloride 20 MEQ TAB PO SCH (11:00)
[2022-09-22] MEDS ORDERED: traMADol HCl 50 MG TAB PO PRN (17:10)
[2022-09-22] MEDS: traMADol HCl 50 MG TAB PO PRN ×2 (17:35→20:35)
[2022-09-23] MEDS ORDERED: traMADol HCl 50 MG TAB PO SCH (00:15)
[2022-09-23] MEDS ORDERED: cefTRIAXone\\ROCEPHIN 1 GM in Sodium Chloride 0.9% 100 ML IVPB SCH (00:30)
[2022-09-23] MEDS ORDERED: cloNIDine 0.1 MG TAB PO SCH (04:15)
[2022-09-23] MEDS: traMADol HCl 50 MG TAB PO PRN ×3 (04:57→23:09)
[2022-09-23 05:19] LABS: #Lymphocytes 1.6 thou/uL (1.20-3.40); #Monocytes 0.4 thou/uL (0.11-0.59); #Neutrophils 2.5 thou/uL (1.40-6.50); %Basophils 0.6 % (0.0-1.0); %Eosinophils 0.7 % (0.0-10.0); %Lymphocytes 34.5 % (21.0-51.0); %Monocytes 8.9 % (0.0-10.0); %Neutrophils 55.3 % (42.0-75.0); Hemoglobin 9.1 g/dL (12.0-16.0); Mean Corpuscular HGB CONC 33.2 g/dL (32.0-36.0); Mean Corpuscular Hemoglobin 30.4 pg (27.0-31.0); Mean Corpuscular Volume 91.7 fl (78.0-98.0); Mean Platelet Volume 7.7 fL (7.4-10.4); Platelet Count 332 10x3/uL (130-400); RBC Distribution Width 13.1 % (11.5-14.5); Red Blood Cell (RBC) Count 2.99 mill/uL (4.20-5.40); White Blood Cell (WBC) Count 4.5 10x3/uL (4.8-10.8)
[2022-09-23 05:33] LABS: Anion Gap 9 mmol/L (10-20); BUN (Urea Nitrogen) 12 mg/dL (9.8-20.1); Calc. Creatinine Clearance 39 mL/min (70-130); Calcium 8.2 mg/dL (7.8-10.44); Carbon Dioxide 17 mmol/L (23-31); Chloride 113 mmol/L (98-107); Estimated GFR 92; Glucose 160 mg/dL (80-115); Potassium 3.7 mmol/L (3.5-5.1); Sodium 135 mmol/L (136-145)
[2022-09-23] MEDS: Acetaminophen 325 MG TAB PO PRN ×2 (06:06→16:48)
[2022-09-23] MEDS: Losartan 25 MG TAB PO SCH ×2 (08:41→21:29)
[2022-09-23] MEDS: HumaLOG 300 UNITS/3 ML VIAL SC PRN ×2 (11:44→16:16)
[2022-09-23] MEDS ORDERED: hydrALAZINE 10 MG TAB PO SCH (15:45)
[2022-09-23 19:40] VITALS: BMI 18.6
[2022-09-23] MEDS ORDERED: rOPINIRole HCl 1 MG TAB PO SCH (21:00)
[2022-09-23] MEDS ORDERED: Mirtazapine 15 MG TAB PO SCH (21:00)
[2022-09-23] MEDS: metFORMIN 500 MG TAB PO SCH (21:29)
[2022-09-24 04:49] LABS: #Eosinphils 0.1 thou/uL (0.0-0.7); #Lymphocytes 2.6 thou/uL (1.20-3.40); #Monocytes 0.7 thou/uL (0.11-0.59); #Neutrophils 3.7 thou/uL (1.40-6.50); %Basophils 0.6 % (0.0-1.0); %Eosinophils 0.9 % (0.0-10.0); %Lymphocytes 36.6 % (21.0-51.0); %Monocytes 9.9 % (0.0-10.0); Hemoglobin 10.2 g/dL (12.0-16.0); Mean Corpuscular HGB CONC 34.3 g/dL (32.0-36.0); Mean Corpuscular Hemoglobin 31.3 pg (27.0-31.0); Mean Corpuscular Volume 91.1 fl (78.0-98.0); Mean Platelet Volume 7.6 fL (7.4-10.4); Platelet Count 356 10x3/uL (130-400); RBC Distribution Width 12.9 % (11.5-14.5); Red Blood Cell (RBC) Count 3.26 mill/uL (4.20-5.40); White Blood Cell (WBC) Count 7.2 10x3/uL (4.8-10.8)
[2022-09-24 05:12] LABS: Anion Gap 13 mmol/L (10-20); BUN (Urea Nitrogen) 16 mg/dL (9.8-20.1); Calc. Creatinine Clearance 41 mL/min (70-130); Calcium 8.5 mg/dL (7.8-10.44); Carbon Dioxide 14 mmol/L (23-31); Chloride 115 mmol/L (98-107); Estimated GFR 93; Glucose 118 mg/dL (80-115); Potassium 4.5 mmol/L (3.5-5.1); Sodium 137 mmol/L (136-145)
[2022-09-24] MEDS: traMADol HCl 50 MG TAB PO PRN (08:30)
[2022-09-24 08:39] LABS: Lactic Acid 1.8 mmol/L (0.5-2.2)
[2022-09-24] MEDS ORDERED: Amlodipine 5 MG TAB PO SCH (09:00)
[2022-09-24] MEDS: Losartan 25 MG TAB PO SCH (10:09)
[2022-09-24] MEDS: metFORMIN 500 MG TAB PO SCH (10:09)
[2022-09-24] MEDS: Acetaminophen 325 MG TAB PO PRN ×2 (13:02)
[2022-09-24] MEDS: HumaLOG 300 UNITS/3 ML VIAL SC PRN (13:05)
[2022-09-24 17:20] VITALS: TEMP 97.6
[2022-09-24 17:21] VITALS: BP 129/59
== END 2022-09-24 17:55 | disposition home or self-care (01) | DRG 312 ==
LOC: ERS 21:07 → ERHOLD 09-22 00:36 → 2NO 09-22 16:11 → OBSVTOIN 09-22 17:14
PROVIDERS: ADMIT Internal Medicine; ATTEND Internal Medicine
DX: I95.2 Hypotension due to drugs (principal); E87.20 Acidosis, unspecified; N17.9 Acute kidney failure, unspecified; R64 Cachexia; Z68.1 Body mass index [BMI] 19.9 or less, adult; Z20.822 Contact with and (suspected) exposure to COVID-19; I10 Essential (primary) hypertension; G25.81 Restless legs syndrome; E11.21 Type 2 diabetes mellitus with diabetic nephropathy; M81.0 Age-related osteoporosis without current pathological fracture; E86.0 Dehydration; I35.0 Nonrheumatic aortic (valve) stenosis; T46.5X5A Adverse effect of other antihypertensive drugs, initial encounter; T48.205A Adverse effect of unspecified drugs acting on muscles, initial encounter; Z79.84 Long term (current) use of oral hypoglycemic drugs; Z79.51 Long term (current) use of inhaled steroids; Z79.899 Other long term (current) drug therapy; Z90.49 Acquired absence of other specified parts of digestive tract; Z90.710 Acquired absence of both cervix and uterus; Z91.199 Patient's noncompliance with other medical treatment and regimen due to unspecified reason
CPT/HCPCS: 36415; 36416; 70450; 71045; 71275; 80048; 80053; 81003; 81015; 82550; 83605; 83735; 84100; 84484; 85025; 85610; 85730; 87040; 87086; 93005; 93010; 93306; 94760; G0378; J0696; J1815; J2405; J3475; J3490; J7120; Q9967; U0002

== ENCOUNTER 2022-09-28 13:44 | Inpatient (IN) | payer OTHER ==
[2022-09-28 15:08] LABS: #Lymphocytes 0.8 thou/uL (1.20-3.40); #Monocytes 0.3 thou/uL (0.11-0.59); %Basophils 0.7 % (0.0-1.0); %Eosinophils 0.6 % (0.0-10.0); %Lymphocytes 19.2 % (21.0-51.0); %Monocytes 7.5 % (0.0-10.0); Hemoglobin 8.1 g/dL (12.0-16.0); Mean Corpuscular HGB CONC 33.4 g/dL (32.0-36.0); Mean Corpuscular Hemoglobin 30.9 pg (27.0-31.0); Mean Corpuscular Volume 92.4 fl (78.0-98.0); Mean Platelet Volume 7.4 fL (7.4-10.4); Platelet Count 369 10x3/uL (130-400); Red Blood Cell (RBC) Count 2.63 mill/uL (4.20-5.40); White Blood Cell (WBC) Count 4.1 10x3/uL (4.8-10.8)
[2022-09-28 18:48] LABS: ALT (SGPT) 30 U/L (8-55); AST (SGOT) 44 U/L (5-34); Albumin 3.2 g/dL (3.4-4.8); Alkaline Phosphatase 65 U/L (40-110); Anion Gap 11 mmol/L (10-20); BUN (Urea Nitrogen) 25 mg/dL (9.8-20.1); Bilirubin, Total Less than 0.2 mg/dL (0.2-1.2); Calc. Creatinine Clearance 0 mL/min (70-130); Calcium 8.2 mg/dL (7.8-10.44); Carbon Dioxide 15 mmol/L (23-31); Chloride 114 mmol/L (98-107); Estimated GFR 60; Globulin 2.7 g/dL (2.4-3.5); Glucose 301 mg/dL (80-115); Potassium 4.8 mmol/L (3.5-5.1); Protein, Total 5.9 g/dL (5.8-8.1); Sodium 135 mmol/L (136-145)
[2022-09-28] MEDS ORDERED: Ondansetron ODT 4 MG TAB PO PRN (21:44)
[2022-09-28] MEDS ORDERED: Dextrose 50% Abboject 50 ML SYRINGE SLOW IVP PRN (21:44)
[2022-09-28] MEDS ORDERED: Dextrose 5% in Water 1,000 ML IV PRN (21:44)
[2022-09-28] MEDS ORDERED: Senokot S 8.6-50 MG TAB PO PRN (21:44)
[2022-09-28] MEDS ORDERED: Acetaminophen 325 MG TAB ONE (22:11)
[2022-09-28] MEDS: Acetaminophen 325 MG TAB PO PRN (22:14)
[2022-09-29] MEDS ORDERED: Nitroglycerin 2% Ointment 1 INCH/1 GM Packet TOP SCH (02:15)
[2022-09-29] MEDS ORDERED: Nitroglycerin 2% Ointment 1 INCH/1 GM Packet ONE (02:33)
[2022-09-29] MEDS ORDERED: cloNIDine 0.1 MG TAB ONE (04:16)
[2022-09-29] MEDS: cloNIDine 0.1 MG TAB PO PRN ×2 (04:20→12:51)
[2022-09-29] MEDS ORDERED: Acetaminophen 325 MG TAB ONE (05:57)
[2022-09-29] MEDS: Acetaminophen 325 MG TAB PO PRN ×4 (06:00→23:05)
[2022-09-29] MEDS ORDERED: Famotidine 20 MG TAB ONE (08:34)
[2022-09-29] MEDS ORDERED: Amlodipine 5 MG TAB ONE (08:34)
[2022-09-29] MEDS: Amlodipine 5 MG TAB PO SCH ×2 (08:40→21:32)
[2022-09-29] MEDS ORDERED: Famotidine/PF 20 mg/2ml Vial SLOW IVP SCH (09:00)
[2022-09-29] MEDS ORDERED: metFORMIN 500 MG TAB PO SCH (09:00)
[2022-09-29] MEDS ORDERED: Famotidine 20 MG TAB PO SCH (09:00)
[2022-09-29] MEDS: Losartan 25 MG TAB PO SCH ×2 (09:00→21:32)
[2022-09-29] MEDS: Sodium Bicarbonate Tab 325 MG TAB PO SCH (09:01)
[2022-09-29 09:07] LABS: #Lymphocytes 1.6 thou/uL (1.20-3.40); #Monocytes 0.3 thou/uL (0.11-0.59); #Neutrophils 5.5 thou/uL (1.40-6.50); %Basophils 0.3 % (0.0-1.0); %Eosinophils 0.4 % (0.0-10.0); %Lymphocytes 21.5 % (21.0-51.0); %Monocytes 3.9 % (0.0-10.0); %Neutrophils 73.9 % (42.0-75.0); Hemoglobin 10.3 g/dL (12.0-16.0); Mean Corpuscular HGB CONC 33.2 g/dL (32.0-36.0); Mean Corpuscular Hemoglobin 30.3 pg (27.0-31.0); Mean Corpuscular Volume 91.3 fl (78.0-98.0); Mean Platelet Volume 7.5 fL (7.4-10.4); Platelet Count 461 10x3/uL (130-400); RBC Distribution Width 13.1 % (11.5-14.5); Red Blood Cell (RBC) Count 3.39 mill/uL (4.20-5.40); White Blood Cell (WBC) Count 7.4 10x3/uL (4.8-10.8)
[2022-09-29 10:07] LABS: Calcium 9.2 mg/dL (7.8-10.44); Chloride 111 mmol/L (98-107); Potassium 4.1 mmol/L (3.5-5.1); Sodium 137 mmol/L (136-145)
[2022-09-29 10:08] LABS: Glucose 242 mg/dL (80-115)
[2022-09-29 10:09] LABS: Anion Gap 13 mmol/L (10-20); Carbon Dioxide 17 mmol/L (23-31)
[2022-09-29] MEDS ORDERED: Ipratropium/Albuterol 3 ML NEB NEB PRN (10:10)
[2022-09-29 10:11] LABS: Calc. Creatinine Clearance 37 mL/min (70-130); Estimated GFR 89
[2022-09-29 10:12] LABS: BUN (Urea Nitrogen) 12 mg/dL (9.8-20.1)
[2022-09-29] MEDS ORDERED: HumaLOG 300 UNITS/3 ML VIAL SC PRN (12:11)
[2022-09-29 13:04] LABS: Magnesium 1.6 mg/dL (1.6-2.6); Phosphorus 3.2 mg/dL (2.3-4.7)
[2022-09-29 15:00] LABS: Bacteria/HPF None Seen HPF (None Seen); Bilirubin Negative (Negative); Blood, Urine Negative (Negative); CAUTI Indications for Culture Alt mental st,lethar; Clarity Clear (Clear); Glucose, Urine (Dipstick) Normal (Negative); Ketone, Urine Negative (Negative); Leukocyte Negative Leu/uL (Negative); Nitrite Negative (Negative); Protein, Urine (Dipstick) 20 mg/dL (Neg-Trace); RBC/HPF None Seen HPF (0-3); Specific Gravity, Urine 1.013 (1.002-1.036); Squamous Epithelial None Seen HPF (0-3); Urobilinogen Normal mg/dL (Less than 2); WBC/HPF None Seen HPF (0-3); pH, Urine 6.5 (5.0-9.0)
[2022-09-29 15:06] LABS: Urine Culture Reflex No No
[2022-09-29] MEDS: Mirtazapine 15 MG TAB PO SCH (21:33)
[2022-09-29] MEDS: rOPINIRole HCl 1 MG TAB PO SCH (21:33)
[2022-09-30] MEDS: Melatonin 3 MG TAB PO PRN ×2 (02:25→22:54)
[2022-09-30] MEDS: Acetaminophen 325 MG TAB PO PRN ×3 (04:21→21:46)
[2022-09-30] MEDS: cloNIDine 0.1 MG TAB PO PRN (04:22)
[2022-09-30 05:09] LABS: #Lymphocytes 2.1 thou/uL (1.20-3.40); #Monocytes 0.3 thou/uL (0.11-0.59); #Neutrophils 5.5 thou/uL (1.40-6.50); %Basophils 0.4 % (0.0-1.0); %Eosinophils 0.6 % (0.0-10.0); %Lymphocytes 26.1 % (21.0-51.0); %Monocytes 3.7 % (0.0-10.0); %Neutrophils 69.2 % (42.0-75.0); Hemoglobin 9.3 g/dL (12.0-16.0); Mean Corpuscular HGB CONC 33.5 g/dL (32.0-36.0); Mean Corpuscular Hemoglobin 30.8 pg (27.0-31.0); Mean Corpuscular Volume 91.9 fl (78.0-98.0); Mean Platelet Volume 7.3 fL (7.4-10.4); Platelet Count 437 10x3/uL (130-400); RBC Distribution Width 13.2 % (11.5-14.5); Red Blood Cell (RBC) Count 3.04 mill/uL (4.20-5.40); White Blood Cell (WBC) Count 7.9 10x3/uL (4.8-10.8)
[2022-09-30 05:31] LABS: Anion Gap 14 mmol/L (10-20); BUN (Urea Nitrogen) 12 mg/dL (9.8-20.1); Calc. Creatinine Clearance 38 mL/min (70-130); Calcium 8.9 mg/dL (7.8-10.44); Carbon Dioxide 14 mmol/L (23-31); Chloride 113 mmol/L (98-107); Estimated GFR 93; Glucose 122 mg/dL (80-115); Potassium 3.8 mmol/L (3.5-5.1); Sodium 137 mmol/L (136-145)
[2022-09-30] MEDS: Sodium Bicarbonate Tab 325 MG TAB PO SCH (08:43)
[2022-09-30] MEDS: Amlodipine 5 MG TAB PO SCH ×2 (08:44→21:48)
[2022-09-30] MEDS: Losartan 25 MG TAB PO SCH ×2 (08:44→21:47)
[2022-09-30] MEDS: rOPINIRole HCl 1 MG TAB PO SCH (21:43)
[2022-09-30] MEDS: Mirtazapine 15 MG TAB PO SCH (21:43)
[2022-09-30] MEDS: traMADol HCl 50 MG TAB PO PRN (22:51)
[2022-10-01 04:26] LABS: #Eosinphils 0.1 thou/uL (0.0-0.7); #Lymphocytes 2.2 thou/uL (1.20-3.40); #Monocytes 0.4 thou/uL (0.11-0.59); #Neutrophils 4.7 thou/uL (1.40-6.50); %Basophils 0.6 % (0.0-1.0); %Eosinophils 0.7 % (0.0-10.0); %Lymphocytes 30.1 % (21.0-51.0); %Monocytes 5.3 % (0.0-10.0); %Neutrophils 63.4 % (42.0-75.0); Hemoglobin 9.9 g/dL (12.0-16.0); Mean Corpuscular Hemoglobin 30.2 pg (27.0-31.0); Mean Corpuscular Volume 91.6 fl (78.0-98.0); Mean Platelet Volume 7.6 fL (7.4-10.4); Platelet Count 447 10x3/uL (130-400); RBC Distribution Width 13.2 % (11.5-14.5); Red Blood Cell (RBC) Count 3.27 mill/uL (4.20-5.40); White Blood Cell (WBC) Count 7.3 10x3/uL (4.8-10.8)
[2022-10-01] MEDS: traMADol HCl 50 MG TAB PO PRN ×3 (04:37→17:40)
[2022-10-01 04:50] LABS: Anion Gap 11 mmol/L (10-20); BUN (Urea Nitrogen) 26 mg/dL (9.8-20.1); Calc. Creatinine Clearance 38 mL/min (70-130); Calcium 9.6 mg/dL (7.8-10.44); Carbon Dioxide 20 mmol/L (23-31); Chloride 110 mmol/L (98-107); Estimated GFR 93; Glucose 117 mg/dL (80-115); Potassium 4.4 mmol/L (3.5-5.1); Sodium 137 mmol/L (136-145)
[2022-10-01] MEDS: cloNIDine 0.1 MG TAB PO PRN (05:05)
[2022-10-01] MEDS: Sodium Bicarbonate Tab 325 MG TAB PO SCH (08:44)
[2022-10-01] MEDS: Amlodipine 5 MG TAB PO SCH ×2 (08:44→20:30)
[2022-10-01] MEDS: Losartan 25 MG TAB PO SCH ×2 (08:44→20:30)
[2022-10-01] MEDS ORDERED: Pregabalin 50 MG CAP PO SCH (09:30)
[2022-10-01] MEDS ORDERED: Pregabalin 25 MG CAP PO SCH (09:45)
[2022-10-01] MEDS: Acetaminophen 325 MG TAB PO PRN ×2 (11:35→14:55)
[2022-10-01] MEDS: Pregabalin 25 MG CAP PO SCH (20:30)
[2022-10-01] MEDS: rOPINIRole HCl 1 MG TAB PO SCH (20:30)
[2022-10-01] MEDS: Mirtazapine 15 MG TAB PO SCH (20:30)
[2022-10-01] MEDS ORDERED: FLU VACC QS2022-23(65YR UP)/PF 240 MCG/0.7 ML SYRINGE IM ONE (23:00)
[2022-10-02] MEDS: traMADol HCl 50 MG TAB PO PRN ×2 (05:10→14:31)
[2022-10-02] MEDS: Sodium Bicarbonate Tab 325 MG TAB PO SCH (08:39)
[2022-10-02] MEDS: Pregabalin 25 MG CAP PO SCH ×2 (08:39→20:12)
[2022-10-02] MEDS: Losartan 25 MG TAB PO SCH ×2 (08:40→20:11)
[2022-10-02] MEDS: Amlodipine 5 MG TAB PO SCH ×2 (08:40→20:12)
[2022-10-02] MEDS: Acetaminophen 325 MG TAB PO PRN (10:39)
[2022-10-02] MEDS: metFORMIN 500 MG TAB PO SCH (16:43)
[2022-10-02] MEDS: rOPINIRole HCl 1 MG TAB PO SCH (20:12)
[2022-10-02] MEDS: Mirtazapine 15 MG TAB PO SCH (20:12)
[2022-10-02] MEDS: Melatonin 3 MG TAB PO PRN (21:03)
[2022-10-03] MEDS: HumaLOG 300 UNITS/3 ML VIAL SC PRN ×2 (06:14→17:07)
[2022-10-03] MEDS: traMADol HCl 50 MG TAB PO PRN ×2 (06:46→20:42)
[2022-10-03] MEDS: Pregabalin 25 MG CAP PO SCH ×2 (08:11→20:41)
[2022-10-03] MEDS: metFORMIN 500 MG TAB PO SCH ×2 (08:13→17:07)
[2022-10-03] MEDS: Sodium Bicarbonate Tab 325 MG TAB PO SCH (08:13)
[2022-10-03] MEDS: Amlodipine 5 MG TAB PO SCH ×2 (08:13→20:41)
[2022-10-03] MEDS: Losartan 25 MG TAB PO SCH ×2 (08:13→20:41)
[2022-10-03] MEDS: Acetaminophen 325 MG TAB PO PRN ×2 (11:14→19:15)
[2022-10-03] MEDS: Mirtazapine 15 MG TAB PO SCH (20:41)
[2022-10-03] MEDS: rOPINIRole HCl 1 MG TAB PO SCH (20:41)
[2022-10-03] MEDS: Melatonin 3 MG TAB PO PRN (20:41)
[2022-10-04] MEDS: Acetaminophen 325 MG TAB PO PRN ×2 (03:33→20:36)
[2022-10-04] MEDS: traMADol HCl 50 MG TAB PO PRN ×2 (07:21→16:48)
[2022-10-04] MEDS: Losartan 25 MG TAB PO SCH ×2 (09:39→20:35)
[2022-10-04] MEDS: Pregabalin 25 MG CAP PO SCH ×2 (09:40→20:35)
[2022-10-04] MEDS: metFORMIN 500 MG TAB PO SCH ×2 (09:40→16:48)
[2022-10-04] MEDS: Sodium Bicarbonate Tab 325 MG TAB PO SCH (09:40)
[2022-10-04] MEDS: Amlodipine 5 MG TAB PO SCH ×2 (09:40→20:36)
[2022-10-04] MEDS: Mirtazapine 15 MG TAB PO SCH (20:34)
[2022-10-04] MEDS: rOPINIRole HCl 1 MG TAB PO SCH (20:34)
[2022-10-05] MEDS: traMADol HCl 50 MG TAB PO PRN ×2 (00:10→09:31)
[2022-10-05] MEDS: Acetaminophen 325 MG TAB PO PRN ×2 (05:39→13:14)
[2022-10-05 08:43] LABS: #Basophils 0.1 thou/uL (0.0-0.2); #Lymphocytes 1.6 thou/uL (1.20-3.40); #Monocytes 0.3 thou/uL (0.11-0.59); #Neutrophils 2.9 thou/uL (1.40-6.50); %Eosinophils 0.9 % (0.0-10.0); %Lymphocytes 32.4 % (21.0-51.0); %Monocytes 6.7 % (0.0-10.0); Hemoglobin 9.5 g/dL (12.0-16.0); Mean Corpuscular HGB CONC 32.8 g/dL (32.0-36.0); Mean Corpuscular Volume 94.4 fl (78.0-98.0); Mean Platelet Volume 7.5 fL (7.4-10.4); Platelet Count 396 10x3/uL (130-400); RBC Distribution Width 13.2 % (11.5-14.5); Red Blood Cell (RBC) Count 3.06 mill/uL (4.20-5.40); White Blood Cell (WBC) Count 4.9 10x3/uL (4.8-10.8)
[2022-10-05 09:04] LABS: Anion Gap 14 mmol/L (10-20); BUN (Urea Nitrogen) 32 mg/dL (9.8-20.1); Calc. Creatinine Clearance 36 mL/min (70-130); Calcium 9.8 mg/dL (7.8-10.44); Carbon Dioxide 19 mmol/L (23-31); Chloride 110 mmol/L (98-107); Estimated GFR 82; Glucose 125 mg/dL (80-115); Potassium 4.7 mmol/L (3.5-5.1); Sodium 138 mmol/L (136-145)
[2022-10-05] MEDS: Amlodipine 5 MG TAB PO SCH (09:30)
[2022-10-05] MEDS: Losartan 25 MG TAB PO SCH (09:30)
[2022-10-05] MEDS: Sodium Bicarbonate Tab 325 MG TAB PO SCH (09:30)
[2022-10-05] MEDS: Pregabalin 25 MG CAP PO SCH (09:31)
[2022-10-05] MEDS: metFORMIN 500 MG TAB PO SCH (09:31)
[2022-10-05 13:42] VITALS: BMI 18.0
[2022-10-05 15:47] VITALS: BP 151/69; TEMP 97.9
== END 2022-10-05 15:45 | disposition home or self-care (01) | DRG 947 ==
LOC: ERS 13:44 → ERHOLD 20:06 → 2NO 09-29 11:49
PROVIDERS: ADMIT Internal Medicine; ATTEND Internal Medicine
DX: R53.1 Weakness (principal); E43 Unspecified severe protein-calorie malnutrition; Z68.1 Body mass index [BMI] 19.9 or less, adult; N17.9 Acute kidney failure, unspecified; R29.6 Repeated falls; E11.42 Type 2 diabetes mellitus with diabetic polyneuropathy; I10 Essential (primary) hypertension; Z20.822 Contact with and (suspected) exposure to COVID-19; M81.0 Age-related osteoporosis without current pathological fracture; R79.89 Other specified abnormal findings of blood chemistry; E86.0 Dehydration; J45.909 Unspecified asthma, uncomplicated; G25.81 Restless legs syndrome; Z91.81 History of falling; Z79.4 Long term (current) use of insulin; Z79.899 Other long term (current) drug therapy; Z79.84 Long term (current) use of oral hypoglycemic drugs; Z90.710 Acquired absence of both cervix and uterus; Z90.722 Acquired absence of ovaries, bilateral; Z90.49 Acquired absence of other specified parts of digestive tract
CPT/HCPCS: 36415; 36416; 70450; 71045; 72125; 80048; 80053; 81001; 83735; 83880; 84100; 84443; 84484; 85025; 93005; 96360; 96361; J1650; J1815; Q0162; U0003; U0005

== ENCOUNTER 2022-11-16 06:28 | Inpatient (IN) | payer MEDICARE, OTHER ==
[2022-11-16] MEDS ORDERED: NOREPINEPHRINE 8 MG/250 ML-D5W 0 ML ONE (06:42)
[2022-11-16] MEDS ORDERED: NOREPINEPHRINE 8 MG/250 ML-D5W 250 ML ONE (06:46)
[2022-11-16 07:28] LABS: #Lymphocytes 1.8 thou/uL (1.20-3.40); #Monocytes 0.5 thou/uL (0.11-0.59); #Neutrophils 4.3 thou/uL (1.40-6.50); %Basophils 0.7 % (0.0-1.0); %Eosinophils 0.3 % (0.0-10.0); %Lymphocytes 27.6 % (21.0-51.0); %Monocytes 6.9 % (0.0-10.0); %Neutrophils 64.5 % (42.0-75.0); Hemoglobin 9.3 g/dL (12.0-16.0); Mean Corpuscular Hemoglobin 29.3 pg (27.0-31.0); Mean Corpuscular Volume 88.8 fl (78.0-98.0); Mean Platelet Volume 7.7 fL (7.4-10.4); Platelet Count 351 10x3/uL (130-400); RBC Distribution Width 13.3 % (11.5-14.5); Red Blood Cell (RBC) Count 3.15 mill/uL (4.20-5.40); White Blood Cell (WBC) Count 6.7 10x3/uL (4.8-10.8)
[2022-11-16] MEDS ORDERED: VANCOMYCIN 750 MG/250 ML BAG 750 MG in Sodium Chloride 0.9% 250 ML 250 ML IVPB SCH (07:30)
[2022-11-16] MEDS ORDERED: Vancomycin HCl 750 MG in Sodium Chloride 0.9% 250 ML 250 ML IVPB SCH (07:30)
[2022-11-16 07:44] LABS: Analyzer IN Cardio ER; Base Excess -11.5 mEq/L (-2.0 to +3.0); Chloride (VBG) 109 mmol/L (98-106); Potassium (VBG) 3.55 mmol/L (3.70-5.30); Sodium 136.5 mmol/L (133-146); pH (venous) 7.34 (7.32-7.43)
[2022-11-16 07:47] LABS: Bacteria/HPF None Seen HPF (None Seen); Bilirubin Negative (Negative); Blood, Urine Negative (Negative); Clarity Clear (Clear); Glucose, Urine (Dipstick) 100 mg/dL (Negative); Ketone, Urine Negative (Negative); Leukocyte Negative Leu/uL (Negative); Nitrite Negative (Negative); Protein, Urine (Dipstick) 30 mg/dL (Neg-Trace); RBC/HPF None Seen HPF (0-3); Specific Gravity, Urine 1.007 (1.002-1.036); Squamous Epithelial None Seen HPF (0-3); Urobilinogen Normal mg/dL (Less than 2); WBC/HPF 0-3 HPF (0-3)
[2022-11-16 07:48] LABS: ALT (SGPT) 23 U/L (8-55); AST (SGOT) 28 U/L (5-34); Albumin 3.3 g/dL (3.4-4.8); Alkaline Phosphatase 60 U/L (40-110); Anion Gap 17 mmol/L (10-20); BUN (Urea Nitrogen) 19 mg/dL (9.8-20.1); Bilirubin, Total 0.3 mg/dL (0.2-1.2); Calc. Creatinine Clearance 0 mL/min (70-130); Calcium 7.6 mg/dL (7.8-10.44); Carbon Dioxide 11 mmol/L (23-31); Chloride 113 mmol/L (98-107); Estimated GFR 38; Globulin 2.9 g/dL (2.4-3.5); Glucose 239 mg/dL (80-115); Potassium 3.6 mmol/L (3.5-5.1); Protein, Total 6.2 g/dL (5.8-8.1); Sodium 137 mmol/L (136-145)
[2022-11-16 07:49] LABS: Acetaminophen Less than 10.0 mcg/mL (10.0-30.0); Alcohol Less than 10 mg/dL (Less than 10); Salicylate Less than 8.0 mg/dL (15.0-30.0)
[2022-11-16 07:50] LABS: Amphetamine Not Detected (NotDetected); Barbiturates Screen Not Detected (NotDetected); Benzodiazepine Screen Not Detected (NotDetected); Cocaine Metabolite Screen Not Detected (NotDetected); Methadone Not Detected (NotDetected); Methamphetamine Not Detected (NotDetected); Opiate Screen Not Detected (NotDetected); Oxycodone Screen Not Detected (NotDetected); Phencyclidine (PCP) Not Detected (NotDetected); THC/Cannabinoid Screen Not Detected (NotDetected); Tricyclic Screen Not Detected (NotDetected)
[2022-11-16 08:04] LABS: Free T4 (Free Thyroxine) 1.04 ng/dL (0.70-1.48); Thyroid Stimulating Hormone 2.4617 uIU/mL (0.35-4.94)
[2022-11-16 08:06] LABS: Actual Bicarbonate (HCO3v) 13 mEq/L (22-28)
[2022-11-16] MEDS ORDERED: Thiamine HCl 200 MG/2 ML VIAL SLOW IVP SCH (08:30)
[2022-11-16] MEDS ORDERED: Cefepime 2 GM VIAL ONE (08:48)
[2022-11-16] MEDS ORDERED: Calcium Carbonate 500 MG ChewTAB PO PRN (08:58)
[2022-11-16] MEDS ORDERED: Ondansetron PF 4 MG/2 ML Vial IVP PRN (08:58)
[2022-11-16] MEDS ORDERED: Senokot S 8.6-50 MG TAB PO PRN (08:58)
[2022-11-16] MEDS ORDERED: NOREPINEPHRINE 8 MG/250 ML-D5W 250 ML IVPB SCH (09:00)
[2022-11-16] MEDS ORDERED: Dextrose 5% in Water 1,000 ML IV PRN (09:01)
[2022-11-16] MEDS ORDERED: HumaLOG 300 UNITS/3 ML VIAL SC PRN (09:01)
[2022-11-16] MEDS ORDERED: Dextrose 50% Abboject 50 ML SYRINGE SLOW IVP PRN (09:01)
[2022-11-16] MEDS ORDERED: Iopamidol-370 76% 500 ML MDV (1 ML CHARGE) ONE (09:52)
[2022-11-16 10:36] LABS: Lactic Acid 1.5 mmol/L (0.5-2.2)
[2022-11-16] MEDS ORDERED: Sodium Bicarbonate 150 MEQ in Dextrose 5% in Water 1,000 ML IV SCH (11:00)
[2022-11-16] MEDS ORDERED: Pantoprazole 40 MG VIAL IVP SCH (12:00)
[2022-11-16] MEDS ORDERED: Amlodipine 10 MG TAB PO SCH (12:45)
[2022-11-16] MEDS ORDERED: niCARdipine 25 MG in Sodium Chloride 0.9% 250 ML 250 ML IVPB SCH (14:15)
[2022-11-16] MEDS: HumaLOG 300 UNITS/3 ML VIAL SC PRN (16:08)
[2022-11-16 17:24] LABS: Anion Gap 16 mmol/L (10-20); BUN (Urea Nitrogen) 14 mg/dL (9.8-20.1); Calc. Creatinine Clearance 21 mL/min (70-130); Calcium 7.8 mg/dL (7.8-10.44); Carbon Dioxide 21 mmol/L (23-31); Chloride 103 mmol/L (98-107); Estimated GFR 43; Glucose 309 mg/dL (80-115); Sodium 138 mmol/L (136-145)
[2022-11-16] MEDS ORDERED: Sodium Bicarbonate Tab 325 MG TAB PO SCH (17:30)
[2022-11-16 17:37] LABS: Potassium 2.2 mmol/L (3.5-5.1)
[2022-11-16] MEDS ORDERED: Potassium Bicarbonate/Cit Ac 20 MEQ TAB PO SCH ×2 (17:45→23:45)
[2022-11-16] MEDS ORDERED: Potassium Chloride 20 MEQ in Premix Bag 1 BAG IVPB SCH ×2 (17:45→23:45)
[2022-11-16] MEDS ORDERED: hydrALAZINE 20 MG/ML VIAL SLOW IVP PRN (18:16)
[2022-11-16] MEDS: Sodium Chloride 0.9% 1,000 ML IV SCH (18:17)
[2022-11-16] MEDS: Sodium Bicarbonate Tab 325 MG TAB PO SCH (20:31)
[2022-11-16] MEDS: Cefepime 1 GM in Sodium Chloride 0.9% 100 ML IVPB SCH (20:31)
[2022-11-16] MEDS: rOPINIRole HCl 1 MG TAB PO SCH (20:39)
[2022-11-16 22:30] LABS: Potassium 2.7 mmol/L (3.5-5.1)
[2022-11-16] MEDS: Acetaminophen 325 MG TAB PO PRN (22:30)
[2022-11-16] MEDS ORDERED: Magnesium 2 GM/50 ML(in water) 2 GM in Premix Bag 1 BAG IVPB SCH (23:45)
[2022-11-16] MEDS ORDERED: Magnesium Sulfate 2 GM in Sodium Chloride 0.9% 100 ML IVPB SCH (23:45)
[2022-11-17] MEDS ORDERED: Loperamide HCl 2 MG CAP PO PRN (00:29)
[2022-11-17 03:59] LABS: #Lymphocytes 1.2 thou/uL (1.20-3.40); #Monocytes 0.8 thou/uL (0.11-0.59); #Neutrophils 7.5 thou/uL (1.40-6.50); %Basophils 0.4 % (0.0-1.0); %Eosinophils 0.2 % (0.0-10.0); %Lymphocytes 12.8 % (21.0-51.0); %Monocytes 7.9 % (0.0-10.0); %Neutrophils 78.7 % (42.0-75.0); Hemoglobin 9.3 g/dL (12.0-16.0); Mean Corpuscular HGB CONC 33.9 g/dL (32.0-36.0); Mean Corpuscular Hemoglobin 29.9 pg (27.0-31.0); Mean Corpuscular Volume 88.1 fl (78.0-98.0); Mean Platelet Volume 7.5 fL (7.4-10.4); Platelet Count 372 10x3/uL (130-400); RBC Distribution Width 13.2 % (11.5-14.5); Red Blood Cell (RBC) Count 3.13 mill/uL (4.20-5.40); White Blood Cell (WBC) Count 9.5 10x3/uL (4.8-10.8)
[2022-11-17 04:12] LABS: Hemoglobin A1c 6.1 % (4.0-6.0)
[2022-11-17 04:21] LABS: ALT (SGPT) 21 U/L (8-55); AST (SGOT) 20 U/L (5-34); Albumin 3.7 g/dL (3.4-4.8); Alkaline Phosphatase 77 U/L (40-110); Anion Gap 15 mmol/L (10-20); BUN (Urea Nitrogen) 11 mg/dL (9.8-20.1); Bilirubin, Total 0.2 mg/dL (0.2-1.2); Calc. Creatinine Clearance 32 mL/min (70-130); Calcium 8.3 mg/dL (7.8-10.44); Carbon Dioxide 23 mmol/L (23-31); Chloride 104 mmol/L (98-107); Estimated GFR 72; Globulin 2.8 g/dL (2.4-3.5); Glucose 168 mg/dL (80-115); Magnesium 2.7 mg/dL (1.6-2.6); Potassium 3.8 mmol/L (3.5-5.1); Protein, Total 6.5 g/dL (5.8-8.1); Sodium 138 mmol/L (136-145)
[2022-11-17 04:22] LABS: Iron 24 ug/dL (50-170); Iron Binding Capacity, Total 473 mcg/dL (265-497)
[2022-11-17 04:24] LABS: Iron 26 ug/dL (50-170); Iron Binding Capacity, Total 464 mcg/dL (265-497)
[2022-11-17 04:29] LABS: Phosphorus 1.3 mg/dL (2.3-4.7)
[2022-11-17] MEDS: Sodium Chloride 0.9% 1,000 ML IV SCH (05:29)
[2022-11-17] MEDS ORDERED: VANCOMYCIN 750 MG/250 ML BAG 750 MG in Sodium Chloride 0.9% 250 ML 250 ML IVPB SCH (08:00)
[2022-11-17] MEDS ORDERED: Vancomycin HCl 750 MG in Sodium Chloride 0.9% 250 ML 250 ML IVPB SCH (08:00)
[2022-11-17] MEDS ORDERED: Potassium Phosphate 30 MMOL in Sodium Chloride 0.9% 250 ML 250 ML IVPB SCH (08:00)
[2022-11-17] MEDS: Cefepime 1 GM in Sodium Chloride 0.9% 100 ML IVPB SCH (08:07)
[2022-11-17] MEDS: Pantoprazole 40 MG VIAL IVP SCH (08:10)
[2022-11-17] MEDS ORDERED: Labetalol HCl 100 MG/20 ML VIAL SLOW IVP PRN (08:35)
[2022-11-17] MEDS: Amlodipine 10 MG TAB PO SCH (08:46)
[2022-11-17] MEDS ORDERED: Sodium Chloride 0.9% 1,000 ML IV SCH (09:00)
[2022-11-17] MEDS: Sodium Bicarbonate Tab 325 MG TAB PO SCH ×3 (10:36→20:01)
[2022-11-17] MEDS: Iron, Sodium Ferric Gluconate 250 MG in Sodium Chloride 0.9% 250 ML 250 ML IVPB SCH (10:51)
[2022-11-17] MEDS ORDERED: Ketorolac Tromethamine 30 MG/ML VIAL IVP SCH (11:00)
[2022-11-17] MEDS ORDERED: Carvedilol 6.25 MG TAB PO SCH (12:00)
[2022-11-17] MEDS ORDERED: diphenhydrAMINE 50 MG/ML VIAL ONE (13:01)
[2022-11-17] MEDS ORDERED: Ondansetron PF 4 MG/2 ML Vial ONE (13:01)
[2022-11-17] MEDS ORDERED: Succinylcholine Chloride 100 MG/5 ML SYRINGE FS ONE (13:01)
[2022-11-17] MEDS ORDERED: PROPOFOL 200 MG/20 ML VIAL ONE (13:01)
[2022-11-17 16:32] LABS: Anion Gap 17 mmol/L (10-20); BUN (Urea Nitrogen) 10 mg/dL (9.8-20.1); Calc. Creatinine Clearance 36 mL/min (70-130); Calcium 6.6 mg/dL (7.8-10.44); Carbon Dioxide 19 mmol/L (23-31); Chloride 111 mmol/L (98-107); Estimated GFR 77; Glucose 153 mg/dL (80-115); Magnesium 1.7 mg/dL (1.6-2.6); Phosphorus 5.9 mg/dL (2.3-4.7); Sodium 143 mmol/L (136-145)
[2022-11-17] MEDS ORDERED: Magnesium 2 GM/50 ML(in water) 2 GM in Premix Bag 1 BAG IVPB SCH (16:45)
[2022-11-17] MEDS ORDERED: Calcium Gluconate 100 MG/ML 10 ML IVPB SCH (16:45)
[2022-11-17 16:50] VITALS: BMI 18.9
[2022-11-17] MEDS ORDERED: Calcium Gluconate 9.2 MEQ in Sodium Chloride 0.9% 100 ML IVPB SCH (17:00)
[2022-11-17] MEDS: Carvedilol 6.25 MG TAB PO SCH (17:25)
[2022-11-17] MEDS: Lactated Ringer's 1,000 ML IV SCH (17:31)
[2022-11-17] MEDS: Acetaminophen 325 MG TAB PO PRN (20:01)
[2022-11-17] MEDS: rOPINIRole HCl 1 MG TAB PO SCH (20:01)
[2022-11-18] MEDS: Lactated Ringer's 1,000 ML IV SCH ×3 (01:23→15:05)
[2022-11-18] MEDS: Acetaminophen 325 MG TAB PO PRN ×3 (03:43→23:32)
[2022-11-18 06:09] LABS: #Basophils 0.1 thou/uL (0.0-0.2); #Eosinphils 0.1 thou/uL (0.0-0.7); #Lymphocytes 1.4 thou/uL (1.20-3.40); #Monocytes 0.5 thou/uL (0.11-0.59); #Neutrophils 6.7 thou/uL (1.40-6.50); %Basophils 0.6 % (0.0-1.0); %Eosinophils 1.2 % (0.0-10.0); %Lymphocytes 16.2 % (21.0-51.0); %Monocytes 5.3 % (0.0-10.0); %Neutrophils 76.7 % (42.0-75.0); Hemoglobin 8.4 g/dL (12.0-16.0); Mean Corpuscular HGB CONC 33.2 g/dL (32.0-36.0); Mean Corpuscular Hemoglobin 29.5 pg (27.0-31.0); Mean Corpuscular Volume 88.9 fl (78.0-98.0); Platelet Count 253 10x3/uL (130-400); RBC Distribution Width 13.3 % (11.5-14.5); Red Blood Cell (RBC) Count 2.85 mill/uL (4.20-5.40); White Blood Cell (WBC) Count 8.8 10x3/uL (4.8-10.8)
[2022-11-18 06:34] LABS: ALT (SGPT) 16 U/L (8-55); AST (SGOT) 20 U/L (5-34); Albumin 3.4 g/dL (3.4-4.8); Alkaline Phosphatase 49 U/L (40-110); Anion Gap 13 mmol/L (10-20); BUN (Urea Nitrogen) 8 mg/dL (9.8-20.1); Bilirubin, Total 0.4 mg/dL (0.2-1.2); Calc. Creatinine Clearance 35 mL/min (70-130); Calcium 8.1 mg/dL (7.8-10.44); Carbon Dioxide 23 mmol/L (23-31); Chloride 107 mmol/L (98-107); Estimated GFR 76; Globulin 2.6 g/dL (2.4-3.5); Glucose 109 mg/dL (80-115); Potassium 3.2 mmol/L (3.5-5.1); Sodium 140 mmol/L (136-145)
[2022-11-18 07:34] LABS: CK (CPK) 134 U/L (29-168); Creatinine, Urine Less than 20.00 mg/dL (47-110); Phosphorus 2.6 mg/dL (2.3-4.7)
[2022-11-18] MEDS: Carvedilol 6.25 MG TAB PO SCH ×2 (07:36→16:42)
[2022-11-18] MEDS: Amlodipine 10 MG TAB PO SCH (07:36)
[2022-11-18] MEDS: Sodium Bicarbonate Tab 325 MG TAB PO SCH ×3 (07:37→20:33)
[2022-11-18] MEDS: Pantoprazole 40 MG VIAL IVP SCH (07:37)
[2022-11-18] MEDS: Calcium Citrate 950 MG (200MG) TAB PO SCH (07:37)
[2022-11-18] MEDS ORDERED: Carvedilol 6.25 MG TAB PO SCH (08:30)
[2022-11-18] MEDS ORDERED: metFORMIN 500 MG TAB PO SCH (09:00)
[2022-11-18] MEDS ORDERED: Potassium Bicarbonate/Cit Ac 20 MEQ TAB PO SCH ×2 (09:00→13:00)
[2022-11-18] MEDS: Iron, Sodium Ferric Gluconate 250 MG in Sodium Chloride 0.9% 250 ML 250 ML IVPB SCH (09:16)
[2022-11-18 11:58] LABS: ANA Symphony (Qualitative) Negative (Negative); ANA Symphony (Quantitative) 0.2 Ratio (< 0.7 Negative); dsDNA IgG Antibody Less than 0.6 IU/mL (<10 Negative)
[2022-11-18] MEDS: HumaLOG 300 UNITS/3 ML VIAL SC PRN (12:12)
[2022-11-18] MEDS: metFORMIN 500 MG TAB PO SCH (16:42)
[2022-11-18] MEDS: rOPINIRole HCl 1 MG TAB PO SCH (20:33)
[2022-11-18] MEDS ORDERED: Pantoprazole 40 MG VIAL IVP SCH (21:00)
[2022-11-19] MEDS: Acetaminophen 325 MG TAB PO PRN ×2 (06:49→18:18)
[2022-11-19] MEDS: Carvedilol 6.25 MG TAB PO SCH (08:15)
[2022-11-19] MEDS: metFORMIN 500 MG TAB PO SCH ×2 (08:15→17:25)
[2022-11-19] MEDS: Amlodipine 10 MG TAB PO SCH (08:15)
[2022-11-19] MEDS: Sodium Bicarbonate Tab 325 MG TAB PO SCH ×3 (08:15→21:02)
[2022-11-19] MEDS: Iron, Sodium Ferric Gluconate 250 MG in Sodium Chloride 0.9% 250 ML 250 ML IVPB SCH (08:16)
[2022-11-19] MEDS: Calcium Citrate 950 MG (200MG) TAB PO SCH (08:16)
[2022-11-19 08:45] LABS: #Eosinphils 0.1 thou/uL (0.0-0.7); #Lymphocytes 0.9 thou/uL (1.20-3.40); #Monocytes 0.5 thou/uL (0.11-0.59); #Neutrophils 4.9 thou/uL (1.40-6.50); %Basophils 0.5 % (0.0-1.0); %Eosinophils 1.6 % (0.0-10.0); %Lymphocytes 14.3 % (21.0-51.0); %Monocytes 7.2 % (0.0-10.0); %Neutrophils 76.4 % (42.0-75.0); Hemoglobin 8.9 g/dL (12.0-16.0); Mean Corpuscular Volume 90.4 fl (78.0-98.0); Mean Platelet Volume 7.8 fL (7.4-10.4); Platelet Count 263 10x3/uL (130-400); RBC Distribution Width 13.2 % (11.5-14.5); Red Blood Cell (RBC) Count 3.07 mill/uL (4.20-5.40); White Blood Cell (WBC) Count 6.4 10x3/uL (4.8-10.8)
[2022-11-19] MEDS ORDERED: Carvedilol 25 MG TAB PO SCH ×2 (08:45→17:00)
[2022-11-19] MEDS ORDERED: Carvedilol 6.25 MG TAB PO SCH (09:00)
[2022-11-19 09:06] LABS: Anion Gap 12 mmol/L (10-20); BUN (Urea Nitrogen) 5 mg/dL (9.8-20.1); Calc. Creatinine Clearance 37 mL/min (70-130); Calcium 8.7 mg/dL (7.8-10.44); Carbon Dioxide 26 mmol/L (23-31); Chloride 105 mmol/L (98-107); Estimated GFR 81; Glucose 169 mg/dL (80-115); Magnesium 1.3 mg/dL (1.6-2.6); Potassium 2.7 mmol/L (3.5-5.1); Sodium 140 mmol/L (136-145)
[2022-11-19] MEDS ORDERED: Magnesium Sulfate 4 GM in Sodium Chloride 0.9% 250 ML 250 ML IVPB SCH (10:45)
[2022-11-19] MEDS ORDERED: Loperamide HCl 2 MG CAP PO PRN (10:46)
[2022-11-19] MEDS ORDERED: Simethicone Chewable 80 MG TAB PO PRN (10:47)
[2022-11-19] MEDS ORDERED: Magnesium Sulfate In Water 4 GM in Premix Bag 1 BAG IVPB SCH (11:00)
[2022-11-19] MEDS ORDERED: Loperamide HCl 2 MG CAP PO SCH (11:00)
[2022-11-19] MEDS: Potassium Bicarbonate/Cit Ac 20 MEQ TAB PO SCH ×3 (11:47→18:19)
[2022-11-19] MEDS: Dicyclomine 20 MG TAB PO SCH ×3 (11:48→21:02)
[2022-11-19] MEDS: HumaLOG 300 UNITS/3 ML VIAL SC PRN (11:49)
[2022-11-19] MEDS: Sodium Chloride 0.9% 500 ML IV SCH ×2 (17:00→17:23)
[2022-11-19] MEDS ORDERED: Sodium Chloride 0.9% 500 ML IV SCH (17:30)
[2022-11-19] MEDS: Albumin 25% 25 GM/100 ML BOT IVPB SCH ×2 (17:39→23:39)
[2022-11-19] MEDS: rOPINIRole HCl 1 MG TAB PO SCH (21:02)
[2022-11-20] MEDS: Albumin 25% 25 GM/100 ML BOT IVPB SCH ×2 (05:35→12:08)
[2022-11-20 06:03] LABS: Anion Gap 12 mmol/L (10-20); BUN (Urea Nitrogen) 9 mg/dL (9.8-20.1); Calc. Creatinine Clearance 37 mL/min (70-130); Calcium 8.5 mg/dL (7.8-10.44); Carbon Dioxide 23 mmol/L (23-31); Chloride 108 mmol/L (98-107); Estimated GFR 81; Glucose 104 mg/dL (80-115); Magnesium 2.3 mg/dL (1.6-2.6); Phosphorus 1.6 mg/dL (2.3-4.7); Potassium 2.7 mmol/L (3.5-5.1); Sodium 140 mmol/L (136-145)
[2022-11-20] MEDS: Calcium Citrate 950 MG (200MG) TAB PO SCH (08:59)
[2022-11-20] MEDS: Amlodipine 10 MG TAB PO SCH (08:59)
[2022-11-20] MEDS: Carvedilol 6.25 MG TAB PO SCH ×2 (08:59→17:26)
[2022-11-20] MEDS: metFORMIN 500 MG TAB PO SCH ×2 (08:59→17:26)
[2022-11-20] MEDS: Dicyclomine 20 MG TAB PO SCH ×2 (08:59→12:09)
[2022-11-20] MEDS: Potassium Bicarbonate/Cit Ac 20 MEQ TAB PO SCH ×2 (09:00→12:09)
[2022-11-20] MEDS ORDERED: Potassium Phosphate 30 MMOL in Sodium Chloride 0.9% 500 ML IVPB SCH (09:00)
[2022-11-20] MEDS: Iron, Sodium Ferric Gluconate 250 MG in Sodium Chloride 0.9% 250 ML 250 ML IVPB SCH (10:50)
[2022-11-20] MEDS: HumaLOG 300 UNITS/3 ML VIAL SC PRN (12:08)
[2022-11-20] MEDS: Acetaminophen 325 MG TAB PO PRN (13:16)
[2022-11-20 17:20] LABS: Anion Gap 15 mmol/L (10-20); BUN (Urea Nitrogen) 7 mg/dL (9.8-20.1); Calc. Creatinine Clearance 36 mL/min (70-130); Calcium 8.4 mg/dL (7.8-10.44); Carbon Dioxide 21 mmol/L (23-31); Chloride 107 mmol/L (98-107); Estimated GFR 77; Glucose 154 mg/dL (80-115); Phosphorus 4.5 mg/dL (2.3-4.7); Sodium 139 mmol/L (136-145)
[2022-11-20] MEDS ORDERED: Sodium Bicarbonate Tab 325 MG TAB PO SCH (18:00)
[2022-11-20] MEDS: rOPINIRole HCl 1 MG TAB PO SCH (19:53)
[2022-11-21] MEDS: HYDROcodone/Acetaminophen 5/325 mg Tablet PO PRN ×3 (03:21→18:12)
[2022-11-21] MEDS: Sodium Bicarbonate Tab 325 MG TAB PO SCH ×2 (08:16→20:04)
[2022-11-21] MEDS: metFORMIN 500 MG TAB PO SCH ×2 (08:16→16:17)
[2022-11-21] MEDS: Carvedilol 6.25 MG TAB PO SCH ×2 (08:16→16:17)
[2022-11-21] MEDS: Thiamine 100 MG TAB PO SCH (08:16)
[2022-11-21] MEDS: Amlodipine 10 MG TAB PO SCH (08:17)
[2022-11-21 10:34] LABS: Anion Gap 10 mmol/L (10-20); BUN (Urea Nitrogen) 7 mg/dL (9.8-20.1); Calc. Creatinine Clearance 37 mL/min (70-130); Calcium 9.1 mg/dL (7.8-10.44); Carbon Dioxide 24 mmol/L (23-31); Chloride 110 mmol/L (98-107); Estimated GFR 81; Glucose 145 mg/dL (80-115); Magnesium 1.6 mg/dL (1.6-2.6); Phosphorus 1.8 mg/dL (2.3-4.7); Potassium 4.1 mmol/L (3.5-5.1); Sodium 140 mmol/L (136-145)
[2022-11-21] MEDS ORDERED: Potassium Phosphate 15 MMOL in Sodium Chloride 0.9% 100 ML IVPB SCH (12:00)
[2022-11-21] MEDS ORDERED: PHOS-NAK 1 PKT PACK PO SCH (12:00)
[2022-11-21] MEDS: rOPINIRole HCl 1 MG TAB PO SCH (20:04)
[2022-11-22 06:00] LABS: Anion Gap 10 mmol/L (10-20); BUN (Urea Nitrogen) 8 mg/dL (9.8-20.1); Calc. Creatinine Clearance 39 mL/min (70-130); Carbon Dioxide 25 mmol/L (23-31); Chloride 105 mmol/L (98-107); Estimated GFR 86; Glucose 100 mg/dL (80-115); Magnesium 1.2 mg/dL (1.6-2.6); Phosphorus 1.8 mg/dL (2.3-4.7); Sodium 136 mmol/L (136-145)
[2022-11-22] MEDS ORDERED: Ferrous Gluconate 324 MG TAB PO SCH (08:00)
[2022-11-22] MEDS: Amlodipine 10 MG TAB PO SCH (08:35)
[2022-11-22] MEDS: Carvedilol 6.25 MG TAB PO SCH (08:35)
[2022-11-22] MEDS: metFORMIN 500 MG TAB PO SCH ×2 (08:36→17:18)
[2022-11-22] MEDS: Sodium Bicarbonate Tab 325 MG TAB PO SCH (08:36)
[2022-11-22] MEDS: Thiamine 100 MG TAB PO SCH (08:36)
[2022-11-22] MEDS: HYDROcodone/Acetaminophen 5/325 mg Tablet PO PRN ×2 (08:44→17:18)
[2022-11-22] MEDS ORDERED: PHOS-NAK 1 PKT PACK PO SCH ×2 (09:00→21:00)
[2022-11-22] MEDS ORDERED: Carvedilol 25 MG TAB PO SCH ×2 (10:15→17:00)
[2022-11-22] MEDS ORDERED: Magnesium Sulfate In Water 4 GM in Premix Bag 1 BAG IVPB SCH (10:15)
[2022-11-22 17:24] VITALS: BP 126/64; TEMP 98.9
[2022-11-22] MEDS ORDERED: Magnesium Oxide 400 MG TAB PO SCH (21:00)
== END 2022-11-22 18:08 | disposition home or self-care (01) | DRG 640 ==
LOC: ERS 06:28 → SUATTDRO 06:28 → CCU 10:44 → T4-A 11-17 18:19
PROVIDERS: ADMIT Internal Medicine; ATTEND Internal Medicine
PROC: 3E033XZ Introduction of Vasopressor into Peripheral Vein, Percutaneous Approach (ICD-10-PCS; principal; 2022-11-16)
PROC: 02HV33Z Insertion of Infusion Device into Superior Vena Cava, Percutaneous Approach (ICD-10-PCS; 2022-11-16)
PROC: B548ZZA Ultrasonography of Superior Vena Cava, Guidance (ICD-10-PCS; 2022-11-16)
PROC: 0DB68ZX Excision of Stomach, Via Natural or Artificial Opening Endoscopic, Diagnostic (ICD-10-PCS; 2022-11-17)
DX: E86.1 Hypovolemia (principal); E43 Unspecified severe protein-calorie malnutrition; N17.9 Acute kidney failure, unspecified; Z68.1 Body mass index [BMI] 19.9 or less, adult; R64 Cachexia; Z66 Do not resuscitate; E86.9 Volume depletion, unspecified; E87.20 Acidosis, unspecified; R13.10 Dysphagia, unspecified; G25.81 Restless legs syndrome; E11.40 Type 2 diabetes mellitus with diabetic neuropathy, unspecified; K21.9 Gastro-esophageal reflux disease without esophagitis; E87.8 Other disorders of electrolyte and fluid balance, not elsewhere classified; E86.0 Dehydration; G89.29 Other chronic pain; M81.0 Age-related osteoporosis without current pathological fracture; K31.89 Other diseases of stomach and duodenum; D63.8 Anemia in other chronic diseases classified elsewhere; T38.3X5A Adverse effect of insulin and oral hypoglycemic [antidiabetic] drugs, initial encounter; I95.89 Other hypotension; M19.90 Unspecified osteoarthritis, unspecified site; Z87.11 Personal history of peptic ulcer disease; Z79.899 Other long term (current) drug therapy; Z79.84 Long term (current) use of oral hypoglycemic drugs
CPT/HCPCS: 36415; 36416; 36556; 51702; 70450; 71045; 74177; 80048; 80053; 80306; 80307; 81003; 81015; 82085; 82105; 82150; 82378; 82550; 82805; 83036; 83540; 83550; 83605; 83690; 83735; 84100; 84439; 84443; 84484; 85025; 85652; 86038; 86225; 86850; 86900; 86901; 87040; 87086; 87324; 87449; 88305; 93005; 96361; 96365; 96368; 96375; 96376; C9113; J0360; J0612; J0692; J1200; J1650; J1815; J1885; J2405; J2704; J2916; J3370; J3411; J3475; J3480; J3490; J7030; J7050; J7070; J7120; P9047; Q9967

== ENCOUNTER 2022-12-17 11:34 | Emergency (ER) | payer MEDICARE, OTHER ==
[2022-12-17] MEDS ORDERED: Ondansetron PF 4 MG/2 ML Vial ONE (13:48)
[2022-12-17] MEDS ORDERED: traMADol HCl 50 MG TAB ONE (13:48)
[2022-12-17 14:31] LABS: Bilirubin Negative (Negative); Blood, Urine Negative (Negative); Clarity Clear (Clear); Glucose, Urine (Dipstick) Normal (Negative); Ketone, Urine Negative (Negative); Leukocyte 75 Leu/uL (Negative); Nitrite Negative (Negative); Protein, Urine (Dipstick) 10 mg/dL (Neg-Trace); RBC/HPF 0-3 HPF (0-3); Squamous Epithelial 0-3 HPF (0-3); Urobilinogen Normal mg/dL (Less than 2); WBC/HPF 21-50 HPF (0-3)
[2022-12-17 14:32] LABS: Bacteria/HPF 1+ HPF (None Seen)
[2022-12-17] MEDS ORDERED: Aspirin Chewable 81 MG TAB ONE (15:24)
[2022-12-17 16:39] LABS: #Basophils 0.1 thou/uL (0.0-0.2); #Monocytes 0.4 thou/uL (0.11-0.59); #Neutrophils 8.1 thou/uL (1.40-6.50); %Basophils 0.6 % (0.0-1.0); %Eosinophils 0.1 % (0.0-10.0); %Lymphocytes 13.9 % (21.0-51.0); %Monocytes 3.9 % (0.0-10.0); Hemoglobin 10.1 g/dL (12.0-16.0); Mean Corpuscular HGB CONC 31.7 g/dL (32.0-36.0); Mean Corpuscular Hemoglobin 30.1 pg (27.0-31.0); Mean Corpuscular Volume 94.9 fl (78.0-98.0); Mean Platelet Volume 9.6 fL (7.4-10.4); Platelet Count 408 10x3/uL (130-400); RBC Distribution Width 17.7 % (11.5-14.5); Red Blood Cell (RBC) Count 3.36 mill/uL (4.20-5.40); White Blood Cell (WBC) Count 9.9 10x3/uL (4.8-10.8)
[2022-12-17 17:04] LABS: ALT (SGPT) 128 U/L (8-55); AST (SGOT) 82 U/L (5-34); Albumin 3.6 g/dL (3.4-4.8); Alkaline Phosphatase 103 U/L (40-110); Anion Gap 13 mmol/L (10-20); BUN (Urea Nitrogen) 29 mg/dL (9.8-20.1); Bilirubin, Total 0.3 mg/dL (0.2-1.2); Calc. Creatinine Clearance 0 mL/min (70-130); Calcium 8.6 mg/dL (7.8-10.44); Carbon Dioxide 11 mmol/L (23-31); Chloride 116 mmol/L (98-107); Estimated GFR 74; Globulin 3.1 g/dL (2.4-3.5); Glucose 137 mg/dL (80-115); Potassium 3.4 mmol/L (3.5-5.1); Protein, Total 6.7 g/dL (5.8-8.1); Sodium 137 mmol/L (136-145)
== END 2022-12-17 17:48 | disposition home or self-care (01) ==
LOC: ERS 11:34
DX: N39.0 Urinary tract infection, site not specified (principal); E11.40 Type 2 diabetes mellitus with diabetic neuropathy, unspecified; I10 Essential (primary) hypertension; Z79.899 Other long term (current) drug therapy; Z79.84 Long term (current) use of oral hypoglycemic drugs
CPT/HCPCS: 36415; 80053; 81003; 81015; 84484; 85025; 93005; 96361; 96374; J2405

== ENCOUNTER 2022-12-22 11:21 | Emergency (ER) | payer OTHER ==
[2022-12-22] MEDS ORDERED: Dexamethasone 10 MG/ML VIAL ONE (13:11)
== END 2022-12-22 13:23 | disposition home or self-care (01) ==
LOC: ERS 11:21
DX: M54.50 Low back pain, unspecified (principal); E11.9 Type 2 diabetes mellitus without complications; I10 Essential (primary) hypertension; Z79.899 Other long term (current) drug therapy; Z79.84 Long term (current) use of oral hypoglycemic drugs
CPT/HCPCS: 96372; 99283; J1100

== ENCOUNTER 2023-01-22 19:22 | Inpatient (IN) | payer OTHER ==
[2023-01-22 20:01] LABS: #Eosinphils 0.1 thou/uL (0.0-0.7); #Monocytes 0.8 thou/uL (0.11-0.59); #Neutrophils 3.7 thou/uL (1.40-6.50); %Basophils 0.5 % (0.0-1.0); %Eosinophils 2.1 % (0.0-10.0); %Lymphocytes 19.6 % (21.0-51.0); %Monocytes 13.9 % (0.0-10.0); %Neutrophils 63.4 % (42.0-75.0); Hemoglobin 10.2 g/dL (12.0-16.0); Mean Corpuscular HGB CONC 34.1 g/dL (32.0-36.0); Mean Corpuscular Hemoglobin 31.6 pg (27.0-31.0); Mean Corpuscular Volume 92.6 fl (78.0-98.0); Mean Platelet Volume 9.5 fL (7.4-10.4); Platelet Count 411 10x3/uL (130-400); RBC Distribution Width 16.7 % (11.5-14.5); Red Blood Cell (RBC) Count 3.23 mill/uL (4.20-5.40); White Blood Cell (WBC) Count 5.8 10x3/uL (4.8-10.8)
[2023-01-22 20:38] LABS: ALT (SGPT) 32 U/L (8-55); AST (SGOT) 29 U/L (5-34); Alkaline Phosphatase 119 U/L (40-110); Anion Gap 12 mmol/L (10-20); BUN (Urea Nitrogen) 17 mg/dL (9.8-20.1); Bilirubin, Total Less than 0.2 mg/dL (0.2-1.2); Calc. Creatinine Clearance 0 mL/min (70-130); Calcium 9.5 mg/dL (7.8-10.44); Carbon Dioxide 19 mmol/L (23-31); Chloride 107 mmol/L (98-107); Estimated GFR 59; Globulin 3.4 g/dL (2.4-3.5); Glucose 199 mg/dL (80-115); Potassium 3.3 mmol/L (3.5-5.1); Protein, Total 7.4 g/dL (5.8-8.1); Sodium 135 mmol/L (136-145)
[2023-01-22 21:08] LABS: Bilirubin Negative (Negative); Blood, Urine Negative (Negative); CAUTI Indications for Culture Pelvic or flank pain; Clarity Clear (Clear); Glucose, Urine (Dipstick) Normal (Negative); Ketone, Urine Negative (Negative); Leukocyte 75 Leu/uL (Negative); Nitrite Negative (Negative); Protein, Urine (Dipstick) Negative (Neg-Trace); RBC/HPF 0-3 HPF (0-3); Specific Gravity, Urine 1.007 (1.002-1.036); Squamous Epithelial 0-3 HPF (0-3); Urobilinogen Normal mg/dL (Less than 2)
[2023-01-22] MEDS ORDERED: Haloperidol Lactate 5 MG/ML VIAL ONE (21:12)
[2023-01-22 21:14] LABS: Bacteria/HPF 1+ HPF (None Seen)
[2023-01-22 21:15] LABS: Urine Culture Reflex Yes Yes
[2023-01-22] MEDS ORDERED: hydrALAZINE 20 MG/ML VIAL ONE (21:33)
[2023-01-22] MEDS ORDERED: Potassium Chloride 20 MEQ TAB ONE (22:29)
[2023-01-22] MEDS ORDERED: Morphine 4 MG/ML VIAL ONE (22:29)
[2023-01-22] MEDS ORDERED: HumaLOG 300 UNITS/3 ML VIAL SC PRN ×2 (23:54)
[2023-01-22] MEDS ORDERED: Glucagon 1 MG/ML KIT IM PRN (23:54)
[2023-01-22] MEDS ORDERED: Acetaminophen 650 MG Suppository PR PRN (23:54)
[2023-01-22] MEDS ORDERED: Ondansetron ODT 4 MG TAB PO PRN (23:54)
[2023-01-22] MEDS ORDERED: Ondansetron PF 4 MG/2 ML Vial IVP PRN (23:54)
[2023-01-22] MEDS ORDERED: Dextrose 5% in Water 1,000 ML IV PRN (23:54)
[2023-01-22] MEDS ORDERED: Acetaminophen 325 MG TAB PO PRN (23:54)
[2023-01-22] MEDS ORDERED: Dextrose 50% Abboject 50 ML SYRINGE SLOW IVP PRN (23:54)
[2023-01-23] MEDS ORDERED: Pregabalin 75 MG CAP PO SCH (00:15)
[2023-01-23 01:34] VITALS: BMI 18.2
[2023-01-23 05:09] LABS: #Eosinphils 0.2 thou/uL (0.0-0.7); #Monocytes 0.6 thou/uL (0.11-0.59); #Neutrophils 2.5 thou/uL (1.40-6.50); %Basophils 0.9 % (0.0-1.0); %Eosinophils 3.6 % (0.0-10.0); %Lymphocytes 26.7 % (21.0-51.0); %Monocytes 13.3 % (0.0-10.0); %Neutrophils 55.1 % (42.0-75.0); Hemoglobin 9.3 g/dL (12.0-16.0); Mean Corpuscular HGB CONC 33.9 g/dL (32.0-36.0); Mean Corpuscular Hemoglobin 31.3 pg (27.0-31.0); Mean Corpuscular Volume 92.3 fl (78.0-98.0); Mean Platelet Volume 9.6 fL (7.4-10.4); Platelet Count 382 10x3/uL (130-400); RBC Distribution Width 16.5 % (11.5-14.5); Red Blood Cell (RBC) Count 2.97 mill/uL (4.20-5.40); White Blood Cell (WBC) Count 4.5 10x3/uL (4.8-10.8)
[2023-01-23 05:33] LABS: Anion Gap 10 mmol/L (10-20); BUN (Urea Nitrogen) 15 mg/dL (9.8-20.1); Calc. Creatinine Clearance 39 mL/min (70-130); Calcium 8.9 mg/dL (7.8-10.44); Carbon Dioxide 19 mmol/L (23-31); Chloride 113 mmol/L (98-107); Estimated GFR 89; Glucose 113 mg/dL (80-115); Sodium 139 mmol/L (136-145)
[2023-01-23 06:20] LABS: Magnesium 1.7 mg/dL (1.6-2.6)
[2023-01-23] MEDS: Ferrous Gluconate 324 MG TAB PO SCH (07:54)
[2023-01-23] MEDS ORDERED: Potassium Chloride 20 MEQ TAB PO SCH ×2 (08:00)
[2023-01-23] MEDS ORDERED: Magnesium 2 GM/50 ML(in water) 2 GM in Premix Bag 1 BAG IVPB SCH (08:00)
[2023-01-23] MEDS ORDERED: Carvedilol 25 MG TAB PO SCH (08:00)
[2023-01-23] MEDS: traMADol HCl 50 MG TAB PO SCH ×3 (10:20→22:39)
[2023-01-23] MEDS: Magnesium Oxide 400 MG TAB PO SCH ×2 (10:21→20:41)
[2023-01-23] MEDS: Amlodipine 10 MG TAB PO SCH (10:21)
[2023-01-23 14:51] LABS: Potassium 5.4 mmol/L (3.5-5.1)
[2023-01-23] MEDS: Ciprofloxacin 500 MG TAB PO SCH (20:39)
[2023-01-23] MEDS ORDERED: Cyclobenzaprine 10 MG TAB PO SCH (21:00)
[2023-01-24] MEDS: Ciprofloxacin 500 MG TAB PO SCH (05:06)
[2023-01-24 05:42] LABS: Anion Gap 12 mmol/L (10-20); BUN (Urea Nitrogen) 31 mg/dL (9.8-20.1); Calc. Creatinine Clearance 30 mL/min (70-130); Calcium 8.6 mg/dL (7.8-10.44); Carbon Dioxide 16 mmol/L (23-31); Chloride 111 mmol/L (98-107); Estimated GFR 65; Glucose 94 mg/dL (80-115); Magnesium 2.5 mg/dL (1.6-2.6); Potassium 4.9 mmol/L (3.5-5.1); Sodium 134 mmol/L (136-145)
[2023-01-24] MEDS: traMADol HCl 50 MG TAB PO SCH ×2 (08:55→14:58)
[2023-01-24] MEDS: Ferrous Gluconate 324 MG TAB PO SCH (08:56)
[2023-01-24] MEDS: Amlodipine 10 MG TAB PO SCH (08:56)
[2023-01-24] MEDS: Magnesium Oxide 400 MG TAB PO SCH (08:56)
[2023-01-24] MEDS ORDERED: Pregabalin 75 MG CAP PO SCH (09:00)
[2023-01-24 15:54] VITALS: BP 107/59; TEMP 98
== END 2023-01-24 17:45 | disposition home or self-care (01) | DRG 74 ==
LOC: ERS 19:22 → 2SW 23:18 → OBSVTOIN 01-24 09:20
PROVIDERS: ADMIT Student in an Organized Health Care Education/Training Program; ATTEND Family Medicine
DX: E11.40 Type 2 diabetes mellitus with diabetic neuropathy, unspecified (principal); N39.0 Urinary tract infection, site not specified; I16.0 Hypertensive urgency; I10 Essential (primary) hypertension; K21.9 Gastro-esophageal reflux disease without esophagitis; M81.0 Age-related osteoporosis without current pathological fracture; G25.81 Restless legs syndrome; E87.6 Hypokalemia; E83.42 Hypomagnesemia; B96.20 Unspecified Escherichia coli [E. coli] as the cause of diseases classified elsewhere; Z79.899 Other long term (current) drug therapy
CPT/HCPCS: 36415; 36416; 71045; 80048; 80053; 81001; 83605; 83735; 84484; 85025; 87040; 87077; 87086; 87186; 93005; 96365; 96374; 96375; G0378; J0360; J1630; J1815; J2270; J3475

== ENCOUNTER 2023-12-14 17:34 | Emergency (ER) | payer OTHER ==
[2023-12-14] MEDS ORDERED: Ketorolac Tromethamine 30 MG (1 mL) VIAL ONE (20:11)
== END 2023-12-14 20:42 | disposition home or self-care (01) ==
LOC: ERS 17:34
DX: G89.29 Other chronic pain (principal); M79.662 Pain in left lower leg; M79.661 Pain in right lower leg
CPT/HCPCS: 96372; J1885

== ENCOUNTER 2023-12-18 16:23 | Emergency (ER) | payer OTHER | END 2023-12-18 17:34 | disposition home or self-care (01) | LOC: ERS 16:23 | DX: G89.29 Other chronic pain (principal); M79.662 Pain in left lower leg; M79.661 Pain in right lower leg | CPT/HCPCS: 99282 ==

== ENCOUNTER 2025-03-29 17:08 | Emergency (ER) | payer MEDICARE, OTHER ==
[2025-03-29 18:06] LABS: CAUTI Indications for Culture Dysuria,urgency,freq; Glucose, Urine (Dipstick) Normal (Negative); Leukocyte 250 Leu/uL (Negative); Protein, Urine (Dipstick) 20 mg/dL (Neg-Trace); Specific Gravity, Urine 1.023 (1.002-1.036)
[2025-03-29 18:10] LABS: Bacteria/HPF 1+ HPF (None Seen)
[2025-03-29 18:11] LABS: Urine Culture Reflex Yes Yes
[2025-03-29 19:01] LABS: #Basophils 0.04 10x3/uL (0.0-0.2); #Eosinophils 0.04 10x3/uL (0.0-0.7); #Monocytes 0.54 10x3/uL (0.11-0.59); #Neutrophils 9.05 10x3/uL (1.40-6.50); %Basophils 0.4 % (0.0-1.0); %Eosinophils 0.4 % (0.0-10.0); %Lymphocytes 14.6 % (21.0-51.0); %Monocytes 4.7 % (0.0-10.0); %Neutrophils 79.5 % (42.0-75.0); Hematocrit 32.7 % (36.0-47.0); Hemoglobin 10.8 g/dL (12.0-16.0); Mean Corpuscular Hemoglobin 29.8 pg (27.0-31.0); Mean Corpuscular Volume 90.3 fL (78.0-98.0); Platelet Count 438 10x3/uL (130-400); Red Blood Cell (RBC) Count 3.62 mill/uL (4.20-5.40); White Blood Cell (WBC) Count 11.37 10x3/uL (4.8-10.8)
[2025-03-29 19:22] LABS: ALT (SGPT) 42 U/L (Less than 34); AST (SGOT) 52 U/L (11-34); Albumin 4.0 g/dL (3.1-4.5); Alkaline Phosphatase 107 U/L (40-110); Anion Gap 16 mmol/L (10-20); BUN (Urea Nitrogen) 20 mg/dL (9.8-20.1); Bilirubin, Total 0.2 mg/dL (0.3-1.2); Calc. Creatinine Clearance 0 mL/min (70-130); Calcium 9.9 mg/dL (7.8-10.44); Carbon Dioxide 19 mmol/L (23-31); Chloride 102 mmol/L (98-107); Globulin 3.3 g/dL (2.4-3.5); Glucose 153 mg/dL (80-115); Potassium 4.1 mmol/L (3.5-5.1); Sodium 133 mmol/L (136-145)
[2025-03-29] MEDS ORDERED: Ketorolac Tromethamine 30 MG (1 mL) VIAL ONE (20:35)
== END 2025-03-29 21:38 | disposition home or self-care (01) ==
LOC: ERS 17:08
DX: R25.2 Cramp and spasm (principal); E11.9 Type 2 diabetes mellitus without complications; I10 Essential (primary) hypertension; J45.909 Unspecified asthma, uncomplicated
CPT/HCPCS: 36415; 72170; 80053; 81001; 82550; 85025; 85379; 87086; 93970; 96372; J1885

== ENCOUNTER 2025-04-12 16:20 | Emergency (ER) | payer MEDICARE | END 2025-04-12 18:04 | disposition home or self-care (01) | LOC: ERS 16:20 | DX: M79.605 Pain in left leg (principal); M79.604 Pain in right leg; E11.9 Type 2 diabetes mellitus without complications; I10 Essential (primary) hypertension | CPT/HCPCS: 99282 ==

== ENCOUNTER 2025-04-18 18:26 | Emergency (ER) | payer MEDICARE ==
[2025-04-18] MEDS ORDERED: Ketorolac Tromethamine 30 MG (1 mL) VIAL ONE (19:30)
[2025-04-18] MEDS ORDERED: HYDROcodone/Acetaminophen 5/325 mg Tablet ONE (19:30)
== END 2025-04-18 20:00 | disposition home or self-care (01) ==
LOC: ERS 18:26
DX: G89.29 Other chronic pain (principal); M79.604 Pain in right leg; M79.605 Pain in left leg; E11.9 Type 2 diabetes mellitus without complications; I10 Essential (primary) hypertension
CPT/HCPCS: 96372; 99283; J1885

== ENCOUNTER 2025-04-20 22:33 | Emergency (ER) | payer MEDICARE ==
[2025-04-21] MEDS ORDERED: Ketorolac Tromethamine 30 MG (1 mL) VIAL ONE
[2025-04-21] MEDS ORDERED: HYDROcodone/Acetaminophen 5/325 mg Tablet ONE
== END 2025-04-21 00:44 | disposition home or self-care (01) ==
LOC: ERS 22:33
DX: M79.662 Pain in left lower leg (principal); M79.604 Pain in right leg; I10 Essential (primary) hypertension; E11.9 Type 2 diabetes mellitus without complications
CPT/HCPCS: 96372; 99282; J1885

== ENCOUNTER 2025-04-22 03:42 | Emergency (ER) | payer MEDICARE ==
[2025-04-22] MEDS ORDERED: Ketorolac Tromethamine 30 MG (1 mL) VIAL ONE (05:22)
[2025-04-22] MEDS ORDERED: HYDROcodone/Acetaminophen 5/325 mg Tablet ONE (05:22)
== END 2025-04-22 05:45 | disposition home or self-care (01) ==
LOC: ERS 03:42
DX: M79.605 Pain in left leg (principal); M79.604 Pain in right leg; G89.29 Other chronic pain; I10 Essential (primary) hypertension; E11.9 Type 2 diabetes mellitus without complications; Z55.6 Problems related to health literacy
CPT/HCPCS: 96372; 99283; J1885

== ENCOUNTER 2025-04-28 19:46 | Emergency (ER) | payer MEDICARE ==
[2025-04-28] MEDS ORDERED: HYDROcodone/Acetaminophen 5/325 mg Tablet ONE (22:05)
== END 2025-04-28 22:22 | disposition home or self-care (01) ==
LOC: ERS 19:46
DX: M79.604 Pain in right leg (principal); M79.605 Pain in left leg; E11.9 Type 2 diabetes mellitus without complications; I10 Essential (primary) hypertension; Z79.899 Other long term (current) drug therapy
CPT/HCPCS: 99283

== ENCOUNTER 2025-05-10 14:16 | Outpatient (CLI) | payer MEDICARE | END 2025-05-10 14:17 | disposition home or self-care (01) | LOC: BICMAMMO 14:16 | PROVIDERS: ATTEND Internal Medicine Rheumatology | DX: M81.0 Age-related osteoporosis without current pathological fracture (principal) | CPT/HCPCS: 77080 ==